=== PATIENT | female | born 1960 | race Caucasian/White ===

== ENCOUNTER → 2017-01-01 | Outpatient (REF) | payer MEDICARE, MEDICAID ==
[~2017-01-01] MED LIST: *PREMTA PO; /BACL20TA PO; /DULO30CA PO; /ESOM40CA PO; /ZOLP6ER PO; 3 DA0.1C TOP; ACET65TA OR; ALLE180T33 PO; AMBI12.52 PO; AMBIEN PO; AMIT25TA PO; AMOX250C3 PO; ASPI1TAB PO; ATOR1TAB21 PO; BUSP15TA PO; BUSP30TA PO; BUSPAR PO; CALCIUM/VIT D PO; CALCTAB68 PO; CETI10TA PO; COLA100C PO; COLA100C2 OR; CYCL10TA PO; DICL13PA TD; DULO1CAP3 PO; FLAG500T OR; GABA800T PO; KEFL250C OR; KEFL500C7 PO; LIDO5DIS TOP; METF1000 PO; METH-107 PO; MIRA3350 PO; MIRALEX OR; MIRALEX PO; MULTTAB17 PO; NEUR300C PO; NEUR600T PO; NORC5TAB PO; OMEP20TA7 PO; OXYB5TA PO; OXYC-517 PO; OXYC5CAP4 OR; PERC5TAB8 PO; REST0.05 OU; RIZA10TA2 PO; VICTOZA SC; VITA-113 PO; VITMTA PO; ZONI25CA2 PO; [UNRECOGNIZED DRUG - OTHER]
== END ==
LOC: M SFHCPLAZ 10:02
PROVIDERS: ATTEND Family Medicine
DX: Z53.8 Procedure and treatment not carried out for other reasons (principal); E11.3299 Type 2 diabetes mellitus wit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, unspecified eye; E55.9 Vitamin D deficiency, unspecified

== ENCOUNTER → 2017-01-21 | Outpatient (REF) | payer MEDICARE, MEDICAID ==
[2017-01-21 18:35] LABS: BASO % 0.4 % (0.0-1.0); EOS # 0.4 K/mm3 (0.0-0.50); EOS % 6.8 % (0.0-3.0); LARGE UNSTAINED CELL # 0.1 K/mm3 (0.0-0.4); LARGE UNSTAINED CELL % 2.3 % (0.0-4.0); LYMPH # 1.8 K/mm3 (1.5-4.5); MEAN CORPUSCULAR HEMOGLOBIN 35.8 pg (27.0-33.0); MEAN CORPUSCULAR VOLUME 105.4 fl (80.0-96.0); MONO # 0.4 K/mm3 (0.0-0.8); MONO % 7.2 % (0.0-5.0); NEUTROPHILS # 2.9 K/mm3 (1.8-7.7); NEUTROPHILS % 51.1 % (36.0-66.0); PLATELET COUNT, AUTOMATED 224 k/mm3 (150-450); RED CELL DISTRIBUTION WIDTH 12.4 % (11.5-14.5); WHITE BLOOD COUNT 5.7 K/mm3 (4.0-10.0)
[2017-01-21 18:58] LABS: ALBUMIN 3.2 GM/DL (3.2-5.2); ALBUMIN/GLOBULIN RATIO 1.03 (1.00-1.93); ALKALINE PHOSPHATASE 128 U/L (45-117); ALT/SGPT 25 U/L (12-78); ANION GAP 10 MEQ/L (8-16); AST/SGOT 35 U/L (15-37); BILIRUBIN,TOTAL 0.3 MG/DL (0.2-1.0); BLOOD UREA NITROGEN 11 MG/DL (7-18); CALCIUM LEVEL 8.3 MG/DL (8.5-10.1); CARBON DIOXIDE LEVEL 24 MEQ/L (21-32); CHLORIDE LEVEL 108 MEQ/L (98-107); CREATININE FOR GFR 0.68 MG/DL (0.55-1.02); GLOMERULAR FILTRATION RATE > 60.0 (>51); GLUCOSE, FASTING 158 MG/DL (70-105); POTASSIUM SERUM 4.3 MEQ/L (3.5-5.1); SODIUM LEVEL 142 MEQ/L (136-145); TOTAL PROTEIN 6.3 GM/DL (6.4-8.2)
[2017-01-21 19:21] LABS: FOLATE > 24.0 NG/ML; VITAMIN B12 LEVEL 1135 PG/ML
[2017-01-26 08:06] LABS: VITAMIN E LEVEL 9.2 mg/L (5.3-16.8)
== END ==
LOC: M LABNEURO 14:32
PROVIDERS: ATTEND Psychiatry & Neurology Neurology
DX: M21.379 Foot drop, unspecified foot (principal); S72.009S Fracture of unspecified part of neck of unspecified femur, sequela; Z98.1 Arthrodesis status; X58.XXXS Exposure to other specified factors, sequela; Y93.9 Activity, unspecified; Y92.9 Unspecified place or not applicable; Y99.8 Other external cause status

== ENCOUNTER → 2017-02-12 | Outpatient (REF) | payer MEDICARE, MEDICAID ==
[2017-02-12 14:10] LABS: ALBUMIN 3.2 GM/DL (3.2-5.2); ALKALINE PHOSPHATASE 125 U/L (45-117); ALT/SGPT 21 U/L (12-78); ANION GAP 6 MEQ/L (8-16); AST/SGOT 29 U/L (15-37); BILIRUBIN,TOTAL 0.4 MG/DL (0.2-1.0); BLOOD UREA NITROGEN 12 MG/DL (7-18); CALCIUM LEVEL 8.9 MG/DL (8.5-10.1); CARBON DIOXIDE LEVEL 28 MEQ/L (21-32); CHLORIDE LEVEL 108 MEQ/L (98-107); CHOLESTEROL LEVEL 87 MG/DL (<200); CREATININE FOR GFR 0.75 MG/DL (0.55-1.02); GLOMERULAR FILTRATION RATE > 60.0 (>51); GLUCOSE, FASTING 166 MG/DL (70-105); POTASSIUM SERUM 4.1 MEQ/L (3.5-5.1); SODIUM LEVEL 142 MEQ/L (136-145); TOTAL PROTEIN 6.4 GM/DL (6.4-8.2); TRIGLYCERIDES LEVEL 73 MG/DL (<150)
== END ==
LOC: M SFHCPLAZ 10:59
PROVIDERS: ATTEND Family Medicine
DX: E11.9 Type 2 diabetes mellitus without complications (principal); E55.9 Vitamin D deficiency, unspecified

== ENCOUNTER → 2017-04-01 | Outpatient (REF) | payer MEDICARE, MEDICAID ==
[~2017-04-01] MED LIST changes: -COLA100C PO; +COLA100C3 PO; +NORC1TAB4 PO; -NORC5TAB PO
[2017-04-01 13:00] LABS: ANION GAP 7 MEQ/L (8-16); BLOOD UREA NITROGEN 16 MG/DL (7-18); CALCIUM LEVEL 8.6 MG/DL (8.5-10.1); CARBON DIOXIDE LEVEL 31 MEQ/L (21-32); CHLORIDE LEVEL 103 MEQ/L (98-107); CREATININE FOR GFR 0.86 MG/DL (0.55-1.02); GLOMERULAR FILTRATION RATE > 60.0 (>51); GLUCOSE, FASTING 162 MG/DL (70-105); POTASSIUM SERUM 3.8 MEQ/L (3.5-5.1); SODIUM LEVEL 141 MEQ/L (136-145)
== END ==
LOC: M SFHCPLAZ 11:04
PROVIDERS: ATTEND Family Medicine
DX: E53.8 Deficiency of other specified B group vitamins (principal); E11.3299 Type 2 diabetes mellitus wit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, unspecified eye

== ENCOUNTER → 2017-04-15 | Outpatient (REF) | payer MEDICARE, MEDICAID ==
[2017-04-15 14:24] LABS: ANION GAP 10 MEQ/L (8-16); BLOOD UREA NITROGEN 13 MG/DL (7-18); CALCIUM LEVEL 8.4 MG/DL (8.5-10.1); CARBON DIOXIDE LEVEL 29 MEQ/L (21-32); CHLORIDE LEVEL 100 MEQ/L (98-107); CREATININE FOR GFR 0.78 MG/DL (0.55-1.02); GLOMERULAR FILTRATION RATE > 60.0 (>51); GLUCOSE, FASTING 121 MG/DL (70-105); POTASSIUM SERUM 4.2 MEQ/L (3.5-5.1); SODIUM LEVEL 139 MEQ/L (136-145)
== END ==
LOC: M SFHCPLAZ 12:13
PROVIDERS: ATTEND Physician Assistant Medical
DX: N18.3 Chronic kidney disease, stage 3 (moderate) (principal)
CPT/HCPCS: 36415; 80048; 86803; G0463

== ENCOUNTER → 2017-05-16 | Outpatient (REF) | payer MEDICARE, MEDICAID ==
[~2017-05-16] MED LIST changes: +ASPI81TAEC PO; +BACT400T PO; -COLA100C3 PO; +COLA100C5 PO; +DICL13PA TOP; +DULO1CAP2 PO; +FISH1000 PO; +HYDR-3716 PO; +HYDR1CAP25 PO; +KEFL500C17 PO; -KEFL500C7 PO; -METF1000 PO; +METF10004 PO; -METH-107 PO; +METH1TAB40 PO; +NAPR500T6 PO; +OMEP40CA2 PO; -OXYB5TA PO; +OXYB5TAB10 PO; +PEG1POW PO; +PERCOCET PO; +VICT18IN SC; +VIST25CA PO; +VITA200016 PO; +VITA500T3 PO; +ZOLP5TAB PO; +ZONI100C2 PO
== END ==
LOC: M SFHCPLAZ 15:01
PROVIDERS: ATTEND Family Medicine
DX: N39.0 Urinary tract infection, site not specified (principal)
CPT/HCPCS: 81001; 87088; 87186; G0463

== ENCOUNTER 2017-08-08 12:45 | Emergency (ER) | payer MEDICARE, MEDICAID ==
[~2017-08-08] VITALS: Ht 152.4 cm; Wt 91.0 kg
[~2017-08-08 12:45] MED LIST changes: -ASPI81TAEC PO; -BACT400T PO; -DICL13PA TOP; -DULO1CAP2 PO; -FISH1000 PO; -HYDR-3716 PO; -HYDR1CAP25 PO; -NAPR500T6 PO; -OMEP40CA2 PO; -PEG1POW PO; -PERCOCET PO; -VICT18IN SC; -VIST25CA PO; -VITA200016 PO; -VITA500T3 PO; -ZOLP5TAB PO; -ZONI100C2 PO
[2017-08-08] MEDS ORDERED: POLYSPORIN TOPICAL OINTMENT 15GM As Ordered ONE (13:23)
[2017-08-08] MEDS ORDERED: ADACEL/BOOSTRIX VACCINE (DIPHTH/PERTUSS/ACELL/TETANUS)0.5ML SYR (90715) IM ONE (13:30)
[2017-08-08] MEDS ORDERED: MORPHINE 10 MG/ML 1ML VIAL IM ONE (13:30)
[2017-08-08] MEDS ORDERED: BACITRACIN OINT 30GM TOP ONE (13:30)
--- NOTE | 2017-08-08 14:44 | REP ---
LEFT HIP, AP PELVIS THREE VIEWS: HISTORY: Fall. COMPARISON: 08/16/2016 The patient is status post ORIF of a left intertrochanteric fracture. An intramedullary vinnie and two screws are present. There is no acute fracture or dislocation. There is an old healed fracture of the left inferior pubic ramus. IMPRESSION: There is no acute fracture or dislocation. Signed by Hong Fields MD 08/08/2017 03:01 P
[2017-08-08] MEDS ORDERED: KETOROLAC 30 MG/ML VIAL (J1885) IV ONE (16:00)
[2017-08-08] MEDS ORDERED: KETOROLAC 60 MG/2 ML VIAL (J1885) IM ONE (16:15)
[2017-08-08] MEDS ORDERED: NAPR500T6 PO (16:32)
[2017-08-08 16:59] VITALS: BP 129/64
== END 2017-08-08 17:00 | disposition home or self-care (01) ==
LOC: M ED 12:45
DX: S50.312A Abrasion of left elbow, initial encounter (principal); S80.212A Abrasion, left knee, initial encounter; S70.02XA Contusion of left hip, initial encounter; W01.0XXA Fall on same level from slipping, tripping and stumbling without subsequent striking against object, initial encounter; Y92.410 Unspecified street and highway as the place of occurrence of the external cause; Y93.89 Activity, other specified; Y99.8 Other external cause status; E11.9 Type 2 diabetes mellitus without complications; G89.29 Other chronic pain; M54.9 Dorsalgia, unspecified; G43.909 Migraine, unspecified, not intractable, without status migrainosus; Z79.4 Long term (current) use of insulin; Z88.1 Allergy status to other antibiotic agents; Z88.8 Allergy status to other drugs, medicaments and biological substances; Z91.013 Allergy to seafood; Z91.040 Latex allergy status; Z87.891 Personal history of nicotine dependence
CPT/HCPCS: 73502; 90715; 96372; 96374; 99283; J1885

== ENCOUNTER 2017-08-15 11:43 | Inpatient (IN) | payer MEDICARE, MEDICAID ==
[~2017-08-15] VITALS: Ht 160 cm; Wt 99.3 kg
[~2017-08-15 11:43] MED LIST changes: +NAPR500T6 PO
[2017-08-15] MEDS ORDERED: MORPHINE 4 MG/ML 1ML SYRINGE IV ONE ×3 (13:00→20:00)
[2017-08-15] MEDS ORDERED: NS 1,000 ML IV ONE (13:00)
[2017-08-15 13:46] LABS: BASO % 0.5 % (0.0-1.0); EOS # 0.7 10^3/uL (0.0-0.50); EOS % 8.2 % (0.0-3.0); IMMATURE GRANULOCYTE % 1.1 % (0-0); LYMPH % 24.8 % (24.0-44.0); MEAN CORPUSCULAR HEMOGLOBIN 36.1 pg (27.0-33.0); MEAN CORPUSCULAR HGB CONC 34.5 g/dl (32.0-36.5); MEAN CORPUSCULAR VOLUME 104.7 fl (80.0-96.0); MONO # 0.7 10^3/uL (0.0-0.8); MONO % 9.1 % (0.0-5.0); NEUTROPHILS # 4.5 10^3/uL (1.8-7.7); NEUTROPHILS % 56.3 % (36.0-66.0); PLATELET COUNT, AUTOMATED 234 10^3/uL (150-450); RED CELL DISTRIBUTION WIDTH 12.3 % (11.5-14.5)
[2017-08-15 14:17] LABS: ALBUMIN 2.6 GM/DL (3.2-5.2); ALBUMIN/GLOBULIN RATIO 0.74 (1.00-1.93); ALKALINE PHOSPHATASE 156 U/L (45-117); ALT/SGPT 26 U/L (12-78); ANION GAP 7 MEQ/L (8-16); AST/SGOT 30 U/L (15-37); BILIRUBIN,DIRECT 0.2 MG/DL (0.0-0.2); BILIRUBIN,TOTAL 0.5 MG/DL (0.2-1.0); BLOOD UREA NITROGEN 18 MG/DL (7-18); CALCIUM LEVEL 8.4 MG/DL (8.5-10.1); CARBON DIOXIDE LEVEL 25 MEQ/L (21-32); CHLORIDE LEVEL 110 MEQ/L (98-107); CREATININE FOR GFR 0.66 MG/DL (0.55-1.02); GLOMERULAR FILTRATION RATE > 60.0 (>51); GLUCOSE, FASTING 153 MG/DL (70-105); POTASSIUM SERUM 4.2 MEQ/L (3.5-5.1); SODIUM LEVEL 142 MEQ/L (136-145); TOTAL PROTEIN 6.1 GM/DL (6.4-8.2)
[2017-08-15] MEDS ORDERED: PROHANCE 279.3MG/ML 5ML VIAL (A9576) As Ordered ONE (18:56)
[2017-08-15] MEDS ORDERED: PROHANCE 279.3MG/ML 15ML VIAL (A9576) As Ordered ONE (18:56)
[2017-08-15] MEDS ORDERED: ONDANSETRON 4MG/2ML VIAL (J2405) IV ONE (20:00)
--- NOTE | 2017-08-15 20:30 | REPUSA ---
MRI of the lumbar spine with and without contrast Clinical statement: fall, incontinence. Technique: Multiecho multiplanar MRI images of the lumbar spine were obtained before and after minist ration of intravenous gadolinium contrast. Comparison: 07/19/2009. Findings: The lumbar vertebral bodies are in satisfactory position and alignment. Surgical fusion shi nges with interpedicular screws are seen at L4/L5. Susceptibility artifact limits evaluation in this region. No fractures or dislocations are demonstrated. Normal heterogeneous bone marrow signal is not ed. No osseous tumors are seen. The intervertebral disc heights are well maintained and demonstrate n ormal signal. The filum terminale and conus medullaris appear unremarkable. The spinal cord demonstra flavia normal signal and contour. The surrounding soft tissues are within normal limits. At L2/L3, there is a minimal disc bulge noted. There is no evidence of disc herniation or central can al stenosis. At the other lumbar vertebral levels, there is no evidence of disc herniation or protrus ion. There is no central canal stenosis. The neural foramina are patent bilaterally. Impression: 1. No evidence of central canal narrowing or neural foraminal stenosis. 2. Minimal disc bulging at L2/L3. 3. Surgical fusion changes at L4/L5 are grossly intact.
[2017-08-15] MEDS ORDERED: DEXTROSE 50% 50 ML SYRINGE IV PRN (23:00)
[2017-08-15] MEDS ORDERED: GLUCOSE 4 GM CHEW TABLET PO PRN (23:00)
[2017-08-15] MEDS ORDERED: GLUCAGON FOR INJ 1 MG VIAL (J1610) SC PRN (23:00)
--- NOTE | 2017-08-15 23:00 | HPEPDOC ---
General Date of Admission Aug 15, 2017 at 20:55 Primary Care Physician: Andrew Beck M.D. Chief Complaint The patient is a 57-year-old female admitted with a reason for visit of Intractable Back Pain. Source: Patient Exam Limitations: No limitations Timing/Duration: Week(s) (1) Associated Symptoms: Fever, Weakness, Dizziness, Mechanical fall History of Present Illness 57 y/o f w/ past med hx. dm2, peripheral neuropathy of b/l LE, anxiety, depression, chronic low back pain, neurogenic bladder and insomnia presents to ED with complaint of low back pain with radiation down the back of both legs. The pt states she fell one week ago on her back side and came to ED, imaging was done that ruled out fracture or dislocation, she was given pain meds and pt eval. and went home. States over past week pain in low back is so bad she cannot take care of herself now, she states it is in middle of low back, achy and burning with radiation down both legs with associated numbness and tingling and b/l leg weakness, has not fallen again since one week ago, denies any other trauma. States felt hot at home but never took her temp, a bit nauseas for past few days, no vomiting, loose stool x2 one day ago, no blood or mucus. Admits to headache in ED frontal and over left eye, no change in vision. No incontinence urine or bowel , no numbness in groin. No other muscle aches or chills, no night sweats, no sick contact nor travel. States pain in low back is 10+. Denies blood in urine or stool, nor pain with urination or defecation. Home Medications Scheduled (Restasis) 0.05 % Emu, 1 DROP OU BID, (Reported) Amitriptyline HCl (Amitriptyline HCl) 25 Mg Tab, 25 MG PO QHS, (Reported) Aspirin (Aspirin 81) 81 Mg Tab, 81 MG PO DAILY, (Reported) Atorvastatin Calcium (Atorvastatin Calcium) 20 Mg Tab, 20 MG PO DAILY, (Reported ) Buspirone HCl (Buspirone HCl) 30 Mg Tab, 30 MG PO BID, (Reported) Calcium/Vitamin D (Calcium 600 + D 600-400 mg-Unit) 1 Tab Tab, 1 TAB PO DAILY, ( Reported) Cephalexin Monohydrate (Keflex) 500 Mg Cap, 500 MG PO QHS, (Reported) Cyclobenzaprine HCl (Cyclobenzaprine HCl) 10 Mg Tab, 10 MG PO TID, (Reported) Diclofenac Epolamine (Flector) 1 Patch Tdsy, 1 PATCH TD Q12H, (Reported) apply left greater trochanter Docusate Sodium (Colace) 100 Mg Cap, 100 MG PO BID, (Reported) Duloxetine Hcl (Duloxetine HCl) 60 Mg Cap, 60 MG PO DAILY, (Reported) Fexofenadine Hydrochloride (Kim Allergy) 180 Mg Tab, 180 MG PO DAILY, ( Reported) Gabapentin (Gabapentin) 800 Mg Tab, 800 MG PO TID, (Reported) Metformin Hydrochloride (Metformin HCl) 1,000 Mg Tab, 1,000 MG PO BID, (Reported ) Multivitamins *[facility] STOCKED* (Thera M Plus *[facility] STOCKED*) 1 Tab Tab, 1 TAB PO DAILY, (Reported) Oxybutynin Chloride (Oxybutynin Chloride) 5 Mg Tab, 5 MG PO BID, (Reported) Polyethylene Glycol (Miralax) 1 Pow Pow, 1 PKT PO DAILY, (Reported) Zolpidem Tartrate (Ambien Cr) 12.5 Mg Tab, 12.5 MG PO QHS, (Reported) Zonisamide (Zonisamide) 25 Mg Cap, 50 MG PO BID, (Reported) Scheduled PRN (Clotrimazole) 2 % Cre, 1 DOSE TOP PRN PRN for ULCERS, (Reported) APPLY TO CHEEKS AND BUTTOCKS Acetaminophen/Hydrocodone (Sherrill 5-325 mg) 1 Tab Tab, 1 TAB PO Q4HP PRN for MILD /MODERATE PAIN (PS 1-7), (Reported) Naproxen (Naproxen Dr) 500 Mg Tab, 500 MG PO BIDP PRN for PAIN Rizatriptan Benzoate (Rizatriptan Benzoate) 10 Mg Tab, 10 MG PO PRN PRN for MIGRAINE, (Reported) Allergies Coded Allergies: Latex (Unverified Allergy, Intermediate, 02/10/13) Fluconazole (Unverified Allergy, Unknown, HIVES, 08/16/16) Quinolones (Verified Allergy, Unknown, CIPRO, 02/10/13) [place] (Verified Allergy, Unknown, 02/10/13) Past Medical History Medical History dm2 chronic low back pain anxiety insomnia depression neurogenic bladder Surgical History Lumbar fusion, left hip open reduction internal fixation Family History Significant Family History: No pertinent family hx Social History * Smoker: Denies Alcohol: Denies Drugs: denies Psychosocial History: Anxiety, Depression Review of Symptoms Constitutional: Reports: Chills, Fever, Malaise, Weakness, Fatigue, Denies: Night Sweats, Weight Loss Eyes: Denies: Pain, Vision change, Conjunctivae inflammation ENT: Reports: Head Aches, Denies: Ear Pain Skin: Denies: Rash, Lesions Pulmonary: Denies: Dyspnea, Cough Cardiovascular: Reports: Lt Headedness, Denies: Chest Pain, Palpitations, Orthopnea, Paroxysmal Noc. Dyspnea, Edema Gastrointestinal: Reports: Nausea, Diarrhea, Denies: Vomiting, Abdominal Pain, Constipation, Melena, Hematochezia Genitourinary: Denies: Dysuria, Frequency Neurological: Reports: Weakness, Numbness, Incoordination, Denies: Change in speech, Confusion Psych: Reports: Anxiety, Denies: Mood Normal, Depression Physical Examination General Exam: Positive: Alert, Cooperative, Mild Distress Eye Exam: Positive: Conjunctiva & lids normal, EOMI, Negative: Sclera icteric, Ptosis ENT Exam: Positive: Atraumatic, Mucous membr. moist/pink, Pharynx Normal, Tongue Midline Chest Exam: Positive: Clear to auscultation, Normal air movement, Diminished, Negative: Rales, Rhonchi, Wheezing Heart Exam: Positive: Rate Normal, Normal S1, Normal S2, Negative: Tachycardic, Bradycardic Telemetry: Positive: No significant arrhythmia Abdomen Exam: Positive: Normal bowel sounds, Soft, Negative: Tenderness, Hepatospenomegaly Extremity Exam: Positive: Other (pain in center back low), Negative: Clubbing, Cyanosis, Edema Psych Exam: Positive: Mental status NL Vital Signs Vital Signs Date Time Temp Pulse Resp B/P (MAP) Pulse Ox O2 Delivery O2 Flow Rate FiO2 08/15/17 20:34 18 08/15/17 20:30 73 122/57 (78) 95 Room Air 08/15/17 14:12 98.0 Laboratory Data Labs 24H Laboratory Tests 2 08/15/17 13:23: Immature Granulocyte % (Auto) 1.1H, White Blood Count 8.0, Red Blood Count 3.38L , Hemoglobin 12.2, Hematocrit 35.4L, Mean Corpuscular Volume 104.7H, Mean Corpuscular Hemoglobin 36.1H, Mean Corpuscular Hemoglobin Concent 34.5, Red Cell Distribution Width 12.3, Platelet Count 234, Neutrophils (%) (Auto) 56.3, Lymphocytes (%) (Auto) 24.8, Monocytes (%) (Auto) 9.1H, Eosinophils (%) (Auto) 8.2H, Basophils (%) (Auto) 0.5, Neutrophils # (Auto) 4.5, Lymphocytes # (Auto) 2.0, Monocytes # (Auto) 0.7, Eosinophils # (Auto) 0.7H, Basophils # (Auto) 0.0, Immature Granulocyte # (Auto) 0.1H, Nucleated Red Blood Cells % (auto) 0.0, Anion Gap 7L, Glomerular Filtration Rate > 60.0, Calcium Level 8.4L, Aspartate Amino Transf (AST/SGOT) 30, Alanine Aminotransferase (ALT/SGPT) 26, Alkaline Phosphatase 156H, Total Bilirubin 0.5, Direct Bilirubin 0.2, Total Protein 6.1L , Albumin 2.6L, Albumin/Globulin Ratio 0.74L 08/15/17 13:55: Urine Appearance CLEAR, Urine Color YELLOW, Urine pH 6.0, Urine Specific [place] 1.015, Urine Protein NEGATIVE, Urine Glucose (UA) NEGATIVE, Urine Ketones NEGATIVE, Urine Urobilinogen 4.0H, Urine Bilirubin NEGATIVE, Urine Leukocyte Esterase NEGATIVE, Urine Blood NEGATIVE, Urine Nitrite NEGATIVE, Urine WBC (Auto) 1, Urine RBC (Auto) 0, Urine Hyaline Casts (Auto) 0, Urine Bacteria (Auto) NEGATIVE, Urine Squamous Epithelial Cells 0, Urine Mucus (Auto) SMALL, Urine Sperm (Auto) CBC/BMP Laboratory Tests 08/15/17 13:23 Red Blood Count 3.38 L, Mean Corpuscular Volume 104.7 H, Mean Corpuscular Hemoglobin 36.1 H, Mean Corpuscular Hemoglobin Concent 34.5, Red Cell Distribution Width 12.3, Neutrophils (%) (Auto) 56.3, Lymphocytes (%) (Auto) 24.8, Monocytes (%) (Auto) 9.1 H, Eosinophils (%) (Auto) 8.2 H, Basophils (%) ( Auto) 0.5, Neutrophils # (Auto) 4.5, Lymphocytes # (Auto) 2.0, Monocytes # (Auto ) 0.7, Eosinophils # (Auto) 0.7 H, Basophils # (Auto) 0.0 Problems (1) Intractable back pain Status: Acute Response to Treatment: Stable Problem Text: pt admitted due to inability to care for herself ordered PT/OT consider placement pain control w morphine MRI L spine: Impression: 1. No evidence of central canal narrowing or neural foraminal stenosis. 2. Minimal disc bulging at L2/L3. 3. Surgical fusion changes at L4/L5 are grossly intact. (2) Diabetes mellitus Status: Chronic Response to Treatment: Stable Problem Text: d/c metformin sliding scale in house (3) Anxiety Status: Chronic Response to Treatment: Stable Problem Text: c/w home meds (4) Neuropathy Status: Chronic Response to Treatment: Stable Problem Text: c/w home meds (5) Neurogenic bladder Status: Chronic Response to Treatment: Stable Problem Text: c/w home meds (6) DVT prophylaxis Status: Acute Response to Treatment: Stable Problem Text: scd teds Plan / VTE VTE Prophylaxis Ordered?: Yes Plan / Urinary Catheter Reason for insertion/continuin: Acute obstruct/retention GME ATTESTATION GME ATTESTATION My preceptor for this patient encounter was physically present in the building during the encounter and was fully available. As needed, all aspects of the patient interview, examination, medical decision making process, and medical care plan development were reviewed and approved by the preceptor. Preceptor is aware and concurs with the plan as stated in the body of this note and will attest to such by his/her cosignature. MONIKA TROTTER DO Aug 15, 2017 23:00
[2017-08-15 23:10] VITALS: BP 105/57
[2017-08-15] MEDS: MORPHINE 2 MG/ML 1ML SYRINGE IV PRN (23:25)
[2017-08-15] MEDS ORDERED: ASPI81TAEC PO (23:28)
[2017-08-15] MEDS ORDERED: NAPR500T6 PO (23:28)
[2017-08-15] MEDS ORDERED: PEG1POW PO (23:28)
[2017-08-15] MEDS ORDERED: ZOLP5TAB PO (23:28)
[2017-08-15] MEDS ORDERED: HYDR-3716 PO (23:28)
[2017-08-15] MEDS ORDERED: ZONI100C2 PO (23:28)
[2017-08-15] MEDS ORDERED: DULO1CAP2 PO (23:28)
[2017-08-15] MEDS ORDERED: RIZATRIPTAN BENZOATE 10 MG TAB PO PRN (23:45)
[2017-08-15] MEDS ORDERED: POLYVINYL ALCOHOL OPHTH SOLN 15 ML(LIQUITEARS) OU PRN (23:45)
[2017-08-15] MEDS ORDERED: NAPROXEN 250 MG TAB PO PRN (23:45)
[2017-08-16] VITALS: BP 105/57
[2017-08-16] MEDS ORDERED: HYDR1CAP25 PO (00:42)
[2017-08-16] MEDS ORDERED: VIST25CA PO (00:42)
[2017-08-16] MEDS ORDERED: FISH1000 PO (00:42)
[2017-08-16] MEDS ORDERED: OMEP40CA2 PO (00:42)
[2017-08-16] MEDS ORDERED: VITA200016 PO (00:42)
[2017-08-16] MEDS ORDERED: BACT400T PO (00:42)
[2017-08-16] MEDS: zolPIDEM TARTRATE 5 MG TAB PO PRN ×2 (00:43→20:01)
[2017-08-16] MEDS: DULoxetine 30 MG CAP (CYMBALTA) PO SCH ×2 (00:44→20:01)
[2017-08-16] MEDS: busPIRone 10 MG TAB PO SCH ×3 (00:44→20:01)
[2017-08-16] MEDS: GABAPENTIN 400 MG CAP PO SCH ×5 (00:45→20:00)
[2017-08-16] MEDS: AMITRIPTYLINE 25 MG TAB PO SCH ×2 (00:45→20:01)
[2017-08-16] MEDS: ASPIRIN 81 MG ENTERIC TAB PO SCH ×2 (00:45→20:01)
[2017-08-16] MEDS ORDERED: VICT18IN SC (00:46)
[2017-08-16] MEDS: oxyBUTYnin 5 MG TAB PO SCH ×3 (00:46→20:01)
[2017-08-16] MEDS ORDERED: VITA500T3 PO (00:46)
[2017-08-16] MEDS: ZONISAMIDE 100 MG CAP (ZONEGRAN) PO SCH ×3 (00:46→20:01)
[2017-08-16] MEDS: CLOTRIMAZOLE 1% TOPICAL CREAM 30GM TOP SCH ×3 (00:46→20:02)
[2017-08-16] MEDS ORDERED: METH1TAB40 PO (00:46)
[2017-08-16] MEDS: MORPHINE 2 MG/ML 1ML SYRINGE IV PRN ×6 (03:51→22:19)
[2017-08-16 06:00] VITALS: BP 107/65
[2017-08-16 06:58] LABS: BASO # 0.1 10^3/uL (0.0-0.2); BASO % 0.6 % (0.0-1.0); EOS # 0.7 10^3/uL (0.0-0.50); EOS % 9.1 % (0.0-3.0); LYMPH # 2.2 10^3/uL (1.5-4.5); LYMPH % 28.3 % (24.0-44.0); MEAN CORPUSCULAR HEMOGLOBIN 35.6 pg (27.0-33.0); MEAN CORPUSCULAR HGB CONC 33.8 g/dl (32.0-36.5); MONO # 0.9 10^3/uL (0.0-0.8); MONO % 11.6 % (0.0-5.0); NEUTROPHILS # 3.8 10^3/uL (1.8-7.7); NEUTROPHILS % 49.4 % (36.0-66.0); PLATELET COUNT, AUTOMATED 229 10^3/uL (150-450); RED CELL DISTRIBUTION WIDTH 12.2 % (11.5-14.5); WHITE BLOOD COUNT 7.8 10^3/uL (4.0-10.0)
[2017-08-16 07:01] LABS: ADD MORPHOLOGY? YES; MEAN CORPUSCULAR VOLUME 105.3 fl (80.0-96.0)
[2017-08-16 07:29] LABS: ANION GAP 6 MEQ/L (8-16); BLOOD UREA NITROGEN 14 MG/DL (7-18); CALCIUM LEVEL 8.1 MG/DL (8.5-10.1); CARBON DIOXIDE LEVEL 27 MEQ/L (21-32); CHLORIDE LEVEL 110 MEQ/L (98-107); CREATININE FOR GFR 0.65 MG/DL (0.55-1.02); GLOMERULAR FILTRATION RATE > 60.0 (>51); GLUCOSE, FASTING 124 MG/DL (70-105); POTASSIUM SERUM 4.6 MEQ/L (3.5-5.1); SODIUM LEVEL 143 MEQ/L (136-145)
[2017-08-16 08:05] LABS: POLYCHROMASIA 1+
[2017-08-16] MEDS: HumaLOG INSULIN (NovoLOG) PER UNIT SC SCH ×4 (08:05→21:00)
[2017-08-16] MEDS: FEXOFENADINE 60 MG TAB PO SCH (08:09)
[2017-08-16] MEDS: ATORVASTATIN 20 MG TAB PO SCH (08:09)
[2017-08-16] MEDS: MULTIVITAMINS/MINERALS THERAP 1 TAB PO SCH (08:09)
--- NOTE | 2017-08-16 08:30 | IPNPDOC ---
Subjective Date Seen The patient was seen on 08/16/17. Subjective Chief Complaint/HPI The patient is a 57-year-old female admitted with a reason for visit of Intractable Back Pain. Events since last encounter Still with significant back pain unable to participated much with PT. Constitutional: Denies: Chills, Fever Pulmonary: Denies: Dyspnea, Cough Cardiovascular: Denies: Chest Pain, Palpitations, Orthopnea Gastrointestinal: Denies: Nausea, Vomiting, Abdominal Pain, Diarrhea, Constipation Musculoskeletal: Reports: Back Pain Objective Physical Examination General Exam: Positive: Alert, Mild Distress (pain with trying t) ENT Exam: Positive: Atraumatic Chest Exam: Positive: Clear to auscultation, Normal air movement, Diminished, Negative: Rales, Rhonchi, Wheezing Heart Exam: Positive: Rate Normal, Normal S1, Normal S2, Negative: Tachycardic, Bradycardic Abdomen Exam: Positive: Normal bowel sounds, Soft, Negative: Tenderness Extremity Exam: Positive: Other (pain in center back low), Negative: Edema Neuro Exam: Positive: Strength at 5/5 X4 ext (LE movement limited by back pain) Psych Exam: Positive: Mental status NL Assessment /Plan Problems (1) Intractable back pain Status: Acute Response to Treatment: Stable Problem Text: pt admitted due to inability to care for herself ordered PT/OT consider placement pain control w morphine Normally on [place] 7.5 at homea along with Gabapentin 1200 mg TID, Cymbalta, and Methocarbamol (Methocarbamol on hold here - may want to restart this) Voltaren gel not covered at home, but I will order topical NSAID while she is here Unable to take oral NSAIDs due to Gastric Bypass she declines pain management referral - states she will never get another injection due to a poor reaction to one in the past MRI L spine: Impression: 1. No evidence of central canal narrowing or neural foraminal stenosis. 2. Minimal disc bulging at L2/L3. 3. Surgical fusion changes at L4/L5 are grossly intact. (2) Diabetes mellitus Status: Chronic Response to Treatment: Stable Problem Text: d/c metformin sliding scale in house (3) Anxiety Status: Chronic Response to Treatment: Stable Problem Text: c/w home meds (4) Neuropathy Status: Chronic Response to Treatment: Stable Problem Text: c/w home meds (5) Neurogenic bladder Status: Chronic Response to Treatment: Stable Problem Text: c/w home meds (6) DVT prophylaxis Status: Acute Response to Treatment: Stable Problem Text: scd teds Plan/VTE VTE Prophylaxis Ordered?: Yes Plan/Urinary Catheter Reason for insertion/continuin: Acute obstruct/retention VS, I&O, 24H, Fishbone Vital Signs/I&O Vital Signs Date Time Temp Pulse Resp B/P (MAP) Pulse Ox O2 Delivery O2 Flow Rate FiO2 08/16/17 08:08 16 Room Air 08/16/17 06:00 97.5 81 107/65 (79) 95 I&O- Last 24 Hours up to 6 AM 08/17/17 06:00 Output Total 325 ml Balance -325 ml Laboratory Data 24H LABS Laboratory Tests 2 08/15/17 13:23: Immature Granulocyte % (Auto) 1.1H, White Blood Count 8.0, Red Blood Count 3.38L , Hemoglobin 12.2, Hematocrit 35.4L, Mean Corpuscular Volume 104.7H, Mean Corpuscular Hemoglobin 36.1H, Mean Corpuscular Hemoglobin Concent 34.5, Red Cell Distribution Width 12.3, Platelet Count 234, Neutrophils (%) (Auto) 56.3, Lymphocytes (%) (Auto) 24.8, Monocytes (%) (Auto) 9.1H, Eosinophils (%) (Auto) 8.2H, Basophils (%) (Auto) 0.5, Neutrophils # (Auto) 4.5, Lymphocytes # (Auto) 2.0, Monocytes # (Auto) 0.7, Eosinophils # (Auto) 0.7H, Basophils # (Auto) 0.0, Immature Granulocyte # (Auto) 0.1H, Nucleated Red Blood Cells % (auto) 0.0, Anion Gap 7L, Glomerular Filtration Rate > 60.0, Calcium Level 8.4L, Aspartate Amino Transf (AST/SGOT) 30, Alanine Aminotransferase (ALT/SGPT) 26, Alkaline Phosphatase 156H, Total Bilirubin 0.5, Direct Bilirubin 0.2, Total Protein 6.1L , Albumin 2.6L, Albumin/Globulin Ratio 0.74L 08/15/17 13:55: Urine Appearance CLEAR, Urine Color YELLOW, Urine pH 6.0, Urine Specific [place] 1.015, Urine Protein NEGATIVE, Urine Glucose (UA) NEGATIVE, Urine Ketones NEGATIVE, Urine Urobilinogen 4.0H, Urine Bilirubin NEGATIVE, Urine Leukocyte Esterase NEGATIVE, Urine Blood NEGATIVE, Urine Nitrite NEGATIVE, Urine WBC (Auto) 1, Urine RBC (Auto) 0, Urine Hyaline Casts (Auto) 0, Urine Bacteria (Auto) NEGATIVE, Urine Squamous Epithelial Cells 0, Urine Mucus (Auto) SMALL, Urine Sperm (Auto) 08/16/17 06:34: Immature Granulocyte % (Auto) 1.0H, White Blood Count 7.8, Red Blood Count 3.23L , Hemoglobin 11.5L, Hematocrit 34.0L, Mean Corpuscular Volume 105.3H, Mean Corpuscular Hemoglobin 35.6H, Mean Corpuscular Hemoglobin Concent 33.8, Red Cell Distribution Width 12.2, Platelet Count 229, Neutrophils (%) (Auto) 49.4, Lymphocytes (%) (Auto) 28.3, Monocytes (%) (Auto) 11.6H, Eosinophils (%) (Auto) 9.1H, Basophils (%) (Auto) 0.6, Neutrophils # (Auto) 3.8, Lymphocytes # (Auto) 2.2, Monocytes # (Auto) 0.9H, Eosinophils # (Auto) 0.7H, Basophils # (Auto) 0.1 , Immature Granulocyte # (Auto) 0.1H, Nucleated Red Blood Cells % (auto) 0.0, Anion Gap 6L, Glomerular Filtration Rate > 60.0, Calcium Level 8.1L, Platelet Estimate NORMAL, Polychromasia 1+, Macrocytosis 1+, Blood Urea Nitrogen 14, Creatinine 0.65, Sodium Level 143, Potassium Level 4.6, Chloride Level 110H, Carbon Dioxide Level 27 CBC/BMP Laboratory Tests 08/15/17 13:23 Red Blood Count 3.38 L, Mean Corpuscular Volume 104.7 H, Mean Corpuscular Hemoglobin 36.1 H, Mean Corpuscular Hemoglobin Concent 34.5, Red Cell Distribution Width 12.3, Neutrophils (%) (Auto) 56.3, Lymphocytes (%) (Auto) 24.8, Monocytes (%) (Auto) 9.1 H, Eosinophils (%) (Auto) 8.2 H, Basophils (%) ( Auto) 0.5, Neutrophils # (Auto) 4.5, Lymphocytes # (Auto) 2.0, Monocytes # (Auto ) 0.7, Eosinophils # (Auto) 0.7 H, Basophils # (Auto) 0.0 08/16/17 06:34 Red Blood Count 3.23 L, Mean Corpuscular Volume 105.3 H, Mean Corpuscular Hemoglobin 35.6 H, Mean Corpuscular Hemoglobin Concent 33.8, Red Cell Distribution Width 12.2, Neutrophils (%) (Auto) 49.4, Lymphocytes (%) (Auto) 28.3, Monocytes (%) (Auto) 11.6 H, Eosinophils (%) (Auto) 9.1 H, Basophils (%) ( Auto) 0.6, Neutrophils # (Auto) 3.8, Lymphocytes # (Auto) 2.2, Monocytes # (Auto ) 0.9 H, Eosinophils # (Auto) 0.7 H, Basophils # (Auto) 0.1, Calcium Level 8.1 L BRAYDEN COLÓN PA-C Aug 16, 2017 08:30
[2017-08-16] MEDS: ENOXAPARIN 40 MG/0.4 ML SYRINGE (J1650) SC SCH (10:26)
[2017-08-16] MEDS: DICLOFENAC EPOLAMINE 1.3 % PATCH TOP SCH ×2 (10:27→20:00)
[2017-08-16 14:00] VITALS: BP 136/64
[2017-08-16] MEDS ORDERED: DULoxetine 30 MG CAP (CYMBALTA) PO SCH (21:00)
[2017-08-16 22:00] VITALS: BP 140/80
[2017-08-16] MEDS: MIRALAX *UNIT DOSE* 17GM PACKET PO PRN (23:35)
[2017-08-16] MEDS: DOCUSATE SODIUM 100 MG CAP PO PRN (23:35)
[2017-08-17] MEDS: MORPHINE 2 MG/ML 1ML SYRINGE IV PRN ×5 (01:47→21:50)
[2017-08-17 06:00] VITALS: BP 104/60
[2017-08-17 06:24] LABS: BASO # 0.1 10^3/uL (0.0-0.2); BASO % 0.8 % (0.0-1.0); EOS # 0.6 10^3/uL (0.0-0.50); EOS % 6.4 % (0.0-3.0); IMMATURE GRANULOCYTE % 1.5 % (0-0); LYMPH # 3.3 10^3/uL (1.5-4.5); LYMPH % 35.7 % (24.0-44.0); MEAN CORPUSCULAR HEMOGLOBIN 35.6 pg (27.0-33.0); MEAN CORPUSCULAR HGB CONC 34.5 g/dl (32.0-36.5); MEAN CORPUSCULAR VOLUME 103.2 fl (80.0-96.0); MONO % 11.2 % (0.0-5.0); NEUTROPHILS # 4.1 10^3/uL (1.8-7.7); NEUTROPHILS % 44.4 % (36.0-66.0); PLATELET COUNT, AUTOMATED 273 10^3/uL (150-450); RED CELL DISTRIBUTION WIDTH 11.9 % (11.5-14.5); WHITE BLOOD COUNT 9.1 10^3/uL (4.0-10.0)
[2017-08-17 06:48] LABS: ANION GAP 8 MEQ/L (8-16); BLOOD UREA NITROGEN 15 MG/DL (7-18); CARBON DIOXIDE LEVEL 24 MEQ/L (21-32); CHLORIDE LEVEL 109 MEQ/L (98-107); CREATININE FOR GFR 0.69 MG/DL (0.55-1.02); GLOMERULAR FILTRATION RATE > 60.0 (>51); GLUCOSE, FASTING 138 MG/DL (70-105); POTASSIUM SERUM 4.2 MEQ/L (3.5-5.1); SODIUM LEVEL 141 MEQ/L (136-145)
[2017-08-17] MEDS: HumaLOG INSULIN (NovoLOG) PER UNIT SC SCH ×4 (07:30→21:00)
[2017-08-17] MEDS ORDERED: INFLUENZA QUADRIVALENT PF VACCINE 0.5ML SYRINGE (90686) IM ONE (09:00)
[2017-08-17] MEDS: CLOTRIMAZOLE 1% TOPICAL CREAM 30GM TOP SCH ×2 (09:00→21:52)
[2017-08-17] MEDS: DICLOFENAC EPOLAMINE 1.3 % PATCH TOP SCH ×2 (09:00→21:51)
[2017-08-17] MEDS: busPIRone 10 MG TAB PO SCH ×2 (10:48→21:52)
[2017-08-17] MEDS: GABAPENTIN 400 MG CAP PO SCH ×4 (10:49→21:52)
[2017-08-17] MEDS: FEXOFENADINE 60 MG TAB PO SCH (10:50)
[2017-08-17] MEDS: MULTIVITAMINS/MINERALS THERAP 1 TAB PO SCH (10:51)
[2017-08-17] MEDS: ZONISAMIDE 100 MG CAP (ZONEGRAN) PO SCH ×2 (10:51→21:52)
[2017-08-17] MEDS: oxyBUTYnin 5 MG TAB PO SCH ×2 (10:52→21:52)
[2017-08-17] MEDS: ATORVASTATIN 20 MG TAB PO SCH (10:52)
[2017-08-17] MEDS: ENOXAPARIN 40 MG/0.4 ML SYRINGE (J1650) SC SCH (10:53)
[2017-08-17 14:00] VITALS: BP 133/79
[2017-08-17] MEDS: DULoxetine 30 MG CAP (CYMBALTA) PO SCH (21:51)
[2017-08-17] MEDS: ASPIRIN 81 MG ENTERIC TAB PO SCH (21:52)
[2017-08-17] MEDS: AMITRIPTYLINE 25 MG TAB PO SCH (21:52)
[2017-08-17] MEDS: zolPIDEM TARTRATE 5 MG TAB PO PRN (21:52)
[2017-08-17 22:00] VITALS: BP 108/69
--- NOTE | 2017-08-17 22:05 | IPNPDOC ---
Subjective Date Seen The patient was seen on 08/17/17. Subjective Chief Complaint/HPI The patient is a 57-year-old female admitted with a reason for visit of Intractable Back Pain. Events since last encounter The patient reports she was able to get up with physical therapy and move from her bed to chair only. This is about 3 feet. Nursing reports that she is doing a little better today than she was. The patient requests whether it's possible to modify her pain management regimen or out a muscle relaxer. She is reporting muscle spasms on a regular basis. General: Reports: Normal Appetite Constitutional: Denies: Fever Pulmonary: Denies: Cough Cardiovascular: Denies: Chest Pain Musculoskeletal: Reports: Back Pain Neurological: Reports: Weakness Objective Physical Examination General Exam: Positive: Alert, Mild Distress (related to her back pain or thinking about her back pain while lying still in bed) Eye Exam: Positive: Conjunctiva & lids normal, Negative: Sclera icteric ENT Exam: Positive: Atraumatic Neck Exam: Negative: Lymphadenopathy Chest Exam: Positive: Clear to auscultation, Normal air movement, Diminished ( possibly related to obesity-hypoventilation syndrome), Negative: Rales, Rhonchi, Wheezing Heart Exam: Positive: Rate Normal, Normal S1, Normal S2 Abdomen Exam: Positive: Normal bowel sounds, Soft, Negative: Tenderness Extremity Exam: Negative: Edema Psych Exam: Positive: Anxiety Assessment /Plan Problems (1) Intractable back pain Status: Acute Response to Treatment: Stable Problem Text: Pt admitted due to intractable back pain causing an inability to care for herself. Pain control w morphine; I added cyclobenzaprine today to see if an antispasmodic will make a difference. We have ordered PT/OT, but she has just started working with them. I had a angel discussion with her about the types of rehabilitation available and what she will likely need when her pain is reasonably controlled. She states she thinks it is unlikely she will be able to work 3 hours a day doing rehabilitation. She declines pain management referral - states she will never get another injection due to a poor reaction to one in the past. MRI L spine: Impression: 1. No evidence of central canal narrowing or neural foraminal stenosis. 2. Minimal disc bulging at L2/L3. 3. Surgical fusion changes at L4/L5 are grossly intact. (2) Diabetes mellitus Status: Chronic Response to Treatment: Stable Problem Text: d/c metformin in case a dye study is needed, ISS while in house. (3) Anxiety Status: Chronic Response to Treatment: Stable Problem Text: c/w home meds (4) Neuropathy Status: Chronic Response to Treatment: Stable Problem Text: c/w home meds (5) Neurogenic bladder Status: Chronic Response to Treatment: Stable Problem Text: c/w home meds (6) DVT prophylaxis Status: Acute Response to Treatment: Stable Problem Text: scd teds Plan/VTE VTE Prophylaxis Ordered?: Yes Plan/Urinary Catheter Reason for insertion/continuin: Acute obstruct/retention VS, I&O, 24H, Fishbone Vital Signs/I&O Vital Signs Date Time Temp Pulse Resp B/P (MAP) Pulse Ox O2 Delivery O2 Flow Rate FiO2 08/17/17 18:12 18 Room Air 08/17/17 14:00 97.1 81 133/79 (97) 93 I&O- Last 24 Hours up to 6 AM 08/18/17 06:00 Intake Total 1200 ml Output Total 1000 ml Balance 200 ml Laboratory Data 24H LABS Laboratory Tests 2 08/17/17 06:09: Immature Granulocyte % (Auto) 1.5H, White Blood Count 9.1, Red Blood Count 3.40L , Hemoglobin 12.1, Hematocrit 35.1L, Mean Corpuscular Volume 103.2H, Mean Corpuscular Hemoglobin 35.6H, Mean Corpuscular Hemoglobin Concent 34.5, Red Cell Distribution Width 11.9, Platelet Count 273, Neutrophils (%) (Auto) 44.4, Lymphocytes (%) (Auto) 35.7, Monocytes (%) (Auto) 11.2H, Eosinophils (%) (Auto) 6.4H, Basophils (%) (Auto) 0.8, Neutrophils # (Auto) 4.1, Lymphocytes # (Auto) 3.3, Monocytes # (Auto) 1.0H, Eosinophils # (Auto) 0.6H, Basophils # (Auto) 0.1 , Immature Granulocyte # (Auto) 0.1H, Nucleated Red Blood Cells % (auto) 0.0, Anion Gap 8, Glomerular Filtration Rate > 60.0, Blood Urea Nitrogen 15, Creatinine 0.69, Sodium Level 141, Potassium Level 4.2, Chloride Level 109H, Carbon Dioxide Level 24, Calcium Level 8.0L 08/17/17 12:03: Bedside Glucose (Misc Panel) 176H 08/17/17 17:20: Bedside Glucose (Misc Panel) 163H CBC/BMP Laboratory Tests 08/17/17 06:09 Red Blood Count 3.40 L, Mean Corpuscular Volume 103.2 H, Mean Corpuscular Hemoglobin 35.6 H, Mean Corpuscular Hemoglobin Concent 34.5, Red Cell Distribution Width 11.9, Neutrophils (%) (Auto) 44.4, Lymphocytes (%) (Auto) 35.7, Monocytes (%) (Auto) 11.2 H, Eosinophils (%) (Auto) 6.4 H, Basophils (%) ( Auto) 0.8, Neutrophils # (Auto) 4.1, Lymphocytes # (Auto) 3.3, Monocytes # (Auto ) 1.0 H, Eosinophils # (Auto) 0.6 H, Basophils # (Auto) 0.1, Calcium Level 8.0 L Ambrose Elias MD Aug 17, 2017 22:05
[2017-08-17] MEDS: CYCLOBENZAPRINE 10 MG TAB PO PRN (23:25)
[2017-08-18] MEDS: MORPHINE 2 MG/ML 1ML SYRINGE IV PRN ×7 (00:09→22:05)
[2017-08-18 06:00] VITALS: BP 115/67
[2017-08-18 06:29] LABS: BASO # 0.1 10^3/uL (0.0-0.2); BASO % 0.7 % (0.0-1.0); EOS # 0.7 10^3/uL (0.0-0.50); EOS % 7.6 % (0.0-3.0); IMMATURE GRANULOCYTE % 1.6 % (0-0); LYMPH # 3.2 10^3/uL (1.5-4.5); LYMPH % 36.4 % (24.0-44.0); MEAN CORPUSCULAR HEMOGLOBIN 35.6 pg (27.0-33.0); MEAN CORPUSCULAR HGB CONC 34.3 g/dl (32.0-36.5); MEAN CORPUSCULAR VOLUME 103.8 fl (80.0-96.0); MONO % 10.9 % (0.0-5.0); NEUTROPHILS # 3.7 10^3/uL (1.8-7.7); NEUTROPHILS % 42.8 % (36.0-66.0); PLATELET COUNT, AUTOMATED 283 10^3/uL (150-450); RED CELL DISTRIBUTION WIDTH 11.9 % (11.5-14.5); WHITE BLOOD COUNT 8.7 10^3/uL (4.0-10.0)
[2017-08-18 06:33] LABS: ADD MANUAL DIFFER NO; DIFF SLIDE NUMBER 36
[2017-08-18 06:50] LABS: ANION GAP 8 MEQ/L (8-16); BLOOD UREA NITROGEN 15 MG/DL (7-18); CALCIUM LEVEL 8.7 MG/DL (8.5-10.1); CARBON DIOXIDE LEVEL 26 MEQ/L (21-32); CHLORIDE LEVEL 108 MEQ/L (98-107); GLOMERULAR FILTRATION RATE > 60.0 (>51); GLUCOSE, FASTING 170 MG/DL (70-105); POTASSIUM SERUM 3.9 MEQ/L (3.5-5.1); SODIUM LEVEL 142 MEQ/L (136-145)
[2017-08-18] MEDS: HumaLOG INSULIN (NovoLOG) PER UNIT SC SCH ×4 (07:30→21:00)
[2017-08-18] MEDS: GABAPENTIN 400 MG CAP PO SCH ×4 (08:58→22:08)
[2017-08-18] MEDS: oxyBUTYnin 5 MG TAB PO SCH ×2 (08:58→22:07)
[2017-08-18] MEDS: MULTIVITAMINS/MINERALS THERAP 1 TAB PO SCH (08:58)
[2017-08-18] MEDS: busPIRone 10 MG TAB PO SCH ×2 (08:58→22:06)
[2017-08-18] MEDS: FEXOFENADINE 60 MG TAB PO SCH (08:59)
[2017-08-18] MEDS: CYCLOBENZAPRINE 10 MG TAB PO PRN ×2 (08:59→18:19)
[2017-08-18] MEDS: ATORVASTATIN 20 MG TAB PO SCH (08:59)
[2017-08-18] MEDS: ZONISAMIDE 100 MG CAP (ZONEGRAN) PO SCH ×2 (09:00→22:09)
[2017-08-18] MEDS: DICLOFENAC EPOLAMINE 1.3 % PATCH TOP SCH ×2 (09:00→22:11)
[2017-08-18] MEDS: ENOXAPARIN 40 MG/0.4 ML SYRINGE (J1650) SC SCH (09:00)
[2017-08-18] MEDS: CLOTRIMAZOLE 1% TOPICAL CREAM 30GM TOP SCH ×2 (09:01→22:12)
[2017-08-18 14:00] VITALS: BP 131/76
--- NOTE | 2017-08-18 16:55 | IPNPDOC ---
Subjective Date Seen The patient was seen on 08/18/17. Subjective Chief Complaint/HPI The patient is a 57-year-old female admitted with a reason for visit of Intractable Back Pain. Events since last encounter She reports that the muscle relaxer was helpful for her over the last day. She has been up and out of bed more spending a total of 2 hours out of bed thus far today. Nursing continues to use expressed some frustration with her perceived lack of willingness to participate in self-care. General: Reports: Normal Appetite Pulmonary: Denies: Cough Cardiovascular: Denies: Chest Pain, Palpitations Genitourinary: Denies: Dysuria Psych: Reports: Mood Normal Objective Physical Examination General Exam: Positive: Alert, No Acute Distress, Other (she is moving more comfortably around the bed today) Eye Exam: Positive: Conjunctiva & lids normal, Negative: Sclera icteric ENT Exam: Positive: Atraumatic Neck Exam: Negative: Lymphadenopathy Chest Exam: Positive: Clear to auscultation, Normal air movement, Negative: Rales, Rhonchi, Wheezing Heart Exam: Positive: Rate Normal, Normal S1, Normal S2 Abdomen Exam: Positive: Normal bowel sounds, Soft, Negative: Tenderness Extremity Exam: Negative: Edema Psych Exam: Positive: Anxiety Assessment /Plan Problems (1) Intractable back pain Status: Acute Response to Treatment: Stable Problem Text: Pt admitted due to intractable back pain causing an inability to care for herself. Pain control w morphine. The cyclobenzaprine seems to be helping a bit today, we'll continue this. We have ordered PT/OT, but she is making very slow progress thus far. We will continue the current regimen for now. MRI L spine: Impression: 1. No evidence of central canal narrowing or neural foraminal stenosis. 2. Minimal disc bulging at L2/L3. 3. Surgical fusion changes at L4/L5 are grossly intact. (2) Diabetes mellitus Status: Chronic Response to Treatment: Stable Problem Text: d/c metformin in case a dye study is needed, ISS while in house. (3) Neurogenic bladder Status: Chronic Response to Treatment: Stable Problem Text: She currently has a Arguello catheter in place. She self caths at home. I would like to set a goal of discontinuing the catheter tomorrow and going back to her regular regimen of intermittent self catheterization (4) Anxiety Status: Chronic Response to Treatment: Stable Problem Text: c/w home meds (5) Neuropathy Status: Chronic Response to Treatment: Stable Problem Text: c/w home meds Plan/VTE VTE Prophylaxis Ordered?: Yes Plan/Urinary Catheter Reason for insertion/continuin: Acute obstruct/retention VS, I&O, 24H, Fishbone Vital Signs/I&O Vital Signs Date Time Temp Pulse Resp B/P (MAP) Pulse Ox O2 Delivery O2 Flow Rate FiO2 08/18/17 15:53 18 96 08/18/17 14:00 98.0 82 131/76 (94) Room Air Laboratory Data 24H LABS Laboratory Tests 2 08/17/17 17:20: Bedside Glucose (Misc Panel) 163H 08/17/17 22:09: Bedside Glucose (Misc Panel) 204H 08/18/17 06:08: Immature Granulocyte % (Auto) 1.6H, White Blood Count 8.7, Red Blood Count 3.40L , Hemoglobin 12.1, Hematocrit 35.3L, Mean Corpuscular Volume 103.8H, Mean Corpuscular Hemoglobin 35.6H, Mean Corpuscular Hemoglobin Concent 34.3, Red Cell Distribution Width 11.9, Platelet Count 283, Neutrophils (%) (Auto) 42.8, Lymphocytes (%) (Auto) 36.4, Monocytes (%) (Auto) 10.9H, Eosinophils (%) (Auto) 7.6H, Basophils (%) (Auto) 0.7, Neutrophils # (Auto) 3.7, Lymphocytes # (Auto) 3.2, Monocytes # (Auto) 1.0H, Eosinophils # (Auto) 0.7H, Basophils # (Auto) 0.1 , Immature Granulocyte # (Auto) 0.1H, Nucleated Red Blood Cells % (auto) 0.0, Anion Gap 8, Glomerular Filtration Rate > 60.0, Blood Urea Nitrogen 15, Creatinine 0.70, Sodium Level 142, Potassium Level 3.9, Chloride Level 108H, Carbon Dioxide Level 26, Calcium Level 8.7 CBC/BMP Laboratory Tests 08/18/17 06:08 Red Blood Count 3.40 L, Mean Corpuscular Volume 103.8 H, Mean Corpuscular Hemoglobin 35.6 H, Mean Corpuscular Hemoglobin Concent 34.3, Red Cell Distribution Width 11.9, Neutrophils (%) (Auto) 42.8, Lymphocytes (%) (Auto) 36.4, Monocytes (%) (Auto) 10.9 H, Eosinophils (%) (Auto) 7.6 H, Basophils (%) ( Auto) 0.7, Neutrophils # (Auto) 3.7, Lymphocytes # (Auto) 3.2, Monocytes # (Auto ) 1.0 H, Eosinophils # (Auto) 0.7 H, Basophils # (Auto) 0.1, Calcium Level 8.7 Ambrose Elias MD Aug 18, 2017 16:55
[2017-08-18 22:00] VITALS: BP 118/66
[2017-08-18] MEDS: DULoxetine 30 MG CAP (CYMBALTA) PO SCH (22:06)
[2017-08-18] MEDS: NABUMETONE 500 MG TAB PO SCH (22:08)
[2017-08-18] MEDS: ASPIRIN 81 MG ENTERIC TAB PO SCH (22:09)
[2017-08-18] MEDS: AMITRIPTYLINE 25 MG TAB PO SCH (22:11)
[2017-08-18] MEDS: zolPIDEM TARTRATE 5 MG TAB PO PRN (22:42)
[2017-08-19] MEDS: MORPHINE 2 MG/ML 1ML SYRINGE IV PRN ×6 (02:23→19:27)
[2017-08-19 06:00] VITALS: BP 110/64
[2017-08-19 06:04] LABS: MEAN CORPUSCULAR HEMOGLOBIN 35.8 pg (27.0-33.0); MEAN CORPUSCULAR HGB CONC 34.3 g/dl (32.0-36.5); MEAN CORPUSCULAR VOLUME 104.5 fl (80.0-96.0); WHITE BLOOD COUNT 9.2 10^3/uL (4.0-10.0)
[2017-08-19 06:27] LABS: ANION GAP 8 MEQ/L (8-16); BLOOD UREA NITROGEN 16 MG/DL (7-18); CALCIUM LEVEL 8.2 MG/DL (8.5-10.1); CARBON DIOXIDE LEVEL 24 MEQ/L (21-32); CHLORIDE LEVEL 110 MEQ/L (98-107); CREATININE FOR GFR 0.77 MG/DL (0.55-1.02); GLOMERULAR FILTRATION RATE > 60.0 (>51); GLUCOSE, FASTING 170 MG/DL (70-105); POTASSIUM SERUM 4.1 MEQ/L (3.5-5.1); SODIUM LEVEL 142 MEQ/L (136-145)
[2017-08-19 07:20] VITALS: BP 159/78
[2017-08-19 07:30] VITALS: BP 159/78
[2017-08-19] MEDS: HumaLOG INSULIN (NovoLOG) PER UNIT SC SCH ×4 (07:39→21:23)
[2017-08-19 08:15] VITALS: BP 159/78
[2017-08-19] MEDS: ATORVASTATIN 20 MG TAB PO SCH (08:42)
[2017-08-19] MEDS: busPIRone 10 MG TAB PO SCH ×2 (08:42→21:20)
[2017-08-19] MEDS: MULTIVITAMINS/MINERALS THERAP 1 TAB PO SCH (08:42)
[2017-08-19] MEDS: oxyBUTYnin 5 MG TAB PO SCH ×2 (08:42→21:20)
[2017-08-19] MEDS: ZONISAMIDE 100 MG CAP (ZONEGRAN) PO SCH ×2 (08:42→21:20)
[2017-08-19] MEDS: GABAPENTIN 400 MG CAP PO SCH ×4 (08:43→21:20)
[2017-08-19] MEDS: FEXOFENADINE 60 MG TAB PO SCH (08:43)
[2017-08-19] MEDS: ENOXAPARIN 40 MG/0.4 ML SYRINGE (J1650) SC SCH (08:44)
[2017-08-19] MEDS: DICLOFENAC EPOLAMINE 1.3 % PATCH TOP SCH ×2 (08:46→21:22)
[2017-08-19] MEDS: CLOTRIMAZOLE 1% TOPICAL CREAM 30GM TOP SCH ×2 (08:46→21:22)
[2017-08-19 14:20] VITALS: BP 140/67
[2017-08-19] MEDS: CYCLOBENZAPRINE 10 MG TAB PO PRN (17:00)
[2017-08-19] MEDS: ANEXSIA, NORCO 7.5MG/325MG TABLET(HYDROCODONE/APAP) PO PRN ×2 (17:01→23:10)
--- NOTE | 2017-08-19 18:49 | CR ---
DATE OF CONSULTATION: 08/19/2017 CHIEF COMPLAINT: Low back pain. HISTORY OF PRESENT ILLNESS: Anastasia is a 57-year-old female with a long history of chronic low back pain. Surgical history of three lumbar surgeries, one in 1995, 1996, and 2015. Has been following with primary care over the years and has been using four to five hydrocodone 5-25 per day for chronic pain. She reports a fall about 1 week ago and landed on her back. Over the past week the pain was so bad that she cannot take care of herself Reports that pain radiates into both legs with associated numbness and tingling. No recent fever or illness. Denies new onset of urinary incontinence or bowel incontinence. Rating pain level as a 5/10. The patient had hydrocodone 5-325, one tablet approximately 1/2 hour prior to my visit today. She has had interventional injections for pain control in her back on several occasions . Last injection being done approximately 2015. Reports only minimal improvement in pain for a short period of time. PAST MEDICAL HISTORY: Diabetes mellitus type 2. Chronic low back pain Anxiety. Insomnia. Depression. Neurogenic bladder. PAST SURGICAL HISTORY: Lumbar fusion. Left hip open reduction and internal fixation. FAMILY HISTORY: No significant family history. SOCIAL HISTORY: Patient is not a current smoker. She does not drink alcohol. She denies illicit drug use. The patient lives alone. Has a disabled fiancee. REVIEW OF SYSTEMS: 11-point review of systems is positive only for acute on chronic low back pain as described in the HPI. PHYSICAL EXAMINATION: Awake, alert, pleasant. Good eye contact. Vital signs: 98.2, 103, 16, BP 140/67, O2 sats 94% on room air. Cardiac: S1, S2 normal rate and rhythm. Neuromuscular: Muscle strength over the lower extremities is 2+/4. Reporting normal sensation to light touch lower extremities. No redness or swelling noted. Inspection of spine: Marked pain with palpation over sacroiliac joint bilaterally, right greater than left. She has a dressing covering a buttocks decubitus. DIAGNOSTIC DATA: MRI of the lumbar spine 08/15/2017- reviewed. ASSESSMENT: 1. Acute exacerbation of chronic low back pain. 2. Bilateral sacroiliac joint pain, right greater than left. PLAN: Will schedule tomorrow for sacroiliac joint steroid injection versus trigger point injection. Spoke with Dr. Guzman regarding her situation. Orders for holding Lovenox after midnight tonight were ordered. Nothing by mouth (npo) after breakfast on 08/20. At the pain clinic by 1400 on 08/20. Thank you for allowing us to participate in the care of your patient. Should you have any questions or concerns please do not hesitate to contact us. HORACE
[2017-08-19] MEDS: ASPIRIN 81 MG ENTERIC TAB PO SCH (21:20)
[2017-08-19] MEDS: DULoxetine 30 MG CAP (CYMBALTA) PO SCH (21:20)
[2017-08-19] MEDS: AMITRIPTYLINE 25 MG TAB PO SCH (21:20)
[2017-08-19] MEDS: zolPIDEM TARTRATE 5 MG TAB PO PRN (21:33)
[2017-08-19] MEDS: NABUMETONE 500 MG TAB PO SCH (21:34)
[2017-08-19 22:00] VITALS: BP 132/69
[2017-08-20] MEDS: MORPHINE 2 MG/ML 1ML SYRINGE IV PRN ×4 (00:26→20:18)
--- NOTE | 2017-08-20 03:04 | IPNPDOC ---
Subjective Date Seen The patient was seen on 08/19/17. Subjective Chief Complaint/HPI The patient is a 57-year-old female admitted with a reason for visit of Intractable Back Pain. Events since last encounter Patient continues to complain of debilitating back pain. States current morphine is insufficient, as it wears off too quickly. She has barely been out of bed to chair today. Constitutional: Reports: Malaise, Denies: Chills, Fever Pulmonary: Denies: Dyspnea, Cough Cardiovascular: Denies: Chest Pain, Palpitations Gastrointestinal: Denies: Nausea, Vomiting, Abdominal Pain, Diarrhea, Constipation Genitourinary: Denies: Incontinence Musculoskeletal: Reports: Back Pain, Leg Pain Objective Physical Examination General Exam: Positive: Alert, Mild Distress (related to her back pain or thinking about her back pain while lying still in bed) Eye Exam: Positive: Conjunctiva & lids normal, Negative: Sclera icteric ENT Exam: Positive: Atraumatic Neck Exam: Negative: Lymphadenopathy Chest Exam: Positive: Clear to auscultation, Normal air movement, Diminished ( possibly related to obesity-hypoventilation syndrome), Negative: Rales, Rhonchi, Wheezing Heart Exam: Positive: Rate Normal, Normal S1, Normal S2 Abdomen Exam: Positive: Normal bowel sounds, Soft, Negative: Tenderness Extremity Exam: Negative: Edema Psych Exam: Positive: Anxiety Assessment /Plan Problems (1) Intractable back pain Status: Acute Response to Treatment: Stable Problem Text: 08/19 -- I spaced out her morphine to Q 4 hours, and restarted her home narcotic at her home dosing. I ordered a lidoderm patch. Discussed with patient that I thought a pain management referral might be valuable. She voiced concern about injections. I asked her to hear them out and consider if they might have anything to offer, including medication recommendations. Our current plan is not managing her pain. Pt admitted due to intractable back pain causing an inability to care for herself. Pain control w morphine; I added cyclobenzaprine today to see if an antispasmodic will make a difference. We have ordered PT/OT, but she has just started working with them. I had a angel discussion with her about the types of rehabilitation available and what she will likely need when her pain is reasonably controlled. She states she thinks it is unlikely she will be able to work 3 hours a day doing rehabilitation. She declines pain management referral - states she will never get another injection due to a poor reaction to one in the past. MRI L spine: Impression: 1. No evidence of central canal narrowing or neural foraminal stenosis. 2. Minimal disc bulging at L2/L3. 3. Surgical fusion changes at L4/L5 are grossly intact. (2) Diabetes mellitus Status: Chronic Response to Treatment: Stable Problem Text: d/c metformin in case a dye study is needed, ISS while in house. (3) Anxiety Status: Chronic Response to Treatment: Stable Problem Text: c/w home meds (4) Neuropathy Status: Chronic Response to Treatment: Stable Problem Text: c/w home meds (5) Neurogenic bladder Status: Chronic Response to Treatment: Stable Problem Text: c/w home meds (6) DVT prophylaxis Status: Acute Response to Treatment: Stable Problem Text: scd teds Plan/VTE VTE Prophylaxis Ordered?: Yes Plan/Urinary Catheter Reason for insertion/continuin: Acute obstruct/retention VS, I&O, 24H, Fishbone Vital Signs/I&O Vital Signs Date Time Temp Pulse Resp B/P (MAP) Pulse Ox O2 Delivery O2 Flow Rate FiO2 08/20/17 00:36 18 Room Air 08/19/17 22:00 97.4 83 132/69 (90) 95 Laboratory Data 24H LABS Laboratory Tests 2 08/19/17 05:53: Anion Gap 8, Glomerular Filtration Rate > 60.0, Blood Urea Nitrogen 16, Creatinine 0.77, Sodium Level 142, Potassium Level 4.1, Chloride Level 110H, Carbon Dioxide Level 24, Calcium Level 8.2L 08/19/17 07:22: Bedside Glucose (Misc Panel) 255H 08/19/17 11:35: Bedside Glucose (Misc Panel) 142H 08/19/17 16:36: Bedside Glucose (Misc Panel) 174H 08/19/17 19:40: Bedside Glucose (Misc Panel) 295H CBC/BMP Laboratory Tests 08/19/17 05:53 Red Blood Count 3.32 L, Mean Corpuscular Volume 104.5 H, Mean Corpuscular Hemoglobin 35.8 H, Mean Corpuscular Hemoglobin Concent 34.3, Red Cell Distribution Width 12.0, Calcium Level 8.2 L GABI BISHOP DO Aug 20, 2017 03:04
[2017-08-20] MEDS: ANEXSIA, NORCO 7.5MG/325MG TABLET(HYDROCODONE/APAP) PO PRN ×2 (05:35→23:33)
[2017-08-20 06:00] VITALS: BP 128/76
[2017-08-20] MEDS: ZONISAMIDE 100 MG CAP (ZONEGRAN) PO SCH ×2 (08:26→20:15)
[2017-08-20] MEDS: FEXOFENADINE 60 MG TAB PO SCH (08:26)
[2017-08-20] MEDS: GABAPENTIN 400 MG CAP PO SCH ×4 (08:26→20:15)
[2017-08-20] MEDS: busPIRone 10 MG TAB PO SCH ×2 (08:26→20:15)
[2017-08-20] MEDS: MULTIVITAMINS/MINERALS THERAP 1 TAB PO SCH (08:26)
[2017-08-20] MEDS: CYCLOBENZAPRINE 10 MG TAB PO PRN (08:27)
[2017-08-20] MEDS: CLOTRIMAZOLE 1% TOPICAL CREAM 30GM TOP SCH ×2 (08:27→20:17)
[2017-08-20] MEDS: oxyBUTYnin 5 MG TAB PO SCH ×2 (08:27→20:15)
[2017-08-20] MEDS: ATORVASTATIN 20 MG TAB PO SCH (08:27)
[2017-08-20] MEDS: **NOTE PATIENT COMMENT** MISC XX SCH (08:27)
[2017-08-20] MEDS: DICLOFENAC EPOLAMINE 1.3 % PATCH TOP SCH ×2 (08:27→20:18)
[2017-08-20 08:31] LABS: ANION GAP 7 MEQ/L (8-16); BLOOD UREA NITROGEN 17 MG/DL (7-18); CARBON DIOXIDE LEVEL 28 MEQ/L (21-32); CHLORIDE LEVEL 106 MEQ/L (98-107); CREATININE FOR GFR 0.82 MG/DL (0.55-1.02); GLOMERULAR FILTRATION RATE > 60.0 (>51); GLUCOSE, FASTING 145 MG/DL (70-105); POTASSIUM SERUM 4.3 MEQ/L (3.5-5.1); SODIUM LEVEL 141 MEQ/L (136-145)
[2017-08-20] MEDS: HumaLOG INSULIN (NovoLOG) PER UNIT SC SCH ×4 (08:33→20:22)
[2017-08-20] MEDS ORDERED: diazePAM 5 MG TAB As Ordered ONE (15:08)
[2017-08-20] MEDS ORDERED: oxyCODONE 5MG TAB As Ordered ONE (15:08)
[2017-08-20] MEDS ORDERED: TRIAMCINOLONE ACETONIDE SUSP 40 MG/ML VIAL (J3301) As Ordered ONE (16:02)
[2017-08-20] MEDS ORDERED: ISOVUE-M 300 61% 15ML VIAL (Q9967) As Ordered ONE (16:03)
[2017-08-20] MEDS ORDERED: LIDOCAINE 1% SDV INJ 30 ML VIAL As Ordered ONE (16:03)
[2017-08-20] MEDS ORDERED: BUPIVACAINE HCL 0.25% 30 ML VIAL As Ordered ONE (16:03)
[2017-08-20 18:00] VITALS: BP 129/73
[2017-08-20] MEDS: AMITRIPTYLINE 25 MG TAB PO SCH (20:14)
[2017-08-20] MEDS: ASPIRIN 81 MG ENTERIC TAB PO SCH (20:15)
[2017-08-20] MEDS: DULoxetine 30 MG CAP (CYMBALTA) PO SCH (20:15)
[2017-08-20] MEDS: zolPIDEM TARTRATE 5 MG TAB PO PRN (20:15)
[2017-08-20] MEDS: LIDOCAINE 5% (LIDODERM) PATCH TD SCH (20:27)
[2017-08-20] MEDS: NABUMETONE 500 MG TAB PO SCH (20:27)
[2017-08-20 22:00] VITALS: BP 124/68
--- NOTE | 2017-08-21 00:41 | IPNPDOC ---
Subjective Date Seen The patient was seen on 08/20/17. Subjective Chief Complaint/HPI The patient is a 57-year-old female admitted with a reason for visit of Intractable Back Pain. Events since last encounter Patient seen after SI joint injection this afternoon. She reports that her pain , 02/18, is the best it has been while she has been admitted. Nursing still reports very limited mobility. Constitutional: Denies: Chills, Fever, Malaise Cardiovascular: Denies: Chest Pain, Palpitations Gastrointestinal: Denies: Nausea, Vomiting, Diarrhea, Constipation Genitourinary: Reports: Other Symptoms (neurogenic bladder, chronic) Objective Physical Examination General Exam: Positive: Alert Eye Exam: Positive: Conjunctiva & lids normal, Negative: Sclera icteric ENT Exam: Positive: Atraumatic Neck Exam: Negative: Lymphadenopathy Chest Exam: Positive: Clear to auscultation, Normal air movement, Diminished ( possibly related to obesity-hypoventilation syndrome), Negative: Rales, Rhonchi, Wheezing Heart Exam: Positive: Rate Normal, Normal S1, Normal S2 Abdomen Exam: Positive: Normal bowel sounds, Soft, Negative: Tenderness Extremity Exam: Negative: Edema Psych Exam: Positive: Anxiety Assessment /Plan Problems (1) Intractable back pain Status: Acute Response to Treatment: Stable Problem Text: 08/20 -- Patient reports relief from pain with SI joint injection. I anticipate that this should allow her to work more with PT tomorrow, and decrease her IV narcotic. 08/19 -- I spaced out her morphine to Q 4 hours, and restarted her home narcotic at her home dosing. I ordered a lidoderm patch. Discussed with patient that I thought a pain management referral might be valuable. She voiced concern about injections. I asked her to hear them out and consider if they might have anything to offer, including medication recommendations. Our current plan is not managing her pain. Pt admitted due to intractable back pain causing an inability to care for herself. Pain control w morphine; I added cyclobenzaprine today to see if an antispasmodic will make a difference. We have ordered PT/OT, but she has just started working with them. I had a angel discussion with her about the types of rehabilitation available and what she will likely need when her pain is reasonably controlled. She states she thinks it is unlikely she will be able to work 3 hours a day doing rehabilitation. She declines pain management referral - states she will never get another injection due to a poor reaction to one in the past. MRI L spine: Impression: 1. No evidence of central canal narrowing or neural foraminal stenosis. 2. Minimal disc bulging at L2/L3. 3. Surgical fusion changes at L4/L5 are grossly intact. (2) Diabetes mellitus Status: Chronic Response to Treatment: Stable Problem Text: d/c metformin in case a dye study is needed, ISS while in house. (3) Anxiety Status: Chronic Response to Treatment: Stable Problem Text: c/w home meds (4) Neuropathy Status: Chronic Response to Treatment: Stable Problem Text: c/w home meds (5) Neurogenic bladder Status: Chronic Response to Treatment: Stable Problem Text: c/w home meds (6) DVT prophylaxis Status: Acute Response to Treatment: Stable Problem Text: scd teds Plan/VTE VTE Prophylaxis Ordered?: Yes Plan/Urinary Catheter Reason for insertion/continuin: Acute obstruct/retention VS, I&O, 24H, [facility] Vital Signs/I&O Vital Signs Date Time Temp Pulse Resp B/P (MAP) Pulse Ox O2 Delivery O2 Flow Rate FiO2 08/21/17 00:03 18 Room Air 08/20/17 18:00 97.3 82 129/73 (91) 93 Laboratory Data 24H LABS Laboratory Tests 2 08/20/17 07:47: Anion Gap 7L, Glomerular Filtration Rate > 60.0, Blood Urea Nitrogen 17, Creatinine 0.82, Sodium Level 141, Potassium Level 4.3, Chloride Level 106, Carbon Dioxide Level 28, Calcium Level 9.0 08/20/17 11:28: Bedside Glucose (Misc Panel) 195H 08/20/17 15:44: Bedside Glucose (Misc Panel) 139H CBC/BMP Laboratory Tests 08/20/17 07:47 Calcium Level 9.0 GABI BISHOP DO Aug 21, 2017 00:41
[2017-08-21] MEDS: MORPHINE 2 MG/ML 1ML SYRINGE IV PRN ×2 (03:08→08:32)
[2017-08-21 06:00] VITALS: BP 112/60
[2017-08-21] MEDS: ANEXSIA, NORCO 7.5MG/325MG TABLET(HYDROCODONE/APAP) PO PRN (06:29)
[2017-08-21 08:04] LABS: ANION GAP 8 MEQ/L (8-16); BLOOD UREA NITROGEN 17 MG/DL (7-18); CALCIUM LEVEL 8.6 MG/DL (8.5-10.1); CARBON DIOXIDE LEVEL 24 MEQ/L (21-32); CHLORIDE LEVEL 108 MEQ/L (98-107); CREATININE FOR GFR 0.85 MG/DL (0.55-1.02); GLOMERULAR FILTRATION RATE > 60.0 (>51); GLUCOSE, FASTING 288 MG/DL (70-105); POTASSIUM SERUM 3.9 MEQ/L (3.5-5.1); SODIUM LEVEL 140 MEQ/L (136-145)
[2017-08-21] MEDS: HumaLOG INSULIN (NovoLOG) PER UNIT SC SCH ×4 (08:33→21:45)
[2017-08-21] MEDS: ENOXAPARIN 40 MG/0.4 ML SYRINGE (J1650) SC SCH (08:33)
[2017-08-21] MEDS: MULTIVITAMINS/MINERALS THERAP 1 TAB PO SCH (08:34)
[2017-08-21] MEDS: oxyBUTYnin 5 MG TAB PO SCH ×2 (08:34→21:48)
[2017-08-21] MEDS: busPIRone 10 MG TAB PO SCH ×2 (08:34→21:47)
[2017-08-21] MEDS: ZONISAMIDE 100 MG CAP (ZONEGRAN) PO SCH ×2 (08:34→21:47)
[2017-08-21] MEDS: GABAPENTIN 400 MG CAP PO SCH ×4 (08:34→21:47)
[2017-08-21] MEDS: FEXOFENADINE 60 MG TAB PO SCH (08:34)
[2017-08-21] MEDS: ATORVASTATIN 20 MG TAB PO SCH (08:34)
[2017-08-21] MEDS: CLOTRIMAZOLE 1% TOPICAL CREAM 30GM TOP SCH (08:35)
[2017-08-21] MEDS: **NOTE PATIENT COMMENT** MISC XX SCH (08:35)
--- NOTE | 2017-08-21 09:42 | REP ---
SI joint series: Six views. History: Bilateral injection for pain. 30 seconds of fluoroscopy time is reported. Findings: A sequence of six last image hold fluoroscopic spot radiographs of the SI joints document needle position and contrast injection associated with SI joint injection procedure. Signed by Aristides Clarke MD 08/21/2017 02:10 P
[2017-08-21] MEDS: CYCLOBENZAPRINE 10 MG TAB PO PRN ×2 (11:00→21:46)
[2017-08-21] MEDS: DICLOFENAC EPOLAMINE 1.3 % PATCH TOP SCH ×2 (12:43→21:48)
[2017-08-21] MEDS: NORCO, ANEXSIA 5/325MG TABLET (HYDROcodone/ACETAMINOPHEN) PO PRN ×2 (12:44→18:57)
[2017-08-21 14:00] VITALS: BP 151/67
[2017-08-21] MEDS: DULoxetine 30 MG CAP (CYMBALTA) PO SCH (21:46)
[2017-08-21] MEDS: NYSTATIN 100,000 UNITS/GM TOPICAL PWD 15 GM TOP SCH (21:46)
[2017-08-21] MEDS: NABUMETONE 500 MG TAB PO SCH (21:47)
[2017-08-21] MEDS: ASPIRIN 81 MG ENTERIC TAB PO SCH (21:47)
[2017-08-21] MEDS: AMITRIPTYLINE 25 MG TAB PO SCH (21:48)
[2017-08-21] MEDS: LIDOCAINE 5% (LIDODERM) PATCH TD SCH (21:48)
[2017-08-21] MEDS: MIRALAX *UNIT DOSE* 17GM PACKET PO PRN (23:27)
[2017-08-21] MEDS: DOCUSATE SODIUM 100 MG CAP PO PRN (23:27)
--- NOTE | 2017-08-22 02:48 | IPNPDOC ---
Subjective Date Seen The patient was seen on 08/22/17. Subjective Chief Complaint/HPI The patient is a 57-year-old female admitted with a reason for visit of Intractable Back Pain. Events since last encounter She feels that her pain is not as well controlled as it was immediately post- procedure yesterday. She has been out of bed for brief periods today. She states that she feels discouraged. Patient lost her IV, but we had been planning to DC IV morphine today, anyway. Constitutional: Denies: Chills, Fever Skin: Denies: Rash Pulmonary: Denies: Dyspnea, Cough Cardiovascular: Denies: Chest Pain Gastrointestinal: Denies: Nausea, Vomiting, Diarrhea, Constipation Genitourinary: Denies: Dysuria Musculoskeletal: Reports: Back Pain, Leg Pain Objective Physical Examination General Exam: Positive: Alert, No Acute Distress Eye Exam: Positive: Conjunctiva & lids normal, Negative: Sclera icteric ENT Exam: Positive: Atraumatic Neck Exam: Negative: Lymphadenopathy Chest Exam: Positive: Clear to auscultation, Normal air movement, Diminished ( possibly related to obesity-hypoventilation syndrome), Negative: Rales, Rhonchi, Wheezing Heart Exam: Positive: Rate Normal, Normal S1, Normal S2 Abdomen Exam: Positive: Normal bowel sounds, Soft, Negative: Tenderness Extremity Exam: Negative: Edema Assessment /Plan Problems (1) Intractable back pain Status: Acute Response to Treatment: Stable Problem Text: 08/21 -- DCed morphine and increased dose of home hydrocodone- acetaminophen. Encouraged her to continue working with PT. 08/20 -- Patient reports relief from pain with SI joint injection. I anticipate that this should allow her to work more with PT tomorrow, and decrease her IV narcotic. 08/19 -- I spaced out her morphine to Q 4 hours, and restarted her home narcotic at her home dosing. I ordered a lidoderm patch. Discussed with patient that I thought a pain management referral might be valuable. She voiced concern about injections. I asked her to hear them out and consider if they might have anything to offer, including medication recommendations. Our current plan is not managing her pain. Pt admitted due to intractable back pain causing an inability to care for herself. Pain control w morphine; I added cyclobenzaprine today to see if an antispasmodic will make a difference. We have ordered PT/OT, but she has just started working with them. I had a angel discussion with her about the types of rehabilitation available and what she will likely need when her pain is reasonably controlled. She states she thinks it is unlikely she will be able to work 3 hours a day doing rehabilitation. She declines pain management referral - states she will never get another injection due to a poor reaction to one in the past. MRI L spine: Impression: 1. No evidence of central canal narrowing or neural foraminal stenosis. 2. Minimal disc bulging at L2/L3. 3. Surgical fusion changes at L4/L5 are grossly intact. (2) Diabetes mellitus Status: Chronic Response to Treatment: Stable Problem Text: 08/21 -- Poorly controlled. I would like to restart Victoza, but it is not available in house. Will start long-acting insulin while in hospital only. d/c metformin in case a dye study is needed, ISS while in house. (3) Anxiety Status: Chronic Response to Treatment: Stable Problem Text: c/w home meds (4) Neuropathy Status: Chronic Response to Treatment: Stable Problem Text: c/w home meds (5) Neurogenic bladder Status: Chronic Response to Treatment: Stable Problem Text: c/w home meds (6) DVT prophylaxis Status: Acute Response to Treatment: Stable Problem Text: scd teds Plan/VTE VTE Prophylaxis Ordered?: Yes Plan/Urinary Catheter Reason for insertion/continuin: Acute obstruct/retention VS, I&O, 24H, Fishbone Vital Signs/I&O Vital Signs Date Time Temp Pulse Resp B/P (MAP) Pulse Ox O2 Delivery O2 Flow Rate FiO2 08/21/17 19:27 20 08/21/17 14:00 97.1 90 151/67 (95) 95 Room Air Laboratory Data 24H LABS Laboratory Tests 2 08/21/17 07:01: Anion Gap 8, Glomerular Filtration Rate > 60.0, Blood Urea Nitrogen 17, Creatinine 0.85, Sodium Level 140, Potassium Level 3.9, Chloride Level 108H, Carbon Dioxide Level 24, Calcium Level 8.6 08/21/17 12:29: Bedside Glucose (Misc Panel) 212H 08/21/17 17:21: Bedside Glucose (Misc Panel) 245H 08/21/17 20:48: Bedside Glucose (Misc Panel) 332H CBC/BMP Laboratory Tests 08/21/17 07:01 Calcium Level 8.6 GABI BISHOP DO Aug 22, 2017 02:48
[2017-08-22] MEDS: NORCO, ANEXSIA 5/325MG TABLET (HYDROcodone/ACETAMINOPHEN) PO PRN ×2 (05:33→11:34)
[2017-08-22 06:00] VITALS: BP 118/60
[2017-08-22 07:01] LABS: MEAN CORPUSCULAR HEMOGLOBIN 35.5 pg (27.0-33.0); MEAN CORPUSCULAR HGB CONC 34.3 g/dl (32.0-36.5); MEAN CORPUSCULAR VOLUME 103.4 fl (80.0-96.0); RED CELL DISTRIBUTION WIDTH 12.1 % (11.5-14.5); WHITE BLOOD COUNT 9.6 10^3/uL (4.0-10.0)
[2017-08-22 07:23] LABS: ANION GAP 6 MEQ/L (8-16); BLOOD UREA NITROGEN 18 MG/DL (7-18); CALCIUM LEVEL 8.1 MG/DL (8.5-10.1); CARBON DIOXIDE LEVEL 25 MEQ/L (21-32); CHLORIDE LEVEL 112 MEQ/L (98-107); CREATININE FOR GFR 0.82 MG/DL (0.55-1.02); GLOMERULAR FILTRATION RATE > 60.0 (>51); GLUCOSE, FASTING 198 MG/DL (70-105); POTASSIUM SERUM 4.1 MEQ/L (3.5-5.1); SODIUM LEVEL 143 MEQ/L (136-145)
[2017-08-22] MEDS: ENOXAPARIN 40 MG/0.4 ML SYRINGE (J1650) SC SCH (08:37)
[2017-08-22] MEDS: NYSTATIN 100,000 UNITS/GM TOPICAL PWD 15 GM TOP SCH ×2 (08:37→21:37)
[2017-08-22] MEDS: GABAPENTIN 400 MG CAP PO SCH ×4 (08:38→21:35)
[2017-08-22] MEDS: oxyBUTYnin 5 MG TAB PO SCH ×2 (08:38→21:35)
[2017-08-22] MEDS: MULTIVITAMINS/MINERALS THERAP 1 TAB PO SCH (08:38)
[2017-08-22] MEDS: ATORVASTATIN 20 MG TAB PO SCH (08:38)
[2017-08-22] MEDS: FEXOFENADINE 60 MG TAB PO SCH (08:38)
[2017-08-22] MEDS: busPIRone 10 MG TAB PO SCH ×2 (08:38→21:34)
[2017-08-22] MEDS: ZONISAMIDE 100 MG CAP (ZONEGRAN) PO SCH ×2 (08:38→21:35)
[2017-08-22] MEDS: CYCLOBENZAPRINE 10 MG TAB PO PRN ×2 (08:38→18:07)
[2017-08-22] MEDS: HumaLOG INSULIN (NovoLOG) PER UNIT SC SCH ×4 (08:39→21:36)
[2017-08-22] MEDS: DICLOFENAC EPOLAMINE 1.3 % PATCH TOP SCH ×2 (08:39→21:37)
[2017-08-22] MEDS: **NOTE PATIENT COMMENT** MISC XX SCH (08:40)
[2017-08-22] MEDS ORDERED: LEVEMIR (INSULIN DETEMIR) 1 UNITS/0.01ML SC SCH (09:00)
[2017-08-22 14:00] VITALS: BP 117/65
[2017-08-22] MEDS ORDERED: PERCOCET 5MG/325MG TAB PO PRN (15:00)
[2017-08-22] MEDS: PERCOCET 5MG/325MG TAB PO PRN ×2 (16:24→21:09)
[2017-08-22] MEDS: ANALGESIC BALM CRM 120 GM TOP SCH ×2 (16:24→21:00)
[2017-08-22] MEDS: ASPIRIN 81 MG ENTERIC TAB PO SCH (21:34)
[2017-08-22] MEDS: AMITRIPTYLINE 25 MG TAB PO SCH (21:34)
[2017-08-22] MEDS: DULoxetine 30 MG CAP (CYMBALTA) PO SCH (21:35)
[2017-08-22] MEDS: NABUMETONE 500 MG TAB PO SCH (21:35)
[2017-08-22] MEDS: LIDOCAINE 5% (LIDODERM) PATCH TD SCH (21:37)
[2017-08-22 22:00] VITALS: BP 118/60
--- NOTE | 2017-08-23 01:13 | IPNPDOC ---
Subjective Date Seen The patient was seen on 08/22/17. Subjective Chief Complaint/HPI The patient is a 57-year-old female admitted with a reason for visit of Intractable Back Pain. Events since last encounter Patient complains of persistent back pain. States she has been somewhat more active today, and has been working with PT. She states that she wants to go home, but understands that she might need to go to rehab. Constitutional: Denies: Chills, Fever Pulmonary: Denies: Dyspnea, Cough Cardiovascular: Denies: Chest Pain Gastrointestinal: Denies: Nausea, Vomiting, Diarrhea, Constipation Musculoskeletal: Reports: Back Pain Objective Physical Examination General Exam: Positive: Alert, No Acute Distress Eye Exam: Positive: Conjunctiva & lids normal, Negative: Sclera icteric ENT Exam: Positive: Atraumatic Neck Exam: Negative: Lymphadenopathy Chest Exam: Positive: Clear to auscultation, Normal air movement, Diminished ( possibly related to obesity-hypoventilation syndrome), Negative: Rales, Rhonchi, Wheezing Heart Exam: Positive: Rate Normal, Normal S1, Normal S2 Abdomen Exam: Positive: Normal bowel sounds, Soft, Negative: Tenderness Extremity Exam: Negative: Edema Assessment /Plan Problems (1) Intractable back pain Status: Acute Response to Treatment: Stable Problem Text: 08/22 -- Changed from hydrocodone-acetaminophen to oxycodone- acetaminophen. Added Bengay. 08/21 -- DCed morphine and increased dose of home hydrocodone-acetaminophen. Encouraged her to continue working with PT. 08/20 -- Patient reports relief from pain with SI joint injection. I anticipate that this should allow her to work more with PT tomorrow, and decrease her IV narcotic. 08/19 -- I spaced out her morphine to Q 4 hours, and restarted her home narcotic at her home dosing. I ordered a Lidoderm patch. Discussed with patient that I thought a pain management referral might be valuable. She voiced concern about injections. I asked her to hear them out and consider if they might have anything to offer, including medication recommendations. Our current plan is not managing her pain. Pt admitted due to intractable back pain causing an inability to care for herself. Pain control w morphine; I added cyclobenzaprine today to see if an antispasmodic will make a difference. We have ordered PT/OT, but she has just started working with them. I had a angel discussion with her about the types of rehabilitation available and what she will likely need when her pain is reasonably controlled. She states she thinks it is unlikely she will be able to work 3 hours a day doing rehabilitation. She declines pain management referral - states she will never get another injection due to a poor reaction to one in the past. MRI L spine: Impression: 1. No evidence of central canal narrowing or neural foraminal stenosis. 2. Minimal disc bulging at L2/L3. 3. Surgical fusion changes at L4/L5 are grossly intact. (2) Diabetes mellitus Status: Chronic Response to Treatment: Stable Problem Text: 08/22 -- Increased Levemir. 08/21 -- Poorly controlled. I would like to restart Victoza, but it is not available in house. Will start long-acting insulin while in hospital only. d/c metformin in case a dye study is needed, ISS while in house. (3) Anxiety Status: Chronic Response to Treatment: Stable Problem Text: c/w home meds (4) Neuropathy Status: Chronic Response to Treatment: Stable Problem Text: c/w home meds (5) Neurogenic bladder Status: Chronic Response to Treatment: Stable Problem Text: 08/22 -- Discussed yesterday removing Arguello, and she declined. Today I ordered it removed, for fear that she might develop a UTI. At baseline , she self-caths. c/w home meds (6) DVT prophylaxis Status: Acute Response to Treatment: Stable Problem Text: scd teds Plan/VTE VTE Prophylaxis Ordered?: Yes Plan/Urinary Catheter Reason for insertion/continuin: Acute obstruct/retention VS, I&O, [facility] Vital Signs/I&O Vital Signs Date Time Temp Pulse Resp B/P (MAP) Pulse Ox O2 Delivery O2 Flow Rate FiO2 08/22/17 22:00 98.2 76 18 118/60 (79) 96 Room Air Laboratory Data 24H LABS Laboratory Tests 2 08/22/17 06:50: Nucleated Red Blood Cells % (auto) 0.0, Anion Gap 6L, Glomerular Filtration Rate > 60.0, Blood Urea Nitrogen 18, Creatinine 0.82, Sodium Level 143, Potassium Level 4.1, Chloride Level 112H, Carbon Dioxide Level 25, Calcium Level 8.1L 08/22/17 12:07: Bedside Glucose (Misc Panel) 175H 08/22/17 17:00: Bedside Glucose (Misc Panel) 291H 08/22/17 20:24: Bedside Glucose (Misc Panel) 395H CBC/BMP Laboratory Tests 08/22/17 06:50 Red Blood Count 3.21 L, Mean Corpuscular Volume 103.4 H, Mean Corpuscular Hemoglobin 35.5 H, Mean Corpuscular Hemoglobin Concent 34.3, Red Cell Distribution Width 12.1, Calcium Level 8.1 L GABI BISHOP DO Aug 23, 2017 01:13
[2017-08-23] MEDS: PERCOCET 5MG/325MG TAB PO PRN ×5 (01:59→21:49)
[2017-08-23 06:00] VITALS: BP 102/60
[2017-08-23] MEDS: ENOXAPARIN 40 MG/0.4 ML SYRINGE (J1650) SC SCH (08:13)
[2017-08-23] MEDS: ZONISAMIDE 100 MG CAP (ZONEGRAN) PO SCH ×2 (08:14→20:20)
[2017-08-23] MEDS: CYCLOBENZAPRINE 10 MG TAB PO PRN ×2 (08:14→21:46)
[2017-08-23] MEDS: HumaLOG INSULIN (NovoLOG) PER UNIT SC SCH ×4 (08:14→20:21)
[2017-08-23] MEDS: busPIRone 10 MG TAB PO SCH ×2 (08:15→20:20)
[2017-08-23] MEDS: FEXOFENADINE 60 MG TAB PO SCH (08:15)
[2017-08-23] MEDS: oxyBUTYnin 5 MG TAB PO SCH ×2 (08:15→20:22)
[2017-08-23] MEDS: MULTIVITAMINS/MINERALS THERAP 1 TAB PO SCH (08:15)
[2017-08-23] MEDS: NYSTATIN 100,000 UNITS/GM TOPICAL PWD 15 GM TOP SCH ×2 (08:15→20:21)
[2017-08-23] MEDS: ANALGESIC BALM CRM 120 GM TOP SCH ×4 (08:15→20:21)
[2017-08-23] MEDS: ATORVASTATIN 20 MG TAB PO SCH (08:15)
[2017-08-23] MEDS: **NOTE PATIENT COMMENT** MISC XX SCH (08:15)
[2017-08-23] MEDS: GABAPENTIN 400 MG CAP PO SCH ×4 (08:15→20:20)
[2017-08-23] MEDS: DICLOFENAC EPOLAMINE 1.3 % PATCH TOP SCH ×2 (08:16→20:19)
[2017-08-23] MEDS ORDERED: LEVEMIR (INSULIN DETEMIR) 1 UNITS/0.01ML SC SCH (09:00)
[2017-08-23 14:00] VITALS: BP 115/68
[2017-08-23] MEDS: LIDOCAINE 5% (LIDODERM) PATCH TD SCH (20:18)
[2017-08-23] MEDS: DULoxetine 30 MG CAP (CYMBALTA) PO SCH (20:19)
[2017-08-23] MEDS: ASPIRIN 81 MG ENTERIC TAB PO SCH (20:20)
[2017-08-23] MEDS: AMITRIPTYLINE 25 MG TAB PO SCH (20:20)
[2017-08-23] MEDS: NABUMETONE 500 MG TAB PO SCH (21:45)
[2017-08-23] MEDS: zolPIDEM TARTRATE 5 MG TAB PO PRN (21:46)
[2017-08-23 22:00] VITALS: BP 136/68
--- NOTE | 2017-08-24 01:45 | IPNPDOC ---
Subjective Date Seen The patient was seen on 08/23/17. Subjective Chief Complaint/HPI The patient is a 57-year-old female admitted with a reason for visit of Intractable Back Pain. Events since last encounter Patient reports pain better controlled on oxycodone-acetaminophen; she is, as she has been every day this week, resting quietly in bed when I enter the room. Patient reports greater ability to walk around the room and participate in PT. PT note suggests patient was overly sedated this a.m. Arguello removed yesterday. Patient admits to a sense of frequency, but also admits that at baseline she sometimes has frequent urges to void, even when bladder is not full. Constitutional: Denies: Chills, Fever Pulmonary: Denies: Dyspnea, Cough Cardiovascular: Denies: Chest Pain Gastrointestinal: Denies: Nausea, Vomiting, Diarrhea, Constipation Genitourinary: Reports: Frequency Objective Physical Examination General Exam: Positive: Alert, No Acute Distress Eye Exam: Positive: Conjunctiva & lids normal, Negative: Sclera icteric ENT Exam: Positive: Atraumatic Neck Exam: Negative: Lymphadenopathy Chest Exam: Positive: Clear to auscultation, Normal air movement, Diminished ( possibly related to obesity-hypoventilation syndrome), Negative: Rales, Rhonchi, Wheezing Heart Exam: Positive: Rate Normal, Normal S1, Normal S2 Abdomen Exam: Positive: Normal bowel sounds, Soft, Negative: Tenderness Extremity Exam: Negative: Edema Assessment /Plan Problems (1) Intractable back pain Status: Acute Response to Treatment: Stable Problem Text: 08/23 -- pain better controlled, no change to regimen today. 08/22 -- Changed from hydrocodone-acetaminophen to oxycodone-acetaminophen. Added Bengay. 08/21 -- DCed morphine and increased dose of home hydrocodone-acetaminophen. Encouraged her to continue working with PT. 08/20 -- Patient reports relief from pain with SI joint injection. I anticipate that this should allow her to work more with PT tomorrow, and decrease her IV narcotic. 08/19 -- I spaced out her morphine to Q 4 hours, and restarted her home narcotic at her home dosing. I ordered a Lidoderm patch. Discussed with patient that I thought a pain management referral might be valuable. She voiced concern about injections. I asked her to hear them out and consider if they might have anything to offer, including medication recommendations. Our current plan is not managing her pain. Pt admitted due to intractable back pain causing an inability to care for herself. Pain control w morphine; I added cyclobenzaprine today to see if an antispasmodic will make a difference. We have ordered PT/OT, but she has just started working with them. I had a angel discussion with her about the types of rehabilitation available and what she will likely need when her pain is reasonably controlled. She states she thinks it is unlikely she will be able to work 3 hours a day doing rehabilitation. She declines pain management referral - states she will never get another injection due to a poor reaction to one in the past. MRI L spine: Impression: 1. No evidence of central canal narrowing or neural foraminal stenosis. 2. Minimal disc bulging at L2/L3. 3. Surgical fusion changes at L4/L5 are grossly intact. (2) Diabetes mellitus Status: Chronic Response to Treatment: Stable Problem Text: 08/23 -- increased Levemir again. 08/22 -- Increased Levemir. 08/21 -- Poorly controlled. I would like to restart Victoza, but it is not available in house. Will start long-acting insulin while in hospital only. d/c metformin in case a dye study is needed, ISS while in house. (3) Anxiety Status: Chronic Response to Treatment: Stable Problem Text: c/w home meds (4) Neuropathy Status: Chronic Response to Treatment: Stable Problem Text: c/w home meds (5) Neurogenic bladder Status: Chronic Response to Treatment: Stable Problem Text: 08/22 -- Discussed yesterday removing Arguello, and she declined. Today I ordered it removed, for fear that she might develop a UTI. At baseline , she self-caths. c/w home meds (6) DVT prophylaxis Status: Acute Response to Treatment: Stable Problem Text: scd teds Plan/VTE VTE Prophylaxis Ordered?: Yes Plan/Urinary Catheter Reason for insertion/continuin: Acute obstruct/retention VS, I&O, 24H, [facility] Vital Signs/I&O Vital Signs Date Time Temp Pulse Resp B/P (MAP) Pulse Ox O2 Delivery O2 Flow Rate FiO2 08/23/17 22:20 18 08/23/17 22:00 97.6 84 136/68 (90) 96 Room Air Laboratory Data 24H LABS Laboratory Tests 2 08/23/17 08:00: Bedside Glucose (Misc Panel) 175H 08/23/17 11:39: Bedside Glucose (Misc Panel) 258H 08/23/17 17:11: Bedside Glucose (Misc Panel) 215H 08/23/17 20:01: Bedside Glucose (Misc Panel) 346H GABI BISHOP DO Aug 24, 2017 01:45
[2017-08-24] MEDS: PERCOCET 5MG/325MG TAB PO PRN ×5 (02:47→21:02)
[2017-08-24 06:00] VITALS: BP 131/72
[2017-08-24] MEDS: HumaLOG INSULIN (NovoLOG) PER UNIT SC SCH ×4 (07:58→21:19)
[2017-08-24] MEDS: LEVEMIR (INSULIN DETEMIR) 1 UNITS/0.01ML SC SCH (07:59)
[2017-08-24] MEDS: DICLOFENAC EPOLAMINE 1.3 % PATCH TOP SCH ×2 (08:00→21:03)
[2017-08-24] MEDS: ENOXAPARIN 40 MG/0.4 ML SYRINGE (J1650) SC SCH (08:00)
[2017-08-24] MEDS: ANALGESIC BALM CRM 120 GM TOP SCH ×4 (08:00→21:00)
[2017-08-24] MEDS: **NOTE PATIENT COMMENT** MISC XX SCH (08:01)
[2017-08-24] MEDS: busPIRone 10 MG TAB PO SCH ×2 (08:01→21:00)
[2017-08-24] MEDS: NYSTATIN 100,000 UNITS/GM TOPICAL PWD 15 GM TOP SCH ×2 (08:01→21:03)
[2017-08-24] MEDS: GABAPENTIN 400 MG CAP PO SCH ×4 (08:02→21:01)
[2017-08-24] MEDS: oxyBUTYnin 5 MG TAB PO SCH ×2 (08:02→21:01)
[2017-08-24] MEDS: MULTIVITAMINS/MINERALS THERAP 1 TAB PO SCH (08:02)
[2017-08-24] MEDS: ATORVASTATIN 20 MG TAB PO SCH (08:02)
[2017-08-24] MEDS: ZONISAMIDE 100 MG CAP (ZONEGRAN) PO SCH ×2 (08:02→21:01)
[2017-08-24] MEDS: FEXOFENADINE 60 MG TAB PO SCH (08:02)
[2017-08-24] MEDS: CYCLOBENZAPRINE 10 MG TAB PO PRN (08:07)
[2017-08-24 14:00] VITALS: BP 128/65
--- NOTE | 2017-08-24 15:16 | IPNPDOC ---
Subjective Date Seen The patient was seen on 08/24/17. Subjective Chief Complaint/HPI The patient is a 57-year-old female admitted with a reason for visit of Intractable Back Pain. States her pain is better controlled today. States she has neurogenic bladder and self-catheterizes at home. She is displeased that Taylor was removed 2 days ago after being in for 7 days, and feels uncomfortable with bladder scan and straight-catheterizations. Discussed with pt the infectious risk of prolonged Taylor. General: Reports: Normal Appetite Constitutional: Denies: Chills, Fever Eyes: Denies: Vision change ENT: Denies: Dysphagia Pulmonary: Denies: Dyspnea, Cough Cardiovascular: Denies: Chest Pain, Palpitations, Edema, Lt Headedness Gastrointestinal: Denies: Nausea, Vomiting Genitourinary: Reports: Frequency, Retention (neurogenic bladder requiring frequent catherterizations), Other Symptoms (urgency), Denies: Dysuria, Hematuria Musculoskeletal: Reports: Back Pain (improving with medicine ) Neurological: Denies: Weakness, Numbness, Incoordination Objective Physical Examination General Exam: Positive: Alert, No Acute Distress Eye Exam: Positive: Conjunctiva & lids normal, EOMI, Negative: Sclera icteric ENT Exam: Positive: Atraumatic Chest Exam: Positive: Clear to auscultation, Normal air movement, Diminished ( possibly related to obesity-hypoventilation syndrome), Negative: Rales, Rhonchi, Wheezing Heart Exam: Positive: Rate Normal, Normal S1, Normal S2 Abdomen Exam: Positive: Normal bowel sounds, Soft, Negative: Tenderness Extremity Exam: Positive: Normal pulses, Negative: Edema Neuro Exam: Positive: Normal Speech Psych Exam: Positive: Oriented x 3 Assessment /Plan Problems (1) Intractable back pain Status: Acute Response to Treatment: Stable Problem Text: 08/24--pain controlled today. Continue current medications and monitor. 08/23 -- pain better controlled, no change to regimen today. 08/22 -- Changed from hydrocodone-acetaminophen to oxycodone-acetaminophen. Added Bengay. 08/21 -- DCed morphine and increased dose of home hydrocodone-acetaminophen. Encouraged her to continue working with PT. 08/20 -- Patient reports relief from pain with SI joint injection. I anticipate that this should allow her to work more with PT tomorrow, and decrease her IV narcotic. 08/19 -- I spaced out her morphine to Q 4 hours, and restarted her home narcotic at her home dosing. I ordered a Lidoderm patch. Discussed with patient that I thought a pain management referral might be valuable. She voiced concern about injections. I asked her to hear them out and consider if they might have anything to offer, including medication recommendations. Our current plan is not managing her pain. Pt admitted due to intractable back pain causing an inability to care for herself. Pain control w morphine; I added cyclobenzaprine today to see if an antispasmodic will make a difference. We have ordered PT/OT, but she has just started working with them. I had a angel discussion with her about the types of rehabilitation available and what she will likely need when her pain is reasonably controlled. She states she thinks it is unlikely she will be able to work 3 hours a day doing rehabilitation. She declines pain management referral - states she will never get another injection due to a poor reaction to one in the past. MRI L spine: Impression: 1. No evidence of central canal narrowing or neural foraminal stenosis. 2. Minimal disc bulging at L2/L3. 3. Surgical fusion changes at L4/L5 are grossly intact. (2) Diabetes mellitus Status: Chronic Response to Treatment: Stable Problem Text: 08/24 -- continue current ISS. No changes made, as sugar is in mid 100s this am. 08/23 -- increased Levemir again. 08/22 -- Increased Levemir. 08/21 -- Poorly controlled. I would like to restart Victoza, but it is not available in house. Will start long-acting insulin while in hospital only. d/c metformin in case a dye study is needed, ISS while in house. (3) Anxiety Status: Chronic Response to Treatment: Stable Problem Text: c/w home meds (4) Neuropathy Status: Chronic Response to Treatment: Stable Problem Text: c/w home meds (5) Neurogenic bladder Status: Chronic Response to Treatment: Stable Problem Text: 08/24 -- pt requesting to have Taylor catheter restarted. Discussed with pt risks of infection. Will continue with bladder scans and straight caths. 08/22 -- Discussed yesterday removing Taylor, and she declined. Today I ordered it removed, for fear that she might develop a UTI. At baseline, she self-caths. c/w home meds (6) DVT prophylaxis Status: Acute Response to Treatment: Stable Problem Text: scd teds Plan/VTE VTE Prophylaxis Ordered?: Yes Plan/Urinary Catheter Urinary Catheter: Place Taylor Reason for insertion/continuin: Other-document below Plan Has neurogenic bladder and unable to do self catheterization at this time due to back pain. With replace taylor for 72 hours VS, I&O, 24H, Fishbone Vital Signs/I&O Vital Signs Date Time Temp Pulse Resp B/P (MAP) Pulse Ox O2 Delivery O2 Flow Rate FiO2 08/24/17 08:32 18 08/24/17 06:00 97.3 71 131/72 (91) 96 Room Air I&O- Last 24 Hours up to 6 AM 08/25/17 05:59 Intake Total 0 ml Output Total 675 ml Balance -675 ml Laboratory Data 24H LABS Laboratory Tests 2 08/23/17 11:39: Bedside Glucose (Misc Panel) 258H 08/23/17 17:11: Bedside Glucose (Misc Panel) 215H 08/23/17 20:01: Bedside Glucose (Misc Panel) 346H 08/24/17 06:04: Bedside Glucose (Misc Panel) 164H GME ATTESTATION GME ATTESTATION My preceptor for this patient encounter was physically present in the building during the encounter and was fully available. As needed, all aspects of the patient interview, examination, medical decision making process, and medical care plan development were reviewed and approved by the preceptor. Preceptor is aware and concurs with the plan as stated in the body of this note and will attest to such by his/her cosignature. ATTENDING NOTE The patient was seen and examined by the attending physician. The case was reviewed with the PGY-1. HEATH ALEXANDRE DO Aug 24, 2017 11:20 Enrique Thomas M.D. Aug 24, 2017 17:44
[2017-08-24] MEDS: NABUMETONE 500 MG TAB PO SCH (21:00)
[2017-08-24] MEDS: DULoxetine 30 MG CAP (CYMBALTA) PO SCH (21:00)
[2017-08-24] MEDS: ASPIRIN 81 MG ENTERIC TAB PO SCH (21:01)
[2017-08-24] MEDS: zolPIDEM TARTRATE 5 MG TAB PO PRN (21:01)
[2017-08-24] MEDS: AMITRIPTYLINE 25 MG TAB PO SCH (21:01)
[2017-08-24] MEDS: LIDOCAINE 5% (LIDODERM) PATCH TD SCH (21:03)
[2017-08-24 22:00] VITALS: BP 133/80
[2017-08-25] MEDS: PERCOCET 5MG/325MG TAB PO PRN ×5 (01:35→20:50)
[2017-08-25 06:00] VITALS: BP 140/90
[2017-08-25 07:23] LABS: MEAN CORPUSCULAR HEMOGLOBIN 36.3 pg (27.0-33.0); MEAN CORPUSCULAR HGB CONC 33.9 g/dl (32.0-36.5); RED CELL DISTRIBUTION WIDTH 12.8 % (11.5-14.5); WHITE BLOOD COUNT 10.8 10^3/uL (4.0-10.0)
[2017-08-25 07:26] LABS: MEAN CORPUSCULAR VOLUME 107.2 fl (80.0-96.0)
[2017-08-25] MEDS: ENOXAPARIN 40 MG/0.4 ML SYRINGE (J1650) SC SCH (08:56)
[2017-08-25] MEDS: busPIRone 10 MG TAB PO SCH ×2 (08:57→20:48)
[2017-08-25] MEDS: MULTIVITAMINS/MINERALS THERAP 1 TAB PO SCH (08:57)
[2017-08-25] MEDS: LEVEMIR (INSULIN DETEMIR) 1 UNITS/0.01ML SC SCH (08:57)
[2017-08-25] MEDS: HumaLOG INSULIN (NovoLOG) PER UNIT SC SCH ×4 (08:57→21:00)
[2017-08-25] MEDS: FEXOFENADINE 60 MG TAB PO SCH (08:58)
[2017-08-25] MEDS: ZONISAMIDE 100 MG CAP (ZONEGRAN) PO SCH ×2 (08:58→20:50)
[2017-08-25] MEDS: oxyBUTYnin 5 MG TAB PO SCH ×2 (08:58→20:50)
[2017-08-25] MEDS: GABAPENTIN 400 MG CAP PO SCH ×4 (08:58→20:48)
[2017-08-25] MEDS: ATORVASTATIN 20 MG TAB PO SCH (08:58)
[2017-08-25] MEDS: DICLOFENAC EPOLAMINE 1.3 % PATCH TOP SCH ×2 (08:59→20:50)
[2017-08-25] MEDS: ANALGESIC BALM CRM 120 GM TOP SCH ×4 (08:59→20:51)
[2017-08-25] MEDS: **NOTE PATIENT COMMENT** MISC XX SCH (08:59)
[2017-08-25] MEDS: NYSTATIN 100,000 UNITS/GM TOPICAL PWD 15 GM TOP SCH ×2 (08:59→20:51)
--- NOTE | 2017-08-25 12:54 | IPNPDOC ---
Subjective Date Seen The patient was seen on 08/25/17. Subjective Chief Complaint/HPI The patient is a 57-year-old female admitted with a reason for visit of Intractable Back Pain. Events since last encounter Patient is lying in bed, mild discomfort. She states pain is more tolerable. Was able to get up today and walk to bathroom to use the commode. Had not been able to do that prior. Still having pain. Rates it 9-10/10 but decreases to 5-6/ 10 with pain medication. Still has urinary catheter. Understands the risk with using a taylor versus straight catheterizing. Feels straight catherization is less humane and wants to continue Taylor for now. Constitutional: Denies: Chills, Fever Eyes: Denies: Pain, Vision change ENT: Denies: Head Aches Pulmonary: Denies: Dyspnea Cardiovascular: Denies: Chest Pain Musculoskeletal: Reports: Back Pain Objective Physical Examination General Exam: Positive: Alert, No Acute Distress, Other (Mild discomfort. ) Eye Exam: Negative: Sclera icteric ENT Exam: Positive: Atraumatic Chest Exam: Positive: Clear to auscultation, Normal air movement, Diminished, Negative: Rales, Rhonchi, Wheezing Heart Exam: Positive: Rate Normal, Normal S1, Normal S2, Negative: Murmurs, Rubs Abdomen Exam: Positive: Normal bowel sounds, Soft, Negative: Tenderness Extremity Exam: Positive: Normal pulses (Radial pulse 2/4 bilaterally. ), Negative: Edema Neuro Exam: Positive: Normal Speech Assessment /Plan Problems (1) Intractable back pain Status: Acute Response to Treatment: Stable Problem Text: Pain is more manageable today. Able to walk to bathroom and use comode. Will continue pain medication at this time. Goal is to have some better pain control prior to discharge. (2) Neurogenic bladder Status: Chronic Response to Treatment: Stable Problem Text: Patient had Taylor catheter restarted. Discussed with pt risks of infection. Patient understood risks. Continue taylor for now. (3) Diabetes mellitus Status: Chronic Response to Treatment: Stable Problem Text: Continue current sliding scale. Monitor glucose. (4) Neuropathy Status: Chronic Response to Treatment: Stable Problem Text: Continue home meds (5) Anxiety Status: Chronic Response to Treatment: Stable Problem Text: continue home meds (6) DVT prophylaxis Status: Acute Response to Treatment: Stable Problem Text: scd teds Plan/VTE VTE Prophylaxis Ordered?: Yes Plan/Urinary Catheter Urinary Catheter: Place Taylor Reason for insertion/continuin: Other-document below VS, I&O, 24H, Fishbone Vital Signs/I&O Vital Signs Date Time Temp Pulse Resp B/P (MAP) Pulse Ox O2 Delivery O2 Flow Rate FiO2 08/25/17 11:25 16 Room Air 08/25/17 06:00 97.5 65 140/90 (107) 95 I&O- Last 24 Hours up to 6 AM 08/26/17 06:00 Intake Total 600 ml Balance 600 ml Laboratory Data 24H LABS Laboratory Tests 2 08/24/17 16:56: Bedside Glucose (Misc Panel) 203H 08/24/17 20:04: Bedside Glucose (Misc Panel) 312H 08/25/17 06:15: Nucleated Red Blood Cells % (auto) 0.0 08/25/17 08:30: Bedside Glucose (Misc Panel) 264H 08/25/17 11:39: Bedside Glucose (Misc Panel) 142H CBC/BMP Laboratory Tests 08/25/17 06:15 Red Blood Count 3.33 L, Mean Corpuscular Volume 107.2 H, Mean Corpuscular Hemoglobin 36.3 H, Mean Corpuscular Hemoglobin Concent 33.9, Red Cell Distribution Width 12.8 GME ATTESTATION GME ATTESTATION My preceptor for this patient encounter was physically present in the building during the encounter and was fully available. As needed, all aspects of the patient interview, examination, medical decision making process, and medical care plan development were reviewed and approved by the preceptor. Preceptor is aware and concurs with the plan as stated in the body of this note and will attest to such by his/her cosignature. ATTENDING NOTE The patient was personally seen by me and the case was reviewed with the PGY-2. JAY MONTEZ DO Aug 25, 2017 12:54 Enrique Thomas M.D. Aug 25, 2017 18:10
[2017-08-25 14:00] VITALS: BP 173/81
[2017-08-25] MEDS: NABUMETONE 500 MG TAB PO SCH (20:48)
[2017-08-25] MEDS: DULoxetine 30 MG CAP (CYMBALTA) PO SCH (20:49)
[2017-08-25] MEDS: zolPIDEM TARTRATE 5 MG TAB PO PRN (20:50)
[2017-08-25] MEDS: AMITRIPTYLINE 25 MG TAB PO SCH (20:50)
[2017-08-25] MEDS: ASPIRIN 81 MG ENTERIC TAB PO SCH (20:50)
[2017-08-25] MEDS: LIDOCAINE 5% (LIDODERM) PATCH TD SCH (20:51)
[2017-08-25 22:00] VITALS: BP 133/63
[2017-08-26] MEDS: PERCOCET 5MG/325MG TAB PO PRN ×5 (01:58→20:34)
[2017-08-26 06:00] VITALS: BP 120/73
[2017-08-26 08:00] VITALS: BP 123/75
[2017-08-26] MEDS: FEXOFENADINE 60 MG TAB PO SCH (08:13)
[2017-08-26] MEDS: MULTIVITAMINS/MINERALS THERAP 1 TAB PO SCH (08:13)
[2017-08-26] MEDS: ATORVASTATIN 20 MG TAB PO SCH (08:14)
[2017-08-26] MEDS: busPIRone 10 MG TAB PO SCH ×2 (08:14→20:33)
[2017-08-26] MEDS: GABAPENTIN 400 MG CAP PO SCH ×4 (08:14→20:32)
[2017-08-26] MEDS: ZONISAMIDE 100 MG CAP (ZONEGRAN) PO SCH ×2 (08:14→20:31)
[2017-08-26] MEDS: oxyBUTYnin 5 MG TAB PO SCH ×2 (08:14→20:34)
[2017-08-26] MEDS: LEVEMIR (INSULIN DETEMIR) 1 UNITS/0.01ML SC SCH (08:15)
[2017-08-26] MEDS: HumaLOG INSULIN (NovoLOG) PER UNIT SC SCH ×4 (08:15→21:00)
[2017-08-26] MEDS: **NOTE PATIENT COMMENT** MISC XX SCH (08:16)
[2017-08-26] MEDS: DICLOFENAC EPOLAMINE 1.3 % PATCH TOP SCH ×2 (08:16→20:36)
[2017-08-26] MEDS: NYSTATIN 100,000 UNITS/GM TOPICAL PWD 15 GM TOP SCH ×2 (08:16→20:36)
[2017-08-26] MEDS: ENOXAPARIN 40 MG/0.4 ML SYRINGE (J1650) SC SCH (08:16)
[2017-08-26] MEDS: ANALGESIC BALM CRM 120 GM TOP SCH ×4 (08:17→20:35)
--- NOTE | 2017-08-26 09:38 | IPNPDOC ---
Subjective Date Seen The patient was seen on 08/26/17. Subjective Chief Complaint/HPI The patient is a 57-year-old female admitted with a reason for visit of Intractable Back Pain. Events since last encounter Pt was OOB to the chair for a short time yesterday, she is not ambulating much. She tells me that her pain is however pain controlled with her current regimen. General: Reports: Fatigue Constitutional: Denies: Chills, Fever ENT: Denies: Head Aches Pulmonary: Denies: Dyspnea, Cough Cardiovascular: Denies: Chest Pain, Palpitations Gastrointestinal: Denies: Nausea, Vomiting, Diarrhea Neurological: Reports: Weakness Psych: Denies: Mood Normal Objective Physical Examination General Exam: Positive: Alert, No Acute Distress, Other (Mild discomfort. ) Eye Exam: Negative: Sclera icteric ENT Exam: Positive: Atraumatic Chest Exam: Positive: Clear to auscultation, Normal air movement, Diminished, Negative: Rales, Rhonchi, Wheezing Heart Exam: Positive: Rate Normal, Normal S1, Normal S2, Negative: Murmurs, Rubs Abdomen Exam: Positive: Normal bowel sounds, Soft, Negative: Tenderness Extremity Exam: Positive: Normal pulses (Radial pulse 2/4 bilaterally. ), Negative: Edema Neuro Exam: Positive: Normal Speech Assessment /Plan Problems (1) Intractable back pain Status: Acute Response to Treatment: Stable Problem Text: Pain controlled on current regimen. She needs to be more involved with PT and OOB more often, we talked about this today. (2) Neurogenic bladder Status: Chronic Response to Treatment: Stable Problem Text: 08/27 - Taylor was replaced last week, as pt felt she cldn't get up often enough to urinate. We spoke about this today, enc pt out of bed for meals, ambulate 3 times daily, she really would be a good STR candidate. I spoke with PCC, Milena who will work on this with PFS today. 08/26 Patient had Taylor catheter restarted. Discussed with pt risks of infection. Patient understood risks. Continue taylor for now. (3) Diabetes mellitus Status: Chronic Response to Treatment: Stable Problem Text: Continue current sliding scale. Monitor glucose. (4) Neuropathy Status: Chronic Response to Treatment: Stable Problem Text: Continue home meds (5) Anxiety Status: Chronic Response to Treatment: Stable Problem Text: continue home meds (6) DVT prophylaxis Status: Acute Response to Treatment: Stable Problem Text: scd teds Plan/VTE VTE Prophylaxis Ordered?: Yes Plan/Urinary Catheter Urinary Catheter: Place Taylor Reason for insertion/continuin: Other-document below Plan Family Medicine Attending Note: I saw and examined Ms. Evans, discussed with BRAULIO Romero. Agree with their note as documented. I believe Ms. Evans will be best served in a short-term rehabilitation facility. I would like to work hard to get her toward this goal within the next few days. Toward that end , I encouraged her to focus on being up and out of bed for at least 2 hours today. Additionally my plan is to remove her Taylor catheter tomorrow. (coiler) VS, I&O, 24H, Fishbone Vital Signs/I&O Vital Signs Date Time Temp Pulse Resp B/P (MAP) Pulse Ox O2 Delivery O2 Flow Rate FiO2 08/26/17 08:15 18 08/26/17 08:00 97.2 70 123/75 (91) 96 Room Air Laboratory Data 24H LABS Laboratory Tests 2 08/25/17 11:39: Bedside Glucose (Misc Panel) 142H 08/25/17 16:53: Bedside Glucose (Misc Panel) 221H 08/25/17 19:53: Bedside Glucose (Misc Panel) 243H LION CARTY PA-C Aug 26, 2017 9:38 am Ambrose Elias MD Aug 26, 2017 10:26 pm
[2017-08-26] MEDS: CYCLOBENZAPRINE 10 MG TAB PO PRN (10:51)
[2017-08-26] MEDS: DOCUSATE SODIUM 100 MG CAP PO PRN (10:51)
[2017-08-26] MEDS: RESTASIS EYE DROPS (PATIENT'S OWN MED) OU SCH ×2 (10:51→20:35)
[2017-08-26 14:00] VITALS: BP 146/74
[2017-08-26] MEDS: ASPIRIN 81 MG ENTERIC TAB PO SCH (20:31)
[2017-08-26] MEDS: NABUMETONE 500 MG TAB PO SCH (20:32)
[2017-08-26] MEDS: DULoxetine 30 MG CAP (CYMBALTA) PO SCH (20:32)
[2017-08-26] MEDS: zolPIDEM TARTRATE 5 MG TAB PO PRN (20:33)
[2017-08-26] MEDS: AMITRIPTYLINE 25 MG TAB PO SCH (20:34)
[2017-08-26] MEDS: LIDOCAINE 5% (LIDODERM) PATCH TD SCH (20:35)
[2017-08-26 22:00] VITALS: BP 120/73
[2017-08-27] MEDS: PERCOCET 5MG/325MG TAB PO PRN ×5 (00:31→21:52)
[2017-08-27 06:00] VITALS: BP 122/70
--- NOTE | 2017-08-27 08:44 | IPNPDOC ---
Subjective Date Seen The patient was seen on 08/27/17. Subjective Chief Complaint/HPI The patient is a 57-year-old female admitted with a reason for visit of Intractable Back Pain. Events since last encounter Pt reports that she doesn't want to go home without help, she thinks that she will be unable to care for herself without a great deal of help at home. She would just rather go into rehab. Nursing reports that she was up and moving around both ambulating and wheeling herself in a W/C much more freely yest. General: Reports: Fatigue Constitutional: Denies: Chills, Fever ENT: Denies: Head Aches Pulmonary: Denies: Dyspnea, Cough Cardiovascular: Denies: Chest Pain, Palpitations Gastrointestinal: Denies: Nausea, Vomiting Neurological: Reports: Weakness Psych: Reports: Mood Normal Objective Physical Examination General Exam: Positive: Alert, No Acute Distress, Other (Mild discomfort. ) Eye Exam: Negative: Sclera icteric ENT Exam: Positive: Atraumatic Chest Exam: Positive: Clear to auscultation, Normal air movement, Diminished, Negative: Rales, Rhonchi, Wheezing Heart Exam: Positive: Rate Normal, Normal S1, Normal S2, Negative: Murmurs, Rubs Abdomen Exam: Positive: Normal bowel sounds, Soft, Negative: Tenderness Extremity Exam: Positive: Normal pulses (Radial pulse 2/4 bilaterally. ), Negative: Edema Neuro Exam: Positive: Normal Speech Assessment /Plan Problems (1) Intractable back pain Status: Acute Response to Treatment: Stable Problem Text: 08/27/17 - Pt will not qualify for STR at this time, she is functionally doing well with PT, will need to continue PT at this time. 08/26/17 Pain controlled on current regimen. She needs to be more involved with PT and OOB more often, we talked about this today. (2) Neurogenic bladder Status: Chronic Response to Treatment: Stable Problem Text: 08/27 - D/c taylor today. 08/26 - Taylor was replaced last week, as pt felt she cldn't get up often enough to urinate. We spoke about this today, enc pt out of bed for meals, ambulate 3 times daily, she really would be a good STR candidate. I spoke with PCC, Milena who will work on this with PFS today. 08/25 Patient had Taylor catheter restarted. Discussed with pt risks of infection. Patient understood risks. Continue taylor for now. (3) Diabetes mellitus Status: Chronic Response to Treatment: Stable Problem Text: Continue current sliding scale. Monitor glucose. (4) Neuropathy Status: Chronic Response to Treatment: Stable Problem Text: Continue home meds (5) Anxiety Status: Chronic Response to Treatment: Stable Problem Text: continue home meds (6) DVT prophylaxis Status: Acute Response to Treatment: Stable Problem Text: scd teds Plan/VTE VTE Prophylaxis Ordered?: Yes Plan/Urinary Catheter Urinary Catheter: Place Taylor Reason for insertion/continuin: Other-document below Plan Family Medicine Attending Note: I saw and examined Ms. Evans, discussed with BRAULIO Romero. Agree with their note as documented. We have a bit of a problem regarding discharge planning for this patient. Until very recently it's been clear that she was headed for subacute rehabilitation because of her severe exercise intolerance. However, after she applied herself yesterday, she seems to be doing too well for subacute rehabilitation. [facility]&R has already turned her down for acute rehabilitation. It seems that her remaining choices may be assisted living or home with services. I think she is hesitant about going home with services. I'm not sure whether she truly qualifies for assisted living. I encouraged her to work as aggressively as she could today to improve her functional status and we'll see where she is by tomorrow. Maybe it will be more clear in the near future where she should be discharged to. (art model) VS, I&O, 24H, Fishbone Vital Signs/I&O Vital Signs Date Time Temp Pulse Resp B/P (MAP) Pulse Ox O2 Delivery O2 Flow Rate FiO2 08/27/17 06:00 97.0 70 16 122/70 (87) 100 Room Air Laboratory Data 24H LABS Laboratory Tests 2 08/26/17 11:44: Bedside Glucose (Misc Panel) 174H 08/26/17 16:53: Bedside Glucose (Misc Panel) 192H 08/26/17 20:36: Bedside Glucose (Misc Panel) 196H LION CARTY PA-C Aug 27, 2017 08:44 Ambrose Elias MD Aug 27, 2017 21:20
[2017-08-27] MEDS: ANALGESIC BALM CRM 120 GM TOP SCH ×4 (09:00→21:00)
[2017-08-27] MEDS: ENOXAPARIN 40 MG/0.4 ML SYRINGE (J1650) SC SCH (09:45)
[2017-08-27] MEDS: DICLOFENAC EPOLAMINE 1.3 % PATCH TOP SCH ×2 (09:45→21:00)
[2017-08-27] MEDS: HumaLOG INSULIN (NovoLOG) PER UNIT SC SCH ×4 (09:46→21:00)
[2017-08-27] MEDS: GABAPENTIN 400 MG CAP PO SCH ×4 (09:46→21:51)
[2017-08-27] MEDS: MULTIVITAMINS/MINERALS THERAP 1 TAB PO SCH (09:47)
[2017-08-27] MEDS: ZONISAMIDE 100 MG CAP (ZONEGRAN) PO SCH ×2 (09:47→21:51)
[2017-08-27] MEDS: ATORVASTATIN 20 MG TAB PO SCH (09:47)
[2017-08-27] MEDS: FEXOFENADINE 60 MG TAB PO SCH (09:47)
[2017-08-27] MEDS: oxyBUTYnin 5 MG TAB PO SCH ×2 (09:48→21:50)
[2017-08-27] MEDS: busPIRone 10 MG TAB PO SCH ×2 (09:48→21:50)
[2017-08-27] MEDS: LEVEMIR (INSULIN DETEMIR) 1 UNITS/0.01ML SC SCH (09:48)
[2017-08-27] MEDS: NYSTATIN 100,000 UNITS/GM TOPICAL PWD 15 GM TOP SCH ×2 (09:49→21:53)
[2017-08-27] MEDS: RESTASIS EYE DROPS (PATIENT'S OWN MED) OU SCH ×2 (09:49→21:50)
[2017-08-27] MEDS: CYCLOBENZAPRINE 10 MG TAB PO PRN ×2 (09:52→18:12)
[2017-08-27] MEDS: **NOTE PATIENT COMMENT** MISC XX SCH (10:28)
[2017-08-27 14:00] VITALS: BP 164/87
[2017-08-27] MEDS: LIDOCAINE 5% (LIDODERM) PATCH TD SCH ×2 (21:00→21:53)
[2017-08-27] MEDS: DULoxetine 30 MG CAP (CYMBALTA) PO SCH (21:50)
[2017-08-27] MEDS: zolPIDEM TARTRATE 5 MG TAB PO PRN (21:50)
[2017-08-27] MEDS: AMITRIPTYLINE 25 MG TAB PO SCH (21:51)
[2017-08-27] MEDS: NABUMETONE 500 MG TAB PO SCH (21:51)
[2017-08-27] MEDS: ASPIRIN 81 MG ENTERIC TAB PO SCH (21:52)
[2017-08-27 22:00] VITALS: BP 125/69
[2017-08-28] MEDS: PERCOCET 5MG/325MG TAB PO PRN ×5 (04:17→22:48)
[2017-08-28 06:00] VITALS: BP 120/73
[2017-08-28 07:02] LABS: MEAN CORPUSCULAR HEMOGLOBIN 35.8 pg (27.0-33.0); MEAN CORPUSCULAR HGB CONC 33.7 g/dl (32.0-36.5); RED CELL DISTRIBUTION WIDTH 12.8 % (11.5-14.5); WHITE BLOOD COUNT 9.9 10^3/uL (4.0-10.0)
[2017-08-28 07:04] LABS: MEAN CORPUSCULAR VOLUME 106.3 fl (80.0-96.0)
[2017-08-28] MEDS: HumaLOG INSULIN (NovoLOG) PER UNIT SC SCH ×4 (07:30→21:00)
[2017-08-28] MEDS: ANALGESIC BALM CRM 120 GM TOP SCH ×4 (09:00→22:40)
[2017-08-28] MEDS: ATORVASTATIN 20 MG TAB PO SCH (10:12)
[2017-08-28] MEDS: ZONISAMIDE 100 MG CAP (ZONEGRAN) PO SCH ×2 (10:12→22:38)
[2017-08-28] MEDS: oxyBUTYnin 5 MG TAB PO SCH ×2 (10:12→22:38)
[2017-08-28] MEDS: GABAPENTIN 400 MG CAP PO SCH ×4 (10:12→22:38)
[2017-08-28] MEDS: CYCLOBENZAPRINE 10 MG TAB PO PRN ×2 (10:12→22:38)
[2017-08-28] MEDS: busPIRone 10 MG TAB PO SCH ×2 (10:12→22:38)
[2017-08-28] MEDS: RESTASIS EYE DROPS (PATIENT'S OWN MED) OU SCH ×2 (10:13→22:40)
[2017-08-28] MEDS: FEXOFENADINE 60 MG TAB PO SCH (10:13)
[2017-08-28] MEDS: ENOXAPARIN 40 MG/0.4 ML SYRINGE (J1650) SC SCH (10:13)
[2017-08-28] MEDS: MULTIVITAMINS/MINERALS THERAP 1 TAB PO SCH (10:13)
[2017-08-28] MEDS: **NOTE PATIENT COMMENT** MISC XX SCH (10:14)
[2017-08-28] MEDS: LEVEMIR (INSULIN DETEMIR) 1 UNITS/0.01ML SC SCH (10:14)
[2017-08-28] MEDS: DICLOFENAC EPOLAMINE 1.3 % PATCH TOP SCH ×2 (10:14→22:40)
[2017-08-28] MEDS: NYSTATIN 100,000 UNITS/GM TOPICAL PWD 15 GM TOP SCH ×2 (10:14→22:42)
[2017-08-28 14:00] VITALS: BP 130/62
--- NOTE | 2017-08-28 14:46 | IPNPDOC ---
Subjective Date Seen The patient was seen on 08/28/17. Subjective Chief Complaint/HPI The patient is a 57-year-old female admitted with a reason for visit of Intractable Back Pain. Events since last encounter She has been up out of her chair for several hours today. She is walking well with physical therapy in the [facility]. [facility] is working on a discharge plan for her and it seems that right now home with services is the best option. General: Reports: Normal Appetite Constitutional: Reports: Weakness (improving with therapy) Pulmonary: Denies: Cough Cardiovascular: Denies: Chest Pain, Palpitations Genitourinary: Reports: Dysuria (related to abrasions from self catheterizing.) Psych: Reports: Mood Normal, Depression Objective Physical Examination General Exam: Positive: Alert, No Acute Distress, Other (was able to walk from the bathroom to her bed safely) Eye Exam: Positive: EOMI, Negative: Sclera icteric ENT Exam: Positive: Atraumatic Chest Exam: Positive: Clear to auscultation, Normal air movement, Negative: Rales, Rhonchi, Wheezing Heart Exam: Positive: Rate Normal, Normal S1, Normal S2 Abdomen Exam: Positive: Normal bowel sounds, Soft, Negative: Tenderness Extremity Exam: Negative: Edema Neuro Exam: Positive: Normal Speech Assessment /Plan Problems (1) Intractable back pain Status: Acute Response to Treatment: Stable Problem Text: Pt will not qualify for STR at this time, she is functionally doing well with PT, will need to continue PT at this time. She is also not eligible for ARU. Pain controlled on current regimen. Likely discharge plan is home with services and PFS is working on that currently. (2) Neurogenic bladder Status: Chronic Response to Treatment: Stable Problem Text: She is doing ok with straight cathing again, although she feels that our catheters are too stiff and are "scratching" her when she caths. She may bring hers in from home if she prefers them. (3) Diabetes mellitus Status: Chronic Response to Treatment: Stable Problem Text: Continue current sliding scale. Monitor glucose. (4) Neuropathy Status: Chronic Response to Treatment: Stable Problem Text: Continue home meds (5) Anxiety Status: Chronic Response to Treatment: Stable Problem Text: continue home meds (6) DVT prophylaxis Status: Acute Response to Treatment: Stable Problem Text: scd teds Plan/VTE VTE Prophylaxis Ordered?: Yes Plan/Urinary Catheter Urinary Catheter: Place Arguello Reason for insertion/continuin: Other-document below VS, I&O, 24H, Fishbone Vital Signs/I&O Vital Signs Date Time Temp Pulse Resp B/P (MAP) Pulse Ox O2 Delivery O2 Flow Rate FiO2 08/28/17 14:34 18 08/28/17 12:16 Room Air 08/28/17 06:00 97.1 71 120/73 (89) 97 I&O- Last 24 Hours up to 6 AM 08/29/17 05:59 Intake Total 260 ml Balance 260 ml Laboratory Data 24H LABS Laboratory Tests 2 08/27/17 16:23: Bedside Glucose (Misc Panel) 246H 08/27/17 21:06: Bedside Glucose (Misc Panel) 149H 08/28/17 06:51: Nucleated Red Blood Cells % (auto) 0.0 08/28/17 12:09: Bedside Glucose (Misc Panel) 250H CBC/BMP Laboratory Tests 08/28/17 06:51 Red Blood Count 3.32 L, Mean Corpuscular Volume 106.3 H, Mean Corpuscular Hemoglobin 35.8 H, Mean Corpuscular Hemoglobin Concent 33.7, Red Cell Distribution Width 12.8 Ambrose Elias MD Aug 28, 2017 14:46
[2017-08-28 22:00] VITALS: BP 128/66
[2017-08-28] MEDS: ASPIRIN 81 MG ENTERIC TAB PO SCH (22:37)
[2017-08-28] MEDS: DULoxetine 30 MG CAP (CYMBALTA) PO SCH (22:37)
[2017-08-28] MEDS: AMITRIPTYLINE 25 MG TAB PO SCH (22:38)
[2017-08-28] MEDS: LIDOCAINE 5% (LIDODERM) PATCH TD SCH (22:40)
[2017-08-28] MEDS: zolPIDEM TARTRATE 5 MG TAB PO PRN (22:46)
[2017-08-28] MEDS: NABUMETONE 500 MG TAB PO SCH (22:46)
[2017-08-29] MEDS: DICLOFENAC EPOLAMINE 1.3 % PATCH TOP SCH ×2 (08:26→22:13)
[2017-08-29] MEDS: ENOXAPARIN 40 MG/0.4 ML SYRINGE (J1650) SC SCH (08:27)
[2017-08-29] MEDS: HumaLOG INSULIN (NovoLOG) PER UNIT SC SCH ×4 (08:27→21:00)
[2017-08-29] MEDS: LEVEMIR (INSULIN DETEMIR) 1 UNITS/0.01ML SC SCH (08:27)
[2017-08-29] MEDS: MULTIVITAMINS/MINERALS THERAP 1 TAB PO SCH (08:28)
[2017-08-29] MEDS: ATORVASTATIN 20 MG TAB PO SCH (08:28)
[2017-08-29] MEDS: FEXOFENADINE 60 MG TAB PO SCH (08:28)
[2017-08-29] MEDS: busPIRone 10 MG TAB PO SCH ×2 (08:29→22:12)
[2017-08-29] MEDS: GABAPENTIN 400 MG CAP PO SCH ×4 (08:29→22:13)
[2017-08-29] MEDS: PERCOCET 5MG/325MG TAB PO PRN ×3 (08:29→22:11)
[2017-08-29] MEDS: ZONISAMIDE 100 MG CAP (ZONEGRAN) PO SCH ×2 (08:29→22:12)
[2017-08-29] MEDS: oxyBUTYnin 5 MG TAB PO SCH ×2 (08:29→22:10)
[2017-08-29] MEDS: RESTASIS EYE DROPS (PATIENT'S OWN MED) OU SCH ×2 (08:30→22:16)
[2017-08-29] MEDS: ANALGESIC BALM CRM 120 GM TOP SCH ×4 (08:30→21:00)
[2017-08-29] MEDS: NYSTATIN 100,000 UNITS/GM TOPICAL PWD 15 GM TOP SCH ×2 (08:31→21:00)
[2017-08-29] MEDS: **NOTE PATIENT COMMENT** MISC XX SCH (08:32)
[2017-08-29] MEDS: CYCLOBENZAPRINE 10 MG TAB PO PRN ×2 (11:43→22:13)
[2017-08-29 14:00] VITALS: BP 109/59
--- NOTE | 2017-08-29 14:52 | IPNPDOC ---
Subjective Date Seen The patient was seen on 08/29/17. Subjective Chief Complaint/HPI The patient is a 57-year-old female admitted with a reason for visit of Intractable Back Pain. Events since last encounter Patient is doing well today. She reports that she is comfortable. She continues to be seen by PT in the hospital. PFS continues to plan her discharge. Her pain is well controlled today. She continues to maintain a normal diet. She does report loose stools but denies diarrhea. General: Reports: Normal Appetite, Denies: Chills, Night Sweats, Fatigue, Malaise Pulmonary: Denies: Dyspnea, Cough Cardiovascular: Denies: Chest Pain, Palpitations, Orthopnea, Paroxysmal Noc. Dyspnea, Lt Headedness Gastrointestinal: Denies: Nausea, Vomiting, Abdominal Pain, Diarrhea, Constipation Genitourinary: Reports: Other Symptoms (neurogenic bladder, patient self cath) Musculoskeletal: Reports: Other Symptoms Neurological: Reports: Weakness Psych: Reports: Mood Normal, Denies: Depression, Memory Issues Objective Physical Examination General Exam: Positive: Alert, No Acute Distress, Other (was able to walk from the bathroom to her bed safely) Eye Exam: Positive: EOMI, Negative: Sclera icteric ENT Exam: Positive: Atraumatic Chest Exam: Positive: Clear to auscultation, Normal air movement, Negative: Rales, Rhonchi, Wheezing Heart Exam: Positive: Rate Normal, Normal S1, Normal S2 Abdomen Exam: Positive: Normal bowel sounds, Soft, Negative: Tenderness Extremity Exam: Negative: Edema Neuro Exam: Positive: Normal Speech Psych Exam: Positive: Mental status NL, Mood NL Assessment /Plan Problems (1) Intractable back pain Status: Acute Response to Treatment: Stable Problem Text: 08/29/2017- patient's pain is controlled today on current pain regimen. Patient continues to have PT. Reviewed notes from PT today, they recommended discharge to home with PT. As noted yesterday, patient does not qualify for STR. We're awaiting clearance for her to go home with services. 08/29/2017- Pt will not qualify for STR at this time, she is functionally doing well with PT, will need to continue PT at this time. She is also not eligible for ARU. Pain controlled on current regimen. Likely discharge plan is home with services and PFS is working on that currently. (2) Neurogenic bladder Status: Chronic Response to Treatment: Stable Problem Text: 08/29/2017- patient continues to self cath without difficulties. 08/28/2017-She is doing ok with straight cathing again, although she feels that our catheters are too stiff and are "scratching" her when she caths. She may bring hers in from home if she prefers them. (3) Diabetes mellitus Status: Chronic Response to Treatment: Stable Problem Text: 08/29/2017- increased Levemir to 22 units every morning. Continue current sliding scale. Monitor glucose. (4) Neuropathy Status: Chronic Response to Treatment: Stable Problem Text: Continue home meds (5) Anxiety Status: Chronic Response to Treatment: Stable Problem Text: continue home meds (6) DVT prophylaxis Status: Acute Response to Treatment: Stable Problem Text: scd teds Plan/VTE VTE Prophylaxis Ordered?: Yes Plan/Urinary Catheter Urinary Catheter: Place Arguello Reason for insertion/continuin: Other-document below Plan Family Medicine Attending Note: I was present on site to supervise Raj Zarate DO (PGY-2). We discussed the history and exam. I confirmed the brenner elements during my [id number] encounter with the patient. We conferred on the assessment and plan; I agree with the note as documented. (clinical nursing instructor) Disposition At this time, we're awaiting PFS obtain services for patient to return home with services. Patient will continue to have physical therapy on the unit. VS, I&O, 24H, Fishbone Vital Signs/I&O Vital Signs Date Time Temp Pulse Resp B/P (MAP) Pulse Ox O2 Delivery O2 Flow Rate FiO2 08/29/17 13:32 18 08/29/17 08:38 Room Air 08/28/17 22:00 96.7 79 128/66 (86) 95 Laboratory Data 24H LABS Laboratory Tests 2 08/28/17 16:57: Bedside Glucose (Misc Panel) 166H 08/28/17 19:56: Bedside Glucose (Misc Panel) 253H 08/29/17 11:59: RAJ ZARATE DO Aug 29, 2017 14:52 Ambrose Elias MD Sep 10, 2017 21:02
[2017-08-29 22:00] VITALS: BP 122/76
[2017-08-29] MEDS: NABUMETONE 500 MG TAB PO SCH (22:10)
[2017-08-29] MEDS: DULoxetine 30 MG CAP (CYMBALTA) PO SCH (22:10)
[2017-08-29] MEDS: AMITRIPTYLINE 25 MG TAB PO SCH (22:11)
[2017-08-29] MEDS: ASPIRIN 81 MG ENTERIC TAB PO SCH (22:12)
[2017-08-29] MEDS: LIDOCAINE 5% (LIDODERM) PATCH TD SCH (22:14)
[2017-08-29] MEDS: zolPIDEM TARTRATE 5 MG TAB PO PRN (22:21)
[2017-08-30] MEDS: PERCOCET 5MG/325MG TAB PO PRN ×3 (04:56→12:51)
[2017-08-30 06:00] VITALS: BP 118/72
[2017-08-30] MEDS: ENOXAPARIN 40 MG/0.4 ML SYRINGE (J1650) SC SCH (08:26)
[2017-08-30] MEDS: HumaLOG INSULIN (NovoLOG) PER UNIT SC SCH ×2 (08:26→12:52)
[2017-08-30] MEDS: **NOTE PATIENT COMMENT** MISC XX SCH (08:27)
[2017-08-30] MEDS: DICLOFENAC EPOLAMINE 1.3 % PATCH TOP SCH (08:27)
[2017-08-30] MEDS: NYSTATIN 100,000 UNITS/GM TOPICAL PWD 15 GM TOP SCH (08:27)
[2017-08-30] MEDS: ZONISAMIDE 100 MG CAP (ZONEGRAN) PO SCH (08:27)
[2017-08-30] MEDS: ATORVASTATIN 20 MG TAB PO SCH (08:27)
[2017-08-30] MEDS: FEXOFENADINE 60 MG TAB PO SCH (08:28)
[2017-08-30] MEDS: CYCLOBENZAPRINE 10 MG TAB PO PRN (08:28)
[2017-08-30] MEDS: MULTIVITAMINS/MINERALS THERAP 1 TAB PO SCH (08:28)
[2017-08-30] MEDS: busPIRone 10 MG TAB PO SCH (08:28)
[2017-08-30] MEDS: oxyBUTYnin 5 MG TAB PO SCH (08:28)
[2017-08-30] MEDS: GABAPENTIN 400 MG CAP PO SCH ×2 (08:28→12:50)
[2017-08-30] MEDS: ANALGESIC BALM CRM 120 GM TOP SCH ×2 (08:30→12:52)
[2017-08-30] MEDS: RESTASIS EYE DROPS (PATIENT'S OWN MED) OU SCH (08:31)
[2017-08-30] MEDS ORDERED: LEVEMIR (INSULIN DETEMIR) 1 UNITS/0.01ML SC SCH (09:00)
[2017-08-30 14:00] VITALS: BP 115/60
[2017-08-30] MEDS ORDERED: DICL13PA TOP (14:37)
[2017-08-30] MEDS ORDERED: PERCOCET PO (14:37)
--- NOTE | 2017-08-30 20:36 | IPNPDOC ---
Subjective Date Seen The patient was seen on 08/30/17. Subjective Chief Complaint/HPI The patient is a 57-year-old female admitted with a reason for visit of Intractable Back Pain. Events since last encounter Patient was seen at bedside today. She reports some increased leg pain and lower back pain last night which woke her up. She was given pain medications and she fell back asleep. States that her lower back and leg pain had normalized today. She tells me that the episode last night was not out of the ordinary. Today, patient is anxiously awaiting to be discharged home. She said that she has a long hallway at home that she is able to mobilize back-and- forth. She is also anxious to see her dog. Constitutional: Denies: Chills, Fever, Night Sweats Pulmonary: Denies: Dyspnea, Cough Cardiovascular: Denies: Chest Pain, Palpitations, Orthopnea, Paroxysmal Noc. Dyspnea, Lt Headedness Gastrointestinal: Denies: Nausea, Vomiting, Abdominal Pain, Diarrhea, Constipation Genitourinary: Reports: Other Symptoms (patient self catheterizes) Musculoskeletal: Reports: Back Pain, Leg Pain Neurological: Reports: Weakness (lower extremities) Objective Physical Examination General Exam: Positive: Alert, No Acute Distress, Other (was able to walk from the bathroom to her bed safely) Eye Exam: Positive: EOMI, Negative: Sclera icteric ENT Exam: Positive: Atraumatic Chest Exam: Positive: Clear to auscultation, Normal air movement, Negative: Rales, Rhonchi, Wheezing Heart Exam: Positive: Rate Normal, Normal S1, Normal S2 Abdomen Exam: Positive: Normal bowel sounds, Soft, Negative: Tenderness Extremity Exam: Negative: Edema Neuro Exam: Positive: Normal Speech Psych Exam: Positive: Mental status NL, Mood NL Assessment /Plan Problems (1) Intractable back pain Status: Acute Response to Treatment: Stable Problem Text: 08/30/2017- patient's pain is well tolerated today. She states that the increase in pain meds benefitting her. She does not think the lidocaine patches helps her symptoms. 08/29/2017- patient's pain is controlled today on current pain regimen. Patient continues to have PT. Reviewed notes from PT today, they recommended discharge to home with PT. As noted yesterday, patient does not qualify for STR. We're awaiting clearance for her to go home with services. 08/28/2017- Pt will not qualify for STR at this time, she is functionally doing well with PT, will need to continue PT at this time. She is also not eligible for ARU. Pain controlled on current regimen. Likely discharge plan is home with services and PFS is working on that currently. (2) Neurogenic bladder Status: Chronic Response to Treatment: Stable Problem Text: 08/29/2017- patient continues to self cath without difficulties. 08/28/2017-She is doing ok with straight cathing again, although she feels that our catheters are too stiff and are "scratching" her when she caths. She may bring hers in from home if she prefers them. (3) Diabetes mellitus Status: Chronic Response to Treatment: Stable Problem Text: 08/29/2017- increased Levemir to 22 units every morning. Continue current sliding scale. Monitor glucose. (4) Neuropathy Status: Chronic Response to Treatment: Stable Problem Text: Continue home meds (5) Anxiety Status: Chronic Response to Treatment: Stable Problem Text: continue home meds (6) DVT prophylaxis Status: Acute Response to Treatment: Stable Problem Text: scd teds Plan/VTE VTE Prophylaxis Ordered?: Yes Plan/Urinary Catheter Urinary Catheter: Place Arguello Reason for insertion/continuin: Other-document below Plan Discharge with services today. VS, I&O, 24H, Fishbone Vital Signs/I&O Vital Signs Date Time Temp Pulse Resp B/P (MAP) Pulse Ox O2 Delivery O2 Flow Rate FiO2 08/30/17 14:00 97.4 82 16 115/60 (78) 93 08/30/17 06:00 Room Air Laboratory Data 24H LABS Laboratory Tests 2 08/29/17 21:06: Bedside Glucose (Misc Panel) 167H GME ATTESTATION GME ATTESTATION My preceptor for this patient encounter was physically present in the building during the encounter and was fully available. As needed, all aspects of the patient interview, examination, medical decision making process, and medical care plan development were reviewed and approved by the preceptor. Preceptor is aware and concurs with the plan as stated in the body of this note and will attest to such by his/her cosignature. ATTENDING NOTE Family Medicine Attending Note: I was present on site to supervise Raj Zarate DO (PGY-2). We discussed the history and exam. I confirmed the brenner elements during my [id number] encounter with the patient. We conferred on the assessment and plan; I agree with the note as documented. (administrative tech) RAJ ZARATE DO Aug 30, 2017 19:58 Ambrose Elias MD Sep 10, 2017 21:21
--- NOTE | 2017-08-31 15:11 | ECWPNPC ---
PATIENT NAME: SANIYA HOWELL : 1960 GENDER: FEMALE VISIT DATE: 08/20/2017 DISCHARGE DATE: 08/20/17 0000 VISIT LOCKED DATE TIME: PHYSICIAN: CLAUDIA ALLISON PHYSICIAN PAGER NO: [phone] RESOURCE: CLAUDIA ALLISON REASON FOR APPOINTMENT 1. INPATIENT, SI 5 [place] HISTORY OF PRESENT ILLNESS HISTORY OF PRESENT ILLNESS: PAIN THE PATIENT DESCRIBES THE PAIN... FALL RISK SCREENING: SCREENING :NO FALLS IN THE PAST YEAR CURRENT MEDICATIONS TAKING ASTEPRO 0.15 2 SPRAYS SPRAY DIRECTED NASALLY TWICE A DAY, NOTES: NOT INPATIENT TAKING EMELYN ALLERGY 180 MG TABLET 1 TABLET ORALLY ONCE A DAY, NOTES: 08/20/17825 TAKING LIPITOR 20 MG TABLET 1 TABLET ORALLY ONCE A DAY, NOTES: 08/20/17826 TAKING VITAMIN B-12 500 MCG TABLET 1 TABLET ORALLY ONCE A DAY, NOTES: NOT INPATIENT TAKING CYMBALTA 60 MG CAPSULE DELAYED RELEASE PARTICLES 2 CAPSULES ORALLY ONCE A DAY DR CARRERO, NOTES: 08/20/172119 TAKING RIZATRIPTAN BENZOATE 10 MG TABLET 1 TABLET NEEDED ONE TIME ORALLY ONCE A DAY NEEDED, NOTES: 08/20/17 TAKING AMITRIPTYLINE HCL 25 MG TABLET 1 TABLET ORALLY ONCE A DAY, NOTES: 08/20/172119 TAKING ZONISAMIDE 50 MG CAPSULE 1 CAPSULE ORALLY TWICE A DAY, NOTES: 08/20/17825 TAKING VICTOZA INSULIN INJECTION 1.2 MG SUBCUTANEOUSLY ONCE A DAY, NOTES: 08/19/17 TAKING ONE TOUCH ULTRA 2 LANCET - LANCET 1 SUBCUTANEOUSLY TWICE A DAY DX 250.01 TAKING ONE TOUCH ULTRA TEST STRIPS - STRIPS 1 SUBCUTANEOUSLY TWICE A DAY 250.01 TAKING CALCIUM 600+D 600-400 MG-UNIT TABLET 1 TAB(S) ORALLY TWICE DAILY, NOTES: NOT INPATIENT TAKING TRIAMCINOLONE ACETONIDE 0.1 % OINTMENT 1 APPLICATION TO AFFECTED AREA EXTERNALLY TWICE A DAY, NOTES: NOT INPATIENT TAKING NYSTATIN POWDER 939352 UNIT POWDER APPLY SPARINGLY TOPICALLY GROIN, ABD, BREASTS TWICE A DAY PRN PRURITIS, REDNESS, RASH, IRRITATION, NOTES: NOT INPATIENT TAKING IMODIUM A-D 2 MG TABLET 1 TABLET ORALLY 8 TIME(S) A DAY, NOTES: NOT INPATIENT TAKING NEEDLE (DISP) 1 EACH 250.01 TYPE 2 DIABETES SUBCUTANEOUSLY TWICE A DAY TAKING Q-PAP 325 MG TABLET 1 TABLET NEEDED ORALLY EVERY 6 HRS, NOTES: NOT INPATIENT TAKING MIRALAX 17 GM POWDER 17 GRAMS BY MOUTH MIX WITH LIQUID ONCE A DAY NEEDED, NOTES: NOT INPATIENT TAKING LACTULOSE 10 GM/15ML SOLUTION 15 ML NEEDED ORALLY BID, NOTES: NOT INPATIENT TAKING MAY HAVE ___ _ BED SIDE RAIL _ ONCE DAILY TAKING DEPEND UNDERWEAR LARGE DX: 596.54 MISCELLANEOUS DIRECTED _N31.9 FOUR TIMES A DAY TAKING VENTOLIN HFA 108 (90 BASE) MCG/ACT AEROSOL SOLUTION 2 PUFFS NEEDED INHALATION EVERY 6 HRS TAKING RESTASIS 0.05 % EMULSION 1 NULL INTO AFFECTED EYE OPHTHALMIC TWICE A DAY TAKING CITRACAL SLOW RELEASE 600-40-500 MG-MG-UNIT TABLET EXTENDED RELEASE 24 HOUR 1 TAB ORALLY ONCE DAILY, NOTES: NOT INPATIENT TAKING PEN NEEDLES 5/16" 31G X 8 MM MISCELLANEOUS 1 SUBCUTANEOUS DAILY W/VICTOZA PEN ICD E11.9 TAKING MAY HAVE - - REPLACEMENT POWER CORD FOR ELECTRIC SCOOTER (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) _ _DX: M47.816, NOTES: ANGIE @ [phone] TAKING FEXOFENADINE HCL 180 MG TABLET TAKE ONE TABLET BY MOUTH EVERY DAY ORAL DAILY, NOTES: 08/19/172119 TAKING BUSPAR 30MG TABLET 1 TABLET ORALLY TWICE A DAY, NOTES: 08/20/17825 TAKING OXYBUTYNIN CHLORIDE 5 MG TABLET 1 TABLET ORALLY TWICE A DAY TAKING ZOLPIDEM TARTRATE 5 MG TABLET 1 TABLET AT BEDTIME ORALLY AT BEDTIME PRN INSOMNIA, NOTES: 08/19/172129 TAKING MICONAZOLE 3 200 MG SUPPOSITORY 1 SUPPOSITORY AT BEDTIME VAGINAL ONCE A DAY X 3 DAYS C FLARES, NOTES: NOT INPATIENT TAKING OMEPRAZOLE 40MG 40 MG TABLET 1 TABLET BY MOUTH AC BID TAKING ASA 81 MG TABLET 1 TAB ORAL DAILY, NOTES: 08/19/172119 TAKING LASIX 20 MG TABLET 1 TABLET MWF ORALLY ONCE A DAY TAKING VOLTAREN 1 % GEL 4 GMS TO CERVICAL/LUMBAR SPINE TRANSDERMAL FOUR TIMES A DAY ` TAKING GABAPENTIN 600 MG TABLET 2 TABLET ORALLY THREE TIMES A DAY, NOTES: 08/20/17825 TAKING CLOTRIMAZOLE 3 2 % CREAM 1 APPLICATION AT BEDTIME VAGINAL ONCE A DAY TAKING LATEX FREE GLOVES _ _ DIRECTED N31.9 NEEDED TAKING METFORMIN HCL 1000 MG TABLET 1 TAB(S) ORALLY TWICE A DAY TAKING METHOCARBAMOL 500 MG TABLET 1 TABLETS ORALLY THREE TIMES DAILY TAKING CATHETER STRAIGHT CATHETER DISPOSABLE STRAIGHT # 14 FR CATHETER 7 PER DAY TAKING HYDROCODONE-ACETAMINOPHEN 7.5-325 MG TABLET 1 TABLET NEEDED ORALLY EVERY 6 HRS, NOTES: 08/20/17 0535 TAKING LOVENOX 40 MG/0.4ML SOLUTION 0.4 ML SUBCUTANEOUS ONCE A DAY, NOTES: 08/19/17 0900 NOT-TAKING BACTRIM 400-80 MG TABLET 1 TAB ORALLY AT BEDTIME MEDICATION LIST REVIEWED AND RECONCILED WITH THE PATIENT PAST MEDICAL HISTORY ANEMIA SECONDARY TO B12 DEFICIENCY AND CHRONIC KIDNEY DISEASE//CHRONIC MACROCYTOSIS S ANEMIA- 03/1999 MCV 106 T2DM INSULIN REQUIRING-01/2016 SPECT-LOW RISK-JACKY NEUROGENIC BLADDER STATUS POST LAMINECTOMY -PATIENT PERFORMS CLEAN INTERMITTENT SELF CATHETERIZATION/RECURRENT UTI DJD LUMBOSACRAL SPINE WITH SECONDARY BILATERAL LOWER EXTREMITY RADICULOPATHY-NOVEMBER 2011 [facility]-MODERATE CHRONIC LEFT L5/S1 RADICULOPATHY, MILD CHRONIC RIGHT L5/S1 RADICULOPATHY-[facility] NAFLD IBS, MIXED TYPE GERD VASOMOTOR SYMPTOMS OBESITY, MORBID STATUS POST GASTRIC BYPASS 2004 AT [facility], DR. DC DYSPEPSIA/GERD VITAMIN D DEFICIENCY CHRONIC INTERTRIGINOUS CANDIDIASIS CHRONIC KIDNEY DISEASE STAGE III GJ ANASTAMOSIS AND JEJUNAL LIMB ULCER, INTACT GASTRIC POUCH, NORMAL ESOPHAGUS, INADEQUATE COLONIC PREP BY EGD/COLON-DR. VIVAR ENEDOSCOPY ASS. 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 ELKHALLY ALLERGIES CIPRO: ANAPHYLAXIS: ALLERGY LATEX (FOR ALLERGY USE ONLY): RASH: ALLERGY DIFLUCAN: HIVES: ALLERGY REVIEW OF SYSTEMS REVIEWED BY: PROVIDER: . CONSTITUTIONAL: ANY CHANGE IN YOUR MEDICAL CONDITION? YES PT CURRENTLY BEING TREATED INPATIENT FOR BACK PAIN . CHILLS NO . FEVER NO . INFECTION: DO YOU HAVE NEW INFECTIONS? NO . DO YOU HAVE HISTORY OF MRSA? NO . MUSCULOSKELETAL: ANY NEW PATTERNS OF PAIN OR NUMBNESS? YES PT REPORTS A SUDDEN INCREASE IN BACK PAIN, FELL SATURDAY, WENT TO ED, HAD XRAYS AND WAS DISCHARGED. SATURDAY PAIN INCREASED, AND CAME BACK TO ED AND WAS ADMITTED. . GASTROENTEROLOGY: ANY NEW CHANGE IN BOWEL CONTROL? NO . GENITOURINARY: ANY NEW CHANGE IN BLADDER CONTROL? YES PT HAS INDWELLING URINARY CATHETER. . IS THERE A CHANCE YOU COULD BE ? NO . HEMATOLOGY/LYMPH: DO YOU TAKE ANY BLOOD THINNERS? (FOR EXAMPLE- COUMADIN, PLAVIX, AGGRENOX, PLATEL, PRADAXA, OR XARELTO) YES . WHEN WAS YOUR LAST DOSE? DATE: TIME: LOVENOX 08/19/[address] ALLISON NOTIFIED . NEUROLOGY: HAVE YOU FALLEN IN THE PAST 6 MONTHS? YES PT REPORTS HER LEG GAVE OUT, SHE FELL DOWN ONTO LEFT SIDE. . ANY NEW EXTREMITY NUMBNESS OR WEAKNESS? NO . CARDIOLOGY: DO YOU HAVE A PACEMAKER OR DEFIBRILLATOR? NO . RESPIRATORY: HAVE YOU BEEN SICK IN THE PAST WEEK? NO . FEVER NO . FLU LIKE SYMPTOMS? NO . COUGH NO . INTEGUMENTARY: DO YOU HAVE ANY RASHES OR OPEN SORES? YES PT HAS OPEN ULCER ON BUTTOCKS, DR. ALLISON NOTIFIED AND IN TO SEE AREA. . ALLERGIC/IMMUNO: ARE YOU ALLERGIC TO SHELLFISH OR IV DYE? NO . ANY NEW ALLERGIES? NO . PSYCHIATRIC: DO YOU HAVE THOUGHTS OF HURTING YOURSELF OR SOMEONE ELSE? NO . ARE YOU ABUSED, NEGLECTED, OR IN AN UNSAFE ENVIRONMENT? NO . ENDOCRINOLOGY: ARE YOU DIABETIC? NO . OTHER: DO YOU NEED ANY PRESCRIPTIONS? NO . IF YES, PLEASE LIST: ____ . ANY NEW PROBLEMS WITH YOUR MEDICATIONS? NO . WHEN DID YOU LAST EAT? ____08/19/17 . WHEN DID YOU LAST DRINK? ____08/19/17 . WHAT DID YOU LAST DRINK? ____WATER . NAME OF PERSON DRIVING YOU HOME? ____INPATIENT . DO YOU HAVE ANY OTHER QUESTIONS OR CONCERNS NO . VITAL SIGNS WT 210 LBS, HT 63.5 IN, BMI 36.61 INDEX, BP 105/53 MM HG, HR 82 /MIN, RR 18 /MIN, TEMP 97.3 F, OXYGEN SAT % 95%, NA INITIALS SC 14:30, REVIEWED BY: JOSSELYN. ASSESSMENTS SACROILIITIS, NOT ELSEWHERE CLASSIFIED - M46.1 (PRIMARY) PROCEDURES PN SI PRE PROCEDURE DIAGNOSIS SACROILIITIS, SACROILIAC JOINT DYSFUNCTION POST PROCEDURE DIAGNOSIS SACROILIITIS, SACROILIAC JOINT DYSFUNCTION PROCEDURE BILATERAL SACROILIAC JOINT BLOCK SURGEON DR. CLAUDIA ALLISON DEVOPS ENGINEER NONE ANESTHESIA LOCAL PRE PROCEDURE NOTE PATIENT WITH HISTORY OF CHRONIC LOW BACK PAIN. I EVALUATED THE PATIENT AND REVIEWED THE CHART. I WENT OVER THE RISKS, ALTERNATIVES, AND BENEFITS ASSOCIATED WITH THIS PROCEDURE. THE PATIENT WOULD LIKE TO PROCEED AND GAVE CONSENT TO PERFORM THE PROCEDURE. THE PATIENT DENIES UNEXPLAINABLE WEIGHT LOSS, FEVER, CHILLS, OR NEW CHANGES IN URINARY OR BOWEL CONTROL DESCRIPTION OF PROCEDURE THE PATIENT WAS BROUGHT TO THE PROCEDURE ROOM AND PLACED IN THE PRONE POSITION. THE LUMBOSACRAL AREA WAS CLEANED WITH CHLORAPREP SOLUTION AND DRAPED ASEPTICALLY. THE PROCEDURE WAS DONE UNDER STERILE CONDITIONS. I CHECKED LATERALITY AND THE LEVEL WHERE THE PROCEDURE WAS GOING TO BE PERFORMED WITH THE PATIENT AND THE SUPPORTING STAFF AT THE MOMENT OF THE TIME OUT IN THE PROCEDURE ROOM. UNDER FLUOROSCOPIC GUIDANCE, TARGET POINT WAS SELECTED AT THE LOWER BORDER OF THE RIGHT AND LEFT SACROILIAC JOINT. TARGET POINT WAS SELECTED AFTER MEDIAL ROTATION AND TILT OF THE MAGNIFIER OF THE C-ARM. LIDOCAINE WAS USED TO NUMB THE SKIN AND SUBCUTANEOUS TISSUE BELOW IT. A SPINAL NEEDLE, 22-GAUGE, WAS ADVANCED UNDER FLUOROSCOPIC GUIDANCE AND FOLLOWING PATIENT FEEDBACK UNTIL THE TARGET AREA WAS TOUCHED. THE POSITION OF THE NEEDLE WAS VERIFIED WITH AP AND LATERAL VIEWS. AFTER PROPER POSITION OF THE NEEDLE WAS ACHIEVED, ISOVUE M DYE 30%, 0.25 ML, WAS INJECTED SHOWING SPREAD OF THE DYE. THEN, A SOLUTION OF 20 MG OF KENALOG WAS INJECTED IN RIGHT JOINT WITH 3 ML OF BUPIVACAINE 0.125%. THERE WAS NO EVIDENCE OF BLOOD, PARESTHESIA OR CEREBROSPINAL FLUID DURING THE PROCEDURE. THE PATIENT WAS SENT TO THE RECOVERY ROOM. THE PATIENT WAS MOVING THE EXTREMITIES AND DOING WELL. THERE WAS NO COMPLICATION DURING THE PROCEDURE. FLUOROSCOPY TIME WAS 30 SECONDS POST PROCEDURE NOTE THE PATIENT WILL BE SEEN IN A FOLLOW UP IN THE NEXT FEW WEEKS. INSTRUCTIONS WERE GIVEN, QUESTIONS WERE ANSWERED, AND THE PATIENT EXPRESSED UNDERSTANDING AND AGREED WITH THE PLAN. I, MARIA L ASHER, DOCUMENTED THE ABOVE INFORMATION ACTING A SCRIBE FOR DR. ALLISON. I HAVE REVIEWED THE ABOVE DOCUMENT, WRITTEN BY MARIA L SMALL AND I VERIFY THAT IT IS ACCURATE DIAGNOST[facility] FLUORO GUIDANCE (PAIN)[id number] PROCEDURE CODES 29235 INJECT SACROILIAC JOINT, MODIFIERS: 50 [id number] RADXPS IN END [id number] PXD DISPOSITION & COMMUNICATION FOLLOW UP 3 WEEKS ELECTRONICALLY SIGNED BY CLAUDIA ALLISON MD ON 08/21/2017 AT 12:54 PM EDT DISCLAIMER : THIS IS A VISIT SUMMARY EXTRACTED FROM THE [employer] CHART. IT IS NOT A COPY OF THE [employer] PROGRESS NOTE. MTDD
--- NOTE | 2017-10-08 14:57 | DS.PDOC ---
Discharge Summary General Date of Admission Aug 15, 2017 at 20:55 Date of Discharge 08/30/2017 Primary Care Physician: Andrew Beck M.D. Attending Physician: Ambrose Elias MD Specialist/Consultants [facility] Discharge Summary PROCEDURES PERFORMED DURING STAY:None ADMITTING DIAGNOSES: Intractable back pain DISCHARGE DIAGNOSES: Back pain, neurogenic bladder, diabetes mellitus, anxiety COMPLICATIONS/CHIEF COMPLAINT: Intractable Back Pain. BRIEF HISTORY/ HOSPITAL COURSE: This is a 57-year-old female who presented to the emergency department at the time of admission with complaints of low back pain radiating down the back of both legs. Patient fell 1 week prior to admission, and was evaluated in the emergency department. She had been unable to take care of herself after the fall. Patient has history of neurogenic bladder, which she was having difficulties with self catheterization because of her back pain. Patient was seen and evaluated by physical therapy during the course of admission. Her pain medications were also adjusted for her comfort. Patient was able to self cath without difficulties on day of discharge. She was also able to maintain acceptable level of pain with the adjustment of her pain medications. She also was set up with the proper services for her to continue physical therapy and also home services when she was discharged. DISCHARGE MEDICATIONS: Please see below. ALLERGIES: Please see below. PHYSICAL EXAMINATION ON DISCHARGE: Please see progress note on day of discharge. LABORATORY DATA: Please see below. IMAGING: Lumbar MRI 08/15/17: No evidence of central canal narrowing or neural foraminal stenosis. Minimal disc bulging at L2/L3. Surgical fusion changes at L4 /L5 are grossly intact. PROGNOSIS: Fair ACTIVITY: As tolerated DIET: Consistent Carb. DISCHARGE PLAN: Discharge home with home services DISPOSITION: 01 Home, Self-Care. DISCHARGE INSTRUCTIONS: F/u with PCP as scheduled. ITEMS TO FOLLOWUP ON ON OUTPATIENT: Home services are pending. DISCHARGE CONDITION: Stable. TIME SPENT ON DISCHARGE: Greater than 30 minutes. Discharge Medications Scheduled (Restasis) 0.05 % Emu, 1 DROP OU BID, (Reported) Amitriptyline HCl (Amitriptyline HCl) 25 Mg Tab, 25 MG PO QHS, (Reported) Aspirin (Aspirin EC) 81 Mg Tabec, 81 MG PO QHS, (Reported) Atorvastatin Calcium (Atorvastatin Calcium) 20 Mg Tab, 20 MG PO DAILY, (Reported ) Buspirone HCl (Buspirone HCl) 30 Mg Tab, 30 MG PO BID, (Reported) Calcium/Vitamin D (Calcium 600 + D 600-400 mg-Unit) 1 Tab Tab, 1 TAB PO DAILY, ( Reported) Cyanocobalamin (Vitamin B-12) 500 Mcg Tab, 500 MCG PO DAILY, (Reported) Duloxetine Hcl (Duloxetine HCl) 60 Mg Cap, 60 MG PO QHS, (Reported) TAKES WITH 30MG FOR 90MG TOTAL Duloxetine Hcl (Duloxetine HCl) 30 Mg Cap, 30 MG PO QHS, (Reported) TAKES WITH 60MG FOR 90MG TOTAL Fexofenadine Hydrochloride (Kim Allergy) 180 Mg Tab, 180 MG PO DAILY, ( Reported) Fish Oil (Fish Oil) 1,000 Mg Cap, 1,000 MG PO BID, (Reported) Gabapentin (Gabapentin) 800 Mg Tab, 800 MG PO QID, (Reported) Hydroxyzine Pamoate (Hydroxyzine Pamoate) 25 Mg Cap, 25 MG PO BID, (Reported) Liraglutide (Victoza) 18 Mg/3 Ml Inj, 1.2 MG SC QPM, (Reported) Metformin Hydrochloride (Metformin HCl) 1,000 Mg Tab, 1,000 MG PO BID, (Reported ) Multivitamins *[facility] STOCKED* (Thera M Plus *[facility] STOCKED*) 1 Tab Tab, 1 TAB PO DAILY, (Reported) Omeprazole (Omeprazole) 40 Mg Cap, 40 MG PO BID, (Reported) Oxybutynin Chloride (Oxybutynin Chloride) 5 Mg Tab, 5 MG PO BID, (Reported) Trimethoprim/Sulfamethoxazole (Bactrim 400-80 mg) 1 Tab Tab, 1 TAB PO QHS, ( Reported) Vitamin D (Vitamin D) 2,000 Unit Cap, 2,000 UNIT PO DAILY, (Reported) Zonisamide (Zonisamide) 100 Mg Cap, 100 MG PO BID, (Reported) Scheduled PRN (Clotrimazole) 2 % Cre, 1 DOSE TOP BID PRN for ULCERS, (Reported) APPLY TO CHEEKS AND BUTTOCKS Diclofenac Epolamine (Flector) 1 Patch Tdsy, 1 PATCH TOP Q12H PRN for PAIN Docusate Sodium (Colace) 100 Mg Cap, 100 MG PO BID PRN for CONSTIPATION, ( Reported) Methocarbamol (Methocarbamol) 500 Mg Tab, 500 MG PO TID PRN for MUSCLE SPASMS, ( Reported) Naproxen (Naproxen Dr) 500 Mg Tab, 500 MG PO BID PRN for PAIN, (Reported) Oxycodone/Acetaminophen (Percocet 5MG/325MG Tablet) 1 Tab Tab, 2 TAB PO Q4HP PRN for SEVERE PAIN (PS 8-10) Polyethylene Glycol (Peg 3350) 1 Pkt Pow, 1 PKT PO DAILY PRN for CONSTIPATION, ( Reported) Rizatriptan Benzoate (Rizatriptan Benzoate) 10 Mg Tab, 10 MG PO ASDIRECTED PRN for MIGRAINE, (Reported) Zolpidem Tartrate (Zolpidem Tartrate) 5 Mg Tab, 5 MG PO QHS PRN for SLEEP, ( Reported) Allergies Coded Allergies: Latex (Unverified Allergy, Intermediate, 02/10/13) Fluconazole (Unverified Allergy, Unknown, HIVES, 08/16/16) Quinolones (Verified Allergy, Unknown, CIPRO, 02/10/13) [place] (Verified Allergy, Unknown, 02/10/13) GME ATTESTATION GME ATTESTATION My preceptor for this patient encounter was physically present in the building during the encounter and was fully available. As needed, all aspects of the patient interview, examination, medical decision making process, and medical care plan development were reviewed and approved by the preceptor. Preceptor is aware and concurs with the plan as stated in the body of this note and will attest to such by his/her cosignature. MIKE BEDOLLA DO Sep 10, 2017 10:06
== END 2017-08-30 16:50 | disposition home health service (06) | DRG 552 ==
LOC: M ED 11:43 → M ED INP 20:55 → M MS4PR 23:16 → M MS5PR 08-16 13:20
PROVIDERS: ADMIT Internal Medicine; ATTEND Family Medicine
DX: M54.5 Low back pain (principal); E11.9 Type 2 diabetes mellitus without complications; F41.9 Anxiety disorder, unspecified; N31.9 Neuromuscular dysfunction of bladder, unspecified; Z79.899 Other long term (current) drug therapy; Z79.82 Long term (current) use of aspirin; Z88.8 Allergy status to other drugs, medicaments and biological substances; Z91.040 Latex allergy status; Z91.018 Allergy to other foods; F32.9 Major depressive disorder, single episode, unspecified; G47.00 Insomnia, unspecified

== ENCOUNTER → 2017-09-05 | Outpatient (REF) | payer MEDICARE, MEDICAID ==
[~2017-09-05] MED LIST changes: +ASPI81TAEC PO; +BACT400T PO; +DICL13PA TOP; +DULO1CAP2 PO; +FISH1000 PO; +HYDR-3716 PO; +HYDR1CAP25 PO; +OMEP40CA2 PO; +PEG1POW PO; +PERCOCET PO; +VICT18IN SC; +VIST25CA PO; +VITA200016 PO; +VITA500T3 PO; +ZOLP5TAB PO; +ZONI100C2 PO
[2017-09-05 15:49] LABS: BASO % 0.3 % (0.0-1.0); EOS # 0.3 10^3/uL (0.0-0.50); IMMATURE GRANULOCYTE % 0.5 % (0-0); LYMPH # 2.7 10^3/uL (1.5-4.5); LYMPH % 26.8 % (24.0-44.0); MEAN CORPUSCULAR HEMOGLOBIN 36.2 pg (27.0-33.0); MEAN CORPUSCULAR HGB CONC 33.7 g/dl (32.0-36.5); MEAN CORPUSCULAR VOLUME 107.5 fl (80.0-96.0); MONO # 0.9 10^3/uL (0.0-0.8); MONO % 9.2 % (0.0-5.0); NEUTROPHILS % 60.2 % (36.0-66.0); PLATELET COUNT, AUTOMATED 301 10^3/uL (150-450); RED CELL DISTRIBUTION WIDTH 13.5 % (11.5-14.5)
[2017-09-05 18:15] LABS: VITAMIN B12 LEVEL 431 PG/ML (247-911)
[2017-09-05 18:41] LABS: FERRITIN 62 NG/ML (8-252); PERCENT SATURATION 43.9 % (13.2-45.0); TOTAL IRON BINDING CAPACITY 392 UG/DL (250-450)
[2017-09-06 11:03] LABS: PRETREATED FOLATE FOR RBCFOL 14.5 NG/ML
[2017-09-18 08:06] LABS: BENZODIAZEPINES, URINE SCREEN Negative ng/mL (Cutoff=200); METHADONE, URINE SCREEN Negative ng/mL (Cutoff=300); OPIATES, URINE Positive ng/mL (Cutoff=300); OXYCODONE URINE Positive (.); pH, URINE 5.6 (4.5-8.9)
== END ==
LOC: M SFHCPLAZ 14:07
PROVIDERS: ATTEND Family Medicine
DX: E11.3299 Type 2 diabetes mellitus wit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, unspecified eye (principal); E53.8 Deficiency of other specified B group vitamins; Z79.899 Other long term (current) drug therapy
CPT/HCPCS: 36415; 80307; 81001; 82043; 82607; 82728; 82747; 83036; 83550; 85025; 86334; 87086; G0463

== ENCOUNTER → 2017-09-19 | Outpatient (REF) | payer MEDICARE, MEDICAID | LOC: M SFHCPLAZ 13:08 | PROVIDERS: ATTEND Family Medicine | DX: E11.3299 Type 2 diabetes mellitus wit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, unspecified eye (principal) ==

== ENCOUNTER → 2018-01-28 | Outpatient (REF) | payer MEDICARE, MEDICAID ==
[2018-01-28 12:34] LABS: BASO % 0.6 % (0.0-1.0); EOS # 0.5 10^3/uL (0.0-0.50); EOS % 6.5 % (0.0-3.0); HEMATOCRIT 38.4 % (36.0-47.0); HEMOGLOBIN 13.2 g/dl (12.0-16.0); IMMATURE GRANULOCYTE % 0.7 % (0-3.0); LYMPH # 2.1 10^3/uL (1.5-4.5); LYMPH % 28.5 % (24.0-44.0); MEAN CORPUSCULAR HEMOGLOBIN 36.5 pg (27.0-33.0); MEAN CORPUSCULAR HGB CONC 34.4 g/dl (32.0-36.5); MEAN CORPUSCULAR VOLUME 106.1 fl (80.0-96.0); MONO # 0.6 10^3/uL (0.0-0.8); MONO % 7.9 % (0.0-5.0); NEUTROPHILS # 4.1 10^3/uL (1.8-7.7); NEUTROPHILS % 55.8 % (36.0-66.0); PLATELET COUNT, AUTOMATED 259 10^3/uL (150-450); RED BLOOD COUNT 3.62 10^6/uL (4.00-5.40); RED CELL DISTRIBUTION WIDTH 12.4 % (11.5-14.5); WHITE BLOOD COUNT 7.3 10^3/uL (4.0-10.0)
[2018-01-28 13:08] LABS: ALBUMIN 3.2 GM/DL (3.2-5.2); ALBUMIN/GLOBULIN RATIO 0.86 (1.00-1.93); ALKALINE PHOSPHATASE 152 U/L (45-117); ALT/SGPT 26 U/L (12-78); ANION GAP 10 MEQ/L (8-16); AST/SGOT 38 U/L (7-37); BILIRUBIN,TOTAL 0.9 MG/DL (0.2-1.0); BLOOD UREA NITROGEN 12 MG/DL (7-18); C REACTIVE PROTEIN QUANTITATIV 0.54 MG/DL (0.00-0.30); CALCIUM LEVEL 8.4 MG/DL (8.5-10.1); CARBON DIOXIDE LEVEL 25 MEQ/L (21-32); CHLORIDE LEVEL 108 MEQ/L (98-107); CHOLESTEROL LEVEL 114 MG/DL (<200); CHOLESTEROL RISK RATIO 2.923 (<5); CPK CREATINE PHOSPHOKINASE 53 U/L (26-192); CREATININE FOR GFR 0.89 MG/DL (0.55-1.30); FREE T4 0.85 NG/DL (0.76-1.46); GLOMERULAR FILTRATION RATE > 60.0 (>51); GLUCOSE, FASTING 243 MG/DL (70-100); HDL CHOLESTEROL 39 MG/DL (>40); NON-HDL-C 75 MG/DL; POTASSIUM SERUM 4.3 MEQ/L (3.5-5.1); SODIUM LEVEL 143 MEQ/L (136-145); THYROID STIMULATING HORMONE 0.852 uIU/ML (0.358-3.740); TOTAL PROTEIN 6.9 GM/DL (6.4-8.2); TRIGLYCERIDES LEVEL 110 MG/DL (<150)
[2018-01-28 13:12] LABS: ESTIMATED AVERAGE GLUCOSE 180 MG/DL (60-110); HEMOGLOBIN A1c 7.9 %
[2018-01-28 13:27] LABS: PTH INTACT 46.9 PG/ML (18.5-88.0); VITAMIN B12 LEVEL 859 PG/ML (247-911)
[2018-01-28 13:33] LABS: TOTAL 25(OH) VITAMIN D 57.8 NG/ML (30.0-100.0)
== END ==
LOC: M SFHCPLAZ 10:45
DX: E53.8 Deficiency of other specified B group vitamins (principal); E11.9 Type 2 diabetes mellitus without complications; E55.9 Vitamin D deficiency, unspecified; E78.2 Mixed hyperlipidemia
CPT/HCPCS: 82550

== ENCOUNTER 2018-03-18 19:10 | Inpatient (IN) | payer MEDICARE, MEDICAID ==
[2018-03-18] MEDS ORDERED: HYDROmorphone HCL 1 MG/ML SYRINGE (J1170) As Ordered (19:23)
[2018-03-18] MEDS: HYDROmorphone HCL 1 MG/ML SYRINGE (J1170) IV (19:34)
[2018-03-18 19:52] LABS: HEMATOCRIT 35.7 % (36.0-47.0); HEMOGLOBIN 12.5 g/dl (12.0-15.5); MEAN CORPUSCULAR HEMOGLOBIN 35.9 pg (27.0-33.0); MEAN CORPUSCULAR VOLUME 102.6 fl (80.0-96.0); PLATELET COUNT, AUTOMATED 198 10^3/uL (150-450); RED BLOOD COUNT 3.48 10^6/uL (4.00-5.40); RED CELL DISTRIBUTION WIDTH 12.4 % (11.5-14.5); WHITE BLOOD COUNT 8.8 10^3/uL (4.0-10.0)
[2018-03-18 20:13] LABS: ANION GAP 6 MEQ/L (8-16); BLOOD UREA NITROGEN 14 MG/DL (7-18); CALCIUM LEVEL 8.4 MG/DL (8.5-10.1); CARBON DIOXIDE LEVEL 28 MEQ/L (21-32); CHLORIDE LEVEL 107 MEQ/L (98-107); CREATININE FOR GFR 0.85 MG/DL (0.55-1.30); GLOMERULAR FILTRATION RATE > 60.0 (>51); GLUCOSE, FASTING 203 MG/DL (70-100); SODIUM LEVEL 141 MEQ/L (136-145)
[2018-03-18] MEDS: fentaNYL 100 MCG/2 ML INJECTION (J3010) IV ×2 (20:16→22:10)
[2018-03-18 21:18] LABS: KETONE, URINE AUTO RFX NEGATIVE (NEGATIVE); LEUKOCYTE ESTERASE UR AUTO RFX NEGATIVE (NEGATIVE); MUCUS, URINE RFX SMALL (NEGATIVE); NITRITE, URINE AUTO RFX NEGATIVE (NEGATIVE); RBC, URINE AUTO RFX 1 /HPF (0-3); SPECIFIC GRAVITY UR AUTO RFX 1.017 (1.002-1.035); SQUAM EPITHELIAL CELL UR AURFX 0 /HPF (0-6); WBC, URINE AUTO RFX 6 /HPF (0-3)
[2018-03-18] MEDS: NS 1,000 ML IV (23:38)
[2018-03-18] MEDS ORDERED: ONDANSETRON 4 MG TAB (S0181) PO (23:45)
[2018-03-19] MEDS ORDERED: NAPROXEN 250 MG TAB PO
[2018-03-19] MEDS ORDERED: GLUCOSE 4 GM CHEW TABLET PO
[2018-03-19] MEDS ORDERED: DEXTROSE 50% 50 ML SYRINGE IV
[2018-03-19] MEDS ORDERED: GLUCAGON FOR INJ 1 MG VIAL (J1610) SC
[2018-03-19 00:57] LABS: BEDSIDE GLUCOSE 153 MG/DL (70-105)
[2018-03-19] MEDS: MORPHINE 4 MG/ML 1ML VIAL/SYRINGE (J2270) IV ×4 (01:15→17:36)
[2018-03-19] MEDS: AMITRIPTYLINE 25 MG TAB PO ×2 (01:24→20:50)
[2018-03-19] MEDS: DOCUSATE SODIUM 100 MG CAP PO (01:24)
[2018-03-19] MEDS: OMEPRAZOLE 20 MG CAP PO ×3 (01:25→20:55)
[2018-03-19] MEDS: busPIRone 10 MG TAB PO ×3 (01:25→20:51)
[2018-03-19] MEDS: GABAPENTIN 400 MG CAP PO ×5 (01:25→20:50)
[2018-03-19] MEDS: hydrOXYzine 25 MG TAB PO ×3 (01:25→20:52)
[2018-03-19] MEDS: DULoxetine 30 MG CAP (CYMBALTA) PO ×3 (01:26→20:51)
[2018-03-19] MEDS: ASPIRIN 81 MG ENTERIC TAB PO ×2 (01:26→20:50)
[2018-03-19] MEDS: AZELASTINE 137MCG NASAL SPY 30 ML (ASTELIN) ×3 (02:56→20:52)
[2018-03-19] MEDS: METHOCARBAMOL 500 MG TAB PO ×2 (02:56→14:09)
[2018-03-19] MEDS: ZONISAMIDE 100 MG CAP (ZONEGRAN) PO ×3 (02:56→20:52)
[2018-03-19] MEDS: oxyBUTYnin 5 MG TAB PO ×3 (02:56→20:50)
[2018-03-19] MEDS: PERCOCET 5MG/325MG TAB PO (03:34)
[2018-03-19] MEDS: HumaLOG INSULIN (NovoLOG) PER UNIT SC ×5 (05:40→21:00)
[2018-03-19] MEDS: D5W/0.45% SODIUM CHLORIDE 1,000 ML IV (05:40)
[2018-03-19 06:21] LABS: HEMATOCRIT 34.6 % (36.0-47.0); HEMOGLOBIN 11.8 g/dl (12.0-15.5); MEAN CORPUSCULAR HEMOGLOBIN 35.9 pg (27.0-33.0); MEAN CORPUSCULAR HGB CONC 34.1 g/dl (32.0-36.5); MEAN CORPUSCULAR VOLUME 105.2 fl (80.0-96.0); PLATELET COUNT, AUTOMATED 205 10^3/uL (150-450); RED BLOOD COUNT 3.29 10^6/uL (4.00-5.40); RED CELL DISTRIBUTION WIDTH 12.8 % (11.5-14.5); WHITE BLOOD COUNT 9.9 10^3/uL (4.0-10.0)
[2018-03-19 06:42] LABS: ANION GAP 8 MEQ/L (8-16); BLOOD UREA NITROGEN 14 MG/DL (7-18); CALCIUM LEVEL 8.4 MG/DL (8.5-10.1); CARBON DIOXIDE LEVEL 27 MEQ/L (21-32); CHLORIDE LEVEL 108 MEQ/L (98-107); CREATININE FOR GFR 0.77 MG/DL (0.55-1.30); GLOMERULAR FILTRATION RATE > 60.0 (>51); GLUCOSE, FASTING 179 MG/DL (70-100); POTASSIUM SERUM 4.1 MEQ/L (3.5-5.1); SODIUM LEVEL 143 MEQ/L (136-145)
[2018-03-19] MEDS: MULTIVITAMINS/MINERALS THERAP 1 TAB PO (08:54)
[2018-03-19] MEDS: FEXOFENADINE 60 MG TAB PO (08:54)
[2018-03-19] MEDS: FUROSEMIDE 20 MG TAB PO (08:54)
[2018-03-19] MEDS: CALCIUM/VITAMIN D 500 MG TAB PO (08:54)
[2018-03-19] MEDS: CelecoXIB (CeleBREX) 100 MG CAP PO (08:54)
[2018-03-19] MEDS: CYANOCOBALAMIN 500 MCG TAB PO (08:55)
[2018-03-19] MEDS: VITAMIN D 1,000 INTERNATIONAL UNITS TABLET PO (08:55)
[2018-03-19] MEDS: NYSTATIN 100,000 UNITS/GM TOPICAL PWD 15 GM TOP ×2 (08:56→20:53)
[2018-03-19] MEDS: ENOXAPARIN 40 MG/0.4 ML SYRINGE (J1650) SC (08:56)
[2018-03-19 13:08] LABS: BEDSIDE GLUCOSE 162 MG/DL (70-105)
[2018-03-19] MEDS: traMADol 50 MG TAB PO ×2 (16:22→20:49)
[2018-03-19] MEDS: ACETAMINOPHEN 500 MG TAB PO ×2 (16:22→20:52)
[2018-03-19 17:38] LABS: BEDSIDE GLUCOSE 295 MG/DL (70-105)
[2018-03-19 20:35] LABS: BEDSIDE GLUCOSE 162 MG/DL (70-105)
[2018-03-19] MEDS: POLYVINYL ALCOHOL OPHTH SOLN 15 ML(LIQUITEARS) OU (20:48)
[2018-03-19] MEDS: zolPIDEM TARTRATE 5 MG TAB PO (20:50)
[2018-03-20 07:05] LABS: HEMATOCRIT 32.5 % (36.0-47.0); HEMOGLOBIN 11.1 g/dl (12.0-15.5); MEAN CORPUSCULAR HEMOGLOBIN 35.8 pg (27.0-33.0); MEAN CORPUSCULAR HGB CONC 34.2 g/dl (32.0-36.5); MEAN CORPUSCULAR VOLUME 104.8 fl (80.0-96.0); PLATELET COUNT, AUTOMATED 159 10^3/uL (150-450); RED CELL DISTRIBUTION WIDTH 12.6 % (11.5-14.5); WHITE BLOOD COUNT 7.1 10^3/uL (4.0-10.0)
[2018-03-20 07:19] LABS: ANION GAP 7 MEQ/L (8-16); BLOOD UREA NITROGEN 14 MG/DL (7-18); CALCIUM LEVEL 8.4 MG/DL (8.5-10.1); CARBON DIOXIDE LEVEL 26 MEQ/L (21-32); CHLORIDE LEVEL 108 MEQ/L (98-107); GLOMERULAR FILTRATION RATE > 60.0 (>51); GLUCOSE, FASTING 185 MG/DL (70-100); POTASSIUM SERUM 3.8 MEQ/L (3.5-5.1); SODIUM LEVEL 141 MEQ/L (136-145)
[2018-03-20] MEDS: HumaLOG INSULIN (NovoLOG) PER UNIT SC ×4 (08:21→22:30)
[2018-03-20] MEDS: CALCIUM/VITAMIN D 500 MG TAB PO (08:22)
[2018-03-20] MEDS: MULTIVITAMINS/MINERALS THERAP 1 TAB PO (08:22)
[2018-03-20] MEDS: POLYVINYL ALCOHOL OPHTH SOLN 15 ML(LIQUITEARS) OU ×2 (08:22→21:48)
[2018-03-20] MEDS: AZELASTINE 137MCG NASAL SPY 30 ML (ASTELIN) ×2 (08:22→21:47)
[2018-03-20] MEDS: NYSTATIN 100,000 UNITS/GM TOPICAL PWD 15 GM TOP ×2 (08:22→21:47)
[2018-03-20] MEDS: ENOXAPARIN 40 MG/0.4 ML SYRINGE (J1650) SC (08:22)
[2018-03-20] MEDS: FEXOFENADINE 60 MG TAB PO (08:23)
[2018-03-20] MEDS: ACETAMINOPHEN 500 MG TAB PO ×3 (08:23→21:45)
[2018-03-20] MEDS: ZONISAMIDE 100 MG CAP (ZONEGRAN) PO ×2 (08:23→21:46)
[2018-03-20] MEDS: CYANOCOBALAMIN 500 MCG TAB PO (08:23)
[2018-03-20] MEDS: DULoxetine 30 MG CAP (CYMBALTA) PO ×2 (08:23→21:44)
[2018-03-20] MEDS: oxyBUTYnin 5 MG TAB PO ×2 (08:23→21:46)
[2018-03-20] MEDS: OMEPRAZOLE 20 MG CAP PO ×2 (08:24→21:45)
[2018-03-20] MEDS: GABAPENTIN 400 MG CAP PO (08:24)
[2018-03-20] MEDS: CelecoXIB (CeleBREX) 100 MG CAP PO (08:24)
[2018-03-20] MEDS: VITAMIN D 1,000 INTERNATIONAL UNITS TABLET PO (08:24)
[2018-03-20] MEDS: hydrOXYzine 25 MG TAB PO (08:24)
[2018-03-20] MEDS: busPIRone 10 MG TAB PO ×2 (08:24→21:46)
[2018-03-20] MEDS: metFORMIN (GLUCOPHAGE) 1000 MG TABLET PO ×2 (10:41→17:25)
[2018-03-20] MEDS: traMADol 50 MG TAB PO ×2 (15:08→21:45)
[2018-03-20] MEDS: GABAPENTIN 300 MG CAP PO ×2 (16:41→21:46)
[2018-03-20] MEDS ORDERED: METHOCARBAMOL 500 MG TAB PO (19:56)
[2018-03-20] MEDS: ASPIRIN 81 MG ENTERIC TAB PO (21:44)
[2018-03-20] MEDS: zolPIDEM TARTRATE 5 MG TAB PO (21:46)
[2018-03-20] MEDS: AMITRIPTYLINE 25 MG TAB PO (21:46)
[2018-03-20 22:17] LABS: BEDSIDE GLUCOSE 201 MG/DL (70-105)
[2018-03-20 22:17] LABS: BEDSIDE GLUCOSE 255 MG/DL (70-105)
[2018-03-20 22:17] LABS: BEDSIDE GLUCOSE 201 MG/DL (70-105)
[2018-03-21] MEDS: METHOCARBAMOL 500 MG TAB PO (03:07)
[2018-03-21 06:14] LABS: HEMATOCRIT 32.1 % (36.0-47.0); MEAN CORPUSCULAR HEMOGLOBIN 35.9 pg (27.0-33.0); MEAN CORPUSCULAR HGB CONC 34.3 g/dl (32.0-36.5); MEAN CORPUSCULAR VOLUME 104.9 fl (80.0-96.0); PLATELET COUNT, AUTOMATED 180 10^3/uL (150-450); RED BLOOD COUNT 3.06 10^6/uL (4.00-5.40); RED CELL DISTRIBUTION WIDTH 12.7 % (11.5-14.5)
[2018-03-21 06:34] LABS: ANION GAP 7 MEQ/L (8-16); BLOOD UREA NITROGEN 13 MG/DL (7-18); CALCIUM LEVEL 8.4 MG/DL (8.5-10.1); CARBON DIOXIDE LEVEL 27 MEQ/L (21-32); CHLORIDE LEVEL 109 MEQ/L (98-107); CREATININE FOR GFR 0.86 MG/DL (0.55-1.30); GLOMERULAR FILTRATION RATE > 60.0 (>51); GLUCOSE, FASTING 142 MG/DL (70-100); POTASSIUM SERUM 3.8 MEQ/L (3.5-5.1); SODIUM LEVEL 143 MEQ/L (136-145)
[2018-03-21] MEDS: HumaLOG INSULIN (NovoLOG) PER UNIT SC ×4 (07:30→21:00)
[2018-03-21] MEDS: oxyBUTYnin 5 MG TAB PO ×2 (09:23→21:37)
[2018-03-21] MEDS: GABAPENTIN 300 MG CAP PO ×3 (09:23→21:35)
[2018-03-21] MEDS: ENOXAPARIN 40 MG/0.4 ML SYRINGE (J1650) SC (09:23)
[2018-03-21] MEDS: ACETAMINOPHEN 500 MG TAB PO ×3 (09:24→21:37)
[2018-03-21] MEDS: OMEPRAZOLE 20 MG CAP PO ×2 (09:24→21:36)
[2018-03-21] MEDS: DULoxetine 30 MG CAP (CYMBALTA) PO ×2 (09:24→21:36)
[2018-03-21] MEDS: busPIRone 10 MG TAB PO ×2 (09:24→21:37)
[2018-03-21] MEDS: ZONISAMIDE 100 MG CAP (ZONEGRAN) PO ×2 (09:24→21:36)
[2018-03-21] MEDS: MULTIVITAMINS/MINERALS THERAP 1 TAB PO (09:25)
[2018-03-21] MEDS: VITAMIN D 1,000 INTERNATIONAL UNITS TABLET PO (09:25)
[2018-03-21] MEDS: traMADol 50 MG TAB PO ×3 (09:25→21:36)
[2018-03-21] MEDS: FUROSEMIDE 20 MG TAB PO (09:25)
[2018-03-21] MEDS: metFORMIN (GLUCOPHAGE) 1000 MG TABLET PO ×2 (09:25→17:37)
[2018-03-21] MEDS: CelecoXIB (CeleBREX) 100 MG CAP PO (09:26)
[2018-03-21] MEDS: NYSTATIN 100,000 UNITS/GM TOPICAL PWD 15 GM TOP ×2 (09:26→21:38)
[2018-03-21] MEDS: AZELASTINE 137MCG NASAL SPY 30 ML (ASTELIN) ×2 (09:26→21:38)
[2018-03-21] MEDS: CYANOCOBALAMIN 500 MCG TAB PO (09:26)
[2018-03-21] MEDS: FEXOFENADINE 60 MG TAB PO (09:26)
[2018-03-21] MEDS: CALCIUM/VITAMIN D 500 MG TAB PO (09:27)
[2018-03-21 18:50] LABS: BEDSIDE GLUCOSE 134 MG/DL (70-105)
[2018-03-21 18:50] LABS: BEDSIDE GLUCOSE 169 MG/DL (70-105)
[2018-03-21 18:50] LABS: BEDSIDE GLUCOSE 266 MG/DL (70-105)
[2018-03-21 21:04] LABS: BEDSIDE GLUCOSE 154 MG/DL (70-105)
[2018-03-21] MEDS: AMITRIPTYLINE 25 MG TAB PO (21:37)
[2018-03-21] MEDS: ASPIRIN 81 MG ENTERIC TAB PO (21:37)
[2018-03-21] MEDS: POLYVINYL ALCOHOL OPHTH SOLN 15 ML(LIQUITEARS) OU (21:38)
[2018-03-22] MEDS: METHOCARBAMOL 500 MG TAB PO (00:20)
[2018-03-22] MEDS: traMADol 50 MG TAB PO ×2 (06:01→12:45)
[2018-03-22 06:24] LABS: ANION GAP 7 MEQ/L (8-16); BLOOD UREA NITROGEN 16 MG/DL (7-18); CALCIUM LEVEL 8.2 MG/DL (8.5-10.1); CARBON DIOXIDE LEVEL 21 MEQ/L (21-32); CHLORIDE LEVEL 112 MEQ/L (98-107); CREATININE FOR GFR 0.87 MG/DL (0.55-1.30); GLOMERULAR FILTRATION RATE > 60.0 (>51); GLUCOSE, FASTING 123 MG/DL (70-100); POTASSIUM SERUM 4.7 MEQ/L (3.5-5.1); SODIUM LEVEL 140 MEQ/L (136-145)
[2018-03-22] MEDS: MIRALAX *UNIT DOSE* 17GM PACKET PO (06:38)
[2018-03-22 06:39] LABS: HEMATOCRIT 33.1 % (36.0-47.0); HEMOGLOBIN 11.3 g/dl (12.0-15.5); MEAN CORPUSCULAR HEMOGLOBIN 35.5 pg (27.0-33.0); MEAN CORPUSCULAR HGB CONC 34.1 g/dl (32.0-36.5); MEAN CORPUSCULAR VOLUME 104.1 fl (80.0-96.0); PLATELET COUNT, AUTOMATED 211 10^3/uL (150-450); RED BLOOD COUNT 3.18 10^6/uL (4.00-5.40); RED CELL DISTRIBUTION WIDTH 12.5 % (11.5-14.5)
[2018-03-22] MEDS: AZELASTINE 137MCG NASAL SPY 30 ML (ASTELIN) ×2 (09:36→20:57)
[2018-03-22] MEDS: HumaLOG INSULIN (NovoLOG) PER UNIT SC ×4 (09:37→20:56)
[2018-03-22] MEDS: NYSTATIN 100,000 UNITS/GM TOPICAL PWD 15 GM TOP ×2 (09:37→20:57)
[2018-03-22] MEDS: oxyBUTYnin 5 MG TAB PO ×2 (09:37→20:55)
[2018-03-22] MEDS: busPIRone 10 MG TAB PO ×2 (09:38→20:56)
[2018-03-22] MEDS: FEXOFENADINE 60 MG TAB PO (09:38)
[2018-03-22] MEDS: metFORMIN (GLUCOPHAGE) 1000 MG TABLET PO ×2 (09:38→17:27)
[2018-03-22] MEDS: ACETAMINOPHEN 500 MG TAB PO ×3 (09:38→20:55)
[2018-03-22] MEDS: CelecoXIB (CeleBREX) 100 MG CAP PO (09:38)
[2018-03-22] MEDS: CALCIUM/VITAMIN D 500 MG TAB PO (09:39)
[2018-03-22] MEDS: MULTIVITAMINS/MINERALS THERAP 1 TAB PO (09:39)
[2018-03-22] MEDS: GABAPENTIN 300 MG CAP PO ×3 (09:39→20:54)
[2018-03-22] MEDS: ZONISAMIDE 100 MG CAP (ZONEGRAN) PO ×2 (09:39→20:55)
[2018-03-22] MEDS: DULoxetine 30 MG CAP (CYMBALTA) PO ×2 (09:39→20:55)
[2018-03-22] MEDS: OMEPRAZOLE 20 MG CAP PO ×2 (09:39→20:54)
[2018-03-22] MEDS: VITAMIN D 1,000 INTERNATIONAL UNITS TABLET PO (09:39)
[2018-03-22] MEDS: CYANOCOBALAMIN 500 MCG TAB PO (09:39)
[2018-03-22 12:12] LABS: BEDSIDE GLUCOSE 141 MG/DL (70-105)
[2018-03-22] MEDS: DOCUSATE SODIUM 100 MG CAP PO (16:42)
[2018-03-22] MEDS: ENOXAPARIN 40 MG/0.4 ML SYRINGE (J1650) SC (16:42)
[2018-03-22] MEDS: PERCOCET 5MG/325MG TAB PO ×2 (16:43→22:58)
[2018-03-22] MEDS: FLEET ENEMA PR (17:00)
[2018-03-22 17:11] LABS: BEDSIDE GLUCOSE 219 MG/DL (70-105)
[2018-03-22 20:39] LABS: BEDSIDE GLUCOSE 223 MG/DL (70-105)
[2018-03-22] MEDS: AMITRIPTYLINE 25 MG TAB PO (20:55)
[2018-03-22] MEDS: SENOKOT S TAB PO (20:56)
[2018-03-22] MEDS: ASPIRIN 81 MG ENTERIC TAB PO (20:56)
[2018-03-22] MEDS: MINERAL OIL 473 ML BTL PO (21:00)
[2018-03-22] MEDS: zolPIDEM TARTRATE 5 MG TAB PO (22:57)
[2018-03-23] MEDS: HumaLOG INSULIN (NovoLOG) PER UNIT SC ×4 (07:30→21:00)
[2018-03-23 08:02] LABS: BEDSIDE GLUCOSE 141 MG/DL (70-105)
[2018-03-23] MEDS: NYSTATIN 100,000 UNITS/GM TOPICAL PWD 15 GM TOP ×2 (08:50→21:05)
[2018-03-23] MEDS: DULoxetine 30 MG CAP (CYMBALTA) PO ×2 (08:50→21:04)
[2018-03-23] MEDS: ACETAMINOPHEN 500 MG TAB PO ×3 (08:51→21:03)
[2018-03-23] MEDS: ENOXAPARIN 40 MG/0.4 ML SYRINGE (J1650) SC (08:51)
[2018-03-23] MEDS: OMEPRAZOLE 20 MG CAP PO ×2 (08:51→21:03)
[2018-03-23] MEDS: VITAMIN D 1,000 INTERNATIONAL UNITS TABLET PO (08:51)
[2018-03-23] MEDS: busPIRone 10 MG TAB PO ×2 (08:52→21:04)
[2018-03-23] MEDS: GABAPENTIN 300 MG CAP PO ×3 (08:52→21:04)
[2018-03-23] MEDS: CYANOCOBALAMIN 500 MCG TAB PO (08:52)
[2018-03-23] MEDS: metFORMIN (GLUCOPHAGE) 1000 MG TABLET PO ×2 (08:52→17:17)
[2018-03-23] MEDS: MULTIVITAMINS/MINERALS THERAP 1 TAB PO (08:52)
[2018-03-23] MEDS: FEXOFENADINE 60 MG TAB PO (08:52)
[2018-03-23] MEDS: CelecoXIB (CeleBREX) 100 MG CAP PO (08:52)
[2018-03-23] MEDS: ZONISAMIDE 100 MG CAP (ZONEGRAN) PO ×2 (08:52→21:04)
[2018-03-23] MEDS: oxyBUTYnin 5 MG TAB PO ×2 (08:52→21:04)
[2018-03-23] MEDS: SENOKOT S TAB PO ×2 (08:52→21:04)
[2018-03-23] MEDS: AZELASTINE 137MCG NASAL SPY 30 ML (ASTELIN) ×2 (08:53→21:05)
[2018-03-23] MEDS: POLYVINYL ALCOHOL OPHTH SOLN 15 ML(LIQUITEARS) OU (08:53)
[2018-03-23] MEDS: CALCIUM/VITAMIN D 500 MG TAB PO (08:53)
[2018-03-23 12:07] LABS: BEDSIDE GLUCOSE 144 MG/DL (70-105)
[2018-03-23] MEDS: PERCOCET 5MG/325MG TAB PO ×2 (13:20→23:27)
[2018-03-23 17:13] LABS: BEDSIDE GLUCOSE 256 MG/DL (70-105)
[2018-03-23 20:41] LABS: BEDSIDE GLUCOSE 181 MG/DL (70-105)
[2018-03-23] MEDS: AMITRIPTYLINE 25 MG TAB PO (21:04)
[2018-03-23] MEDS: ASPIRIN 81 MG ENTERIC TAB PO (21:04)
[2018-03-23] MEDS: zolPIDEM TARTRATE 5 MG TAB PO (23:27)
[2018-03-24 07:05] LABS: BEDSIDE GLUCOSE 144 MG/DL (70-105)
[2018-03-24] MEDS: HumaLOG INSULIN (NovoLOG) PER UNIT SC ×4 (07:30→20:46)
[2018-03-24] MEDS: NYSTATIN 100,000 UNITS/GM TOPICAL PWD 15 GM TOP ×2 (09:00→20:50)
[2018-03-24] MEDS: ACETAMINOPHEN 500 MG TAB PO ×3 (09:00→20:46)
[2018-03-24] MEDS: AZELASTINE 137MCG NASAL SPY 30 ML (ASTELIN) ×2 (09:00→20:47)
[2018-03-24] MEDS: GABAPENTIN 300 MG CAP PO ×3 (09:00→20:45)
[2018-03-24] MEDS: ENOXAPARIN 40 MG/0.4 ML SYRINGE (J1650) SC (09:00)
[2018-03-24] MEDS: FUROSEMIDE 20 MG TAB PO (09:01)
[2018-03-24] MEDS: MULTIVITAMINS/MINERALS THERAP 1 TAB PO (09:01)
[2018-03-24] MEDS: FEXOFENADINE 60 MG TAB PO (09:01)
[2018-03-24] MEDS: CYANOCOBALAMIN 500 MCG TAB PO (09:01)
[2018-03-24] MEDS: busPIRone 10 MG TAB PO ×2 (09:01→20:46)
[2018-03-24] MEDS: ZONISAMIDE 100 MG CAP (ZONEGRAN) PO ×2 (09:01→20:46)
[2018-03-24] MEDS: PERCOCET 5MG/325MG TAB PO ×2 (09:01→20:45)
[2018-03-24] MEDS: CelecoXIB (CeleBREX) 100 MG CAP PO (09:01)
[2018-03-24] MEDS: VITAMIN D 1,000 INTERNATIONAL UNITS TABLET PO (09:01)
[2018-03-24] MEDS: OMEPRAZOLE 20 MG CAP PO ×2 (09:01→20:45)
[2018-03-24] MEDS: DULoxetine 30 MG CAP (CYMBALTA) PO ×2 (09:01→20:46)
[2018-03-24] MEDS: metFORMIN (GLUCOPHAGE) 1000 MG TABLET PO ×2 (09:01→17:09)
[2018-03-24] MEDS: CALCIUM/VITAMIN D 500 MG TAB PO (09:01)
[2018-03-24] MEDS: oxyBUTYnin 5 MG TAB PO ×2 (09:01→20:45)
[2018-03-24] MEDS: SENOKOT S TAB PO ×2 (09:01→20:46)
[2018-03-24 11:35] LABS: BEDSIDE GLUCOSE 168 MG/DL (70-105)
[2018-03-24 16:38] LABS: BEDSIDE GLUCOSE 205 MG/DL (70-105)
[2018-03-24 20:14] LABS: BEDSIDE GLUCOSE 195 MG/DL (70-105)
[2018-03-24] MEDS: zolPIDEM TARTRATE 5 MG TAB PO (20:45)
[2018-03-24] MEDS: AMITRIPTYLINE 25 MG TAB PO (20:45)
[2018-03-24] MEDS: ASPIRIN 81 MG ENTERIC TAB PO (20:46)
[2018-03-25 05:49] LABS: BEDSIDE GLUCOSE 118 MG/DL (70-105)
[2018-03-25 06:38] LABS: HEMATOCRIT 32.2 % (36.0-47.0); MEAN CORPUSCULAR HEMOGLOBIN 36.1 pg (27.0-33.0); MEAN CORPUSCULAR HGB CONC 34.2 g/dl (32.0-36.5); MEAN CORPUSCULAR VOLUME 105.6 fl (80.0-96.0); PLATELET COUNT, AUTOMATED 204 10^3/uL (150-450); RED BLOOD COUNT 3.05 10^6/uL (4.00-5.40); RED CELL DISTRIBUTION WIDTH 13.2 % (11.5-14.5); WHITE BLOOD COUNT 7.6 10^3/uL (4.0-10.0)
[2018-03-25] MEDS: DULoxetine 30 MG CAP (CYMBALTA) PO (09:36)
[2018-03-25] MEDS: CALCIUM/VITAMIN D 500 MG TAB PO (09:36)
[2018-03-25] MEDS: SENOKOT S TAB PO (09:36)
[2018-03-25] MEDS: busPIRone 10 MG TAB PO (09:36)
[2018-03-25] MEDS: ZONISAMIDE 100 MG CAP (ZONEGRAN) PO (09:36)
[2018-03-25] MEDS: CYANOCOBALAMIN 500 MCG TAB PO (09:36)
[2018-03-25] MEDS: FEXOFENADINE 60 MG TAB PO (09:36)
[2018-03-25] MEDS: metFORMIN (GLUCOPHAGE) 1000 MG TABLET PO (09:36)
[2018-03-25] MEDS: VITAMIN D 1,000 INTERNATIONAL UNITS TABLET PO (09:36)
[2018-03-25] MEDS: CelecoXIB (CeleBREX) 100 MG CAP PO (09:37)
[2018-03-25] MEDS: MULTIVITAMINS/MINERALS THERAP 1 TAB PO (09:37)
[2018-03-25] MEDS: oxyBUTYnin 5 MG TAB PO (09:37)
[2018-03-25] MEDS: GABAPENTIN 300 MG CAP PO (09:37)
[2018-03-25] MEDS: OMEPRAZOLE 20 MG CAP PO (09:37)
[2018-03-25] MEDS: ACETAMINOPHEN 500 MG TAB PO (09:37)
[2018-03-25 09:38] LABS: BEDSIDE GLUCOSE 142 MG/DL (70-105)
[2018-03-25] MEDS: ENOXAPARIN 40 MG/0.4 ML SYRINGE (J1650) SC (09:38)
[2018-03-25] MEDS: NYSTATIN 100,000 UNITS/GM TOPICAL PWD 15 GM TOP (09:38)
[2018-03-25] MEDS: HumaLOG INSULIN (NovoLOG) PER UNIT SC (09:38)
[2018-03-25] MEDS: AZELASTINE 137MCG NASAL SPY 30 ML (ASTELIN) (09:39)
== END 2018-03-25 11:35 | DRG 563 ==
LOC: M MS5PR 03-19 00:29 → M ED 19:10 → M ED INP 23:41
DX: S42.351A Displaced comminuted fracture of shaft of humerus, right arm, initial encounter for closed fracture (principal); E11.9 Type 2 diabetes mellitus without complications; M54.5 Low back pain; G47.00 Insomnia, unspecified; F41.9 Anxiety disorder, unspecified; F32.9 Major depressive disorder, single episode, unspecified; F17.290 Nicotine dependence, other tobacco product, uncomplicated; K58.1 Irritable bowel syndrome with constipation; M51.86 Other intervertebral disc disorders, lumbar region; R29.6 Repeated falls; N31.9 Neuromuscular dysfunction of bladder, unspecified; W01.198A Fall on same level from slipping, tripping and stumbling with subsequent striking against other object, initial encounter; Y92.019 Unspecified place in single-family (private) house as the place of occurrence of the external cause; Y93.01 Activity, walking, marching and hiking; Z79.82 Long term (current) use of aspirin; Z79.4 Long term (current) use of insulin; Z91.040 Latex allergy status; Z91.018 Allergy to other foods; Z88.1 Allergy status to other antibiotic agents; Z98.84 Bariatric surgery status

== ENCOUNTER → 2018-04-01 | Outpatient (REF) ==
[2018-04-01 11:56] LABS: HEMATOCRIT 38.6 % (36.0-47.0); HEMOGLOBIN 12.8 g/dl (12.0-15.5); MEAN CORPUSCULAR HEMOGLOBIN 35.9 pg (27.0-33.0); MEAN CORPUSCULAR HGB CONC 33.2 g/dl (32.0-36.5); MEAN CORPUSCULAR VOLUME 108.1 fl (80.0-96.0); PLATELET COUNT, AUTOMATED 330 10^3/uL (150-450); RED BLOOD COUNT 3.57 10^6/uL (4.00-5.40); WHITE BLOOD COUNT 8.3 10^3/uL (4.0-10.0)
[2018-04-01 12:27] LABS: ANION GAP 7 MEQ/L (8-16); BLOOD UREA NITROGEN 12 MG/DL (7-18); CALCIUM LEVEL 9.2 MG/DL (8.5-10.1); CARBON DIOXIDE LEVEL 28 MEQ/L (21-32); CHLORIDE LEVEL 107 MEQ/L (98-107); CREATININE FOR GFR 0.81 MG/DL (0.55-1.30); GLOMERULAR FILTRATION RATE > 60.0 (>51); GLUCOSE, FASTING 130 MG/DL (70-100); POTASSIUM SERUM 4.1 MEQ/L (3.5-5.1); SODIUM LEVEL 142 MEQ/L (136-145)
== END ==
DX: I10 Essential (primary) hypertension (principal)

== ENCOUNTER → 2018-04-22 | Outpatient (REF) ==
[2018-04-22 09:41] LABS: HEMATOCRIT 38.7 % (36.0-47.0); MEAN CORPUSCULAR HEMOGLOBIN 36.5 pg (27.0-33.0); MEAN CORPUSCULAR HGB CONC 33.6 g/dl (32.0-36.5); MEAN CORPUSCULAR VOLUME 108.7 fl (80.0-96.0); PLATELET COUNT, AUTOMATED 240 10^3/uL (150-450); RED BLOOD COUNT 3.56 10^6/uL (4.00-5.40); RED CELL DISTRIBUTION WIDTH 13.9 % (11.5-14.5); WHITE BLOOD COUNT 5.5 10^3/uL (4.0-10.0)
[2018-04-22 10:16] LABS: ANION GAP 10 MEQ/L (8-16); BLOOD UREA NITROGEN 14 MG/DL (7-18); CALCIUM LEVEL 8.9 MG/DL (8.5-10.1); CARBON DIOXIDE LEVEL 27 MEQ/L (21-32); CHLORIDE LEVEL 105 MEQ/L (98-107); CREATININE FOR GFR 0.73 MG/DL (0.55-1.30); GLOMERULAR FILTRATION RATE > 60.0 (>51); GLUCOSE, FASTING 114 MG/DL (70-100); POTASSIUM SERUM 4.2 MEQ/L (3.5-5.1); SODIUM LEVEL 142 MEQ/L (136-145)
== END ==
DX: I10 Essential (primary) hypertension (principal)

== ENCOUNTER → 2018-04-29 | Outpatient (REF) ==
[2018-04-29 11:57] LABS: FOLATE 10.7 NG/ML (>5.4)
[2018-04-29 11:57] LABS: VITAMIN B12 LEVEL 1159 PG/ML (247-911)
== END ==
DX: D75.89 Other specified diseases of blood and blood-forming organs (principal)

== ENCOUNTER → 2018-05-20 | Outpatient (REF) ==
[2018-05-20 10:08] LABS: HEMATOCRIT 36.6 % (36.0-47.0); HEMOGLOBIN 12.4 g/dl (12.0-15.5); MEAN CORPUSCULAR HEMOGLOBIN 36.4 pg (27.0-33.0); MEAN CORPUSCULAR HGB CONC 33.9 g/dl (32.0-36.5); MEAN CORPUSCULAR VOLUME 107.3 fl (80.0-96.0); PLATELET COUNT, AUTOMATED 194 10^3/uL (150-450); RED BLOOD COUNT 3.41 10^6/uL (4.00-5.40); RED CELL DISTRIBUTION WIDTH 13.4 % (11.5-14.5); WHITE BLOOD COUNT 6.3 10^3/uL (4.0-10.0)
[2018-05-20 10:36] LABS: ANION GAP 10 MEQ/L (8-16); BLOOD UREA NITROGEN 14 MG/DL (7-18); CALCIUM LEVEL 8.9 MG/DL (8.5-10.1); CARBON DIOXIDE LEVEL 29 MEQ/L (21-32); CHLORIDE LEVEL 104 MEQ/L (98-107); CREATININE FOR GFR 0.88 MG/DL (0.55-1.30); GLOMERULAR FILTRATION RATE > 60.0 (>51); GLUCOSE, FASTING 155 MG/DL (70-100); POTASSIUM SERUM 3.8 MEQ/L (3.5-5.1); SODIUM LEVEL 143 MEQ/L (136-145)
== END ==
DX: I10 Essential (primary) hypertension (principal)

== ENCOUNTER → 2018-06-09 | Outpatient (REF) | payer MEDICARE, MEDICAID ==
[2018-06-09 14:11] LABS: BASO % 0.4 % (0.0-1.0); EOS # 0.4 10^3/uL (0.0-0.50); EOS % 5.2 % (0.0-3.0); HEMATOCRIT 36.2 % (36.0-47.0); HEMOGLOBIN 12.4 g/dl (12.0-15.5); IMMATURE GRANULOCYTE % 0.4 % (0-3.0); LYMPH % 30.3 % (24.0-44.0); MEAN CORPUSCULAR HGB CONC 34.3 g/dl (32.0-36.5); MEAN CORPUSCULAR VOLUME 108.1 fl (80.0-96.0); MONO # 0.6 10^3/uL (0.0-0.8); MONO % 9.4 % (0.0-5.0); NEUTROPHILS # 3.6 10^3/uL (1.8-7.7); NEUTROPHILS % 54.3 % (36.0-66.0); PLATELET COUNT, AUTOMATED 190 10^3/uL (150-450); RED BLOOD COUNT 3.35 10^6/uL (4.00-5.40); RED CELL DISTRIBUTION WIDTH 13.8 % (11.5-14.5); RETIC HEMOGLOBIN EQUIVALENT 39.6 pg (24-36); RETICULOCYTE # 104.2 10^9/L (17-77); RETICULOCYTE % 3.1 % (0.5-1.5); WHITE BLOOD COUNT 6.7 10^3/uL (4.0-10.0)
[2018-06-09 14:31] LABS: ALBUMIN 2.8 GM/DL (3.2-5.2); ALBUMIN/GLOBULIN RATIO 0.72 (1.00-1.93); ALKALINE PHOSPHATASE 174 U/L (45-117); ALT/SGPT 32 U/L (12-78); ANION GAP 10 MEQ/L (8-16); AST/SGOT 37 U/L (7-37); BILIRUBIN,TOTAL 0.5 MG/DL (0.2-1.0); BLOOD UREA NITROGEN 14 MG/DL (7-18); CALCIUM LEVEL 8.4 MG/DL (8.5-10.1); CARBON DIOXIDE LEVEL 25 MEQ/L (21-32); CHLORIDE LEVEL 109 MEQ/L (98-107); CREATININE FOR GFR 0.79 MG/DL (0.55-1.30); GLOMERULAR FILTRATION RATE > 60.0 (>51); GLUCOSE, FASTING 131 MG/DL (70-100); MAGNESIUM LEVEL 1.8 MG/DL (1.8-2.4); NT-PRO BNP 74 PG/ML (<125); POTASSIUM SERUM 4.1 MEQ/L (3.5-5.1); SODIUM LEVEL 144 MEQ/L (136-145); TOTAL PROTEIN 6.7 GM/DL (6.4-8.2)
[2018-06-09 14:36] LABS: ESTIMATED AVERAGE GLUCOSE 126 MG/DL (60-110)
[2018-06-12 12:41] LABS: ALBUMIN % 49.2 % (55.8-66.1); ALPHA-1-GLOBULIN % 5.8 % (2.9-4.9); ALPHA-1-GLOBULINS 0.39 GM/DL (0.17-0.41); ALPHA-2-GLOBULINS 0.79 GM/DL (0.42-0.99); ALPHA-2-GLOBULINS % 11.8 % (7.1-11.8); BETA-1-GLOBULINS 0.44 GM/DL (0.28-0.60); BETA-1-GLOBULINS % 6.6 % (4.7-7.2); BETA-2-GLOBULINS 0.39 GM/DL (0.19-0.55); BETA-2-GLOBULINS % 5.8 % (3.2-6.5); GAMMA GLOBULIN % 20.8 % (11.1-18.8); GAMMA GLOBULINS 1.39 GM/DL (0.65-1.58)
== END ==
LOC: M SFHCPLAZ 13:03
DX: I87.2 Venous insufficiency (chronic) (peripheral) (principal); E11.3299 Type 2 diabetes mellitus wit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, unspecified eye; Z79.899 Other long term (current) drug therapy
CPT/HCPCS: 83735

== ENCOUNTER → 2018-09-05 | Outpatient (CLI) | payer MEDICARE, MEDICAID ==
[~2018-09-05] MED LIST changes: -*PREMTA PO; -/BACL20TA PO; -/DULO30CA PO; -/ESOM40CA PO; -/ZOLP6ER PO; -3 DA0.1C TOP; -ACET65TA OR; -ALLE180T33 PO; -AMBI12.52 PO; -AMBIEN PO; -AMIT25TA PO; -AMOX250C3 PO; -ASPI1TAB PO; -ASPI81TAEC PO; -ATOR1TAB21 PO; -BACT400T PO; -BUSP15TA PO; -BUSP30TA PO; -BUSPAR PO; -CALCIUM/VIT D PO; -CALCTAB68 PO; -CETI10TA PO; -COLA100C2 OR; -COLA100C5 PO; -CYCL10TA PO; -DICL13PA TD; -DICL13PA TOP; -DULO1CAP2 PO; -DULO1CAP3 PO; +E-Z-GAS II EFFERVESCENT PACKET (SODIUM BICARB./CITRIC ACID/SIMETHICONE) As Ordered; +E-Z-HD 98% w/w 340GM SUSP BTL As Ordered; +E-Z-PAQUE 96% w/w SUSP 176GM BTL As Ordered; -FISH1000 PO; -FLAG500T OR; -GABA800T PO; -HYDR-3716 PO; -HYDR1CAP25 PO; -KEFL250C OR; -KEFL500C17 PO; -LIDO5DIS TOP; -METF10004 PO; -METH1TAB40 PO; -MIRA3350 PO; -MIRALEX OR; -MIRALEX PO; -MULTTAB17 PO; -NAPR500T6 PO; -NEUR300C PO; -NEUR600T PO; -NORC1TAB4 PO; -OMEP20TA7 PO; -OMEP40CA2 PO; -OXYB5TAB10 PO; -OXYC-517 PO; -OXYC5CAP4 OR; -PEG1POW PO; -PERC5TAB8 PO; -PERCOCET PO; -REST0.05 OU; -RIZA10TA2 PO; -VICT18IN SC; -VICTOZA SC; -VIST25CA PO; -VITA-113 PO; -VITA200016 PO; -VITA500T3 PO; -VITMTA PO; -ZOLP5TAB PO; -ZONI100C2 PO; -ZONI25CA2 PO; -[UNRECOGNIZED DRUG - OTHER]
[2018-09-05 10:15] LABS: BEDSIDE GLUCOSE 249 MG/DL (70-105)
== END ==
LOC: M RAD 09:32
DX: Z98.84 Bariatric surgery status (principal)

== ENCOUNTER 2018-09-07 13:42 | Inpatient (IN) | payer MEDICARE, MEDICAID ==
[2018-09-07 14:40] LABS: BASO % 0.4 % (0.0-1.0); EOS # 0.3 10^3/uL (0.0-0.50); EOS % 4.4 % (0.0-3.0); HEMATOCRIT 37.8 % (36.0-47.0); HEMOGLOBIN 12.9 g/dl (12.0-15.5); IMMATURE GRANULOCYTE % 0.4 % (0-3.0); LYMPH # 2.1 10^3/uL (1.5-4.5); MEAN CORPUSCULAR HEMOGLOBIN 37.3 pg (27.0-33.0); MEAN CORPUSCULAR HGB CONC 34.1 g/dl (32.0-36.5); MEAN CORPUSCULAR VOLUME 109.2 fl (80.0-96.0); MONO # 0.6 10^3/uL (0.0-0.8); NEUTROPHILS # 4.4 10^3/uL (1.8-7.7); NEUTROPHILS % 58.8 % (36.0-66.0); PLATELET COUNT, AUTOMATED 204 10^3/uL (150-450); RED BLOOD COUNT 3.46 10^6/uL (4.00-5.40); RED CELL DISTRIBUTION WIDTH 12.3 % (11.5-14.5); WHITE BLOOD COUNT 7.5 10^3/uL (4.0-10.0)
[2018-09-07 14:41] LABS: VENOUS BASE EXCESS -0.5 (-2.0-2.0); VENOUS HCO3 24.6 MEQ/L (23.0-27.0); VENOUS O2 SATURATION 51.4 % (60.0-80.0); VENOUS PARTIAL PRESSURE CO2 42.3 mmHg (38.0-50.0); VENOUS PARTIAL PRESSURE O2 30.3 mmHg (30.0-50.0); VENOUS PH 7.383 UNITS (7.330-7.430); VENOUS STANDARD HCO3 23.1 MEQ/L; VENOUS TOTAL CO2 25.9 MEQ/L (24.0-28.0)
[2018-09-07] MEDS: NS 1,000 ML IV (14:52)
[2018-09-07 15:03] LABS: AMMONIA 83 uMOL/L (<32)
[2018-09-07 15:07] LABS: LACTIC ACID SEPSIS PROTOCOL 1.9 MMOL/L (0.4-2.0)
[2018-09-07 15:14] LABS: ACETAMINOPHEN LEVEL < 2.0 UG/ML (10.0-30.0); ALBUMIN 3.2 GM/DL (3.2-5.2); ALBUMIN/GLOBULIN RATIO 0.86 (1.00-1.93); ALKALINE PHOSPHATASE 128 U/L (45-117); ALT/SGPT 31 U/L (12-78); ANION GAP 9 MEQ/L (8-16); AST/SGOT 44 U/L (7-37); BILIRUBIN,DIRECT 0.5 MG/DL (0.0-0.2); BILIRUBIN,TOTAL 1.1 MG/DL (0.2-1.0); BLOOD UREA NITROGEN 13 MG/DL (7-18); CALCIUM LEVEL 8.6 MG/DL (8.5-10.1); CARBON DIOXIDE LEVEL 25 MEQ/L (21-32); CHLORIDE LEVEL 109 MEQ/L (98-107); CPK CREATINE PHOSPHOKINASE 130 U/L (26-192); CREATININE FOR GFR 0.81 MG/DL (0.55-1.30); ETHYL ALCOHOL (ETHANOL) < 0.003 % (0.000-0.010); GLOMERULAR FILTRATION RATE > 60.0 (>51); GLUCOSE, FASTING 134 MG/DL (70-100); MB/CK RELATIVE INDEX 2.38 (< OR =4); SALICYLATE LEVEL < 1.7 MG/DL (5.0-30.0); SODIUM LEVEL 143 MEQ/L (136-145); TOTAL PROTEIN 6.9 GM/DL (6.4-8.2); TROPONIN I < 0.02 NG/ML (< 0.10)
[2018-09-07] MEDS ORDERED: ACETAMINOPHEN TAB 650MG DOSE (2X325MG) PO (19:15)
[2018-09-07] MEDS ORDERED: ACETAMINOPHEN 325 MG TAB PO (19:15)
[2018-09-07] MEDS ORDERED: MIRALAX *UNIT DOSE* 17GM PACKET PO (19:15)
[2018-09-07] MEDS ORDERED: METHOCARBAMOL 500 MG TAB PO (19:15)
[2018-09-07] MEDS ORDERED: RIZATRIPTAN BENZOATE 10 MG TAB PO (19:15)
[2018-09-07] MEDS ORDERED: GLUCAGON FOR INJ 1 MG VIAL (J1610) SC (19:15)
[2018-09-07] MEDS ORDERED: GLUCOSE 4 GM CHEW TABLET PO (19:15)
[2018-09-07] MEDS ORDERED: DEXTROSE 50% 50 ML SYRINGE IV (19:15)
[2018-09-07] MEDS ORDERED: NAPROXEN 250 MG TAB PO (19:15)
[2018-09-07] MEDS ORDERED: AMITRIPTYLINE 25 MG TAB PO (19:29)
[2018-09-07] MEDS ORDERED: ZONISAMIDE 100 MG CAP (ZONEGRAN) PO (21:00)
[2018-09-07 21:55] LABS: BEDSIDE GLUCOSE 232 MG/DL (70-105)
[2018-09-07] MEDS: HumaLOG INSULIN (NovoLOG) PER UNIT SC (22:04)
[2018-09-07] MEDS: LACTULOSE 20 GM/30 ML SYRUP UD PO (22:47)
[2018-09-07] MEDS: busPIRone 10 MG TAB PO (22:48)
[2018-09-07] MEDS: DULoxetine 30 MG CAP (CYMBALTA) PO (22:49)
[2018-09-07] MEDS: PERCOCET 5MG/325MG TAB PO (22:49)
[2018-09-07] MEDS: GABAPENTIN 300 MG CAP PO (22:50)
[2018-09-07] MEDS: oxyBUTYnin 5 MG TAB PO (23:50)
[2018-09-07] MEDS: AMITRIPTYLINE 25 MG TAB PO (23:50)
[2018-09-07] MEDS: NORTRIPTYLINE 10 MG CAP PO (23:51)
[2018-09-07] MEDS: BACTRIM 80MG/400MG TAB PO (23:51)
[2018-09-07] MEDS: NYSTATIN 100,000 UNITS/GM TOPICAL PWD 15 GM TOP (23:52)
[2018-09-08 00:13] LABS: KETONE, URINE AUTO RFX NEGATIVE (NEGATIVE); MUCUS, URINE RFX SMALL (NEGATIVE); RBC, URINE AUTO RFX 2 /HPF (0-3); SPECIFIC GRAVITY UR AUTO RFX 1.013 (1.002-1.035); SQUAM EPITHELIAL CELL UR AURFX 0 /HPF (0-6); TRANSITIONAL EPITHELIAL AU RFX <1 /HPF; WBC, URINE AUTO RFX 7 /HPF (0-3)
[2018-09-08 00:15] LABS: LEUKOCYTE ESTERASE UR AUTO RFX TRACE (NEGATIVE); NITRITE, URINE AUTO RFX POSITIVE (NEGATIVE)
[2018-09-08] MEDS: ZONISAMIDE 50 MG CAP (ZONEGRAN) PO ×2 (00:22→20:14)
[2018-09-08] MEDS: ENOXAPARIN 40 MG/0.4 ML SYRINGE (J1650) SC ×2 (00:22→20:14)
[2018-09-08 07:02] LABS: BASO % 0.5 % (0.0-1.0); EOS # 0.3 10^3/uL (0.0-0.50); EOS % 5.7 % (0.0-3.0); HEMATOCRIT 33.6 % (36.0-47.0); HEMOGLOBIN 11.4 g/dl (12.0-15.5); IMMATURE GRANULOCYTE % 0.3 % (0-3.0); LYMPH # 2.7 10^3/uL (1.5-4.5); LYMPH % 44.9 % (24.0-44.0); MEAN CORPUSCULAR HEMOGLOBIN 36.8 pg (27.0-33.0); MEAN CORPUSCULAR HGB CONC 33.9 g/dl (32.0-36.5); MEAN CORPUSCULAR VOLUME 108.4 fl (80.0-96.0); MONO # 0.5 10^3/uL (0.0-0.8); MONO % 8.5 % (0.0-5.0); NEUTROPHILS # 2.4 10^3/uL (1.8-7.7); NEUTROPHILS % 40.1 % (36.0-66.0); PLATELET COUNT, AUTOMATED 164 10^3/uL (150-450); RED CELL DISTRIBUTION WIDTH 12.2 % (11.5-14.5)
[2018-09-08 07:37] LABS: ALBUMIN 2.5 GM/DL (3.2-5.2); ALBUMIN/GLOBULIN RATIO 0.76 (1.00-1.93); ALKALINE PHOSPHATASE 106 U/L (45-117); ALT/SGPT 24 U/L (12-78); ANION GAP 11 MEQ/L (8-16); AST/SGOT 32 U/L (7-37); BILIRUBIN,TOTAL 0.7 MG/DL (0.2-1.0); BLOOD UREA NITROGEN 11 MG/DL (7-18); CALCIUM LEVEL 7.9 MG/DL (8.5-10.1); CARBON DIOXIDE LEVEL 22 MEQ/L (21-32); CHLORIDE LEVEL 113 MEQ/L (98-107); CREATININE FOR GFR 0.73 MG/DL (0.55-1.30); GLOMERULAR FILTRATION RATE > 60.0 (>51); GLUCOSE, FASTING 94 MG/DL (70-100); POTASSIUM SERUM 3.4 MEQ/L (3.5-5.1); SODIUM LEVEL 146 MEQ/L (136-145); TOTAL PROTEIN 5.8 GM/DL (6.4-8.2)
[2018-09-08] MEDS: HumaLOG INSULIN (NovoLOG) PER UNIT SC ×4 (07:58→20:15)
[2018-09-08] MEDS: ATORVASTATIN 20 MG TAB PO (09:25)
[2018-09-08] MEDS: metFORMIN (GLUCOPHAGE) 1000 MG TABLET PO ×2 (09:26→18:25)
[2018-09-08] MEDS: LACTULOSE 20 GM/30 ML SYRUP UD PO ×2 (09:26→20:15)
[2018-09-08] MEDS: DULoxetine 30 MG CAP (CYMBALTA) PO ×2 (09:26→20:15)
[2018-09-08] MEDS: busPIRone 10 MG TAB PO ×2 (09:26→20:14)
[2018-09-08] MEDS: ASPIRIN 81 MG ENTERIC TAB PO (09:26)
[2018-09-08] MEDS: FUROSEMIDE 20 MG TAB PO (09:26)
[2018-09-08] MEDS: GABAPENTIN 300 MG CAP PO ×3 (09:29→20:15)
[2018-09-08] MEDS: PANTOPRAZOLE 40MG TAB (PROTONIX) PO (09:29)
[2018-09-08] MEDS: FLUBLOK(EGG FREE)(QUAD)INFLUENZA VACC 0.5ML SYRINGE (90682)18YRS&OLDER IM (09:30)
[2018-09-08] MEDS: CelecoXIB (CeleBREX) 100 MG CAP PO (10:46)
[2018-09-08] MEDS: oxyBUTYnin 5 MG TAB PO (10:46)
[2018-09-08] MEDS: AMITRIPTYLINE 25 MG TAB PO ×2 (10:46→20:14)
[2018-09-08 12:00] LABS: BEDSIDE GLUCOSE 156 MG/DL (70-105)
[2018-09-08] MEDS: POTASSIUM CHLORIDE 10 MEQ SR TABLET PO (13:29)
[2018-09-08] MEDS: PERCOCET 5MG/325MG TAB PO ×2 (14:26→20:24)
[2018-09-08 17:42] LABS: BEDSIDE GLUCOSE 135 MG/DL (70-105)
[2018-09-08 20:03] LABS: BEDSIDE GLUCOSE 192 MG/DL (70-105)
[2018-09-08] MEDS: BACTRIM 80MG/400MG TAB PO (20:14)
[2018-09-09 06:37] LABS: HEMATOCRIT 34.8 % (36.0-47.0); HEMOGLOBIN 11.7 g/dl (12.0-15.5); MEAN CORPUSCULAR HEMOGLOBIN 36.4 pg (27.0-33.0); MEAN CORPUSCULAR HGB CONC 33.6 g/dl (32.0-36.5); MEAN CORPUSCULAR VOLUME 108.4 fl (80.0-96.0); PLATELET COUNT, AUTOMATED 173 10^3/uL (150-450); RED BLOOD COUNT 3.21 10^6/uL (4.00-5.40); WHITE BLOOD COUNT 6.4 10^3/uL (4.0-10.0)
[2018-09-09 06:57] LABS: AMMONIA 205 uMOL/L (<32)
[2018-09-09 07:07] LABS: ALBUMIN 2.6 GM/DL (3.2-5.2); ALBUMIN/GLOBULIN RATIO 0.84 (1.00-1.93); ALKALINE PHOSPHATASE 107 U/L (45-117); ALT/SGPT 24 U/L (12-78); ANION GAP 8 MEQ/L (8-16); AST/SGOT 33 U/L (7-37); BILIRUBIN,TOTAL 0.5 MG/DL (0.2-1.0); BLOOD UREA NITROGEN 15 MG/DL (7-18); CALCIUM LEVEL 8.2 MG/DL (8.5-10.1); CARBON DIOXIDE LEVEL 24 MEQ/L (21-32); CHLORIDE LEVEL 110 MEQ/L (98-107); CREATININE FOR GFR 0.82 MG/DL (0.55-1.30); GLOMERULAR FILTRATION RATE > 60.0 (>51); GLUCOSE, FASTING 111 MG/DL (70-100); POTASSIUM SERUM 3.9 MEQ/L (3.5-5.1); SODIUM LEVEL 142 MEQ/L (136-145); TOTAL PROTEIN 5.7 GM/DL (6.4-8.2)
[2018-09-09] MEDS: LACTULOSE 20 GM/30 ML SYRUP UD PO ×3 (08:07→20:54)
[2018-09-09] MEDS: HumaLOG INSULIN (NovoLOG) PER UNIT SC ×4 (08:08→20:54)
[2018-09-09] MEDS: metFORMIN (GLUCOPHAGE) 1000 MG TABLET PO ×2 (08:08→17:27)
[2018-09-09] MEDS: PANTOPRAZOLE 40MG TAB (PROTONIX) PO (08:08)
[2018-09-09] MEDS: DULoxetine 30 MG CAP (CYMBALTA) PO ×2 (08:09→20:53)
[2018-09-09] MEDS: CelecoXIB (CeleBREX) 100 MG CAP PO (08:09)
[2018-09-09] MEDS: ATORVASTATIN 20 MG TAB PO (08:10)
[2018-09-09] MEDS: busPIRone 10 MG TAB PO ×2 (08:10→20:54)
[2018-09-09] MEDS: ASPIRIN 81 MG ENTERIC TAB PO (08:10)
[2018-09-09] MEDS: AMITRIPTYLINE 25 MG TAB PO ×2 (08:11→20:54)
[2018-09-09] MEDS: GABAPENTIN 300 MG CAP PO ×3 (08:11→20:53)
[2018-09-09] MEDS: FUROSEMIDE 20 MG TAB PO (08:12)
[2018-09-09] MEDS: PERCOCET 5MG/325MG TAB PO ×3 (08:55→20:55)
[2018-09-09 09:46] LABS: PROTHROMBIN TIME 13.3 SECONDS (12.1-14.4)
[2018-09-09 09:47] LABS: PARTIAL THROMBOPLASTIN TIME 31.7 SECONDS (25.4-37.6)
[2018-09-09 11:47] LABS: BEDSIDE GLUCOSE 97 MG/DL (70-105)
[2018-09-09] MEDS: ZONISAMIDE 50 MG CAP (ZONEGRAN) PO (20:53)
[2018-09-09] MEDS: BACTRIM 80MG/400MG TAB PO (20:53)
[2018-09-09] MEDS: ENOXAPARIN 40 MG/0.4 ML SYRINGE (J1650) SC (20:54)
[2018-09-10 02:49] LABS: BEDSIDE GLUCOSE 125 MG/DL (70-105)
[2018-09-10 02:49] LABS: BEDSIDE GLUCOSE 116 MG/DL (70-105)
[2018-09-10 02:49] LABS: BEDSIDE GLUCOSE 156 MG/DL (70-105)
[2018-09-10] MEDS: HumaLOG INSULIN (NovoLOG) PER UNIT SC ×4 (07:30→21:00)
[2018-09-10 07:57] LABS: AMMONIA 153 uMOL/L (<32)
[2018-09-10 08:02] LABS: ALBUMIN 2.7 GM/DL (3.2-5.2); ALBUMIN/GLOBULIN RATIO 0.79 (1.00-1.93); ALKALINE PHOSPHATASE 103 U/L (45-117); ALT/SGPT 23 U/L (12-78); ANION GAP 8 MEQ/L (8-16); AST/SGOT 31 U/L (7-37); BILIRUBIN,TOTAL 0.5 MG/DL (0.2-1.0); BLOOD UREA NITROGEN 14 MG/DL (7-18); CALCIUM LEVEL 8.6 MG/DL (8.5-10.1); CARBON DIOXIDE LEVEL 24 MEQ/L (21-32); CHLORIDE LEVEL 110 MEQ/L (98-107); CREATININE FOR GFR 0.84 MG/DL (0.55-1.30); GLOMERULAR FILTRATION RATE > 60.0 (>51); GLUCOSE, FASTING 103 MG/DL (70-100); POTASSIUM SERUM 3.9 MEQ/L (3.5-5.1); SODIUM LEVEL 142 MEQ/L (136-145); TOTAL PROTEIN 6.1 GM/DL (6.4-8.2)
[2018-09-10] MEDS: busPIRone 10 MG TAB PO ×2 (08:33→20:08)
[2018-09-10] MEDS: LACTULOSE 20 GM/30 ML SYRUP UD PO ×2 (08:33→20:08)
[2018-09-10] MEDS: DULoxetine 30 MG CAP (CYMBALTA) PO ×2 (08:33→20:08)
[2018-09-10] MEDS: CelecoXIB (CeleBREX) 100 MG CAP PO (08:33)
[2018-09-10] MEDS: PANTOPRAZOLE 40MG TAB (PROTONIX) PO (08:33)
[2018-09-10] MEDS: GABAPENTIN 300 MG CAP PO ×3 (08:33→20:08)
[2018-09-10] MEDS: AMITRIPTYLINE 25 MG TAB PO ×2 (08:34→20:08)
[2018-09-10] MEDS: ASPIRIN 81 MG ENTERIC TAB PO (08:34)
[2018-09-10] MEDS: metFORMIN (GLUCOPHAGE) 1000 MG TABLET PO ×2 (08:34→17:21)
[2018-09-10] MEDS: FUROSEMIDE 20 MG TAB PO (08:34)
[2018-09-10] MEDS: PERCOCET 5MG/325MG TAB PO ×2 (08:44→17:21)
[2018-09-10 12:19] LABS: BEDSIDE GLUCOSE 138 MG/DL (70-105)
[2018-09-10] MEDS: TUBERCULIN PPD 5 UNITS/0.1 ML ID (15:45)
[2018-09-10 17:31] LABS: BEDSIDE GLUCOSE 139 MG/DL (70-105)
[2018-09-10] MEDS: ENOXAPARIN 40 MG/0.4 ML SYRINGE (J1650) SC (20:07)
[2018-09-10] MEDS: ZONISAMIDE 50 MG CAP (ZONEGRAN) PO (20:07)
[2018-09-10] MEDS: BACTRIM 80MG/400MG TAB PO (20:08)
[2018-09-10 21:12] LABS: BEDSIDE GLUCOSE 136 MG/DL (70-105)
[2018-09-11] MEDS: PERCOCET 5MG/325MG TAB PO ×3 (00:58→22:14)
[2018-09-11 05:19] LABS: BEDSIDE GLUCOSE 149 MG/DL (70-105)
[2018-09-11] MEDS: ASPIRIN 81 MG ENTERIC TAB PO (08:23)
[2018-09-11] MEDS: PANTOPRAZOLE 40MG TAB (PROTONIX) PO (08:23)
[2018-09-11] MEDS: HumaLOG INSULIN (NovoLOG) PER UNIT SC ×5 (08:23→22:06)
[2018-09-11] MEDS: metFORMIN (GLUCOPHAGE) 1000 MG TABLET PO ×2 (08:24→17:23)
[2018-09-11] MEDS: DULoxetine 30 MG CAP (CYMBALTA) PO ×2 (08:24→22:05)
[2018-09-11] MEDS: AMITRIPTYLINE 25 MG TAB PO ×2 (08:24→22:05)
[2018-09-11] MEDS: GABAPENTIN 300 MG CAP PO ×3 (08:24→22:05)
[2018-09-11] MEDS: busPIRone 10 MG TAB PO ×2 (08:24→22:05)
[2018-09-11] MEDS: LACTULOSE 20 GM/30 ML SYRUP UD PO ×2 (08:24→22:05)
[2018-09-11] MEDS: CelecoXIB (CeleBREX) 100 MG CAP PO (08:25)
[2018-09-11] MEDS: FUROSEMIDE 20 MG TAB PO (08:25)
[2018-09-11 11:57] LABS: BEDSIDE GLUCOSE 140 MG/DL (70-105)
[2018-09-11 14:58] LABS: AMMONIA 165 uMOL/L (<32)
[2018-09-11 17:00] LABS: BEDSIDE GLUCOSE 131 MG/DL (70-105)
[2018-09-11 21:23] LABS: BEDSIDE GLUCOSE 196 MG/DL (70-105)
[2018-09-11] MEDS: ZONISAMIDE 50 MG CAP (ZONEGRAN) PO (22:04)
[2018-09-11] MEDS: BACTRIM 80MG/400MG TAB PO (22:05)
[2018-09-11] MEDS: ENOXAPARIN 40 MG/0.4 ML SYRINGE (J1650) SC (22:06)
[2018-09-12 07:44] LABS: AMMONIA 235 uMOL/L (<32)
[2018-09-12 09:30] LABS: BEDSIDE GLUCOSE 139 MG/DL (70-105)
[2018-09-12] MEDS: LACTULOSE 20 GM/30 ML SYRUP UD PO ×2 (09:46→20:32)
[2018-09-12] MEDS: FUROSEMIDE 20 MG TAB PO (09:47)
[2018-09-12] MEDS: busPIRone 10 MG TAB PO ×2 (09:47→20:35)
[2018-09-12] MEDS: PANTOPRAZOLE 40MG TAB (PROTONIX) PO (09:47)
[2018-09-12] MEDS: GABAPENTIN 300 MG CAP PO ×3 (09:47→20:34)
[2018-09-12] MEDS: AMITRIPTYLINE 25 MG TAB PO ×2 (09:47→20:35)
[2018-09-12] MEDS: CelecoXIB (CeleBREX) 100 MG CAP PO (09:47)
[2018-09-12] MEDS: DULoxetine 30 MG CAP (CYMBALTA) PO ×2 (09:48→20:35)
[2018-09-12] MEDS: metFORMIN (GLUCOPHAGE) 1000 MG TABLET PO ×2 (09:48→16:53)
[2018-09-12] MEDS: ASPIRIN 81 MG ENTERIC TAB PO (09:48)
[2018-09-12] MEDS: HumaLOG INSULIN (NovoLOG) PER UNIT SC ×3 (09:48→20:58)
[2018-09-12] MEDS: PERCOCET 5MG/325MG TAB PO ×2 (09:50→20:34)
[2018-09-12 11:26] LABS: BEDSIDE GLUCOSE 158 MG/DL (70-105)
[2018-09-12] MEDS: PPD DOCUMENTATION ENTRY MISC XX (14:00)
[2018-09-12] MEDS ORDERED: **NOTE PATIENT COMMENT** MISC XX (14:45)
[2018-09-12 16:37] LABS: BEDSIDE GLUCOSE 114 MG/DL (70-105)
[2018-09-12] MEDS: ENOXAPARIN 40 MG/0.4 ML SYRINGE (J1650) SC (20:33)
[2018-09-12] MEDS: BACTRIM 80MG/400MG TAB PO (20:34)
[2018-09-12] MEDS: ZONISAMIDE 50 MG CAP (ZONEGRAN) PO (21:00)
[2018-09-13 05:49] LABS: HEMATOCRIT 33.9 % (36.0-47.0); HEMOGLOBIN 11.8 g/dl (12.0-15.5); MEAN CORPUSCULAR HEMOGLOBIN 36.9 pg (27.0-33.0); MEAN CORPUSCULAR HGB CONC 34.8 g/dl (32.0-36.5); MEAN CORPUSCULAR VOLUME 105.9 fl (80.0-96.0); PLATELET COUNT, AUTOMATED 163 10^3/uL (150-450); RED CELL DISTRIBUTION WIDTH 12.5 % (11.5-14.5); WHITE BLOOD COUNT 7.1 10^3/uL (4.0-10.0)
[2018-09-13 06:10] LABS: AMMONIA 113 uMOL/L (<32)
[2018-09-13 06:35] LABS: ALBUMIN 2.8 GM/DL (3.2-5.2); ALKALINE PHOSPHATASE 115 U/L (45-117); ALT/SGPT 27 U/L (12-78); ANION GAP 9 MEQ/L (8-16); AST/SGOT 29 U/L (7-37); BILIRUBIN,TOTAL 0.8 MG/DL (0.2-1.0); BLOOD UREA NITROGEN 17 MG/DL (7-18); CALCIUM LEVEL 8.5 MG/DL (8.5-10.1); CARBON DIOXIDE LEVEL 24 MEQ/L (21-32); CHLORIDE LEVEL 108 MEQ/L (98-107); CREATININE FOR GFR 0.87 MG/DL (0.55-1.30); GLOMERULAR FILTRATION RATE > 60.0 (>51); GLUCOSE, FASTING 107 MG/DL (70-100); MAGNESIUM LEVEL 1.6 MG/DL (1.8-2.4); POTASSIUM SERUM 3.8 MEQ/L (3.5-5.1); SODIUM LEVEL 141 MEQ/L (136-145); TOTAL PROTEIN 6.3 GM/DL (6.4-8.2)
[2018-09-13] MEDS: HumaLOG INSULIN (NovoLOG) PER UNIT SC ×4 (08:32→21:00)
[2018-09-13] MEDS: metFORMIN (GLUCOPHAGE) 1000 MG TABLET PO ×2 (08:34→18:20)
[2018-09-13] MEDS: busPIRone 10 MG TAB PO ×2 (08:34→22:02)
[2018-09-13] MEDS: FUROSEMIDE 20 MG TAB PO (08:34)
[2018-09-13] MEDS: LACTULOSE 20 GM/30 ML SYRUP UD PO ×2 (08:34→22:01)
[2018-09-13] MEDS: PANTOPRAZOLE 40MG TAB (PROTONIX) PO (08:34)
[2018-09-13] MEDS: ASPIRIN 81 MG ENTERIC TAB PO (08:35)
[2018-09-13] MEDS: DULoxetine 30 MG CAP (CYMBALTA) PO ×2 (08:35→22:01)
[2018-09-13] MEDS: AMITRIPTYLINE 25 MG TAB PO ×2 (08:35→22:02)
[2018-09-13] MEDS: CelecoXIB (CeleBREX) 100 MG CAP PO (08:35)
[2018-09-13] MEDS: GABAPENTIN 300 MG CAP PO ×3 (08:35→22:02)
[2018-09-13] MEDS: PERCOCET 5MG/325MG TAB PO ×3 (08:48→23:29)
[2018-09-13] MEDS: BACTRIM 80MG/400MG TAB PO (22:01)
[2018-09-13] MEDS: ENOXAPARIN 40 MG/0.4 ML SYRINGE (J1650) SC (22:03)
[2018-09-14 02:43] LABS: BEDSIDE GLUCOSE 115 MG/DL (70-105)
[2018-09-14 02:43] LABS: BEDSIDE GLUCOSE 190 MG/DL (70-105)
[2018-09-14 02:43] LABS: BEDSIDE GLUCOSE 196 MG/DL (70-105)
[2018-09-14 02:43] LABS: BEDSIDE GLUCOSE 178 MG/DL (70-105)
[2018-09-14 02:43] LABS: BEDSIDE GLUCOSE 132 MG/DL (70-105)
[2018-09-14 05:33] LABS: HEMOGLOBIN 11.4 g/dl (12.0-15.5); MEAN CORPUSCULAR HEMOGLOBIN 36.5 pg (27.0-33.0); MEAN CORPUSCULAR HGB CONC 34.5 g/dl (32.0-36.5); MEAN CORPUSCULAR VOLUME 105.8 fl (80.0-96.0); PLATELET COUNT, AUTOMATED 158 10^3/uL (150-450); RED BLOOD COUNT 3.12 10^6/uL (4.00-5.40); RED CELL DISTRIBUTION WIDTH 12.2 % (11.5-14.5); WHITE BLOOD COUNT 5.9 10^3/uL (4.0-10.0)
[2018-09-14 05:53] LABS: AMMONIA 174 uMOL/L (<32)
[2018-09-14 06:09] LABS: ALBUMIN 2.8 GM/DL (3.2-5.2); ALBUMIN/GLOBULIN RATIO 0.78 (1.00-1.93); ALKALINE PHOSPHATASE 108 U/L (45-117); ALT/SGPT 26 U/L (12-78); ANION GAP 8 MEQ/L (8-16); AST/SGOT 29 U/L (7-37); BILIRUBIN,TOTAL 0.7 MG/DL (0.2-1.0); BLOOD UREA NITROGEN 15 MG/DL (7-18); CALCIUM LEVEL 8.4 MG/DL (8.5-10.1); CARBON DIOXIDE LEVEL 27 MEQ/L (21-32); CHLORIDE LEVEL 107 MEQ/L (98-107); CREATININE FOR GFR 0.77 MG/DL (0.55-1.30); GLOMERULAR FILTRATION RATE > 60.0 (>51); GLUCOSE, FASTING 134 MG/DL (70-100); MAGNESIUM LEVEL 1.7 MG/DL (1.8-2.4); POTASSIUM SERUM 3.4 MEQ/L (3.5-5.1); SODIUM LEVEL 142 MEQ/L (136-145); TOTAL PROTEIN 6.4 GM/DL (6.4-8.2)
[2018-09-14] MEDS: HumaLOG INSULIN (NovoLOG) PER UNIT SC (08:01)
[2018-09-14] MEDS: metFORMIN (GLUCOPHAGE) 1000 MG TABLET PO ×2 (08:02→17:15)
[2018-09-14] MEDS: GABAPENTIN 300 MG CAP PO ×3 (08:02→21:09)
[2018-09-14] MEDS: CelecoXIB (CeleBREX) 100 MG CAP PO (08:02)
[2018-09-14] MEDS: AMITRIPTYLINE 25 MG TAB PO ×2 (08:02→21:09)
[2018-09-14] MEDS: FUROSEMIDE 20 MG TAB PO (08:02)
[2018-09-14] MEDS: ASPIRIN 81 MG ENTERIC TAB PO (08:02)
[2018-09-14] MEDS: DULoxetine 30 MG CAP (CYMBALTA) PO ×2 (08:03→21:09)
[2018-09-14] MEDS: busPIRone 10 MG TAB PO ×2 (08:03→21:09)
[2018-09-14] MEDS: LACTULOSE 20 GM/30 ML SYRUP UD PO ×2 (08:03→21:09)
[2018-09-14] MEDS: PANTOPRAZOLE 40MG TAB (PROTONIX) PO (08:03)
[2018-09-14] MEDS: PERCOCET 5MG/325MG TAB PO ×2 (09:32→17:19)
[2018-09-14 11:54] LABS: BEDSIDE GLUCOSE 120 MG/DL (70-105)
[2018-09-14 17:08] LABS: BEDSIDE GLUCOSE 155 MG/DL (70-105)
[2018-09-14 21:02] LABS: BEDSIDE GLUCOSE 113 MG/DL (70-105)
[2018-09-14] MEDS: BACTRIM 80MG/400MG TAB PO (21:09)
[2018-09-14] MEDS: ENOXAPARIN 40 MG/0.4 ML SYRINGE (J1650) SC (21:09)
[2018-09-15] MEDS: PERCOCET 5MG/325MG TAB PO (02:49)
[2018-09-15 06:14] LABS: HEMATOCRIT 33.9 % (36.0-47.0); HEMOGLOBIN 11.7 g/dl (12.0-15.5); MEAN CORPUSCULAR HEMOGLOBIN 36.6 pg (27.0-33.0); MEAN CORPUSCULAR HGB CONC 34.5 g/dl (32.0-36.5); MEAN CORPUSCULAR VOLUME 105.9 fl (80.0-96.0); PLATELET COUNT, AUTOMATED 170 10^3/uL (150-450); WHITE BLOOD COUNT 6.8 10^3/uL (4.0-10.0)
[2018-09-15 06:30] LABS: AMMONIA 157 uMOL/L (<32)
[2018-09-15 06:34] LABS: ALBUMIN 2.8 GM/DL (3.2-5.2); ALBUMIN/GLOBULIN RATIO 0.76 (1.00-1.93); ALKALINE PHOSPHATASE 113 U/L (45-117); ALT/SGPT 27 U/L (12-78); ANION GAP 8 MEQ/L (8-16); AST/SGOT 37 U/L (7-37); BILIRUBIN,TOTAL 0.6 MG/DL (0.2-1.0); BLOOD UREA NITROGEN 16 MG/DL (7-18); CALCIUM LEVEL 8.7 MG/DL (8.5-10.1); CARBON DIOXIDE LEVEL 24 MEQ/L (21-32); CHLORIDE LEVEL 109 MEQ/L (98-107); CREATININE FOR GFR 0.78 MG/DL (0.55-1.30); GLOMERULAR FILTRATION RATE > 60.0 (>51); GLUCOSE, FASTING 129 MG/DL (70-100); MAGNESIUM LEVEL 1.8 MG/DL (1.8-2.4); POTASSIUM SERUM 3.9 MEQ/L (3.5-5.1); SODIUM LEVEL 141 MEQ/L (136-145); TOTAL PROTEIN 6.5 GM/DL (6.4-8.2)
[2018-09-15] MEDS: PANTOPRAZOLE 40MG TAB (PROTONIX) PO (08:41)
[2018-09-15] MEDS: metFORMIN (GLUCOPHAGE) 1000 MG TABLET PO ×2 (08:41→17:52)
[2018-09-15] MEDS: CelecoXIB (CeleBREX) 100 MG CAP PO (08:41)
[2018-09-15] MEDS: busPIRone 10 MG TAB PO ×2 (08:41→21:16)
[2018-09-15] MEDS: LACTULOSE 20 GM/30 ML SYRUP UD PO ×2 (08:41→21:16)
[2018-09-15] MEDS: FUROSEMIDE 20 MG TAB PO (08:41)
[2018-09-15] MEDS: ASPIRIN 81 MG ENTERIC TAB PO (08:41)
[2018-09-15] MEDS: DULoxetine 30 MG CAP (CYMBALTA) PO ×2 (08:41→21:16)
[2018-09-15] MEDS: GABAPENTIN 300 MG CAP PO ×3 (08:41→21:17)
[2018-09-15] MEDS: AMITRIPTYLINE 25 MG TAB PO ×2 (08:41→21:17)
[2018-09-15] MEDS: oxyCODONE 5MG TAB PO ×2 (10:39→18:46)
[2018-09-15] MEDS: BACTRIM 80MG/400MG TAB PO (21:16)
[2018-09-15] MEDS: ENOXAPARIN 40 MG/0.4 ML SYRINGE (J1650) SC (21:17)
[2018-09-16 03:46] LABS: BEDSIDE GLUCOSE 121 MG/DL (70-105)
[2018-09-16 03:46] LABS: BEDSIDE GLUCOSE 278 MG/DL (70-105)
[2018-09-16 03:46] LABS: BEDSIDE GLUCOSE 216 MG/DL (70-105)
[2018-09-16 06:42] LABS: HEMATOCRIT 31.8 % (36.0-47.0); HEMOGLOBIN 10.9 g/dl (12.0-15.5); MEAN CORPUSCULAR HEMOGLOBIN 37.2 pg (27.0-33.0); MEAN CORPUSCULAR HGB CONC 34.3 g/dl (32.0-36.5); MEAN CORPUSCULAR VOLUME 108.5 fl (80.0-96.0); PLATELET COUNT, AUTOMATED 163 10^3/uL (150-450); RED BLOOD COUNT 2.93 10^6/uL (4.00-5.40); RED CELL DISTRIBUTION WIDTH 12.5 % (11.5-14.5); WHITE BLOOD COUNT 6.5 10^3/uL (4.0-10.0)
[2018-09-16 07:02] LABS: AMMONIA 109 uMOL/L (<32)
[2018-09-16 07:08] LABS: ALBUMIN 2.6 GM/DL (3.2-5.2); ALBUMIN/GLOBULIN RATIO 0.76 (1.00-1.93); ALKALINE PHOSPHATASE 107 U/L (45-117); ALT/SGPT 28 U/L (12-78); ANION GAP 8 MEQ/L (8-16); AST/SGOT 30 U/L (7-37); BILIRUBIN,TOTAL 0.7 MG/DL (0.2-1.0); BLOOD UREA NITROGEN 13 MG/DL (7-18); CALCIUM LEVEL 8.3 MG/DL (8.5-10.1); CARBON DIOXIDE LEVEL 26 MEQ/L (21-32); CHLORIDE LEVEL 108 MEQ/L (98-107); CREATININE FOR GFR 0.85 MG/DL (0.55-1.30); GLOMERULAR FILTRATION RATE > 60.0 (>51); GLUCOSE, FASTING 128 MG/DL (70-100); MAGNESIUM LEVEL 1.7 MG/DL (1.8-2.4); POTASSIUM SERUM 3.4 MEQ/L (3.5-5.1); SODIUM LEVEL 142 MEQ/L (136-145)
[2018-09-16] MEDS: CelecoXIB (CeleBREX) 100 MG CAP PO (08:19)
[2018-09-16] MEDS: LACTULOSE 20 GM/30 ML SYRUP UD PO ×2 (08:19→21:39)
[2018-09-16] MEDS: PANTOPRAZOLE 40MG TAB (PROTONIX) PO (08:19)
[2018-09-16] MEDS: AMITRIPTYLINE 25 MG TAB PO (08:20)
[2018-09-16] MEDS: ASPIRIN 81 MG ENTERIC TAB PO (08:20)
[2018-09-16] MEDS: FUROSEMIDE 20 MG TAB PO (08:20)
[2018-09-16] MEDS: busPIRone 10 MG TAB PO ×2 (08:20→21:38)
[2018-09-16] MEDS: GABAPENTIN 300 MG CAP PO ×3 (08:21→21:38)
[2018-09-16] MEDS: DULoxetine 30 MG CAP (CYMBALTA) PO ×2 (08:21→21:38)
[2018-09-16] MEDS: oxyCODONE 5MG TAB PO ×3 (08:23→22:37)
[2018-09-16] MEDS: metFORMIN (GLUCOPHAGE) 1000 MG TABLET PO ×2 (08:23→18:00)
[2018-09-16] MEDS: POTASSIUM CHLORIDE 10 MEQ SR TABLET PO ×2 (11:04→21:38)
[2018-09-16 11:37] LABS: BEDSIDE GLUCOSE 184 MG/DL (70-105)
[2018-09-16 17:10] LABS: BEDSIDE GLUCOSE 165 MG/DL (70-105)
[2018-09-16 19:17] LABS: KETONE, URINE AUTO RFX TRACE mg/dL (NEGATIVE); LEUKOCYTE ESTERASE UR AUTO RFX NEGATIVE (NEGATIVE); MUCUS, URINE RFX SMALL (NEGATIVE); RBC, URINE AUTO RFX 0 /HPF (0-3); SPECIFIC GRAVITY UR AUTO RFX 1.016 (1.002-1.035); SQUAM EPITHELIAL CELL UR AURFX 1 /HPF (0-6); WBC, URINE AUTO RFX 1 /HPF (0-3)
[2018-09-16 19:57] LABS: NITRITE, URINE AUTO RFX POSITIVE (NEGATIVE)
[2018-09-16 21:11] LABS: BEDSIDE GLUCOSE 123 MG/DL (70-105)
[2018-09-16] MEDS: BACTRIM 80MG/400MG TAB PO (21:38)
[2018-09-16] MEDS: ENOXAPARIN 40 MG/0.4 ML SYRINGE (J1650) SC (21:39)
[2018-09-16] MEDS: DEXTRAN/HYPROMELLOSE OPHTH SOLN 15 ML(GENTEAL TEARS) OU (21:39)
[2018-09-17] MEDS: oxyCODONE 5MG TAB PO ×2 (04:43→12:06)
[2018-09-17 06:31] LABS: HEMATOCRIT 31.9 % (36.0-47.0); HEMOGLOBIN 10.9 g/dl (12.0-15.5); MEAN CORPUSCULAR HEMOGLOBIN 37.2 pg (27.0-33.0); MEAN CORPUSCULAR HGB CONC 34.2 g/dl (32.0-36.5); MEAN CORPUSCULAR VOLUME 108.9 fl (80.0-96.0); PLATELET COUNT, AUTOMATED 160 10^3/uL (150-450); RED BLOOD COUNT 2.93 10^6/uL (4.00-5.40); RED CELL DISTRIBUTION WIDTH 12.5 % (11.5-14.5); WHITE BLOOD COUNT 7.1 10^3/uL (4.0-10.0)
[2018-09-17 06:56] LABS: AMMONIA 94 uMOL/L (<32)
[2018-09-17 07:00] LABS: ALBUMIN 2.6 GM/DL (3.2-5.2); ALBUMIN/GLOBULIN RATIO 0.72 (1.00-1.93); ALKALINE PHOSPHATASE 110 U/L (45-117); ALT/SGPT 29 U/L (12-78); ANION GAP 9 MEQ/L (8-16); AST/SGOT 42 U/L (7-37); BILIRUBIN,TOTAL 0.7 MG/DL (0.2-1.0); BLOOD UREA NITROGEN 9 MG/DL (7-18); CALCIUM LEVEL 8.7 MG/DL (8.5-10.1); CARBON DIOXIDE LEVEL 25 MEQ/L (21-32); CHLORIDE LEVEL 107 MEQ/L (98-107); GLOMERULAR FILTRATION RATE > 60.0 (>51); GLUCOSE, FASTING 121 MG/DL (70-100); MAGNESIUM LEVEL 1.6 MG/DL (1.8-2.4); POTASSIUM SERUM 3.9 MEQ/L (3.5-5.1); SODIUM LEVEL 141 MEQ/L (136-145); TOTAL PROTEIN 6.2 GM/DL (6.4-8.2)
[2018-09-17] MEDS: busPIRone 10 MG TAB PO (10:28)
[2018-09-17] MEDS: CelecoXIB (CeleBREX) 100 MG CAP PO (10:29)
[2018-09-17] MEDS: ASPIRIN 81 MG ENTERIC TAB PO (10:29)
[2018-09-17] MEDS: FUROSEMIDE 20 MG TAB PO (10:29)
[2018-09-17] MEDS: metFORMIN (GLUCOPHAGE) 1000 MG TABLET PO (10:29)
[2018-09-17] MEDS: PANTOPRAZOLE 40MG TAB (PROTONIX) PO (10:29)
[2018-09-17] MEDS: DULoxetine 30 MG CAP (CYMBALTA) PO (10:30)
[2018-09-17] MEDS: POTASSIUM CHLORIDE 10 MEQ SR TABLET PO (10:30)
[2018-09-17] MEDS: GABAPENTIN 300 MG CAP PO (10:31)
[2018-09-17] MEDS: LACTULOSE 20 GM/30 ML SYRUP UD PO (10:31)
[2018-09-17 11:28] LABS: BEDSIDE GLUCOSE 192 MG/DL (70-105)
== END 2018-09-17 13:00 | DRG 91 ==
LOC: M MS5PR 09-08 17:10 → M ED 13:42 → M ED INP 19:01 → M MS4PR 21:37
DX: R29.6 Repeated falls (principal); K72.00 Acute and subacute hepatic failure without coma; N39.0 Urinary tract infection, site not specified; E72.20 Disorder of urea cycle metabolism, unspecified; N31.9 Neuromuscular dysfunction of bladder, unspecified; M51.16 Intervertebral disc disorders with radiculopathy, lumbar region; M51.17 Intervertebral disc disorders with radiculopathy, lumbosacral region; B96.20 Unspecified Escherichia coli [E. coli] as the cause of diseases classified elsewhere; T46.6X5A Adverse effect of antihyperlipidemic and antiarteriosclerotic drugs, initial encounter; T43.8X5A Adverse effect of other psychotropic drugs, initial encounter; T37.0X5A Adverse effect of sulfonamides, initial encounter; G47.33 Obstructive sleep apnea (adult) (pediatric); E11.40 Type 2 diabetes mellitus with diabetic neuropathy, unspecified; E53.8 Deficiency of other specified B group vitamins; M21.371 Foot drop, right foot; M21.372 Foot drop, left foot; Z98.1 Arthrodesis status; Z79.82 Long term (current) use of aspirin; Z79.84 Long term (current) use of oral hypoglycemic drugs; Z79.899 Other long term (current) drug therapy; Z79.51 Long term (current) use of inhaled steroids; Z98.84 Bariatric surgery status; Z91.040 Latex allergy status; Z88.1 Allergy status to other antibiotic agents; Z88.8 Allergy status to other drugs, medicaments and biological substances; Z87.440 Personal history of urinary (tract) infections

== ENCOUNTER 2018-09-18 14:36 | Outpatient (REF) ==
[2018-09-22 07:41] LABS: HEMATOCRIT 35.1 % (36.0-47.0); HEMOGLOBIN 11.7 g/dl (12.0-15.5); MEAN CORPUSCULAR HEMOGLOBIN 37.4 pg (27.0-33.0); MEAN CORPUSCULAR HGB CONC 33.3 g/dl (32.0-36.5); MEAN CORPUSCULAR VOLUME 112.1 fl (80.0-96.0); PLATELET COUNT, AUTOMATED 198 10^3/uL (150-450); RED BLOOD COUNT 3.13 10^6/uL (4.00-5.40); WHITE BLOOD COUNT 6.5 10^3/uL (4.0-10.0)
[2018-09-22 08:07] LABS: AMMONIA 49 uMOL/L (<32)
[2018-09-22 08:09] LABS: ANION GAP 7 MEQ/L (8-16); BLOOD UREA NITROGEN 10 MG/DL (7-18); CALCIUM LEVEL 8.5 MG/DL (8.5-10.1); CARBON DIOXIDE LEVEL 28 MEQ/L (21-32); CHLORIDE LEVEL 109 MEQ/L (98-107); CREATININE FOR GFR 0.77 MG/DL (0.55-1.30); GLOMERULAR FILTRATION RATE > 60.0 (>51); GLUCOSE, FASTING 103 MG/DL (70-100); POTASSIUM SERUM 4.7 MEQ/L (3.5-5.1); SODIUM LEVEL 144 MEQ/L (136-145)
== END 2018-09-22 ==
DX: G93.40 Encephalopathy, unspecified (principal)

== ENCOUNTER → 2018-09-18 | Outpatient (REF) ==
[2018-09-18 11:06] LABS: AMMONIA 107 uMOL/L (<32)
[2018-09-18 11:32] LABS: HEMATOCRIT 32.4 % (36.0-47.0); HEMOGLOBIN 10.8 g/dl (12.0-15.5); MEAN CORPUSCULAR HEMOGLOBIN 36.1 pg (27.0-33.0); MEAN CORPUSCULAR HGB CONC 33.3 g/dl (32.0-36.5); MEAN CORPUSCULAR VOLUME 108.4 fl (80.0-96.0); PLATELET COUNT, AUTOMATED 175 10^3/uL (150-450); RED BLOOD COUNT 2.99 10^6/uL (4.00-5.40); RED CELL DISTRIBUTION WIDTH 12.6 % (11.5-14.5)
[2018-09-18 12:13] LABS: ANION GAP 9 MEQ/L (8-16); BLOOD UREA NITROGEN 10 MG/DL (7-18); CALCIUM LEVEL 8.6 MG/DL (8.5-10.1); CARBON DIOXIDE LEVEL 27 MEQ/L (21-32); CHLORIDE LEVEL 106 MEQ/L (98-107); CREATININE FOR GFR 0.65 MG/DL (0.55-1.30); GLOMERULAR FILTRATION RATE > 60.0 (>51); GLUCOSE, FASTING 101 MG/DL (70-100); POTASSIUM SERUM 4.1 MEQ/L (3.5-5.1); SODIUM LEVEL 142 MEQ/L (136-145)
== END ==
DX: G93.40 Encephalopathy, unspecified (principal)

== ENCOUNTER → 2018-09-25 | Outpatient (REF) ==
[2018-09-25 14:17] LABS: AMMONIA 69 uMOL/L (<32)
[2018-09-25 14:17] LABS: ANION GAP 11 MEQ/L (8-16); BLOOD UREA NITROGEN 7 MG/DL (7-18); CALCIUM LEVEL 8.7 MG/DL (8.5-10.1); CARBON DIOXIDE LEVEL 25 MEQ/L (21-32); CHLORIDE LEVEL 107 MEQ/L (98-107); CREATININE FOR GFR 0.86 MG/DL (0.55-1.30); GLOMERULAR FILTRATION RATE > 60.0 (>51); GLUCOSE, FASTING 201 MG/DL (70-100); POTASSIUM SERUM 4.5 MEQ/L (3.5-5.1); SODIUM LEVEL 143 MEQ/L (136-145)
[2018-09-25 14:25] LABS: HEMOGLOBIN 13.4 g/dl (12.0-15.5); MEAN CORPUSCULAR HEMOGLOBIN 36.8 pg (27.0-33.0); MEAN CORPUSCULAR HGB CONC 33.5 g/dl (32.0-36.5); MEAN CORPUSCULAR VOLUME 109.9 fl (80.0-96.0); PLATELET COUNT, AUTOMATED 185 10^3/uL (150-450); RED BLOOD COUNT 3.64 10^6/uL (4.00-5.40); RED CELL DISTRIBUTION WIDTH 12.7 % (11.5-14.5); WHITE BLOOD COUNT 5.7 10^3/uL (4.0-10.0)
== END ==
DX: G93.41 Metabolic encephalopathy (principal)

== ENCOUNTER → 2018-09-29 | Outpatient (REF) ==
[2018-09-29 11:26] LABS: HEMATOCRIT 34.9 % (36.0-47.0); HEMOGLOBIN 11.6 g/dl (12.0-15.5); MEAN CORPUSCULAR HEMOGLOBIN 37.4 pg (27.0-33.0); MEAN CORPUSCULAR HGB CONC 33.2 g/dl (32.0-36.5); MEAN CORPUSCULAR VOLUME 112.6 fl (80.0-96.0); PLATELET COUNT, AUTOMATED 198 10^3/uL (150-450); RED CELL DISTRIBUTION WIDTH 12.9 % (11.5-14.5); WHITE BLOOD COUNT 5.5 10^3/uL (4.0-10.0)
[2018-09-29 11:59] LABS: AMMONIA 47 uMOL/L (<32)
[2018-09-29 12:12] LABS: ANION GAP 7 MEQ/L (8-16); BLOOD UREA NITROGEN 8 MG/DL (7-18); CALCIUM LEVEL 9.2 MG/DL (8.5-10.1); CARBON DIOXIDE LEVEL 28 MEQ/L (21-32); CHLORIDE LEVEL 107 MEQ/L (98-107); CREATININE FOR GFR 0.85 MG/DL (0.55-1.30); GLOMERULAR FILTRATION RATE > 60.0 (>51); GLUCOSE, FASTING 130 MG/DL (70-100); POTASSIUM SERUM 4.8 MEQ/L (3.5-5.1); SODIUM LEVEL 142 MEQ/L (136-145)
== END ==
DX: G93.40 Encephalopathy, unspecified (principal)

== ENCOUNTER → 2018-10-07 | Outpatient (REF) ==
[2018-10-07 10:32] LABS: HEMATOCRIT 33.3 % (36.0-47.0); HEMOGLOBIN 11.1 g/dl (12.0-15.5); MEAN CORPUSCULAR HEMOGLOBIN 36.3 pg (27.0-33.0); MEAN CORPUSCULAR HGB CONC 33.3 g/dl (32.0-36.5); MEAN CORPUSCULAR VOLUME 108.8 fl (80.0-96.0); PLATELET COUNT, AUTOMATED 200 10^3/uL (150-450); RED BLOOD COUNT 3.06 10^6/uL (4.00-5.40); RED CELL DISTRIBUTION WIDTH 12.7 % (11.5-14.5); WHITE BLOOD COUNT 5.4 10^3/uL (4.0-10.0)
[2018-10-07 10:57] LABS: AMMONIA 84 uMOL/L (<32)
[2018-10-07 10:57] LABS: ANION GAP 10 MEQ/L (8-16); BLOOD UREA NITROGEN 9 MG/DL (7-18); CALCIUM LEVEL 8.7 MG/DL (8.5-10.1); CARBON DIOXIDE LEVEL 24 MEQ/L (21-32); CHLORIDE LEVEL 107 MEQ/L (98-107); GLOMERULAR FILTRATION RATE > 60.0 (>51); GLUCOSE, FASTING 139 MG/DL (70-100); POTASSIUM SERUM 3.8 MEQ/L (3.5-5.1); SODIUM LEVEL 141 MEQ/L (136-145)
== END ==
DX: G93.41 Metabolic encephalopathy (principal)

== ENCOUNTER → 2018-10-22 | Outpatient (REF) | payer MEDICARE, MEDICAID, OTHER ==
[~2018-10-22] MED LIST changes: +*PREMTA PO; +/BACL20TA PO; +/DULO30CA PO; +/ESOM40CA PO; +/ZOLP6ER PO; +3 DA0.1C TOP; +ACET65TA OR; +ALLE180T33 PO; +AMBI12.52 PO; +AMBIEN PO; +AMIT25TA PO; +AMOX250C3 PO; +ASPE4PAD2 EXT; +ASPI1TAB PO; +ASPI81TAEC PO; +ASTE0.15; +ATOR1TAB21 PO; +BACT400T PO; +BUSP10TA PO; +BUSP15TA PO; +BUSP30TA PO; +BUSPAR PO; +CALCIUM/VIT D PO; +CALCTAB68 PO; +CELE100C PO; +CELE1CAP4 PO; +CETI10TA PO; +COLA100C2 OR; +COLA100C5 PO; +CYCL10TA PO; +DICL13PA TD; +DICL13PA TOP; +DULO1CAP2 PO; +DULO1CAP3 PO; -E-Z-GAS II EFFERVESCENT PACKET (SODIUM BICARB./CITRIC ACID/SIMETHICONE) As Ordered; -E-Z-HD 98% w/w 340GM SUSP BTL As Ordered; -E-Z-PAQUE 96% w/w SUSP 176GM BTL As Ordered; +FISH1000 PO; +FISH500C PO; +FLAG500T OR; +FURO20TA2 PO; +GABA-843 PO; +GABA800T PO; +HYDR-3716 PO; +HYDR1CAP25 PO; +KEFL250C OR; +KEFL500C17 PO; +KLOR10TA76 PO; +LACT10SO3 PO; +LIDO5DIS TOP; +MELA10CA PO; +METF10004 PO; +METH1TAB40 PO; +MINEOIL60 PO; +MIRA3350 PO; +MIRA33504 PO; +MIRALEX OR; +MIRALEX PO; +MULTTAB17 PO; +NAPR500T6 PO; +NEUR300C PO; +NEUR600T PO; +NORC1TAB4 PO; +NORT10CA2 PO; +NYST1POW9 TOP; +OMEP20TA7 PO; +OMEP40CA2 PO; +OXYB5TAB10 PO; +OXYC-517 PO; +OXYC5CAP4 OR; +OXYCO5TA PO; +PEG1POW PO; +PERC5TAB8 PO; +PERC7.5T11 PO; +PERCOCET PO; +REST0.05 OU; +RIZA10TA2 PO; +SULF1TAB72 PO; +TRUL0.5I SC; +TYLE325T5 PO; +VICT18IN SC; +VICTOZA SC; +VIST25CA PO; +VITA-113 PO; +VITA200016 PO; +VITA500T3 PO; +VITMTA PO; +XIFA200T2 PO; +ZOLP5TAB PO; +ZONI100C2 PO; +ZONI25CA2 PO; +[UNRECOGNIZED DRUG - OTHER]
[2018-10-22 09:38] LABS: BASO % 0.4 % (0.0-1.0); EOS # 0.5 10^3/uL (0.0-0.50); EOS % 8.6 % (0.0-3.0); HEMOGLOBIN 12.1 g/dl (12.0-15.5); LYMPH # 1.8 10^3/uL (1.5-4.5); LYMPH % 32.8 % (24.0-44.0); MEAN CORPUSCULAR HEMOGLOBIN 36.6 pg (27.0-33.0); MEAN CORPUSCULAR HGB CONC 33.6 g/dl (32.0-36.5); MEAN CORPUSCULAR VOLUME 108.8 fl (80.0-96.0); MONO # 0.6 10^3/uL (0.0-0.8); MONO % 10.4 % (0.0-5.0); NEUTROPHILS # 2.5 10^3/uL (1.8-7.7); NEUTROPHILS % 47.4 % (36.0-66.0); PLATELET COUNT, AUTOMATED 180 10^3/uL (150-450); RED BLOOD COUNT 3.31 10^6/uL (4.00-5.40); WHITE BLOOD COUNT 5.4 10^3/uL (4.0-10.0)
[2018-10-22 09:58] LABS: ALBUMIN 3.2 GM/DL (3.2-5.2); ALT/SGPT 29 U/L (12-78); BILIRUBIN,TOTAL 0.6 MG/DL (0.2-1.0); BLOOD UREA NITROGEN 8 MG/DL (7-18); CALCIUM LEVEL 8.9 MG/DL (8.5-10.1); CARBON DIOXIDE LEVEL 28 MEQ/L (21-32); CHLORIDE LEVEL 104 MEQ/L (98-107); GLOMERULAR FILTRATION RATE > 60.0 (>51); GLUCOSE, FASTING 214 MG/DL (70-100); POTASSIUM SERUM 4.4 MEQ/L (3.5-5.1); SODIUM LEVEL 140 MEQ/L (136-145); TOTAL PROTEIN 6.4 GM/DL (6.4-8.2)
[2018-10-22 10:06] LABS: TOTAL 25(OH) VITAMIN D 51.5 NG/ML (30.0-100.0)
[2018-10-22 10:07] LABS: VITAMIN B12 LEVEL 409 PG/ML (247-911)
[2018-10-22 15:53] LABS: HEMOGLOBIN A1c 6.4 %
== END ==
PROVIDERS: ATTEND Physician Assistant Medical
DX: K75.81 Nonalcoholic steatohepatitis (NASH) (principal); Z98.84 Bariatric surgery status; E11.9 Type 2 diabetes mellitus without complications; E55.9 Vitamin D deficiency, unspecified; E53.8 Deficiency of other specified B group vitamins; Z79.899 Other long term (current) drug therapy

== ENCOUNTER → 2018-11-14 | Outpatient (REF) | payer MEDICARE, MEDICAID, OTHER ==
[2018-11-14 18:55] LABS: APPEARANCE, URINE CLEAR (CLEAR); BACTERIA, URINE AUTO 1+ (NEGATIVE); BILIRUBIN, URINE AUTO NEGATIVE (NEGATIVE); BLOOD, URINE BLOOD NEGATIVE (NEGATIVE); COLOR, URINE YELLOW (YELLOW); GLUCOSE, URINE (UA) AUTO 3+ mg/dL (NEGATIVE); KETONE, URINE AUTO TRACE mg/dL (NEGATIVE); LEUKOCYTE ESTERASE, URINE AUTO NEGATIVE (NEGATIVE); MUCUS, URINE SMALL (NEGATIVE); NITRITE, URINE AUTO NEGATIVE (NEGATIVE); PROTEIN, URINE AUTO NEGATIVE (NEGATIVE); RBC, URINE AUTO 0 /HPF (0-3); SPECIFIC GRAVITY URINE AUTO 1.015 (1.002-1.035); SQUAMOUS EPITHELIAL CELL UR AU 0 /HPF (0-6); WBC, URINE AUTO 0 /HPF (0-3)
== END ==
PROVIDERS: ATTEND Family Medicine
DX: R35.0 Frequency of micturition (principal)

== ENCOUNTER → 2018-12-15 | Outpatient (REF) | payer MEDICARE, MEDICAID ==
[~2018-12-15] MED LIST changes: -GABA800T PO; +GABA800T4 PO
[2018-12-15 19:01] LABS: INR 0.97
[2018-12-15 19:02] LABS: PARTIAL THROMBOPLASTIN TIME 28.8 SECONDS (25.4-37.6)
[2018-12-15 19:05] LABS: ALBUMIN 3.6 GM/DL (3.2-5.2); ALT/SGPT 27 U/L (12-78); BILIRUBIN,TOTAL 0.6 MG/DL (0.2-1.0); BLOOD UREA NITROGEN 9 MG/DL (7-18); CALCIUM LEVEL 9.1 MG/DL (8.5-10.1); CARBON DIOXIDE LEVEL 27 MEQ/L (21-32); CHLORIDE LEVEL 102 MEQ/L (98-107); CHOLESTEROL LEVEL 150 MG/DL (<200); CPK CREATINE PHOSPHOKINASE 68 U/L (26-192); CREATININE FOR GFR 0.91 MG/DL (0.55-1.30); GLOMERULAR FILTRATION RATE > 60.0 (>51); GLUCOSE, FASTING 120 MG/DL (70-100); HDL CHOLESTEROL 40 MG/DL (>40); LDL CHOLESTEROL 70 MG/DL (<100); MAGNESIUM LEVEL 1.8 MG/DL (1.8-2.4); NON-HDL-C 110 MG/DL; SODIUM LEVEL 139 MEQ/L (136-145); TRIGLYCERIDES LEVEL 198 MG/DL (<150)
[2018-12-15 19:33] LABS: HEMOGLOBIN A1c 7.5 %
== END ==
LOC: M SFHCPLAZ 16:11
PROVIDERS: ATTEND Family Medicine
DX: K72.90 Hepatic failure, unspecified without coma (principal); E11.3299 Type 2 diabetes mellitus wit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, unspecified eye; I87.2 Venous insufficiency (chronic) (peripheral)
CPT/HCPCS: 36415; 80053; 80061; 82140; 82550; 83036; 83735; 85046; 85610; 85730; G0463

== ENCOUNTER → 2019-01-01 | Outpatient (CLI) | payer MEDICARE, MEDICAID ==
--- NOTE | 2019-01-02 08:44 | REP ---
Clinical: Incisional hernia. Abdominal pain. Technique: Axial noncontrast images from the lung bases to the pubic symphysis with coronal and sagittal re-formations. Comparison: 09/09/2007. Findings: Lung thorne are clear. Liver, spleen, pancreas, bilateral adrenal glands and kidneys are essentially normal for noncontrast evaluation. Evidence for prior gastric bypass surgery and cholecystectomy noted within the upper abdomen. The enteric system is without obstruction or acute inflammatory process. Scattered colonic diverticula noted without acute diverticulitis. Evidence for prior appendectomy in the right lower quadrant. A very small fat containing supraumbilical ventral hernia and periumbilical hernia are identified (images [id number]). Pelvis demonstrates normal bladder and age-appropriate uterus/adnexa. Scattered sigmoid diverticula noted. No pelvic fluid or ascites. No free air. No adenopathy. Abdominal aorta without aneurysm. Surrounding musculoskeletal structures demonstrate age-related degenerative changes and evidence for prior lumbar laminectomy and posterior fusion. Impression: 1. A very small fat containing supraumbilical and periumbilical hernias measuring less than 1 cm maximal depth. 2. Few scattered sigmoid diverticula without acute diverticulitis. 3. Evidence for prior gastric bypass surgery, cholecystectomy and appendectomy. 4. No acute abdominopelvic pathology appreciated. Specifically, no ascites, focal inflammatory stranding, or adenopathy. Electronically Signed by Jaycob Reed MD 01/02/2019 08:35 A
== END ==
LOC: M RAD 16:29
PROVIDERS: ATTEND Surgery
DX: K43.2 Incisional hernia without obstruction or gangrene (principal)

== ENCOUNTER → 2019-02-05 | Outpatient (REF) | payer MEDICARE, MEDICAID ==
[~2019-02-05] MED LIST changes: -/BACL20TA PO; -/DULO30CA PO; -/ESOM40CA PO; -ASPI1TAB PO; +ASPI81TA26 PO; +BACL1TAB9 PO; +CYMB1CAP5 PO; +NEXI1CAP3 PO; -NORC1TAB4 PO; +NORC1TAB7 PO
[2019-02-05 15:18] LABS: HEMOGLOBIN A1c 7.2 %
[2019-02-05 15:20] LABS: BLOOD UREA NITROGEN 11 MG/DL (7-18); CARBON DIOXIDE LEVEL 27 MEQ/L (21-32); CHLORIDE LEVEL 107 MEQ/L (98-107); CREATININE FOR GFR 0.85 MG/DL (0.55-1.30); GLOMERULAR FILTRATION RATE > 60.0 (>51); GLUCOSE, FASTING 144 MG/DL (70-100); POTASSIUM SERUM 4.3 MEQ/L (3.5-5.1); SODIUM LEVEL 141 MEQ/L (136-145)
[2019-02-05 15:21] LABS: ALBUMIN 3.3 GM/DL (3.2-5.2); ALT/SGPT 24 U/L (12-78); BILIRUBIN,TOTAL 0.6 MG/DL (0.2-1.0); CALCIUM LEVEL 8.9 MG/DL (8.5-10.1); TOTAL PROTEIN 6.6 GM/DL (6.4-8.2)
[2019-02-08 00:08] LABS: ANA (HEP2) Negative (.); ANTI-MITOCHONDRIAL ANTIBODY <20.0 Units (0.0-20.0)
== END ==
LOC: M SFHCPLAZ 13:23
PROVIDERS: ATTEND Family Medicine
DX: K72.90 Hepatic failure, unspecified without coma (principal); Z79.899 Other long term (current) drug therapy; N39.0 Urinary tract infection, site not specified; I87.2 Venous insufficiency (chronic) (peripheral); K58.9 Irritable bowel syndrome, unspecified; R27.0 Ataxia, unspecified; N32.81 Overactive bladder; Z86.010 Personal history of colon polyps; M47.816 Spondylosis without myelopathy or radiculopathy, lumbar region
CPT/HCPCS: 36415; 80053; 82105; 82140; 82172; 83010; 83036; 83883; 86038; 86255; 87340; G0463

== ENCOUNTER → 2019-03-06 | Outpatient (REF) | payer MEDICARE, MEDICAID ==
[2019-03-06 14:28] LABS: BASO % 0.7 % (0.0-1.0); EOS # 0.5 10^3/uL (0.0-0.50); EOS % 8.6 % (0.0-3.0); HEMATOCRIT 36.1 % (36.0-47.0); HEMOGLOBIN 12.4 g/dl (12.0-15.5); LYMPH % 33.1 % (24.0-44.0); MEAN CORPUSCULAR HEMOGLOBIN 36.3 pg (27.0-33.0); MEAN CORPUSCULAR HGB CONC 34.3 g/dl (32.0-36.5); MEAN CORPUSCULAR VOLUME 105.6 fl (80.0-96.0); MONO # 0.6 10^3/uL (0.0-0.8); MONO % 10.4 % (0.0-5.0); NEUTROPHILS # 2.9 10^3/uL (1.8-7.7); NEUTROPHILS % 46.9 % (36.0-66.0); PLATELET COUNT, AUTOMATED 171 10^3/uL (150-450); RED BLOOD COUNT 3.42 10^6/uL (4.00-5.40); WHITE BLOOD COUNT 6.1 10^3/uL (4.0-10.0)
[2019-03-06 14:54] LABS: ALBUMIN 3.5 GM/DL (3.2-5.2); ALT/SGPT 25 U/L (12-78); BILIRUBIN,TOTAL 0.9 MG/DL (0.2-1.0); BLOOD UREA NITROGEN 12 MG/DL (7-18); CALCIUM LEVEL 9.1 MG/DL (8.5-10.1); CARBON DIOXIDE LEVEL 28 MEQ/L (21-32); CHLORIDE LEVEL 104 MEQ/L (98-107); CREATININE FOR GFR 0.95 MG/DL (0.55-1.30); GLOMERULAR FILTRATION RATE > 60.0 (>51); GLUCOSE, FASTING 123 MG/DL (70-100); POTASSIUM SERUM 3.9 MEQ/L (3.5-5.1); SODIUM LEVEL 142 MEQ/L (136-145); TOTAL PROTEIN 6.8 GM/DL (6.4-8.2)
== END ==
LOC: M SFHCPLAZ 12:48
PROVIDERS: ATTEND Family Medicine
DX: K72.90 Hepatic failure, unspecified without coma (principal); M47.816 Spondylosis without myelopathy or radiculopathy, lumbar region

== ENCOUNTER → 2019-04-22 | Outpatient (CLI) | payer MEDICARE, MEDICAID ==
--- NOTE | 2019-04-22 17:02 | REPMRS ---
Patient History The patient states she had a clinical breast exam in 04/2019. Patient is postmenopausal and is nulliparous. No known family history of cancer. No Hormone Replacement Therapy Digital Woman Screen Mammo: April 22, 2019 - Exam #: [id number] Bilateral CC and MLO view(s) were taken. Technologist: Tere Marquez, Technologist Prior study comparison: April 12, 2016, digital woman screen mammo performed at [facility]. January 11, 2015, digital woman screen mammo performed at [facility]. October 19, 2013, digital woman screen mammo performed at [facility]. FINDINGS: There are scattered fibroglandular densities. There has been no change in the appearance of the mammogram from the prior studies. There is a mild amount of scattered fibroglandular density which is fairly symmetric. There is no interval development of dominant mass, architectural distortion, or clustered microcalcification suggestive of malignancy. 3-D tomosynthesis shows no additional findings. Assessment: BI-RADS/ACR category 1 mammogram. Negative Mammogram. Recommendation Routine screening mammogram of both breasts in 1 year (for women over age 40). This patient's Lifetime Breast Cancer RIsk is estimated at 10.0 %. This mammogram was interpreted with the aid of an FDA-approved computer-aided dectection system. Electronically Signed By: Mehran Clarke MD 04/22/19 [id number]
== END ==
LOC: M WHC 13:13
PROVIDERS: ATTEND Family Medicine
DX: Z01.419 Encounter for gynecological examination (general) (routine) without abnormal findings (principal); Z12.31 Encounter for screening mammogram for malignant neoplasm of breast; Z78.0 Asymptomatic menopausal state
CPT/HCPCS: 77063; 77067; G0101; G0123

== ENCOUNTER → 2019-05-20 | Outpatient (REF) | payer MEDICARE, MEDICAID ==
[~2019-05-20] MED LIST changes: +CYAN500T8 PO; -DULO1CAP2 PO; -DULO1CAP3 PO; +DULO1CAP5 PO; +DULO1CAP6 PO; -VITA500T3 PO
[2019-05-20 09:26] LABS: BLOOD UREA NITROGEN 12 MG/DL (7-18); CREATININE FOR GFR 0.88 MG/DL (0.55-1.30); GLOMERULAR FILTRATION RATE > 60.0 (>51)
== END ==
PROVIDERS: ATTEND Psychiatry & Neurology Neurology
DX: I10 Essential (primary) hypertension (principal); E11.9 Type 2 diabetes mellitus without complications

== ENCOUNTER → 2019-06-04 | Outpatient (REF) | payer MEDICARE, MEDICAID ==
[~2019-06-04] MED LIST changes: +CEPH500C PO; +D3400CAP PO; +LACT10SO29 PO; +METH750T2 PO; -OMEP40CA2 PO; +OMEP40CA97 PO; -SULF1TAB72 PO; +SULF400T14 PO; +TRUL0.5I SQ; +VITA100066 PO; +VITA500T40 PO; +ZONI100C17 PO; -ZONI100C2 PO; +ZONI25CA13 PO; -ZONI25CA2 PO
[2019-06-04 14:58] LABS: BASO % 0.5 % (0.0-1.0); EOS # 0.6 10^3/uL (0.0-0.50); EOS % 9.6 % (0.0-3.0); HEMATOCRIT 33.5 % (36.0-47.0); HEMOGLOBIN 11.4 g/dl (12.0-15.5); LYMPH # 2.1 10^3/uL (1.5-4.5); MEAN CORPUSCULAR HEMOGLOBIN 37.4 pg (27.0-33.0); MEAN CORPUSCULAR VOLUME 109.8 fl (80.0-96.0); MONO # 0.7 10^3/uL (0.0-0.8); MONO % 10.6 % (0.0-5.0); NEUTROPHILS # 2.9 10^3/uL (1.8-7.7); PLATELET COUNT, AUTOMATED 162 10^3/uL (150-450); RED BLOOD COUNT 3.05 10^6/uL (4.00-5.40); WHITE BLOOD COUNT 6.3 10^3/uL (4.0-10.0)
[2019-06-04 15:07] LABS: APPEARANCE, URINE CLEAR (CLEAR); BACTERIA, URINE AUTO 2+ (NEGATIVE); BILIRUBIN, URINE AUTO NEGATIVE (NEGATIVE); BLOOD, URINE BLOOD NEGATIVE (NEGATIVE); COLOR, URINE YELLOW (YELLOW); GLUCOSE, URINE (UA) AUTO NEGATIVE (NEGATIVE); KETONE, URINE AUTO NEGATIVE (NEGATIVE); LEUKOCYTE ESTERASE, URINE AUTO NEGATIVE (NEGATIVE); NITRITE, URINE AUTO NEGATIVE (NEGATIVE); PROTEIN, URINE AUTO NEGATIVE (NEGATIVE); RBC, URINE AUTO 0 /HPF (0-3); SPECIFIC GRAVITY URINE AUTO 1.012 (1.002-1.035); SQUAMOUS EPITHELIAL CELL UR AU 2 /HPF (0-6); UROBILINOGEN, URINE AUTO 0.2 mg/dL (0.0-2.0); WBC, URINE AUTO 1 /HPF (0-3)
[2019-06-04 15:18] LABS: ALBUMIN 3.5 GM/DL (3.2-5.2); ALT/SGPT 27 U/L (12-78); BILIRUBIN,TOTAL 0.5 MG/DL (0.2-1.0); BLOOD UREA NITROGEN 13 MG/DL (7-18); CALCIUM LEVEL 8.8 MG/DL (8.5-10.1); CARBON DIOXIDE LEVEL 25 MEQ/L (21-32); CHLORIDE LEVEL 107 MEQ/L (98-107); CREATININE FOR GFR 1.09 MG/DL (0.55-1.30); GLOMERULAR FILTRATION RATE 55.1 (>51); GLUCOSE, FASTING 102 MG/DL (70-100); POTASSIUM SERUM 4.2 MEQ/L (3.5-5.1); SODIUM LEVEL 142 MEQ/L (136-145)
[2019-06-04 15:28] LABS: VITAMIN B12 LEVEL > 2000 PG/ML (247-911)
[2019-06-04 15:36] LABS: HEMOGLOBIN A1c 6.9 %
[2019-06-12 09:06] LABS: CANNABINOID, URINE Positive (Cutoff=20); CARBOXY THC (GC/MS) 18 ng/mL (Cutoff=10); CREATININE, URINE 65.1 mg/dL (20.0-300.0); OXYCODONE URINE Positive (.); OXYCODONE, URINE CONFIRM 644 ng/mL (Cutoff=100); OXYCODONE/OXYMORPH, URINE Positive (Cutoff=100); OXYMORPHONE, URINE Negative (Cutoff=100)
== END ==
LOC: M SFHCPLAZ 12:32
PROVIDERS: ATTEND Family Medicine
DX: K72.90 Hepatic failure, unspecified without coma (principal); E11.3299 Type 2 diabetes mellitus wit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, unspecified eye; I25.10 Atherosclerotic heart disease of native coronary artery without angina pectoris; N39.0 Urinary tract infection, site not specified
CPT/HCPCS: 36415; 80053; 80307; 81001; 82140; 82607; 83036; 85025; 85046; 87088; 87186; G0463

== ENCOUNTER → 2019-06-29 | Outpatient (REF) | payer MEDICARE, MEDICAID ==
[~2019-06-29] MED LIST changes: -CEPH500C PO; -D3400CAP PO; -LACT10SO29 PO; -METH750T2 PO; +OMEP40CA2 PO; -OMEP40CA97 PO; +SULF1TAB72 PO; -SULF400T14 PO; -TRUL0.5I SQ; -VITA100066 PO; -VITA500T40 PO; -ZONI100C17 PO; +ZONI100C2 PO; -ZONI25CA13 PO; +ZONI25CA2 PO
[2019-06-29 16:42] LABS: APPEARANCE, URINE CLEAR (CLEAR); BACTERIA, URINE AUTO 1+ (NEGATIVE); BILIRUBIN, URINE AUTO NEGATIVE (NEGATIVE); BLOOD, URINE BLOOD NEGATIVE (NEGATIVE); COLOR, URINE STRAW (YELLOW); GLUCOSE, URINE (UA) AUTO NEGATIVE (NEGATIVE); KETONE, URINE AUTO NEGATIVE (NEGATIVE); LEUKOCYTE ESTERASE, URINE AUTO NEGATIVE (NEGATIVE); NITRITE, URINE AUTO NEGATIVE (NEGATIVE); PROTEIN, URINE AUTO NEGATIVE (NEGATIVE); RBC, URINE AUTO 3 /HPF (0-3); SPECIFIC GRAVITY URINE AUTO 1.008 (1.002-1.035); SQUAMOUS EPITHELIAL CELL UR AU 0 /HPF (0-6); UROBILINOGEN, URINE AUTO 0.2 mg/dL (0.0-2.0); WBC, URINE AUTO 0 /HPF (0-3)
== END ==
LOC: M SFHCPLAZ 15:46
PROVIDERS: ATTEND Family Medicine
DX: N39.0 Urinary tract infection, site not specified (principal)

== ENCOUNTER → 2019-06-30 | Outpatient (REF) | payer MEDICARE, MEDICAID ==
[2019-06-30 19:07] LABS: APPEARANCE, URINE CLEAR (CLEAR); BACTERIA, URINE AUTO NEGATIVE (NEGATIVE); BILIRUBIN, URINE AUTO NEGATIVE (NEGATIVE); BLOOD, URINE BLOOD NEGATIVE (NEGATIVE); COLOR, URINE YELLOW (YELLOW); GLUCOSE, URINE (UA) AUTO NEGATIVE (NEGATIVE); KETONE, URINE AUTO NEGATIVE (NEGATIVE); LEUKOCYTE ESTERASE, URINE AUTO NEGATIVE (NEGATIVE); MUCUS, URINE SMALL (NEGATIVE); NITRITE, URINE AUTO NEGATIVE (NEGATIVE); PROTEIN, URINE AUTO NEGATIVE (NEGATIVE); RBC, URINE AUTO 0 /HPF (0-3); SPECIFIC GRAVITY URINE AUTO 1.009 (1.002-1.035); SQUAMOUS EPITHELIAL CELL UR AU 0 /HPF (0-6); UROBILINOGEN, URINE AUTO 0.2 mg/dL (0.0-2.0); WBC, URINE AUTO 0 /HPF (0-3)
== END ==
LOC: M SFHCPLAZ 17:48
PROVIDERS: ATTEND Family Medicine
DX: N39.0 Urinary tract infection, site not specified (principal)

== ENCOUNTER → 2019-07-09 | Outpatient (REF) | payer MEDICARE, MEDICAID ==
[2019-07-09 17:33] LABS: BASO # 0.1 10^3/uL (0.0-0.2); BASO % 0.8 % (0.0-1.0); EOS # 0.6 10^3/uL (0.0-0.50); HEMATOCRIT 33.3 % (36.0-47.0); LYMPH # 2.4 10^3/uL (1.5-4.5); LYMPH % 37.8 % (24.0-44.0); MEAN CORPUSCULAR HEMOGLOBIN 35.9 pg (27.0-33.0); MEAN CORPUSCULAR VOLUME 108.8 fl (80.0-96.0); MONO # 0.7 10^3/uL (0.0-0.8); MONO % 10.6 % (0.0-5.0); NEUTROPHILS # 2.6 10^3/uL (1.8-7.7); NEUTROPHILS % 41.6 % (36.0-66.0); PLATELET COUNT, AUTOMATED 186 10^3/uL (150-450); RED BLOOD COUNT 3.06 10^6/uL (4.00-5.40); WHITE BLOOD COUNT 6.2 10^3/uL (4.0-10.0)
[2019-07-09 18:06] LABS: ALBUMIN 3.3 GM/DL (3.2-5.2); BILIRUBIN,TOTAL 0.4 MG/DL (0.2-1.0); CALCIUM LEVEL 8.7 MG/DL (8.5-10.1); CREATININE FOR GFR 1.18 MG/DL (0.55-1.30); GLOMERULAR FILTRATION RATE 50.3 (>51); TOTAL PROTEIN 6.7 GM/DL (6.4-8.2)
== END ==
LOC: M SFHCPLAZ 15:27
PROVIDERS: ATTEND Family Medicine
DX: R45.1 Restlessness and agitation (principal)

== ENCOUNTER → 2019-08-25 | Outpatient (REF) | payer MEDICARE, MEDICAID ==
[~2019-08-25] MED LIST changes: -OMEP40CA2 PO; +OMEP40CA97 PO
[2019-08-25 14:57] LABS: BASO % 0.5 % (0.0-1.0); EOS # 0.5 10^3/uL (0.0-0.5); EOS % 8.2 % (0.0-3.0); HEMATOCRIT 30.9 % (36.0-47.0); HEMOGLOBIN 10.2 g/dl (12.0-15.5); LYMPH # 1.8 10^3/uL (1.5-5.0); LYMPH % 31.2 % (24.0-44.0); MEAN CORPUSCULAR HEMOGLOBIN 35.3 pg (27.0-33.0); MEAN CORPUSCULAR VOLUME 106.9 fl (80.0-96.0); MONO # 0.5 10^3/uL (0.0-0.8); MONO % 8.2 % (0.0-5.0); NEUTROPHILS % 51.7 % (36.0-66.0); PLATELET COUNT, AUTOMATED 155 10^3/uL (150-450); RED BLOOD COUNT 2.89 10^6/uL (4.00-5.40); WHITE BLOOD COUNT 5.7 10^3/uL (4.0-10.0)
[2019-08-25 15:08] LABS: INR 1.07; PROTHROMBIN TIME 13.6 SECONDS (11.8-14.0)
[2019-08-25 15:09] LABS: PARTIAL THROMBOPLASTIN TIME 27.9 SECONDS (25.0-38.4)
[2019-08-25 15:21] LABS: ALBUMIN 3.2 GM/DL (3.2-5.2); ALT/SGPT 23 U/L (12-78); BILIRUBIN,TOTAL 0.6 MG/DL (0.2-1.0); BLOOD UREA NITROGEN 14 MG/DL (7-18); CALCIUM LEVEL 8.8 MG/DL (8.5-10.1); CARBON DIOXIDE LEVEL 27 MEQ/L (21-32); CHLORIDE LEVEL 108 MEQ/L (98-107); CREATININE FOR GFR 1.04 MG/DL (0.55-1.30); GLOMERULAR FILTRATION RATE 57.9 (>51); GLUCOSE, FASTING 112 MG/DL (70-100); SODIUM LEVEL 143 MEQ/L (136-145); TOTAL PROTEIN 6.7 GM/DL (6.4-8.2)
[2019-08-25 15:29] LABS: PTH INTACT 58.6 PG/ML (18.5-88.0)
[2019-08-25 15:47] LABS: VITAMIN B12 LEVEL 1712 PG/ML (247-911)
[2019-08-25 16:16] LABS: TOTAL 25(OH) VITAMIN D 44.7 NG/ML (30.0-100.0)
[2019-08-25 19:27] LABS: HEMATOCRIT 30.9 % (36.0-47.0)
[2019-08-27 12:29] LABS: ALBUMIN 3.57 GM/DL (3.29-5.55); ALBUMIN % 53.3 % (55.8-66.1); ALPHA-1-GLOBULIN % 4.8 % (2.9-4.9); ALPHA-1-GLOBULINS 0.32 GM/DL (0.17-0.41); ALPHA-2-GLOBULINS 0.79 GM/DL (0.42-0.99); ALPHA-2-GLOBULINS % 11.8 % (7.1-11.8); BETA-1-GLOBULINS 0.54 GM/DL (0.28-0.60); BETA-1-GLOBULINS % 8.1 % (4.7-7.2); BETA-2-GLOBULINS 0.39 GM/DL (0.19-0.55); BETA-2-GLOBULINS % 5.8 % (3.2-6.5); GAMMA GLOBULIN % 16.2 % (11.1-18.8); GAMMA GLOBULINS 1.09 GM/DL (0.65-1.58)
== END ==
LOC: M SFHCPLAZ 13:48
PROVIDERS: ATTEND Family Medicine
DX: E53.8 Deficiency of other specified B group vitamins (principal); K72.90 Hepatic failure, unspecified without coma; E55.9 Vitamin D deficiency, unspecified
CPT/HCPCS: 36415; 80053; 82140; 82306; 82607; 82747; 83970; 84165; 85025; 85046; 85610; 85730; 86335; G0463

== ENCOUNTER → 2019-09-30 | Outpatient (REF) | payer MEDICARE, MEDICAID ==
[~2019-09-30] MED LIST changes: -SULF1TAB72 PO; +SULF400T14 PO
[2019-09-30 09:00] LABS: BASO # 0.1 10^3/uL (0.0-0.2); BASO % 0.8 % (0.0-1.0); EOS # 0.5 10^3/uL (0.0-0.5); EOS % 8.9 % (0.0-3.0); HEMATOCRIT 32.4 % (36.0-47.0); HEMOGLOBIN 10.6 g/dl (12.0-15.5); LYMPH # 2.5 10^3/uL (1.5-5.0); LYMPH % 42.6 % (24.0-44.0); MEAN CORPUSCULAR HEMOGLOBIN 34.8 pg (27.0-33.0); MEAN CORPUSCULAR HGB CONC 32.7 g/dl (32.0-36.5); MEAN CORPUSCULAR VOLUME 106.2 fl (80.0-96.0); MONO # 0.6 10^3/uL (0.0-0.8); MONO % 9.9 % (0.0-5.0); NEUTROPHILS # 2.2 10^3/uL (1.5-8.5); NEUTROPHILS % 37.5 % (36.0-66.0); PLATELET COUNT, AUTOMATED 180 10^3/uL (150-450); RED BLOOD COUNT 3.05 10^6/uL (4.00-5.40); WHITE BLOOD COUNT 5.9 10^3/uL (4.0-10.0)
[2019-09-30 09:18] LABS: ALBUMIN 3.2 GM/DL (3.2-5.2); ALT/SGPT 32 U/L (12-78); BILIRUBIN,TOTAL 0.8 MG/DL (0.2-1.0); BLOOD UREA NITROGEN 12 MG/DL (7-18); CALCIUM LEVEL 9.2 MG/DL (8.5-10.1); CARBON DIOXIDE LEVEL 30 MEQ/L (21-32); CHLORIDE LEVEL 108 MEQ/L (98-107); CREATININE FOR GFR 0.88 MG/DL (0.55-1.30); GLOMERULAR FILTRATION RATE > 60.0 (>51); GLUCOSE, FASTING 119 MG/DL (70-100); POTASSIUM SERUM 4.1 MEQ/L (3.5-5.1); SODIUM LEVEL 145 MEQ/L (136-145)
== END ==
PROVIDERS: ATTEND Family Medicine
DX: M35.01 Sjogren syndrome with keratoconjunctivitis (principal); E78.2 Mixed hyperlipidemia
CPT/HCPCS: 36415; 80053; 82105; 82140; 85025; 85046; G0463

== ENCOUNTER 2019-10-30 09:34 | Day surgery (SDC) | payer MEDICARE, MEDICAID ==
[~2019-10-30] VITALS: Ht 160 cm; Wt 95.3 kg
[~2019-10-30 09:34] MED LIST changes: +CEPH500C PO; +D3400CAP PO; +LACT10SO29 PO; +LIDOCAINE 2% INJ 100 MG/5 ML SDV (FOR ANES.) As Ordered ONE; +METH750T2 PO; +NS 1,000 ML IV ONE; +PROPOFOL 200 MG/20 ML VIAL As Ordered ONE; +TRUL0.5I SQ; +VITA100066 PO; +VITA500T40 PO
--- NOTE | 2019-10-30 12:46 | ROOR ---
Patient Name: Anastasia Evans Procedure Date: 10/30/2019 12:12 PM Date of : 1960 Age: 59 Room: [facility] Gender: Female Note Status: Finalized Procedure: Colonoscopy Indications: Change in bowel habits, Constipation Providers: Kian FLOWER MD Referring MD: Andrew Beck MD Requesting Provider: Medicines: Propofol per Anesthesia Complications: No immediate complications. Procedure: Pre-Anesthesia Assessment: - The heart rate, respiratory rate, oxygen saturations, blood pressure, adequacy of pulmonary ventilation, and response to care were monitored throughout the procedure. The Colonoscope was introduced through the anus and advanced to the terminal ileum, with identification of the appendiceal orifice and IC valve. The colonoscopy was performed without difficulty. The patient tolerated the procedure well. The quality of the bowel preparation was good. Findings: The perianal and digital rectal examinations were normal. A diminutive polyp was found in the splenic flexure. The polyp was sessile. The polyp was removed with a jumbo cold forceps. Resection and retrieval were complete. Internal hemorrhoids were found during retroflexion. The hemorrhoids were moderate. Retroflexion in the right colon was performed. The exam was otherwise normal throughout the examined colon. The terminal ileum appeared normal. Impression: - One diminutive polyp at the splenic flexure, removed with a jumbo cold forceps. Resected and retrieved. - Internal hemorrhoids. - The examined portion of the ileum was normal. Recommendation: - Use fiber, for example Citrucel, Fibercon, Konsyl or Metamucil. - Repeat colonoscopy in 3 - 5 years for surveillance. - Await pathology results. Kian Flower MD Kian FLOWER MD 10/30/2019 12:45:51 PM Electronically signed by Kian FLOWER MD Number of Addenda: 0 Note Initiated On: 10/30/2019 12:12 PM Estimated Blood Loss: Estimated blood loss: none.
--- NOTE | 2019-10-30 12:53 | ROOR ---
Patient Name: Anastasia Evans Procedure Date: 10/30/2019 12:12 PM Date of : 1960 Age: 59 Room: [facility] Gender: Female Note Status: Finalized Procedure: Upper GI endoscopy Indications: Abdominal pain Providers: Kian FLOWER MD Referring MD: Andrew Beck MD Requesting Provider: Medicines: Monitored Anesthesia Care Complications: No immediate complications. Procedure: Pre-Anesthesia Assessment: - The heart rate, respiratory rate, oxygen saturations, blood pressure, adequacy of pulmonary ventilation, and response to care were monitored throughout the procedure. The Endoscope was introduced through the mouth, and advanced to the jejunum. The upper GI endoscopy was accomplished without difficulty. The patient tolerated the procedure well. Findings: Evidence of a Neftali-en-Y gastrojejunostomy was found. The entire examined stomach was otherwise normal. The examined esophagus was normal. The examined jejunum was normal. Impression: - Neftali-en-Y gastrojejunostomy. - Otherwise normal stomach. - Normal esophagus. - Normal examined jejunum. - No specimens collected. Recommendation: - Observe patient's clinical course. - Continue present medications. Kian Flower MD Kian FLOWER MD 10/30/2019 12:53:04 PM Electronically signed by Kian FLOWER MD Number of Addenda: 0 Note Initiated On: 10/30/2019 12:12 PM Estimated Blood Loss: Estimated blood loss: none.
[2019-10-30 13:25] VITALS: BP 141/69
== END 2019-10-30 13:24 | disposition home or self-care (01) ==
LOC: M OPP 09:34
PROVIDERS: ATTEND Internal Medicine Gastroenterology
DX: R10.9 Unspecified abdominal pain (principal); D12.3 Benign neoplasm of transverse colon; K64.8 Other hemorrhoids; R19.4 Change in bowel habit; Z98.0 Intestinal bypass and anastomosis status; K21.9 Gastro-esophageal reflux disease without esophagitis; Z79.82 Long term (current) use of aspirin; Z79.84 Long term (current) use of oral hypoglycemic drugs; Z79.899 Other long term (current) drug therapy; Z88.1 Allergy status to other antibiotic agents; Z88.8 Allergy status to other drugs, medicaments and biological substances; Z91.018 Allergy to other foods; Z91.040 Latex allergy status

== ENCOUNTER 2019-12-03 08:24 | Inpatient (IN) | payer MEDICARE, MEDICAID ==
[~2019-12-03] VITALS: Ht 162.6 cm; Wt 94.5 kg
[~2019-12-03 08:24] MED LIST changes: -LIDOCAINE 2% INJ 100 MG/5 ML SDV (FOR ANES.) As Ordered ONE; -NS 1,000 ML IV ONE; -PROPOFOL 200 MG/20 ML VIAL As Ordered ONE; +ZONI100C17 PO; -ZONI100C2 PO; +ZONI25CA13 PO; -ZONI25CA2 PO
[2019-12-03] MEDS ORDERED: ASPI81CH33 PO (09:11)
[2019-12-03] MEDS ORDERED: CALC500C27 PO (09:11)
[2019-12-03] MEDS ORDERED: DULO1CAP6 PO (09:11)
[2019-12-03] MEDS ORDERED: METF-791 PO (09:11)
[2019-12-03] MEDS ORDERED: CELE1CAP4 PO (09:11)
[2019-12-03] MEDS ORDERED: GABA-843 PO (09:11)
[2019-12-03] MEDS ORDERED: FLON1SPR NARES (09:11)
[2019-12-03] MEDS ORDERED: BUTR10DI TOP (09:11)
[2019-12-03] MEDS ORDERED: XIFA200T2 PO (09:11)
[2019-12-03] MEDS ORDERED: POTA1TAB14 PO (09:11)
[2019-12-03 09:34] LABS: BASO % 0.6 % (0.0-1.0); EOS # 0.6 10^3/uL (0.0-0.5); EOS % 12.8 % (0.0-3.0); HEMATOCRIT 30.8 % (36.0-47.0); HEMOGLOBIN 9.3 g/dl (12.0-15.5); LYMPH # 1.8 10^3/uL (1.5-5.0); LYMPH % 35.5 % (24.0-44.0); MEAN CORPUSCULAR HEMOGLOBIN 32.5 pg (27.0-33.0); MEAN CORPUSCULAR HGB CONC 30.2 g/dl (32.0-36.5); MEAN CORPUSCULAR VOLUME 107.7 fl (80.0-96.0); MONO # 0.6 10^3/uL (0.0-0.8); MONO % 11.8 % (0.0-5.0); NEUTROPHILS % 39.1 % (36.0-66.0); PLATELET COUNT, AUTOMATED 139 10^3/uL (150-450); RED BLOOD COUNT 2.86 10^6/uL (4.00-5.40)
[2019-12-03 09:42] LABS: INR 1.07; PROTHROMBIN TIME 13.6 SECONDS (11.8-14.0)
[2019-12-03 10:27] LABS: ALBUMIN 2.9 GM/DL (3.2-5.2); ALT/SGPT 21 U/L (12-78); BILIRUBIN,DIRECT 0.2 MG/DL (0.0-0.2); BILIRUBIN,TOTAL 0.6 MG/DL (0.2-1.0); BLOOD UREA NITROGEN 11 MG/DL (7-18); CALCIUM LEVEL 8.2 MG/DL (8.5-10.1); CARBON DIOXIDE LEVEL 27 MEQ/L (21-32); CHLORIDE LEVEL 108 MEQ/L (98-107); CK-MB VALUE MASS 2.1 NG/ML (<3.6); CPK CREATINE PHOSPHOKINASE 67 U/L (26-192); CREATININE FOR GFR 0.73 MG/DL (0.55-1.30); GLOMERULAR FILTRATION RATE > 60.0 (>51); GLUCOSE, FASTING 101 MG/DL (70-100); MB/CK RELATIVE INDEX 3.13 (< OR =4); POTASSIUM SERUM 4.8 MEQ/L (3.5-5.1); SODIUM LEVEL 144 MEQ/L (136-145); TOTAL PROTEIN 6.1 GM/DL (6.4-8.2); TROPONIN I < 0.02 NG/ML (< 0.10)
[2019-12-03] MEDS ORDERED: LACTULOSE 20 GM/30 ML SYRUP UD PO ONE (10:45)
[2019-12-03] MEDS ORDERED: MIRALAX *UNIT DOSE* 17GM PACKET PO PRN (12:15)
--- NOTE | 2019-12-03 13:22 | HPEPDOC ---
[facility] Medical History & Physical Date of Admission Dec 03, 2019 Date of Service: Dec 03, 2019 Primary Care Physician: Andrew Beck M.D. Attending Physician: JAY CARDOZO MD History and Physical CHIEF COMPLAINT: Confusion HISTORY OF PRESENT ILLNESS: History limited due to patient confusion. Anastasia Evans is a 51-year-old female who presented to the [facility] emergency department from [facility] where she was observed to be confused. Per emergency department staff, the assisted living facility staff witnessed her attempting to take the elevator to go get breakfast, but the elevator did not lead to the breakfast room. The staff had further conversation with her which led them to believe she had an altered level of consciousness. She has a history of episodes of hepatic encephalopathy and cirrhosis. She has a standing prescription for lactulose 3 times a day, for which there have been repeated compliance issues. Pt is unable to describe the events of this morning other than that she was confused and was brought to the emergency department. She states that she has not taken her lactulose in 2 days. She states that she was planning to go to [place] today and therefore intentionally skipped her lactulose doses to avoid the associated gas and bowel dysfunction. She states that she also skips some doses due to not liking the taste. PAST MEDICAL HISTORY (from patient and medical record): 1. Previous episodes of hepatic encephalopathy. 2. 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 Fall history 4. Diabetes mellitus type 2 non-insulin 5. Diabetic neuropathy 6. Migraine headaches 7. Neurogenic bladder 8. Chronic urinary tract infections 9. Anxiety/depression 10. Gastroesophageal reflux disease PAST SURGICAL HISTORY (from medical record): 1. Appendectomy 2. All abscess 3. Stroke bypass 4. Cholecystectomy 5. Left hip repair 6. Lumbar fusion, cervical fusion 7. D&C 8. I&D left leg abscess, 2000 SOCIAL HISTORY: Marital status: Single Resides in: [place] Children: Denies Employment: Disabled Tobacco use: [id number] history, quit in 1992 ETOH: Denies Illicit drug use: Denies Tattoos done unprofessionally: Denies. IV drug use: Denies. Other relevant social factors: N/A FAMILY HISTORY: Father: Alive, 82, Parkinson disease Mother: Alive, 77, kidney problem. unspecified Siblings: 4 brothers, one with multiple sclerosis Children: Denies Hereditary Diseases: Cancer, multiple types Unexpected deaths due to medical reasons: Denies ALLERGIES: Please see below. REVIEW OF SYSTEMS: CONSTITUTIONAL: Endorses chills, night sweats, fatigue, unexpected weight loss of 8lbs in the past month per PCP visit weight vs. weight on this admission. Denies fevers and unexpected weight gain. HEENT: Denies change in vision and hearing. CARDIOVASCULAR: Endorses lightheadedness and intermittent palpitations, exertional dyspnea, and claudication. Denies chest pain and syncope. RESPIRATORY: Denies dyspnea, cough, and wheezing. GASTROINTESTINAL: Endorses diarrhea related to lactulose. Denies nausea, vomiting, abdominal pain, constipation, and hematochezia. GENITOURINARY: Endorses dysuria, incontinence, urgency, and incomplete emptying. Denies hematuria. SKIN: Denies rash, lesions, and pruritus. MUSCULOSKELETAL: Endorses arthralgias. Denies myalgias. NEUROLOGICAL: Endorses migraine headaches and weakness. Denies dizziness. ENDOCRINE: Endorses excessive thirst, polyuria, and heat intolerance. Denies cold intolerance. PSYCHIATRIC: Denies change in mood, suicidality, and homicidality. HOME MEDICATIONS: Please see below. PHYSICAL EXAMINATION: VITAL SIGNS: Temperature 97.8, pulse 84, respiratory rate 20, blood pressure 110 /55, pulse oximetry 96% on room air. GENERAL: Pt appears stated age and is propped up in bed in no acute distress. HEENT: Normocephalic, atraumatic. CARDIOVASCULAR: Regular rate and rhythm. No murmurs, rubs, or gallops. PULMONARY: Clear to auscultation b/l. No wheezes, rales, or rhonchi. ABDOMEN: Exam completed in the presence of nurse salesperson yard goods. Abdomen soft with no organomegaly. No focal tenderness. Small 3 mm pressure sore present at superior gluteal cleft with no bleeding or exudate. EXTREMITIES: No peripheral edema. Pulses 2+ b/l in upper and lower extremities. NEUROLOGICAL: CNII-XII intact. Asterixis present. PSYCHIATRIC: Pt is calm and cooperative. She is confused. Her responses are l ogical, but thoughts are slowed. LABORATORY DATA: See below. IMAGING: Portable chest x-ray report pending. MICROBIOLOGY: Please see below. ASSESSMENT: Anastasia Evans is a 59-year-old female with significant past medical history of hepatic encephalopathy, fall history, diabetes mellitus type 2, and chronic urinary tract infection who presented to the [facility] emergency department from [facility] complaining of confusion and has been admitted for evaluation and treatment of hepatic encephalopathy. PLAN: 1. Acute hepatic encephalopathy secondary to medication noncompliance - Pt has not had scheduled 3 times a day lactulose in the past 2 days. She has a documented history of hepatic encephalopathy secondary to medication noncompliance. - No head trauma was reported - Ammonia elevated at 75. Albumin low at 2.9. AST, ALT, PT, and INR are all within normal limits. - Restart home lactulose and monitor encephalopathy. - Posey fall and seizure precautions. - Resume home lactulose 1. Lactic acidosis secondary metabolic encephalopathy, -No signs of infection -No sign of dehydration -No cough, no abdominal pain, no chest pain, -Repeat in the a.m. 2. Chronic urinary tract infection - Per patient report of symptoms, urinalysis was ordered. UA was negative for nitrites and bacteria, but positive for trace leukocyte esterase. This indicates no acute infection. - Hold home prophylactic dose of cefepime. - Patient intermittently self cath due to urinary incontinence - Order placed. The cath patient 3 times a day 3. Sacral pressure ulcer - Wound care per nursing. 4. Normochromic macrocytic anemia, likely secondary to hemodilution and B12 deficiency secondary to gastric bypass procedure - Patient's red blood cell count was 2.6 with hemoglobin of 9.3, hematocrit of 30.8%, and MCV of 107.7. - Continue to monitor for symptoms. Defer ongoing management to outpatient follow-up. 5. Diabetes mellitus type 2, non-insulin - Hold home metformin and Trulicity. - Begin consistent carbohydrate diet. - With sliding scale converage 6. Gastroesophageal reflux disease - Continue home omeprazole. 7. DVT prophylaxis: Subcutaneous heparin DISPOSITION: Discharge pending clinical improvement of hepatic encephalopathy per her lactulose dosing. Vital Signs Vital Signs Date Time Temp Pulse Resp B/P (MAP) Pulse Ox O2 Delivery O2 Flow Rate FiO2 12/03/19 11:00 20 110/55 (73) 12/03/19 10:54 84 96 12/03/19 08:30 97.8 Room Air Laboratory Data Labs 24H Laboratory Tests 2 12/03/19 09:08: Bedside Glucose (Misc Panel) 106H 12/03/19 09:09: Immature Granulocyte % (Auto) 0.2, Neutrophils (%) (Auto) 39.1, Lymphocytes (%) (Auto) 35.5, Monocytes (%) (Auto) 11.8H, Eosinophils (%) (Auto) 12.8H, Basophils (%) (Auto) 0.6, Neutrophils # (Auto) 2.0, Lymphocytes # (Auto) 1.8, Monocytes # (Auto) 0.6, Eosinophils # (Auto) 0.6H, Basophils # (Auto) 0.0, Nucleated Red Blood Cells % (auto) 0.0, Prothrombin Time 13.6, Prothromb Time International Ratio 1.07, Anion Gap 9, Glomerular Filtration Rate > 60.0, Lactic Acid Level 4 .7*H, Calcium Level 8.2L, Total Bilirubin 0.6, Direct Bilirubin 0.2, Aspartate Amino Transf (AST/SGOT) 36, Alanine Aminotransferase (ALT/SGPT) 21, Alkaline Phosphatase 81, Ammonia 75H, Total Creatine Kinase 67, Creatine Kinase MB 2.1, Creatine Kinase MB Relative Index 3.13, Troponin I < 0.02, Total Protein 6.1L, Albumin 2.9L, Albumin/Globulin Ratio 0.91L 12/03/19 09:21: Urine Color YELLOW, Urine Appearance CLEAR, Urine pH 6.0, Urine Specific [place] 1.009, Urine Protein NEGATIVE, Urine Glucose (UA) NEGATIVE, Urine Ketones NEGATIVE, Urine Blood NEGATIVE, Urine Nitrite NEGATIVE, Urine Bilirubin NEGATIVE, Urine Urobilinogen 4.0H, Urine Leukocyte Esterase TRACEH, Urine WBC ( Auto) 10H, Urine RBC (Auto) 1, Urine Hyaline Casts (Auto) 0, Urine Bacteria (Auto) NEGATIVE, Urine Squamous Epithelial Cells 0, Urine Sperm (Auto) CBC/BMP Laboratory Tests 12/03/19 09:09 Microbiology Microbiology 12/03/19 Urine Culture, Received Pending 12/03/19 Blood Culture, Received Pending 12/03/19 Blood Culture, Received Pending Home Medications Scheduled Aspirin (Aspirin) 81 Mg Tab.chew, 81 MG PO QAM Atorvastatin Calcium (Atorvastatin Calcium) 20 Mg Tablet, 20 MG PO QHS Buprenorphine (Butrans) 10 Mcg/Hr Patch.tdwk, 1 PATCH TOP QWEEK APPLIES PATCH EVERY SATURDAY AT 2100, CURENTLY APPLIED TO RIGHT SHOULDER Buspirone HCl (Buspirone HCl) 30 Mg Tablet, 30 MG PO BID Calcium Carbonate (Antacid) 200 Mg Tab.chew, 500 MG PO BID Celecoxib (Celebrex) 200 Mg Capsule, 200 MG PO QAM Cephalexin (Cephalexin) 500 Mg Capsule, 500 MG PO QHS Cholecalciferol (Vitamin D3) (Vitamin D3) 400 Unit Capsule, 400 UNIT PO BID Cyanocobalamin (Vitamin B-12) (Vitamin B-12) 500 Mcg Tablet, 500 MCG PO QAM Cyclosporine (Restasis) 0.05 % Emu, 1 DROP OU BID Dulaglutide (Trulicity) 1.5 Mg/0.5 Ml Pen.injctr, 1.5 MG SQ QWEEK SUNDAYS AT 1800 Duloxetine Hcl (Duloxetine HCl) 60 Mg Capsule.dr, 60 MG PO BID Fluticasone Propionate (Flonase Allergy Relief) 9.9 Ml [place].susp, 2 SPRAY NARES DAILY Furosemide (Furosemide) 20 Mg Tab, 20 MG PO DAILY Gabapentin (Gabapentin) 300 Mg Capsule, 900 MG PO TID Lactulose (Lactulose) 10 Gm/15 Ml Solution, 30 ML PO TID Metformin HCl (Metformin HCl ER) 500 Mg Tab.er.24h, 1,000 MG PO BID Methocarbamol (Methocarbamol) 750 Mg Tablet, 750 MG PO TID Omeprazole (Omeprazole) 40 Mg Cap, 40 MG PO BID Potassium Chloride (Potassium Chloride) 20 Meq Tablet.er, 20 MEQ PO BID Rifaximin (Xifaxan) 200 Mg Tablet, 400 MG PO BID Scheduled PRN Polyethylene Glycol 3350 (Miralax) 119 Gm Powder, 17 GM PO DAILY PRN for CONSTIPATION dilute in 8 ounces of water or juice Rizatriptan Benzoate (Rizatriptan) 10 Mg Tab, 10 MG PO DAILY PRN for MIGRAINE Allergies Coded Allergies: ciprofloxacin (Verified Allergy, Intermediate, HIVES, CHILLS, AND FELT LIGHT HEADED, 10/28/19) fluconazole (Verified Allergy, Intermediate, HIVES, 10/28/19) latex (Verified Allergy, Intermediate, HIVES AND RASH ON HANDS, 10/28/19) strawberry (Verified Allergy, Unknown, 10/28/19) A-FIB/CHADSVASC A-FIB History Current/History of A-Fib/PAF?: No GME ATTESTATION GME ATTESTATION My faculty preceptor for this patient encounter was physically present during the encounter and was fully available. All aspects of the patient interview, examination, medical decision making process, and medical care plan development were reviewed and approved by the faculty preceptor. The faculty preceptor is aware and concurs with the plan as stated in the body of this note and will attest to such by his/her cosignature. JOELLEN MORALES S-III Dec 03, 2019 13:22 NILO LE DO Dec 03, 2019 16:31
[2019-12-03 13:45] VITALS: BP 132/66
[2019-12-03] MEDS: LACTULOSE 20 GM/30 ML SYRUP UD PO SCH ×2 (15:15→22:31)
[2019-12-03] MEDS: HEPARIN SOD (PORCINE) 5000 UNITS/ML VIAL (J1644 PER 1000UNITS) SC SCH (15:16)
--- NOTE | 2019-12-03 15:29 | REP ---
Portable chest, 04:00 a.m., single AP view with the patient semi upright: Comparison is 09/07/2018. The lung thorne are clear. The cardiac size is normal. The ammy, mediastinum, and skeletal structures are unremarkable. Impression: Negative portable chest. There is no interval change. Electronically Signed by Jose Enrique Elmore MD 12/03/2019 09:21 A
[2019-12-03] MEDS ORDERED: GLUCOSE 4 GM CHEW TABLET PO PRN (16:30)
[2019-12-03] MEDS ORDERED: GLUCAGON FOR INJ 1 MG VIAL (J1610) SC PRN (16:30)
[2019-12-03] MEDS ORDERED: DEXTROSE 50% 50 ML SYRINGE IV PRN (16:30)
[2019-12-03] MEDS: HumaLOG INSULIN (NovoLOG) PER UNIT SC SCH ×2 (17:50→21:00)
[2019-12-03 18:00] VITALS: BP 134/73
[2019-12-03] MEDS: DOCUSATE SODIUM 100 MG CAP PO SCH (21:00)
[2019-12-03 22:00] VITALS: BP 135/73
[2019-12-03] MEDS: POTASSIUM CHLORIDE 10 MEQ SR TABLET PO SCH (22:30)
[2019-12-03] MEDS: busPIRone 10 MG TAB PO SCH (22:31)
[2019-12-03] MEDS: OMEPRAZOLE 20 MG CAP PO SCH (22:31)
[2019-12-04] MEDS: VITAMIN D (CHOLECALCIFEROL) 400 INTERNATIONAL UNITS TAB PO SCH ×3 (00:18→21:41)
[2019-12-04] MEDS: HEPARIN SOD (PORCINE) 5000 UNITS/ML VIAL (J1644 PER 1000UNITS) SC SCH ×2 (00:18→13:27)
[2019-12-04 06:00] VITALS: BP 132/74
[2019-12-04 06:38] LABS: HEMATOCRIT 27.6 % (36.0-47.0); HEMOGLOBIN 8.8 g/dl (12.0-15.5); MEAN CORPUSCULAR HEMOGLOBIN 33.5 pg (27.0-33.0); MEAN CORPUSCULAR HGB CONC 31.9 g/dl (32.0-36.5); MEAN CORPUSCULAR VOLUME 104.9 fl (80.0-96.0); PLATELET COUNT, AUTOMATED 129 10^3/uL (150-450); RED BLOOD COUNT 2.63 10^6/uL (4.00-5.40); WHITE BLOOD COUNT 4.5 10^3/uL (4.0-10.0)
[2019-12-04 07:02] LABS: ALBUMIN 2.8 GM/DL (3.2-5.2); ALT/SGPT 22 U/L (12-78); BILIRUBIN,TOTAL 0.7 MG/DL (0.2-1.0); BLOOD UREA NITROGEN 11 MG/DL (7-18); CALCIUM LEVEL 8.1 MG/DL (8.5-10.1); CARBON DIOXIDE LEVEL 29 MEQ/L (21-32); CHLORIDE LEVEL 107 MEQ/L (98-107); CREATININE FOR GFR 0.63 MG/DL (0.55-1.30); GLOMERULAR FILTRATION RATE > 60.0 (>51); GLUCOSE, FASTING 87 MG/DL (70-100); SODIUM LEVEL 142 MEQ/L (136-145); TOTAL PROTEIN 5.6 GM/DL (6.4-8.2)
[2019-12-04] MEDS: HumaLOG INSULIN (NovoLOG) PER UNIT SC SCH ×4 (07:30→21:00)
[2019-12-04] MEDS: DOCUSATE SODIUM 100 MG CAP PO SCH ×2 (09:00→21:41)
[2019-12-04] MEDS: POTASSIUM CHLORIDE 10 MEQ SR TABLET PO SCH ×2 (09:19→21:41)
[2019-12-04] MEDS: LACTULOSE 20 GM/30 ML SYRUP UD PO SCH ×3 (09:19→21:41)
[2019-12-04] MEDS: OMEPRAZOLE 20 MG CAP PO SCH ×2 (09:20→21:42)
[2019-12-04] MEDS: busPIRone 10 MG TAB PO SCH ×2 (09:20→21:42)
[2019-12-04] MEDS: CYANOCOBALAMIN 500 MCG TAB PO SCH (09:20)
[2019-12-04] MEDS: CelecoXIB (CeleBREX) 100 MG CAP PO SCH (09:20)
[2019-12-04] MEDS: FUROSEMIDE 20 MG TAB PO SCH (09:21)
[2019-12-04 10:00] VITALS: BP 134/71
--- NOTE | 2019-12-04 10:04 | IPNPDOC ---
Subjective Date Seen The patient was seen on 12/04/19. Subjective Chief Complaint/HPI Feels better today - mentally feels more clear No other complaints Constitutional: Denies: Chills, Fever Pulmonary: Denies: Dyspnea, Cough Cardiovascular: Denies: Chest Pain, Palpitations, Orthopnea Gastrointestinal: Denies: Nausea, Vomiting, Abdominal Pain, Diarrhea, Constipation Objective Physical Examination General Exam: Positive: Alert, No Acute Distress Chest Exam: Positive: Clear to auscultation; Negative: Rales, Rhonchi, Wheezing Heart Exam: Positive: Rate Normal, Regular Rhythm Abdomen Exam: Positive: Normal bowel sounds, Soft, Tenderness (mild generalized withotu guard or rebound) Extremity Exam: Negative: Edema Psych Exam: Positive: Mental status NL Assessment /Plan Problems (1) Acute hepatic encephalopathy Status: Acute Problem Text: Mental status has improved but ammonia level has gone up fropm 75 to 101 today Lactulose restarted yesterday - 30 ml TID (Had not taken it for 2 days) For some reason Xifaxamin not restarted - I will order this Monitor trend (2) Anemia Status: Acute Problem Text: Chronic anemia - hgb down slighlty - monitor trend No signs of active bleeding On ASA and Celebrex and SQ heparin - hold if anemia worsens (3) DJD (degenerative joint disease), lumbar Status: Chronic Problem Text: Normally on Butrans and Gabapentin - both on hold currently due to mental status change - restart if remains stable (4) NAFLD (nonalcoholic fatty liver disease) Status: Acute (5) Morbid obesity Status: Chronic (6) Diabetes mellitus Status: Chronic Response to Treatment: Stable Problem Text: Normally on Trulicity 1.5 Q week and Metformin Cont SSI for now Blood sugars only 100 - 140 (7) Neurogenic bladder Status: Chronic Problem Text: Straight caths at baseline U/C negative B/C negative (8) H/O recurrent urinary tract infection Status: Chronic Problem Text: Normally on prophylactic Cephalexin 500 QD - restart this No sign of acute infection U/C and B/C negative Lactic acid level was elevated on admission but normal today Plan/VTE VTE Prophylaxis Ordered?: Yes (SQ heparin) Plan Therapy: PT [facility] - Currently observation status - Convert to inpatient if acute issues develop requiring IV management VS, I&O, 24H, Fishbone Vital Signs/I&O Vital Signs Date Time Temp Pulse Resp B/P (MAP) Pulse Ox O2 Delivery O2 Flow Rate FiO2 12/04/19 06:00 98.6 75 20 132/74 (93) 97 Room Air I&O- Last 24 Hours up to 6 AM 12/04/19 05:59 Intake Total 740 ml Output Total 3300 ml Balance -2560 ml Laboratory Data 24H LABS Laboratory Tests 2 12/03/19 17:13: Bedside Glucose (Misc Panel) 121H 12/03/19 19:57: Bedside Glucose (Misc Panel) 149H 12/04/19 05:56: Nucleated Red Blood Cells % (auto) 0.0, Anion Gap 6L, Glomerular Filtration Rate > 60.0, Lactic Acid Level 1.4, Calcium Level 8.1L, Total Bilirubin 0.7, Aspartate Amino Transf (AST/SGOT) 32, Alanine Aminotransferase (ALT/SGPT) 22, Alkaline Phosphatase 81, Ammonia 101H, Total Protein 5.6L, Albumin 2.8L, Albumin/Globulin Ratio 1.00 CBC/BMP Laboratory Tests 12/04/19 05:56 Microbiology Microbiology 12/03/19 Urine Culture - Final, Complete 12/03/19 Blood Culture - Preliminary, Resulted No growth after 24 hours . All specim... 12/03/19 Blood Culture - Preliminary, Resulted No growth after 24 hours . All specim... BRAYDEN COLÓN PA-C Dec 04, 2019 10:04
[2019-12-04] MEDS: FLUTICASONE PROP 0.05% NASAL SPRAY 16 GM (FLONASE) NARES SCH (12:23)
[2019-12-04] MEDS: DULoxetine 30 MG CAP (CYMBALTA) PO SCH ×2 (12:24→21:41)
[2019-12-04] MEDS: ASPIRIN 81 MG ENTERIC TAB PO SCH (12:24)
[2019-12-04 14:00] VITALS: BP 160/79
--- NOTE | 2019-12-04 20:14 | ECGEPIP ---
[facility] - ED Test Date: 2019-12-03 Pat Name: SANIYA HOWELL Department: Room: - Gender: Female Manager Hospice: maria t : 1960 Requested By: Joey Traore Order Number: [id number] Reading MD: Araceli Mccurdy Measurements Intervals [place] Rate: 78 P: 42 ID: 130 QRS: 22 QRSD: 93 T: 52 QT: 396 QTc: 453 Interpretive Statements SINUS RHYTHM NONSPECIFIC T-WAVE ABNORMALITY PRWP SIMILAR 09/07/18 Electronically Signed on 12-04-2019 20:14:32 EST by Araceli Mccurdy
[2019-12-04] MEDS: CEPHALEXIN 500 MG CAP PO SCH (21:41)
[2019-12-04] MEDS: ATORVASTATIN 20 MG TAB PO SCH (21:41)
[2019-12-04 22:00] VITALS: BP 133/62
[2019-12-05] MEDS: HEPARIN SOD (PORCINE) 5000 UNITS/ML VIAL (J1644 PER 1000UNITS) SC SCH ×3 (00:44→21:43)
[2019-12-05 06:00] VITALS: BP 155/84
[2019-12-05 06:49] LABS: HEMATOCRIT 28.4 % (36.0-47.0); HEMOGLOBIN 9.2 g/dl (12.0-15.5); MEAN CORPUSCULAR HEMOGLOBIN 33.3 pg (27.0-33.0); MEAN CORPUSCULAR HGB CONC 32.4 g/dl (32.0-36.5); MEAN CORPUSCULAR VOLUME 102.9 fl (80.0-96.0); PLATELET COUNT, AUTOMATED 134 10^3/uL (150-450); RED BLOOD COUNT 2.76 10^6/uL (4.00-5.40); WHITE BLOOD COUNT 4.3 10^3/uL (4.0-10.0)
[2019-12-05 07:14] LABS: ALT/SGPT 23 U/L (12-78); BILIRUBIN,TOTAL 0.7 MG/DL (0.2-1.0); BLOOD UREA NITROGEN 8 MG/DL (7-18); CALCIUM LEVEL 8.5 MG/DL (8.5-10.1); CARBON DIOXIDE LEVEL 29 MEQ/L (21-32); CHLORIDE LEVEL 110 MEQ/L (98-107); CREATININE FOR GFR 0.67 MG/DL (0.55-1.30); GLOMERULAR FILTRATION RATE > 60.0 (>51); GLUCOSE, FASTING 115 MG/DL (70-100); POTASSIUM SERUM 3.8 MEQ/L (3.5-5.1); SODIUM LEVEL 144 MEQ/L (136-145); TOTAL PROTEIN 6.3 GM/DL (6.4-8.2)
[2019-12-05] MEDS: HumaLOG INSULIN (NovoLOG) PER UNIT SC SCH ×4 (10:30→21:00)
[2019-12-05] MEDS: CYANOCOBALAMIN 500 MCG TAB PO SCH (10:31)
[2019-12-05] MEDS: OMEPRAZOLE 20 MG CAP PO SCH ×2 (10:31→21:41)
[2019-12-05] MEDS: LACTULOSE 20 GM/30 ML SYRUP UD PO SCH ×3 (10:31→21:40)
[2019-12-05] MEDS: FUROSEMIDE 20 MG TAB PO SCH (10:31)
[2019-12-05] MEDS: ASPIRIN 81 MG ENTERIC TAB PO SCH (10:31)
[2019-12-05] MEDS: DOCUSATE SODIUM 100 MG CAP PO SCH ×3 (10:31→21:41)
[2019-12-05] MEDS: VITAMIN D (CHOLECALCIFEROL) 400 INTERNATIONAL UNITS TAB PO SCH ×2 (10:31→21:40)
[2019-12-05] MEDS: POTASSIUM CHLORIDE 10 MEQ SR TABLET PO SCH ×2 (10:32→21:41)
[2019-12-05] MEDS: CelecoXIB (CeleBREX) 100 MG CAP PO SCH (10:32)
[2019-12-05] MEDS: busPIRone 10 MG TAB PO SCH ×2 (10:32→21:41)
[2019-12-05] MEDS: DULoxetine 30 MG CAP (CYMBALTA) PO SCH ×2 (10:32→21:40)
[2019-12-05] MEDS: FLUTICASONE PROP 0.05% NASAL SPRAY 16 GM (FLONASE) NARES SCH (10:36)
--- NOTE | 2019-12-05 10:44 | IPNPDOC ---
Subjective Date Seen The patient was seen on 12/05/19. Subjective Chief Complaint/HPI says she feels a little nauseated today Constitutional: Denies: Chills ENT: Denies: Head Aches Pulmonary: Denies: Dyspnea, Cough Cardiovascular: Denies: Chest Pain, Palpitations, Orthopnea Gastrointestinal: Reports: Nausea (mild, no emesis); Denies: Vomiting, Abdominal Pain, Diarrhea Hematologic: Denies: Bruising Endocrine: Denies: Polydipsia, Polyuria Neurological: Denies: Weakness, Numbness Psych: Reports: Mood Normal Objective Physical Examination General Exam: Positive: Alert, No Acute Distress Chest Exam: Positive: Clear to auscultation; Negative: Rales, Rhonchi, Wheezing Heart Exam: Positive: Rate Normal, Regular Rhythm Abdomen Exam: Positive: Normal bowel sounds, Soft; Negative: Tenderness Extremity Exam: Negative: Edema Skin Exam: Positive: Nl turgor and temperature Psych Exam: Positive: Mental status NL (alert, oriented to name, place, year a nd president) Assessment /Plan Problems (1) Acute hepatic encephalopathy Status: Acute Response to Treatment: Improving Problem Text: 12/06: MS improved, oriented. NH3 better but still above admission level. Mental status has improved but ammonia level has gone up fropm 75 to 101 today Lactulose restarted yesterday - 30 ml TID (Had not taken it for 2 days) For some reason Xifaxamin not restarted - I will order this Monitor trend (2) Anemia Status: Acute Problem Text: 12/06 up a little today. no evidence of active bleeding. Chronic anemia - hgb down slighlty - monitor trend No signs of active bleeding On ASA and Celebrex and SQ heparin - hold if anemia worsens (3) DJD (degenerative joint disease), lumbar Status: Chronic Problem Text: Normally on Butrans and Gabapentin - both on hold currently due to mental status change - restart if remains stable (4) NAFLD (nonalcoholic fatty liver disease) Status: Acute Response to Treatment: Stable (5) Morbid obesity Status: Chronic Response to Treatment: Stable (6) Diabetes mellitus Status: Chronic Response to Treatment: Stable Problem Text: Normally on Trulicity 1.5 Q week and Metformin Cont SSI for now Blood sugars only 100 - 140 (7) Neurogenic bladder Status: Chronic Problem Text: Straight caths at baseline U/C negative B/C negative (8) H/O recurrent urinary tract infection Status: Chronic Problem Text: Normally on prophylactic Cephalexin 500 QD - restart this No sign of acute infection U/C and B/C negative Lactic acid level was elevated on admission but normal today Plan/VTE VTE Prophylaxis Ordered?: Yes (SQ heparin) Plan Therapy: PT Anticipated Discharge: Assisted Living VS, I&O, 24H, Fishbone Vital Signs/I&O Vital Signs Date Time Temp Pulse Resp B/P (MAP) Pulse Ox O2 Delivery O2 Flow Rate FiO2 12/05/19 06:00 97.9 75 20 155/84 (107) 98 Room Air I&O- Last 24 Hours up to 6 AM 12/05/19 06:00 Intake Total 540 ml Output Total 0 ml Balance 540 ml Laboratory Data 24H LABS Laboratory Tests 2 12/04/19 17:00: Bedside Glucose (Misc Panel) 132H 12/04/19 21:01: Bedside Glucose (Misc Panel) 156H 12/05/19 06:34: Nucleated Red Blood Cells % (auto) 0.0, Anion Gap 5L, Glomerular Filtration Rate > 60.0, Calcium Level 8.5, Total Bilirubin 0.7, Aspartate Amino Transf (AST/SGOT) 34, Alanine Aminotransferase (ALT/SGPT) 23, Alkaline Phosphatase 80, Ammonia 93H, Total Protein 6.3L, Albumin 3.0L, Albumin/Globulin Ratio 0.91L CBC/BMP Laboratory Tests 12/05/19 06:34 Microbiology Microbiology 12/03/19 Urine Culture - Final, Complete 12/03/19 Blood Culture - Preliminary, Resulted No Growth after 48 hours. All Specime... 12/03/19 Blood Culture - Preliminary, Resulted No Growth after 48 hours. All Specime... David Torres MD Dec 05, 2019 10:44
[2019-12-05 14:00] VITALS: BP 136/75
[2019-12-05] MEDS: ATORVASTATIN 20 MG TAB PO SCH (21:40)
[2019-12-05] MEDS: CEPHALEXIN 500 MG CAP PO SCH (21:41)
[2019-12-05 22:00] VITALS: BP 135/66
[2019-12-06] MEDS: ACETAMINOPHEN TAB 650MG DOSE (2X325MG) PO PRN (02:51)
[2019-12-06 06:00] VITALS: BP 140/71
[2019-12-06 06:26] LABS: HEMATOCRIT 31.2 % (36.0-47.0); HEMOGLOBIN 9.9 g/dl (12.0-15.5); MEAN CORPUSCULAR HEMOGLOBIN 32.9 pg (27.0-33.0); MEAN CORPUSCULAR HGB CONC 31.7 g/dl (32.0-36.5); MEAN CORPUSCULAR VOLUME 103.7 fl (80.0-96.0); PLATELET COUNT, AUTOMATED 146 10^3/uL (150-450); RED BLOOD COUNT 3.01 10^6/uL (4.00-5.40); WHITE BLOOD COUNT 5.1 10^3/uL (4.0-10.0)
[2019-12-06] MEDS: HumaLOG INSULIN (NovoLOG) PER UNIT SC SCH ×4 (07:30→21:00)
[2019-12-06] MEDS: CYANOCOBALAMIN 500 MCG TAB PO SCH (08:06)
[2019-12-06] MEDS: FUROSEMIDE 20 MG TAB PO SCH (08:06)
[2019-12-06] MEDS: HEPARIN SOD (PORCINE) 5000 UNITS/ML VIAL (J1644 PER 1000UNITS) SC SCH ×2 (08:06→21:48)
[2019-12-06] MEDS: DOCUSATE SODIUM 100 MG CAP PO SCH ×2 (08:06→21:00)
[2019-12-06] MEDS: VITAMIN D (CHOLECALCIFEROL) 400 INTERNATIONAL UNITS TAB PO SCH ×2 (08:06→21:48)
[2019-12-06] MEDS: LACTULOSE 20 GM/30 ML SYRUP UD PO SCH ×3 (08:06→21:48)
[2019-12-06] MEDS: ASPIRIN 81 MG ENTERIC TAB PO SCH (08:06)
[2019-12-06] MEDS: DULoxetine 30 MG CAP (CYMBALTA) PO SCH ×2 (08:07→21:49)
[2019-12-06] MEDS: busPIRone 10 MG TAB PO SCH ×2 (08:07→21:48)
[2019-12-06] MEDS: OMEPRAZOLE 20 MG CAP PO SCH ×2 (08:07→21:49)
[2019-12-06] MEDS: CelecoXIB (CeleBREX) 100 MG CAP PO SCH (08:07)
[2019-12-06] MEDS: POTASSIUM CHLORIDE 10 MEQ SR TABLET PO SCH ×2 (08:07→21:49)
[2019-12-06] MEDS: FLUTICASONE PROP 0.05% NASAL SPRAY 16 GM (FLONASE) NARES SCH (08:08)
--- NOTE | 2019-12-06 11:05 | IPNPDOC ---
Subjective Date Seen The patient was seen on 12/06/19. Subjective Chief Complaint/HPI reports some abdominal discomfort today. Constitutional: Denies: Chills ENT: Denies: Head Aches Skin: Denies: Rash Pulmonary: Denies: Dyspnea Cardiovascular: Denies: Palpitations, Orthopnea Gastrointestinal: Reports: Abdominal Pain (mild diffuse); Denies: Nausea Hematologic: Denies: Bruising Endocrine: Denies: Polydipsia Neurological: Denies: Weakness Psych: Reports: Mood Normal Objective Physical Examination General Exam: Positive: Alert (alert but confused), No Acute Distress Chest Exam: Positive: Clear to auscultation; Negative: Rales, Rhonchi, Wheezing Heart Exam: Positive: Rate Normal, Regular Rhythm Abdomen Exam: Positive: Normal bowel sounds, Soft; Negative: Tenderness Extremity Exam: Negative: Edema Skin Exam: Positive: Nl turgor and temperature Psych Exam: Negative: Mental status NL (today she is alert,oriented to place, but not to day of the week. when asked who her Doctor is, she repeated the erroneous day of the week.) Assessment /Plan Problems (1) Acute hepatic encephalopathy Status: Acute Response to Treatment: Improving Problem Text: 12/06: not as good as yesterday, even though her ammonia level has improved some. Maybe she needs a dose increase for the lactulose. She has mild diffuse abdominal discomfort today but no guarding or rebound and active bowel sounds. No fever and no leukocytosis. Not ready for discharge today due to worsening of mental status compared to yesterday. 12/05: MS improved, oriented. NH3 better but still above admission level. Mental status has improved but ammonia level has gone up fropm 75 to 101 today Lactulose restarted yesterday - 30 ml TID (Had not taken it for 2 days) For some reason Xifaxamin not restarted - I will order this Monitor trend (2) Anemia Status: Acute Problem Text: 12/06: Hgb continues to improve. 12/05:up a little today. no evidence of active bleeding. Chronic anemia - hgb down slighlty - monitor trend No signs of active bleeding On ASA and Celebrex and SQ heparin - hold if anemia worsens (3) DJD (degenerative joint disease), lumbar Status: Chronic Problem Text: Normally on Butrans and Gabapentin - both on hold currently due to mental status change - restart if remains stable (4) NAFLD (nonalcoholic fatty liver disease) Status: Acute Response to Treatment: Stable (5) Morbid obesity Status: Chronic Response to Treatment: Stable (6) Diabetes mellitus Status: Chronic Response to Treatment: Stable Problem Text: Normally on Trulicity 1.5 Q week and Metformin Cont SSI for now Blood sugars only 100 - 140 (7) Neurogenic bladder Status: Chronic Problem Text: Straight caths at baseline U/C negative B/C negative (8) H/O recurrent urinary tract infection Status: Chronic Problem Text: Normally on prophylactic Cephalexin 500 QD - restart this No sign of acute infection U/C and B/C negative Lactic acid level was elevated on admission but normal today (9) Chronic back pain Status: Chronic Response to Treatment: Stable Problem Text: uses Butrans patch but may have trouble leaving the patch in place, due to confusion. Plan/VTE VTE Prophylaxis Ordered?: Yes (SQ heparin) Plan Therapy: PT Anticipated Discharge: Assisted Living VS, I&O, 24H, Fishbone Vital Signs/I&O Vital Signs Date Time Temp Pulse Resp B/P (MAP) Pulse Ox O2 Delivery O2 Flow Rate FiO2 12/06/19 06:00 97.8 83 20 140/71 (94) 99 12/05/19 14:00 Room Air I&O- Last 24 Hours up to 6 AM 12/06/19 06:00 Intake Total 840 ml Output Total 350 ml Balance 490 ml Laboratory Data 24H LABS Laboratory Tests 2 12/05/19 13:52: Bedside Glucose (Misc Panel) 148H 12/05/19 17:13: Bedside Glucose (Misc Panel) 123H 12/05/19 20:59: Bedside Glucose (Misc Panel) 152H 12/06/19 06:04: Nucleated Red Blood Cells % (auto) 0.0, Ammonia 80H 12/06/19 06:25: Bedside Glucose (Misc Panel) 105 CBC/BMP Laboratory Tests 12/06/19 06:04 Microbiology Microbiology 12/03/19 Urine Culture - Final, Complete 12/03/19 Blood Culture - Preliminary, Resulted No Growth after 72 hours. All specime... 12/03/19 Blood Culture - Preliminary, Resulted No Growth after 72 hours. All specime... David Torres MD Dec 06, 2019 11:05
[2019-12-06 14:00] VITALS: BP 142/71
[2019-12-06] MEDS: CEPHALEXIN 500 MG CAP PO SCH (21:49)
[2019-12-06] MEDS: ATORVASTATIN 20 MG TAB PO SCH (21:49)
[2019-12-06 22:00] VITALS: BP 149/72
[2019-12-07 06:00] VITALS: BP 135/65
[2019-12-07 06:11] LABS: HEMATOCRIT 30.7 % (36.0-47.0); HEMOGLOBIN 9.7 g/dl (12.0-15.5); MEAN CORPUSCULAR HEMOGLOBIN 32.8 pg (27.0-33.0); MEAN CORPUSCULAR HGB CONC 31.6 g/dl (32.0-36.5); MEAN CORPUSCULAR VOLUME 103.7 fl (80.0-96.0); PLATELET COUNT, AUTOMATED 149 10^3/uL (150-450); RED BLOOD COUNT 2.96 10^6/uL (4.00-5.40); WHITE BLOOD COUNT 5.5 10^3/uL (4.0-10.0)
[2019-12-07] MEDS: HumaLOG INSULIN (NovoLOG) PER UNIT SC SCH ×4 (08:30→21:00)
--- NOTE | 2019-12-07 09:27 | IPNPDOC ---
Subjective Date Seen The patient was seen on 12/07/19. Subjective Chief Complaint/HPI Pt this morning is confused, ROS is limited as a result. Nursing with new concerns, but notes increased confusion yet as well in comparison with Saturday and Saturday. General: Reports: ROS Unobtainable Objective Physical Examination General Exam: Positive: No Acute Distress; Negative: Alert (confused, slow to respond) ENT Exam: Positive: Mucous membr. moist/pink Chest Exam: Positive: Clear to auscultation; Negative: Rales, Rhonchi, Wheezing Heart Exam: Positive: Rate Normal, Regular Rhythm Abdomen Exam: Positive: Normal bowel sounds, Soft; Negative: Tenderness Extremity Exam: Negative: Edema Skin Exam: Positive: Nl turgor and temperature Psych Exam: Negative: Mental status NL (Savannah doesn't recognize me, she doesn't know where she is or the year, she does tell me her name. ) Assessment /Plan Problems (1) Syncope and collapse Status: Acute Problem Text: favor micturition-induced 12/07/19 1545, returning from [facility] p urination-no precedent sx, LOC, adamant that she did trip, nursing heard px land of floor-POI L lateral hip/knee, cx spine; therefore, STAT L hip, CX spine, head CT, L knee xray (previous L THR, C4-6 AC DF), changed back to OTB c assist ONLY (2) Acute hepatic encephalopathy Status: Acute Response to Treatment: Improving Problem Text: on HD lact 30 QID, rifax 400 BID (CHRONICALLY non-compliant c lact) 12/07 Her Ammonia level cont to trend down it is 64 today, her lactulose is at 30 ml TID, concern for alternative cause of her confusion given improvement in her Ammonia level. BLood and urine cultures done on admission both Neg, she is afebrile, will obtain CT head if she is able to tolerate this. 12/04 101 12/03 BCX2 NG 12/03 UCX NG (3) Anemia Status: Acute Response to Treatment: Stable Problem Text: 12/07 held jose (on asa 81, heparin px) baseline hgb 10s, macrocytic (4) DJD (degenerative joint disease), lumbar Status: Chronic Problem Text: Normally on Butrans and Gabapentin - both on hold currently due to mental status change - restart if remains stable (5) NAFLD (nonalcoholic fatty liver disease) Status: Acute Response to Treatment: Stable (6) Morbid obesity Status: Chronic Response to Treatment: Stable (7) Diabetes mellitus Status: Chronic Response to Treatment: Stable Problem Text: Normally on Trulicity 1.5 Q week and Metformin Cont SSI for now Blood sugars only 100 - 140 (8) Neurogenic bladder Status: Chronic Problem Text: Straight caths at baseline U/C negative B/C negative (9) H/O recurrent urinary tract infection Status: Chronic Problem Text: Normally on prophylactic Cephalexin 500 QD - restart this No sign of acute infection U/C and B/C negative Lactic acid level was elevated on admission but normal today (10) Chronic back pain Status: Chronic Response to Treatment: Stable Problem Text: HD Burtrans 5 held 2 MSC (11) Physical deconditioning Status: Chronic Problem Text: will need to reassess came from [facility] 12/04 cleared by PT Plan/VTE VTE Prophylaxis Ordered?: Yes (SQ heparin) Plan Therapy: PT Anticipated Discharge: Assisted Living VS, I&O, 24H, Fishbone Vital Signs/I&O Vital Signs Date Time Temp Pulse Resp B/P (MAP) Pulse Ox O2 Delivery O2 Flow Rate FiO2 12/07/19 06:00 98.6 83 18 135/65 (88) 96 12/05/19 14:00 Room Air I&O- Last 24 Hours up to 6 AM 12/07/19 06:00 Intake Total 1320 ml Output Total 850 ml Balance 470 ml Laboratory Data 24H LABS Laboratory Tests 2 12/06/19 11:36: Bedside Glucose (Misc Panel) 114H 12/06/19 17:04: Bedside Glucose (Misc Panel) 161H 12/06/19 21:05: Bedside Glucose (Misc Panel) 153H 12/07/19 05:52: Nucleated Red Blood Cells % (auto) 0.0, Ammonia 64H 12/07/19 08:32: Bedside Glucose (Misc Panel) 121H CBC/BMP Laboratory Tests 12/07/19 05:52 Microbiology Microbiology 12/03/19 Urine Culture - Final, Complete 12/03/19 Blood Culture - Preliminary, Resulted No Growth after 72 hours. All specime... 12/03/19 Blood Culture - Preliminary, Resulted No Growth after 72 hours. All specime... LION CARTY PA-C Dec 07, 2019 09:27 Andrew Beck M.D. Dec 07, 2019 16:19
--- NOTE | 2019-12-07 10:39 | REPVR ---
PROCEDURE INFORMATION: Exam: CT Head Without Contrast Exam date and time: 12/07/2019 9:52 AM Age: 59 years old Clinical indication: Altered mental status/memory loss; Additional info: AMS TECHNIQUE: Imaging protocol: Computed tomography of the head without contrast. Radiation optimization: All CT scans at this facility use at least one of these dose optimization techniques: automated exposure control; mA and/or kV adjustment per patient size (includes targeted exams where dose is matched to clinical indication); or iterative reconstruction. COMPARISON: CT Head without contrast 09/07/2018 2:14 PM FINDINGS: Brain: Mild cerebral and cerebellar volume loss, prominent for age. No hemorrhage or edema seen. Ventricles: No ventriculomegaly. Bones/joints: No acute calvarial fracture seen. Sinuses: No air-fluid levels. Focal left ethmoid opacity. Mastoid air cells: Visualized mastoid air cells are well aerated. Soft tissues: Unremarkable. IMPRESSION: No acute intracranial abnormality seen. Electronically signed by: Tere Christian On 12/07/2019 10:39:32 AM
[2019-12-07] MEDS: ASPIRIN 81 MG ENTERIC TAB PO SCH (11:01)
[2019-12-07] MEDS: CelecoXIB (CeleBREX) 100 MG CAP PO SCH (11:01)
[2019-12-07] MEDS: DOCUSATE SODIUM 100 MG CAP PO SCH ×2 (11:01→21:07)
[2019-12-07] MEDS: FLUTICASONE PROP 0.05% NASAL SPRAY 16 GM (FLONASE) NARES SCH (11:01)
[2019-12-07] MEDS: busPIRone 10 MG TAB PO SCH ×2 (11:02→21:06)
[2019-12-07] MEDS: FUROSEMIDE 20 MG TAB PO SCH (11:02)
[2019-12-07] MEDS: DULoxetine 30 MG CAP (CYMBALTA) PO SCH ×2 (11:02→21:07)
[2019-12-07] MEDS: CYANOCOBALAMIN 500 MCG TAB PO SCH (11:02)
[2019-12-07] MEDS: OMEPRAZOLE 20 MG CAP PO SCH ×2 (11:02→21:07)
[2019-12-07] MEDS: POTASSIUM CHLORIDE 10 MEQ SR TABLET PO SCH ×2 (11:02→21:07)
[2019-12-07] MEDS: LACTULOSE 20 GM/30 ML SYRUP UD PO SCH ×4 (11:03→21:06)
[2019-12-07] MEDS: HEPARIN SOD (PORCINE) 5000 UNITS/ML VIAL (J1644 PER 1000UNITS) SC SCH ×2 (11:03→21:08)
[2019-12-07] MEDS: VITAMIN D (CHOLECALCIFEROL) 400 INTERNATIONAL UNITS TAB PO SCH ×2 (12:40→21:07)
[2019-12-07 14:00] VITALS: BP 155/84
[2019-12-07 15:55] VITALS: BP 148/70
[2019-12-07] MEDS: ACETAMINOPHEN TAB 650MG DOSE (2X325MG) PO PRN ×2 (16:30→21:09)
--- NOTE | 2019-12-07 17:18 | REP ---
Left knee five views: The distal tip of an intramedullary vinnie is in the distal femur. There is no fracture or dislocation. There is demineralization. The joint space is unremarkable. There is no effusion. There are no calcifications. Impression: There is no fracture or dislocation. There is no effusion. The tip of an intramedullary vinnie is identified in the distal femur. Electronically Signed by Jose Enrique Elmore MD 12/07/2019 05:10 P
--- NOTE | 2019-12-07 17:46 | REPVR ---
PROCEDURE INFORMATION: Exam: CT Head Without Contrast Exam date and time: 12/07/2019 4:03 PM Age: 59 years old Clinical indication: Injury or trauma; Fall; Initial encounter; Blunt trauma (contusions or hematomas); Additional info: Fall 1545 12/07/19. TECHNIQUE: Imaging protocol: Computed tomography of the head without contrast. Radiation optimization: All CT scans at this facility use at least one of these dose optimization techniques: automated exposure control; mA and/or kV adjustment per patient size (includes targeted exams where dose is matched to clinical indication); or iterative reconstruction. COMPARISON: CT Head without contrast 12/07/2019 9:47 AM FINDINGS: Brain: Cerebral and cerebellar volume loss, as before. No hemorrhage or edema seen. Ventricles: The ventricles are stable in size. No ventriculomegaly. Bones/joints: No acute calvarial fracture seen. Sinuses: Visualized sinuses are unremarkable. No fluid levels. Mastoid air cells: Visualized mastoid air cells are well aerated. Soft tissues: Unremarkable. IMPRESSION: No acute intracranial abnormality seen. No significant interval change. Electronically signed by: Tere Christian On 12/07/2019 17:46:13 PM
--- NOTE | 2019-12-07 17:53 | REPVR ---
PROCEDURE INFORMATION: Exam: CT Cervical Spine Without Contrast Exam date and time: 12/07/2019 4:30 PM Age: 59 years old Clinical indication: Injury or trauma; Fall; Initial encounter; Blunt trauma; Additional info: Sp fall TECHNIQUE: Imaging protocol: Computed tomography images of the cervical spine without contrast. Radiation optimization: All CT scans at this facility use at least one of these dose optimization techniques: automated exposure control; mA and/or kV adjustment per patient size (includes targeted exams where dose is matched to clinical indication); or iterative reconstruction. COMPARISON: CT Spine,cervical w/o contrast 04/02/2016 7:45 AM FINDINGS: Vertebrae: Straightening of the cervical lordosis may be positional or due to muscle spasm. Prior ACDF from C4 through C6. The hardware appears intact and in place. There appears to be solid osseous incorporation across the C5-C6 interbody graft. Fusion is seen between interbody graft and C5 superior endplate, no definite union between the graft and the C4 inferior endplate; the appearance of a nonunion/pseudoarthrosis superiorly. This is unchanged. Discs/Spinal canal/Neural foramina: A small calcified central disc protrusion is again demonstrated at C3-C4. Soft tissues: Unremarkable. Lungs: Lung apices are normal. IMPRESSION: No cervical spine fracture seen. Electronically signed by: Tere Christian On 12/07/2019 17:53:08 PM
--- NOTE | 2019-12-07 18:00 | REPVR ---
PROCEDURE INFORMATION: Exam: CT Left Lower Extremity Without Contrast, Hip Exam date and time: 12/07/2019 4:03 PM Age: 59 years old Clinical indication: Injury or trauma; Fall; Initial encounter; Blunt trauma; Hip; Left; Prior surgery; Additional info: Fall 1545 12/07/19 TECHNIQUE: Imaging protocol: CT of the Left lower extremity without contrast was performed. Exam focused on the hip. Radiation optimization: All CT scans at this facility use at least one of these dose optimization techniques: automated exposure control; mA and/or kV adjustment per patient size (includes targeted exams where dose is matched to clinical indication); or iterative reconstruction. COMPARISON: CR Hip,AP,LAT to include Pelvis 03/18/2018 8:06 PM FINDINGS: Bones/joints: Old left pubic rami fractures. Prior surgical fixation of a left hip fracture by antegrade intramedullary nail and dynamic interlocking screw. The fracture has healed. No new fracture identified. No dislocation. Soft tissues: Unremarkable. Vasculature: Some prominent vessels, presumably veins are noted in the anterior abdominal wall subcutaneous fat. IMPRESSION: No acute fracture seen. Electronically signed by: Tere Christian On 12/07/2019 17:59:57 PM
[2019-12-07 18:53] LABS: ALBUMIN 3.5 GM/DL (3.2-5.2); CALCIUM LEVEL 9.2 MG/DL (8.5-10.1); CREATININE FOR GFR 1.04 MG/DL (0.55-1.30); GLOMERULAR FILTRATION RATE 57.9 (>51); PHOSPHORUS LEVEL 3.6 MG/DL (2.5-4.9); POTASSIUM SERUM 3.8 MEQ/L (3.5-5.1)
[2019-12-07] MEDS: ATORVASTATIN 20 MG TAB PO SCH (21:07)
[2019-12-07] MEDS: CEPHALEXIN 500 MG CAP PO SCH (21:07)
[2019-12-07 22:00] VITALS: BP 146/88
[2019-12-08] MEDS: ACETAMINOPHEN TAB 650MG DOSE (2X325MG) PO PRN (03:43)
[2019-12-08 06:00] VITALS: BP 129/69
[2019-12-08 06:03] LABS: HEMATOCRIT 30.3 % (36.0-47.0); HEMOGLOBIN 9.5 g/dl (12.0-15.5); MEAN CORPUSCULAR HGB CONC 31.4 g/dl (32.0-36.5); MEAN CORPUSCULAR VOLUME 105.2 fl (80.0-96.0); PLATELET COUNT, AUTOMATED 133 10^3/uL (150-450); RED BLOOD COUNT 2.88 10^6/uL (4.00-5.40); WHITE BLOOD COUNT 6.1 10^3/uL (4.0-10.0)
[2019-12-08 06:33] LABS: ALBUMIN 3.1 GM/DL (3.2-5.2); ALT/SGPT 29 U/L (12-78); BILIRUBIN,TOTAL 1.2 MG/DL (0.2-1.0); BLOOD UREA NITROGEN 11 MG/DL (7-18); CALCIUM LEVEL 8.4 MG/DL (8.5-10.1); CARBON DIOXIDE LEVEL 25 MEQ/L (21-32); CHLORIDE LEVEL 111 MEQ/L (98-107); GLOMERULAR FILTRATION RATE > 60.0 (>51); GLUCOSE, FASTING 147 MG/DL (70-100); SODIUM LEVEL 141 MEQ/L (136-145); TOTAL PROTEIN 6.2 GM/DL (6.4-8.2)
[2019-12-08] MEDS: HumaLOG INSULIN (NovoLOG) PER UNIT SC SCH ×4 (08:55→20:53)
[2019-12-08] MEDS: LACTULOSE 20 GM/30 ML SYRUP UD PO SCH ×4 (08:56→20:59)
[2019-12-08] MEDS: POTASSIUM CHLORIDE 10 MEQ SR TABLET PO SCH ×2 (08:56→20:59)
[2019-12-08] MEDS: ASPIRIN 81 MG ENTERIC TAB PO SCH (08:56)
[2019-12-08] MEDS: HEPARIN SOD (PORCINE) 5000 UNITS/ML VIAL (J1644 PER 1000UNITS) SC SCH ×2 (08:56→21:00)
[2019-12-08] MEDS: DULoxetine 30 MG CAP (CYMBALTA) PO SCH ×2 (08:56→21:00)
[2019-12-08] MEDS: busPIRone 10 MG TAB PO SCH ×2 (08:57→20:59)
[2019-12-08] MEDS: VITAMIN D (CHOLECALCIFEROL) 400 INTERNATIONAL UNITS TAB PO SCH ×2 (08:57→20:59)
[2019-12-08] MEDS: CYANOCOBALAMIN 500 MCG TAB PO SCH (08:57)
[2019-12-08] MEDS: FUROSEMIDE 20 MG TAB PO SCH (08:57)
[2019-12-08] MEDS: OMEPRAZOLE 20 MG CAP PO SCH ×2 (08:57→20:59)
[2019-12-08] MEDS: DOCUSATE SODIUM 100 MG CAP PO SCH ×2 (08:57→21:00)
[2019-12-08] MEDS: FLUTICASONE PROP 0.05% NASAL SPRAY 16 GM (FLONASE) NARES SCH (08:57)
[2019-12-08] MEDS ORDERED: LACT10SO29 PO (10:50)
[2019-12-08 14:00] VITALS: BP 130/70
[2019-12-08] MEDS: ATORVASTATIN 20 MG TAB PO SCH (20:59)
[2019-12-08] MEDS: CEPHALEXIN 500 MG CAP PO SCH (21:00)
[2019-12-08 22:00] VITALS: BP 137/72
[2019-12-09 06:00] VITALS: BP 126/64
[2019-12-09] MEDS: LACTULOSE 20 GM/30 ML SYRUP UD PO SCH ×2 (09:10→12:10)
[2019-12-09] MEDS: HEPARIN SOD (PORCINE) 5000 UNITS/ML VIAL (J1644 PER 1000UNITS) SC SCH (09:10)
[2019-12-09] MEDS: DULoxetine 30 MG CAP (CYMBALTA) PO SCH (09:11)
[2019-12-09] MEDS: OMEPRAZOLE 20 MG CAP PO SCH (09:11)
[2019-12-09] MEDS: DOCUSATE SODIUM 100 MG CAP PO SCH (09:11)
[2019-12-09] MEDS: FUROSEMIDE 20 MG TAB PO SCH (09:11)
[2019-12-09] MEDS: ASPIRIN 81 MG ENTERIC TAB PO SCH (09:11)
[2019-12-09] MEDS: busPIRone 10 MG TAB PO SCH (09:11)
[2019-12-09] MEDS: VITAMIN D (CHOLECALCIFEROL) 400 INTERNATIONAL UNITS TAB PO SCH (09:11)
[2019-12-09] MEDS: CYANOCOBALAMIN 500 MCG TAB PO SCH (09:11)
[2019-12-09] MEDS: FLUTICASONE PROP 0.05% NASAL SPRAY 16 GM (FLONASE) NARES SCH (09:12)
[2019-12-09] MEDS: POTASSIUM CHLORIDE 10 MEQ SR TABLET PO SCH (09:12)
[2019-12-09] MEDS: HumaLOG INSULIN (NovoLOG) PER UNIT SC SCH ×2 (09:13→12:11)
[2019-12-09] MEDS ORDERED: LACT10SO29 PO (09:57)
--- NOTE | 2019-12-09 10:49 | DSES ---
DATE OF ADMISSION: 12/07/2019 DATE OF DISCHARGE: 12/08/2019 PRIMARY CARE PHYSICIAN: Dr. Andrew Beck HISTORY: This is a 59-year-old female patient who presented to [facility] Emergency Room with increased patient confusion. She has a history of hepatic encephalopathy secondary to cirrhosis with noncompliance of lactulose. She had not taken her lactulose in several days. She was admitted to the hospital with an elevated ammonia. She has been administered lactulose. She is taking her routine at-home medications with the exception of her pain medications, which have been discontinued, and she is reporting adequate pain control at this time. Patient had blood culture and urine culture on admission, which were both negative. She did suffer a fall yesterday, after having been cleared by physical therapy, and landed on the floor. She had CT scan of the head and extremities without any acute fracture. She denies any recurrent symptoms associated with this. DISCHARGE DIAGNOSES: 1. Hepatic encephalopathy. 2. Syncope. 3. Anemia of chronic disease. 4. Chronic back pain with lumbar degenerative joint disease. 5. Non-alcoholic fatty liver disease. 6. Morbid obesity. 7. Diabetes mellitus. 8. Neurogenic bladder. 9. History of recurrent urinary tract infections (UTIs). DISCHARGE MEDICATIONS: - lactulose 30 mL by mouth four times a day - aspirin 81 mg daily - atorvastatin 20 mg at bedtime - BuSpar 30 mg by mouth twice a day - calcium carbonate antacid 500 mg by mouth twice a day - Celebrex 200 mg by mouth every morning - cephalexin 500 mg by mouth at bedtime - vitamin D3 at 400 units by mouth twice a day - vitamin B12 at 500 mcg by mouth daily - Restasis 0.05 one drop each eye twice daily - Trulicity 1.5 mg subcutaneous weekly - duloxetine 60 mg by mouth twice a day - Flonase two sprays intranasally daily - furosemide 20 mg daily - gabapentin 900 mg by mouth three times a day - metformin 1000 mg twice a day - methocarbamol 750 mg three times a day - MiraLax 17 grams p daily as needed for constipation - potassium chloride 20 mEq by mouth twice a day - Xifaxan 400 mg by mouth twice a day - rizatriptan 10 mg daily as needed for migraine DISCHARGE PLAN: Followup with Dr. Beck in 1 weeks. ACTIVITY: As tolerated. DIET: Consistent-carbohydrate. MTDD
== END 2019-12-09 12:51 | DRG 442 ==
LOC: EDBD 08:24 → M ED 08:24 → M ED INP 08:25 → ENRESERV 12:33 → M MSPAV 13:39 → OBSVTOIN 12-07 09:29
PROVIDERS: ADMIT Internal Medicine; ATTEND Family Medicine
DX: K72.00 Acute and subacute hepatic failure without coma (principal); E87.2 Acidosis; Z91.14 Patient's other noncompliance with medication regimen; Z86.61 Personal history of infections of the central nervous system; K74.60 Unspecified cirrhosis of liver; R29.6 Repeated falls; E11.42 Type 2 diabetes mellitus with diabetic polyneuropathy; G43.909 Migraine, unspecified, not intractable, without status migrainosus; N31.9 Neuromuscular dysfunction of bladder, unspecified; Z87.440 Personal history of urinary (tract) infections; F32.9 Major depressive disorder, single episode, unspecified; F41.9 Anxiety disorder, unspecified; K21.9 Gastro-esophageal reflux disease without esophagitis; Z90.49 Acquired absence of other specified parts of digestive tract; Z98.1 Arthrodesis status; Z96.642 Presence of left artificial hip joint; Z87.891 Personal history of nicotine dependence; L89.159 Pressure ulcer of sacral region, unspecified stage; D64.9 Anemia, unspecified; Z98.84 Bariatric surgery status; E53.8 Deficiency of other specified B group vitamins; Z79.82 Long term (current) use of aspirin; Z79.84 Long term (current) use of oral hypoglycemic drugs; Z79.899 Other long term (current) drug therapy; Z88.1 Allergy status to other antibiotic agents; Z88.8 Allergy status to other drugs, medicaments and biological substances; Z91.040 Latex allergy status; Z91.018 Allergy to other foods; M54.5 Low back pain; K76.0 Fatty (change of) liver, not elsewhere classified; E66.01 Morbid (severe) obesity due to excess calories; Z68.35 Body mass index [BMI] 35.0-35.9, adult; R55 Syncope and collapse; Z72.3 Lack of physical exercise

== ENCOUNTER → 2019-12-17 | Outpatient (REF) | payer MEDICARE, MEDICAID ==
[~2019-12-17] MED LIST changes: +ASPI81CH33 PO; +BUTR10DI TOP; +CALC500C27 PO; +FLON1SPR NARES; +METF-791 PO; +POTA1TAB14 PO
[2019-12-17 17:51] LABS: BASO % 0.5 % (0.0-1.0); EOS # 0.6 10^3/uL (0.0-0.5); EOS % 8.4 % (0.0-3.0); HEMATOCRIT 30.2 % (36.0-47.0); HEMOGLOBIN 9.5 g/dl (12.0-15.5); LYMPH % 30.4 % (24.0-44.0); MEAN CORPUSCULAR HEMOGLOBIN 33.5 pg (27.0-33.0); MEAN CORPUSCULAR HGB CONC 31.5 g/dl (32.0-36.5); MEAN CORPUSCULAR VOLUME 106.3 fl (80.0-96.0); MONO # 0.7 10^3/uL (0.0-0.8); MONO % 10.4 % (0.0-5.0); NEUTROPHILS # 3.3 10^3/uL (1.5-8.5); NEUTROPHILS % 49.8 % (36.0-66.0); PLATELET COUNT, AUTOMATED 167 10^3/uL (150-450); RED BLOOD COUNT 2.84 10^6/uL (4.00-5.40); WHITE BLOOD COUNT 6.5 10^3/uL (4.0-10.0)
[2019-12-17 18:14] LABS: ALBUMIN 2.7 GM/DL (3.2-5.2); ALT/SGPT 30 U/L (12-78); BILIRUBIN,TOTAL 0.5 MG/DL (0.2-1.0); BLOOD UREA NITROGEN 13 MG/DL (7-18); CARBON DIOXIDE LEVEL 27 MEQ/L (21-32); CHLORIDE LEVEL 106 MEQ/L (98-107); CREATININE FOR GFR 0.96 MG/DL (0.55-1.30); GLOMERULAR FILTRATION RATE > 60.0 (>51); GLUCOSE, FASTING 215 MG/DL (70-100); POTASSIUM SERUM 4.1 MEQ/L (3.5-5.1); SODIUM LEVEL 140 MEQ/L (136-145); TOTAL PROTEIN 6.2 GM/DL (6.4-8.2)
== END ==
LOC: M SFHCPLAZ 15:45
PROVIDERS: ATTEND Family Medicine
DX: M47.816 Spondylosis without myelopathy or radiculopathy, lumbar region (principal)

== ENCOUNTER → 2020-01-19 | Outpatient (REF) | payer MEDICARE, MEDICAID ==
[2020-01-19 12:45] LABS: BASO # 0.1 10^3/uL (0.0-0.2); BASO % 0.5 % (0.0-1.0); EOS # 0.6 10^3/uL (0.0-0.5); EOS % 5.3 % (0.0-3.0); HEMATOCRIT 34.4 % (36.0-47.0); HEMOGLOBIN 10.9 g/dl (12.0-15.5); LYMPH # 2.1 10^3/uL (1.5-5.0); LYMPH % 19.5 % (24.0-44.0); MEAN CORPUSCULAR HEMOGLOBIN 33.9 pg (27.0-33.0); MEAN CORPUSCULAR HGB CONC 31.7 g/dl (32.0-36.5); MEAN CORPUSCULAR VOLUME 106.8 fl (80.0-96.0); MONO # 0.8 10^3/uL (0.0-0.8); MONO % 7.2 % (0.0-5.0); NEUTROPHILS # 7.1 10^3/uL (1.5-8.5); NEUTROPHILS % 67.2 % (36.0-66.0); PLATELET COUNT, AUTOMATED 258 10^3/uL (150-450); RED BLOOD COUNT 3.22 10^6/uL (4.00-5.40); WHITE BLOOD COUNT 10.6 10^3/uL (4.0-10.0)
[2020-01-19 13:19] LABS: ALBUMIN 2.8 GM/DL (3.2-5.2); ALT/SGPT 26 U/L (12-78); BILIRUBIN,TOTAL 0.8 MG/DL (0.2-1.0); BLOOD UREA NITROGEN 13 MG/DL (7-18); CALCIUM LEVEL 8.7 MG/DL (8.5-10.1); CARBON DIOXIDE LEVEL 22 MEQ/L (21-32); CHLORIDE LEVEL 106 MEQ/L (98-107); CREATININE FOR GFR 0.88 MG/DL (0.55-1.30); GLOMERULAR FILTRATION RATE > 60.0 (>51); GLUCOSE, FASTING 148 MG/DL (70-100); MAGNESIUM LEVEL 1.6 MG/DL (1.8-2.4); POTASSIUM SERUM 4.2 MEQ/L (3.5-5.1); SODIUM LEVEL 139 MEQ/L (136-145); TOTAL PROTEIN 6.7 GM/DL (6.4-8.2)
[2020-01-19 14:19] LABS: H PYLORI QUALITATIVE IgG NEGATIVE (NEGATIVE)
== END ==
PROVIDERS: ATTEND Family Medicine
DX: I50.32 Chronic diastolic (congestive) heart failure (principal)

== ENCOUNTER 2020-01-23 10:15 | Inpatient (IN) | payer MEDICARE, MEDICAID ==
[~2020-01-23] VITALS: Ht 160 cm; Wt 97.2 kg
[2020-01-23 11:15] LABS: BASO % 0.3 % (0.0-1.0); EOS # 0.5 10^3/uL (0.0-0.5); HEMATOCRIT 29.8 % (36.0-47.0); HEMOGLOBIN 9.6 g/dl (12.0-15.5); LYMPH # 1.8 10^3/uL (1.5-5.0); LYMPH % 31.6 % (24.0-44.0); MEAN CORPUSCULAR HEMOGLOBIN 33.7 pg (27.0-33.0); MEAN CORPUSCULAR HGB CONC 32.2 g/dl (32.0-36.5); MEAN CORPUSCULAR VOLUME 104.6 fl (80.0-96.0); MONO # 0.7 10^3/uL (0.0-0.8); MONO % 11.8 % (0.0-5.0); NEUTROPHILS # 2.8 10^3/uL (1.5-8.5); PLATELET COUNT, AUTOMATED 231 10^3/uL (150-450); RED BLOOD COUNT 2.85 10^6/uL (4.00-5.40); WHITE BLOOD COUNT 5.8 10^3/uL (4.0-10.0)
[2020-01-23 11:30] LABS: INR 1.23; PARTIAL THROMBOPLASTIN TIME 31.2 SECONDS (25.0-38.4); PROTHROMBIN TIME 15.3 SECONDS (11.8-14.0)
[2020-01-23] MEDS ORDERED: MORPHINE 4 MG/ML 1ML VIAL/SYRINGE (J2270) IV ONE (11:30)
[2020-01-23 11:38] LABS: ALBUMIN 2.3 GM/DL (3.2-5.2); ALT/SGPT 23 U/L (12-78); BILIRUBIN,DIRECT 0.3 MG/DL (0.0-0.2); BILIRUBIN,TOTAL 0.7 MG/DL (0.2-1.0); BLOOD UREA NITROGEN 7 MG/DL (7-18); CALCIUM LEVEL 8.3 MG/DL (8.5-10.1); CARBON DIOXIDE LEVEL 27 MEQ/L (21-32); CHLORIDE LEVEL 108 MEQ/L (98-107); CREATININE FOR GFR 0.73 MG/DL (0.55-1.30); GLOMERULAR FILTRATION RATE > 60.0 (>51); GLUCOSE, FASTING 87 MG/DL (70-100); LIPASE 90 U/L (73-393); POTASSIUM SERUM 4.2 MEQ/L (3.5-5.1); SODIUM LEVEL 142 MEQ/L (136-145); TOTAL PROTEIN 5.8 GM/DL (6.4-8.2)
[2020-01-23 11:39] LABS: CPK CREATINE PHOSPHOKINASE 82 U/L (26-192); MB/CK RELATIVE INDEX 2.44 (< OR =4); TROPONIN I < 0.02 NG/ML (< 0.10)
[2020-01-23] MEDS ORDERED: GASTROGRAFIN SOLUTION 30ML (Q9963) As Ordered ONE (11:57)
[2020-01-23] MEDS: GASTROGRAFIN SOLUTION 30ML (Q9963) PO SCH ×4 (12:00→13:30)
[2020-01-23] MEDS ORDERED: ISOVUE-370 76% 100ML VIAL (Q9967) As Ordered ONE (12:25)
[2020-01-23 13:52] LABS: INFLUENZA A AMPLIFICATION NEGATIVE (NEGATIVE); INFLUENZA B AMPLIFICATION NEGATIVE (NEGATIVE)
--- NOTE | 2020-01-23 15:19 | REP ---
REASON: Dyspnea. COMPARISON: Multiple, the latest 12/03/2019, a portable exam. Since the last exam, a few right basilar curvilinear opacities have developed with slight right CP angle blunting. The lung thorne are hypoexpanded compared to the prior exam. There is no change in the osseous structures. The heart is not enlarged. IMPRESSION: Subtle but new right basilar opacities. Unreviewed
[2020-01-23] MEDS ORDERED: cefTRIAXone SOD 1 GM in D5W MINI-BAG PLUS 50 ML IV ONE (15:45)
[2020-01-23] MEDS ORDERED: AZITHROMYCIN INJ 500 MG, VIAL MATE ADAPTER 1 EACH in D5W 250 ML IV ONE (16:00)
[2020-01-23] MEDS ORDERED: GLUCAGON FOR INJ 1 MG VIAL (J1610) SC PRN (16:30)
[2020-01-23] MEDS ORDERED: GLUCOSE 4 GM CHEW TABLET PO PRN (16:30)
[2020-01-23] MEDS ORDERED: DEXTROSE 50% 50 ML SYRINGE IV PRN (16:30)
[2020-01-23] MEDS: PERCOCET 5MG/325MG TAB PO PRN ×2 (16:43→22:49)
[2020-01-23] MEDS ORDERED: LIDOCAINE 5% OINT 30 GM TOP PRN (17:00)
[2020-01-23] MEDS ORDERED: SPIRONOLACTONE 50 MG TAB PO ONE (17:00)
[2020-01-23] MEDS ORDERED: ANEC4CRE3 TOP (17:12)
[2020-01-23] MEDS ORDERED: SPIR-10 PO (17:12)
[2020-01-23] MEDS ORDERED: LORA-622 PO (17:12)
[2020-01-23] MEDS ORDERED: D-40TAB2 PO (17:12)
[2020-01-23] MEDS ORDERED: VOLT1GEL15 TOP (17:12)
[2020-01-23] MEDS ORDERED: LACT10SO3 PO (17:12)
[2020-01-23] MEDS ORDERED: BUTR1DIS TOP (17:12)
[2020-01-23] MEDS ORDERED: POTA10CA32 PO (17:12)
--- NOTE | 2020-01-23 17:19 | HPEPDOC ---
[facility] Medical History & Physical Date of Admission Jan 23, 2020 Date of Service: Jan 23, 2020 Attending Physician: LANA SAENZ MD History and Physical CHIEF COMPLAINT: Abdominal pain and distention HISTORY OF PRESENT ILLNESS: 59-year-old female with past medical history of cirrhosis secondary to CHRISTIANSEN, diabetes mellitus, chronic back and neck pain secondary to injury with multiple surgeries, presents with worsening abdominal distention and pain. Patient has had worsening ascites over the past few weeks to months, has been followed up by her primary care physician and was scheduled for foreign outpatient ultrasound for possible paracentesis next week. Patient could not wait until next week due to worsening abdominal distention and pain and presented to the hospital today. In the ED, CT abdomen and pelvis shows significant ascites and anasarca. She denies any shortness of breath, chest pain, nausea, vomiting or diarrhea. 10 point review of system is negative except for above PAST MEDICAL HISTORY: 1. Nonalcoholic steatohepatitis. 2. Diabetes mellitus. 3. Hyperlipidemia. 4. Chronic back/neck pain PAST SURGICAL HISTORY: 1. Appendectomy. 2. Cholecystectomy. 3. Multiple back surgeries. 4. Hip replacement SOCIAL HISTORY: Previous smoker, smoked 1 pack per day for over 20 years. Previous alcohol use, quit over 20 years ago. Smokes marijuana FAMILY HISTORY: Father had heart disease ALLERGIES: Please see below. HOME MEDICATIONS: Please see below. PHYSICAL EXAMINATION: VITAL SIGNS: Please see below. GENERAL: Morbidly obese HEENT: Normocephalic, atraumatic, moist mucous membranes NECK: Supple CARDIOVASCULAR EXAMINATION: S1, S2, no murmurs RESPIRATORY EXAMINATION: Basilar rhonchi, no wheezing ABDOMINAL EXAMINATION: Soft, mild diffuse tenderness, distended, positive bowel sounds EXTREMITIES: Bilateral lower extremity pitting edema SKIN: No rash NEUROLOGICAL EXAMINATION: Alert and oriented 3, no focal deficits PSYCHIATRIC EXAMINATION: Calm and cooperative LABORATORY DATA: See below. IMAGING: CT abdomen and pelvis showing right lower lobe atelectasis, ascites and anasarca MICROBIOLOGY: Please see below. ASSESSMENT: 59-year-old female with past medical history of nonalcoholic steatohepatitis, cirrhosis and diabetes mellitus presents with worsening abdominal distention secondary to ascites. PLAN: 1. Cirrhosis secondary to nonalcoholic steatohepatitis. Significant ascites with hypoalbuminemia, will require therapeutic and diagnostic paracentesis, interventional radiology will not be available until Saturday, start Lasix 40 mg IV every 6 hours along with albumin 25 g every 6 hours 4 doses, Lasix to be given 20 minutes after albumin doses to augment diuresis as much as possible, start spironolactone 100 mg per day, potassium supplementation as needed, prophylactic ceftriaxone, fluid restricted to 1500 miles per day. Will place Arguello catheter, as patient has a history of neurogenic bladder and requires intermittent catheterization at baseline. Continue home regimen 2. Diabetes mellitus. Sliding scale insulin with meals and at bedtime 3. Chronic neck/back pain. Secondary to trauma, history of multiple surgeries, continue extensive pain regimen, add Percocet as needed for moderate pain. 4. Hyperlipidemia. Continue statin DVT prophylaxis: Heparin subcutaneous GI prophylaxis: Home PPI Vital Signs Vital Signs Date Time Temp Pulse Resp B/P (MAP) Pulse Ox O2 Delivery O2 Flow Rate FiO2 01/23/20 16:43 17 97 Room Air 01/23/20 15:30 92 120/59 (79) 01/23/20 10:16 97.5 Laboratory Data Labs 24H Laboratory Tests 2 01/23/20 11:03: Prothrombin Time 15.3H, Prothromb Time International Ratio 1.23, Activated Partial Thromboplast Time 31.2, Total Creatine Kinase 82, Creatine Kinase MB 2.0, Creatine Kinase MB Relative Index 2.44, Troponin I < 0.02 01/23/20 11:04: Immature Granulocyte % (Auto) 0.3, Neutrophils (%) (Auto) 48.0, Lymphocytes (%) (Auto) 31.6, Monocytes (%) (Auto) 11.8H, Eosinophils (%) (Auto) 8.0H, Basophils (%) (Auto) 0.3, Neutrophils # (Auto) 2.8, Lymphocytes # (Auto) 1.8, Monocytes # (Auto) 0.7, Eosinophils # (Auto) 0.5, Basophils # (Auto) 0.0, Nucleated Red Blood Cells % (auto) 0.0, Anion Gap 7L, Glomerular Filtration Rate > 60.0, Calcium Level 8.3L, Total Bilirubin 0.7, Direct Bilirubin 0.3H, Aspartate Amino Transf (AST/SGOT) 40H, Alanine Aminotransferase (ALT/SGPT) 23, Alkaline Phosphatase 177H, Total Protein 5.8L, Albumin 2.3L, Albumin/Globulin Ratio 0.66L, Lipase 90 01/23/20 13:17: Influenza Type A (RT-PCR) NEGATIVE, Influenza Type B (RT-PCR) NEGATIVE 01/23/20 15:23: Bedside Glucose (Misc Panel) 70 CBC/BMP Laboratory Tests 01/23/20 11:04 Home Medications Scheduled Aspirin (Aspirin) 81 Mg Tab.chew, 81 MG PO QAM Atorvastatin Calcium (Atorvastatin Calcium) 20 Mg Tablet, 20 MG PO QHS Buspirone HCl (Buspirone HCl) 30 Mg Tablet, 30 MG PO BID Calcium Carbonate (Antacid) 200 Mg Tab.chew, 500 MG PO BID Celecoxib (Celebrex) 200 Mg Capsule, 200 MG PO QAM Cephalexin (Cephalexin) 500 Mg Capsule, 500 MG PO QHS Cholecalciferol (Vitamin D3) (Vitamin D3) 400 Unit Capsule, 400 UNIT PO BID Cyanocobalamin (Vitamin B-12) (Vitamin B-12) 500 Mcg Tablet, 500 MCG PO QAM Cyclosporine (Restasis) 0.05 % Emu, 1 DROP OU BID Dulaglutide (Trulicity) 1.5 Mg/0.5 Ml Pen.injctr, 1.5 MG SQ QWEEK SUNDAYS AT 1800 Duloxetine Hcl (Duloxetine HCl) 60 Mg Capsule.dr, 60 MG PO BID Fluticasone Propionate (Flonase Allergy Relief) 9.9 Ml [place].susp, 2 SPRAY NARES DAILY Furosemide (Furosemide) 20 Mg Tab, 20 MG PO DAILY Gabapentin (Gabapentin) 300 Mg Capsule, 900 MG PO TID Lactulose (Lactulose) 10 Gm/15 Ml Solution, 30 ML PO QID for cirrhosis Lactulose (Lactulose) 10 Gm/15 Ml Solution, 30 ML PO QID for constipation Metformin HCl (Metformin HCl ER) 500 Mg Tab.er.24h, 1,000 MG PO BID Methocarbamol (Methocarbamol) 750 Mg Tablet, 750 MG PO TID Omeprazole (Omeprazole) 40 Mg Cap, 40 MG PO BID Potassium Chloride (Potassium Chloride) 20 Meq Tablet.er, 20 MEQ PO BID Rifaximin (Xifaxan) 200 Mg Tablet, 400 MG PO BID Scheduled PRN Polyethylene Glycol 3350 (Miralax) 119 Gm Powder, 17 GM PO DAILY PRN for CONSTIPATION dilute in 8 ounces of water or juice Rizatriptan Benzoate (Rizatriptan) 10 Mg Tab, 10 MG PO DAILY PRN for MIGRAINE Allergies Coded Allergies: ciprofloxacin (Verified Allergy, Intermediate, HIVES, CHILLS, AND FELT LIGHT HEADED, 10/28/19) fluconazole (Verified Allergy, Intermediate, HIVES, 10/28/19) latex (Verified Allergy, Intermediate, HIVES AND RASH ON HANDS, 10/28/19) strawberry (Verified Allergy, Unknown, 10/28/19) A-FIB/CHADSVASC A-FIB History Current/History of A-Fib/PAF?: No LANA SAENZ MD Jan 23, 2020 17:19
--- NOTE | 2020-01-23 17:29 | ECGEPIP ---
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
[2020-01-23 18:00] VITALS: BP 139/67
[2020-01-23 18:40] VITALS: BP 107/62
[2020-01-23] MEDS: HumaLOG INSULIN (NovoLOG) PER UNIT SC SCH ×2 (18:46→21:00)
[2020-01-23 20:57] VITALS: BP 134/67
[2020-01-23] MEDS: DICLOFENAC EPOLAMINE 1.3 % PATCH TOP SCH (21:00)
[2020-01-23] MEDS: LACTULOSE 20 GM/30 ML SYRUP UD PO SCH (21:59)
[2020-01-23 22:00] VITALS: BP 138/66
[2020-01-23] MEDS: VITAMIN D (CHOLECALCIFEROL) 400 INTERNATIONAL UNITS TAB PO SCH (22:01)
[2020-01-23] MEDS: ATORVASTATIN 20 MG TAB PO SCH (22:01)
[2020-01-23] MEDS: DULoxetine 30 MG CAP (CYMBALTA) PO SCH (22:01)
[2020-01-23] MEDS: GABAPENTIN 300 MG CAP PO SCH (22:01)
[2020-01-23] MEDS: methocarbamoL 750 MG TAB PO SCH (22:01)
[2020-01-23] MEDS: OMEPRAZOLE 20 MG CAP PO SCH (22:01)
[2020-01-23] MEDS: CALCIUM CARBONATE 500 MG CHEW U/D PO SCH (22:02)
[2020-01-23] MEDS: POTASSIUM CHLORIDE 10 MEQ SR TABLET PO SCH (22:02)
[2020-01-23] MEDS: busPIRone 10 MG TAB PO SCH (22:02)
[2020-01-23] MEDS: HEPARIN SOD (PORCINE) 5000 UNITS/ML VIAL (J1644 PER 1000UNITS) SC SCH (22:03)
[2020-01-23 22:43] VITALS: BP 134/68
[2020-01-23] MEDS: FUROSEMIDE 40 MG/4 ML VIAL (J1940) IV SCH (23:18)
[2020-01-24] VITALS (14 sets, daily range): BP systolic 111–141; BP diastolic 53–85
[2020-01-24] MEDS: cefTRIAXone SOD 2 GM in D5W MINI-BAG PLUS 50 ML IV SCH ×2 (00:11→23:26)
[2020-01-24] MEDS: LACTULOSE 20 GM/30 ML SYRUP UD PO SCH ×3 (05:39→21:06)
[2020-01-24] MEDS: HEPARIN SOD (PORCINE) 5000 UNITS/ML VIAL (J1644 PER 1000UNITS) SC SCH ×3 (05:39→21:06)
[2020-01-24] MEDS: PERCOCET 5MG/325MG TAB PO PRN ×3 (05:40→20:26)
[2020-01-24] MEDS: FUROSEMIDE 40 MG/4 ML VIAL (J1940) IV SCH ×4 (06:14→23:26)
[2020-01-24 06:38] LABS: HEMATOCRIT 27.2 % (36.0-47.0); HEMOGLOBIN 8.9 g/dl (12.0-15.5); MEAN CORPUSCULAR HGB CONC 32.7 g/dl (32.0-36.5); MEAN CORPUSCULAR VOLUME 103.8 fl (80.0-96.0); PLATELET COUNT, AUTOMATED 203 10^3/uL (150-450); RED BLOOD COUNT 2.62 10^6/uL (4.00-5.40); WHITE BLOOD COUNT 5.1 10^3/uL (4.0-10.0)
[2020-01-24 07:17] LABS: ALT/SGPT 20 U/L (12-78); BILIRUBIN,TOTAL 0.7 MG/DL (0.2-1.0); BLOOD UREA NITROGEN 6 MG/DL (7-18); CALCIUM LEVEL 8.4 MG/DL (8.5-10.1); CARBON DIOXIDE LEVEL 32 MEQ/L (21-32); CHLORIDE LEVEL 105 MEQ/L (98-107); CREATININE FOR GFR 0.69 MG/DL (0.55-1.30); GLOMERULAR FILTRATION RATE > 60.0 (>51); GLUCOSE, FASTING 92 MG/DL (70-100); MAGNESIUM LEVEL 1.5 MG/DL (1.8-2.4); POTASSIUM SERUM 3.5 MEQ/L (3.5-5.1); SODIUM LEVEL 141 MEQ/L (136-145); TOTAL PROTEIN 6.4 GM/DL (6.4-8.2)
[2020-01-24] MEDS: HumaLOG INSULIN (NovoLOG) PER UNIT SC SCH ×4 (07:30→20:42)
[2020-01-24] MEDS: GABAPENTIN 300 MG CAP PO SCH ×3 (08:46→20:28)
[2020-01-24] MEDS: LORATADINE 10 MG TAB PO SCH (08:46)
[2020-01-24] MEDS: CALCIUM CARBONATE 500 MG CHEW U/D PO SCH ×2 (08:46→20:27)
[2020-01-24] MEDS: CYANOCOBALAMIN 500 MCG TAB PO SCH (08:46)
[2020-01-24] MEDS: busPIRone 10 MG TAB PO SCH ×2 (08:46→20:27)
[2020-01-24] MEDS: ASPIRIN 81 MG CHEW TABLET PO SCH (08:47)
[2020-01-24] MEDS: SPIRONOLACTONE 50 MG TAB PO SCH (08:47)
[2020-01-24] MEDS: methocarbamoL 750 MG TAB PO SCH ×3 (08:47→20:26)
[2020-01-24] MEDS: DULoxetine 30 MG CAP (CYMBALTA) PO SCH ×2 (08:47→20:26)
[2020-01-24] MEDS: POTASSIUM CHLORIDE 10 MEQ SR TABLET PO SCH ×2 (08:48→20:26)
[2020-01-24] MEDS: OMEPRAZOLE 20 MG CAP PO SCH ×2 (08:48→20:27)
[2020-01-24] MEDS: DICLOFENAC EPOLAMINE 1.3 % PATCH TOP SCH ×2 (08:49→20:28)
[2020-01-24] MEDS: FLUTICASONE PROP 0.05% NASAL SPRAY 16 GM (FLONASE) NARES SCH (08:50)
[2020-01-24] MEDS: VITAMIN D (CHOLECALCIFEROL) 400 INTERNATIONAL UNITS TAB PO SCH ×2 (09:02→20:27)
--- NOTE | 2020-01-24 09:24 | REP ---
REASON: Generalized abdominal pain. Latest prior for comparison is 01/01/2019, a noncontrast-enhanced examination. CONTRAST TODAY: 100 mL Isovue-370. There is a micronodular surface to the liver with an abnormal caudate to left lobe of the liver ratio. There is moderate ascites. The spleen is within normal limits. The pancreas is atrophic. There is bilateral renal cortical thinning. The adrenal glands are unremarkable. The abdominal aorta and para-aortic regions are within normal limits. Small para-aortic lymph nodes are present. The bowel loops are within normal limits. Shotty lymph nodes are seen scattered throughout the small bowel mesentery. CT pelvis: There is free fluid in the pelvis. The pelvic bowel loops are unremarkable. There is no evidence of a pelvic mass or adenopathy. Bone window technique throughout the examination shows chronic spinal degenerative changes and previous spinal surgery. This is unchanged. There is a left hip internal fixation pin, status quo. There is diffuse increased density throughout the abdominal subcutanea. IMPRESSION: 1. Evidence of cirrhosis of the liver. 2. Ascites. 3. Chronic pancreatic and renal changes, as described above. 4. Evidence of anasarca. Correlate clinically. 5. Other findings, as described above. Unreviewed
--- NOTE | 2020-01-24 09:46 | REP ---
REASON: Dyspnea. COMPARISON: 12/06/2015 CONTRAST: 100 mL Isovue-370. There is a borderline right paratracheal lymph node, status quo. There is no mediastinal or hilar adenopathy. There are no pleural or pericardial effusions. The imaged osseous structures are within normal limits. There are multiple right-sided old rib fractures; however, they have developed since the last exam. Evaluation of the lung thorne shows patchy bibasilar opacities, right greater than left, representing a change from the prior exam. No abnormal patchy ground glass opacities are present. No new nodule has developed. IMPRESSION: Likely subsegmental atelectatic changes in the lung bases, right greater than left. Early basilar pneumonia cannot be ruled out. Unreviewed
--- NOTE | 2020-01-24 11:18 | IPNPDOC ---
Subjective Date Seen The patient was seen on 01/24/20. Subjective Chief Complaint/HPI Nursing reported that Ms. Evans wasn't responding well in the morning. At that time I requested an ammonia be checked. When I came to the floor they reported that she was normal again. The patient didn't have insight into the episode other than she was feeling more tired in the morning. She reports that her abdomen is more distended than usual and she was having more discomfort with breathing; this is why she came into the ER. Her breathing is a little improved, but her abdomen is still pretty distended. Constitutional: Denies: Chills, Fever Pulmonary: Reports: Other Symptoms (sense of difficulty taking a deep breath); Denies: Cough Cardiovascular: Denies: Chest Pain, Palpitations Genitourinary: Denies: Dysuria Psych: Reports: Mood Normal Objective Physical Examination General Exam: Positive: Alert, Cooperative, No Acute Distress (resting in bed watching TV when I entered the room) Eye Exam: Positive: Conjunctiva & lids normal; Negative: Sclera icteric ENT Exam: Positive: Mucous membr. moist/pink Neck Exam: Negative: Lymphadenopathy Chest Exam: Positive: Clear to auscultation, Diminished (secon ) Heart Exam: Positive: Rate Normal, Normal S1, Normal S2; Negative: Murmurs Abdomen Exam: Positive: Normal bowel sounds, Soft, Other (distended with a positive fluid shift); Negative: Tenderness Extremity Exam: Positive: Edema (there is 1+ pitting periperal edema) Neuro Exam: Positive: Normal Speech Psych Exam: Positive: Mood NL, Oriented x 3 Assessment /Plan Problems (1) Ascites of liver Status: Acute Problem Text: I suspect that she'll need a paracentesis tomorrow. Her albumin is actually improving today. She is on ceftriaxone for prophylaxis of spontaneous bacterial peritonitis. (2) NAFLD (nonalcoholic fatty liver disease) Status: Chronic Response to Treatment: Stable Problem Text: This is likely the source of her ascites. She is on Xifaxan to help control development of hepatic encephalopathy. (3) JETHRO (obstructive sleep apnea) Status: Chronic Problem Text: Nursing reports she was hard to wake this morning. They were concerned she was becoming encephalopathic. An ammonia level was normal. I suspect this episode had to do with uncontrolled sleep apnea. (4) Hypomagnesemia Status: Acute Problem Specific Plan: Repeat Labs Problem Text: Her magnesium was low today. Supplemented her with 2 g of IV magnesium and will recheck later today. I suspect that this electrolyte abnormality relates to fluid shifts related to the ascites. (5) Diabetes mellitus Status: Chronic Response to Treatment: Stable Problem Text: Continue current regimen including insulin sliding scale. (6) Morbid obesity Status: Chronic Problem Text: She has multiple medical comorbidities associated with this. This will complicate much of the rest of her medical care. (7) Chronic diastolic (congestive) heart failure Status: Chronic Response to Treatment: Controlled Discussed With: Patient Problem Specific Plan: Monitor Clinically Problem Text: Her heart failure seems reasonably compensated today. The problem seems to be primarily with ascitic fluid collecting in her abdomen. (8) Chronic back pain Status: Chronic Problem Text: Continue her home regimen. (9) Hyperlipidemia Status: Chronic Problem Text: Continue her home regimen. Plan/VTE VTE Prophylaxis Ordered?: Yes (subcutaneous heparin) VS, I&O, 24H, Fishbone Vital Signs/I&O Vital Signs Date Time Temp Pulse Resp B/P (MAP) Pulse Ox O2 Delivery O2 Flow Rate FiO2 01/24/20 10:07 96.5 81 16 125/85 95 Room Air I&O- Last 24 Hours up to 6 AM 01/24/20 06:00 Intake Total 1140.0 ml Output Total 2700 ml Balance -1560.0 ml Laboratory Data 24H LABS Laboratory Tests 2 01/23/20 13:17: Influenza Type A (RT-PCR) NEGATIVE, Influenza Type B (RT-PCR) NEGATIVE 01/23/20 15:23: Bedside Glucose (Misc Panel) 70 01/23/20 18:30: Bedside Glucose (Misc Panel) 106H 01/23/20 20:33: Bedside Glucose (Misc Panel) 172H 01/24/20 06:26: Nucleated Red Blood Cells % (auto) 0.0, Anion Gap 4L, Glomerular Filtration Rate > 60.0, Calcium Level 8.4L, Magnesium Level 1.5L, Total Bilirubin 0.7, Aspartate Amino Transf (AST/SGOT) 34, Alanine Aminotransferase (ALT/SGPT) 20, Alkaline Phosphatase 154H, Total Protein 6.4, Albumin 3.0#L, Albumin/Globulin Ratio 0.88L 01/24/20 09:35: Ammonia 20 CBC/BMP Laboratory Tests 01/24/20 06:26 Microbiology Microbiology 01/23/20 Blood Culture, Received Pending 01/23/20 Blood Culture, Received Pending Ambrose Elias MD Jan 24, 2020 11:18 am
[2020-01-24] MEDS: MAG SULF 1GM/100ML (MAG RUN) 1 GM in IV 1 EA IV SCH ×2 (12:14→14:36)
[2020-01-24 18:17] LABS: HEMATOCRIT 26.7 % (36.0-47.0); HEMOGLOBIN 8.6 g/dl (12.0-15.5)
[2020-01-24] MEDS: ATORVASTATIN 20 MG TAB PO SCH (20:26)
[2020-01-25] MEDS ORDERED: MAG SULF 1GM/100ML (MAG RUN) 1 GM in IV 1 EA IV ONE ×2 (00:15→12:00)
[2020-01-25] MEDS: LACTULOSE 20 GM/30 ML SYRUP UD PO SCH ×3 (05:00→21:55)
[2020-01-25] MEDS: FUROSEMIDE 40 MG/4 ML VIAL (J1940) IV SCH ×3 (05:00→18:42)
[2020-01-25] MEDS: HEPARIN SOD (PORCINE) 5000 UNITS/ML VIAL (J1644 PER 1000UNITS) SC SCH ×3 (05:00→21:58)
[2020-01-25] MEDS: PERCOCET 5MG/325MG TAB PO PRN (05:01)
[2020-01-25 06:24] VITALS: BP 125/66
[2020-01-25 06:24] LABS: BASO % 0.4 % (0.0-1.0); EOS # 0.4 10^3/uL (0.0-0.5); HEMATOCRIT 29.1 % (36.0-47.0); HEMOGLOBIN 9.4 g/dl (12.0-15.5); LYMPH # 1.7 10^3/uL (1.5-5.0); LYMPH % 37.2 % (24.0-44.0); MEAN CORPUSCULAR HEMOGLOBIN 33.5 pg (27.0-33.0); MEAN CORPUSCULAR HGB CONC 32.3 g/dl (32.0-36.5); MEAN CORPUSCULAR VOLUME 103.6 fl (80.0-96.0); MONO # 0.5 10^3/uL (0.0-0.8); MONO % 10.6 % (0.0-5.0); NEUTROPHILS % 43.4 % (36.0-66.0); PLATELET COUNT, AUTOMATED 217 10^3/uL (150-450); RED BLOOD COUNT 2.81 10^6/uL (4.00-5.40); WHITE BLOOD COUNT 4.6 10^3/uL (4.0-10.0)
[2020-01-25 07:10] LABS: ALBUMIN 3.3 GM/DL (3.2-5.2); ALT/SGPT 23 U/L (12-78); BILIRUBIN,TOTAL 0.5 MG/DL (0.2-1.0); BLOOD UREA NITROGEN 5 MG/DL (7-18); CALCIUM LEVEL 8.7 MG/DL (8.5-10.1); CARBON DIOXIDE LEVEL 37 MEQ/L (21-32); CHLORIDE LEVEL 100 MEQ/L (98-107); CREATININE FOR GFR 0.71 MG/DL (0.55-1.30); GLOMERULAR FILTRATION RATE > 60.0 (>51); GLUCOSE, FASTING 112 MG/DL (70-100); MAGNESIUM LEVEL 1.7 MG/DL (1.8-2.4); POTASSIUM SERUM 3.3 MEQ/L (3.5-5.1); SODIUM LEVEL 141 MEQ/L (136-145); TOTAL PROTEIN 6.8 GM/DL (6.4-8.2)
[2020-01-25] MEDS: DICLOFENAC EPOLAMINE 1.3 % PATCH TOP SCH ×2 (09:03→21:57)
[2020-01-25] MEDS: HumaLOG INSULIN (NovoLOG) PER UNIT SC SCH ×4 (09:03→21:00)
[2020-01-25] MEDS: DULoxetine 30 MG CAP (CYMBALTA) PO SCH ×2 (09:04→21:55)
[2020-01-25] MEDS: CYANOCOBALAMIN 500 MCG TAB PO SCH (09:04)
[2020-01-25] MEDS: LORATADINE 10 MG TAB PO SCH (09:04)
[2020-01-25] MEDS: POTASSIUM CHLORIDE 10 MEQ SR TABLET PO SCH ×2 (09:04→21:56)
[2020-01-25] MEDS: VITAMIN D (CHOLECALCIFEROL) 400 INTERNATIONAL UNITS TAB PO SCH ×2 (09:04→21:56)
[2020-01-25] MEDS: busPIRone 10 MG TAB PO SCH ×2 (09:04→21:56)
[2020-01-25] MEDS: ASPIRIN 81 MG CHEW TABLET PO SCH (09:05)
[2020-01-25] MEDS: FLUTICASONE PROP 0.05% NASAL SPRAY 16 GM (FLONASE) NARES SCH (09:05)
[2020-01-25] MEDS: OMEPRAZOLE 20 MG CAP PO SCH ×2 (09:05→21:56)
[2020-01-25] MEDS: SPIRONOLACTONE 50 MG TAB PO SCH (09:05)
[2020-01-25] MEDS: methocarbamoL 750 MG TAB PO SCH ×3 (09:05→21:56)
[2020-01-25] MEDS: GABAPENTIN 300 MG CAP PO SCH ×3 (09:05→21:57)
[2020-01-25] MEDS: CALCIUM CARBONATE 500 MG CHEW U/D PO SCH ×2 (09:05→21:55)
[2020-01-25] MEDS ORDERED: POTASSIUM CHLORIDE 10 MEQ SR TABLET PO ONE (11:00)
--- NOTE | 2020-01-25 11:24 | IPNPDOC ---
Subjective Date Seen The patient was seen on 01/25/20. Subjective Chief Complaint/HPI Pt this morning without new concerns. She does c/o abd pain, fullness. She is going for paracentesis this morning. General: Denies: Fatigue Constitutional: Denies: Chills, Fever ENT: Denies: Head Aches Pulmonary: Denies: Dyspnea, Cough Cardiovascular: Denies: Chest Pain, Palpitations Gastrointestinal: Denies: Nausea, Vomiting, Diarrhea Neurological: Reports: Weakness Psych: Reports: Mood Normal Objective Physical Examination General Exam: Positive: Alert, No Acute Distress ENT Exam: Positive: Mucous membr. moist/pink Neck Exam: Positive: Supple Chest Exam: Positive: Clear to auscultation, Diminished Heart Exam: Positive: Rate Normal, Normal S1, Normal S2 Abdomen Exam: Positive: Normal bowel sounds, Soft, Tenderness Extremity Exam: Positive: Edema (trace BLE) Neuro Exam: Positive: Normal Speech Psych Exam: Positive: Mood NL Assessment /Plan Problems (1) Opioid use disorder Status: Chronic Problem Text: c chronic multi-site pain 01/24 restarted HD Butrans 15, Flector patch B knees, ketorlac IV prn (restart jose 200 QD at dc) (2) Chronic diastolic (congestive) heart failure Status: Chronic Response to Treatment: Controlled Discussed With: Patient Problem Specific Plan: Consult Specialist, Monitor Clinically Problem Text: Euvolemic at this point (3) Physical deconditioning Status: Chronic Problem Text: 01/23 NS to dc back to [facility] (4) Ascites of liver Status: Acute Problem Text: since 01/23 admit NN 8L 01/23 sp diagnostic/therapeutic para 01/22 CT CAP: There is a micronodular surface to the liver with an abnormal caudate to left lobe of the liver ratio. There is moderate ascites. The spleen is within normal limits. The pancreas is atrophic. There is bilateral renal cortical thinning. The adrenal glands are unremarkable. The abdominal aorta and para-aortic regions are within normal limits. Small para-aortic lymph nodes are present. The bowel loops are within normal limits. Shotty lymph nodes are seen scattered throughout the small bowel mesentery. CT pelvis: There is free fluid in the pelvis. The pelvic bowel loops are unremarkable. There is no evidence of a pelvic mass or adenopathy. Bone window technique throughout the examination shows chronic spinal degenerative changes and previous spinal surgery. This is unchanged. There is a left hip internal fixation pin, status quo. There is diffuse increased density throughout the abdominal subcutanea. IMPRESSION: 1. Evidence of cirrhosis of the liver. 2. Ascites. 3. Chronic pancreatic and renal changes, as described above. 4. Evidence of anasarca. Correlate clinically. (5) NAFLD (nonalcoholic fatty liver disease) Status: Chronic Response to Treatment: Stable Problem Text: This is likely the source of her ascites. She is on Xifaxan to help control development of hepatic encephalopathy. (6) JETHRO (obstructive sleep apnea) Status: Chronic Problem Text: Nursing reports she was hard to wake this morning. They were concerned she was becoming encephalopathic. An ammonia level was normal. I suspe ct this episode had to do with uncontrolled sleep apnea. (7) Hypomagnesemia Status: Acute Problem Specific Plan: Repeat Labs Problem Text: 01/24 Mag 1.7, will give addl mag run today. 01/23 Her magnesium was low today. Supplemented her with 2 g of IV magnesium and will recheck later today. I suspect that this electrolyte abnormality relates to fluid shifts related to the ascites. (8) Diabetes mellitus Status: Chronic Response to Treatment: Stable Problem Text: Continue current regimen including insulin sliding scale. (9) Morbid obesity Status: Chronic Problem Text: She has multiple medical comorbidities associated with this. This will complicate much of the rest of her medical care. Plan/VTE VTE Prophylaxis Ordered?: Yes (subcutaneous heparin) VS, I&O, 24H, Fishbone Vital Signs/I&O Vital Signs Date Time Temp Pulse Resp B/P (MAP) Pulse Ox O2 Delivery O2 Flow Rate FiO2 01/25/20 06:24 97.4 74 18 125/66 (85) 97 Room Air I&O- Last 24 Hours up to 6 AM 01/25/20 06:00 Intake Total 1444.0 ml Output Total 3800 ml Balance -2356.0 ml Laboratory Data 24H LABS Laboratory Tests 2 01/24/20 11:56: Bedside Glucose (Misc Panel) 128H 01/24/20 16:56: Bedside Glucose (Misc Panel) 124H 01/24/20 18:00: Magnesium Level 1.7L 01/24/20 20:31: Bedside Glucose (Misc Panel) 190H 01/25/20 06:03: Immature Granulocyte % (Auto) 0.4, Neutrophils (%) (Auto) 43.4, Lymphocytes (%) (Auto) 37.2, Monocytes (%) (Auto) 10.6H, Eosinophils (%) (Auto) 8.0H, Basophils (%) (Auto) 0.4, Neutrophils # (Auto) 2.0, Lymphocytes # (Auto) 1.7, Monocytes # (Auto) 0.5, Eosinophils # (Auto) 0.4, Basophils # (Auto) 0.0, Nucleated Red Blood Cells % (auto) 0.0, Anion Gap 4L, Glomerular Filtration Rate > 60.0, Calcium Level 8.7, Magnesium Level 1.7L, Total Bilirubin 0.5, Aspartate Amino Transf (AST/SGOT) 44H, Alanine Aminotransferase (ALT/SGPT) 23, Alkaline Phosphatase 144H, Total Protein 6.8, Albumin 3.3, Albumin/Globulin Ratio 0.94L CBC/BMP Laboratory Tests 01/24/20 18:00 01/25/20 06:03 Microbiology Microbiology 01/23/20 Blood Culture - Preliminary, Resulted No growth after 24 hours . All specim... 01/23/20 Blood Culture - Preliminary, Resulted No growth after 24 hours . All specim... LION CARTY PA-C Jan 25, 2020 11:24 Andrew Beck M.D. Jan 25, 2020 17:26
[2020-01-25 14:00] VITALS: BP 126/69
[2020-01-25] MEDS ORDERED: KETOROLAC 30 MG/ML VIAL (J1885) IV ONE (16:00)
--- NOTE | 2020-01-25 18:14 | REP ---
Ultrasound-guided paracentesis The procedure was performed under the direct supervision of Dr. Finch. The risks and benefits of the procedure were explained to the patient and informed consent was obtained. The largest pocket of fluid was localized in the right flank using ultrasound guidance. The skin was prepped and draped in a sterile fashion. 1% lidocaine was used as a local anesthetic. An 8-Syriac multi side-hole catheter was inserted using trocar technique. 25 ml of yellow fluid was withdrawn and sent to the lab for analysis. The patient tolerated the procedure well and there were no immediate complications. After the appropriate amount of monitored convalescence the patient was discharged from the department. Electronically Signed by JANESSA Pierre 01/25/2020 05:39 P Electronically Signed by Jose Enrique Finch MD 01/25/2020 06:05 P
[2020-01-25] MEDS: ATORVASTATIN 20 MG TAB PO SCH (21:55)
[2020-01-25 22:00] VITALS: BP 122/67
[2020-01-26] MEDS: FUROSEMIDE 40 MG/4 ML VIAL (J1940) IV SCH ×4 (00:54→17:50)
[2020-01-26] MEDS: LACTULOSE 20 GM/30 ML SYRUP UD PO SCH ×4 (05:01→21:07)
[2020-01-26] MEDS: HEPARIN SOD (PORCINE) 5000 UNITS/ML VIAL (J1644 PER 1000UNITS) SC SCH ×3 (05:01→21:09)
[2020-01-26] MEDS: PERCOCET 5MG/325MG TAB PO PRN (05:04)
[2020-01-26 06:00] VITALS: BP 121/68
[2020-01-26 06:09] LABS: BASO % 0.4 % (0.0-1.0); EOS # 0.4 10^3/uL (0.0-0.5); EOS % 6.7 % (0.0-3.0); HEMATOCRIT 27.9 % (36.0-47.0); HEMOGLOBIN 9.1 g/dl (12.0-15.5); LYMPH # 2.1 10^3/uL (1.5-5.0); LYMPH % 37.9 % (24.0-44.0); MEAN CORPUSCULAR HEMOGLOBIN 33.8 pg (27.0-33.0); MEAN CORPUSCULAR HGB CONC 32.6 g/dl (32.0-36.5); MEAN CORPUSCULAR VOLUME 103.7 fl (80.0-96.0); MONO # 0.6 10^3/uL (0.0-0.8); MONO % 11.6 % (0.0-5.0); NEUTROPHILS # 2.4 10^3/uL (1.5-8.5); PLATELET COUNT, AUTOMATED 196 10^3/uL (150-450); RED BLOOD COUNT 2.69 10^6/uL (4.00-5.40); WHITE BLOOD COUNT 5.5 10^3/uL (4.0-10.0)
[2020-01-26 06:28] LABS: ALT/SGPT 23 U/L (12-78); BILIRUBIN,TOTAL 0.5 MG/DL (0.2-1.0); BLOOD UREA NITROGEN 6 MG/DL (7-18); CALCIUM LEVEL 8.3 MG/DL (8.5-10.1); CARBON DIOXIDE LEVEL 36 MEQ/L (21-32); CHLORIDE LEVEL 98 MEQ/L (98-107); CREATININE FOR GFR 0.81 MG/DL (0.55-1.30); GLOMERULAR FILTRATION RATE > 60.0 (>51); GLUCOSE, FASTING 130 MG/DL (70-100); MAGNESIUM LEVEL 1.7 MG/DL (1.8-2.4); POTASSIUM SERUM 3.4 MEQ/L (3.5-5.1); SODIUM LEVEL 138 MEQ/L (136-145); TOTAL PROTEIN 6.1 GM/DL (6.4-8.2)
[2020-01-26] MEDS: HumaLOG INSULIN (NovoLOG) PER UNIT SC SCH ×4 (08:45→21:00)
[2020-01-26] MEDS: busPIRone 10 MG TAB PO SCH ×2 (08:46→21:09)
[2020-01-26] MEDS: VITAMIN D (CHOLECALCIFEROL) 400 INTERNATIONAL UNITS TAB PO SCH ×2 (08:46→21:09)
[2020-01-26] MEDS: CALCIUM CARBONATE 500 MG CHEW U/D PO SCH ×2 (08:46→21:07)
[2020-01-26] MEDS: POTASSIUM CHLORIDE 10 MEQ SR TABLET PO SCH ×2 (08:46→21:07)
[2020-01-26] MEDS: DULoxetine 30 MG CAP (CYMBALTA) PO SCH ×2 (08:47→21:09)
[2020-01-26] MEDS: LORATADINE 10 MG TAB PO SCH (08:47)
[2020-01-26] MEDS: GABAPENTIN 300 MG CAP PO SCH ×3 (08:47→21:08)
[2020-01-26] MEDS: OMEPRAZOLE 20 MG CAP PO SCH ×2 (08:48→21:07)
[2020-01-26] MEDS: DICLOFENAC EPOLAMINE 1.3 % PATCH TOP SCH ×2 (08:48→21:10)
[2020-01-26] MEDS: CYANOCOBALAMIN 500 MCG TAB PO SCH (08:48)
[2020-01-26] MEDS: methocarbamoL 750 MG TAB PO SCH ×3 (08:48→21:09)
[2020-01-26] MEDS: SPIRONOLACTONE 50 MG TAB PO SCH ×2 (08:48→21:08)
[2020-01-26] MEDS: ASPIRIN 81 MG CHEW TABLET PO SCH (08:48)
[2020-01-26] MEDS: FLUTICASONE PROP 0.05% NASAL SPRAY 16 GM (FLONASE) NARES SCH (08:50)
[2020-01-26] MEDS ORDERED: ENTER DRUG NAME HERE (PATIENT'S OWN MED) OU SCH (09:00)
--- NOTE | 2020-01-26 12:33 | IPNPDOC ---
Subjective Date Seen The patient was seen on 01/26/20. Subjective Chief Complaint/HPI chronic paralumbar pain, baseline MS Constitutional: Denies: Chills ENT: Denies: Head Aches Pulmonary: Denies: Dyspnea, Cough Cardiovascular: Denies: Chest Pain, Palpitations Gastrointestinal: Denies: Nausea, Vomiting Objective Physical Examination General Exam: Positive: Alert, No Acute Distress Eye Exam: Positive: Conjunctiva & lids normal; Negative: Sclera icteric ENT Exam: Positive: Mucous membr. moist/pink Neck Exam: Positive: Supple Chest Exam: Positive: Clear to auscultation, Diminished Heart Exam: Positive: Rate Normal, Normal S1, Normal S2 Abdomen Exam: Positive: Normal bowel sounds, Soft, Tenderness Extremity Exam: Positive: Edema (trace BLE) Neuro Exam: Positive: Normal Speech Psych Exam: Positive: Mood NL Assessment /Plan Problems (1) Opioid use disorder Status: Chronic Problem Text: c chronic multi-site pain contingency: change to [place] 75 BID, Butrans to 20 MDD plan dc back to [facility] in AM 01/25 restarted HD Butrans 15, metho 750 TID, claus 900 TIID, dulox 60 BID, Flec tor patch B knees, ketorolac IV prn (restart jose 200 QD at dc) (2) Chronic diastolic (congestive) heart failure Status: Chronic Response to Treatment: Controlled Discussed With: Patient Problem Specific Plan: Consult Specialist, Monitor Clinically Problem Text: Euvolemic at this point (3) Physical deconditioning Status: Chronic Problem Text: 01/24 safe to dc back to [facility] (4) Ascites of liver Status: Acute Problem Text: since 01/23 admit net negative 8L not TIPS candidate given recurrent HE 01/25 continue fur 40 IV q4H, increased tera 100 QD to BID 01/23 sp diagnostic/therapeutic paracentesis-only 25 cc obtainable 01/22 CT CAP: There is a micronodular surface to the liver with an abnormal caudate to left lobe of the liver ratio. There is moderate ascites. The spleen is within normal limits. The pancreas is atrophic. There is bilateral renal cortical thinning. The adrenal glands are unremarkable. The abdominal aorta and para-aortic regions are within normal limits. Small para-aortic lymph nodes are present. The bowel loops are within normal limits. Shotty lymph nodes are seen scattered through out the small bowel mesentery. CT pelvis: There is free fluid in the pelvis. The pelvic bowel loops are unremarkable. There is no evidence of a pelvic mass or adenopathy. Bone window technique throughout the examination shows chronic spinal degenerative changes and previous spinal surgery. This is unchanged. There is a left hip internal fixation pin, status quo. There is diffuse increased density throughout the abdominal subcutanea. IMPRESSION: 1. Evidence of cirrhosis of the liver. 2. Ascites. 3. Chronic pancreatic and renal changes, as described above. 4. Evidence of anasarca. Correlate clinically. (5) NAFLD (nonalcoholic fatty liver disease) Status: Chronic Response to Treatment: Stable Problem Text: This is likely the source of her ascites. She is on Xifaxan to help control development of hepatic encephalopathy. (6) JETHRO (obstructive sleep apnea) Status: Chronic Problem Text: Nursing reports she was hard to wake this morning. They were concerned she was becoming encephalopathic. An ammonia level was normal. I suspect this episode had to do with uncontrolled sleep apnea. (7) Hypomagnesemia Status: Acute Problem Specific Plan: Repeat Labs Problem Text: 2 diuresis 01/25 1.7 + MgCl BID-will need chronically (8) Diabetes mellitus Status: Chronic Response to Treatment: Stable Problem Text: Continue current regimen including insulin sliding scale. (9) Hepatic encephalopathy Status: Acute Problem Text: continue HD rifax 400 BID, lact 45 q6H Plan/VTE VTE Prophylaxis Ordered?: Yes (subcutaneous heparin) VS, I&O, 24H[facility] Vital Signs/I&O Vital Signs Date Time Temp Pulse Resp B/P (MAP) Pulse Ox O2 Delivery O2 Flow Rate FiO2 01/26/20 06:00 99.1 80 20 121/68 (85) 95 Room Air I&O- Last 24 Hours up to 6 AM 01/26/20 06:00 Intake Total 2300 ml Output Total 4475 ml Balance -2175 ml Laboratory Data 24H LABS Laboratory Tests 2 01/25/20 16:36: Bedside Glucose (Misc Panel) 228H 01/25/20 21:20: Bedside Glucose (Misc Panel) 124H 01/26/20 05:37: Immature Granulocyte % (Auto) 0.4, Neutrophils (%) (Auto) 43.0, Lymphocytes (%) (Auto) 37.9, Monocytes (%) (Auto) 11.6H, Eosinophils (%) (Auto) 6.7H, Basophils (%) (Auto) 0.4, Neutrophils # (Auto) 2.4, Lymphocytes # (Auto) 2.1, Monocytes # (Auto) 0.6, Eosinophils # (Auto) 0.4, Basophils # (Auto) 0.0, Nucleated Red Blood Cells % (auto) 0.0, Anion Gap 4L, Glomerular Filtration Rate > 60.0, Calcium Level 8.3L, Magnesium Level 1.7L, Total Bilirubin 0.5, Aspartate Amino Transf (AST/SGOT) 44H, Alanine Aminotransferase (ALT/SGPT) 23, Alkaline Phosphatase 144H, Total Protein 6.1L, Albumin 3.0L, Albumin/Globulin Ratio 0.97L 01/26/20 11:18: Bedside Glucose (Misc Panel) 140H CBC/BMP Laboratory Tests 01/26/20 05:37 Microbiology Microbiology 01/23/20 Blood Culture - Preliminary, Resulted No Growth after 48 hours. All Specime... 01/23/20 Blood Culture - Preliminary, Resulted No Growth after 48 hours. All Specime... Andrew Beck M.D. Jan 26, 2020 12:33
[2020-01-26] MEDS: MAGNESIUM CHLORIDE 64 MG TABCR (SLO MAG) PO SCH ×2 (13:38→21:09)
[2020-01-26 14:00] VITALS: BP 130/66
[2020-01-26] MEDS: ATORVASTATIN 20 MG TAB PO SCH (21:08)
[2020-01-26 22:00] VITALS: BP 118/55
[2020-01-27] MEDS: FUROSEMIDE 40 MG/4 ML VIAL (J1940) IV SCH ×2 (00:33→05:22)
[2020-01-27] MEDS: HEPARIN SOD (PORCINE) 5000 UNITS/ML VIAL (J1644 PER 1000UNITS) SC SCH (05:22)
[2020-01-27 06:00] VITALS: BP 127/68
[2020-01-27 06:50] LABS: HEMATOCRIT 31.1 % (36.0-47.0); HEMOGLOBIN 9.8 g/dl (12.0-15.5); MEAN CORPUSCULAR HGB CONC 31.5 g/dl (32.0-36.5); MEAN CORPUSCULAR VOLUME 104.7 fl (80.0-96.0); PLATELET COUNT, AUTOMATED 240 10^3/uL (150-450); RED BLOOD COUNT 2.97 10^6/uL (4.00-5.40); WHITE BLOOD COUNT 7.5 10^3/uL (4.0-10.0)
[2020-01-27 07:16] LABS: ATYPICAL LYMPH 2 % (0-5); EOSINOPHILS 5 % (0-3); LYMPHOCYTES 40 % (16-44); MONOCYTES 6 % (0-5); NEUTROPHILS 47 % (28-66)
[2020-01-27 07:17] LABS: ANISOCYTOSIS 1+; OVALOCYTES 2+; PLATELET ESTIMATE NORMAL (NORMAL)
[2020-01-27 07:28] LABS: ALBUMIN 3.5 GM/DL (3.2-5.2); ALT/SGPT 28 U/L (12-78); BILIRUBIN,TOTAL 1.1 MG/DL (0.2-1.0); BLOOD UREA NITROGEN 6 MG/DL (7-18); CALCIUM LEVEL 9.1 MG/DL (8.5-10.1); CARBON DIOXIDE LEVEL 37 MEQ/L (21-32); CHLORIDE LEVEL 95 MEQ/L (98-107); CREATININE FOR GFR 0.87 MG/DL (0.55-1.30); GLOMERULAR FILTRATION RATE > 60.0 (>51); GLUCOSE, FASTING 120 MG/DL (70-100); MAGNESIUM LEVEL 1.6 MG/DL (1.8-2.4); POTASSIUM SERUM 3.5 MEQ/L (3.5-5.1); SODIUM LEVEL 137 MEQ/L (136-145); TOTAL PROTEIN 6.8 GM/DL (6.4-8.2)
[2020-01-27] MEDS: LACTULOSE 20 GM/30 ML SYRUP UD PO SCH (09:44)
[2020-01-27] MEDS: HumaLOG INSULIN (NovoLOG) PER UNIT SC SCH (09:45)
[2020-01-27] MEDS: busPIRone 10 MG TAB PO SCH (09:46)
[2020-01-27] MEDS: DULoxetine 30 MG CAP (CYMBALTA) PO SCH (09:46)
[2020-01-27] MEDS: methocarbamoL 750 MG TAB PO SCH (09:46)
[2020-01-27] MEDS: GABAPENTIN 300 MG CAP PO SCH (09:46)
[2020-01-27] MEDS: ASPIRIN 81 MG CHEW TABLET PO SCH (09:46)
[2020-01-27] MEDS: OMEPRAZOLE 20 MG CAP PO SCH (09:46)
[2020-01-27] MEDS: POTASSIUM CHLORIDE 10 MEQ SR TABLET PO SCH (09:46)
[2020-01-27] MEDS: MAGNESIUM CHLORIDE 64 MG TABCR (SLO MAG) PO SCH (09:47)
[2020-01-27] MEDS: VITAMIN D (CHOLECALCIFEROL) 400 INTERNATIONAL UNITS TAB PO SCH (09:47)
[2020-01-27] MEDS: CALCIUM CARBONATE 500 MG CHEW U/D PO SCH (09:47)
[2020-01-27] MEDS: SPIRONOLACTONE 50 MG TAB PO SCH (09:47)
[2020-01-27] MEDS: FLUTICASONE PROP 0.05% NASAL SPRAY 16 GM (FLONASE) NARES SCH (09:47)
[2020-01-27] MEDS: LORATADINE 10 MG TAB PO SCH (09:47)
[2020-01-27] MEDS: CYANOCOBALAMIN 500 MCG TAB PO SCH (09:47)
[2020-01-27] MEDS ORDERED: ALDA50TA2 PO (11:21)
[2020-01-27] MEDS: DICLOFENAC EPOLAMINE 1.3 % PATCH TOP SCH (11:21)
--- NOTE | 2020-01-27 14:40 | DSES ---
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 SECONDARY DIAGNOSES: 1. Chronic diastolic congestive heart failure with preserved ejection fraction. 2. Chronic opiate use disorder. 3. Physical deconditioning. 4. Obstructive sleep apnea (JETHRO). 5. Type 2 diabetes. 6. History of hepatic encephalopathy. 7. Hypomagnesemia. HISTORY: The patient was admitted with increasing ascites. Details in history and physical from admission. HOSPITAL COURSE: Admitted to a medical bed. Underwent paracentesis on 01/25/2020. Only 25 mL of fluid was obtained. I do not see where it was tested nor cultured. She was diuresed. Her ascites improved. She was planned for discharge today. On examination, she looks comfortable. Blood pressure (BP) is 127/68, pulse of 84, respiratory rate 18. I have not examined her during this admission. She tells me her ascites level is good. Lungs are clear. Heart: Regular rate and rhythm. Abdomen: Soft. There is some palpable ascites. There is trace peripheral edema. LABORATORIES: Sodium 137, potassium 3.5, BUN 6, creatinine 0.8, glucose 120, bilirubin 1.1, magnesium 1.6. White count 7.5, hemoglobin 9.8, platelets 240. Blood sugars are below 200. Influenza A and B negative. Blood cultures negative. DISPOSITION: She is discharged to [facility]. Following with Dr. Beck in a week. Activity as tolerated. [id number] diet. 1500 mL per day fluid restriction. Her medications are unchanged from admission. Her medicines are aspirin 81 mg daily, atorvastatin 20 mg daily, Butrans patch 15 mcg/h weekly, BuSpar 30 mg twice a day, calcium carbonate 500 mg twice a day, Celebrex 200 mg daily, Keflex 500 mg nightly, vitamin D 400 units twice a day, B12 500 mcg daily, Voltaren Gel 4 grams four times a day to legs and spine, Trulicity 1.5 mg weekly, duloxetine 60 mg twice a day, Flonase two sprays daily, furosemide 20 mg daily, gabapentin 900 mg three times a day, lactulose 45 mL four times a day, lidocaine cream every 4 hours as needed to neck, back, and legs, loratadine 10 mg daily, metformin 1000 mg twice a day, methocarbamol 750 mg three times a day, omeprazole 40 mg twice a day, MiraLAX 17 grams daily as needed for constipation, potassium chloride 10 mEq twice a day, rifaximin 400 mg twice a day, rizatriptan 10 mg daily as needed for migraine. Furosemide dose was increased to 100 mg twice a day. At the time of this dictation, no pending laboratories.
== END 2020-01-27 12:50 | disposition home or self-care (01) | DRG 433 ==
LOC: M ED 10:15 → M ED INP 16:22 → M MSPAV 17:34
PROVIDERS: ADMIT Internal Medicine; ATTEND Family Medicine
DX: K74.60 Unspecified cirrhosis of liver (principal); R18.8 Other ascites; I50.32 Chronic diastolic (congestive) heart failure; K75.81 Nonalcoholic steatohepatitis (NASH); E11.9 Type 2 diabetes mellitus without complications; K72.90 Hepatic failure, unspecified without coma; E83.42 Hypomagnesemia; F11.90 Opioid use, unspecified, uncomplicated; G47.33 Obstructive sleep apnea (adult) (pediatric); Z79.82 Long term (current) use of aspirin; Z79.899 Other long term (current) drug therapy; E78.5 Hyperlipidemia, unspecified; Z87.891 Personal history of nicotine dependence; F12.90 Cannabis use, unspecified, uncomplicated; M54.2 Cervicalgia; M54.5 Low back pain; N31.9 Neuromuscular dysfunction of bladder, unspecified; Z91.040 Latex allergy status; Z88.8 Allergy status to other drugs, medicaments and biological substances; Z91.018 Allergy to other foods; E66.01 Morbid (severe) obesity due to excess calories

== ENCOUNTER → 2020-02-08 | Outpatient (REF) | payer MEDICARE, MEDICAID ==
[~2020-02-08] MED LIST changes: +ALDA50TA2 PO; +ANEC4CRE3 TOP; +BUTR1DIS TOP; +CYCL-707 PO; -CYCL10TA PO; +D-40TAB2 PO; +LORA-622 PO; +POTA10CA32 PO; +SPIR-10 PO; +VOLT1GEL15 TOP
[2020-02-08 14:23] LABS: BASO # 0.1 10^3/uL (0.0-0.2); BASO % 0.8 % (0.0-1.0); EOS # 0.5 10^3/uL (0.0-0.5); EOS % 7.4 % (0.0-3.0); HEMATOCRIT 34.8 % (36.0-47.0); HEMOGLOBIN 11.1 g/dl (12.0-15.5); LYMPH # 1.7 10^3/uL (1.5-5.0); LYMPH % 27.5 % (24.0-44.0); MEAN CORPUSCULAR HEMOGLOBIN 33.7 pg (27.0-33.0); MEAN CORPUSCULAR HGB CONC 31.9 g/dl (32.0-36.5); MEAN CORPUSCULAR VOLUME 105.8 fl (80.0-96.0); MONO # 0.7 10^3/uL (0.0-0.8); MONO % 10.3 % (0.0-5.0); NEUTROPHILS # 3.4 10^3/uL (1.5-8.5); NEUTROPHILS % 53.5 % (36.0-66.0); PLATELET COUNT, AUTOMATED 258 10^3/uL (150-450); RED BLOOD COUNT 3.29 10^6/uL (4.00-5.40); WHITE BLOOD COUNT 6.3 10^3/uL (4.0-10.0)
[2020-02-08 14:24] LABS: APPEARANCE, URINE HAZY (CLEAR); BACTERIA, URINE AUTO 2+ (NEGATIVE); BILIRUBIN, URINE AUTO NEGATIVE (NEGATIVE); BLOOD, URINE BLOOD NEGATIVE (NEGATIVE); COLOR, URINE YELLOW (YELLOW); GLUCOSE, URINE (UA) AUTO NEGATIVE (NEGATIVE); KETONE, URINE AUTO NEGATIVE (NEGATIVE); LEUKOCYTE ESTERASE, URINE AUTO NEGATIVE (NEGATIVE); MUCUS, URINE SMALL (NEGATIVE); NITRITE, URINE AUTO NEGATIVE (NEGATIVE); PROTEIN, URINE AUTO NEGATIVE (NEGATIVE); RBC, URINE AUTO 1 /HPF (0-3); SPECIFIC GRAVITY URINE AUTO 1.015 (1.002-1.035); SQUAMOUS EPITHELIAL CELL UR AU 6 /HPF (0-6); UROBILINOGEN, URINE AUTO 0.2 mg/dL (0.0-2.0); WBC, URINE AUTO 1 /HPF (0-3)
[2020-02-08 14:34] LABS: ALBUMIN 3.5 GM/DL (3.2-5.2); BILIRUBIN,TOTAL 0.9 MG/DL (0.2-1.0); CALCIUM LEVEL 9.4 MG/DL (8.5-10.1); CREATININE FOR GFR 1.04 MG/DL (0.55-1.30); GLOMERULAR FILTRATION RATE 57.9 (>51); MAGNESIUM LEVEL 1.7 MG/DL (1.8-2.4); POTASSIUM SERUM 4.6 MEQ/L (3.5-5.1); TOTAL PROTEIN 7.7 GM/DL (6.4-8.2)
== END ==
LOC: M SFHCPLAZ 12:40
PROVIDERS: ATTEND Family Medicine
DX: I50.32 Chronic diastolic (congestive) heart failure (principal); N39.0 Urinary tract infection, site not specified

== ENCOUNTER → 2020-03-01 | Outpatient (REF) | payer MEDICARE, MEDICAID ==
[2020-03-01 15:37] LABS: BASO # 0.1 10^3/uL (0.0-0.2); BASO % 0.6 % (0.0-1.0); EOS # 0.7 10^3/uL (0.0-0.5); EOS % 8.1 % (0.0-3.0); HEMATOCRIT 36.3 % (36.0-47.0); HEMOGLOBIN 11.9 g/dl (12.0-15.5); LYMPH # 2.5 10^3/uL (1.5-5.0); LYMPH % 31.5 % (24.0-44.0); MEAN CORPUSCULAR HEMOGLOBIN 34.3 pg (27.0-33.0); MEAN CORPUSCULAR HGB CONC 32.8 g/dl (32.0-36.5); MEAN CORPUSCULAR VOLUME 104.6 fl (80.0-96.0); MONO # 0.8 10^3/uL (0.0-0.8); MONO % 9.3 % (0.0-5.0); NEUTROPHILS # 4.1 10^3/uL (1.5-8.5); NEUTROPHILS % 50.3 % (36.0-66.0); PLATELET COUNT, AUTOMATED 217 10^3/uL (150-450); RED BLOOD COUNT 3.47 10^6/uL (4.00-5.40); WHITE BLOOD COUNT 8.1 10^3/uL (4.0-10.0)
[2020-03-01 16:03] LABS: ALBUMIN 3.5 GM/DL (3.2-5.2); CREATININE FOR GFR 1.13 MG/DL (0.55-1.30); GLOMERULAR FILTRATION RATE 52.6 (>51); MAGNESIUM LEVEL 1.9 MG/DL (1.8-2.4); PERCENT SATURATION 13.1 % (13.2-45.0); POTASSIUM SERUM 5.5 MEQ/L (3.5-5.1); TOTAL PROTEIN 7.8 GM/DL (6.4-8.2)
[2020-03-01 16:14] LABS: HEMOGLOBIN A1c 5.7 %
== END ==
LOC: M SFHCPLAZ 13:58
PROVIDERS: ATTEND Family Medicine
DX: E53.8 Deficiency of other specified B group vitamins (principal); K72.90 Hepatic failure, unspecified without coma; E11.3299 Type 2 diabetes mellitus wit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, unspecified eye; I50.32 Chronic diastolic (congestive) heart failure; Z79.899 Other long term (current) drug therapy

== ENCOUNTER 2020-03-09 07:36 | Observation (INO) | payer MEDICARE, MEDICAID ==
[2020-03-09 08:09] LABS: BASO % 0.6 % (0.0-1.0); EOS # 0.5 10^3/uL (0.0-0.5); EOS % 8.5 % (0.0-3.0); HEMATOCRIT 32.6 % (36.0-47.0); HEMOGLOBIN 10.8 g/dl (12.0-15.5); LYMPH # 1.9 10^3/uL (1.5-5.0); LYMPH % 29.5 % (24.0-44.0); MEAN CORPUSCULAR HGB CONC 33.1 g/dl (32.0-36.5); MEAN CORPUSCULAR VOLUME 102.5 fl (80.0-96.0); MONO # 0.7 10^3/uL (0.0-0.8); MONO % 11.5 % (0.0-5.0); NEUTROPHILS # 3.2 10^3/uL (1.5-8.5); NEUTROPHILS % 49.7 % (36.0-66.0); PLATELET COUNT, AUTOMATED 181 10^3/uL (150-450); RED BLOOD COUNT 3.18 10^6/uL (4.00-5.40); WHITE BLOOD COUNT 6.3 10^3/uL (4.0-10.0)
[2020-03-09] MEDS ORDERED: METF10004 PO (08:12)
[2020-03-09] MEDS ORDERED: METH1TAB40 PO (08:12)
[2020-03-09] MEDS ORDERED: SPIR100T3 PO (08:12)
[2020-03-09] MEDS ORDERED: DULO1CAP5 PO (08:12)
[2020-03-09 08:24] LABS: OSMOLALITY SERUM 286 MOSM/KG (275-295)
[2020-03-09 08:37] LABS: ALBUMIN 3.1 GM/DL (3.2-5.2); ALT/SGPT 38 U/L (12-78); BILIRUBIN,DIRECT 0.5 MG/DL (0.0-0.2); BILIRUBIN,TOTAL 0.9 MG/DL (0.2-1.0); BLOOD UREA NITROGEN 15 MG/DL (7-18); CALCIUM LEVEL 8.7 MG/DL (8.5-10.1); CARBON DIOXIDE LEVEL 26 MEQ/L (21-32); CHLORIDE LEVEL 102 MEQ/L (98-107); CK-MB VALUE MASS 4.1 NG/ML (<3.6); CPK CREATINE PHOSPHOKINASE 130 U/L (26-192); CREATININE FOR GFR 0.94 MG/DL (0.55-1.30); GLOMERULAR FILTRATION RATE > 60.0 (>51); GLUCOSE, FASTING 126 MG/DL (70-100); MB/CK RELATIVE INDEX 3.15 (< OR =4); POTASSIUM SERUM 4.3 MEQ/L (3.5-5.1); SODIUM LEVEL 136 MEQ/L (136-145); TOTAL PROTEIN 7.4 GM/DL (6.4-8.2); TROPONIN I < 0.02 NG/ML (< 0.10)
--- NOTE | 2020-03-09 08:50 | REP ---
REASON FOR EXAM: Altered mental status. COMPARISON: 12/07/2019 TECHNIQUE: 4.5 mm contiguous transaxial sections were obtained from the skull base to the cerebral convexities with thin cuts through the posterior fossa without the administration of intravenous contrast. FINDINGS: The ventricles and sulci are consistent with the patient's age. There are no extra-axial fluid collections. There is no mass effect. The deep cerebral white matter is consistent with the patient's age. The orbital and petrous structures, cerebellopontine angles, and posterior fossa are unremarkable. The sella turcica, cavernous, and paracavernous structures are essentially unremarkable. The visualized portions of the paranasal sinuses and mastoid air cells are clear. Images of the skull base show no gross abnormality. IMPRESSION: Essentially unremarkable CT examination of the brain. There has been no change from the prior exam. Electronically Signed by Joaquin Cespedes DO 03/09/2020 09:01 A
--- NOTE | 2020-03-09 08:55 | REP ---
REASON FOR EXAM: Altered mental status. COMPARISON: 01/23/2020 The technique utilized in obtaining the radiograph has magnified the cardiac silhouette and accentuated the interstitial markings. The subtle right basilar opacities seen on the prior exam have not changed significantly when the technical differences between the examinations are taken into consideration. There is minimal right CP angle blunting. The heart is not enlarged and the lung thorne are otherwise clear. The osseous structures are stable and intact. IMPRESSION: Very subtle but persistent right basilar opacities. Electronically Signed by Joaquin Cespedes DO 03/09/2020 09:01 A
[2020-03-09] MEDS ORDERED: NS 1,000 ML IV ONE ×2 (09:45→12:00)
[2020-03-09] MEDS ORDERED: oxyCODONE 5MG TAB PO ONE (13:00)
[2020-03-09] MEDS ORDERED: MIRALAX *UNIT DOSE* 17GM PACKET PO PRN (14:15)
[2020-03-09] MEDS ORDERED: DEXTROSE 50% 50 ML SYRINGE IV PRN (14:15)
[2020-03-09] MEDS ORDERED: GLUCOSE 4GM CHEW TABLET PO PRN (14:15)
[2020-03-09] MEDS ORDERED: RIZATRIPTAN BENZOATE 10 MG TAB PO PRN (14:15)
[2020-03-09] MEDS ORDERED: GLUCAGON INJ 1MG VIAL SC PRN (14:15)
[2020-03-09] MEDS ORDERED: DIAPER RELIEF PASTE (DESITIN) 60GM TOP PRN (14:30)
--- NOTE | 2020-03-09 15:10 | HPEPDOC ---
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 Patient lives at the [facility] and reports that she takes her lactulose and last BM was a small BM this morning and her no knowledge that she is on rifaximin. She otherwise denies any abdominal pain, nausea, emesis, fever, chills, bleeding or worsening abdominal distention. In the ED, work up was notable for lactate of 4.6, ammonia of 65, UA with 1+ bacteria, WBC 6.3, Hgb 10.8, platelets 181, na 136, K 4.3, Cr 0.92 and appeared dry on examination. She was given oxycodone 5mg. 2L NS and had a taylor catheter placed. She is now being admitted to medicine for hepatic encephalopathy. 10 point review of system is negative except for above PAST MEDICAL HISTORY: 1. 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 Diabetes mellitus 3. Hyperlipidemia. 4. Chronic back/neck pain 5. Morbid obesity 6. Remote history of alcohol use disorder and opioid dependence PAST SURGICAL HISTORY: 1. Appendectomy. 2. Cholecystectomy. 3. Multiple back surgeries. 4. Hip replacement 5. Neftali-en-Y gastrojejunostomy SOCIAL HISTORY: Previous smoker, smoked 1 pack per day for over 20 years. Previous alcohol use disorder, quit in 1997 FAMILY HISTORY: Father had heart disease ALLERGIES: Please see below. HOME MEDICATIONS: Please see below. PHYSICAL EXAMINATION: VITAL SIGNS: Please see below. GENERAL: Morbidly obese, NAD, conversant HEENT: Normocephalic, atraumatic, moist mucous membranes, PERRLA, EOMI, anicteric NECK: Supple CARDIOVASCULAR EXAMINATION: S1, S2, no murmurs RESPIRATORY EXAMINATION: CTAB, diminished bases posteriorly, no wheezing, crackles or rhonchi ABDOMINAL EXAMINATION: Normoactive bowel sounds, soft, obese, NTND EXTREMITIES: No LE edema, WWP, L 5th digit with mild erythema with absent nail that she reports to be from recent trauma, no drainage, no streaking erythema SKIN: No rashes, L digit with absent nail that she reports to be from recent trauma, no drainage, no streaking erythema NEUROLOGICAL EXAMINATION: Alert and oriented 3, no focal deficits noted PSYCHIATRIC EXAMINATION: Calm and cooperative, AOx3 though she does intermittently acknowledge word finding difficult LABORATORY DATA: See below. IMAGING: CT A/P pending MICROBIOLOGY: Please see below. ASSESSMENT: 59-year-old W with CHRISTIANSEN cirrhosis previously decompensated by ascites and hepatic encephalopathy, diabetes mellitus and chronic pain on psychoactive pain medications who presents with progressive confusion c/f hepatic encephalopathy with clinical evidence of dehydration without other focal complaints. PLAN: 1. Hepatic encephalopathy 2/2 CHRISTIANSEN cirrhosis: Most likely 2/2 dehydration vs. other psychoactive pain meds while dehydrated vs. unlikely infection vs. even more unlikely thrombosis. -ammonia is 65 -hold gabapentin -hold robaxin -restart home lactulose QID and BID rifamixin -Goal at least 4 BMs Q 24H -pending CT A/P to r/o thombi and to assess degree of ascites -s/p 2L NS, let her drink to thirst at this time and monitor 2. CHRISTIANSEN cirrhosis: -Also with a hsitory of remote severe alcohol use disorder -continue home lasix 20mg /spironolactone 100 mg per day -Last EGD/colo was in late 2018, no history of GIB and no evidence of varices per 10/[address] Judge -follow up CT A?P 3. Neurogenic bladder: -Taylor catheter, as patient has a history of neurogenic bladder and requires intermittent catheterization at baseline. Continue home regimen 4. Diabetes mellitus. Sliding scale insulin with meals and at bedtime -hold home trulicity 5. Chronic neck/back pain. Secondary to trauma, history of multiple surgeries, continue home celecoxib/buprenorphine and hold claus 900 TID and robaxin in the setting of AMS -will add PRN Percocet Q6H PRN for moderate to severe pain -continue home cymbalta 6. Hyperlipidemia Continue home statin 7. Lactic acidosis: Likely 2/2 dehydration, will recheck after fluid resuscitation -recheck -No leukocytosis, pending CT A/P, pending BCx and UCx -Hold on antibiotics at this time outside of her suppressive keflex 8. Skin issues: -Desitin for buttocks -Nystatin cream BID for abdominal folds with intertrigo 9. GERD: -continue home PPI 10. Depression -continue home cymbalta and buspirone DVT prophylaxis: Heparin subcutaneous GI prophylaxis: Home PPI Vital Signs Vital Signs Date Time Temp Pulse Resp B/P (MAP) Pulse Ox O2 Delivery O2 Flow Rate FiO2 03/09/20 13:24 19 03/09/20 12:53 86 100 03/09/20 12:45 116/58 (77) 03/09/20 07:46 97.9 Laboratory Data Labs 24H Laboratory Tests 2 03/09/20 07:53: Lactic Acid Level 4.6*H 03/09/20 07:54: Immature Granulocyte % (Auto) 0.2, Neutrophils (%) (Auto) 49.7, Lymphocytes (%) (Auto) 29.5, Monocytes (%) (Auto) 11.5H, Eosinophils (%) (Auto) 8.5H, Basophils (%) (Auto) 0.6, Neutrophils # (Auto) 3.2, Lymphocytes # (Auto) 1.9, Monocytes # (Auto) 0.7, Eosinophils # (Auto) 0.5, Basophils # (Auto) 0.0, Nucleated Red Blood Cells % (auto) 0.0, Anion Gap 8, Glomerular Filtration Rate > 60.0, Osmolality 286, Calcium Level 8.7, Total Bilirubin 0.9, Direct Bilirubin 0.5H, Aspartate Amino Transf (AST/SGOT) 52H, Alanine Aminotransferase (ALT/SGPT) 38, Alkaline Phosphatase 125H, Ammonia 65H, Total Creatine Kinase 130, Creatine Kinase MB 4.1H, Creatine Kinase MB Relative Index 3.15, Troponin I < 0.02, Total Protein 7.4, Albumin 3.1L, Albumin/Globulin Ratio 0.72L, Thyroid Stimulating Hormone (TSH) 3.160 03/09/20 10:06: Urine Color STRAW, Urine Appearance CLEAR, Urine pH 5.0, Urine Specific [place] 1.005, Urine Protein NEGATIVE, Urine Glucose (UA) NEGATIVE, Urine Ketones NEGATIVE, Urine Blood NEGATIVE, Urine Nitrite NEGATIVE, Urine Bilirubin NEGATIVE, Urine Urobilinogen 0.2, Urine Leukocyte Esterase NEGATIVE, Urine WBC (Auto) 1, Urine RBC (Auto) 0, Urine Hyaline Casts (Auto) 5, Urine Bacteria (Auto) 1+H, Urine Squamous Epithelial Cells 0, Urine Sperm (Auto) 03/09/20 12:35: Lactic Acid Followup at 4 Hours 4.9*H CBC/BMP Laboratory Tests 03/09/20 07:54 Microbiology Microbiology 03/09/20 Blood Culture, Received Pending 03/09/20 Blood Culture, Received Pending Home Medications Scheduled Aspirin (Aspirin) 81 Mg Tab.chew, 81 MG PO QAM Atorvastatin Calcium (Atorvastatin Calcium) 20 Mg Tablet, 20 MG PO QHS Buprenorphine (Butrans) 15 Mcg/Hr Patch.tdwk, 15 MCG TOP QWEEK APPLY WEDNESDAYS 1400, ALTERNATES SHOULDERS Buspirone HCl (Buspirone HCl) 30 Mg Tablet, 30 MG PO BID Calcium Carbonate (Antacid) 200 Mg Tab.chew, 500 MG PO BID Celecoxib (Celebrex) 200 Mg Capsule, 200 MG PO QAM Cephalexin (Cephalexin) 500 Mg Capsule, 500 MG PO QHS Cholecalciferol (Vitamin D3) (Vitamin D-400) 10 Mcg Tablet, 400 UNIT PO BID Cyanocobalamin (Vitamin B-12) (Vitamin B-12) 500 Mcg Tablet, 500 MCG PO QAM Dulaglutide (Trulicity) 1.5 Mg/0.5 Ml Pen.injctr, 1.5 MG SQ QWEEK SUNDAYS AT 1800 Duloxetine Hcl (Duloxetine HCl) 60 Mg Capsule.dr, 60 MG PO DAILY Duloxetine Hcl (Duloxetine HCl) 30 Mg Capsule.dr, 30 MG PO QHS Fluticasone Propionate (Flonase Allergy Relief) 9.9 Ml [place].susp, 2 SPRAY NARES QHS Furosemide (Furosemide) 20 Mg Tab, 20 MG PO DAILY Gabapentin (Gabapentin) 300 Mg Capsule, 900 MG PO TID Lactulose (Lactulose) 10 Gm/15 Ml Solution, 30 ML PO QID Loratadine (Loratadine) 10 Mg Tablet, 10 MG PO DAILY Metformin HCl (Metformin HCl) 1,000 Mg Tablet, 1,000 MG PO BID Methocarbamol (Methocarbamol) 500 Mg Tablet, 500 MG PO TID Omeprazole (Omeprazole) 40 Mg Cap, 40 MG PO BID Rifaximin (Xifaxan) 200 Mg Tablet, 400 MG PO BID Spironolactone (Spironolactone) 100 Mg Tablet, 100 MG PO BID Scheduled PRN Lidocaine (Anecream) 4% Cream..g., 1 APLCT TOP Q4H PRN for PAIN APPLY TO BACK, NECK AND LEGS Polyethylene Glycol 3350 (Miralax) 119 Gm Powder, 17 GM PO DAILY PRN for CONSTIPATION dilute in 8 ounces of water or juice Rizatriptan Benzoate (Rizatriptan) 10 Mg Tab, 10 MG PO DAILY PRN for MIGRAINE Allergies Coded Allergies: ciprofloxacin (Verified Allergy, Intermediate, HIVES, CHILLS, AND FELT LIGHT HEADED, 10/28/19) fluconazole (Verified Allergy, Intermediate, HIVES, 10/28/19) latex (Verified Allergy, Intermediate, HIVES AND RASH ON HANDS, 10/28/19) strawberry (Verified Allergy, Unknown, 10/28/19) A-FIB/CHADSVASC A-FIB History Current/History of A-Fib/PAF?: No Current PO Anticoag Therapy: No Age/Risk Factor Scoring CHADSVASC: CHADSVASC Response (Comments) Value Age Risk Factor Age < 65 years old 0 Gender Risk Factor Female 1 Hx of CHF No 0 Hx of HTN Yes 1 Hx of Stroke/TIA/or VTE No 0 Hx of Diabetes Yes 1 Hx of Vascular Disease No 0 Total 3 Treatment Treatment ordered: NONE Reason Anticoagulant not given: Not indicated/[id number] FLORENTINO TAMEZ MD Mar 09, 2020 15:10
[2020-03-09] MEDS: LACTULOSE 20 GM/30 ML SYRUP UD PO SCH ×2 (15:16→21:12)
[2020-03-09 15:30] VITALS: BP 111/63
--- NOTE | 2020-03-09 15:30 | REP ---
CT ABDOMEN PELVIS WITHOUT IV OR ORAL CONTRAST: HISTORY: Altered mental status. Cirrhosis. Comparison CT study January 23, 2020. 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 There are surgical clips in the right mid abdomen. There is an intramedullary vinnie in the left femur and the patient is status post lumbosacral spine fusion hardware placement. Axial CT images demonstrate that the lung bases are essentially clear. Liver parenchyma is somewhat coarse with mild fatty infiltration pattern. The liver is not felt to be enlarged. Its margins are slightly irregular as before. There is no evidence of ascites today. The spleen is borderline in size without focal splenic lesion. The patient is status post gastric bypass. No adrenal lesion is seen. No focal liver mass lesion is observed. The gallbladder is surgically absent. No pancreatic mass or cyst is seen. Kidneys appear morphologically intact. No hydronephrosis noted. There are clips in the right mid abdomen post appendectomy. Small and large bowel loops are unremarkable. Postoperative change is seen in the anterior abdominal wall. A Arguello catheter is noted in the urinary bladder. No uterine or ovarian abnormality. IMPRESSION: Postoperative changes. Evidence of fatty infiltration of the liver and cirrhosis. No ascites seen. The gallbladder and appendix are surgically absent. Lumbosacral spine fusion hardware is noted. The patient is status post gastric bypass. Electronically Signed by Aristides Clarke MD 03/09/2020 03:43 P
--- NOTE | 2020-03-09 16:42 | ECGEPIP ---
[facility] - ED Test Date: 2020-03-09 Pat Name: SANIYA HOWELL Department: Room: - Gender: Female Portfolio Assistant: [facility] : 1960 Requested By: JEFFRY Marie Order Number: [id number] Reading MD: Araceli Mccurdy Measurements Intervals [place] Rate: 84 P: 34 [place]: 151 QRS: 17 QRSD: 93 T: 32 QT: 372 QTc: 442 Interpretive Statements SINUS RHYTHM NONSPECIFIC T-WAVE ABNORMALITY SIMILAR 01/23/20 Electronically Signed on 03-09-2020 16:42:20 EDT by Araceli Mccurdy
[2020-03-09] MEDS: HumaLOG INSULIN (NovoLOG) PER UNIT SC SCH (16:53)
[2020-03-09] MEDS ORDERED: LACTULOSE 20 GM/30 ML SYRUP UD PO SCH (17:00)
[2020-03-09] MEDS ORDERED: ENTER DRUG NAME HERE (PATIENT'S OWN MED) TD SCH (19:30)
[2020-03-09] MEDS: PERCOCET 5MG/325MG TAB PO PRN (19:48)
[2020-03-09] MEDS ORDERED: HumaLOG INSULIN (NovoLOG) PER UNIT SC SCH (21:00)
[2020-03-09] MEDS ORDERED: ATORVASTATIN 20 MG TAB PO SCH (21:00)
[2020-03-09] MEDS ORDERED: FLUTICASONE PROP 0.05% NASAL SPRAY 16 GM (FLONASE) NARES SCH (21:00)
[2020-03-09] MEDS ORDERED: CEPHALEXIN 500 MG CAP PO SCH (21:00)
[2020-03-09] MEDS ORDERED: DULoxetine 30 MG CAP (CYMBALTA) PO SCH (21:00)
[2020-03-09] MEDS: HEPARIN SOD (PORCINE) 5000UNITS/ML VIAL (J1644 PER 1000UNITS) SC SCH (21:10)
[2020-03-09] MEDS: SPIRONOLACTONE 50 MG TAB PO SCH (21:11)
[2020-03-09] MEDS: NYSTATIN CREAM 15 GM TOP SCH (21:11)
[2020-03-09] MEDS: VITAMIN D (CHOLECALCIFEROL) 400 INTERNATIONAL UNITS TAB PO SCH (21:11)
[2020-03-09] MEDS: CALCIUM CARBONATE 500 MG CHEW U/D PO SCH (21:12)
[2020-03-09] MEDS: busPIRone 10 MG TAB PO SCH (21:12)
[2020-03-09] MEDS: OMEPRAZOLE 20 MG CAP PO SCH (21:12)
[2020-03-09 22:00] VITALS: BP 116/62
[2020-03-10] MEDS: HEPARIN SOD (PORCINE) 5000UNITS/ML VIAL (J1644 PER 1000UNITS) SC SCH (05:00)
[2020-03-10] MEDS: PERCOCET 5MG/325MG TAB PO PRN ×2 (05:06→11:17)
[2020-03-10 06:00] VITALS: BP 107/56
[2020-03-10 06:09] LABS: HEMATOCRIT 29.3 % (36.0-47.0); HEMOGLOBIN 9.7 g/dl (12.0-15.5); MEAN CORPUSCULAR HEMOGLOBIN 33.9 pg (27.0-33.0); MEAN CORPUSCULAR HGB CONC 33.1 g/dl (32.0-36.5); MEAN CORPUSCULAR VOLUME 102.4 fl (80.0-96.0); PLATELET COUNT, AUTOMATED 146 10^3/uL (150-450); RED BLOOD COUNT 2.86 10^6/uL (4.00-5.40); WHITE BLOOD COUNT 4.2 10^3/uL (4.0-10.0)
[2020-03-10 06:46] LABS: ALBUMIN 2.4 GM/DL (3.2-5.2); ALT/SGPT 31 U/L (12-78); BILIRUBIN,TOTAL 0.7 MG/DL (0.2-1.0); BLOOD UREA NITROGEN 11 MG/DL (7-18); CALCIUM LEVEL 8.1 MG/DL (8.5-10.1); CARBON DIOXIDE LEVEL 26 MEQ/L (21-32); CHLORIDE LEVEL 108 MEQ/L (98-107); CREATININE FOR GFR 0.76 MG/DL (0.55-1.30); GLOMERULAR FILTRATION RATE > 60.0 (>51); GLUCOSE, FASTING 87 MG/DL (70-100); MAGNESIUM LEVEL 1.4 MG/DL (1.8-2.4); POTASSIUM SERUM 4.2 MEQ/L (3.5-5.1); SODIUM LEVEL 141 MEQ/L (136-145); TOTAL PROTEIN 5.9 GM/DL (6.4-8.2)
[2020-03-10] MEDS: HumaLOG INSULIN (NovoLOG) PER UNIT SC SCH (07:27)
[2020-03-10] MEDS: LACTULOSE 20 GM/30 ML SYRUP UD PO SCH (08:13)
[2020-03-10] MEDS: busPIRone 10 MG TAB PO SCH (08:14)
[2020-03-10] MEDS: CALCIUM CARBONATE 500 MG CHEW U/D PO SCH (08:14)
[2020-03-10] MEDS: VITAMIN D (CHOLECALCIFEROL) 400 INTERNATIONAL UNITS TAB PO SCH (08:14)
[2020-03-10] MEDS: OMEPRAZOLE 20 MG CAP PO SCH (08:14)
[2020-03-10] MEDS: SPIRONOLACTONE 50 MG TAB PO SCH (08:14)
[2020-03-10] MEDS: NYSTATIN CREAM 15 GM TOP SCH (08:15)
[2020-03-10] MEDS ORDERED: FUROSEMIDE 20 MG TAB PO SCH (09:00)
[2020-03-10] MEDS ORDERED: CelecoXIB (CeleBREX) 100 MG CAP PO SCH (09:00)
[2020-03-10] MEDS ORDERED: ASPIRIN 81 MG CHEW TABLET PO SCH (09:00)
[2020-03-10] MEDS ORDERED: LORATADINE 10 MG TAB PO SCH (09:00)
[2020-03-10] MEDS ORDERED: DULoxetine 30 MG CAP (CYMBALTA) PO SCH (09:00)
[2020-03-10] MEDS ORDERED: CYANOCOBALAMIN 500 MCG TAB PO SCH (09:00)
--- NOTE | 2020-03-10 18:22 | DS.PDOC ---
Discharge Summary General Date of Admission Mar 09, 2020 at 07:37 Date of Discharge 03/10/2020 Attending Physician: FLORENTINO TAMEZ MD Discharge Summary PROCEDURES PERFORMED DURING STAY: None ADMITTING DIAGNOSES: 1. Acute hepatic encephalopathy DISCHARGE DIAGNOSES: 1. Acute hepatic encephalopathy 2. Liver cirrhosis 2/2 Nonalcoholic steatohepatitis d/b hepatic encephalopathy 3. Diabetes mellitus 4. Hyperlipidemia. 5. Chronic back/neck pain 6. Morbid obesity COMPLICATIONS/CHIEF COMPLAINT: Acute Hepatic Encephalopathy. 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 Patient lives at the [facility] and reports that her last BM small on the morning of presentation and she had no knowledge that she is on rifaximin. She otherwise denied any abdominal pain, nausea, emesis, fever, chills, bleeding or worsening abdominal distention. HOSPITAL COURSE: In the ED, work up was notable for lactate of 4.6, ammonia of 65, UA with 1+ bacteria, WBC 6.3, Hgb 10.8, platelets 181, na 136, K 4.3, Cr 0.92 and appeared dry on examination. She was given oxycodone 5mg. 2L NS and had a taylor catheter placed and admitted to medicine for hepatic encephalopathy. I restarted her lactulose and rifaximin with good effect and by morning she was AOx3 and performing at her baseline. She worked with PT and was able to demonstrate performance at her baseline and is now being discharged back to [facility]. DISCHARGE MEDICATIONS: Please see below. ALLERGIES: Please see below. PHYSICAL EXAMINATION ON DISCHARGE: VITAL SIGNS: Please see below. GENERAL: Morbidly obese, NAD, conversant HEENT: Normocephalic, atraumatic, moist mucous membranes, PERRLA, EOMI, anicteric NECK: Supple CARDIOVASCULAR EXAMINATION: S1, S2, no murmurs RESPIRATORY EXAMINATION: CTAB, diminished bases posteriorly, no wheezing, crackles or rhonchi ABDOMINAL EXAMINATION: Normoactive bowel sounds, soft, obese, NTND EXTREMITIES: No LE edema, WWP, L 5th digit with mild erythema with absent nail that she reports to be from recent trauma, no drainage, no streaking erythema SKIN: No rashes, L digit with absent nail stable without erythema or drainage NEUROLOGICAL EXAMINATION: Alert and oriented 3, no focal deficits noted PSYCHIATRIC EXAMINATION: Calm and cooperative, AOx3 LABORATORY DATA: Please see below. IMAGING: head CT: no acute intracranial abnormalities CXR: Very subtle but persistent right basilar opacities. CT A/P: Evidence of fatty infiltration of the liver and cirrhosis. No ascites seen. The gallbladder and appendix are surgically absent. Lumbosacral spine fusion hardware is noted. The patient is status post gastric bypass. PROGNOSIS: Good ACTIVITY: As tolerated DIET: Consistent carb DISCHARGE PLAN: back to [facility] DISPOSITION: [facility]. DISCHARGE INSTRUCTIONS: 1. Please take your lactulose and rifaximin as prescribed ITEMS TO FOLLOWUP ON ON OUTPATIENT: 1. Cirrhosis DISCHARGE CONDITION: Stable TIME SPENT ON DISCHARGE: 34 minutes. Vital Signs/I&Os Vital Signs Date Time Temp Pulse Resp B/P (MAP) Pulse Ox O2 Delivery O2 Flow Rate FiO2 03/10/20 11:47 18 03/10/20 06:00 97.7 86 107/56 (73) 98 Room Air I&O- Last 24 Hours up to 6 AM 03/10/20 06:00 Intake Total 2540 ml Output Total 1350 ml Balance 1190 ml Laboratory Data Labs 24H Laboratory Tests 2 03/09/20 19:49: Bedside Glucose (Misc Panel) 158H 03/10/20 05:49: Nucleated Red Blood Cells % (auto) 0.0, Anion Gap 7L, Glomerular Filtration Rate > 60.0, Lactic Acid Level 1.7, Calcium Level 8.1L, Magnesium Level 1.4L, Total Bilirubin 0.7, Aspartate Amino Transf (AST/SGOT) 49H, Alanine Aminotransferase (ALT/SGPT) 31, Alkaline Phosphatase 94, Total Protein 5.9#L, Albumin 2.4#L, Albumin/Globulin Ratio 0.69L 03/10/20 10:06: Ammonia 75H 03/10/20 11:48: Bedside Glucose (Misc Panel) 136H CBC/BMP Laboratory Tests 03/10/20 05:49 FSBS Laboratory Tests Test 03/09/20 19:49 03/10/20 11:48 Range/Units Bedside Glucose (Misc Panel) 158 136 70-105 MG/DL Microbiology Microbiology 03/09/20 Blood Culture - Preliminary, Resulted No growth after 24 hours . All specim... 03/09/20 Blood Culture - Preliminary, Resulted No growth after 24 hours . All specim... Discharge Medications Scheduled Aspirin (Aspirin) 81 Mg Tab.chew, 81 MG PO QAM, (Reported) Atorvastatin Calcium (Atorvastatin Calcium) 20 Mg Tablet, 20 MG PO QHS, (Reported) Buprenorphine (Butrans) 15 Mcg/Hr Patch.tdwk, 15 MCG TOP QWEEK, (Reported) APPLY WEDNESDAYS 1400, ALTERNATES SHOULDERS Buspirone HCl (Buspirone HCl) 30 Mg Tablet, 30 MG PO BID, (Reported) Calcium Carbonate (Antacid) 200 Mg Tab.chew, 500 MG PO BID, (Reported) Celecoxib (Celebrex) 200 Mg Capsule, 200 MG PO QAM, (Reported) Cephalexin (Cephalexin) 500 Mg Capsule, 500 MG PO QHS, (Reported) Cholecalciferol (Vitamin D3) (Vitamin D-400) 10 Mcg Tablet, 400 UNIT PO BID, (Reported) Cyanocobalamin (Vitamin B-12) (Vitamin B-12) 500 Mcg Tablet, 500 MCG PO QAM, (Reported) Dulaglutide (Trulicity) 1.5 Mg/0.5 Ml Pen.injctr, 1.5 MG SQ QWEEK, (Reported) SUNDAYS AT 1800 Duloxetine Hcl (Duloxetine HCl) 60 Mg Capsule.dr, 60 MG PO DAILY, (Reported) Duloxetine Hcl (Duloxetine HCl) 30 Mg Capsule.dr, 30 MG PO QHS, (Reported) Fluticasone Propionate (Flonase Allergy Relief) 9.9 Ml [place].susp, 2 SPRAY NARES QHS, (Reported) Furosemide (Furosemide) 20 Mg Tab, 20 MG PO DAILY, (Reported) Gabapentin (Gabapentin) 300 Mg Capsule, 900 MG PO TID, (Reported) Lactulose (Lactulose) 10 Gm/15 Ml Solution, 30 ML PO QID, (Reported) Loratadine (Loratadine) 10 Mg Tablet, 10 MG PO DAILY, (Reported) Metformin HCl (Metformin HCl) 1,000 Mg Tablet, 1,000 MG PO BID, (Reported) Methocarbamol (Methocarbamol) 500 Mg Tablet, 500 MG PO TID, (Reported) Omeprazole (Omeprazole) 40 Mg Cap, 40 MG PO BID, (Reported) Rifaximin (Xifaxan) 200 Mg Tablet, 400 MG PO BID, (Reported) Spironolactone (Spironolactone) 100 Mg Tablet, 100 MG PO BID, (Reported) Scheduled PRN Lidocaine (Anecream) 4% Cream..g., 1 APLCT TOP Q4H PRN for PAIN, (Reported) APPLY TO BACK, NECK AND LEGS Polyethylene Glycol 3350 (Miralax) 119 Gm Powder, 17 GM PO DAILY PRN for CONSTIPATION, (Reported) dilute in 8 ounces of water or juice Rizatriptan Benzoate (Rizatriptan) 10 Mg Tab, 10 MG PO DAILY PRN for MIGRAINE, (Reported) Allergies Coded Allergies: ciprofloxacin (Verified Allergy, Intermediate, HIVES, CHILLS, AND FELT LIGHT HEADED, 10/28/19) fluconazole (Verified Allergy, Intermediate, HIVES, 10/28/19) latex (Verified Allergy, Intermediate, HIVES AND RASH ON HANDS, 10/28/19) strawberry (Verified Allergy, Unknown, 10/28/19) FLORENTINO TAMEZ MD Mar 10, 2020 18:22
== END 2020-03-10 12:50 ==
LOC: M ED 07:36 → M ED INP 07:37 → ENRESERV 14:32 → M MS5PR 15:25
PROVIDERS: ADMIT Internal Medicine; ATTEND Internal Medicine
DX: K72.00 Acute and subacute hepatic failure without coma (principal); K75.81 Nonalcoholic steatohepatitis (NASH); K74.60 Unspecified cirrhosis of liver; E11.9 Type 2 diabetes mellitus without complications; E78.5 Hyperlipidemia, unspecified; M54.9 Dorsalgia, unspecified; E66.01 Morbid (severe) obesity due to excess calories; N31.9 Neuromuscular dysfunction of bladder, unspecified; E87.2 Acidosis; L30.4 Erythema intertrigo; K21.9 Gastro-esophageal reflux disease without esophagitis; F32.9 Major depressive disorder, single episode, unspecified; G47.30 Sleep apnea, unspecified; I50.9 Heart failure, unspecified; F10.11 Alcohol abuse, in remission; F11.21 Opioid dependence, in remission; Z87.440 Personal history of urinary (tract) infections; Z98.84 Bariatric surgery status; Z98.1 Arthrodesis status; Z88.1 Allergy status to other antibiotic agents; Z91.040 Latex allergy status; Z91.018 Allergy to other foods; Z79.899 Other long term (current) drug therapy; Z79.82 Long term (current) use of aspirin; Z79.2 Long term (current) use of antibiotics; Z79.84 Long term (current) use of oral hypoglycemic drugs
CPT/HCPCS: 36415; 51702; 70450; 71045; 74176; 80048; 80053; 80076; 81001; 82140; 82550; 82553; 83605; 83735; 83930; 84443; 84484; 85025; 85027; 87040; 93005; 93041; 94760; 96360; 96361; 96372; 97116; 97161; 99285; G0378; J1644

== ENCOUNTER → 2020-03-15 | Outpatient (REF) | payer MEDICARE, MEDICAID ==
[~2020-03-15] MED LIST changes: +SPIR100T3 PO
[2020-03-15 14:21] LABS: BASO % 0.7 % (0.0-1.0); EOS # 0.6 10^3/uL (0.0-0.5); EOS % 9.3 % (0.0-3.0); HEMATOCRIT 31.9 % (36.0-47.0); HEMOGLOBIN 10.5 g/dl (12.0-15.5); LYMPH # 1.7 10^3/uL (1.5-5.0); LYMPH % 28.7 % (24.0-44.0); MEAN CORPUSCULAR HEMOGLOBIN 34.1 pg (27.0-33.0); MEAN CORPUSCULAR HGB CONC 32.9 g/dl (32.0-36.5); MEAN CORPUSCULAR VOLUME 103.6 fl (80.0-96.0); MONO # 0.7 10^3/uL (0.0-0.8); MONO % 11.3 % (0.0-5.0); NEUTROPHILS % 49.8 % (36.0-66.0); PLATELET COUNT, AUTOMATED 184 10^3/uL (150-450); RED BLOOD COUNT 3.08 10^6/uL (4.00-5.40); WHITE BLOOD COUNT 5.9 10^3/uL (4.0-10.0)
[2020-03-15 14:51] LABS: ALBUMIN 3.1 GM/DL (3.2-5.2); CALCIUM LEVEL 9.6 MG/DL (8.5-10.1); CREATININE FOR GFR 1.04 MG/DL (0.55-1.30); GLOMERULAR FILTRATION RATE 57.9 (>51); POTASSIUM SERUM 4.8 MEQ/L (3.5-5.1); TOTAL PROTEIN 7.1 GM/DL (6.4-8.2)
== END ==
LOC: M SFHCPLAZ 12:56
PROVIDERS: ATTEND Family Medicine
DX: K72.90 Hepatic failure, unspecified without coma (principal)

== ENCOUNTER 2020-03-16 08:17 | Emergency (ER) | payer MEDICARE, MEDICAID ==
[~2020-03-16] VITALS: Ht 160 cm; Wt 85.0 kg
[~2020-03-16 08:17] MED LIST changes: -METF-791 PO; +METF-838 PO
[2020-03-16 09:39] LABS: BASO % 0.3 % (0.0-1.0); EOS # 0.5 10^3/uL (0.0-0.5); EOS % 8.2 % (0.0-3.0); HEMATOCRIT 29.1 % (36.0-47.0); HEMOGLOBIN 9.6 g/dl (12.0-15.5); LYMPH # 1.7 10^3/uL (1.5-5.0); LYMPH % 29.3 % (24.0-44.0); MEAN CORPUSCULAR VOLUME 103.2 fl (80.0-96.0); MONO # 0.8 10^3/uL (0.0-0.8); MONO % 13.3 % (0.0-5.0); NEUTROPHILS # 2.8 10^3/uL (1.5-8.5); NEUTROPHILS % 48.6 % (36.0-66.0); PLATELET COUNT, AUTOMATED 151 10^3/uL (150-450); RED BLOOD COUNT 2.82 10^6/uL (4.00-5.40); WHITE BLOOD COUNT 5.7 10^3/uL (4.0-10.0)
[2020-03-16 09:49] LABS: INR 1.18; PROTHROMBIN TIME 14.7 SECONDS (11.8-14.0)
--- NOTE | 2020-03-16 09:49 | REP ---
CT BRAIN WITHOUT CONTRAST: CT brain performed without IV contrast and compared to a prior study of 03/09/2020. Coronal reconstruction images are performed. Ventricles are normal in size and position. There is no midline shift or mass effect. Finch/white differentiation is well maintained. There is no acute hemorrhage or extra-axial fluid collection. No skull fracture is seen. The visualized paranasal sinuses and mastoid air cells are clear with no air fluid levels. IMPRESSION: Negative noncontrast CT brain. Electronically Signed by Jose Enrique Finch MD 03/16/2020 10:53 A
[2020-03-16 09:50] LABS: PARTIAL THROMBOPLASTIN TIME 31.3 SECONDS (25.0-38.4)
[2020-03-16 09:54] LABS: ALT/SGPT 37 U/L (12-78); BLOOD UREA NITROGEN 18 MG/DL (7-18); CARBON DIOXIDE LEVEL 27 MEQ/L (21-32); CHLORIDE LEVEL 100 MEQ/L (98-107); CREATININE FOR GFR 1.15 MG/DL (0.55-1.30); GLOMERULAR FILTRATION RATE 51.6 (>51); GLUCOSE, FASTING 85 MG/DL (70-100); POTASSIUM SERUM 4.3 MEQ/L (3.5-5.1); SODIUM LEVEL 137 MEQ/L (136-145)
[2020-03-16 09:55] LABS: ALBUMIN 2.8 GM/DL (3.2-5.2); BILIRUBIN,DIRECT 0.4 MG/DL (0.0-0.2); BILIRUBIN,TOTAL 0.8 MG/DL (0.2-1.0); CK-MB VALUE MASS 4.2 NG/ML (<3.6); CPK CREATINE PHOSPHOKINASE 175 U/L (26-192); FREE T4 1.07 NG/DL (0.76-1.46); TOTAL PROTEIN 6.4 GM/DL (6.4-8.2); TROPONIN I < 0.02 NG/ML (< 0.10)
--- NOTE | 2020-03-16 10:25 | REP ---
CT CERVICAL SPINE: CT cervical spine performed in the axial plane. Sagittal and coronal reconstruction images are performed. There is no evidence of acute fracture or dislocation. There is evidence of prior anterior cervical discectomy and fusion at C4 through C6. There is posterior disc bulging which is partially calcified at the C3-4 level causing canal stenosis at that level. There is posterior osteophytic ridging at C5-6, more so on the right, causing canal stenosis. IMPRESSION: Prior surgical fusion and anterior cervical discectomy C4 through C6. No acute fracture or dislocation. Electronically Signed by Jose Enrique Finch MD 03/16/2020 10:54 A
[2020-03-16 10:27] VITALS: BP 115/68
--- NOTE | 2020-03-16 20:25 | ECGEPIP ---
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
== END 2020-03-16 11:04 | disposition home or self-care (01) ==
LOC: EDBD 08:17 → M ED 08:17
DX: E87.2 Acidosis (principal); E72.20 Disorder of urea cycle metabolism, unspecified; R29.6 Repeated falls; Y92.128 Other place in nursing home as the place of occurrence of the external cause; E11.9 Type 2 diabetes mellitus without complications; E78.5 Hyperlipidemia, unspecified; K75.81 Nonalcoholic steatohepatitis (NASH); K74.60 Unspecified cirrhosis of liver; N31.9 Neuromuscular dysfunction of bladder, unspecified; Z91.040 Latex allergy status; Z88.1 Allergy status to other antibiotic agents; Z91.018 Allergy to other foods; Z79.899 Other long term (current) drug therapy; Z79.82 Long term (current) use of aspirin; Z79.84 Long term (current) use of oral hypoglycemic drugs; Z79.2 Long term (current) use of antibiotics

== ENCOUNTER → 2020-03-17 | Outpatient (CLI) | payer MEDICARE, MEDICAID ==
--- NOTE | 2020-03-17 20:44 | ECHO ---
DATE OF PROCEDURE: 03/17/2020 Date of : 1960 Age: 59 Gender: Female Height: 63 inches Weight: 180 pounds Body surface area: 1.85 meters squared Outpatient. REFERRING PHYSICIAN: Dr. Andrew Beck INDICATION: Heart failure (diastolic) - chronic. MEASUREMENTS: 2D Measurements: RV: 3.1 cm LV: 3.8 cm Septum: 1.0 cm Posterior wall: 1.0 cm Aortic root: 2.9 cm LA: 3.3 cm LVEF: 75% Doppler Measurements: AV: 1.55 meters per second LVOT: 1.24 meters per second LVOT diameter: 1.9 cm MV-E: 74, A: 98, EA ratio: 0.8 Early mitral deceleration time: 201 milliseconds E prime (medial): 5.6, A (medial): 9.5, E prime (lateral): 7.7. Average E/E prime ratio: 11/pulmonary capillary wedge pressure: 15.7. PV: 1.0 meters per second Pulmonary artery acceleration time: 137 milliseconds PASP: 24 mmHg IVC: 1.4 cm COMMENTS: Normal sinus rhythm without intraventricular conduction disturbance. M-mode and two-dimensional echocardiography was performed with pulsed, continuous wave, color flow and tissue Doppler studies. Normal left ventricular size, wall thickness and wall motion. Normal left atrial size with grade 1 left ventricular (LV) diastolic dysfunction but current estimated mean left atrial pressure upper limits of normal to slightly increased. Normal right heart chamber sizes and motion and estimated pulmonary arterial pressure. Normal inferior vena cava (IVC) size and collapse against an elevated central venous pressure. Normal aortic dimensions. Normal appearing and functioning aortic valve. Normal appearing mitral valvular apparatus and leaflet excursion with no posterior systolic buckling and only trace insufficiency. Normal appearing tricuspid valve with only trace insufficiency. No apparent intracardiac mass or pericardial effusion.
== END ==
LOC: M CARPUL 09:01
PROVIDERS: ATTEND Family Medicine
DX: I50.32 Chronic diastolic (congestive) heart failure (principal)

== ENCOUNTER → 2020-03-18 | Outpatient (REF) | payer MEDICARE, MEDICAID ==
[2020-03-18 13:40] LABS: BASO % 0.5 % (0.0-1.0); EOS # 0.5 10^3/uL (0.0-0.5); EOS % 7.2 % (0.0-3.0); HEMATOCRIT 30.7 % (36.0-47.0); HEMOGLOBIN 10.1 g/dl (12.0-15.5); LYMPH % 30.3 % (24.0-44.0); MEAN CORPUSCULAR HEMOGLOBIN 34.1 pg (27.0-33.0); MEAN CORPUSCULAR HGB CONC 32.9 g/dl (32.0-36.5); MEAN CORPUSCULAR VOLUME 103.7 fl (80.0-96.0); MONO # 0.8 10^3/uL (0.0-0.8); MONO % 11.7 % (0.0-5.0); NEUTROPHILS # 3.3 10^3/uL (1.5-8.5); NEUTROPHILS % 50.1 % (36.0-66.0); PLATELET COUNT, AUTOMATED 171 10^3/uL (150-450); RED BLOOD COUNT 2.96 10^6/uL (4.00-5.40); WHITE BLOOD COUNT 6.6 10^3/uL (4.0-10.0)
[2020-03-18 14:35] LABS: BILIRUBIN,TOTAL 0.8 MG/DL (0.2-1.0); CALCIUM LEVEL 8.9 MG/DL (8.5-10.1); CREATININE FOR GFR 1.15 MG/DL (0.55-1.30); GLOMERULAR FILTRATION RATE 51.6 (>51); POTASSIUM SERUM 3.9 MEQ/L (3.5-5.1); TOTAL PROTEIN 6.6 GM/DL (6.4-8.2)
== END ==
PROVIDERS: ATTEND Family Medicine
DX: K75.81 Nonalcoholic steatohepatitis (NASH) (principal)

== ENCOUNTER → 2020-03-25 | Outpatient (REF) | payer MEDICARE, MEDICAID ==
[2020-03-25 10:49] LABS: BASO % 0.5 % (0.0-1.0); EOS # 0.4 10^3/uL (0.0-0.5); EOS % 10.7 % (0.0-3.0); HEMATOCRIT 28.5 % (36.0-47.0); HEMOGLOBIN 9.3 g/dl (12.0-15.5); LYMPH # 1.5 10^3/uL (1.5-5.0); LYMPH % 36.3 % (24.0-44.0); MEAN CORPUSCULAR HEMOGLOBIN 34.3 pg (27.0-33.0); MEAN CORPUSCULAR HGB CONC 32.6 g/dl (32.0-36.5); MEAN CORPUSCULAR VOLUME 105.2 fl (80.0-96.0); MONO # 0.4 10^3/uL (0.0-0.8); MONO % 10.4 % (0.0-5.0); NEUTROPHILS # 1.7 10^3/uL (1.5-8.5); NEUTROPHILS % 41.9 % (36.0-66.0); PLATELET COUNT, AUTOMATED 164 10^3/uL (150-450); RED BLOOD COUNT 2.71 10^6/uL (4.00-5.40)
[2020-03-25 11:11] LABS: ALBUMIN 2.5 GM/DL (3.2-5.2); BILIRUBIN,TOTAL 0.7 MG/DL (0.2-1.0); CALCIUM LEVEL 7.8 MG/DL (8.5-10.1); CREATININE FOR GFR 1.03 MG/DL (0.55-1.30); GLOMERULAR FILTRATION RATE 58.6 (>51)
== END ==
PROVIDERS: ATTEND Family Medicine
DX: K72.90 Hepatic failure, unspecified without coma (principal)

== ENCOUNTER → 2020-04-12 | Outpatient (REF) | payer MEDICARE, MEDICAID ==
[2020-04-12 09:55] LABS: BASO % 0.9 % (0.0-1.0); EOS # 0.4 10^3/uL (0.0-0.5); EOS % 8.7 % (0.0-3.0); HEMATOCRIT 27.6 % (36.0-47.0); LYMPH # 1.9 10^3/uL (1.5-5.0); LYMPH % 41.6 % (24.0-44.0); MEAN CORPUSCULAR HEMOGLOBIN 34.1 pg (27.0-33.0); MEAN CORPUSCULAR HGB CONC 32.6 g/dl (32.0-36.5); MEAN CORPUSCULAR VOLUME 104.5 fl (80.0-96.0); MONO # 0.5 10^3/uL (0.0-0.8); MONO % 11.3 % (0.0-5.0); NEUTROPHILS # 1.7 10^3/uL (1.5-8.5); NEUTROPHILS % 37.3 % (36.0-66.0); PLATELET COUNT, AUTOMATED 142 10^3/uL (150-450); RED BLOOD COUNT 2.64 10^6/uL (4.00-5.40); WHITE BLOOD COUNT 4.6 10^3/uL (4.0-10.0)
[2020-04-12 10:20] LABS: MAGNESIUM LEVEL 1.8 MG/DL (1.8-2.4); PERCENT SATURATION 12.5 % (13.2-45.0)
[2020-04-12 10:31] LABS: INR 1.17; PROTHROMBIN TIME 14.6 SECONDS (11.8-14.0)
[2020-04-12 10:32] LABS: PARTIAL THROMBOPLASTIN TIME 28.1 SECONDS (25.0-38.4)
[2020-04-12 21:06] LABS: HEMOGLOBIN A1c 6.1 %
== END ==
PROVIDERS: ATTEND Family Medicine
DX: E53.8 Deficiency of other specified B group vitamins (principal); E11.3299 Type 2 diabetes mellitus wit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, unspecified eye; Z79.899 Other long term (current) drug therapy; Z79.01 Long term (current) use of anticoagulants

== ENCOUNTER → 2020-04-18 | Outpatient (REF) | payer MEDICARE, MEDICAID ==
[~2020-04-18] MED LIST changes: -LACT10SO29 PO; +LACT20EL PO
[2020-04-18 18:45] LABS: APPEARANCE, URINE CLEAR (CLEAR); BACTERIA, URINE AUTO 2+ (NEGATIVE); BILIRUBIN, URINE AUTO NEGATIVE (NEGATIVE); BLOOD, URINE BLOOD NEGATIVE (NEGATIVE); COLOR, URINE YELLOW (YELLOW); GLUCOSE, URINE (UA) AUTO 2+ mg/dL (NEGATIVE); KETONE, URINE AUTO NEGATIVE (NEGATIVE); LEUKOCYTE ESTERASE, URINE AUTO TRACE (NEGATIVE); MUCUS, URINE SMALL (NEGATIVE); NITRITE, URINE AUTO NEGATIVE (NEGATIVE); PROTEIN, URINE AUTO NEGATIVE (NEGATIVE); RBC, URINE AUTO 0 /HPF (0-3); SQUAMOUS EPITHELIAL CELL UR AU 1 /HPF (0-6); UROBILINOGEN, URINE AUTO 0.2 mg/dL (0.0-2.0); WBC, URINE AUTO 1 /HPF (0-3)
== END ==
PROVIDERS: ATTEND Family Medicine
DX: N39.0 Urinary tract infection, site not specified (principal)

== ENCOUNTER → 2020-04-25 | Outpatient (CLI) | payer MEDICARE ==
--- NOTE | 2020-04-25 14:50 | REPMRS ---
Patient History The patient states she had a clinical breast exam in April 2020. No known family history of cancer. No Hormone Replacement Therapy Digital Woman Screen Mammo: April 25, 2020 - Exam #: [id number] Bilateral CC and MLO view(s) were taken. Technologist: Talia Valencia, Technologist Prior study comparison: April 22, 2019, bilateral digital woman screen mammo performed at [facility]. April 12, 2016, digital woman screen mammo performed at [facility]. January 11, 2015, digital woman screen mammo performed at [facility]. FINDINGS: There are scattered fibroglandular densities. The Volpara volumetric breast density category is:B. There has been no change in the appearance of the mammogram from the prior studies. There is a mild amount of scattered fibroglandular density which is fairly symmetric. There is no interval development of dominant mass, architectural distortion, or grouped microcalcification suggestive of malignancy. 3-D tomosynthesis shows no additional findings. Assessment: BI-RADS/ACR category 1 mammogram. Negative Mammogram. Recommendation Routine screening mammogram of both breasts in 1 year (for women over age 40). This patient's Lifetime Breast Cancer RIsk is estimated at 9.8 %. This mammogram was interpreted with the aid of an FDA-approved computer-aided dectection system. Electronically Signed By: Mehran Clarke MD 04/25/20 [id number]
== END ==
LOC: M WHC 12:22
PROVIDERS: ATTEND Nurse Practitioner Family
DX: Z12.31 Encounter for screening mammogram for malignant neoplasm of breast (principal)
CPT/HCPCS: 77063; 77067; G0463

== ENCOUNTER → 2020-04-26 | Outpatient (REF) | payer MEDICARE, MEDICAID ==
[2020-04-26 09:50] LABS: HEMATOCRIT 28.4 % (36.0-47.0); HEMOGLOBIN 8.9 g/dl (12.0-15.5); MEAN CORPUSCULAR HEMOGLOBIN 33.3 pg (27.0-33.0); MEAN CORPUSCULAR HGB CONC 31.3 g/dl (32.0-36.5); MEAN CORPUSCULAR VOLUME 106.4 fl (80.0-96.0); PLATELET COUNT, AUTOMATED 140 10^3/uL (150-450); RED BLOOD COUNT 2.67 10^6/uL (4.00-5.40); WHITE BLOOD COUNT 3.8 10^3/uL (4.0-10.0)
[2020-04-26 10:12] LABS: BASOPHILS 1 % (0-1); EOSINOPHILS 7 % (0-3); LYMPHOCYTES 52 % (16-44); MONOCYTES 2 % (0-5); NEUTROPHILS 38 % (28-66)
[2020-04-26 10:13] LABS: PLATELET ESTIMATE DECREASED (NORMAL)
== END ==
PROVIDERS: ATTEND Family Medicine
DX: D50.9 Iron deficiency anemia, unspecified (principal)

== ENCOUNTER 2020-04-29 12:20 | Outpatient (CLI) | payer MEDICARE, MEDICAID ==
[~2020-04-29] VITALS: Ht 160 cm; Wt 86.8 kg
[2020-04-29 12:50] VITALS: BP 106/52
[2020-04-29] MEDS ORDERED: EPINEPHrine INJ 1 MG/ML 1ML AMP IM PRN (13:00)
[2020-04-29] MEDS ORDERED: FERRIC CARBOXYMALTOSE INJ 750 MG in NS 250 ML IV ONE (13:00)
[2020-04-29] MEDS ORDERED: NS 1,000 ML IV SCH (13:00)
[2020-04-29] MEDS ORDERED: methylPREDNISolone INJ 125 MG/2 ML VIAL (J2930) IV PRN (13:00)
[2020-04-29] MEDS ORDERED: ALBUTEROL SULFATE 2.5 MG/0.5 ML INH NEB SOLN INH PRN (13:00)
[2020-04-29] MEDS ORDERED: diphenhydrAMINE 50MG/ML VIAL (J1200) IV PRN (13:00)
[2020-04-29 13:45] VITALS: BP 110/53
== END 2020-04-29 14:45 | disposition home or self-care (01) ==
LOC: M INFU 12:20
PROVIDERS: ATTEND Family Medicine
DX: D50.9 Iron deficiency anemia, unspecified (principal); Z88.1 Allergy status to other antibiotic agents; Z88.8 Allergy status to other drugs, medicaments and biological substances; Z91.040 Latex allergy status
CPT/HCPCS: 96365; J1439

== ENCOUNTER → 2020-05-05 | Outpatient (REF) | payer MEDICARE ==
[~2020-05-05] MED LIST changes: -AMIT25TA PO; +AMIT25TA17 PO; +CYAN500T14 PO; -CYAN500T8 PO; +GABA-282 PO; -GABA-843 PO; +METH-1164 PO; +METH-1165 PO; -METH1TAB40 PO; -METH750T2 PO
[2020-05-05 12:09] LABS: HEMATOCRIT 26.5 % (36.0-47.0); HEMOGLOBIN 8.4 g/dl (12.0-15.5); MEAN CORPUSCULAR HEMOGLOBIN 33.7 pg (27.0-33.0); MEAN CORPUSCULAR HGB CONC 31.7 g/dl (32.0-36.5); MEAN CORPUSCULAR VOLUME 106.4 fl (80.0-96.0); PLATELET COUNT, AUTOMATED 113 10^3/uL (150-450); RED BLOOD COUNT 2.49 10^6/uL (4.00-5.40); WHITE BLOOD COUNT 5.3 10^3/uL (4.0-10.0)
[2020-05-05 12:21] LABS: BASOPHILS 1 % (0-1); EOSINOPHILS 5 % (0-3); LYMPHOCYTES 33 % (16-44); MONOCYTES 8 % (0-5); NEUTROPHILS 52 % (28-66)
[2020-05-05 12:22] LABS: ANISOCYTOSIS 2+; POIKILOCYTOSIS 1+; POLYCHROMASIA 2+
[2020-05-05 12:25] LABS: OVALOCYTES 1+; PLATELET ESTIMATE DECREASED (NORMAL)
[2020-05-05 12:40] LABS: ALBUMIN 2.9 GM/DL (3.2-5.2); ALT/SGPT 30 U/L (12-78); BILIRUBIN,TOTAL 0.4 MG/DL (0.2-1.0); BLOOD UREA NITROGEN 15 MG/DL (7-18); CALCIUM LEVEL 8.8 MG/DL (8.5-10.1); CARBON DIOXIDE LEVEL 30 MEQ/L (21-32); CHLORIDE LEVEL 108 MEQ/L (98-107); CREATININE FOR GFR 0.97 MG/DL (0.55-1.30); FERRITIN 401 NG/ML (8-252); GLOMERULAR FILTRATION RATE > 60.0 (>51); GLUCOSE, FASTING 132 MG/DL (70-100); POTASSIUM SERUM 3.9 MEQ/L (3.5-5.1); SODIUM LEVEL 142 MEQ/L (136-145); TOTAL PROTEIN 6.3 GM/DL (6.4-8.2)
[2020-05-05 12:41] LABS: VITAMIN B12 LEVEL > 2000 PG/ML (247-911)
== END ==
LOC: M SFHCPLAZ 10:20
PROVIDERS: ATTEND Family Medicine
DX: D50.9 Iron deficiency anemia, unspecified (principal); E53.8 Deficiency of other specified B group vitamins; N39.0 Urinary tract infection, site not specified

== ENCOUNTER → 2020-05-27 | Outpatient (REF) | payer MEDICARE, MEDICAID ==
[~2020-05-27] MED LIST changes: +AMIT25TA PO; -AMIT25TA17 PO; -CYAN500T14 PO; +CYAN500T8 PO; -GABA-282 PO; +GABA-843 PO; -METH-1164 PO; -METH-1165 PO; +METH1TAB40 PO; +METH750T2 PO
[2020-05-27 09:36] LABS: BASO % 0.5 % (0.0-1.0); EOS # 0.5 10^3/uL (0.0-0.5); EOS % 8.8 % (0.0-3.0); HEMATOCRIT 36.8 % (36.0-47.0); LYMPH # 2.4 10^3/uL (1.5-5.0); LYMPH % 41.9 % (24.0-44.0); MEAN CORPUSCULAR HEMOGLOBIN 36.3 pg (27.0-33.0); MEAN CORPUSCULAR HGB CONC 32.6 g/dl (32.0-36.5); MEAN CORPUSCULAR VOLUME 111.2 fl (80.0-96.0); MONO # 0.6 10^3/uL (0.0-0.8); NEUTROPHILS # 2.2 10^3/uL (1.5-8.5); NEUTROPHILS % 38.6 % (36.0-66.0); PLATELET COUNT, AUTOMATED 151 10^3/uL (150-450); RED BLOOD COUNT 3.31 10^6/uL (4.00-5.40); WHITE BLOOD COUNT 5.8 10^3/uL (4.0-10.0)
[2020-05-27 09:56] LABS: ALBUMIN 3.2 GM/DL (3.2-5.2); BLOOD UREA NITROGEN 17 MG/DL (7-18); CALCIUM LEVEL 9.1 MG/DL (8.5-10.1); CARBON DIOXIDE LEVEL 30 MEQ/L (21-32); CHLORIDE LEVEL 107 MEQ/L (98-107); CREATININE FOR GFR 0.92 MG/DL (0.55-1.30); GLOMERULAR FILTRATION RATE > 60.0 (>51); GLUCOSE, FASTING 113 MG/DL (70-100); PHOSPHORUS LEVEL 4.4 MG/DL (2.5-4.9); POTASSIUM SERUM 4.6 MEQ/L (3.5-5.1); SODIUM LEVEL 144 MEQ/L (136-145)
== END ==
PROVIDERS: ATTEND Family Medicine
DX: D50.9 Iron deficiency anemia, unspecified (principal)

== ENCOUNTER 2020-06-17 08:10 | Inpatient (IN) | payer MEDICARE, MEDICAID ==
[2020-06-17] MEDS ORDERED: FUROSEMIDE 20 MG TAB ONE (15:50)
[2020-06-17] MEDS ORDERED: LACTULOSE 20 GM/30 ML SYRUP UD ONE ×2 (15:50→20:25)
[2020-06-17] MEDS ORDERED: ACETAMINOPHEN 325 MG TAB ONE (15:50)
[2020-06-17] MEDS ORDERED: CelecoXIB (CeleBREX) 100 MG CAP ONE (15:50)
[2020-06-17] MEDS ORDERED: HEPARIN SOD (PORCINE) 5000UNITS/ML 1ML VIAL/SYRINGE As Ordered ONE (15:50)
[2020-06-17] MEDS ORDERED: ASPIRIN 81 MG ENTERIC TAB ONE (15:50)
[2020-06-17] MEDS ORDERED: LACTULOSE 20 GM/30 ML SYRUP UD As Ordered ONE ×2 (15:50→20:25)
[2020-06-17] MEDS ORDERED: HEPARIN SOD (PORCINE) 5000UNITS/ML 1ML VIAL/SYRINGE ONE (15:50)
[2020-06-17] MEDS ORDERED: CelecoXIB (CeleBREX) 100 MG CAP As Ordered ONE (15:51)
[2020-06-17] MEDS ORDERED: FUROSEMIDE 20 MG TAB As Ordered ONE (15:51)
[2020-06-17] MEDS ORDERED: ASPIRIN 81 MG ENTERIC TAB As Ordered ONE (15:51)
[2020-06-17] MEDS ORDERED: ACETAMINOPHEN 325 MG TAB As Ordered ONE (16:01)
[2020-06-17] MEDS ORDERED: ISOVUE-370 76% 100ML VIAL As Ordered ONE (16:39)
[2020-06-17] MEDS ORDERED: ATORVASTATIN 20 MG TAB As Ordered ONE (20:25)
[2020-06-17] MEDS ORDERED: POTASSIUM CHLORIDE 10 MEQ SR TABLET As Ordered ONE (20:25)
[2020-06-17] MEDS ORDERED: POTASSIUM CHLORIDE 10 MEQ SR TABLET ONE (20:25)
[2020-06-17] MEDS ORDERED: ATORVASTATIN 20 MG TAB ONE (20:25)
[2020-06-18] MEDS ORDERED: ACETAMINOPHEN TAB 650MG DOSE (2X325MG) ONE ×2 (03:19→09:00)
[2020-06-18] MEDS ORDERED: ACETAMINOPHEN TAB 650MG DOSE (2X325MG) As Ordered ONE ×2 (03:19→09:00)
[2020-06-18] MEDS ORDERED: CelecoXIB (CeleBREX) 100 MG CAP ONE (09:00)
[2020-06-18] MEDS ORDERED: POTASSIUM CHLORIDE 10 MEQ SR TABLET As Ordered ONE ×2 (09:00→20:23)
[2020-06-18] MEDS ORDERED: FUROSEMIDE 20 MG TAB ONE (09:00)
[2020-06-18] MEDS ORDERED: POTASSIUM CHLORIDE 10 MEQ SR TABLET ONE ×2 (09:00→20:23)
[2020-06-18] MEDS ORDERED: HEPARIN SOD (PORCINE) 5000UNITS/ML 1ML VIAL/SYRINGE As Ordered ONE (09:00)
[2020-06-18] MEDS ORDERED: HEPARIN SOD (PORCINE) 5000UNITS/ML 1ML VIAL/SYRINGE ONE (09:00)
[2020-06-18] MEDS ORDERED: ASPIRIN 81 MG ENTERIC TAB ONE (09:00)
[2020-06-18] MEDS ORDERED: FUROSEMIDE 20 MG TAB As Ordered ONE (09:01)
[2020-06-18] MEDS ORDERED: CelecoXIB (CeleBREX) 100 MG CAP As Ordered ONE ×2 (09:01→09:48)
[2020-06-18] MEDS ORDERED: ASPIRIN 81 MG ENTERIC TAB As Ordered ONE (09:01)
[2020-06-18] MEDS ORDERED: ATORVASTATIN 20 MG TAB As Ordered ONE (20:23)
[2020-06-18] MEDS ORDERED: ATORVASTATIN 20 MG TAB ONE (20:23)
[2020-06-19] MEDS ORDERED: LACTULOSE 20 GM/30 ML SYRUP UD ONE ×4 (08:54→20:40)
[2020-06-19] MEDS ORDERED: CelecoXIB (CeleBREX) 100 MG CAP ONE (08:54)
[2020-06-19] MEDS ORDERED: HEPARIN SOD (PORCINE) 5000UNITS/ML 1ML VIAL/SYRINGE As Ordered ONE (08:54)
[2020-06-19] MEDS ORDERED: FUROSEMIDE 20 MG TAB ONE (08:54)
[2020-06-19] MEDS ORDERED: HEPARIN SOD (PORCINE) 5000UNITS/ML 1ML VIAL/SYRINGE ONE (08:54)
[2020-06-19] MEDS ORDERED: POTASSIUM CHLORIDE 10 MEQ SR TABLET ONE ×2 (08:54→20:40)
[2020-06-19] MEDS ORDERED: ASPIRIN 81 MG ENTERIC TAB ONE (08:54)
[2020-06-19] MEDS ORDERED: DULoxetine 30 MG CAP (CYMBALTA) ONE (08:54)
[2020-06-19] MEDS ORDERED: DULoxetine 30 MG CAP (CYMBALTA) As Ordered ONE (08:55)
[2020-06-19] MEDS ORDERED: POTASSIUM CHLORIDE 10 MEQ SR TABLET As Ordered ONE ×2 (08:55→20:40)
[2020-06-19] MEDS ORDERED: ASPIRIN 81 MG ENTERIC TAB As Ordered ONE (08:58)
[2020-06-19] MEDS ORDERED: CelecoXIB (CeleBREX) 100 MG CAP As Ordered ONE (08:59)
[2020-06-19] MEDS ORDERED: FUROSEMIDE 20 MG TAB As Ordered ONE (08:59)
[2020-06-19] MEDS ORDERED: LACTULOSE 20 GM/30 ML SYRUP UD As Ordered ONE ×4 (09:04→20:40)
[2020-06-19] MEDS ORDERED: ATORVASTATIN 20 MG TAB As Ordered ONE (20:40)
[2020-06-19] MEDS ORDERED: ATORVASTATIN 20 MG TAB ONE (20:40)
[2020-06-20] MEDS ORDERED: POTASSIUM CHLORIDE 10 MEQ SR TABLET ONE ×2 (08:49→20:00)
[2020-06-20] MEDS ORDERED: DULoxetine 30 MG CAP (CYMBALTA) As Ordered ONE (08:49)
[2020-06-20] MEDS ORDERED: ASPIRIN 81 MG ENTERIC TAB As Ordered ONE (08:49)
[2020-06-20] MEDS ORDERED: DULoxetine 30 MG CAP (CYMBALTA) ONE (08:49)
[2020-06-20] MEDS ORDERED: HEPARIN SOD (PORCINE) 5000UNITS/ML 1ML VIAL/SYRINGE As Ordered ONE (08:49)
[2020-06-20] MEDS ORDERED: ASPIRIN 81 MG ENTERIC TAB ONE (08:49)
[2020-06-20] MEDS ORDERED: LACTULOSE 20 GM/30 ML SYRUP UD As Ordered ONE ×4 (08:49→20:01)
[2020-06-20] MEDS ORDERED: FUROSEMIDE 20 MG TAB ONE (08:49)
[2020-06-20] MEDS ORDERED: LACTULOSE 20 GM/30 ML SYRUP UD ONE ×4 (08:49→20:00)
[2020-06-20] MEDS ORDERED: POTASSIUM CHLORIDE 10 MEQ SR TABLET As Ordered ONE ×2 (08:49→20:01)
[2020-06-20] MEDS ORDERED: HEPARIN SOD (PORCINE) 5000UNITS/ML 1ML VIAL/SYRINGE ONE (08:49)
[2020-06-20] MEDS ORDERED: CelecoXIB (CeleBREX) 100 MG CAP ONE (08:49)
[2020-06-20] MEDS ORDERED: CelecoXIB (CeleBREX) 100 MG CAP As Ordered ONE (08:49)
[2020-06-20] MEDS ORDERED: FUROSEMIDE 20 MG TAB As Ordered ONE (08:50)
[2020-06-20] MEDS ORDERED: ACETAMINOPHEN TAB 650MG DOSE (2X325MG) ONE (08:51)
[2020-06-20] MEDS ORDERED: ATORVASTATIN 20 MG TAB As Ordered ONE (20:00)
[2020-06-20] MEDS ORDERED: ATORVASTATIN 20 MG TAB ONE (20:00)
[2020-06-21] MEDS ORDERED: HEPARIN SOD (PORCINE) 5000UNITS/ML 1ML VIAL/SYRINGE As Ordered ONE (08:59)
[2020-06-21] MEDS ORDERED: POTASSIUM CHLORIDE 10 MEQ SR TABLET ONE ×2 (09:00→21:16)
[2020-06-21] MEDS ORDERED: FUROSEMIDE 20 MG TAB ONE (09:00)
[2020-06-21] MEDS ORDERED: CelecoXIB (CeleBREX) 100 MG CAP ONE (09:00)
[2020-06-21] MEDS ORDERED: ACETAMINOPHEN TAB 650MG DOSE (2X325MG) As Ordered ONE (09:00)
[2020-06-21] MEDS ORDERED: POTASSIUM CHLORIDE 10 MEQ SR TABLET As Ordered ONE ×2 (09:00→21:17)
[2020-06-21] MEDS ORDERED: LACTULOSE 20 GM/30 ML SYRUP UD ONE ×4 (09:00→21:16)
[2020-06-21] MEDS ORDERED: HEPARIN SOD (PORCINE) 5000UNITS/ML 1ML VIAL/SYRINGE ONE (09:00)
[2020-06-21] MEDS ORDERED: ASPIRIN 81 MG ENTERIC TAB ONE (09:00)
[2020-06-21] MEDS ORDERED: ACETAMINOPHEN TAB 650MG DOSE (2X325MG) ONE (09:00)
[2020-06-21] MEDS ORDERED: ASPIRIN 81 MG CHEW TABLET As Ordered ONE (09:00)
[2020-06-21] MEDS ORDERED: DULoxetine 30 MG CAP (CYMBALTA) ONE (09:00)
[2020-06-21] MEDS ORDERED: DULoxetine 30 MG CAP (CYMBALTA) As Ordered ONE (09:01)
[2020-06-21] MEDS ORDERED: FUROSEMIDE 20 MG TAB As Ordered ONE (09:01)
[2020-06-21] MEDS ORDERED: LACTULOSE 20 GM/30 ML SYRUP UD As Ordered ONE ×4 (09:01→21:21)
[2020-06-21] MEDS ORDERED: CelecoXIB (CeleBREX) 100 MG CAP As Ordered ONE (09:01)
[2020-06-21] MEDS ORDERED: ATORVASTATIN 20 MG TAB ONE (21:16)
[2020-06-21] MEDS ORDERED: ATORVASTATIN 20 MG TAB As Ordered ONE (21:16)
[2020-06-22] MEDS ORDERED: HEPARIN SOD (PORCINE) 5000UNITS/ML 1ML VIAL/SYRINGE ONE (09:40)
[2020-06-22] MEDS ORDERED: CelecoXIB (CeleBREX) 100 MG CAP ONE (09:40)
[2020-06-22] MEDS ORDERED: HEPARIN SOD (PORCINE) 5000UNITS/ML 1ML VIAL/SYRINGE As Ordered ONE (09:40)
[2020-06-22] MEDS ORDERED: FUROSEMIDE 20 MG TAB ONE (09:40)
[2020-06-22] MEDS ORDERED: DULoxetine 30 MG CAP (CYMBALTA) ONE (09:40)
[2020-06-22] MEDS ORDERED: LACTULOSE 20 GM/30 ML SYRUP UD ONE (09:40)
[2020-06-22] MEDS ORDERED: ACETAMINOPHEN TAB 650MG DOSE (2X325MG) ONE (09:40)
[2020-06-22] MEDS ORDERED: POTASSIUM CHLORIDE 10 MEQ SR TABLET ONE (09:40)
[2020-06-22] MEDS ORDERED: ATORVASTATIN 20 MG TAB As Ordered ONE (09:40)
[2020-06-22] MEDS ORDERED: ASPIRIN 81 MG ENTERIC TAB ONE (09:40)
[2020-06-22] MEDS ORDERED: ASPIRIN 81 MG ENTERIC TAB As Ordered ONE (09:41)
[2020-06-22] MEDS ORDERED: POTASSIUM CHLORIDE 10 MEQ SR TABLET As Ordered ONE (09:41)
[2020-06-22] MEDS ORDERED: FUROSEMIDE 20 MG TAB As Ordered ONE (09:41)
[2020-06-22] MEDS ORDERED: CelecoXIB (CeleBREX) 100 MG CAP As Ordered ONE (09:41)
[2020-06-22] MEDS ORDERED: DULoxetine 30 MG CAP (CYMBALTA) As Ordered ONE (09:41)
[2020-06-22] MEDS ORDERED: LACTULOSE 20 GM/30 ML SYRUP UD As Ordered ONE (09:41)
[2020-06-22] MEDS ORDERED: ACETAMINOPHEN TAB 650MG DOSE (2X325MG) As Ordered ONE (09:48)
[2020-07-31 16:15] LABS: BASO # 0.1 10^3/uL (0.0-0.2); BASO % 0.7 % (0.0-1.0); EOS # 0.5 10^3/uL (0.0-0.5); EOS % 6.8 % (0.0-3.0); HEMATOCRIT 41.4 % (36.0-47.0); HEMOGLOBIN 13.9 g/dl (12.0-15.5); LYMPH # 1.9 10^3/uL (1.5-5.0); LYMPH % 27.6 % (24.0-44.0); MEAN CORPUSCULAR HEMOGLOBIN 36.7 pg (27.0-33.0); MEAN CORPUSCULAR HGB CONC 33.6 g/dl (32.0-36.5); MEAN CORPUSCULAR VOLUME 109.2 fl (80.0-96.0); MONO # 0.7 10^3/uL (0.0-0.8); MONO % 9.4 % (0.0-5.0); NEUTROPHILS # 3.8 10^3/uL (1.5-8.5); NEUTROPHILS % 54.9 % (36.0-66.0); PLATELET COUNT, AUTOMATED 176 10^3/uL (150-450); RED BLOOD COUNT 3.79 10^6/uL (4.00-5.40); WHITE BLOOD COUNT 6.9 10^3/uL (4.0-10.0)
[2020-07-31 20:48] LABS: APPEARANCE, URINE HAZY (CLEAR); BACTERIA, URINE AUTO 1+ (NEGATIVE); BILIRUBIN, URINE AUTO NEGATIVE (NEGATIVE); BLOOD, URINE BLOOD NEGATIVE (NEGATIVE); COLOR, URINE YELLOW (YELLOW); GLUCOSE, URINE (UA) AUTO NEGATIVE (NEGATIVE); KETONE, URINE AUTO NEGATIVE (NEGATIVE); LEUKOCYTE ESTERASE, URINE AUTO NEGATIVE (NEGATIVE); MUCUS, URINE SMALL (NEGATIVE); NITRITE, URINE AUTO NEGATIVE (NEGATIVE); PROTEIN, URINE AUTO NEGATIVE (NEGATIVE); RBC, URINE AUTO 2 /HPF (0-3); SQUAMOUS EPITHELIAL CELL UR AU 0 /HPF (0-6); UROBILINOGEN, URINE AUTO 0.2 mg/dL (0.0-2.0); WBC, URINE AUTO 0 /HPF (0-3)
[2020-08-05 11:38] LABS: INR 1.05; PROTHROMBIN TIME 13.9 SECONDS (12.5-14.3)
[2020-08-05 14:47] LABS: BASO % 0.7 % (0.0-1.0); EOS # 0.5 10^3/uL (0.0-0.5); EOS % 7.7 % (0.0-3.0); HEMATOCRIT 37.1 % (36.0-47.0); HEMOGLOBIN 12.3 g/dl (12.0-15.5); LYMPH # 2.1 10^3/uL (1.5-5.0); LYMPH % 36.5 % (24.0-44.0); MEAN CORPUSCULAR HEMOGLOBIN 36.2 pg (27.0-33.0); MEAN CORPUSCULAR HGB CONC 33.2 g/dl (32.0-36.5); MEAN CORPUSCULAR VOLUME 109.1 fl (80.0-96.0); MONO # 0.6 10^3/uL (0.0-0.8); MONO % 10.6 % (0.0-5.0); NEUTROPHILS # 2.6 10^3/uL (1.5-8.5); NEUTROPHILS % 44.3 % (36.0-66.0); PLATELET COUNT, AUTOMATED 142 10^3/uL (150-450); WHITE BLOOD COUNT 5.8 10^3/uL (4.0-10.0)
[2020-08-10 11:05] LABS: HEMATOCRIT 36.1 % (36.0-47.0); HEMOGLOBIN 12.1 g/dl (12.0-15.5); MEAN CORPUSCULAR HEMOGLOBIN 36.8 pg (27.0-33.0); MEAN CORPUSCULAR HGB CONC 33.5 g/dl (32.0-36.5); MEAN CORPUSCULAR VOLUME 109.7 fl (80.0-96.0); PLATELET COUNT, AUTOMATED 143 10^3/uL (150-450); RED BLOOD COUNT 3.29 10^6/uL (4.00-5.40); WHITE BLOOD COUNT 6.3 10^3/uL (4.0-10.0)
[2020-08-11 09:15] LABS: HEMATOCRIT 34.2 % (36.0-47.0); HEMOGLOBIN 11.6 g/dl (12.0-15.5); MEAN CORPUSCULAR HEMOGLOBIN 36.7 pg (27.0-33.0); MEAN CORPUSCULAR HGB CONC 33.9 g/dl (32.0-36.5); MEAN CORPUSCULAR VOLUME 108.2 fl (80.0-96.0); PLATELET COUNT, AUTOMATED 140 10^3/uL (150-450); RED BLOOD COUNT 3.16 10^6/uL (4.00-5.40)
[2020-08-14 01:01] LABS: MEAN CORPUSCULAR HEMOGLOBIN 36.9 pg (27.0-33.0); MEAN CORPUSCULAR HGB CONC 33.3 g/dl (32.0-36.5); MEAN CORPUSCULAR VOLUME 110.8 fl (80.0-96.0); PLATELET COUNT, AUTOMATED 145 10^3/uL (150-450); RED BLOOD COUNT 3.25 10^6/uL (4.00-5.40); WHITE BLOOD COUNT 5.8 10^3/uL (4.0-10.0)
[2020-09-05 12:38] LABS: ALBUMIN 3.3 GM/DL (3.2-5.2); BILIRUBIN,TOTAL 0.8 MG/DL (0.2-1.0); CALCIUM LEVEL 9.2 MG/DL (8.5-10.1); CK-MB VALUE MASS 3.1 NG/ML (<3.6); CREATININE FOR GFR 1.1 MG/DL (0.55-1.30); GLOMERULAR FILTRATION RATE 54.1 (>51); MB/CK RELATIVE INDEX 2.9 (< OR =4); POTASSIUM SERUM 4.3 MEQ/L (3.5-5.1); TOTAL PROTEIN 7.2 GM/DL (6.4-8.2)
[2020-09-05 12:45] LABS: VENOUS BASE EXCESS -0.8 (-2.0-2.0); VENOUS HCO3 25.2 MEQ/L (23.0-27.0); VENOUS O2 SATURATION 78.3 % (60.0-80.0); VENOUS PARTIAL PRESSURE CO2 46.4 mmHg (38.0-50.0); VENOUS PH 7.352 UNITS (7.330-7.430); VENOUS STANDARD HCO3 23.4 MEQ/L; VENOUS TOTAL CO2 26.6 MEQ/L (24.0-28.0)
[2020-09-06 18:58] LABS: ALBUMIN 3.2 GM/DL (3.2-5.2); BILIRUBIN,TOTAL 0.9 MG/DL (0.2-1.0); CALCIUM LEVEL 8.6 MG/DL (8.5-10.1); CREATININE FOR GFR 1.04 MG/DL (0.55-1.30); GLOMERULAR FILTRATION RATE 57.7 (>51); POTASSIUM SERUM 4.2 MEQ/L (3.5-5.1); THYROID STIMULATING HORMONE 2.59 uIU/ML (0.358-3.740); TOTAL PROTEIN 6.6 GM/DL (6.4-8.2)
[2020-09-13 04:12] LABS: ALBUMIN 3.1 GM/DL (3.2-5.2); BILIRUBIN,TOTAL 0.8 MG/DL (0.2-1.0); CALCIUM LEVEL 8.1 MG/DL (8.5-10.1); CREATININE FOR GFR 1.06 MG/DL (0.55-1.30); GLOMERULAR FILTRATION RATE 56.5 (>51); POTASSIUM SERUM 4.2 MEQ/L (3.5-5.1); TOTAL PROTEIN 6.5 GM/DL (6.4-8.2)
[2020-09-14 03:39] LABS: BLOOD UREA NITROGEN 13 MG/DL (7-18); CALCIUM LEVEL 8.2 MG/DL (8.5-10.1); CARBON DIOXIDE LEVEL 27 MEQ/L (21-32); CHLORIDE LEVEL 108 MEQ/L (98-107); GLOMERULAR FILTRATION RATE > 60.0 (>51); GLUCOSE, FASTING 113 MG/DL (70-100); POTASSIUM SERUM 4.3 MEQ/L (3.5-5.1); SODIUM LEVEL 142 MEQ/L (136-145)
[2020-09-14 11:26] LABS: ALT/SGPT 50 U/L (12-78); BILIRUBIN,TOTAL 0.7 MG/DL (0.2-1.0); BLOOD UREA NITROGEN 13 MG/DL (7-18); CALCIUM LEVEL 8.4 MG/DL (8.5-10.1); CARBON DIOXIDE LEVEL 29 MEQ/L (21-32); CHLORIDE LEVEL 109 MEQ/L (98-107); CREATININE FOR GFR 0.92 MG/DL (0.55-1.30); GLOMERULAR FILTRATION RATE > 60.0 (>51); GLUCOSE, FASTING 128 MG/DL (70-100); POTASSIUM SERUM 4.3 MEQ/L (3.5-5.1); SODIUM LEVEL 143 MEQ/L (136-145); TOTAL PROTEIN 6.5 GM/DL (6.4-8.2)
== END 2020-06-22 09:10 | disposition home or self-care (01) | DRG 443 ==
LOC: M ED 08:10 → M MS5PR 13:00
PROVIDERS: ADMIT Internal Medicine; ATTEND Internal Medicine
DX: K72.00 Acute and subacute hepatic failure without coma (principal); E78.5 Hyperlipidemia, unspecified; F32.9 Major depressive disorder, single episode, unspecified; F41.9 Anxiety disorder, unspecified; G47.00 Insomnia, unspecified; G43.909 Migraine, unspecified, not intractable, without status migrainosus; E66.9 Obesity, unspecified; E53.8 Deficiency of other specified B group vitamins; E55.9 Vitamin D deficiency, unspecified; I73.9 Peripheral vascular disease, unspecified; K74.60 Unspecified cirrhosis of liver; N32.81 Overactive bladder; Z79.82 Long term (current) use of aspirin; Z79.899 Other long term (current) drug therapy; K21.9 Gastro-esophageal reflux disease without esophagitis

== ENCOUNTER → 2020-08-03 | Outpatient (REF) | payer MEDICARE, MEDICAID ==
[~2020-08-03] MED LIST changes: +CYAN500T14 PO; -CYAN500T8 PO
[2020-08-03 18:44] LABS: APPEARANCE, URINE HAZY (CLEAR); BACTERIA, URINE AUTO 1+ (NEGATIVE); BILIRUBIN, URINE AUTO NEGATIVE (NEGATIVE); BLOOD, URINE BLOOD NEGATIVE (NEGATIVE); COLOR, URINE YELLOW (YELLOW); GLUCOSE, URINE (UA) AUTO NEGATIVE (NEGATIVE); KETONE, URINE AUTO NEGATIVE (NEGATIVE); LEUKOCYTE ESTERASE, URINE AUTO TRACE (NEGATIVE); NITRITE, URINE AUTO NEGATIVE (NEGATIVE); PROTEIN, URINE AUTO NEGATIVE (NEGATIVE); RBC, URINE AUTO 1 /HPF (0-3); SPECIFIC GRAVITY URINE AUTO 1.012 (1.002-1.035); SQUAMOUS EPITHELIAL CELL UR AU 0 /HPF (0-6); UROBILINOGEN, URINE AUTO 0.2 mg/dL (0.0-2.0); WBC, URINE AUTO 5 /HPF (0-3)
== END ==
LOC: M SFHCPLAZ 17:18
PROVIDERS: ATTEND Nurse Practitioner Family
DX: N39.0 Urinary tract infection, site not specified (principal)

== ENCOUNTER → 2020-10-11 | Outpatient (REF) | payer MEDICARE | LOC: EDSTATUS 13:46 | PROVIDERS: ATTEND Family Medicine | DX: Z20.828 Contact with and (suspected) exposure to other viral communicable diseases (principal) ==

== ENCOUNTER → 2020-10-20 | Outpatient (REF) | payer MEDICARE ==
[2020-10-20 17:16] LABS: BASO % 0.5 % (0.0-1.0); EOS # 0.4 10^3/uL (0.0-0.5); EOS % 6.4 % (0.0-3.0); HEMOGLOBIN 14.3 g/dl (12.0-15.5); LYMPH % 30.7 % (24.0-44.0); MEAN CORPUSCULAR HEMOGLOBIN 37.4 pg (27.0-33.0); MEAN CORPUSCULAR HGB CONC 34.9 g/dl (32.0-36.5); MEAN CORPUSCULAR VOLUME 107.3 fl (80.0-96.0); MONO # 0.7 10^3/uL (0.0-0.8); MONO % 10.6 % (0.0-5.0); NEUTROPHILS # 3.4 10^3/uL (1.5-8.5); NEUTROPHILS % 51.5 % (36.0-66.0); PLATELET COUNT, AUTOMATED 153 10^3/uL (150-450); RED BLOOD COUNT 3.82 10^6/uL (4.00-5.40); WHITE BLOOD COUNT 6.5 10^3/uL (4.0-10.0)
[2020-10-20 17:29] LABS: INR 1.08; PROTHROMBIN TIME 14.2 SECONDS (12.5-14.3)
[2020-10-20 17:30] LABS: PARTIAL THROMBOPLASTIN TIME 29.4 SECONDS (24.2-38.5)
[2020-10-20 17:34] LABS: HEMOGLOBIN A1c 6.3 %
[2020-10-20 17:55] LABS: ALBUMIN 3.1 GM/DL (3.2-5.2); ALT/SGPT 36 U/L (12-78); BLOOD UREA NITROGEN 13 MG/DL (7-18); CALCIUM LEVEL 8.7 MG/DL (8.5-10.1); CARBON DIOXIDE LEVEL 28 MEQ/L (21-32); CHLORIDE LEVEL 105 MEQ/L (98-107); CHOLESTEROL LEVEL 126 MG/DL (<200); CREATININE FOR GFR 0.95 MG/DL (0.55-1.30); FREE T4 0.93 NG/DL (0.76-1.46); GLOMERULAR FILTRATION RATE > 60.0 (>51); GLUCOSE, FASTING 120 MG/DL (70-100); HDL CHOLESTEROL 51 MG/DL (>40); IRON (FE) 193 UG/DL (50-170); LDL CHOLESTEROL 61 MG/DL (<100); NON-HDL-C 75 MG/DL; PERCENT SATURATION 48.3 % (13.2-45.0); POTASSIUM SERUM 3.9 MEQ/L (3.5-5.1); SODIUM LEVEL 141 MEQ/L (136-145); TOTAL IRON BINDING CAPACITY 400 UG/DL (250-450); TOTAL PROTEIN 6.5 GM/DL (6.4-8.2); TRIGLYCERIDES LEVEL 70 MG/DL (<150)
[2020-10-20 17:56] LABS: VITAMIN B12 LEVEL > 2000 PG/ML (247-911)
== END ==
LOC: M SFHCPLAZ 15:33
PROVIDERS: ATTEND Family Medicine
DX: E11.3299 Type 2 diabetes mellitus wit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, unspecified eye (principal); D50.9 Iron deficiency anemia, unspecified; E53.8 Deficiency of other specified B group vitamins; K72.90 Hepatic failure, unspecified without coma; Z79.899 Other long term (current) drug therapy; Z23 Encounter for immunization
CPT/HCPCS: 36415; 80053; 80061; 82105; 82140; 82172; 82607; 83010; 83036; 83550; 83883; 84439; 84443; 85025; 85046; 85610; 85730; 90682; G0008

== ENCOUNTER → 2020-10-21 | Outpatient (REF) | payer MEDICARE | PROVIDERS: ATTEND Internal Medicine | DX: Z20.828 Contact with and (suspected) exposure to other viral communicable diseases (principal) ==

== ENCOUNTER → 2020-10-26 | Outpatient (REF) | payer MEDICARE ==
[2020-10-27 09:18] LABS: INFLUENZA A AMPLIFICATION NEGATIVE (NEGATIVE); INFLUENZA B AMPLIFICATION NEGATIVE (NEGATIVE)
== END ==
PROVIDERS: ATTEND Internal Medicine
DX: K72.90 Hepatic failure, unspecified without coma (principal); Z20.828 Contact with and (suspected) exposure to other viral communicable diseases
CPT/HCPCS: 36415; 80076; 82140; 87502; U0003

== ENCOUNTER → 2020-10-26 | Outpatient (REF) | payer MEDICARE ==
[2020-10-26 10:47] LABS: ALBUMIN 2.9 GM/DL (3.2-5.2); BILIRUBIN,DIRECT 0.3 MG/DL (0.0-0.2); BILIRUBIN,TOTAL 0.9 MG/DL (0.2-1.0); TOTAL PROTEIN 6.2 GM/DL (6.4-8.2)
== END ==
PROVIDERS: ATTEND Family Medicine
DX: K72.90 Hepatic failure, unspecified without coma (principal)

== ENCOUNTER → 2020-10-31 | Outpatient (REF) | payer MEDICARE | PROVIDERS: ATTEND Internal Medicine | DX: Z20.828 Contact with and (suspected) exposure to other viral communicable diseases (principal) ==

== ENCOUNTER → 2020-11-02 | Outpatient (REF) | payer MEDICARE ==
[2020-11-02 11:35] LABS: ALBUMIN 3.2 GM/DL (3.2-5.2); BILIRUBIN,DIRECT 0.4 MG/DL (0.0-0.2); BILIRUBIN,TOTAL 1.1 MG/DL (0.2-1.0)
== END ==
PROVIDERS: ATTEND Family Medicine
DX: K72.90 Hepatic failure, unspecified without coma (principal)

== ENCOUNTER → 2020-11-07 | Outpatient (REF) | payer MEDICARE | PROVIDERS: ATTEND Internal Medicine | DX: Z20.828 Contact with and (suspected) exposure to other viral communicable diseases (principal) ==

== ENCOUNTER → 2020-11-14 | Outpatient (REF) | payer MEDICARE ==
[~2020-11-14] MED LIST changes: -AMIT25TA PO; +AMIT25TA17 PO; +GABA-282 PO; -GABA-843 PO; +METH-1164 PO; +METH-1165 PO; -METH1TAB40 PO; -METH750T2 PO
== END ==
PROVIDERS: ATTEND Internal Medicine
DX: Z11.52 Encounter for screening for COVID-19 (principal)

== ENCOUNTER → 2020-11-15 | Outpatient (CLI) | payer MEDICARE, MEDICAID ==
[~2020-11-15] MED LIST changes: +AMIT25TA PO; -AMIT25TA17 PO; -GABA-282 PO; +GABA-843 PO; -METH-1164 PO; -METH-1165 PO; +METH1TAB40 PO; +METH750T2 PO
--- NOTE | 2020-11-15 08:30 | REP ---
INDICATION: HEP ENCEPHALOPATHY COMPARISON: None. TECHNIQUE: Real time turner scale ultrasound examination using curved array transducer. FINDINGS: Liver demonstrates coarsened echotexture with poor through transmission suggesting hepatocellular disease. No focal hepatic lesion identified. The pancreas is normal in appearance by ultrasound evaluation. Patient is noted to be status post cholecystectomy with compensatory biliary ductal dilatation to the common bile duct at 8.6 mm. Right kidney is normal in reniform shape with increased central sinus fat and cortical thinning suggesting chronic medical renal disease. No hydronephrosis. Kidney measures 10.2 x 4.5 x 5.0 cm. No ascites in the visualized right upper quadrant. Visualized portions of the abdominal aorta are normal. IMPRESSION: 1. Coarsened hepatic echotexture suggesting hepatocellular disease without focal hepatic lesion identified. 2. Evidence for chronic medical renal disease. <Electronically signed by Jaycob Reed > 11/15/20 [id number]
== END ==
LOC: M RAD 07:53
PROVIDERS: ATTEND Family Medicine
DX: K72.90 Hepatic failure, unspecified without coma (principal); Z90.49 Acquired absence of other specified parts of digestive tract

== ENCOUNTER → 2020-11-17 | Outpatient (REF) | payer MEDICARE ==
[~2020-11-17] MED LIST changes: -AMIT25TA PO; +AMIT25TA17 PO; +GABA-282 PO; -GABA-843 PO
[2020-11-17 09:45] LABS: ALBUMIN 3.2 GM/DL (3.2-5.2); BILIRUBIN,TOTAL 0.9 MG/DL (0.2-1.0); CALCIUM LEVEL 8.8 MG/DL (8.5-10.1); CREATININE FOR GFR 1.08 MG/DL (0.55-1.30); GLOMERULAR FILTRATION RATE 55.3 (>51); TOTAL PROTEIN 6.3 GM/DL (6.4-8.2)
== END ==
PROVIDERS: ATTEND Family Medicine
DX: K72.90 Hepatic failure, unspecified without coma (principal)

== ENCOUNTER → 2020-11-21 | Outpatient (REF) | payer MEDICARE | PROVIDERS: ATTEND Internal Medicine | DX: Z20.822 Contact with and (suspected) exposure to COVID-19 (principal) ==

== ENCOUNTER → 2020-11-28 | Outpatient (REF) | payer MEDICARE | PROVIDERS: ATTEND Internal Medicine | DX: Z20.822 Contact with and (suspected) exposure to COVID-19 (principal) ==

== ENCOUNTER → 2020-12-05 | Outpatient (REF) | payer MEDICARE | PROVIDERS: ATTEND Internal Medicine | DX: Z20.822 Contact with and (suspected) exposure to COVID-19 (principal) ==

== ENCOUNTER → 2020-12-12 | Outpatient (REF) | payer MEDICARE | PROVIDERS: ATTEND Internal Medicine | DX: Z20.822 Contact with and (suspected) exposure to COVID-19 (principal) ==

== ENCOUNTER → 2020-12-19 | Outpatient (REF) | payer MEDICARE, MEDICAID ==
[~2020-12-19] MED LIST changes: +METH-1164 PO; +METH-1165 PO; -METH1TAB40 PO; -METH750T2 PO
== END ==
PROVIDERS: ATTEND Internal Medicine
DX: Z20.822 Contact with and (suspected) exposure to COVID-19 (principal)

== ENCOUNTER → 2020-12-26 | Outpatient (REF) | payer MEDICARE ==
[~2020-12-26] MED LIST changes: +ASPI-569 PO; -ASPI81TAEC PO; +BISA10EN PR; +CALC500T61 PO; +CLOP75TA2 PO; +DOCU100C17 PO; +DOK1CAP7 PO; +FLON1SPR; -FLON1SPR NARES; +GABA-1171 PO; +MELA1TAB3 PO; +MELA1TAB31 PO; -PEG1POW PO; +POLY17PO18 PO; +SENN18TA PO; +SENN8.6T28 PO; +SPIR50TA4 PO; -TRUL0.5I SQ; +VITA1TAB26 PO
[2020-12-26 15:55] LABS: BASO % 0.6 % (0.0-1.0); EOS # 0.4 10^3/uL (0.0-0.5); EOS % 4.8 % (0.0-3.0); HEMATOCRIT 43.6 % (36.0-47.0); HEMOGLOBIN 15.4 g/dl (12.0-15.5); LYMPH # 2.2 10^3/uL (1.5-5.0); LYMPH % 30.5 % (24.0-44.0); MEAN CORPUSCULAR HEMOGLOBIN 37.7 pg (27.0-33.0); MEAN CORPUSCULAR HGB CONC 35.3 g/dl (32.0-36.5); MEAN CORPUSCULAR VOLUME 106.9 fl (80.0-96.0); MONO # 0.8 10^3/uL (0.0-0.8); NEUTROPHILS # 3.8 10^3/uL (1.5-8.5); NEUTROPHILS % 52.7 % (36.0-66.0); PLATELET COUNT, AUTOMATED 167 10^3/uL (150-450); RED BLOOD COUNT 4.08 10^6/uL (4.00-5.40); WHITE BLOOD COUNT 7.2 10^3/uL (4.0-10.0)
[2020-12-26 16:17] LABS: HEMOGLOBIN A1c 7.4 %
[2020-12-26 16:21] LABS: ALBUMIN 3.6 GM/DL (3.2-5.2); ALT/SGPT 35 U/L (12-78); BLOOD UREA NITROGEN 14 MG/DL (7-18); CALCIUM LEVEL 9.4 MG/DL (8.5-10.1); CARBON DIOXIDE LEVEL 27 MEQ/L (21-32); CHLORIDE LEVEL 103 MEQ/L (98-107); CHOLESTEROL LEVEL 156 MG/DL (<200); CHOLESTEROL RISK RATIO 2.943 (<5); CREATININE FOR GFR 1.29 MG/DL (0.55-1.30); FERRITIN 38 NG/ML (8-252); GLUCOSE, FASTING 200 MG/DL (70-100); HDL CHOLESTEROL 53 MG/DL (>40); LDL CHOLESTEROL 87 MG/DL (<100); NON-HDL-C 103 MG/DL; POTASSIUM SERUM 4.3 MEQ/L (3.5-5.1); SODIUM LEVEL 140 MEQ/L (136-145); TOTAL PROTEIN 7.3 GM/DL (6.4-8.2); TRIGLYCERIDES LEVEL 78 MG/DL (<150)
[2020-12-26 16:29] LABS: VITAMIN B12 LEVEL > 2000 PG/ML (247-911)
== END ==
LOC: M SFHCPLAZ 13:35
PROVIDERS: ATTEND Family Medicine
DX: E78.2 Mixed hyperlipidemia (principal); K72.90 Hepatic failure, unspecified without coma; D50.9 Iron deficiency anemia, unspecified; E53.8 Deficiency of other specified B group vitamins; Z79.899 Other long term (current) drug therapy
CPT/HCPCS: 36415; 80053; 80061; 82140; 82607; 82728; 83036; 85025; G0463

== ENCOUNTER → 2020-12-26 | Outpatient (REF) | payer MEDICARE, MEDICAID ==
[~2020-12-26] MED LIST changes: -ASPI-569 PO; +ASPI81TAEC PO; -BISA10EN PR; -CALC500T61 PO; -CLOP75TA2 PO; -DOCU100C17 PO; -DOK1CAP7 PO; -FLON1SPR; +FLON1SPR NARES; +PEG1POW PO; -POLY17PO18 PO; -SENN18TA PO; -SENN8.6T28 PO; +TRUL0.5I SQ; -VITA1TAB26 PO
== END ==
PROVIDERS: ATTEND Internal Medicine
DX: Z20.822 Contact with and (suspected) exposure to COVID-19 (principal)

== ENCOUNTER → 2021-01-02 | Outpatient (REF) | payer MEDICARE | PROVIDERS: ATTEND Internal Medicine | DX: Z20.822 Contact with and (suspected) exposure to COVID-19 (principal) ==

== ENCOUNTER 2021-01-03 15:38 | Inpatient (IN) | payer MEDICARE ==
[~2021-01-03] VITALS: Ht 157.5 cm; Wt 90.4 kg
[~2021-01-03 15:38] MED LIST changes: +ASPI-569 PO; -ASPI81TAEC PO; -GABA-1171 PO; -MELA1TAB3 PO; -MELA1TAB31 PO; -PEG1POW PO; +POLY17PO18 PO; -SPIR50TA4 PO
[2021-01-03] MEDS ORDERED: NYST1POW9 TOP (16:18)
[2021-01-03] MEDS ORDERED: GABA-1171 PO (16:18)
[2021-01-03] MEDS ORDERED: MELA1TAB3 PO (16:18)
[2021-01-03] MEDS ORDERED: SPIR50TA4 PO (16:18)
[2021-01-03] MEDS ORDERED: OXYB5TAB10 PO (16:18)
[2021-01-03] MEDS ORDERED: MELA1TAB31 PO (16:19)
--- NOTE | 2021-01-03 16:25 | REP ---
INDICATION: AMS. COMPARISON: Comparison head CT studies are from June 17, 2020 and March 16, 2020.. TECHNIQUE: Helical scanning is acquired. 5 mm axial images were reformatted. Coronal MPR images were generated. FINDINGS: Bone window settings demonstrate an intact bony calvarium. There is no evidence of skull fracture or incidental bony calvarial lesion. The visualized paranasal sinuses appear clear. No intraorbital abnormality is seen. On soft tissue window setting images; the lateral, third, and fourth ventricles are normal in size and position. Finch-white differentiation pattern is normal above and below the tentorium. There are is no evidence of intracranial hemorrhage. No mass, edema, infarction, or midline shift is seen. No extra-axial fluid collection is appreciated. There are mild small vessel atherosclerotic changes unchanged from comparison studies. IMPRESSION: Mild small vessel changes. Findings unchanged. No acute intracranial abnormality.. <Electronically signed by Mehran Clarke > 01/03/21 [id number]
--- NOTE | 2021-01-03 16:27 | REP ---
INDICATION: Altered Mental Status. COMPARISON: March 09, 2020. TECHNIQUE: Portable upright AP chest radiograph. FINDINGS: The patient is rotated somewhat to the right. The lungs are symmetrically aerated and appear clear. Monitoring electrodes are seen. The heart is mildly prominent unchanged. Pulmonary vasculature is not increased. The pleural angles are sharp. No acute bony abnormality is seen.. IMPRESSION: No active disease. <Electronically signed by Mehran Clarke > 01/03/21 [id number]
[2021-01-03 16:35] LABS: BASO # 0.1 10^3/uL (0.0-0.2); BASO % 0.7 % (0.0-1.0); EOS # 0.4 10^3/uL (0.0-0.5); EOS % 4.9 % (0.0-3.0); HEMATOCRIT 43.1 % (36.0-47.0); HEMOGLOBIN 15.1 g/dl (12.0-15.5); LYMPH # 2.3 10^3/uL (1.5-5.0); LYMPH % 30.7 % (24.0-44.0); MEAN CORPUSCULAR HEMOGLOBIN 37.5 pg (27.0-33.0); MEAN CORPUSCULAR VOLUME 106.9 fl (80.0-96.0); MONO # 0.8 10^3/uL (0.0-0.8); MONO % 10.6 % (2.0-8.0); NEUTROPHILS % 52.6 % (36.0-66.0); PLATELET COUNT, AUTOMATED 184 10^3/uL (150-450); RED BLOOD COUNT 4.03 10^6/uL (4.00-5.40); WHITE BLOOD COUNT 7.6 10^3/uL (4.0-10.0)
--- OUTSIDE RECORDS SUMMARY | 2021-01-03 16:55 | CCD ---
Author Author [facility] Organization [facility] Address Unknown Phone Unavailable Care Team Providers Care Formwork Carpenter Name Role Phone Andrew Beck Unavailable PROBLEMS Type Condition ICD9-CM Code TRI59-NU Code Onset Dates Condition S tatus W/U Status Risk SNOMED Code Notes Problem Breast cancer screening Z12.39 Active confirmed 761252604 Problem IBS (irritable bowel syndrome) K58.9 Active confir med 00802179 Problem Recurrent UTI N39.0 Active confirmed 265748 001 Problem Coronary artery disease invo lving [place] coronary artery of [place] heart without angina pectoris I25.10 Active confirmed 460406 8385741 Problem Obesity E66.9 Active confirmed 667509136 Problem Gastroesophageal reflux disease with esophagitis K 21.0 Active confirmed 573858002 Problem Osteoarthritis of spine with radiculopathy, cervical regio n M47.22 Active confirmed 390677613 Problem Keratoconjunctivitis sicca M35.01 Active confirmed 661250633 Problem Allergic rhinitis, unspecified J30.9 Active confir med 60561693 Problem Hepatic encephalopathy K72.90 Active confirmed 48325320 Problem 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 E11.329 Active confirmed 36218974 2 Problem Neurogenic bladder N31.9 Active confirmed 3 75556596 Problem Recurrent candidiasis of vagina B37.3 Active confi rmed 617136908 Problem Chronic depression F32.9 Active confirmed 1 22746493 Problem Migraine without aura and without status migrain osus, not intractable G43.009 Active confirmed 206966283 Problem JETHRO (obstructive sleep apnea) G47.33 Active confirm ed 11888136 Problem Hx of colonic polyp Z86.010 Active confirmed 221180676 Problem Ataxia R27.0 Active confirmed 69457209 Problem DJD (degenerative joint disease), lumbar M47.816 Active confirmed 366009537 Problem Overactive bladder N32.81 Active confirmed 2 58101585 Problem Vitamin B12 deficiency E53.8 Active confirmed 385240232 Problem CHRISTIANSEN (nonalcoholic steatohepatitis) K75.81 Acti ve confirmed 543972825 Problem Vitamin D deficiency, unspecified E55.9 Active con firmed 65255377 Problem Osteoarthritis of spine with radiculopathy, lumbar region M47.26 Active confirmed 622755409 Problem Mixed hyperlipidemia E78.2 Active confirmed 764931829 Problem Intertriginous candidiasis B37.2 Active confirmed 406891989 Problem Cervical cancer screening Z12.4 Active confirmed 312550798 Problem Opioid use disorder F11.99 Active confirmed 8232975 Problem End stage liver disease K72.90 Active confirmed 637712663 Problem Venous insufficiency I87.2 Active confirmed 81247890 Problem Insomnia disorder with non-sleep disorder mental comorbidi ty G47.00 Active confirmed 56201600 Problem S/P gastric bypass Z98.84 Active confirmed 6 57975780 Problem Primary insomnia F51.01 Active confirmed 397 2004 Problem Agitation R45.1 Active confirmed 674356085 Problem Chronic diastolic congestive heart failure I50.32 Active confirmed 363963042 Problem Other ascites R18.8 Active confirmed 875052 000 Problem Iron deficiency anemia, unspecified iron deficiency an emia type D50.9 Active confirmed 47169278 ALLERGIES Allergen (clinical drug ingredient) Drug/Non Drug Allergy do cumented on EMR Reaction Allergy Type Onset Date Status Latex (for allergy use only) Rash Drug Allergy Active ciprofloxacin Cipro(NDC Code:[address]-99) Anaphylaxis Drug Allergy Active metformin lactic acidosis Non Drug Allergy Act judith fluconazole Diflucan(NDC Code:[address]-98) hives Drug Allergy Active ENCOUNTERS from 1961 to 2020-12-30 Encounter Location Date Provider Diagnosis [facility] [place] [address] [place] [address] Dec, 021 Andrew Beck IMMUNIZATIONS Vaccine Route Administration Date Status Influenza 18 yrs & older Flublok IM Intramuscular Oct 20, 2020 Administered Influenza 18 yrs & older Flublok IM Intramuscular Sep 04, 2019 Administered Influenza 18 yrs & older Flublok IM Intramuscular Nov 20, 2018 Administered Influenza 6mo & up Fluzone IM Intramuscular Aug 01, 2015 Admi nistered Influenza 6mo & up Fluzone IM Intramuscular Aug 02, 2014 Admi nistered Influenza 6mo & up Fluzone IM Intramuscular Sep 17, 2013 Admi nistered COVID-19 dose #1 given elsewhere Unspecified IM Intramuscular Ja 2020 Administered Influenza 6mo & up Fluzone IM Intramuscular Aug 29, 2012 Admi nistered COVID-19 dose #2 given elsewhere Unspecified IM Intramuscular Fe b 2020 Administered Influenza 6mo & up Fluzone IM Intramuscular Oct 29, 2011 Admi nistered Influenza 6mo & up Fluzone IM Intramuscular Sep 04, 2010 Admi nistered SOCIAL HISTORY Tobacco Use: Social History Observation Description Date Details (start date - stop date) Former Smoker Sex Assigned At : Social History Observation Description Sex Assigned At Unknown Education: Question Answer Notes Level of Education: High School Audit Question Answer Notes Total Score: 0 Interpretation: Alcohol Education Language: Question Answer Notes Languages spoken: Turkish Taoist: Question Answer Notes [employer] Sexual Hx: Question Answer Notes Had sex in the last 12 months (vaginal, oral, or anal)? No Have you ever had an STD? No Drug and Alcohol Question Answer Notes Total Score: 0 Interpretation: No problems reported Alcohol Screening: Question Answer Notes Did you have a drink containing alcohol in the past year? No Points 0 Interpretation Negative BMI Care Goal Follow-Up Question Answer Notes Above Normal BMI Follow-Up Giving encouragement to exercise Tobacco Use: Question Answer Notes Are you a: former smoker former smoker, smoke d for 20 years 1PPD REASON FOR REFERRAL No Information VITAL SIGNS No information MEDICATIONS Medication SIG (Take, Route, Frequency, Duration) Notes Start Da te End Date Status Miconazole 3 200 MG 1 suppository at bedtime Vag inal QDx 3 days with yeast infection symptoms for 3 day(s) Dec, Active Rifaximin 200 MG 2 tablet Orally bid for 90 day(s) Active Spironolactone 50 MG 1 tablet Orally bid for 90 day(s) Jan, Active Tums 500 MG 1 tablet Orally bid Acti ve Humidifier - as directed DX: J30.9 Daily for 99 months Jan, Active Lactulose 10 GM/15ML 30 ml Orally qid for 90 day(s) Active Depend Underwear Large Dx: 596.54 as directed _N31.9 F our times a day for 30 days Active Nystatin 144156 UNIT/GM 1 application to affected ar ea Externally Twice a day x 5 days to umbilidcus rash flare for 30 day(s) Active Omeprazole 40mg 40 mg 1 tablet by mouth AC bid for 30 day(s) Active Vitamin B-12 500 MCG 1 tablet Orally Once a day for 30 day(s) Active Oxybutynin Chloride 5 MG 1/2 tablet Orally Twice a day for 90 da y(s) Dec, Active May have ___ bed side rail _ once daily for 99 months 26 J , 2015 Active Fluticasone Propionate 50 MCG/ACT 2 sprays in each nos tril Nasally every morning for 90 day(s) Active Catheter straight disposable straight # 14 Fr catheter 10 per day for 30 day(s) Active Trulicity 1.5 MG/0.5ML as directed Subcutaneous every 7 days for 30 day(s) Active Gabapentin 100 MG 1 capsule Orally three times daily for pain Nov, Active Restasis 0.05 % 1 gtt OU Ophthalmic Twice a day Active One Touch Ultra Test Strips - 1 subcutaneously Twice a day 2 50.01 for 30 day(s) Active One Touch Ultra 2 Lancet - 1 subcutaneously Twice a day DX 2 50.01 for 30 day(s) Active Duloxetine HCl 60 MG 1 capsule Orally Twice a day for 90 day(s) Active Rizatriptan Benzoate 10 mg 1 tablet as needed one time Orally Once a day as needed Active Rolling Walker 1 with 4 wheels and a seat DX: M47.22/ M47.816 Daily for 99 months Nov, Active Furosemide 20 MG 1 tablet Orally every morning for 90 day(s) Active EQL Miconazole 3 200 & 2 MG (9GM) as directed Vaginal Daily for 3 days May, Active Voltaren 1 % 4 gms to cervical/lumbar spi ne Transdermal Four times a day ` for 30 day(s) Active Vitamin D3 400 UNIT 1 capsules Orally bid for 90 day(s) Active Pen [place] 03/26" 31G X 8 MM 1 needle subcutaneous Wee get c pen ICD E11.9 for 90 day(s) Apr, Active BusPIRone HCl 30 MG 1 tablet Orally Twice a day for 90 day(s) Active PROCEDURES No Information RESULTS No Results REASON FOR VISIT omeprazole order/stop Vit B12 MEDICAL (GENERAL) HISTORY Type Description Date Medical History anemia secondary to B12 defi ciency and chronic kidney disease//chronic macrocytosis s anemia- 03/1999 MCV 106 Medical History T2DM insulin requiring-01/2016 SPECT-low risk-Semajmay Medical History neurogenic bladder status po st laminectomy -patient performs clean intermittent self catheterization/recurrent UTI Medical History DJD lumbosacral spine with s econdary bilateral lower extremity radiculopathy-November 2011 NCS-moderate chronic left L5/S1 radiculopathy, mild chronic right L5/S1 radiculopathy-[facility] intact L4/5 fusion s CCS nor NFS Medical History NAFLD Medical History IBS, mixed type Medical History obesity, morbid status post gastric bypass 2004 at [facility], Dr. Case Medical History dyspepsia/GERD/ho jejunal ul cer-WNL REYGJ anatomy,esophagus, jejunum-10/30/19 EGD-R Medical History vitamin D deficiency Medical History chronic intertriginous candidiasis Medical History CKD stage III Medical History mild left carpal tunnel synd alvarez and left ulnar neuropathy at elbow by November 2011 NCS-[facility] Medical History allergic rhinitis/sinusitis, chronic-06/12 013 - zone 1 panel Medical History vitamin D deficiency Medical History tubular adenoma by colonosco py 02/2015-Berg10/30/19-dim tubular a-R Medical History cervical DJD s/p C4-6 ACDF 08/10/15-[place] Medical History minimal CAD-20% RCA stenosis , LVEF 60% by 02/02/16 [id number] [place] Medical History Tyrer Cuzick score 8.83 % Surgical History cholecystectomy Surgical History back surgery Surgical History gastric bypass 2003 Surgical History colonoscopy/EGD 2014 Surgical History appendectomy Surgical History C4-6 [id number]-[id number] 08/10/15 Surgical History L3-S1 PDF, L4/5 [facility]body cage-[facility] 07/24/16 Surgical History L femoral neck fracture s/p fall s/p IM nail placement-Dr. Sun-Upsate 07/26/16 Hospitalization History spine 08/17/17-08/30/17 Hospitalization History R humeral mid shaft communit ed fracture sp mechanical fall [facility]OS[facility]-[place] started by Dr. Phillips 03/20/18-03/25/18 Hospitalization History [facility] for re[facility] 03/25-05/28 Hospitalization History acute HE c 2 ataxia/falls-+l actulose, rifax; ami, metho, zonis were held and claus decreased 09/07-09/17/18 Hospitalization History [facility] 2 HE 2 non-compliance c lactulose/polypharmacy-12/03 UCX NG, BCX2 NG, NH4 101 on admission (84 at [place]), fall during hosp 2 [place]-CT head/CX sp/LLE s fx 12/03- Hospitalization History hepatic decompensation-diure sed 10L, initial CT AP c ascites, but nothing to drain 2D later by para, BCX2 NG, + tera 100 BID 01/22- Hospitalization History [facility] 2 acute hepatic encephal opathy-NH4 on DOA 65, DOD 75!, CT AP/head, CXR NAD, BCX2 NG, -UA, no med changes made [place] 03/09- Goals Section No Information Health Concerns No Information MEDICAL EQUIPMENT No Information MENTAL STATUS No Information FUNCTIONAL STATUS No Information ASSESSMENTS No Information PLAN OF TREATMENT Medication Medication Name Sig Start Date Stop Date Voltaren 1 % 4 gms to cervical/lumbar spi ne Transdermal Four times a day ` for 30 day(s) BusPIRone HCl 30 MG 1 tablet Orally Twice a day for 90 day(s) Catheter straight disposable straight # 14 Fr catheter 10 per day for 30 day(s) Vitamin D3 400 UNIT 1 capsules Orally bid for 90 day(s) Trulicity 1.5 MG/0.5ML as directed Subcutaneous every 7 days for 30 day(s) Rifaximin 200 MG 2 tablet Orally bid for 90 day(s) One Touch Ultra Test Strips - 1 subcutaneously Twice a day 2 50.01 for 30 day(s) Tums 500 MG 1 tablet Orally bid Lactulose 10 GM/15ML 30 ml Orally qid for 90 day(s) Nystatin 292979 UNIT/GM 1 application to affected ar ea Externally Twice a day x 5 days to umbilidcus rash flare for 30 day(s) Restasis 0.05 % 1 gtt OU Ophthalmic Twice a day Rizatriptan Benzoate 10 mg 1 tablet as needed one time Orally Once a day as needed Oxybutynin Chloride 5 MG 1/2 tablet Orally Twice a day for 9 0 day(s) Dec, Fluticasone Propionate 50 MCG/ACT 2 sprays in each nos tril Nasally every morning for 90 day(s) Furosemide 20 MG 1 tablet Orally every morning for 90 day(s) Spironolactone 50 MG 1 tablet Orally bid for 90 day(s) 30 Jan, 020 Omeprazole 40mg 40 mg 1 tablet by mouth AC bid for 30 day(s) One Touch Ultra 2 Lancet - 1 subcutaneously Twice a day DX 2 50.01 for 30 day(s) Miconazole 3 200 MG 1 suppository at bedtime Vag inal QDx 3 days with yeast infection symptoms for 3 day(s) Dec, Duloxetine HCl 60 MG 1 capsule Orally Twice a day for 90 day(s) Gabapentin 100 MG 1 capsule Orally three times daily for pain Nov, Next Appt Details Provider Name:Andrew Beck, 2021-02-16 1 1:00:00 AM, [address] [place], [address], Insurance Providers Payer Name Payer Address Payer Phone Insured Name Patient Relati onship to Insured Coverage Start Date Coverage End Date MEDICARE Part A and B [address] [facility] [phone] SANIYA EVANS [facility] [address] [facility] [phone] SANIYA EVANS
--- OUTSIDE RECORDS SUMMARY | 2021-01-03 16:55 | CCD ---
Author Author [facility] Organization [facility] Address Unknown Phone Unavailable Care Team Providers Care Medical Office Worker Name Role Phone Andrew Beck Unavailable PROBLEMS Type Condition ICD9-CM Code IBS99-XI Code Onset Dates Condition S tatus W/U Status Risk SNOMED Code Notes Problem Breast cancer screening Z12.39 Active confirmed 291380543 Problem IBS (irritable bowel syndrome) K58.9 Active confir med 83919109 Problem Recurrent UTI N39.0 Active confirmed 892436 001 Problem Coronary artery disease invo lving [place] coronary artery of [place] heart without angina pectoris I25.10 Active confirmed 310814 8868513 Problem Obesity E66.9 Active confirmed 262055220 Problem Gastroesophageal reflux disease with esophagitis K 21.0 Active confirmed 370507791 Problem Osteoarthritis of spine with radiculopathy, cervical regio n M47.22 Active confirmed 188396708 Problem Keratoconjunctivitis sicca M35.01 Active confirmed 229624871 Problem Allergic rhinitis, unspecified J30.9 Active confir med 47484326 Problem Hepatic encephalopathy K72.90 Active confirmed 21165234 Problem 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 E11.329 Active confirmed 06593344 2 Problem Neurogenic bladder N31.9 Active confirmed 3 90734172 Problem Recurrent candidiasis of vagina B37.3 Active confi rmed 833666292 Problem Chronic depression F32.9 Active confirmed 1 69038755 Problem Migraine without aura and without status migrain osus, not intractable G43.009 Active confirmed 732673632 Problem JETHRO (obstructive sleep apnea) G47.33 Active confirm ed 33980236 Problem Hx of colonic polyp Z86.010 Active confirmed 082275657 Problem Ataxia R27.0 Active confirmed 28142146 Problem DJD (degenerative joint disease), lumbar M47.816 Active confirmed 263391585 Problem Overactive bladder N32.81 Active confirmed 2 89039534 Problem Vitamin B12 deficiency E53.8 Active confirmed 399877315 Problem CHRISTIANSEN (nonalcoholic steatohepatitis) K75.81 Acti ve confirmed 728986971 Problem Vitamin D deficiency, unspecified E55.9 Active con firmed 61564854 Problem Osteoarthritis of spine with radiculopathy, lumbar region M47.26 Active confirmed 918100027 Problem Mixed hyperlipidemia E78.2 Active confirmed 641434859 Problem Intertriginous candidiasis B37.2 Active confirmed 855856416 Problem Cervical cancer screening Z12.4 Active confirmed 596759056 Problem Opioid use disorder F11.99 Active confirmed 1809706 Problem End stage liver disease K72.90 Active confirmed 236447323 Problem Venous insufficiency I87.2 Active confirmed 21363067 Problem Insomnia disorder with non-sleep disorder mental comorbidi ty G47.00 Active confirmed 07130554 Problem S/P gastric bypass Z98.84 Active confirmed 6 41998339 Problem Primary insomnia F51.01 Active confirmed 397 2004 Problem Agitation R45.1 Active confirmed 927187475 Problem Chronic diastolic congestive heart failure I50.32 Active confirmed 871500359 Problem Other ascites R18.8 Active confirmed 520320 000 Problem Iron deficiency anemia, unspecified iron deficiency an emia type D50.9 Active confirmed 02653435 ALLERGIES Allergen (clinical drug ingredient) Drug/Non Drug Allergy do cumented on EMR Reaction Allergy Type Onset Date Status Latex (for allergy use only) Rash Drug Allergy Active ciprofloxacin Cipro(NDC Code:[address]-07) Anaphylaxis Drug Allergy Active metformin lactic acidosis Non Drug Allergy Act judith fluconazole Diflucan(NDC Code:[address]-26) hives Drug Allergy Active ENCOUNTERS from 1961 to 2020-12-30 Encounter Location Date Provider Diagnosis [facility] [place] [address] [place] [address] Dec, 021 Andrew Beck IMMUNIZATIONS Vaccine Route [...] Education Language: Question Answer Notes Languages spoken: Chinese Religious: Question Answer Notes Religious 08 Confucianist Sexual Hx: Question Answer Notes Had sex [...] a day for 30 days Active Nystatin 232147 UNIT/GM 1 application to affected ar ea [...] Orally bid for 90 day(s) Active Pen Pyrites 03/26" 31G X 8 MM 1 needle subcutaneous Wee get c pen ICD E11.9 for 90 day(s) Apr, Active BusPIRone HCl 30 MG 1 tablet Orally Twice a day for 90 day(s) Active PROCEDURES No Information RESULTS No Results REASON FOR VISIT PA Rifaximin (Xifaxan) 200mg tablets, #360/90 MEDICAL (GENERAL) HISTORY Type Description Date Medical History anemia secondary to B12 defi ciency and chronic kidney disease//chronic macrocytosis s anemia- 03/1999 MCV 106 Medical History T2DM insulin requiring-01/2016 SPECT-low risk-Semaj Medical History neurogenic bladder status po st laminectomy -patient performs clean intermittent self catheterization/recurrent UTI Medical History DJD lumbosacral spine with s econdary bilateral lower extremity radiculopathy-November 2011 NCS-moderate chronic left L5/S1 radiculopathy, mild chronic right L5/S1 radiculopathy-[facility] MRI intact L4/5 fusion s CCS nor NFS Medical History NAFLD Medical History IBS, mixed type Medical History obesity, morbid status post gastric bypass 2004 at [facility], Dr. Case Medical History dyspepsia/GERD/ho jejunal ul cer-WNL REYGJ anatomy,esophagus, jejunum-10/30/19 EGD-R Medical History vitamin D deficiency Medical History chronic intertriginous candidiasis Medical History CKD stage III Medical History mild left carpal tunnel synd alvarez and left ulnar neuropathy at elbow by November 2011 NCS-[facility] Medical History allergic rhinitis/sinusitis, chronic-06/12 013 - zone 1 panel Medical History vitamin D deficiency Medical History tubular adenoma by colonosco py 02/2015-Berg10/30/19-dim tubular a-R Medical History cervical DJD s/p C4-6 ACDF 08/10/15-[place] Medical History minimal CAD-20% RCA stenosis , LVEF 60% by 02/02/16 [email or web address] [place] Medical History Tyrer Cuzick score 8.83 % Surgical History cholecystectomy Surgical History back surgery Surgical History gastric bypass 2003 Surgical History colonoscopy/EGD 2014 Surgical History appendectomy Surgical History C4-6 [id number]-Xhazufgdrv 08/10/15 Surgical History L3-S1 PDF, L4/5 [facility]body cage-[facility] 07/[facility]/16 Surgical History L femoral neck fracture s/p fall s/p IM nail placement-Dr. Sun-Upsate 07/26/16 Hospitalization History spine 08/17/17-08/30/17 Hospitalization History R humeral mid shaft communit ed fracture sp mechanical fall FOANGELA-[place] started by Dr. Phillips 03/20/18-03/25/18 Hospitalization History [facility] for re[facility] 03/25-05/28 Hospitalization History acute HE c 2 ataxia/falls-+l actulose, rifax; ami, metho, zonis were held and claus decreased 09/07-09/17/18 Hospitalization History [facility] 2 HE 2 non-compliance c lactulose/polypharmacy-12/03 UCX NG, BCX2 NG, NH4 101 [place] (84 [place]), fall during hosp 2 [place] head/CX sp/LLE s fx 12/03- Hospitalization History hepatic decompensation-diure sed 10L, initial CT AP c ascites, but nothing to drain 2D later by para, BCX2 NG, + tera 100 BID 01/22- Hospitalization History [facility] 2 acute hepatic encephal opathy-NH4 on DOA 65, DOD 75!, CT AP/head, CXR NAD, BCX2 NG, -UA, [place] med changes made [place] 03/09- Goals Section No Information Health Concerns [...] ml Orally qid for 90 day(s) Nystatin 115705 UNIT/GM 1 application to affected ar ea [...] Orally bid for 90 day(s) 30 Jan, Omeprazole 40mg 40 mg 1 tablet by [...] Name:Andrew Beck, 2021-02-16 1 1:00:00 AM, [address] [place], [address], Insurance Providers Payer Name Payer Address Payer Phone Insured Name Patient Relati onship to Insured Coverage Start Date Coverage End Date [facility] [address] [facility] [phone] SANIYA EVANS MEDICARE Part A and B [address] [facility] [id number] SANIYA EVANS
--- OUTSIDE RECORDS SUMMARY | 2021-01-03 16:55 | CCD | Summary of Care ---
Author Author [facility] Organization [facility] Address Unknown Phone Unavailable Care Team Providers Care Bisque Brusher Name Role Phone Andrew Beck MD PCP Reason for Referral * Diagnostic Radiology (Routine) Referred By Contact Referred To Contact Status Reason Specialty Diagnoses / Procedures Caesar Vale MD [address] [place] [address] Email: [email or web address] Open Radiology Diagnoses S/P lumbar fusion P rocedures MR Lumbar Spine without Contrast * Used Durable Medical Equipment (Routine) Referred By Contact Referred To Contact Status Reason Specialty Diagnoses / Procedures Caesar Vale MD [address] [place] [id number] Email: [email or web address] Authorized Diagnoses Closed fracture of twelfth thoracic vertebra, unspecified fracture morphology, initial encounter Scheduling Instructions [id number] TLSO - OTS Reason for Visit * Reason Comments Follow-up c spine pain Encounter Details Care Team Description Date Type Department Caesar Vale MD [address] [place] [address] [phone] S/P lumbar fusion (Primary Dx); Closed fracture of twelfth thoracic vertebra, unspecified fracture morphology, initial encounter 12/23/2020 Office Visit [facility] , [facility] [address] [phone] Allergies Comments Active Allergy Reactions Severity Noted Date blisters Ciprofloxacin Hives, Other 01/14/2015 (See Comments) 08/14/15 Pt tolerates miconazole supp ljk Fluconazole Hives 06/21/2015 Latex Hives 01/14/2015 unknown reaction, reported by nurse Quinolones Other (See 09/16/2019 Comments) [place] Extract Hives 08/01/2016 documented as of this encounter (statuses as of 01/02/2021) Medications End Date Status Medication Sig Dispensed Refills Start Date Active calcium-vitamin D Take 1 tablet 0 (OSCAL-500) 500-400 by mouth. MG-UNIT per tablet Active ASPIRIN LOW DOSE 81 MG EC TAKE ONE 0 08/12 tablet TABLET BY 6 MOUTH EVERY DAY Active Azelastine HCl (ASTEPRO) by Nasal 0 0.15 % SOLN route Active rizatriptan (MAXALT-GRINDER DRESSER) DISSOLVE 1 5 03/04 10 MG disintegrating TABLET BY 7 tablet MOUTH AT ONSET OF HEADACHE Active DULoxetine (CYMBALTA) 60 0 MG capsule 7 Active metformin (GLUCOPHAGE) 0 1000 MG tablet 7 Active busPIRone (BUSPAR) 30 MG 0 tablet 8 Active furosemide (LASIX) 20 MG 0 tablet 8 Active gabapentin (NEURONTIN) 0 800 MG tablet 8 Active omeprazole (PRILOSEC) 40 0 MG capsule 8 Active TRULICITY 1.5 MG/0.5ML 0 injection pen 1.5 mg/0.5 8 mL Active albuterol (PROVENTIL) 0 (2.5 MG/3ML) 0.083% 8 nebulizer solution Active XIFAXAN 200 MG tablet 0 9 Active potassium chloride 0 (K-DUR,KLOR-CON) 20 MEQ 9 dissolvable tablet Active oxyCODONE (ROXICODONE) 5 0 MG immediate release 9 tablet Active nitrofurantoin 0 (MACRODANTIN) 50 MG 9 capsule Active AMITIZA 24 MCG capsule 0 8 Active lactulose (CHRONULAC) 10 0 GM/15ML solution 9 Active RESTASIS 0.05 % 0 ophthalmic emulsion 9 Active Cholecalciferol (VITAMIN Take by mouth 3 06/26 D) 2000 units tablet daily 8 Active celecoxib (CELEBREX) 200 0 MG capsule 9 Active atorvastatin (LIPITOR) 20 0 MG tablet 9 Active baclofen (LIORESAL) 10 MG 0 tablet 9 Active ONETOUCH VERIO test strip TEST TWO 3 06/12 TIMES A DAY 8 Active ONETOUCH DELICA LANCETS USE TWO TIMES 3 33G MISC A DAY 8 Active LORazepam (ATIVAN) 1 MG 0 tablet 9 Active methocarbamol (ROBAXIN) 0 750 MG tablet 9 Active Calcium Carbonate Antacid Chew 1 tablet 0 500 MG Oral Tablet by Mouth Chewable (TUMS) daily Active Fluticasone Propionate 50 2 sprays by 0 MCG/ACT Nasal Suspension Nasal route (FLONASE) daily Active Vitamin B-12 100 MCG Oral Take 50 mcg 0 Tablet (CYANOCOBALAMIN) by mouth daily Active Cephalexin 250 MG Oral Take 250 mg 0 Capsule (KEFLEX) by mouth Four times daily Active Buprenorphine 5 MCG/HR 0 Transdermal Patch Weekly 9 (BUTRANS) Active Gabapentin 100 MG Oral 0 Capsule (NEURONTIN) 1 Active levoFLOXacin 500 MG Oral 0 Tablet (LEVAQUIN) 0 Active Potassium Chloride ER 10 0 MEQ Oral Tablet Extended 0 Release Active Spironolactone 100 MG 0 Oral Tablet (ALDACTONE) 1 documented as of this encounter (statuses as of 01/02/2021) Active Problems Problem Noted Date S/P lumbar fusion 08/02/2016 Closed intertrochanteric fracture of left femur 07/13 Decubitus ulcer of ankle, stage 2 08/02/2016 Obesity (BMI 30-39.9) 08/02/2016 Fall at home 08/01/2016 Decreased rectal sphincter tone 07/21/2016 UTI (urinary tract infection) 07/21/2016 Stenosis, spinal, lumbar 07/21/2016 Stenosis of cervical spine with myelopathy 6 Obesity, morbid, BMI 40.0-49.9 08/12/2015 S/P cervical spinal fusion 08/12/2015 Cervical stenosis of spinal canal 06/24/2015 Myelopathy of cervical spinal cord with cervical radi culopathy 06/24/2015 Anxiety Low back pain Depression Type 2 diabetes mellitus GERD (gastroesophageal reflux disease) Headache Hyperlipidemia Psychiatric diagnosis Neurogenic bladder Overview: self caths Type 2 diabetes mellitus without compli cation Low back pain with sciatica Acute cystitis without hematuria Unable to ambulate Gastroesophageal reflux disease without esophagitis documented as of this encounter (statuses as of 01/02/2021) Resolved Problems Problem Noted Date Resolved Date Inability to walk 07/21/2016 07/21/2016 Neck pain 06/21/2015 07/21/2016 Arthritis 07/21/2016 Chronic kidney disease 07/21/2016 documented as of this encounter (statuses as of 01/02/2021) Social History Date Tobacco Use Types Packs/Day Years Used Quit: 07/29/1995 Former Smoker Smokeless Tobacco: Never Used Drinks/Week oz/Week Comments Alcohol Use sober for 22 years No Sex Assigned at Date Recorded Not on file Date Recorded COVID-19 Exposure Response 12/23/2020 10:56 AM EST In the last month, have you been in contact with No / Unsure someone who was confirmed or suspected to have Coronavirus / COVID-19? documented as of this encounter Last Filed Vital Signs Not on filedocumented in this encounter Progress Notes * Caesar Vale MD - 12/23/2020 11:15 AM EST Please CC a copy of todays note to Patient Care Team: Andrew Beck MD as PCP - General (Family Medicine) Gissel Fabian MD (Neurology) Lopez Phillips MD (Orthopedic Surgery) Caden Malin (Psychiatry) Kayla Portillo LCSW (Cosmetics Machine Operator) Caesar Vale MD as Referring Physician (Orthopedic Surgery) Amalia Tolbert NP as Nurse Practitioner (Orthopedic Surgery) CHIEF COMPLAINT/ HISTORY of PRESENT ILLNESS: We are seeing Anastasia Evans in t he office today for follow-up evaluation. Patient was last seen back in 2019. Since her last visit, patient has been having increasing mid and low ba ck pain. Patient states that her pain levels currently 7-8 out of 10, sharp and worse with prolonged activities. MEDICATIONS: Current Outpatient Medications: albuterol (PROVENTIL) (2.5 MG/3ML) 0.083% nebulizer solution, , Disp: , Rfl: AMITIZA 24 MCG capsule, , Disp: , Rfl: ASPIRIN LOW DOSE 81 MG EC tablet, TAKE ONE TABLET BY MOUTH EVERY DAY, Di sp: , Rfl: 0 atorvastatin (LIPITOR) 20 MG tablet, , Disp: , Rfl: Azelastine HCl (ASTEPRO) 0.15 % SOLN, by Nasal route, Disp: , Rfl: baclofen (LIORESAL) 10 MG tablet, , Disp: , Rfl: Buprenorphine 5 MCG/HR Transdermal Patch Weekly (BUTRANS), , Disp: , Rfl : busPIRone (BUSPAR) 30 MG tablet, , Disp: , Rfl: Calcium Carbonate Antacid 500 MG Oral Tablet Chewable (TUMS), Chew 1 tab let by Mouth daily, Disp: , Rfl: calcium-vitamin D (OSCAL-500) 500-400 MG-UNIT per tablet, Take 1 tablet by mouth., Disp: , Rfl: celecoxib (CELEBREX) 200 MG capsule, , Disp: , Rfl: Cephalexin 250 MG Oral Capsule (KEFLEX), Take 250 mg by mouth Four times daily, Disp: , Rfl: Cholecalciferol (VITAMIN D) 2000 units tablet, Take by mouth daily, Disp : , Rfl: 3 DULoxetine (CYMBALTA) 60 MG capsule, , Disp: , Rfl: Fluticasone Propionate 50 MCG/ACT Nasal Suspension (FLONASE), 2 sprays b y Nasal route daily, Disp: , Rfl: furosemide (LASIX) 20 MG tablet, , Disp: , Rfl: gabapentin (NEURONTIN) 800 MG tablet, , Disp: , Rfl: Gabapentin 100 MG Oral Capsule (NEURONTIN), , Disp: , Rfl: lactulose (CHRONULAC) 10 GM/15ML solution, , Disp: , Rfl: LORazepam (ATIVAN) 1 MG tablet, , Disp: , Rfl: metformin (GLUCOPHAGE) 1000 MG tablet, , Disp: , Rfl: methocarbamol (ROBAXIN) 750 MG tablet, , Disp: , Rfl: nitrofurantoin (MACRODANTIN) 50 MG capsule, , Disp: , Rfl: omeprazole (PRILOSEC) 40 MG capsule, , Disp: , Rfl: ONETOUCH DELICA LANCETS 33G MISC, USE TWO TIMES A DAY, Disp: , Rfl: 3 ONETOUCH VERIO test strip, TEST TWO TIMES A DAY, Disp: , Rfl: 3 oxyCODONE (ROXICODONE) 5 MG immediate release tablet, , Disp: , Rfl: potassium chloride (K-DUR,KLOR-CON) 20 MEQ dissolvable tablet, , Disp: , Rfl: Potassium Chloride ER 10 MEQ Oral Tablet Extended Release, , Disp: , Rfl : RESTASIS 0.05 % ophthalmic emulsion, , Disp: , Rfl: rizatriptan (MAXALT-GRINDER DRESSER) 10 MG disintegrating tablet, DISSOLVE 1 TABLET BY MOUTH AT ONSET OF HEADACHE, Disp: , Rfl: 5 Spironolactone 100 MG Oral Tablet (ALDACTONE), , Disp: , Rfl: TRULICITY 1.5 MG/0.5ML injection pen 1.5 mg/0.5 mL, , Disp: , Rfl: Vitamin B-12 100 MCG Oral Tablet (CYANOCOBALAMIN), Take 50 mcg by mouth daily, Disp: , Rfl: XIFAXAN 200 MG tablet, , Disp: , Rfl: levoFLOXacin 500 MG Oral Tablet (LEVAQUIN), , Disp: , Rfl: ALLERGIES: Allergies Allergen Reactions Ciprofloxacin Hives and Other (See Comments) blisters Diflucan [Fluconazole] Hives 08/14/15 Pt tolerates miconazole supp ljk Latex Hives Quinolones Other (See Comments) unknown reaction, reported by nurse [place] Extract Hives Patient denies any constitutional symptoms or problems with overflow incontinenc e of bladder. PHYSICAL EXAMINATION: Vital Signs: There were no vitals taken for this visit. , There is no height or weight on file to calculate BMI., Respiartory rate/effort:18/normal General : She is well groomed Mood/Affect/Hearing: Normal/Normal/Normal Memory/Judgement/Insight: Normal/Normal/Normal Orientation: alert and oriented x 3 Skin/Incision/wound: unremarkable Gait : Patient ambulates with a walker. Spine and Extremity (Palpation/Strength/Motion/Stabilty): No evidence of gross s nathalie instability noted on exam. Paraspinal muscle strength is within normal li mits. Discomfort noted with thoracolumbar range of motion and paraspinal muscle palpation. DIAGNOSTIC IMAGING/STUDIES: X-ray of the lumbar spine today demonstrates prior s urgery at L3-4 with intact alignment. New T12 fracture is noted that was not pr esent on CT scan or x-ray in 2019. All images are visualized and reviewed with patient in the office today. ASSESSMENT/PLAN: 60-year-old female with history of worsening low back pain. Sh gennaro has had history of previous L3-4 surgery. T12 compression fracture is noted o n today's x-ray. I would like to proceed with updated MRI of the lumbar spine t o further assess the soft tissue and neural elements. We have given her a TLSO brace to wear when she is out of bed. I personally supervised the application/f itting of the brace for the treatment of the above mentioned spinal fracture. We will see her back after the MRI is complete to go over the results with her. We also will obtain x-rays of the lumbar spine 2 views on her follow-up paul holcomb. Patient states that she has been having urinary incontinence for last severa l months requiring multiple daily straight caths. She is is unclear of the etio logy. She plans to request for referral to urogynecology or her primary care pr ovider. Please note total time spent on the date of patient's encounter was 40 minutes. This includes lfyw-gj-ciba and lxa-uhuz-fu-face time including but not limited to 1.) obtaining and reviewing medical records /tests, 2.) charting and ordering medication/tests, and 3.) coordination of care. Caesar Vale MD [facility] Department of Orthopedic Surgery documented in this encounter Plan of Treatment Care Team Description Date Type Specialty Caesar Vale MD [address] [place] [address] [phone] 01/05/2021 Appointment Radiology Caesar Vale MD [address] [place] [address] [phone] 01/20/2021 Office Visit Orthopedic Surgery Caesar Vale MD [address] [place] [address] [phone] 09/29/2021 Office Visit Orthopedic Surgery Order Schedule Name Type Priority Associated Diag noses Expected: 12/23/2020, Expires: 2 MR Lumbar Spine without Imaging Routine S/P joseph mbar fusion Contrast Order Schedule Name Type Priority Associated Diag noses Ordered: 12/23/2020 TLSO - OTS Outpatient Routine Closed fracture of Referral twelfth thoracic vertebra, unspecified fracture morphology, initial encounter Health Maintenance Due Date Last Done Comments Lipid Disorder Screening 1961 MMR Vaccines (1 of 1 - 1962 Standard series) Varicella Vaccines (1 of 1962 2 - 2-dose childhood series) Pneumococcal Vaccine: 1967 Pediatrics (0 to 5 Years) and At-Risk Patients (6 to 64 Years) (1 of 1 - PPSV23) Diabetic Foot Exam 1979 Dilated Retinal Exam 1979 Urine Microalbumin 1979 Hepatitis B Vaccines (1 1980 of 3 - Risk 3-dose series) Cervical Cancer Screening 1982 5 years Breast Cancer Screening 2 2011 years Colon Cancer Screening 10 2011 yrs Hemoglobin A1c 01/18/2017 07/21/2016 DTaP,Tdap,and Td Vaccines 09/05/2017 08/08/2017 (2 - Td) Pneumococcal Vaccine: 65+ 2026 Years (1 of 1 - PPSV23) HIV Screening Completed 08/10/2015 Hepatitis C Screening (B. Completed 08/10/2015 [id number]) Influenza Vaccine Completed 10/20/2020, 09/04/2019, 11/20/2018, Additional history exists HIB Vaccines Aged Out No longer eligible based on patient's age to complete this topic Hepatitis A Vaccines Aged Out No longer eligibl e based on patient's age to complete this topic IPV Vaccines Aged Out No longer eligible based on patient's age to complete this topic documented as of this encounter Implants Device Identifier Shelf Expiration Date Model / Serial / L ot Implanted Type Area Manufactur er 03/14/2017 [id number] / [id number] / Putty Progenix 1cc - N/A: Spine MEDTRONIC [id number] Cervical INC Implanted: Qty: 1 on 08/10/2015 by Caesar Vale MD at [facility] 12/27/2018 VG2C T57 / [id number] / Bone Cervical 7.22mm 5.75mm. - N/A: Spine LIFENE T [id number] Cervical TISSUE Implanted: Qty: 1 on 08/10/2015 by Caesar Lisa MD at OR [facility] 01/23/2020 VG2C T68 / [id number] / Bone Cervical [id number]. - N/A: Spine LIFENET [id number] Cervical TISSUE Implanted: Qty: 1 on 08/10/2015 by Caesar Lisa MD at OR [facility] 03/14/2017 [id number] / [id number] / Putty Progenix 1cc - N/A: Spine MEDTRONIC [id number] Cervical INC Implanted: Qty: 1 on 08/10/2015 by Caesar Vale MD at OR [facility] [id number] / / Plate Vision Elite 42mmatlantis - N/A: Spine MED TRONIC [id number] Cervical INC Implanted: Qty: 1 on 08/10/2015 by Caesar Vale MD at OR [facility] [id number] / / Screw Variable [id number] - [id number] N/A: Spine ME DTRONIC Implanted: Qty: 6 on 08/10/2015 by Cervical IN C Caesar Vale MD at OR [facility] [id number] / / Set Screw Alphatec - [id number] N/A: Back ALPHAT EC Implanted: Qty: 4 on 07/24/2016 by Caesar Vale MD at OR [facility] [id number] / / Phil Pre Cont 5.5 X 35mm - [id number] N/A: Back A LPHATEC Implanted: Qty: 2 on 07/24/2016 by Caesar Vale MD at OR [facility] [id number] / / Spacer Nvl Tl S Tpr 12mm - N/A: Back ALPHATEC [id number] Implanted: Qty: 1 on 07/24/2016 by Caesar Vale MD at OR [facility] 01/22/2019 [id number] / / [id number] Graft Nexoss 12cc. - [id number] N/A: Back ALPHAT EC Implanted: Qty: 1 on 07/24/2016 by Caesar Vale MD at OR [facility] 03/22/2019 [id number] / / [id number] Putty Bone 10cc Novabone - N/A: Back NOVABONE [id number] [id number] Implanted: Qty: 1 on 07/24/2016 by Caesar Vale MD at OR [facility] [id number] / / Screw Poly 8.5x45mm - [id number] N/A: Back ALPHA SURENDRA Implanted: Qty: 4 on 07/24/2016 by Caesar Vale MD at OR [facility] 03/24/2026 [id number] / / [id number] Intertan 10s 125d 10x38 Ltnail - Left: Femur JEET H + [id number] NEPHEW Implanted: Qty: 1 on 07/26/2016 by Joey Sun MD at OR [facility] 02/01/2026 [id number] / / [id number] Screw Kit Lag/Comp 75/70intertan - Left: Femur SM ITH + [id number] NEPHEW Implanted: Qty: 1 on 07/26/2016 by Joey Sun MD at OR [facility] 10/28/2025 [id number] / / [id number] Screw Trigen Lw Pro 5x40mm - Left: Femur ANDRADE + [id number] NEPHEW Implanted: Qty: 1 on 07/26/2016 by Joey Sun MD at OR [facility] documented as of this encounter Results * XRAY Lumbar Spine AP, Lateral, Flex & Extension (12/23/2020 11:11 AM EST) Specimen Impressions Performed At IMPRESSION: Since 04/20/2019, [facility] No significant interval change. Status post lumbar fusion at L4-L5, wit h stable postoperative changes. Narrative Performed At LUMBAR SPINE [facility] CLINICAL STATEMENT: Status post lumbar fusion. Low back pain. TECHNIQUE: AP, flexion-extension, and n eutral lateral views of the lumbar spine. COMPARISON: 04/20/2019. FINDINGS: Since the prior study, there has been n o significant interval change. The patient is again noted to be status post lumbar fusion at L4-L5. Bilateral pedicle screws with interconnecting phil s appear intact and well aligned. There is persistent grade 1 anterolisth esis at L4-L5, stable on flexion extension views. Otherwise, normal vert ebral body heights are preserved. Moderate degenerative disc space narrow ing is noted at L5-S1. The remaining intervertebral disc spaces appear unrem arkable. Procedure Note Interface, Received Via [employer] System - 12/28/2020 8:14 AM EST LUMBAR SPINE CLINICAL STATEMENT: Status post lumbar fusion. Low back pain. TECHNIQUE: AP, flexion-extension, and neutral lateral views of the lumbar spine. COMPARISON: 04/20/2019. FINDINGS: Since the prior study, there has been no significant interval change. The patient is again noted to be status post lumbar fusion at L4-L5. Bilateral pedicle screws with interconnecting rods appear intact and well aligned. There is persistent grade 1 anterolisthesis at L4-L5, stable on flexion extension views. Otherwise, normal vertebral body heights are preserved. Moderate degenerative disc space narrowing is noted at L5-S1. The remaining intervertebral disc spaces appear unremarkable. IMPRESSION: Since 04/20/2019, No significant interval change. Status post lumbar fusion at L4-L5, with stable postoperative changes. Performing Organization Address City/State/Zipcode Ph one Number [facility] [address] [place] [address] documented in this encounter Visit Diagnoses Diagnosis S/P lumbar fusion - Primary Arthrodesis status Closed fracture of twelfth thoracic yusuf tebra, unspecified fracture morphology, initial encounter documented in this encounter
--- OUTSIDE RECORDS SUMMARY | 2021-01-03 16:55 | CCD ---
Author Author [facility] Organization [facility] Address Unknown Phone Unavailable Care Team Providers Care Sawmilling Operator Name Role Phone Andrew Beck Unavailable PROBLEMS Type Condition ICD9-CM Code UAJ04-ED Code Onset Dates Condition S tatus W/U Status Risk SNOMED Code Notes Problem Breast cancer screening Z12.39 Active confirmed 508097326 Problem IBS (irritable bowel syndrome) K58.9 Active confir med 33260229 Problem Recurrent UTI N39.0 Active confirmed 393891 001 Problem Coronary artery disease invo lving [place] coronary artery of [place] heart without angina pectoris I25.10 Active confirmed 010429 8732197 Problem Obesity E66.9 Active confirmed 946123698 Problem Gastroesophageal reflux disease with esophagitis K 21.0 Active confirmed 684481110 Problem Osteoarthritis of spine with radiculopathy, cervical regio n M47.22 Active confirmed 480306362 Problem Keratoconjunctivitis sicca M35.01 Active confirmed 300507303 Problem Allergic rhinitis, unspecified J30.9 Active confir med 24286996 Problem Hepatic encephalopathy K72.90 Active confirmed 76471627 Problem 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 E11.329 Active confirmed 43509040 2 Problem Neurogenic bladder N31.9 Active confirmed 3 06471567 Problem Recurrent candidiasis of vagina B37.3 Active confi rmed 275409254 Problem Chronic depression F32.9 Active confirmed 1 86670733 Problem Migraine without aura and without status migrain osus, not intractable G43.009 Active confirmed 658619805 Problem JETHRO (obstructive sleep apnea) G47.33 Active confirm ed 43196149 Problem Hx of colonic polyp Z86.010 Active confirmed 035880262 Problem Ataxia R27.0 Active confirmed 11302190 Problem DJD (degenerative joint disease), lumbar M47.816 Active confirmed 504838461 Problem Overactive bladder N32.81 Active confirmed 2 00520635 Problem Vitamin B12 deficiency E53.8 Active confirmed 086073832 Problem CHRISTIANSEN (nonalcoholic steatohepatitis) K75.81 Acti ve confirmed 143474978 Problem Vitamin D deficiency, unspecified E55.9 Active con firmed 02684987 Problem Osteoarthritis of spine with radiculopathy, lumbar region M47.26 Active confirmed 669868413 Problem Mixed hyperlipidemia E78.2 Active confirmed 232989355 Problem Intertriginous candidiasis B37.2 Active confirmed 487264067 Problem Cervical cancer screening Z12.4 Active confirmed 432360315 Problem Opioid use disorder F11.99 Active confirmed 0966958 Problem End stage liver disease K72.90 Active confirmed 278958692 Problem Venous insufficiency I87.2 Active confirmed 64846068 Problem Insomnia disorder with non-sleep disorder mental comorbidi ty G47.00 Active confirmed 39787322 Problem S/P gastric bypass Z98.84 Active confirmed 6 52778074 Problem Primary insomnia F51.01 Active confirmed 397 2004 Problem Agitation R45.1 Active confirmed 016087448 Problem Chronic diastolic congestive heart failure I50.32 Active confirmed 155823473 Problem Other ascites R18.8 Active confirmed 976170 000 Problem Iron deficiency anemia, unspecified iron deficiency an emia type D50.9 Active confirmed 13446619 ALLERGIES Allergen (clinical drug ingredient) Drug/Non Drug Allergy do cumented on EMR Reaction Allergy Type Onset Date Status Latex (for allergy use only) Rash Drug Allergy Active ciprofloxacin Cipro(NDC Code:[address]-29) Anaphylaxis Drug Allergy Active metformin lactic acidosis Non Drug Allergy Act judith fluconazole Diflucan(NDC Code:[address]-91) hives Drug Allergy Active ENCOUNTERS from 1960 to 2020-12-29 Encounter Location Date Provider Diagnosis [facility] [address] [address] Dec, Andrew Beck IMMUNIZATIONS Vaccine Route Administration Date Status Imm: Influenza 18 yrs & older Flublok IM Intramuscular Oct 20 Administered Imm: Influenza 18 yrs & older Flublok IM Intramuscular Oct 25, 2 019 Administered Imm: Influenza 18 yrs & older Flublok IM Intramuscular Nov 20 019 Administered Imm: Influenza 6mo & up Fluzone IM Intramuscular Aug 01, 2015 Administered Imm: Influenza 6mo & up Fluzone IM Intramuscular Aug 02, 2014 Administered Imm: Influenza 6mo & up Fluzone IM Intramuscular Sep 17, 2013 Administered Imm: COVID-19 dose #1 given elsewhere Unspecified IM Intramuscul ar Dec 05, 2020 Administered Imm: Influenza 6mo & up Fluzone IM Intramuscular Aug 29, 2012 Administered Imm: Influenza 6mo & up Fluzone IM Intramuscular Oct 29, 2011 Administered Imm: Influenza 6mo & up Fluzone IM Intramuscular Sep 04, 2010 Administered SOCIAL HISTORY Tobacco Use: Social History Observation Description Date Details (start date - stop date) Former Smoker Sex Assigned At : Social History Observation Description Sex Assigned At Unknown Education: Question Answer Notes Level of Education: High School Audit Question Answer Notes Total Score: 0 Interpretation: Alcohol Education Language: Question Answer Notes Languages spoken: Moroccan Mandaen: Question Answer Notes Mandaen 08 Sabianist Sexual Hx: Question Answer Notes Had sex [...] a day for 30 days Active Nystatin 436880 UNIT/GM 1 application to affected ar ea [...] rail _ once daily for 99 months 2015 Active Fluticasone Propionate 50 MCG/ACT 2 [...] Orally bid for 90 day(s) Active Pen [place] 5/16" 31G X 8 MM 1 needle subcutaneous Harshae get c pen ICD E11.9 for 90 day(s) Apr, Active BusPIRone HCl 30 MG 1 tablet Orally Twice a day for 90 day(s) Active PROCEDURES No Information RESULTS No Results REASON FOR VISIT No Information MEDICAL (GENERAL) HISTORY Type Description Date Medical History anemia secondary to B12 defi ciency and chronic kidney disease//chronic macrocytosis s anemia- 03/1999 MCV 106 Medical History T2DM insulin requiring-01/2016 SPECT-low risk-Shameka Medical History neurogenic bladder status po st [...] morbid status post gastric bypass [address] [facility], Dr. Case Medical History dyspepsia/GERD/ho jejunal ul cer-WNL REYGJ anatomy,esophagus, jejunum-10/30/19 EGD-R Medical History vitamin D deficiency Medical History chronic intertriginous candidiasis Medical History CKD stage III Medical History mild left carpal tunnel synd alvarez and left ulnar neuropathy at elbow by November 2011 [facility] Medical History allergic rhinitis/sinusitis, chronic-06/12 013 - zone 1 panel Medical History vitamin D deficiency Medical History tubular adenoma by colonosco py 02/2015-Berg10/30/19-dim tubular a-R Medical History cervical DJD s/p C4-6 ACDF 08/10/15-[place] Medical History minimal CAD-20% RCA stenosis , LVEF 60% by 02/02/16 [id number] Medical History Tyrer Cuzick score 8.83 % Surgical History cholecystectomy Surgical History back surgery Surgical History gastric bypass 2003 Surgical History colonoscopy/EGD 2014 Surgical History appendectomy Surgical History C4-6 VRGL-Fmc-Vepgrgsenn 08/10/15 Surgical History L3-S1 PDF, L4/5 interbody [...] NG, -UA, no med changes made at dc 03/09- Goals Section No Information Health Concerns [...] ml Orally qid for 90 day(s) Nystatin 818812 UNIT/GM 1 application to affected ar ea Externally Twice a day x 5 days to umbilidcus rash flare for 30 day(s) Restasis 0.05 % 1 gtt OU Ophthalmic Twice a day Rizatriptan Benzoate 10 mg 1 tablet as needed one time Orally Once a day as needed Oxybutynin Chloride 5 MG 1/2 tablet Orally Twice a day for 9 0 day(s) 15 Feb, 2021 Fluticasone Propionate 50 MCG/ACT 2 sprays in each nos tril Nasally every morning for 90 day(s) Furosemide 20 MG 1 tablet Orally every morning for 90 day(s) Spironolactone 50 MG 1 tablet Orally bid for 90 day(s) Jan, Omeprazole 40mg 40 mg 1 tablet [...] Provider Name:Andrew Beck, 2021-02-16 1 1:00:00 AM, [address] [place] [address], [phone], Insurance Providers Payer Name Payer Address Payer Phone Insured Name Patient Relati onship to Insured Coverage Start Date Coverage End Date [facility] [address] [facility] [id number] SANIYA EVANS MEDICARE Part A and B [address] [facility] [id number] [phone] SANIYA EVANS
--- OUTSIDE RECORDS SUMMARY | 2021-01-03 16:56 | CCD ---
Author Author [facility] Organization [facility] Address Unknown Phone Unavailable Care Team Providers Care Roller Mill Tender Name Role Phone Andrew Beck Unavailable PROBLEMS Type Condition ICD9-CM Code JAH60-JJ Code Onset Dates Condition S tatus W/U Status Risk SNOMED Code Notes Problem Breast cancer screening Z12.39 Active confirmed 233891133 Problem IBS (irritable bowel syndrome) K58.9 Active confir med 32761681 Problem Recurrent UTI N39.0 Active confirmed 177913 001 Problem Coronary artery disease invo lving [place] coronary artery of [place] heart without angina pectoris I25.10 Active confirmed 154519 9223410 Problem Obesity E66.9 Active confirmed 969160217 Problem Gastroesophageal reflux disease with esophagitis K 21.0 Active confirmed 757686734 Problem Osteoarthritis of spine with radiculopathy, cervical regio n M47.22 Active confirmed 544289066 Problem Keratoconjunctivitis sicca M35.01 Active confirmed 408008454 Problem Allergic rhinitis, unspecified J30.9 Active confir med 02084712 Problem Hepatic encephalopathy K72.90 Active confirmed 17714794 Problem 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 E11.329 Active confirmed 70741331 2 Problem Neurogenic bladder N31.9 Active confirmed 3 89263755 Problem Recurrent candidiasis of vagina B37.3 Active confi rmed 601924721 Problem Chronic depression F32.9 Active confirmed 1 00080523 Problem Migraine without aura and without status migrain osus, not intractable G43.009 Active confirmed 281726995 Problem JETHRO (obstructive sleep apnea) G47.33 Active confirm ed 72134643 Problem Hx of colonic polyp Z86.010 Active confirmed 807892891 Problem Ataxia R27.0 Active confirmed 70322693 Problem DJD (degenerative joint disease), lumbar M47.816 Active confirmed 558523489 Problem Overactive bladder N32.81 Active confirmed 2 76643761 Problem Vitamin B12 deficiency E53.8 Active confirmed 147937877 Problem CHRISTIANSEN (nonalcoholic steatohepatitis) K75.81 Acti ve confirmed 005369764 Problem Vitamin D deficiency, unspecified E55.9 Active con firmed 99545437 Problem Osteoarthritis of spine with radiculopathy, lumbar region M47.26 Active confirmed 099545466 Problem Mixed hyperlipidemia E78.2 Active confirmed 542629550 Problem Intertriginous candidiasis B37.2 Active confirmed 598317116 Problem Cervical cancer screening Z12.4 Active confirmed 904288662 Problem Opioid use disorder F11.99 Active confirmed 9201530 Problem End stage liver disease K72.90 Active confirmed 792491116 Problem Venous insufficiency I87.2 Active confirmed 12870683 Problem Insomnia disorder with non-sleep disorder mental comorbidi ty G47.00 Active confirmed 35452001 Problem S/P gastric bypass Z98.84 Active confirmed 6 07795076 Problem Primary insomnia F51.01 Active confirmed 397 2004 Problem Agitation R45.1 Active confirmed 889903068 Problem Chronic diastolic congestive heart failure I50.32 Active confirmed 579729570 Problem Other ascites R18.8 Active confirmed 420722 000 Problem Iron deficiency anemia, unspecified iron deficiency an emia type D50.9 Active confirmed 59239261 ALLERGIES Allergen (clinical drug ingredient) Drug/Non Drug Allergy do cumented on EMR Reaction Allergy Type Onset Date Status Latex (for allergy use only) Rash Drug Allergy Active ciprofloxacin Cipro(NDC Code:[address]-48) Anaphylaxis Drug Allergy Active metformin lactic acidosis Non Drug Allergy Act judith fluconazole Diflucan(NDC Code:[address]-75) hives Drug Allergy Active ENCOUNTERS from 1961 to 2020-12-14 Encounter Location Date Provider Diagnosis [facility] [place] [address] Dec, 021 Andrew Beck Insomnia disorder with non-sleep disorder mental comorbidity G47.00 IMMUNIZATIONS Vaccine Route Administration Date Status Influenza (18 yrs & older) Flublok IM Intramuscular Oct 20, 2020 Administered Influenza (18 yrs & older) Flublok IM Intramuscular Nov 20, 2018 Administered Influenza (6mo & up) Fluzone IM Intramuscular Aug 01, 2015 Ad ministered Influenza (18 yrs & older) Flublok IM Intramuscular Sep 04, 2019 Administered Influenza (6mo & up) Fluzone IM Intramuscular Aug 02, 2014 Ad ministered Influenza (6mo & up) Fluzone IM Intramuscular Sep 17, 2013 Ad ministered Influenza (6mo & up) Fluzone IM Intramuscular Aug 29, 2012 Ad ministered Influenza (6mo & up) Fluzone IM Intramuscular Oct 29, 2011 Ad ministered Influenza (6mo & up) Fluzone IM Intramuscular Sep 04, 2010 Ad ministered SOCIAL HISTORY Tobacco Use: Social History Observation Description Date Details (start date - stop date) Former Smoker Sex Assigned At : Social History Observation Description Sex Assigned At Unknown Education: Question Answer Notes Level of Education: High School Audit Question Answer Notes Interpretation: Alcohol Education Total Score: 0 Language: Question Answer Notes Languages spoken: Iraqi Shinto: Question Answer Notes Shinto 08 [employer] Sexual Hx: Question Answer Notes Had sex in the last 12 months (vaginal, oral, or anal)? No Have you ever had an STD? No Drug and Alcohol Question Answer Notes Interpretation: No problems reported Total Score: 0 Alcohol Screening: Question Answer Notes Did you [...] Notes Start Da te End Date Status Catheter straight disposable straight # 14 Fr catheter 10 per day for 30 day(s) Active May have ___ bed side rail _ once daily for 99 months 2015 Active Gabapentin 100 MG 1 capsule Orally three times daily for pain fo r 30 day(s) Nov, Active Restasis 0.05 % 1 gtt OU Ophthalmic Twice a day Active Duloxetine HCl 60 MG 1 capsule Orally Twice a day for 30 days Active Polyethylene Glycol - 17 G (one capful) orally daily prn constipation Active Spironolactone 50 MG 1 tablet Orally bid Jan, Active Tums 500 MG 1 tablet Orally bid Acti ve Lidocaine HCl 4 % 1 application, to neck, back or legs prn Externally every 4 hours as needed Jan, Active Humidifier - as directed DX: J30.9 Daily for 99 months Jan, Active Fluticasone Propionate 50 MCG/ACT 2 sprays in each nos tril Nasally every morning for 90 day(s) Active Pen [place] 5/16" 31G X 8 MM 1 needle subcutaneous Sohan melendez pen ICD E11.9 for 90 day(s) Apr, Active Melatonin 1 MG 1 capsule at bedtime as need ed Orally before bedtime for 30 day(s) Dec, Active One Touch Ultra 2 Lancet - 1 subcutaneously Twice a day DX 2 50.01 for 30 day(s) Active One Touch Ultra Test Strips - 1 subcutaneously Twice a day 2 50.01 for 30 day(s) Active Spironolactone 100 MG 1 tablet Orally twice daily Active Lasix 20 MG 1 tablet Orally Once a day for 30 Days Active Nystatin 483694 UNIT/GM 1 application to affected ar ea Externally Twice a day x 5 days to umbilidcus rash flare for 30 day(s) Active BusPIRone HCl 30 MG 1 tablet Orally Twice a day Active Vitamin D3 400 UNIT 1 capsules Orally bid for 30 Days Active Rolling Walker 1 with 4 wheels and a seat DX: M47.22/ M47.816 Daily for 99 months Nov, Active Depend Underwear Large Dx: 596.54 as directed _N31.9 F our times a day for 30 days Active Voltaren 1 % 4 gms to cervical/lumbar spi ne Transdermal Four times a day ` for 30 day(s) Active EQL Miconazole 3 200 & 2 MG (9GM) as directed Vaginal Daily for 3 days May, Active Vitamin B-12 500 MCG 1 tablet Orally Once a day for 30 day(s) Active Lactulose 10 GM/15ML 30 ml Orally qid Active Rizatriptan Benzoate 10 MG 1 tablet as needed one time Orally Once a day as needed for 30 days Active Omeprazole 40mg 40 mg 1 tablet by mouth AC bid for 30 day(s) Active Loratadine 10 MG 1 tablet Orally Once a day for 90 day(s) Active Trulicity 1.5 MG/0.5ML as directed Subcutaneous every 7 days for 30 day(s) Active Rifaximin 200 MG 2 tablet Orally bid Active PROCEDURES No Information RESULTS No Results REASON FOR VISIT Melatonin MEDICAL (GENERAL) HISTORY Type Description Date Medical [...] morbid status post gastric bypass 2004 at [facility], Dr. Case Medical History dyspepsia/GERD/ho jejunal [...] Medical History cervical DJD s/p C4-6 ACDF 08/10/15[place] Medical History minimal CAD-20% RCA stenosis , LVEF 60% by 02/02/16 [id number][place] Medical History Tyrer Cuzick score 8.83 % Surgical History cholecystectomy Surgical History back surgery Surgical History gastric bypass 2003 Surgical History colonoscopy/EGD 2014 Surgical History appendectomy Surgical History C4-6 [id number]-Fwv-Stbzriwcgy 08/10/15 Surgical History L3-S1 PDF, L4/5 interbody [...] No Information FUNCTIONAL STATUS No Information ASSESSMENTS Encounter Date Diagnosis Assessment Notes Treatment Notes Treatm ent Clinical Notes Dec, Insomnia disorder with non-s leep disorder mental comorbidity (ICD- 10 - G47.00) PLAN OF TREATMENT Medication Medication Name Sig Start Date Stop Date Trulicity 1.5 MG/0.5ML as directed Subcutaneous every 7 days for 30 day(s) Rifaximin 200 MG 2 tablet Orally bid Loratadine 10 MG 1 tablet Orally Once a day for 90 day(s) Omeprazole 40mg 40 mg 1 tablet by mouth AC bid for 30 day(s) One Touch Ultra 2 Lancet - 1 subcutaneously Twice a day DX 2 50.01 for 30 day(s) Polyethylene Glycol - 17 G (one capful) orally daily prn constip ation One Touch Ultra Test Strips - 1 subcutaneously Twice a day 2 50.01 for 30 day(s) Tums 500 MG 1 tablet Orally bid Nystatin 909462 UNIT/GM 1 application to affected ar ea Externally Twice a day x 5 days to umbilidcus rash flare for 30 day(s) Fluticasone Propionate 50 MCG/ACT 2 sprays in each nos tril Nasally every morning for 90 day(s) Spironolactone 100 MG 1 tablet Orally twice daily Rafaelzatriptan Benzoate 10 MG 1 tablet as needed one time Orally Once a day as needed for 30 days Restasis 0.05 % 1 gtt OU Ophthalmic Twice a day Lactulose 10 GM/15ML 30 ml Orally qid BusPIRone HCl 30 MG 1 tablet Orally Twice a day Vitamin D3 400 UNIT 1 capsules Orally bid for 30 Days Voltaren 1 % 4 gms to cervical/lumbar spi ne Transdermal Four times a day ` for 30 day(s) Melatonin 1 MG 1 capsule at bedtime as need ed Orally before bedtime for 30 day(s) Dec, Vitamin B-12 500 MCG 1 tablet Orally Once a day for 30 day(s) Lasix 20 MG 1 tablet Orally Once a day for 30 Days Duloxetine HCl 60 MG 1 capsule Orally Twice a day for 30 days Catheter straight disposable straight # 14 Fr catheter 10 per day for 30 day(s) Gabapentin 100 MG 1 capsule Orally three times daily for p ain for 30 day(s) Nov, Next Appt Details Provider Name:Andrew Beck, 2020-12-26 1 1:15:00 AM, [address] [place] [address], [phone], Provider Name:Andrew Beck, 2021-02-03 0 3:15:00 PM, [address] [place] [address], [phone], Insurance Providers Payer Name Payer Address Payer Phone Insured Name Patient Relati onship to Insured Coverage Start Date Coverage End Date [facility] [address] [facility] [id number] SANIYA EVANS MEDICARE Part A and B [address] [facility] [phone] SANIYA EVANS self
--- OUTSIDE RECORDS SUMMARY | 2021-01-03 16:56 | CCD ---
Author Author [facility] Organization [facility] Address Unknown Phone Unavailable Care Team Providers Care Delivery Rn Name Role Phone Andrew Beck Unavailable PROBLEMS Type Condition ICD9-CM Code [id number] Code Onset Dates Condition S tatus SNOMED Code Notes Problem Neurogenic bladder N31.9 Active 253018258 Problem Recurrent UTI N39.0 Active 517432173 Problem Breast cancer screening Z12.39 Active 09809917 6 Problem Obesity E66.9 Active 622203981 Problem IBS (irritable bowel syndrome) K58.9 Active 1 3817182 Problem Osteoarthritis of spine with radiculopathy, cervical regio n M47.22 Active 810853256 Problem Coronary artery disease invo lving [place] coronary artery of [place] heart without angina pectoris I25.10 Active 809023679736 7 Problem Hepatic encephalopathy K72.90 Active 85424822 Problem 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 E11.329 Active 790757967 Problem CHRISTIANSEN (nonalcoholic steatohepatitis) K75.81 Acti ve 383969887 Problem Vitamin D deficiency, unspecified E55.9 Active 29355090 Problem Recurrent candidiasis of vagina B37.3 Active 447458899 Problem Allergic rhinitis, unspecified J30.9 Active 6 1951673 Problem Migraine without aura and without status migrain osus, not intractable G43.009 Active 307597799 Problem Primary insomnia F51.01 Active 6248892 Problem Hx of colonic polyp Z86.010 Active 160736178 Problem Chronic depression F32.9 Active 322473216 Problem Overactive bladder N32.81 Active 238819587 Problem Vitamin B12 deficiency E53.8 Active 314671230 Problem JETHRO (obstructive sleep apnea) G47.33 Active 78 336963 Problem Osteoarthritis of spine with radiculopathy, lumbar region M47.26 Active 728556142 Problem Mixed hyperlipidemia E78.2 Active 025411122 Problem Ataxia R27.0 Active 63273449 Problem DJD (degenerative joint disease), lumbar M47.816 Active 639254960 Problem Keratoconjunctivitis sicca M35.01 Active 13555 0088 Problem Intertriginous candidiasis B37.2 Active 70500 8001 Problem Cervical cancer screening Z12.4 Active 206560 001 Problem Iron deficiency anemia, unspecified iron deficiency an emia type D50.9 Active 55231622 Problem S/P gastric bypass Z98.84 Active 792516561 Problem End stage liver disease K72.90 Active 63939092 4 Problem Gastroesophageal reflux disease with esophagitis K 21.0 Active 604952232 Problem Venous insufficiency I87.2 Active 83260225 Problem Opioid use disorder F11.99 Active 0993652 Problem Agitation R45.1 Active 934835102 Problem Chronic diastolic congestive heart failure I50.32 Active 946849155 Problem Other ascites R18.8 Active 210319256 ALLERGIES Allergen (clinical drug ingredient) Drug/Non Drug Allergy do cumented on EMR Reaction Allergy Type Onset Date Status Latex (for allergy use only) Rash Drug Allergy Active ciprofloxacin Cipro(ND Code:[address]-82) Anaphylaxis Drug Allergy Active metformin lactic acidosis Non Drug Allergy Act judith fluconazole Diflucan(ND Code:[address]-73) hives Drug Allergy Active ENCOUNTERS from 1961 to 2020-12-01 Encounter Location Date Provider Diagnosis [address] [address] Nov, 021 Andrew Beck IMMUNIZATIONS Vaccine Route Administration Date Status Influenza (18 yrs & older) Flublok IM Intramuscular Oct 20, 2020 Administered Influenza (18 yrs & older) Flublok IM Intramuscular Sep 04, 2019 Administered Influenza (18 yrs & older) Flublok IM Intramuscular Nov 20, 2018 Administered Influenza (6mo & up) Fluzone IM Intramuscular Aug 01, 2015 Ad ministered Influenza (6mo & up) Fluzone [...] Education Language: Question Answer Notes Languages spoken: Moldovan Jewish: Question Answer Notes Jewish 08 Advent Sexual Hx: Question Answer Notes Had sex [...] gtt OU Ophthalmic Twice a day Active Polyethylene Glycol - 17 G (one [...] every morning for 90 day(s) Active Pen [place] 5/16" 31G X 8 MM 1 needle subcutaneous Sohan melendez pen ICD E11.9 for 90 day(s) Apr, Active Voltaren 1 % 4 gms to cervical/lumbar spi ne Transdermal Four times a day ` for 30 day(s) Active One Touch Ultra 2 Lancet - 1 subcutaneously Twice a day DX 2 50.01 for 30 day(s) Active One Touch Ultra Test Strips - 1 subcutaneously Twice a day 2 50.01 for 30 day(s) Active Spironolactone 100 MG 1 tablet Orally twice daily Active Lasix 20 MG 1 tablet Orally Once a day for 30 Days Active Nystatin 012998 UNIT/GM 1 application to affected ar ea [...] times a day for 30 days Active Duloxetine HCl 60 MG 1 capsule Orally Twice a day for 30 days Active EQL Miconazole 3 200 & 2 [...] Information RESULTS No Results REASON FOR VISIT pain management MEDICAL (GENERAL) HISTORY Type Description Date Medical History anemia secondary to B12 defi ciency and chronic kidney disease//chronic macrocytosis s anemia- 03/1999 MCV 106 Medical History T2DM insulin requiring-01/2016 SPECT-low risk-[facility] Medical History neurogenic bladder status po st laminectomy -patient performs clean intermittent self catheterization/recurrent UTI Medical History DJD lumbosacral spine with s econdary bilateral lower extremity radiculopathy-November 2011 NCS-moderate chronic left L5/S1 radiculopathy, mild chronic right L5/S1 radiculopathy-[facility] MRI intact L4/5 fusion s CCS nor NFS Medical History NAFLD Medical History IBS, mixed type Medical History obesity, morbid status post gastric bypass 2004 at [facility], Dr. Case Medical History dyspepsia/GERD/ho [...] Medical History cervical DJD s/p C4-6 ACDF 08/10/15-[place] Medical History minimal CAD-20% RCA stenosis , LVEF 60% by 02/02/16 [id number]-ODD-[place] Medical History Tyrer Cuzick score 8.83 % Surgical History cholecystectomy Surgical History back surgery Surgical History gastric bypass 2003 Surgical History colonoscopy/EGD 2014 Surgical History appendectomy Surgical History C4-6 [id number] 08/10/15 Surgical History L3-S1 PDF, L4/5 interbody [...] NG, -UA, no med changes made at [facility] 03/09- [place] Section No Information Health Concerns [...] 500 MG 1 tablet Orally bid Nystatin 861943 UNIT/GM 1 application to affected ar ea Externally Twice a day x 5 days to umbilidcus rash flare for 30 day(s) Fluticasone Propionate 50 MCG/ACT 2 sprays in each nos tril Nasally every morning for 90 day(s) Spironolactone 100 MG 1 tablet Orally twice daily Rizatriptan Benzoate 10 MG 1 tablet as needed one time Orally Once a day as needed for 30 days Restasis 0.05 % 1 gtt OU Ophthalmic Twice a day Lactulose 10 GM/15ML 30 ml Orally qid BusPIRone HCl 30 MG 1 tablet Orally Twice a day Vitamin D3 400 UNIT 1 capsules Orally bid for 30 Days Duloxetine HCl 60 MG 1 capsule Orally Twice a day for 30 days Voltaren 1 % 4 gms to cervical/lumbar spi ne Transdermal Four times a day ` for 30 day(s) Vitamin B-12 500 MCG 1 tablet Orally Once a day for 30 day(s) Lasix 20 MG 1 tablet Orally Once a day for 30 Days Catheter straight disposable straight # 14 Fr catheter 10 per day for 30 day(s) Gabapentin 100 MG 1 capsule Orally three times daily for p ain for 30 day(s) Nov, Next Appt Details Provider Name:Andrew Beck, 2020-12-13 0 4:00:00 PM, [facility] [place], [address], Provider Name:Andrew Beck, 2021-02-03 0 3:15:00 PM, [address] [place], [address], Insurance Providers Payer Name Payer Address Payer Phone Insured Name Patient Relati onship to Insured Coverage Start Date Coverage End Date [facility] [address] [facility] [address] SANIYA EVANS MEDICARE Part A and B [address] [facility] [phone] SANIYA EVANS
--- OUTSIDE RECORDS SUMMARY | 2021-01-03 16:56 | CCD ---
Author Author [facility] Organization [facility] Address Unknown Phone Unavailable Care Team Providers Care Venture Capital Analyst Name Role Phone Andrew Beck Unavailable PROBLEMS Type Condition ICD9-CM Code [id number] Code Onset Dates Condition S tatus SNOMED Code Notes Problem Neurogenic bladder N31.9 Active 670649536 Problem Recurrent UTI N39.0 Active 456382075 Problem Breast cancer screening Z12.39 Active 73710243 6 Problem Obesity E66.9 Active 484923751 Problem IBS (irritable bowel syndrome) K58.9 Active 1 8548017 Problem Osteoarthritis of spine with radiculopathy, cervical regio n M47.22 Active 620748904 Problem Coronary artery disease invo lving [place] coronary artery of [place] heart without angina pectoris I25.10 Active 340525748038 7 Problem Hepatic encephalopathy K72.90 Active 30488592 Problem 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 E11.329 Active 325597675 Problem CHRISTIANSEN (nonalcoholic steatohepatitis) K75.81 Acti ve 280052235 Problem Vitamin D deficiency, unspecified E55.9 Active 57378637 Problem Recurrent candidiasis of vagina B37.3 Active 028979882 Problem Allergic rhinitis, unspecified J30.9 Active 6 2948620 Problem Migraine without aura and without status migrain osus, not intractable G43.009 Active 375918543 Problem Primary insomnia F51.01 Active 0018452 Problem Hx of colonic polyp Z86.010 Active 725943633 Problem Chronic depression F32.9 Active 331086805 Problem Overactive bladder N32.81 Active 317367508 Problem Vitamin B12 deficiency E53.8 Active 916200713 Problem JETHRO (obstructive sleep apnea) G47.33 Active 78 473268 Problem Osteoarthritis of spine with radiculopathy, lumbar region M47.26 Active 744836240 Problem Mixed hyperlipidemia E78.2 Active 388383118 Problem Ataxia R27.0 Active 37714751 Problem DJD (degenerative joint disease), lumbar M47.816 Active 085059126 Problem Keratoconjunctivitis sicca M35.01 Active 98819 3238 Problem Intertriginous candidiasis B37.2 Active 64496 8001 Problem Cervical cancer screening Z12.4 Active 546562 001 Problem Iron deficiency anemia, unspecified iron deficiency an emia type D50.9 Active 99417330 Problem S/P gastric bypass Z98.84 Active 227853856 Problem End stage liver disease K72.90 Active 15616422 4 Problem Gastroesophageal reflux disease with esophagitis K 21.0 Active 073286709 Problem Venous insufficiency I87.2 Active 90877780 Problem Opioid use disorder F11.99 Active 1172907 Problem Agitation R45.1 Active 554370315 Problem Chronic diastolic congestive heart failure I50.32 Active 523125857 Problem Other ascites R18.8 Active 395742614 ALLERGIES Allergen (clinical drug ingredient) Drug/Non Drug Allergy do cumented on EMR Reaction Allergy Type Onset Date Status Latex (for allergy use only) Rash Drug Allergy Active ciprofloxacin Cipro(NDC Code:[address]-11) Anaphylaxis Drug Allergy Active metformin lactic acidosis Non Drug Allergy Act judith fluconazole Diflucan(NDC Code:[address]-58) hives Drug Allergy Active ENCOUNTERS from 1961 to 2020-10-29 Encounter Location Date Provider Diagnosis [address] [address] Oct, 020 Andrew Beck Chronic diastolic congestive heart failure I50.32 and Vitamin B12 deficiency E53.8 IMMUNIZATIONS Vaccine Route Administration Date Status Influenza [...] Education Language: Question Answer Notes Languages spoken: Wallisian Nondenominational: Question Answer Notes Nondenominational 08 Synagogue Sexual Hx: Question Answer Notes Had sex [...] Notes Start Da te End Date Status Rizatriptan Benzoate 10 mg 1 tablet as needed one time Orally Once a day as needed Active Lidocaine HCl 4 % 1 application, to neck, back or legs prn Externally every 4 hours as needed Jan, Active Tums 500 MG 1 tablet Orally bid Acti ve May have ___ bed side rail _ once daily for 99 months 26 J 2015 Active Fluticasone Propionate 50 MCG/ACT 2 sprays in each nos tril Nasally every morning for 90 day(s) Active Pen [place] 5/16" 31G X 8 MM 1 needle subcutaneous Sohan melendez pen ICD E11.9 for 90 day(s) Apr, Active Polyethylene Glycol - 17 G (one capful) orally daily prn constipation Active Spironolactone 50 MG 1 tablet Orally bid Jan, Active Voltaren 1 % 4 gms to cervical/lumbar spi ne Transdermal Four times a day ` for 30 day(s) Active Rolling Walker 1 with 4 wheels and a seat DX: M47.22/ M47.816 Daily for 99 months Nov, Active Humidifier - as directed DX: J30.9 Daily for 99 months Jan, Active Duloxetine HCl 60 MG 1 capsule Orally Twice a day for 30 days Active Vitamin D3 400 UNIT 1 capsules Orally bid for 30 Days Active One Touch Ultra 2 Lancet - 1 subcutaneously Twice a day DX 2 50.01 for 30 day(s) Active BusPIRone HCl 30 MG 1 tablet Orally Twice a day Active Vitamin B-12 500 MCG 1 tablet Orally Once a day for 30 day(s) Active Depend Underwear Large Dx: 596.54 as directed _N31.9 F our times a day for 30 days Active Trulicity 1.5 MG/0.5ML as directed Subcutaneous every 7 days for 30 day(s) Active Lasix 20 MG 1 tablet Orally Once a day for 30 Days Active Nystatin 621683 UNIT/GM 1 application to affected ar ea Externally Twice a day x 5 days to umbilidcus rash flare for 30 day(s) Active Restasis 0.05 % 1 gtt OU Ophthalmic Twice a day Active Lactulose 10 GM/15ML 30 ml Orally qid Active Catheter straight disposable straight # 14 Fr catheter 10 per day for 30 day(s) Active One Touch Ultra Test Strips - 1 subcutaneously Twice a day 2 50.01 for 30 day(s) Active EQL Miconazole 3 200 & 2 MG (9GM) as directed Vaginal Daily for 3 days May, Active Loratadine 10 MG 1 tablet Orally Once a day for 90 day(s) Active Spironolactone 100 MG 1 tablet Orally twice daily Active Omeprazole 40mg 40 mg 1 tablet by mouth AC bid for 30 day(s) Active Rifaximin 200 MG 2 tablet Orally bid Active PROCEDURES No Information RESULTS No Results REASON FOR VISIT No Information MEDICAL (GENERAL) HISTORY Type Description Date Medical History anemia secondary to B12 defi ciency and chronic kidney disease//chronic macrocytosis s anemia- 03/1999 MCV 106 Medical History T2DM insulin requiring-01/2016 SPECT-low risk-[facility] Medical History neurogenic bladder status po [...] morbid status post gastric bypass 2004 at [facility], Dr. Case Medical History dyspepsia/GERD/ho jejunal [...] Medical History cervical DJD s/p C4-6 ACDF 08/10/15-[place] Medical History minimal CAD-20% RCA stenosis , LVEF 60% by 02/02/16 ointbwoojzaxv-FIM-[place] Medical History Tyrer Cuzick score 8.83 % Surgical History cholecystectomy Surgical History back surgery Surgical History gastric bypass 2003 Surgical History colonoscopy/EGD 2014 Surgical History appendectomy Surgical History C4-6 [id number]-Pknavlaxfj 08/10/15 Surgical History L3-S1 PDF, L4/5 interbody cage-Dr. Vale-[facility] 07/24/16 Surgical History L femoral neck fracture s/p fall s/[facility] Hospitalization History spine 08/17/17-08/30/17 Hospitalization History [...] Notes Treatment Notes Treatm ent Clinical Notes Oct, Chronic diastolic congestive heart failure (ICD- 10 - I50.32) Oct, Vitamin B12 deficiency (ICD-10 - E53.8) PLAN OF TREATMENT Medication Medication Name Sig Start Date Stop Date Omeprazole 40mg 40 mg 1 tablet by mouth AC bid for 30 day(s) Rifaximin 200 MG 2 tablet Orally bid Spironolactone 100 MG 1 tablet Orally twice daily Loratadine 10 MG 1 tablet Orally Once a day for 90 day(s) Vitamin D3 400 UNIT 1 capsules Orally bid for 30 Days Fluticasone Propionate 50 MCG/ACT 2 sprays in each nos tril Nasally every morning for 90 day(s) One Touch Ultra 2 Lancet - 1 subcutaneously Twice a day DX 2 50.01 for 30 day(s) Polyethylene Glycol - 17 G (one capful) orally daily prn constip ation Restasis 0.05 % 1 gtt OU Ophthalmic Twice a day Nystatin 844816 UNIT/GM 1 application to affected ar ea Externally Twice a day x 5 days to umbilidcus rash flare for 30 day(s) Lactulose 10 GM/15ML 30 ml Orally qid BusPIRone HCl 30 MG 1 tablet Orally Twice a day Voltaren 1 % 4 gms to cervical/lumbar spi ne Transdermal Four times a day ` for 30 day(s) One Touch Ultra Test Strips - 1 subcutaneously Twice a day 2 50.01 for 30 day(s) Trulicity 1.5 MG/0.5ML as directed Subcutaneous every 7 days for 30 day(s) Lasix 20 MG 1 tablet Orally Once a day for 30 Days Duloxetine HCl 60 MG 1 capsule Orally Twice a day for 30 days Catheter straight disposable straight # 14 Fr catheter 10 per day for 30 day(s) Vitamin B-12 500 MCG 1 tablet Orally Once a day for 30 day(s) Rizatriptan Benzoate 10 mg 1 tablet as needed one time Orally Once a day as needed Tums 500 MG 1 tablet Orally bid Next Appt Details Provider Name:Andrew Britni Kiran, 2020-12-30 0 1:30:00 PM, [address] [place] [address], [address], Provider Name:Andrew Beck, 2021-02-03 0 3:15:00 PM, [address] [place] [address], [address], Insurance Providers Payer Name Payer Address Payer Phone Insured Name Patient Relati onship to Insured Coverage Start Date Coverage End Date [facility] [address] [facility] [address] SANIYA EVANS MEDICARE Part A and B [address] [facility] [address] SANIYA EVANS
--- OUTSIDE RECORDS SUMMARY | 2021-01-03 16:56 | CCD ---
Author Author [facility] Organization [facility] Address Unknown Phone Unavailable Care Team Providers Care Supervisor Grips Name Role Phone Andrew Beck Unavailable PROBLEMS Type Condition ICD9-CM Code [id number] Code Onset Dates Condition S tatus SNOMED Code Notes Problem Neurogenic bladder N31.9 Active 509615262 Problem Recurrent UTI N39.0 Active 852523830 Problem Breast cancer screening Z12.39 Active 13313880 6 Problem Obesity E66.9 Active 546579752 Problem IBS (irritable bowel syndrome) K58.9 Active 1 2436582 Problem Osteoarthritis of spine with radiculopathy, cervical regio n M47.22 Active 682810645 Problem Coronary artery disease invo lving [place] coronary artery of [place] heart without angina pectoris I25.10 Active 520842662700 7 Problem Hepatic encephalopathy K72.90 Active 71090763 Problem 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 E11.329 Active 900900993 Problem CHRISTIANSEN (nonalcoholic steatohepatitis) K75.81 Acti ve 820657859 Problem Vitamin D deficiency, unspecified E55.9 Active 46078584 Problem Recurrent candidiasis of vagina B37.3 Active 919097749 Problem Allergic rhinitis, unspecified J30.9 Active 6 5906921 Problem Migraine without aura and without status migrain osus, not intractable G43.009 Active 279829446 Problem Primary insomnia F51.01 Active 0465834 Problem Hx of colonic polyp Z86.010 Active 089784877 Problem Chronic depression F32.9 Active 151536549 Problem Overactive bladder N32.81 Active 645038985 Problem Vitamin B12 deficiency E53.8 Active 706819482 Problem JETHRO (obstructive sleep apnea) G47.33 Active 78 919412 Problem Osteoarthritis of spine with radiculopathy, lumbar region M47.26 Active 091516584 Problem Mixed hyperlipidemia E78.2 Active 327170457 Problem Ataxia R27.0 Active 74555736 Problem DJD (degenerative joint disease), lumbar M47.816 Active 131655966 Problem Keratoconjunctivitis sicca M35.01 Active 21791 0189 Problem Intertriginous candidiasis B37.2 Active 39886 8001 Problem Cervical cancer screening Z12.4 Active 710644 001 Problem Iron deficiency anemia, unspecified iron deficiency an emia type D50.9 Active 21612607 Problem S/P gastric bypass Z98.84 Active 936779782 Problem End stage liver disease K72.90 Active 37584022 4 Problem Gastroesophageal reflux disease with esophagitis K 21.0 Active 758287427 Problem Venous insufficiency I87.2 Active 92402498 Problem Opioid use disorder F11.99 Active 5900473 Problem Agitation R45.1 Active 100557023 Problem Chronic diastolic congestive heart failure I50.32 Active 206938109 Problem Other ascites R18.8 Active 663663627 ALLERGIES Allergen (clinical drug ingredient) Drug/Non Drug Allergy do cumented on EMR Reaction Allergy Type Onset Date Status Latex (for allergy use only) Rash Drug Allergy Active ciprofloxacin Cipro(NDC Code:[address]-71) Anaphylaxis Drug Allergy Active metformin lactic acidosis Non Drug Allergy Act judith fluconazole Diflucan(NDC Code:[address]-20) hives Drug Allergy Active ENCOUNTERS from 1961 to 2020-11-07 Encounter Location Date Provider Diagnosis [address] [address] Oct, 020 Andrew Beck IMMUNIZATIONS Vaccine Route Administration Date [...] Education Language: Question Answer Notes Languages spoken: Citizen Of [place] Sikh: Question Answer Notes Sikh 08 [employer]ar[employer] Sexual Hx: Question Answer Notes Had sex [...] daily for 99 months 26 J , 2016 Active Fluticasone Propionate 50 MCG/ACT 2 sprays in each nos tril Nasally every morning for 90 day(s) Active Pen [place] 5/16" 31G X 8 MM 1 needle subcutaneous Sohan deutsch c pen ICD E11.9 for 90 day(s) [...] a day for 30 Days Active Nystatin 109517 UNIT/GM 1 application to affected ar ea [...] RESULTS No Results REASON FOR VISIT pain meds MEDICAL (GENERAL) HISTORY Type Description Date Medical History anemia secondary to B12 defi ciency and chronic kidney disease//chronic macrocytosis s anemia- 03/1999 MCV 106 Medical History T2DM insulin requiring-01/2016 S[facility]-low [facility] Medical History neurogenic bladder status po [...] morbid status post gastric bypass 2004 at [facility], Dr. Case Medical History dyspepsia/GERD/ho jejunal ul cer-WNL REYGJ anatomy,esophagus, jejunum-10/30/19 EGD-R Medical History vitamin D deficiency Medical History chronic intertriginous candidiasis Medical History CKD stage III Medical History mild left carpal tunnel synd alvarez and left ulnar neuropathy at elbow by November 2011 NCS-[place] Medical History allergic rhinitis/sinusitis, chronic-06/12 013 - zone 1 panel Medical History vitamin D deficiency Medical History tubular adenoma by colonosco py 02/2015-[place]10/30/19-dim tubular a-R Medical History cervical DJD s/p C4-6 ACDF 08/10/15-[place] Medical History minimal CAD-20% RCA stenosis , LVEF 60% by 02/02/16 gmqjqmxndbags-FRA-[place]. [place] Medical History Tyrer Cuzick score 8.83 % Surgical History cholecystectomy Surgical History back surgery Surgical History gastric bypass 2003 Surgical History colonoscopy/EGD 2014 Surgical History appendectomy Surgical History C4-6 [id number]-Wou-[place] 08/10/15 Surgical History L3-S1 PDF, L4/5 [facility]body [facility] 07/[facility]/16 Surgical History L femoral neck fracture s/p fall s/p IM nail placement-Dr. [facility] 07/26/16 Hospitalization History spine 08/17/17-08/30/17 Hospitalization History [...] gtt OU Ophthalmic Twice a day Nystatin 975729 UNIT/GM 1 application to affected ar ea [...] Orally bid Next Appt Details Provider Name:Andrew Beck, 2020-12-30 0 1:30:00 PM, [address] [place], [address], Provider Name:Andrew Beck, 2021-02-03 0 3:15:00 PM, [address] [place], [address], Insurance Providers Payer Name Payer Address Payer Phone Insured Name Patient Relati onship to Insured Coverage Start Date Coverage End Date MEDICARE Part A and B [address] [facility] [phone] SANIYA EVANS [facility] [address] [facility] [phone] SANIYA EVANS
--- OUTSIDE RECORDS SUMMARY | 2021-01-03 16:56 | CCD ---
Author Author [facility] Organization [facility] Address Unknown Phone Unavailable Care Team Providers Care Hot Car Charger Name Role Phone Andrew Beck Unavailable PROBLEMS Type Condition ICD9-CM Code [id number] Code Onset Dates Condition S tatus SNOMED Code Notes Problem Neurogenic bladder N31.9 Active 753248558 Problem Recurrent UTI N39.0 Active 929718813 Problem Breast cancer screening Z12.39 Active 15256296 6 Problem Obesity E66.9 Active 678662537 Problem IBS (irritable bowel syndrome) K58.9 Active 1 5508161 Problem Osteoarthritis of spine with radiculopathy, cervical regio n M47.22 Active 071941759 Problem Coronary artery disease invo lving kotlik coronary artery of kotlik heart without angina pectoris I25.10 Active 088914133031 7 Problem Hepatic encephalopathy K72.90 Active 02292314 Problem 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 E11.329 Active 097417366 Problem CHRISTIANSEN (nonalcoholic steatohepatitis) K75.81 Acti ve 541481698 Problem Vitamin D deficiency, unspecified E55.9 Active 85442869 Problem Recurrent candidiasis of vagina B37.3 Active 241727439 Problem Allergic rhinitis, unspecified J30.9 Active 6 4425147 Problem Migraine without aura and without status migrain osus, not intractable G43.009 Active 810314569 Problem Primary insomnia F51.01 Active 0330036 Problem Hx of colonic polyp Z86.010 Active 104551334 Problem Chronic depression F32.9 Active 447052213 Problem Overactive bladder N32.81 Active 007904617 Problem Vitamin B12 deficiency E53.8 Active 303892382 Problem JETHRO (obstructive sleep apnea) G47.33 Active 78 300464 Problem Osteoarthritis of spine with radiculopathy, lumbar region M47.26 Active 176414659 Problem Mixed hyperlipidemia E78.2 Active 699896269 Problem Ataxia R27.0 Active 73161954 Problem DJD (degenerative joint disease), lumbar M47.816 Active 689809156 Problem Keratoconjunctivitis sicca M35.01 Active 30651 0188 Problem Intertriginous candidiasis B37.2 Active 75262 8001 Problem Cervical cancer screening Z12.4 Active 011098 001 Problem Iron deficiency anemia, unspecified iron deficiency an emia type D50.9 Active 55110809 Problem S/P gastric bypass Z98.84 Active 977570265 Problem End stage liver disease K72.90 Active 73716761 4 Problem Gastroesophageal reflux disease with esophagitis K 21.0 Active 334909914 Problem Venous insufficiency I87.2 Active 90784239 Problem Opioid use disorder F11.99 Active 3139394 Problem Agitation R45.1 Active 780099977 Problem Chronic diastolic congestive heart failure I50.32 Active 254688247 Problem Other ascites R18.8 Active 661300605 ALLERGIES Allergen (clinical drug ingredient) Drug/Non Drug Allergy do cumented on EMR Reaction Allergy Type Onset Date Status Latex (for allergy use only) Rash Drug Allergy Active ciprofloxacin Cipro(NDC Code:[address]-72) Anaphylaxis Drug Allergy Active metformin lactic acidosis Non Drug Allergy Act judith fluconazole Diflucan(NDC Code:[address]-78) hives Drug Allergy Active ENCOUNTERS from 1961 to 2020-10-28 Encounter Location Date Provider Diagnosis [address] [id number] 10 Oct, 2 020 Andrew Beck Hepatic encephalopathy K72.90 ; Mixed hyperlipidemia E78.2 ; Recurrent UTI N39.0 ; DJD (degenerative joint disease), lumbar M47.816 ; Encounter for immunization Z23 ; Type 2 diabetes mellitus wit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 E11.329 ; Iron deficiency anemia, unspecified iron deficiency anemia type D50.9 ; Chronic diastolic congestive heart failure I50.32 ; Vitamin B12 deficiency E53.8 ; Opioid use disorder F11.99 ; Allergic rhinitis, unspecified J30.9 ; Intertriginous candidiasis B37.2 ; Keratoconjunctivitis sicca M35.01 ; Venous insufficiency I87.2 ; IBS (irritable bowel syndrome) K58.9 ; JETHRO (obstructive sleep apnea) G47.33 ; Cervical cancer screening Z12.4 ; Ataxia R27.0 ; Overactive bladder N32.81 ; Hx of colonic polyp Z86.010 ; Coronary artery disease involving kotlik coronary artery of kotlik heart without angina pectoris I25.10 ; Gastroesophageal reflux disease with esophagitis K21.0 ; Osteoarthritis of spine with radiculopathy, cervical region M47.22 ; S/P gastric bypass Z98.84 ; Migraine without aura and without status migrainosus, not intractable G43.009 ; Chronic depression F32.9 ; Primary insomnia F51.01 ; Neurogenic bladder N31.9 ; Vitamin D deficiency, unspecified E55.9 ; Recurrent candidiasis of vagina B37.3 ; Breast cancer screening Z12.39 ; Obesity E66.9 and End stage liver disease K72.90 IMMUNIZATIONS Vaccine Route Administration Date Status Influenza [...] Education Language: Question Answer Notes Languages spoken: Bulgarian Hinduism: Question Answer Notes Hinduism 08 Mandaeism Sexual Hx: Question Answer Notes Had sex [...] REASON FOR REFERRAL No Information VITAL SIGNS Weight 202.6 lbs Oct, Height 63.5 in Oct, BMI 35.32 kg/m2 Oct, Heart Rate 93 /min Oct, Respiratory Rate 18 /min Oct, Temperature 97.7 degrees Fahrenheit Oct, Oximetry 99% Oct, Blood pressure systolic 118 mm Hg Oct, Blood pressure diastolic 22 mm Hg Oct, MEDICATIONS Medication SIG (Take, Route, Frequency, Duration) [...] every morning for 90 day(s) Active Pen [place] 5/16" 31G X 8 MM 1 needle subcutaneous Sohan deutsch nora pen ICD E11.9 for 90 day(s) Apr, [...] a day for 30 Days Active Nystatin 244950 UNIT/GM 1 application to affected ar ea [...] MG 2 tablet Orally bid Active PROCEDURES from 1961 to 2020-10-28 Procedure Date Ordered Result Body Site Immunization: Flublok Quadrivalent (18 years & older) 0.5mL IM (Influenza) 2020-10-20 N/A RESULTS REASON FOR VISIT follow up MEDICAL (GENERAL) HISTORY Type Description Date Medical History anemia secondary to B12 defi ciency and chronic kidney disease//chronic macrocytosis s anemia- 03/1999 MCV 106 Medical History T2DM insulin requiring-01/2016 SPECT-low risk-[facility] Medical History neurogenic bladder status po st laminectomy -patient performs clean intermittent self catheterization/recurrent UTI Medical History DJD lumbosacral spine with s econdary bilateral lower extremity radiculopathy-November 2011 NCS-moderate chronic left L5/S1 radiculopathy, mild chronic right L5/S1 radiculopathy- MRI intact L4/5 fusion s CCS nor NFS Medical History NAFLD Medical History IBS, mixed type Medical History obesity, morbid status post gastric bypass 2004 at [facility], Dr. Case Medical History dyspepsia/GERD/ho [...] Medical History cervical DJD s/p C4-6 ACDF 08/10/15-[facility] Medical History minimal CAD-20% RCA stenosis , LVEF 60% by 02/02/16 [id number]-Ey. [place] Medical History Tyrer Cuzick score 8.83 % Surgical History cholecystectomy Surgical History back surgery Surgical History gastric bypass 2003 Surgical History colonoscopy/EGD 2014 Surgical History appendectomy Surgical History C4-6 [id number] 08/10/15 Surgical History L3-S1 PDF, L4/5 interbody [...] Treatment Notes Treatm ent Clinical Notes Oct, Hepatic encephalopathy (ICD-10 - K72.90) on rifaximin 400 BID and lactulose 30 ml QID C: 10/20/20 NH3 123; therefore, avoid restarting statin and dc Butrans c repeat NH3 in 7D 06/2020 admission for HE claus 600 TID and metho 500 TID hled 03/15/20 today grade I-II HE; therefore, dc Butrans and decreased claus 900 QID to 600 TID c recheck MS in 3D 02/08/20 76 at dc from [facility] for HE (was 66 on admission 02/07/20)-no infectious source, no medication changes made 08/25/19 62 (before + Butrans) 02/2019 70 c stable MS 01/2019 84; therefore, encouraged compliance c regimen, nanette lactulose 12/2018 84 on rifaximin 400 BID, lactulose 30 TID 10/2018 NH3 57 09/07-09/17/18 acute HE/elevated NH3 to 235 c 2 ataxia/falls-+ lactulose, rifax; ami, metho, zonis were held and claus decreased c resolved sx 01/2019 CHRISTIANSEN FS: F2/S2 08/2019 PT/PTT 01/2019 AFP 2 01/2019 -Andre/AMA 01/2019 -hepBsAg 04/2017 - hep C Oct, Mixed hyperlipidemia (ICD-10 - E78.2) 10/20/20 51/51/70 and NH3 123 s statin; therefore, avoid use 12/2018 70/40/198, 68 01/2018 53/39/110, 53 on atorva 20 11/2015 64/46/145 on atorva 20 07/2014 65/47/164, CPK 52 (prior to statin) but given DM2 started Lipitor 20 01/2018 0.9, 0.9 11/2014 1.1 05/2012 2.1 09/2010 TSH 0.9 Oct, Recurrent UTI (ICD-10 - N39.0) Patient remains asymptomatic off px /////cipro anaphalaxis 05/05/20 asx UCX E coli >100K (given ho MDR E. faecium-plan rx ONLY c sx) 04/20/20 UCX E faceium c dysuria; therefore, linez 600 BID 7D (R to all other po) and held cephalo px 05/2019 UCX E coli res to nitro; changed to cephal 500 QHS 09/16/18 UCX E coli >100K R to Bactrim; therefore, changed to nitro 50 QHS 05/2017 UCX E coli >100K; therefore, changed Bactrim SS Oct, DJD (degenerative joint disease), lumbar (ICD-10 - M47.816) on dulox 60 BID (at MDD 120) (metho, claus, Butrans all held 2 HE) Now favoring surgical consideration offered by Dr. Vale 10/05/19 c fibromylagia, h/o opioid use do 02/2019 - H pylori Ab Contingency: titrate claus/meth, THC (defers 2 OOP cost); avoid acetomin given HE (caution sp gb), C3-7 DF per Akanksha also follows with Dr. Fabian for CX/LS anny-LV 08/04/[address] Vale-LV 10/06/19 10/20/20 NH3 123; therefore, Butrans 5 stopped 06/2020 admission for HE claus 600 TID and metho 500 TID held 05/05/20 restarted Butrans 5 given SEVERE intractable pain to use UNTIL Dr. Vale surgery-preop per patient 05/3112/18/19 given stable MS and baseline NH4 84 and px assurance that she will be compliant c lactulose; increased Butrans 5 to 10, claus 900 TID to 900 QID (MDD) an referred for LS OMT trial 12/11/19 restarted Butrans 5 given severe chronic lumbar pain c reduction of meth 750 TID to 500 BID and understanding that patient is NOT to skip lactulose or we would have to dc Butrans again 11/2019 held Butrans p admission for HE (mainly 2 non-compliance c lactulose) 10/12/19 increased to 10 and dced oxy 2.5 BID 10/05/19 Akanksha offered C3-7 ant vs post DF c cage and graft (being clerared by Daph[facility] first 01/11/20) 08/25/19 + Butrans 5 patch change q7D and dcreased oxy 5 BID to 2.5 BID c improvement of pain 08/06/19 Akanksha cervical MRI c C6-7 large central HNP but large motion artifact, pelvic MRI NAD; therefore, CX/LS myelogram ordered 06/29/19 SS increased oxy 5 BID to 5 TID x 30D given increased pain, metho 500 TID to 750 TID 04/02/19 increased meth 250 BID to 500 TID and dced baclo for chronic paracerv/lumbar spasms 02/05/19 increased lower paralumbar pain p ambulance ride to [place] 02/04/[address] Omar melendez LLE radic pain to thigh s weakness, nor B/B dysfx; keep acute imaging which px refused, + celecox 200 BID x 5D c moderate improvement; therefore, will continue at 200 QD 12/09/18 Dr. Fabian also felt stable , no change of regimen 12/08/18 Dr. Vale felt stable and planned 12M fu apt; retried tizan 4 TID x 10D s benefit per patient; therefore, + LD metho 250 BID (12 500 tab) 11/2018 decreased oxy 5 QID to TID 10/30/17 Dr. 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 (ICD-10 - E11.329) Continue ADA diet/weight loss Would not use SGLT2i given recurrent UTI Contingency: glim, basal insulin (lactic acidosis c metfromin!) 04/12/20 6.2 03/18/20 lactic acid 7.7 s systemic illness; therefore, held met 1000 BID; 03/25/20 edith nto 1.7 03/01/20 5.7 (2 ~intentional 40 lb loss) 01/2019 7.2 10/2018 6.4 05/2018 gave new Flex and advised cb HBGs BID in 7D 01/2018 7.9; therefore, changed Victoza 1.2 QD to dulag 1.5 qW (for efficacy and convenience) 08/2017 6.5 02/2017 6.9 09/2016 decreased Victoza 1.8 to 1.2 QD given ~qW hypos to 60s-today in clinic symptomatic at 65-resolved p glucose tablet and 12 oz OJ 03/2016 7.1 08/2017 8 03/2016 8 11/2014 10 10/2011 ENIO/creatinine of 5 Oct, Iron deficiency anemia, unsp ecified iron deficiency anemia type (ICD-10 - D50.9) Contingency: UGI SBFT (given ho jejunal limb ulcer) 10/30/19 EGD/colon dim adeno p, otherwise WNL-R 05/27/20 12.0, 111, gaudencio 401, r41/2.9 05/05/20 again held asa 81 (defer holding jose given does help c severe chronic pain) and + q21D CBCD/RC/RP 04/26/20 8.9, 106, ferr 13; therefore, held asa/jose 200 QD (but were not held by SSV) and + 04/29 Injectafer 750 x 1 03/15/20 10.5, 104, r36/2.7 s supplement 10/30/19 EGD/colon-R-WNL Oct, Chronic diastolic congestive heart failure (ICD- 10 - I50.32) Euvolemic on fur 20 qAM, tera 100 BID Continue 1500FR, GINNY diet, daily AM dry wts to cb if >310 caution on chronic jose, claus c ESLD ascites (01/2016 LEVF 65% by cath) 03/01/20 17/1.1, 5.5; therefore, dc K 10 BID 02/08/20 11/1.0, 4.6, 1.7, BNP 57 on K 10 BID 01/2020 diruresed 10L during [facility] admission Oct, Vitamin B12 deficiency (ICD-10 - E53.8) c mild pancytopenia-favor 2 ESLD 03/01/20 11.9, 105, r13%, 16 12/17/19 stable at 9.5, 106, 6.5K, 167K 06/2019 11.0, 109, 6.2, 186K 02/2019 12.4, 106 01/2018 13.2, 106 08/2017 14.0, 108 05/05 >2000; therefore, dced 500 08/2019 1712 on 500 10/2018 409 on 500 08/2017 431 01/2017 1135 11/2015 >2000 on 1 mg QD; therefore decreased to 500 07/2014 417 06/2013 276 therefore restarted 1 mg daily 08/2019April 2011 RBC folate 791 s supplement 08/2019 SPEP s Toño dubois, Beronica MCB Oct, Opioid use disorder (ICD-10 - F11.99) as per lumbar DJD Oct, Allergic rhinitis, unspecified (ICD-10 - J30.9) Stable on FP 1 qAM, rowena 10 03/2019 increased to FP 1 to 2 qAM and + rowena 08/2013 apt c Chaparro referred by AM for 03/2013 CT sinuses c minimal L ethmoidal thickening Oct, Intertriginous candidiasis (ICD-10 - B37.2) Stable on nystatin cr BID 5D c flares-under B breast and periumbilical 02/2019 + nystatin cr BID 5D c flares Oct, Keratoconjunctivitis sicca (ICD-10 - M35.01) Stable on Restasis per Dr. Chowdhury (last visit 06/2017) 02/2019 referred back to [place] (for KCS and DM) Oct, Venous insufficiency (ICD-10 - I87.2) Encouraged daily BLE compression rx as per CHF edema 2 , HD claus/jose 12/2018 4.0, 1.8, 0.9 10/2018 4.4, 0.8, BNP 74 on fur 20 qAM, K 20 BID 03/2017 SS added fur 20 QD prn Oct, IBS (irritable bowel syndrome) (ICD-10 - K58.9) Stable on HE regimen and PG 17 QD prn 06/09/18 changed lactulose 15 BID prn, PG 17 QD prn, dul 100 QD, mineral oil QD prn, Imodium 2 TID prn to Amtiza 24 BID and doc 100 QD [id number] constipation 2 DM, narcotic use Oct, JETHRO (obstructive sleep apnea) (ICD-10 - G47.33) Patient refuses monet/rx 12/2018 now remits to [facility]; therefore, ordered, but patient CX 01/2018 check HST given severe DS, frequent nocturnal awakenings; but then refused Oct, Cervical cancer screening (ICD-10 - Z12.4) 04/2019 NILM Oct, Ataxia (ICD-10 - R27.0) Continues to use RW multi-factorial: 2 peripheral neuropathy (DM, diabetic), deconditioning, HE Oct, Overactive bladder (ICD-10 - N32.81) Stable off oxybut 5 BID 2 lumbar DJD/DM Oct, Hx of colonic polyp (ICD-10 - Z86.010) repeat colon 10/2024-R Oct, Coronary artery disease invo lving kotlik coronary artery of kotlik heart without angina pectoris (ICD-10 - I25.10) Patient remains asymptomatic 05/05/20 held asa 81 given severe Fe def anemia 10/30/17 Dr. Myles made fu prn Oct, Gastroesophageal reflux disease with eso phagitis (ICD-10 - K21.0) Stable on omep 40 BID Oct, Osteoarthritis of spine with radiculopathy, cervical region (ICD-10 - M47.22) rx as per lumbar DJD Oct, S/P gastric bypass (ICD-10 - Z98.84) No dumping symptoms B12/folate as per B12 01/2017 B1 184 01/2017 B6 8 (2-33) 01/2017 vitamin E 9 (5-17) Oct, Migraine without aura and wi thout status migrainosus, not intractable (ICD-10 - G43.009) Stable on [place] 10 QD prn follows with Dr. Fabian who fills triptan Oct, Chronic depression (ICD-10 - F32.9) c ANGELO Stable on buspir 30 BID, dulox as per lumbar DJD follows with Dr. Patel Oct, Primary insomnia (ICD-10 - F51.01) Stable on current regimen 05/2018 Amanda changed zol 5 to mo ER [address] Patel Oct, Neurogenic bladder (ICD-10 - N31.9) Continue clean intermittent self-catheterization 10 times a day 08/2015 referred to [facility] for neurogenic bladder for possible bladder synchronization surgery; but patient decided not to go and prefers to continue SISC Oct, Vitamin D deficiency, unspecified (ICD-10 - E55. 9) 08/2019 45, 8.8, 59 01/2018 58, 8.4, 47 02/2017 56, 8.9, 13 on Ca/vit D 600/400 BID Oct, Recurrent candidiasis of vagina (ICD-10 - B37.3) Stable on riya 200 PV x 3D c flares generalized hives c fluconazole Oct, Breast cancer screening (ICD-10 - Z12.39) 04/2020 B C1 mammogram Oct, Obesity (ICD-10 - E66.9) Enocuraged weight loss Oct, End stage liver disease (ICD-10 - K72.90) c secondary recurrent HE/varices 2 to NAFLD patient defers tx consideration (10/20/20 2016 MELD 8) PLAN OF TREATMENT Medication Medication Name Sig [...] gtt OU Ophthalmic Twice a day Nystatin 703300 UNIT/GM 1 application to affected ar ea [...] Tums 500 MG 1 tablet Orally bid Treatment Notes Assessment Notes Clinical Notes IBS (irritable bowel syndrome) Stable on HE regimen and PG 17 QD prn06/09/18 changed lactulose 15 BID prn, PG 17 QD prn, dul 100 QD, mineral oil QD prn, Imodium 2 TID prn to Amtiza 24 BID and doc 100 [id number] constipation 2 DM, narcotic use Venous insufficiency Encouraged daily BL E compressionrx as per CHFedema 2 , HD claus/cele2 4.0, 1.8, 0.912/2017 4.4, 0.8, BNP 74 on fur 20 qAM, K 20 BID03/2017 SS added fur 20 QD prn Cervical cancer screening 04/2019 NILM JETHRO (obstructive sleep apnea) Patient re fuses monet/rx12/2018 now remits to HST; therefore, ordered, but patient check HST given severe DS, frequent nocturnal awakenings; but then refused Overactive bladder Stable off oxybut 5 BID2 lumbar DJD/DM Ataxia Continues to use RWm ulti-factorial: 2 peripheral neuropathy (DM, diabetic), deconditioning, HE Coronary artery disease involving kotlik coronary artery of kotlik heart without angina pectoris Patient remains asymptomatic 05/05/20 held asa 81 given severe Fe def /20/17 Dr. Myles made fu prn Hx of colonic polyp repeat colon 10/2024 -R End stage liver disease c secondary recu rrent HE/varices2 to NAFLDpatient defers tx consideration (10/20/202015 MELD 8) Obesity Enocuraged weight lo ss Keratoconjunctivitis sicca Stable on Res tasis per Dr. Chowdhury (last visit 06/2017)02/2019 referred back to [place] (for KCS and DM) Intertriginous candidiasis Stable on nys tatin cr BID 5D c flares-under B breast and periumbilical02/2019 + nystatin cr BID 5D c flares Chronic depression c GADStable on buspi r 30 BID, dulox as per lumbar DJDfollows with Dr. Patel Hepatic encephalopathy on rifaximin 400 BID and lactulose 30 ml QIDC:10/20/20 NH3 123; therefore, avoid restarting statin and dc Butrans c repeat NH3 in 7D06/2020 admission for HE claus 600 TID and metho 500 TID hled03/15/20 today grade I-II HE; therefore, dc Butrans and decreased claus 900 QID to 600 TID c recheck MS in 3D02/08/20 76 at dc from [facility] for HE (was 66 on admission 02/07/20)-no infectious source, no medication changes made08/25/19 62 (before + Butrans)02/2019 70 c stable MS01/2019 84; therefore, encouraged compliance c regimen, nanette lactulose12/2018 84 on rifaximin 400 BID, lactulose 30 TID112/2017 NH3 5710/28-09/17/18 acute HE/elevated NH3 to 235 c 2 ataxia/falls-+ lactulose, rifax; ami, metho, zonis were held and claus decreased c resolved s CHRISTIANSEN FS: F2/S208/2019 PT/PTT AFP -Andre/AMA3/2018 - hepBsAg04/2017 - hep C Migraine without aura and without status migrainosus, not in tractable Stable on [place] [address] Fabian who fills triptan Mixed hyperlipidemia 10/20/20 51/51/70 a nd NH3 123 s statin; therefore, avoid use12/2018 70/40/198, 53/39/110, 53 on atorva 64/46/145 on atorva 65/47/164, CPK 52 (prior to statin) but given DM2 started Lipitor 0.9, 0. 1. 2.111/2009 TSH 0.9 Neurogenic bladder Continue clean inter mittent self-catheterization 10 times a day08/2015 referred to [facility] for neurogenic bladder for possible bladder synchronization surgery; but patient decided not to go and prefers to continue SISC Recurrent UTI Patient remains asym ptomatic off px /////cipro anaphalaxis05/05/20 asx UCX E coli >100K (given ho MDR E. faecium-plan rx ONLY c sx)04/20/20 UCX E faceium c dysuria; therefore, linez 600 BID 7D (R to all other po) and held cephalo px05/2019 UCX E coli res to nitro; changed to cephal 500 QHS09/16/18 UCX E coli >100K R to Bactrim; therefore, changed to nitro 50 QHS05/2017 UCX E coli >100K; therefore, changed Bactrim SS Primary insomnia Stable on current re gimen05/2018 Amanda changed zol 5 to mo ER [address] Patel DJD (degenerative joint disease), lumbar on dulox 60 BID (at MDD 120) (metho, claus, Butrans all held 2 HE)Now favoring surgical consideration offered by Dr. Vale 10/05/19c fibromylagia, h/o opioid use do02/2019 - H pylori AbContingency: titrate claus/meth, THC (defers 2 OOP cost); avoid acetomin given HE (caution sp gb), C3-7 DF per Negra follows with Dr. Fabian for CX/LS losjean carlos-LV 08/04/[address] Vale-LV 10/06/1912/10/20 NH3 123; therefore, Butrans 5 stopped06/2020 admission for HE claus 600 TID and metho 500 TID held05/05/20 restarted Butrans 5 given SEVERE intractable pain to use UNTIL Dr. Vale surgery-preop per patient 05/3112/18/19 given stable MS and baseline NH4 84 and px assurance that she will be compliant c lactulose; increased Butrans 5 to 10, claus 900 TID to 900 QID (MDD) an referred for LS OMT trial1/31/20 restarted Butrans 5 given severe chronic lumbar pain c reduction of meth 750 TID to 500 BID and understanding that patient is NOT to skip lactulose or we would have to dc Butrans again11/2019 held Butrans p admission for HE (mainly 2 non-compliance c lactulose)10/12/19 increased to 10 and dced oxy 2.5 BID10/05/19 Akanksha offered C3-7 ant vs post DF c cage and graft (being clerared by [facility] first 01/11/20)08/25/19 + Butrans 5 patch change q7D and dcreased oxy 5 BID to 2.5 BID c improvement of pain08/06/19 Akanksha cervical MRI c C6-7 large central HNP but large motion artifact, pelvic MRI NAD; therefore, CX/LS myelogram ordered06/29/19 SS increased oxy 5 BID to 5 TID x 30D given increased pain, metho 500 TID to 750 TID04/02/19 increased meth 250 BID to 500 TID and dced baclo for chronic paracerv/lumbar spasm02/05/19 increased lower paralumbar pain p ambulance ride to [place] 02/04/[address] Nelson c LLE radic pain to thigh s weakness, nor B/B dysfx; keep acute imaging which px refused, + celecox 200 BID x 5D c moderate improvement; therefore, will continue at 200 QD12/09/18 Dr. Fabian also felt stable , no change of regimen12/08/18 Dr. Vale felt stable and planned 12M fu apt; retried tizan 4 TID x 10D s benefit per patient; therefore, + LD metho 250 BID (2 500 tab)11/2018 decreased oxy 5 QID to TID112/31/16 Dr. Vale apt-stable cerv/lum xray-patient deferred any further surgical intervention-planned 1Y fu10/10/17-patient decreased self oxy 10 QID to 7.5 QID1 increased to Percocet 10/325 TID to 10/325 QID, changed naprosyn 500 BID to Celebrex 200 QD given sp gb (high GI bleed risk)08/15- [facility] admission for chronic intractable lumbar pain-08/2017 MRI intact L4/5 fusion s CCS nor NFS, sp SIJI 08/19/17 by Megan jimenez improvement, changed to Percocet 5/325 2 TID c adequate pain control through day, but sever qhs Recurrent candidiasis of vagina Stable o n riya 200 PV x 3D c flaresgeneralized hives c fluconazole Type 2 diabetes mellitus wit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 Continue ADA diet/weight los sWould not use SGLT2i given recurrent UTIContingency: glim, basal insulin (lactic acidosis c metfromin!)04/12/20 6./06/30 lactic acid 7.7 s systemic illness; therefore, held met 1000 BID; 03/25/20 edith nto 1.74 5.7 (2 ~intentional 40 lb loss)01/2019 7. 6. gave new Flex and advised cb HBGs BID in 7D01/2018 7.9; therefore, changed Victoza 1.2 QD to dulag 1.5 qW (for efficacy and convenience)08/2017 6. 6.9111/2015 decreased Victoza 1.8 to 1.2 QD given ~qW hypos to 60s-today in clinic symptomatic at 65-resolved p glucose tablet and 12 oz OJ03/2016 7. 101/2010 ENIO/creatinine of 5 Vitamin D deficiency, unspecified 9 45, 8.8, 593 58, 8.4, 56, 8.9, 13 on Ca/vit D 600/400 BID Iron deficiency anemia, unspecified iron deficiency anemia t ype Contingency: UGI SBFT (given ho jejunal limb ulcer)10/30/19 EGD/colon dim adeno p, otherwise WNL-05/27/20 12.0, 111, gaudencio 401, r41/2. again held asa 81 (defer holding jose given does help c severe chronic pain) and + q21D CBCD/RC/RP04/26/20 8.9, 106, ferr 13; therefore, held asa/jose 200 QD (but were not held by SSV) and + 04/29 Injectafer 750 x 25/03/20 10.5, 104, r36/2.7 s srlskwigtn67/20/19 E GD/colon-R-WNL Chronic diastolic congestive heart failure Euvolemic on fur 20 qAM, tera 100 BIDContinue 1500FR, GINNY diet, daily AM dry wts to cb if >310caution on chronic jose, gabac ESLD ascites (01/2016 LEVF 65% by cath)03/01/20 17/1.1, 5.5; therefor e, dc K 10 BID02/08/20 11/1.0, 4.6, 1.7, BNP 57 on K 10 BID01/2020 diruresed 10L during [facility] admission Breast cancer screening 04/2020 B C1 mamm ogram Gastroesophageal reflux disease with esophagitis Stable on omep 40 BID S/P gastric bypass No dumping symptomsB 12/folate as per B1201/2017 B1 B6 8 (2-33)01/2017 vitamin E 9 (5-17) Osteoarthritis of spine with radiculopathy, cervical region rx as per lumbar DJD Vitamin B12 deficiency c mild pancytopen ia-favor 2 ESLD03/01/20 11.9, 105, r13%, 162/04/30 stable at 9.5, 106, 6.5K, 167K8 11.0, 109, 6.2, 186K4/2018 12.4, 1063/2017 13.2, 72536/2016 14.0, 1086/25 >2000; therefore, dced 1712 on 4994310/2018 409 on 43101/2017 78145/2016 >2000 on 1 mg QD; [place] [address]/2013 276 therefore restarted 1 mg daily08/2019 625June 2010 RBC folate 791 s kahbfviztx28/2019 SPEP s M spike, sIFE MCB Opioid use disorder as per lumbar DJD Allergic rhinitis, unspecified Stable on FP 1 qAM, rowena increased to FP 1 to 2 qAM and + lor08/2013 apt c [facility] referred by AM for 03/2013 CT sinuses c minimal L ethmoidal thickening Treatment Notes Test Name Order Date [facility] LIVER US 2020-10-28 Next Appt Details 30 minutes 3M, BW NOW Reason: Provider Name:Andrew Beck, 2020-12-30 0 1:30:00 PM, [address] [place], [address], Provider Name:Andrew Beck, 2021-02-03 0 3:15:00 PM, [address] [place], [address], Insurance Providers Payer Name Payer Address Payer Phone Insured Name Patient Relati onship to Insured Coverage Start Date Coverage End Date MEDICARE Part A and B [address] [facility] [address] [phone] SANIYA EVANS [facility] [address] [facility] [address] SANIYA EVANS
--- OUTSIDE RECORDS SUMMARY | 2021-01-03 16:56 | CCD ---
Author Author [facility] Organization [facility] Address Unknown Phone Unavailable Care Team Providers Care Jewelry Department Supervisor Name Role Phone Andrew Beck Unavailable PROBLEMS Type Condition ICD9-CM Code [id number] Code Onset Dates Condition S tatus SNOMED Code Notes Problem Neurogenic bladder N31.9 Active 302928535 Problem Recurrent UTI N39.0 Active 497753163 Problem Breast cancer screening Z12.39 Active 72424476 6 Problem Obesity E66.9 Active 997579987 Problem IBS (irritable bowel syndrome) K58.9 Active 1 5255015 Problem Osteoarthritis of spine with radiculopathy, cervical regio n M47.22 Active 957501251 Problem Coronary artery disease invo lving [place] coronary artery of [place] heart without angina pectoris I25.10 Active 903553412495 7 Problem Hepatic encephalopathy K72.90 Active 48588748 Problem 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 E11.329 Active 479202187 Problem CHRISTIANSEN (nonalcoholic steatohepatitis) K75.81 Acti ve 988163456 Problem Vitamin D deficiency, unspecified E55.9 Active 96510818 Problem Recurrent candidiasis of vagina B37.3 Active 666627038 Problem Allergic rhinitis, unspecified J30.9 Active 6 6210002 Problem Migraine without aura and without status migrain osus, not intractable G43.009 Active 736689406 Problem Primary insomnia F51.01 Active 8062372 Problem Hx of colonic polyp Z86.010 Active 661089732 Problem Chronic depression F32.9 Active 231535990 Problem Overactive bladder N32.81 Active 379100298 Problem Vitamin B12 deficiency E53.8 Active 716042376 Problem JETHRO (obstructive sleep apnea) G47.33 Active 78 017320 Problem Osteoarthritis of spine with radiculopathy, lumbar region M47.26 Active 133405078 Problem Mixed hyperlipidemia E78.2 Active 279858652 Problem Ataxia R27.0 Active 17723407 Problem DJD (degenerative joint disease), lumbar M47.816 Active 791372219 Problem Keratoconjunctivitis sicca M35.01 Active 77911 3118 Problem Intertriginous candidiasis B37.2 Active 58449 8001 Problem Cervical cancer screening Z12.4 Active 833729 001 Problem Iron deficiency anemia, unspecified iron deficiency an emia type D50.9 Active 72036676 Problem S/P gastric bypass Z98.84 Active 173473667 Problem End stage liver disease K72.90 Active 98872240 4 Problem Gastroesophageal reflux disease with esophagitis K 21.0 Active 310193355 Problem Venous insufficiency I87.2 Active 55276798 Problem Opioid use disorder F11.99 Active 1989750 Problem Agitation R45.1 Active 555196048 Problem Chronic diastolic congestive heart failure I50.32 Active 164463239 Problem Other ascites R18.8 Active 938986846 ALLERGIES Allergen (clinical drug ingredient) Drug/Non Drug Allergy do cumented on EMR Reaction Allergy Type Onset Date Status Latex (for allergy use only) Rash Drug Allergy Active ciprofloxacin Cipro(NDC Code:[address]-60) Anaphylaxis Drug Allergy Active metformin lactic acidosis Non Drug Allergy Act judith fluconazole Diflucan(NDC Code:[address]-49) hives Drug Allergy Active ENCOUNTERS from 1961 to 2020-11-21 Encounter Location Date Provider Diagnosis [address] [address] Nov, 021 Andrew Kiran Migraine without aura and without status migrainosus, not intractable G43.009 and Type 2 diabetes mellitus wit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 E11.329 IMMUNIZATIONS Vaccine Route Administration Date Status Influenza [...] Education Language: Question Answer Notes Languages spoken: Occitan Catholic: Question Answer Notes Catholic 08 Mormon Sexual Hx: Question Answer Notes Had sex [...] Notes Start Da te End Date Status Tums 500 MG 1 tablet Orally bid Acti ve Lidocaine HCl 4 % 1 application, to neck, back or legs prn Externally every 4 hours as needed Jan, Active Catheter straight disposable straight # 14 Fr catheter 10 per day for 30 day(s) Active May have ___ bed side rail _ once daily for 99 months 26 J 2016 Active Fluticasone Propionate 50 MCG/ACT 2 sprays in each nos tril Nasally every morning for 90 day(s) Active Pen [place] 5/16" 31G X 8 MM 1 needle [...] Twice a day for 30 days Active One Touch Ultra 2 Lancet - 1 subcutaneously Twice a day DX 2 50.01 for 30 day(s) Active One Touch Ultra Test Strips - 1 subcutaneously Twice a day 2 50.01 for 30 day(s) Active Spironolactone 100 MG 1 tablet Orally twice daily Active Lasix 20 MG 1 tablet Orally Once a day for 30 Days Active Depend Underwear Large Dx: 596.54 as directed _N31.9 F our times a day for 30 days Active BusPIRone HCl 30 MG 1 tablet Orally Twice a day Active Vitamin D3 400 UNIT 1 capsules Orally bid for 30 Days Active Nystatin 295669 UNIT/GM 1 application to affected ar ea Externally Twice a day x 5 days to umbilidcus rash flare for 30 day(s) Active Restasis 0.05 % 1 gtt OU Ophthalmic Twice a day Active EQL Miconazole 3 200 & 2 [...] Information RESULTS No Results REASON FOR VISIT rizatriptan MEDICAL (GENERAL) HISTORY Type Description Date Medical History anemia secondary to B12 defi ciency and chronic kidney disease//chronic macrocytosis s anemia- 03/1999 MCV 106 Medical History T2DM insulin requiring-01/2016 SPECT-low risk-[facility] Medical History neurogenic bladder status po st [...] morbid status post gastric bypass 2004 at [facility], Dr. Case Medical History dyspepsia/GERD/ho [...] Medical History cervical DJD s/p C4-6 ACDF 08/10/15-[place] Medical History minimal CAD-20% RCA stenosis , LVEF 60% by 02/02/16 [id number]-Hx. [place] Medical History Tyrer Cuzick score 8.83 % Surgical History cholecystectomy Surgical History back surgery Surgical History gastric bypass 2003 Surgical History colonoscopy/EGD 2014 Surgical History appendectomy Surgical History C4-6 VSFY-Snr-Nidqmzwybo 08/10/15 Surgical History L3-S1 PDF, L4/5 interbody [...] NG, -UA, no med changes made at [place] 03/09- Goals Section No Information Health Concerns No Information MEDICAL EQUIPMENT No Information MENTAL STATUS No Information FUNCTIONAL STATUS No Information ASSESSMENTS Encounter Date Diagnosis Assessment Notes Treatment Notes Treatm ent Clinical Notes Nov, Migraine without aura and wi thout status migrainosus, not intractable (ICD-10 - G43.009) Nov, 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 (ICD-10 - E11.329) PLAN OF TREATMENT Medication Medication Name Sig [...] day DX 2 50.01 for 30 day(s) Fluticasone Propionate 50 MCG/ACT 2 sprays in each nos tril Nasally every morning for 90 day(s) One Touch Ultra Test Strips - 1 subcutaneously Twice a day 2 50.01 for 30 day(s) Polyethylene Glycol - 17 G (one capful) orally daily prn constip ation Restasis 0.05 % 1 gtt OU Ophthalmic Twice a day Nystatin 767142 UNIT/GM 1 application to affected ar ea Externally Twice a day x 5 days to umbilidcus rash flare for 30 day(s) Spironolactone 100 MG 1 tablet Orally twice daily Rizatriptan Benzoate 10 MG 1 tablet as needed one time Orally Once a day as needed for 30 days Voltaren 1 % 4 gms to cervical/lumbar spi ne Transdermal Four times a day ` for 30 day(s) Lactulose 10 GM/15ML 30 ml Orally qid BusPIRone HCl 30 MG 1 tablet Orally Twice a day Vitamin D3 400 UNIT 1 capsules Orally bid for 30 Days Duloxetine HCl 60 MG 1 capsule Orally Twice a day for 30 days Vitamin B-12 500 MCG 1 tablet Orally Once a day for 30 day(s) Lasix 20 MG 1 tablet Orally Once a day for 30 Days Tums 500 MG 1 tablet Orally bid Catheter straight disposable straight # 14 Fr catheter 10 per day for 30 day(s) Next Appt Details Provider Name:Andrew Beck, 2020-12-30 0 1:30:00 PM, [address] [place] [address], [phone], Provider Name:Andrew Beck, 2021-02-03 0 3:15:00 PM, [address] [place] [address], [phone], Insurance Providers Payer Name Payer Address Payer Phone Insured Name Patient Relati onship to Insured Coverage Start Date Coverage End Date [facility] [address] [facility] [phone] SANIYA EVANS self MEDICARE Part A and B [address] [facility] [address] [phone] SANIYA EVANS self
--- OUTSIDE RECORDS SUMMARY | 2021-01-03 16:56 | CCD ---
Author Author [facility] Organization [facility] Address Unknown Phone Unavailable Care Team Providers Care Station Mechanic Apprentice Name Role Phone Andrew Beck Unavailable PROBLEMS Type Condition ICD9-CM Code OWB89-HF Code Onset Dates Condition S tatus SNOMED Code Notes Problem Neurogenic bladder N31.9 Active 884045054 Problem Recurrent UTI N39.0 Active 826702240 Problem Breast cancer screening Z12.39 Active 98799700 6 Problem Obesity E66.9 Active 342770910 Problem IBS (irritable bowel syndrome) K58.9 Active 1 4421592 Problem Osteoarthritis of spine with radiculopathy, cervical regio n M47.22 Active 717617180 Problem Coronary artery disease invo lving [place] coronary artery of [place] heart without angina pectoris I25.10 Active 839673135688 7 Problem Hepatic encephalopathy K72.90 Active 29801191 Problem 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 E11.329 Active 893153655 Problem CHRISTIANSEN (nonalcoholic steatohepatitis) K75.81 Acti ve 610976102 Problem Vitamin D deficiency, unspecified E55.9 Active 72294332 Problem Recurrent candidiasis of vagina B37.3 Active 691747026 Problem Allergic rhinitis, unspecified J30.9 Active 6 7414945 Problem Migraine without aura and without status migrain osus, not intractable G43.009 Active 677573146 Problem Primary insomnia F51.01 Active 3724205 Problem Hx of colonic polyp Z86.010 Active 887545808 Problem Chronic depression F32.9 Active 804945001 Problem Overactive bladder N32.81 Active 241362118 Problem Vitamin B12 deficiency E53.8 Active 362843346 Problem JETHRO (obstructive sleep apnea) G47.33 Active 78 359973 Problem Osteoarthritis of spine with radiculopathy, lumbar region M47.26 Active 749787679 Problem Mixed hyperlipidemia E78.2 Active 625807266 Problem Ataxia R27.0 Active 04849313 Problem DJD (degenerative joint disease), lumbar M47.816 Active 534928015 Problem Keratoconjunctivitis sicca M35.01 Active 52618 5968 Problem Intertriginous candidiasis B37.2 Active 19752 8001 Problem Cervical cancer screening Z12.4 Active 375913 001 Problem Iron deficiency anemia, unspecified iron deficiency an emia type D50.9 Active 33455405 Problem S/P gastric bypass Z98.84 Active 703738158 Problem End stage liver disease K72.90 Active 60509919 4 Problem Gastroesophageal reflux disease with esophagitis K 21.0 Active 678418543 Problem Venous insufficiency I87.2 Active 60985341 Problem Opioid use disorder F11.99 Active 5019854 Problem Agitation R45.1 Active 800303981 Problem Chronic diastolic congestive heart failure I50.32 Active 020857132 Problem Other ascites R18.8 Active 492173315 ALLERGIES Allergen (clinical drug ingredient) Drug/Non Drug Allergy do cumented on EMR Reaction Allergy Type Onset Date Status Latex (for allergy use only) Rash Drug Allergy Active ciprofloxacin Cipro(ND Code:[address]-27) Anaphylaxis Drug Allergy Active metformin lactic acidosis Non Drug Allergy Act judith fluconazole Diflucan(ND Code:[address]-83) hives Drug Allergy Active ENCOUNTERS from 1961 to 2020-11-22 Encounter Location Date Provider Diagnosis [address] [address] Nov, 021 Andrew Beck IMMUNIZATIONS Vaccine Route [...] Education Language: Question Answer Notes Languages spoken: Argentine Buddhism: Question Answer Notes [employer] 08 [employer] Sexual Hx: Question Answer Notes Had sex [...] every morning for 90 day(s) Active Pen [place] 5/16" 31G X 8 MM 1 needle [...] a day for 30 Days Active Nystatin 887260 UNIT/GM 1 application to affected ar ea [...] Information RESULTS No Results REASON FOR VISIT ultrasound results/ A1C/ AND PAIN MEDS? MEDICAL (GENERAL) HISTORY Type Description Date Medical History anemia secondary to B12 defi ciency and chronic kidney disease//chronic macrocytosis s anemia- 03/1999 MCV 106 Medical History T2DM insulin requiring-01/2016 SPECT-low risk-[facility] Medical History neurogenic bladder status po [...] morbid status post gastric bypass 2004 at [facility], Dr. Case Medical History dyspepsia/GERD/ho [...] Medical History cervical DJD s/p C4-6 ACDF 08/10/15-[place] Medical History minimal CAD-20% RCA stenosis , LVEF 60% by 02/02/16 [id number]-WYP-Af. [place] Medical History Tyrer Cuzick score 8.83 % Surgical History cholecystectomy Surgical History back surgery Surgical History gastric bypass 2003 Surgical History colonoscopy/EGD 2014 Surgical History appendectomy Surgical History C4-6 [id number]-Pmt-Ovkdelhhsl 08/10/15 Surgical History L3-S1 PDF, L4/5 interbody [...] NG, -UA, [place] med changes [place] 03/09- Goals Section No Information Health Concerns [...] 500 MG 1 tablet Orally bid Nystatin 968474 UNIT/GM 1 application to affected ar ea [...] day(s) Nov, Next Appt Details Provider Name:Andrew Britni Kiran, 2020-12-30 0 1:30:00 PM, [address] [place] [address], [phone], Provider Name:Andrew Britni Kiran, 2021-02-03 0 3:15:00 PM, [address] [place] [address], [phone], Insurance Providers Payer Name Payer Address Payer Phone Insured Name Patient Relati onship to Insured Coverage Start Date Coverage End Date MEDICARE Part A and B [address] [facility] [id number] SANIYA EVANS [facility] [address] [facility] [phone] SANIYA EVANS
--- OUTSIDE RECORDS SUMMARY | 2021-01-03 16:56 | CCD ---
Author Author [facility] Organization [facility] Address Unknown Phone Unavailable Care Team Providers Care Bottom Liquor Attendant Name Role Phone Andrew Beck Unavailable PROBLEMS Type Condition ICD9-CM Code [id number] Code Onset Dates Condition S tatus W/U Status Risk SNOMED Code Notes Problem Breast cancer screening Z12.39 Active confirmed 002560947 Problem IBS (irritable bowel syndrome) K58.9 Active confir med 86342644 Problem Recurrent UTI N39.0 Active confirmed 708048 001 Problem Coronary artery disease invo lving [place] coronary artery of [place] heart without angina pectoris I25.10 Active confirmed 619120 2457057 Problem Obesity E66.9 Active confirmed 532994912 Problem Gastroesophageal reflux disease with esophagitis K 21.0 Active confirmed 760879410 Problem Osteoarthritis of spine with radiculopathy, cervical regio n M47.22 Active confirmed 434567217 Problem Keratoconjunctivitis sicca M35.01 Active confirmed 424854324 Problem Allergic rhinitis, unspecified J30.9 Active confir med 82403712 Problem Hepatic encephalopathy K72.90 Active confirmed 85058150 Problem 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 E11.329 Active confirmed 33585693 2 Problem Neurogenic bladder N31.9 Active confirmed 3 56815340 Problem Recurrent candidiasis of vagina B37.3 Active confi rmed 182610159 Problem Chronic depression F32.9 Active confirmed 1 97743130 Problem Migraine without aura and without status migrain osus, not intractable G43.009 Active confirmed 941778614 Problem JETHRO (obstructive sleep apnea) G47.33 Active confirm ed 66574219 Problem Hx of colonic polyp Z86.010 Active confirmed 544855804 Problem Ataxia R27.0 Active confirmed 84156593 Problem DJD (degenerative joint disease), lumbar M47.816 Active confirmed 264804038 Problem Overactive bladder N32.81 Active confirmed 2 03007712 Problem Vitamin B12 deficiency E53.8 Active confirmed 369438897 Problem CHRISTIANSEN (nonalcoholic steatohepatitis) K75.81 Acti ve confirmed 311466981 Problem Vitamin D deficiency, unspecified E55.9 Active con firmed 26756532 Problem Osteoarthritis of spine with radiculopathy, lumbar region M47.26 Active confirmed 592772712 Problem Mixed hyperlipidemia E78.2 Active confirmed 027468821 Problem Intertriginous candidiasis B37.2 Active confirmed 849437775 Problem Cervical cancer screening Z12.4 Active confirmed 063582467 Problem Opioid use disorder F11.99 Active confirmed 3770074 Problem End stage liver disease K72.90 Active confirmed 328056992 Problem Venous insufficiency I87.2 Active confirmed 19269877 Problem Insomnia disorder with non-sleep disorder mental comorbidi ty G47.00 Active confirmed 04665119 Problem S/P gastric bypass Z98.84 Active confirmed 6 89052427 Problem Primary insomnia F51.01 Active confirmed 397 2004 Problem Agitation R45.1 Active confirmed 362931299 Problem Chronic diastolic congestive heart failure I50.32 Active confirmed 566295916 Problem Other ascites R18.8 Active confirmed 339842 000 Problem Iron deficiency anemia, unspecified iron deficiency an emia type D50.9 Active confirmed 00596957 ALLERGIES Allergen (clinical drug ingredient) Drug/Non Drug Allergy do cumented on EMR Reaction Allergy Type Onset Date Status Latex (for allergy use only) Rash Drug Allergy Active ciprofloxacin Cipro(NDC Code:[address]-04) Anaphylaxis Drug Allergy Active metformin lactic acidosis Non Drug Allergy Act judith fluconazole Diflucan(NDC Code:[address]-63) hives Drug Allergy Active ENCOUNTERS from 1961 to 2020-12-20 Encounter Location Date Provider Diagnosis [facility] Urology [address] [place] [address] 08 Dec, 2020 Andrew Kiran Hepatic encephalopathy K72.90 ; Gastroesophageal reflux disease with esophagitis K21.0 ; Chronic diastolic congestive heart failure I50.32 and Vitamin D deficiency, unspecified E55.9 IMMUNIZATIONS Vaccine Route Administration Date Status Influenza [...] Education Language: Question Answer Notes Languages spoken: Rwandan Episcopal: Question Answer Notes Episcopal 08 Faith Sexual Hx: Question Answer Notes Had sex [...] Notes Start Da te End Date Status Depend Underwear Large Dx: 596.54 as directed _N31.9 F our times a day for 30 days Active Omeprazole 40mg 40 mg 1 tablet by mouth AC bid for 30 day(s) Active Nystatin 294877 UNIT/GM 1 application to affected ar ea Externally Twice a day x 5 days to umbilidcus rash flare for 30 day(s) Active Tums 500 MG 1 tablet Orally bid for 30 Days Active Lactulose 10 GM/15ML 30 ml Orally qid for 30 Days Active May have ___ bed side rail _ once daily for 99 months J 2015 Active Melatonin 1 MG 1 capsule at bedtime as need ed Orally before bedtime for 30 day(s) Dec, Active Restasis 0.05 % 1 gtt OU Ophthalmic Twice a day Active Spironolactone 100 MG 1 tablet Orally twice daily for 30 Days Active Lasix 20 MG 1 tablet Orally Once a day for 30 Days Active Lidocaine HCl 4 % 1 application, to neck, back or legs prn Externally every 4 hours as needed Jan, Active Gabapentin 100 MG 1 capsule Orally three times daily for pain fo r 30 day(s) Nov, Active Voltaren 1 % 4 gms to cervical/lumbar spi ne Transdermal Four times a day ` for 30 day(s) Active Catheter straight disposable straight # 14 Fr catheter 10 per day for 30 day(s) Active Vitamin B-12 500 MCG 1 tablet Orally Once a day for 30 day(s) Active BusPIRone HCl 30 MG 1 tablet Orally Twice a day Active Fluticasone Propionate 50 MCG/ACT 2 sprays in each nos tril Nasally every morning for 90 day(s) Active Pen [place] 5/16" 31G X 8 MM 1 needle subcutaneous Wee get c pen ICD E11.9 for 90 day(s) Apr, Active One Touch Ultra 2 Lancet - 1 subcutaneously Twice a day DX 2 50.01 for 30 day(s) Active Polyethylene Glycol - 17 G (one capful) orally daily prn constipation Active Spironolactone 50 MG 1 tablet Orally bid Jan, Active Humidifier - as directed DX: J30.9 Daily for 99 months Jan, Active Duloxetine HCl 60 MG 1 capsule Orally Twice a day for 30 days Active One Touch Ultra Test Strips - 1 subcutaneously Twice a day 2 50.01 for 30 day(s) Active Rolling Walker 1 with 4 wheels and a seat DX: M47.22/ M47.816 Daily for 99 months Nov, Active Vitamin D3 400 UNIT 1 capsules Orally bid for 30 Days Active EQL Miconazole 3 200 & 2 MG (9GM) as directed Vaginal Daily for 3 days May, Active Loratadine 10 MG 1 tablet Orally Once a day for 90 day(s) Active Rizatriptan Benzoate 10 MG 1 tablet as needed one time Orally Once a day as needed for 30 days Active Trulicity 1.5 MG/0.5ML as directed Subcutaneous every 7 days for 30 day(s) Active Rifaximin 200 MG 2 tablet Orally bid Active PROCEDURES No Information RESULTS No Results REASON FOR VISIT medication refills MEDICAL (GENERAL) HISTORY Type Description Date Medical [...] morbid status post gastric bypass 2004 at [facility], Dr. Case Medical History dyspepsia/GERD/ho [...] Medical History cervical DJD s/p C4-6 ACDF 08/10/15-[place] Medical History minimal CAD-20% RCA stenosis , LVEF 60% by 02/02/16 [id number] [place] Medical History Tyrer Cuzick score 8.83 % Surgical History cholecystectomy Surgical History back surgery Surgical History gastric bypass 2003 Surgical History colonoscopy/EGD 2014 Surgical History appendectomy Surgical History C4-6 [id number] 08/10/15 Surgical History L3-S1 PDF, L4/5 interbody [...] Treatment Notes Treatm ent Clinical Notes Dec, Hepatic encephalopathy (ICD-10 - K72.90) Dec, Gastroesophageal reflux disease with eso phagitis (ICD-10 - K21.0) Dec, Chronic diastolic congestive heart failure (ICD- 10 - I50.32) Dec, Vitamin D deficiency, unspecified (ICD-10 - E55. 9) PLAN OF TREATMENT Medication Medication Name Sig Start Date Stop Date Trulicity 1.5 MG/0.5ML as directed Subcutaneous every 7 days for 30 day(s) Rifaximin 200 MG 2 tablet Orally bid Rizatriptan Benzoate 10 MG 1 tablet as needed one time Orally Once a day as needed for 30 days Loratadine 10 MG 1 tablet Orally Once a day for 90 day(s) Catheter straight disposable straight # 14 Fr catheter 10 per day for 30 day(s) Spironolactone 100 MG 1 tablet Orally twice daily for 30 Days Vitamin B-12 500 MCG 1 tablet Orally Once a day for 30 day(s) Omeprazole 40mg 40 mg 1 tablet by mouth AC bid for 30 day(s) Gabapentin 100 MG 1 capsule Orally three times daily for p ain for 30 day(s) Nov, Melatonin 1 MG 1 capsule at bedtime as need ed Orally before bedtime for 30 day(s) Dec, One Touch Ultra Test Strips - 1 subcutaneously Twice a day 2 50.01 for 30 day(s) BusPIRone HCl 30 MG 1 tablet Orally Twice a day Lasix 20 MG 1 tablet Orally Once a day for 30 Days Vitamin D3 400 UNIT 1 capsules Orally bid for 30 Days One Touch Ultra 2 Lancet - 1 subcutaneously Twice a day DX 2 50.01 for 30 day(s) Polyethylene Glycol - 17 G (one capful) orally daily prn constip ation Duloxetine HCl 60 MG 1 capsule Orally Twice a day for 30 days Voltaren 1 % 4 gms to cervical/lumbar spi ne Transdermal Four times a day ` for 30 day(s) Nystatin 316027 UNIT/GM 1 application to affected ar ea Externally Twice a day x 5 days to umbilidcus rash flare for 30 day(s) Fluticasone Propionate 50 MCG/ACT 2 sprays in each nos tril Nasally every morning for 90 day(s) Lactulose 10 GM/15ML 30 ml Orally qid for 30 Days Tums 500 MG 1 tablet Orally bid for 30 Days Restasis 0.05 % 1 gtt OU Ophthalmic Twice a day Next Appt Details Provider Name:Andrew Beck, 2020-12-26 1 1:15:00 AM, [facility] [place], [address], Provider Name:Andrew Beck, 2021-02-03 0 3:15:00 PM, [address] [place], [address], Insurance Providers Payer Name Payer Address Payer Phone Insured Name Patient Relati onship to Insured Coverage Start Date Coverage End Date [facility] [address] [facility] [address] SANIYA EVANS MEDICARE Part A and B [address] [facility] [address] [phone] SANIYA EVANS
--- OUTSIDE RECORDS SUMMARY | 2021-01-03 16:56 | CCD ---
Author Author [facility] Organization [facility] Address Unknown Phone Unavailable Care Team Providers Care Machine Tool Operator Name Role Phone Andrew Beck Unavailable PROBLEMS Type Condition ICD9-CM Code [id number] Code Onset Dates Condition S tatus SNOMED Code Notes Problem Neurogenic bladder N31.9 Active 800525414 Problem Recurrent UTI N39.0 Active 282704150 Problem Breast cancer screening Z12.39 Active 99585046 6 Problem Obesity E66.9 Active 941328496 Problem IBS (irritable bowel syndrome) K58.9 Active 1 6822811 Problem Osteoarthritis of spine with radiculopathy, cervical regio n M47.22 Active 155158432 Problem Coronary artery disease invo lving [place] coronary artery of [place] heart without angina pectoris I25.10 Active 644896689923 7 Problem Hepatic encephalopathy K72.90 Active 01669276 Problem 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 E11.329 Active 281774700 Problem CHRISTIANSEN (nonalcoholic steatohepatitis) K75.81 Acti ve 834024776 Problem Vitamin D deficiency, unspecified E55.9 Active 86919792 Problem Recurrent candidiasis of vagina B37.3 Active 431980514 Problem Allergic rhinitis, unspecified J30.9 Active 6 8801200 Problem Migraine without aura and without status migrain osus, not intractable G43.009 Active 699620575 Problem Primary insomnia F51.01 Active 9304996 Problem Hx of colonic polyp Z86.010 Active 139733409 Problem Chronic depression F32.9 Active 249561124 Problem Overactive bladder N32.81 Active 441101772 Problem Vitamin B12 deficiency E53.8 Active 457146476 Problem JETHRO (obstructive sleep apnea) G47.33 Active 78 638466 Problem Osteoarthritis of spine with radiculopathy, lumbar region M47.26 Active 673259771 Problem Mixed hyperlipidemia E78.2 Active 502747846 Problem Ataxia R27.0 Active 72503954 Problem DJD (degenerative joint disease), lumbar M47.816 Active 322557364 Problem Keratoconjunctivitis sicca M35.01 Active 55695 8455 Problem Intertriginous candidiasis B37.2 Active 42994 8001 Problem Cervical cancer screening Z12.4 Active 357596 001 Problem Iron deficiency anemia, unspecified iron deficiency an emia type D50.9 Active 99792238 Problem S/P gastric bypass Z98.84 Active 725679361 Problem End stage liver disease K72.90 Active 79180400 4 Problem Gastroesophageal reflux disease with esophagitis K 21.0 Active 817674695 Problem Venous insufficiency I87.2 Active 52941758 Problem Opioid use disorder F11.99 Active 9011470 Problem Agitation R45.1 Active 603616972 Problem Chronic diastolic congestive heart failure I50.32 Active 576011591 Problem Other ascites R18.8 Active 784356620 ALLERGIES Allergen (clinical drug ingredient) Drug/Non Drug Allergy do cumented on EMR Reaction Allergy Type Onset Date Status Latex (for allergy use only) Rash Drug Allergy Active ciprofloxacin Cipro(ND Code:[address]-05) Anaphylaxis Drug Allergy Active metformin lactic acidosis Non Drug Allergy Act judith fluconazole Diflucan(ND Code:[address]-78) hives Drug Allergy Active ENCOUNTERS from 1961 to 2020-11-14 Encounter Location Date Provider Diagnosis [address] [place] [address] Oct, 020 Andrew Beck Hepatic encephalopathy K72.90 IMMUNIZATIONS Vaccine Route Administration Date Status Influenza (18 yrs & older) Flublok IM Intramuscular Oct 20, 2020 Administered Influenza (18 yrs & older) Flublok IM Intramuscular Nov 20, 2018 Administered Influenza (6mo & up) Fluzone IM Intramuscular Aug 01, 2015 Ad ministered Influenza (6mo & up) Fluzone IM Intramuscular Aug 02, 2014 Ad ministered Influenza (18 yrs & older) [...] Education Language: Question Answer Notes Languages spoken: Croatian Yarsanism: Question Answer Notes Yarsanism 08 Yarsanism Sexual Hx: Question Answer Notes Had sex [...] every morning for 90 day(s) Active Pen [place] 5/16" 31G X 8 MM 1 needle [...] a day for 30 Days Active Nystatin 376113 UNIT/GM 1 application to affected ar ea [...] Information RESULTS No Results REASON FOR VISIT Pain MEDICAL (GENERAL) HISTORY Type Description Date Medical History anemia secondary to B12 defi ciency and chronic kidney disease//chronic macrocytosis s anemia- 03/1999 MCV 106 Medical History T2DM insulin requiring-01/2016 SPECT-low risk-[facility] Medical History neurogenic bladder status po [...] morbid status post gastric bypass 2004 at [facility], Dr. Case Medical History dyspepsia/GERD/ho jejunal [...] RCA stenosis , LVEF 60% by 02/02/16 [id number] Medical History Tyrer Cuzick score 8.83 % Surgical History cholecystectomy Surgical History back surgery Surgical History gastric bypass 2003 Surgical History colonoscopy/EGD 2014 Surgical History appendectomy Surgical History C4-6 [id number] 08/10/15 Surgical History L3-S1 PDF, L4/5 [facility]body cage[facility] 07/[facility]/16 Surgical History L femoral neck fracture s/p fall s/p IM nail placement-Dr. Sun-[facility] 07/26/16 Hospitalization History spine 08/17/17-08/30/17 Hospitalization History [...] Notes Oct, Hepatic encephalopathy (ICD-10 - K72.90) PLAN OF TREATMENT Medication Medication Name Sig [...] gtt OU Ophthalmic Twice a day Nystatin 605462 UNIT/GM 1 application to affected ar ea [...] MG 1 tablet Orally bid Treatment Notes Test Name Order Date Comprehensive Metabolic Profile (CMP) 2020-11-14 AM[facility] 2020-11-14 Next Appt Details Provider Name:Andrew Britni Kiran, 2020-12-30 0 1:30:00 PM, [address] [place] [address], [address], Provider Name:Andrew Britni Kiran, 2021-02-03 0 3:15:00 PM, [address] [place] [address], [address], Insurance Providers Payer Name Payer Address Payer Phone Insured Name Patient Relati onship to Insured Coverage Start Date Coverage End Date [facility] [address] [facility] [address] SANIYA EVANS MEDICARE Part A and B [address] [facility] [address] SANIYA EVANS
--- OUTSIDE RECORDS SUMMARY | 2021-01-03 16:56 | CCD ---
Author Author [facility] Organization [facility] Address Unknown Phone Unavailable Care Team Providers Care Signs And Displays Salesperson Name Role Phone Andrew Beck Unavailable PROBLEMS Type Condition ICD9-CM Code [id number] Code Onset Dates Condition S tatus SNOMED Code Notes Problem Neurogenic bladder N31.9 Active 796128926 Problem Recurrent UTI N39.0 Active 489662812 Problem Breast cancer screening Z12.39 Active 70814709 6 Problem Obesity E66.9 Active 176968844 Problem IBS (irritable bowel syndrome) K58.9 Active 1 6371876 Problem Osteoarthritis of spine with radiculopathy, cervical regio n M47.22 Active 118814545 Problem Coronary artery disease invo lving [place] coronary artery of [place] heart without angina pectoris I25.10 Active 276866064034 7 Problem Hepatic encephalopathy K72.90 Active 45959649 Problem 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 E11.329 Active 524152032 Problem CHRISTIANSEN (nonalcoholic steatohepatitis) K75.81 Acti ve 480619961 Problem Vitamin D deficiency, unspecified E55.9 Active 10225471 Problem Recurrent candidiasis of vagina B37.3 Active 006560781 Problem Allergic rhinitis, unspecified J30.9 Active 6 4452866 Problem Migraine without aura and without status migrain osus, not intractable G43.009 Active 434142952 Problem Primary insomnia F51.01 Active 0361325 Problem Hx of colonic polyp Z86.010 Active 956280372 Problem Chronic depression F32.9 Active 060345462 Problem Overactive bladder N32.81 Active 555346904 Problem Vitamin B12 deficiency E53.8 Active 062084637 Problem JETHRO (obstructive sleep apnea) G47.33 Active 78 316049 Problem Osteoarthritis of spine with radiculopathy, lumbar region M47.26 Active 984285678 Problem Mixed hyperlipidemia E78.2 Active 452421090 Problem Ataxia R27.0 Active 40902857 Problem DJD (degenerative joint disease), lumbar M47.816 Active 410053050 Problem Keratoconjunctivitis sicca M35.01 Active 74895 0305 Problem Intertriginous candidiasis B37.2 Active 56916 8001 Problem Cervical cancer screening Z12.4 Active 445412 001 Problem Iron deficiency anemia, unspecified iron deficiency an emia type D50.9 Active 77157441 Problem S/P gastric bypass Z98.84 Active 377630161 Problem End stage liver disease K72.90 Active 80466555 4 Problem Gastroesophageal reflux disease with esophagitis K 21.0 Active 436656551 Problem Venous insufficiency I87.2 Active 79664343 Problem Opioid use disorder F11.99 Active 9531442 Problem Agitation R45.1 Active 872621487 Problem Chronic diastolic congestive heart failure I50.32 Active 021889314 Problem Other ascites R18.8 Active 582455065 ALLERGIES Allergen (clinical drug ingredient) Drug/Non Drug Allergy do cumented on EMR Reaction Allergy Type Onset Date Status Latex (for allergy use only) Rash Drug Allergy Active ciprofloxacin Cipro(NDC Code:[address]-92) Anaphylaxis Drug Allergy Active metformin lactic acidosis Non Drug Allergy Act judith fluconazole Diflucan(NDC Code:[address]-53) hives Drug Allergy Active ENCOUNTERS from 1961 to 2020-10-25 Encounter Location Date Provider Diagnosis [address] [address] Oct, 020 Andrew Kiran Hepatic encephalopathy K72.90 IMMUNIZATIONS Vaccine Route Administration [...] Education Language: Question Answer Notes Languages spoken: Serbian Lutheran: Question Answer Notes Lutheran 08 Rastafari Sexual Hx: Question Answer Notes Had sex [...] every morning for 90 day(s) Active Pen [place] 5/16" 31G X 8 MM 1 needle [...] day 2 50.01 for 30 day(s) Active Trulicity 1.5 MG/0.5ML as directed Subcutaneous every 7 days for 30 day(s) Active EQL Miconazole 3 200 & 2 MG (9GM) as directed Vaginal Daily for 3 days May, Active Vitamin D3 400 UNIT 1 capsules Orally bid for 30 Days Active Depend Underwear Large Dx: 596.54 as directed _N31.9 F our times a day for 30 days Active Lactulose 10 GM/15ML 30 ml Orally qid Active One Touch Ultra 2 Lancet - 1 subcutaneously Twice a day DX 2 50.01 for 30 day(s) Active Nystatin 200558 UNIT/GM 1 application to affected ar ea Externally Twice a day x 5 days to umbilidcus rash flare for 30 day(s) Active Restasis 0.05 % 1 gtt OU Ophthalmic Twice a day Active BusPIRone HCl 30 MG 1 tablet Orally Twice a day Active Catheter straight disposable straight # 14 Fr catheter 10 per day for 30 day(s) Active Vitamin B-12 500 MCG 1 tablet Orally Once a day for 30 day(s) Active Lasix 20 MG 1 tablet Orally Once a day Active Loratadine 10 MG 1 tablet Orally [...] 106 Medical History T2DM insulin requiring-01/2016 SPECT-low risk-[facility] Medical History neurogenic bladder status po [...] morbid status post gastric bypass 2004 at [facility], Dr. Case Medical History dyspepsia/GERD/ho [...] Medical History cervical DJD s/p C4-6 ACDF 08/10/15-[place] Medical History minimal CAD-20% RCA stenosis , LVEF 60% by 02/02/16 [id number] Medical History Tyrer Cuzick score 8.83 % Surgical History cholecystectomy Surgical History back surgery Surgical History gastric bypass 2003 Surgical History colonoscopy/EGD 2014 Surgical History appendectomy Surgical History C4-6 [id number] 08/10/15 Surgical History L3-S1 PDF, L4/5 [facility]body cage-[facility] 07/24/16 Surgical History L femoral neck fracture s/p fall s/p IM nail placement-[facility]. Sun[facility] 07/26/16 Hospitalization History spine 08/17/17-08/30/17 Hospitalization [...] Orally Once a day for 90 day(s) One Touch Ultra 2 Lancet - 1 subcutaneously Twice a day DX 2 50.01 for 30 day(s) Nystatin 017836 UNIT/GM 1 application to affected ar ea Externally Twice a day x 5 days to umbilidcus rash flare for 30 day(s) One Touch Ultra Test Strips - 1 subcutaneously Twice a day 2 50.01 for 30 day(s) Fluticasone Propionate 50 MCG/ACT 2 sprays in each nos tril Nasally every morning for 90 day(s) Voltaren 1 % 4 gms to cervical/lumbar spi ne Transdermal Four times a day ` for 30 day(s) Restasis 0.05 % 1 gtt OU Ophthalmic Twice a day BusPIRone HCl 30 MG 1 tablet Orally Twice a day Lasix 20 MG 1 tablet Orally Once a day Duloxetine HCl 60 MG 1 capsule Orally Twice a day for 30 days Trulicity 1.5 MG/0.5ML as directed Subcutaneous every 7 days for 30 day(s) Lactulose 10 GM/15ML 30 ml Orally qid Vitamin D3 400 UNIT 1 capsules Orally bid for 30 Days Tums 500 MG 1 tablet Orally bid Catheter straight disposable straight # 14 Fr catheter 10 per day for 30 day(s) Polyethylene Glycol - 17 G (one capful) orally daily prn constip ation Rizatriptan Benzoate 10 mg 1 tablet as needed one time Orally Once a day as needed Treatment Notes Test Name Order Date LIVER PROFILE 2020-10-25 [facility] 2020-10-25 Next Appt Details Provider Name:Andrew Beck, 2021-02-03 0 3:15:00 PM, [address] [place], [address], Insurance Providers Payer Name Payer Address Payer Phone Insured Name Patient Relati onship to Insured Coverage Start Date Coverage End Date MEDICARE Part A and B [address] [facility] [phone] SANIYA EVANS [facility] [address] [facility] [phone] SANIYA EVANS
--- OUTSIDE RECORDS SUMMARY | 2021-01-03 16:56 | CCD ---
Author Author [facility] Organization [facility] Address Unknown Phone Unavailable Care Team Providers Care Sledger Name Role Phone Andrew Beck Unavailable PROBLEMS Type Condition ICD9-CM Code [id number] Code Onset Dates Condition S tatus SNOMED Code Notes Problem Neurogenic bladder N31.9 Active 775642705 Problem Recurrent UTI N39.0 Active 891989065 Problem Breast cancer screening Z12.39 Active 38213620 6 Problem Obesity E66.9 Active 079582284 Problem IBS (irritable bowel syndrome) K58.9 Active 1 8530426 Problem Osteoarthritis of spine with radiculopathy, cervical regio n M47.22 Active 126552356 Problem Coronary artery disease invo [place]ving [place] coronary artery of [place] heart without angina pectoris I25.10 Active 815288787622 7 Problem Hepatic encephalopathy K72.90 Active 07503654 Problem 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 E11.329 Active 415395195 Problem CHRISTIANSEN (nonalcoholic steatohepatitis) K75.81 Acti ve 058710927 Problem Vitamin D deficiency, unspecified E55.9 Active 60456500 Problem Recurrent candidiasis of vagina B37.3 Active 219507475 Problem Allergic rhinitis, unspecified J30.9 Active 6 9893960 Problem Migraine without aura and without status migrain osus, not intractable G43.009 Active 660338562 Problem Primary insomnia F51.01 Active 3131722 Problem Hx of colonic polyp Z86.010 Active 641192483 Problem Chronic depression F32.9 Active 842685042 Problem Overactive bladder N32.81 Active 496977985 Problem Vitamin B12 deficiency E53.8 Active 818592797 Problem JETHRO (obstructive sleep apnea) G47.33 Active 78 168249 Problem Osteoarthritis of spine with radiculopathy, lumbar region M47.26 Active 464384819 Problem Mixed hyperlipidemia E78.2 Active 056784376 Problem Ataxia R27.0 Active 66730290 Problem DJD (degenerative joint disease), lumbar M47.816 Active 173914797 Problem Keratoconjunctivitis sicca M35.01 Active 64869 0658 Problem Intertriginous candidiasis B37.2 Active 39168 8001 Problem Cervical cancer screening Z12.4 Active 832830 001 Problem Iron deficiency anemia, unspecified iron deficiency an emia type D50.9 Active 36709523 Problem S/P gastric bypass Z98.84 Active 119865553 Problem End stage liver disease K72.90 Active 81874014 4 Problem Gastroesophageal reflux disease with esophagitis K 21.0 Active 418869000 Problem Venous insufficiency I87.2 Active 48977264 Problem Opioid use disorder F11.99 Active 9070205 Problem Agitation R45.1 Active 390607599 Problem Chronic diastolic congestive heart failure I50.32 Active 296669755 Problem Other ascites R18.8 Active 662847525 ALLERGIES Allergen (clinical drug ingredient) Drug/Non Drug Allergy do cumented on EMR Reaction Allergy Type Onset Date Status Latex (for allergy use only) Rash Drug Allergy Active ciprofloxacin Cipro(ND Code:[address]-48) Anaphylaxis Drug Allergy Active metformin lactic acidosis Non Drug Allergy Act judith fluconazole Diflucan(ND Code:[address]-45) hives Drug Allergy Active ENCOUNTERS from 1961 to 2020-11-23 Encounter Location Date Provider Diagnosis [address] [address] Nov, 021 Andrew Beck IMMUNIZATIONS Vaccine Route [...] Education Language: Question Answer Notes Languages spoken: Stateless Gnosticism: Question Answer Notes Gnosticism 08 Baptism Sexual Hx: Question Answer Notes Had sex [...] every morning for 90 day(s) Active Pen [place] 5/16" 31G X 8 MM 1 needle [...] a day for 30 Days Active Nystatin 745625 UNIT/GM 1 application to affected ar ea [...] Information RESULTS No Results REASON FOR VISIT Gabapentin/ refused Lactulose MEDICAL (GENERAL) HISTORY Type Description Date Medical History anemia secondary to B12 defi ciency and chronic kidney disease//chronic macrocytosis s anemia- 03/1999 MCV 106 Medical History T2DM insulin requiring-01/2016 S[facility] Medical History neurogenic bladder status po [...] morbid status post gastric bypass 2004 at [facility], Dr. Case Medical History dyspepsia/GERD/ho [...] Medical History cervical DJD s/p C4-6 ACDF 08/10/15-[place] Medical History minimal CAD-20% RCA stenosis , LVEF 60% by 02/02/16 hyjverrdaowom-LDI-[place]. [place] Medical History Tyrer Cuzick score 8.83 % Surgical History cholecystectomy Surgical History back surgery Surgical History gastric bypass 2003 Surgical History colonoscopy/EGD 2014 Surgical History appendectomy Surgical History C4-6 RPLW-Rwa-Sewnzfexye 08/10/15 Surgical History L3-S1 PDF, L4/5 [facility]body cage-[facility] 07/24/16 Surgical History L femoral neck fracture s/p fall s/p IM nail placement-[facility] 07/26/16 Hospitalization History spine 08/17/17-08/30/17 [...] NG, -UA, no med changes made at [facility] 03/09- Goals Section No Information Health Concerns [...] 500 MG 1 tablet Orally bid Nystatin 115458 UNIT/GM 1 application to affected ar ea [...] Appt Details Provider Name:Andrew Beck, 2020-12-13 0 1:30:00 PM, [address] [place] [address], [phone], Provider Name:Andrew Beck, 2021-02-03 0 3:15:00 PM, [address] [place] [address], [phone], Insurance Providers Payer Name Payer Address Payer Phone Insured Name Patient Relati onship to Insured Coverage Start Date Coverage End Date MEDICARE Part A and B [address] [facility] [address] [phone] SANIYA EVANS [facility] [address] [facility] [phone] SANIYA EVANS
--- OUTSIDE RECORDS SUMMARY | 2021-01-03 16:57 | CCD ---
Author Author [facility] Organization [facility] Address Unknown Phone Unavailable Care Team Providers Care Computer Numerical Control Grinder Name Role Phone Andrew Beck Unavailable PROBLEMS Type Condition ICD9-CM Code EEN55-YB Code Onset Dates Condition S tatus SNOMED Code Notes Problem Recurrent candidiasis of vagina B37.3 Active 334134720 Problem Breast cancer screening Z12.39 Active 43965405 6 Problem Neurogenic bladder N31.9 Active 261337328 Problem IBS (irritable bowel syndrome) K58.9 Active 1 9237710 Problem Recurrent UTI N39.0 Active 743736960 Problem Coronary artery disease invo lving [place] coronary artery of [place] heart without angina pectoris I25.10 Active 818641982287 7 Problem Obesity E66.9 Active 436018688 Problem CHRISTIANSEN (nonalcoholic steatohepatitis) K75.81 Acti ve 917532945 Problem Vitamin D deficiency, unspecified E55.9 Active 15415470 Problem Osteoarthritis of spine with radiculopathy, lumbar region M47.26 Active 504784116 Problem Mixed hyperlipidemia E78.2 Active 327566102 Problem Allergic rhinitis, unspecified J30.9 Active 6 6880545 Problem 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 E11.329 Active 949873712 Problem Primary insomnia F51.01 Active 4756516 Problem Venous insufficiency I87.2 Active 52067642 Problem Chronic depression F32.9 Active 429729046 Problem Migraine without aura and without status migrain osus, not intractable G43.009 Active 551572887 Problem JETHRO (obstructive sleep apnea) G47.33 Active 78 727189 Problem Hx of colonic polyp Z86.010 Active 130603322 Problem Ataxia R27.0 Active 94063392 Problem DJD (degenerative joint disease), lumbar M47.816 Active 460181750 Problem Overactive bladder N32.81 Active 705994804 Problem Vitamin B12 deficiency E53.8 Active 244934449 Problem Hepatic encephalopathy K72.90 Active 03581470 Problem Keratoconjunctivitis sicca M35.01 Active 95881 6008 Problem Intertriginous candidiasis B37.2 Active 86659 8001 Problem Other ascites R18.8 Active 599024116 Problem Gastroesophageal reflux disease with esophagitis K 21.0 Active 286360866 Problem Iron deficiency anemia, unspecified iron deficiency an emia type D50.9 Active 71425923 Problem Osteoarthritis of spine with radiculopathy, cervical regio n M47.22 Active 477910437 Problem S/P gastric bypass Z98.84 Active 442657876 Problem Cervical cancer screening Z12.4 Active 920180 001 Problem Opioid use disorder F11.99 Active 2213466 Problem Agitation R45.1 Active 641444356 Problem Chronic diastolic congestive heart failure I50.32 Active 975156156 ALLERGIES Allergen (clinical drug ingredient) Drug/Non Drug Allergy do cumented on EMR Reaction Allergy Type Onset Date Status Latex (for allergy use only) Rash Drug Allergy Active ciprofloxacin Cipro(ND Code:[address]-92) Anaphylaxis Drug Allergy Active metformin lactic acidosis Non Drug Allergy Act judith fluconazole Diflucan([facility] Code:[address]-72) hives Drug Allergy Active ENCOUNTERS from 1961 to 2020-10-17 Encounter Location Date Provider Diagnosis [address] [address] Oct, 020 Andrew Beck DJD (degenerative joint disease), lumbar M47.816 IMMUNIZATIONS Vaccine Route Administration Date Status Influenza [...] Education Language: Question Answer Notes Languages spoken: Kiswahili Mandaeism: Question Answer Notes Mandaeism 08 Anglican Sexual Hx: Question Answer Notes Had sex [...] Notes Start Da te End Date Status BusPIRone HCl 30 MG 1 tablet Orally Twice a day Active Rizatriptan Benzoate 10 mg 1 tablet as needed one time Orally Once a day as needed Active Vitamin B-12 500 MCG 1 tablet Orally Once a day for 30 day(s) Active Lasix 20 MG 1 tablet Orally Once a day Active Lidocaine HCl 4 % 1 application, to neck, back or legs prn Externally every 4 hours as needed Jan, Active Butrans 5 MCG/HR 1 patch to skin Transdermal every 7 days for 30 Days Apr, Active Trulicity 1.5 MG/0.5ML as directed Subcutaneous every 7 days for 30 day(s) Active Lactulose 10 GM/15ML 30 ml Orally qid for 30 Days Active Voltaren 1 % 4 gms to cervical/lumbar spi ne Transdermal Four times a day ` for 30 day(s) Active Rifaximin 200 MG 2 tablet Orally bid Active Polyethylene Glycol - 17 G (one capful) orally daily prn constipation Active Duloxetine HCl 60 MG 1 capsule Orally Twice a day for 30 days Active Humidifier - as directed DX: J30.9 Daily for 99 months Jan, Active Spironolactone 50 MG 1 tablet Orally bid Jan, Active Catheter straight disposable straight # 14 Fr catheter 10 per day for 30 day(s) Active Pen [place] 5/16" 31G X 8 MM 1 needle subcutaneous Sohan melendez pen ICD E11.9 for 90 day(s) Apr, Active Cyanocobalamin 500 MCG 1 tablet Orally Once a day Nov, Active Rolling Walker 1 with 4 wheels and a seat DX: M47.22/ M47.816 Daily for 99 months Nov, Active Fluticasone Propionate 50 MCG/ACT 2 sprays in each nos tril Nasally every morning for 90 day(s) Active Omeprazole 40mg 40 mg 1 tablet by mouth AC bid for 30 day(s) Active Gabapentin 300 MG 2 tablets Orally three times daily for 30 Days Active Restasis 0.05 % 1 gtt OU Ophthalmic Twice a day Active May have ___ bed side rail _ once daily for 99 months 2015 Active Diflucan 100 MG 1 tablet Orally once daily for 3 days 2019 Active Nystatin 382392 UNIT/GM 1 application to affected ar ea Externally Twice a day x 5 days to umbilidcus rash flare for 30 day(s) Active Loratadine 10 MG 1 tablet Orally Once a day for 90 day(s) Active Vitamin D3 400 UNIT 1 capsules Orally bid Active Depend Underwear Large Dx: 596.54 as directed _N31.9 F our times a day for 30 days Active EQL Miconazole 3 200 & 2 MG (9GM) as directed Vaginal Daily for 3 days May, Active Spironolactone 100 MG 1 tablet Orally twice daily Active Tums 500 MG 1 tablet Orally bid for 30 Days Active One Touch Ultra 2 Lancet - 1 subcutaneously Twice a day DX 2 50.01 for 30 day(s) Active One Touch Ultra Test Strips - 1 subcutaneously Twice a day 2 50.01 for 30 day(s) Active Celecoxib 200 MG 1 capsule with food Orally Once a day for 30 day(s) Active Methocarbamol 500 MG 1 tablet Orally three times daily Active Atorvastatin Calcium 20 MG 1 tablet Orally Once a day for 30 day(s) Active PROCEDURES No Information RESULTS No Results REASON FOR VISIT Refill Butngocs patch MEDICAL (GENERAL) HISTORY Type Description Date Medical [...] morbid status post gastric bypass 2004 at [facility], Dr. Case Medical History dyspepsia/GERD/ho jejunal ul cer-WNL REYGJ anatomy,esophagus, jejunum-10/30/19 EGD-R Medical History vitamin D deficiency Medical History chronic intertriginous candidiasis Medical History CKD stage III Medical History mild left carpal tunnel synd alvarez and left ulnar neuropathy at elbow by November 2011 NCS-[facility] Medical History allergic rhinitis/sinusitis, chronic-06/12 013 - zone 1 panel Medical History vitamin D deficiency Medical History tubular adenoma by colonosco py 02/2015-Berg10/30/19-dim tubular a-R Medical History cervical DJD s/p C4-6 ACDF 08/10/15-[place] Medical History minimal CAD-20% RCA stenosis , LVEF 60% by 02/02/16 uaawfkesctlnr-YYF-Ye. [place] Medical History Tyrer Cuzick score 8.83 % Surgical History cholecystectomy Surgical History back surgery Surgical History gastric bypass 2003 Surgical History colonoscopy/EGD 2014 Surgical History appendectomy Surgical History C4-6 KUWG-Ech-Wgnnzewalm 08/10/15 Surgical History L3-S1 PDF, L4/5 interbody [...] Treatment Notes Treatm ent Clinical Notes Oct, DJD (degenerative joint disease), lumbar (ICD-10 - M47.816) PLAN OF TREATMENT Medication Medication Name Sig Start Date Stop Date Butrans 5 MCG/HR 1 patch to skin Transdermal every 7 days for 30 Days Apr, Next Appt Details Provider Name:Andrew Beck, 2020-10-20 0 1:30:00 PM, [address] [place], [address], Insurance Providers Payer Name Payer Address Payer Phone Insured Name Patient Relati onship to Insured Coverage Start Date Coverage End Date [facility] [address] [facility] [phone] SANIYA EVANS MEDICARE Part A and B [address] [facility] [phone] SANIYA EVANS
--- OUTSIDE RECORDS SUMMARY | 2021-01-03 16:57 | CCD | Continuity of Care Document ---
Author Anastasia Roblero M.D. Organization Unknown Address [address] [place] [address] Phone [phone] Care Team Providers Care Floor Tech Name Role Phone Andrew Beck M.D. AUTM [phone] Problems Active Problems Provider Date Daily headache Gissel Fabian M.D. Onset: 06/21/2014 Chronic low back pain Gissel Fabian M.D. Onset: 06/21/2014 Chronic neck pain Gissel Fabian M.D. Onset: 06/21/2014 Myofascial pain Gissel Fabian M.D. Onset: 06/21/2014 Social History Type Date Description Comments Sex Unknown Tobacco Use Start: Unknown End: Unknown Patient is a former smoker Allergies, Adverse Reactions, Alerts Active Allergies Reaction Severity Comments Date Cipro 06/21/2014 Medications Active Medications SIG Qnty Indications Ordering Provide r Date Ativan 1mg Tablets 1 tab by mouth 1 hour and then 10 mins before test if necessary 2tabs Gissel Fabian M.D. 05/19/2019 Pamelor 10mg Capsules 1 by mouth twice a day 60caps Gissel Fabian M.D. 08/19/2018 Tramadol HCL 50mg Tablets 1 by mouth every 8 hours as needed pain 90tabs Gissel Fabian M.D. 015 Neurontin 800mg Tablets 1 by mouth four times a day 120tabs Gissel Fabian M.D. 10/05/2014 Voltaren 1% Gel apply to neck and low back 2 timesa day 40units Gissel Fabian M.D. 09/23/2014 Percocet 7.5-325mg Tablets 1 by mouth twice a day as needed 60tabs Gissel Fabian M.D. 06/04/20 14 Zonisamide 100mg Capsules take one capsule by mouth twice a day 60caps Gissel Fabian M.D. 4 Maxalt-PROFESSOR OF JOURNALISM 10mg Tablets Dispers Dissolve 1 Tablet By Mouth AT Onset Of Headache 12tabs Gissel Fabian M.D. 10/02/2013 Percocet 5-325mg Tablets 1 po tid prn 90tabs Gissel Fabian M.D. 06/03/2013 Immunizations Description No Information Available Vital Signs Date Vital Result Comment 06/21/2014 12:25pm BP Systolic 120 mmHg BP Diastolic 80 mmHg Heart Rate 72 /min Height 64 inches 5'4" Weight 240.00 lb BMI (Body Mass Index) 41.2 kg/m2 [place] Body Weight 120 lb Results Description No Information Available Procedures Description No Information Available Medical Devices Description No Information Available Encounters Description No Information Available Assessments Date Code Description Provider 07/05/2020 M47.892 Other spondylosis, cervical talha on Gissel Fabian M.D. 07/05/2020 R42 Dizziness and giddiness Gissel Hernandez M.D. 07/05/2020 M54.5 Low back pain Mary Jane Pemberton 07/05/2020 M47.896 Other spondylosis, lumbar region Gissel Fabian M.D. 07/05/2020 G43.819 Other migraine, intractable, wit hout status migrainosus Gissel Fabian M.D. 07/05/2020 M54.2 Cervicalgia Mary Jane Pemberton Plan of Treatment No Information Available Functional Status Description No Information Available Mental Status Description No Information Available Referrals Refer to Reason for Referral Status Appt Date Gissel Fabian M.D. Created [facility] [place] [address] [phone]
--- OUTSIDE RECORDS SUMMARY | 2021-01-03 16:57 | CCD | Continuity of Care Document ---
Author Anastasia Roblero M.D. Organization Unknown Address [address] [place] [address] Phone [phone] Care Team Providers Care Bit Shaver Name Role Phone Andrew Beck M.D. AUTM [phone] Problems Active Problems Provider Date Daily headache [...] a day 60caps Gissel Fabian M.D. 4 Maxalt-TITLE CURATOR 10mg Tablets Dispers Dissolve 1 Tablet By [...] lb BMI (Body Mass Index) 41.2 kg/m2 [place] Body Weight 120 lb Results Description No Information Available Procedures Description No Information Available Medical Devices Description No Information Available Encounters Type Date Location Provider Dx Diagnosis Office Visit 10/10/2020 11:00a Main office - [place] Gissel Fabian M.D. M47.892 Other spondylosis, cervical region M54.5 Low back pain M47.896 Other spondylosis, lumbar re gion M54.2 Cervicalgia I73.9 Peripheral vascular disease, unspecified Assessments Date Code Description Provider 10/10/2020 M47.892 Other spondylosis, cervical talha on Gissel CarenHanna ledezmaDSaira 10/10/2020 M54.5 Low back pain Gissel CarenToño.D Saira 10/10/2020 M47.896 Other spondylosis, lumbar region Gissel CarenHanna ledezmaDSaira 10/10/2020 M54.2 Cervicalgia Gissel Caren, M.D Saira 10/10/2020 I73.9 Peripheral vascular disease, uns pecified Gissel Caren, Toño.DSaira 07/05/2020 M47.892 Other spondylosis, cervical talha on Gissel CarenHanna ledezmaDSaira 07/05/2020 R42 Dizziness and giddiness Gissel Hrenandez M.D. 07/05/2020 M54.5 Low back pain Gissel CarenHanna ledezmaD Saira 07/05/2020 M47.896 Other spondylosis, lumbar region Gissel Caren, MSairaDSaira 07/05/2020 G43.819 Other migraine, intractable, wit hout status migrainosus Gissel Fabian M.D. 07/05/2020 M54.2 Cervicalgia Mary Jane Pemberton Plan of Treatment No Information Available Functional Status Description No Information Available Mental Status Description No Information Available Referrals Refer to Dr Reason for Referral Status Appt Date Gissel Fabian M.D. Created [facility] [place] [address] [phone]
--- OUTSIDE RECORDS SUMMARY | 2021-01-03 16:57 | CCD ---
Author Author [facility] Organization [facility] Address Unknown Phone Unavailable Care Team Providers Care Brand Director Name Role Phone Andrew Beck Unavailable PROBLEMS Type Condition ICD9-CM Code GBU09-IR Code Onset Dates Condition S tatus SNOMED Code Notes Problem Recurrent candidiasis of vagina B37.3 Active 581271576 Problem Breast cancer screening Z12.39 Active 79620848 6 Problem Neurogenic bladder N31.9 Active 355537679 Problem IBS (irritable bowel syndrome) K58.9 Active 1 7214748 Problem Recurrent UTI N39.0 Active 327122909 Problem Coronary artery disease invo lving [place] coronary artery of [place] heart without angina pectoris I25.10 Active [id number] 7 Problem Obesity E66.9 Active 861664697 Problem CHRISTIANSEN (nonalcoholic steatohepatitis) K75.81 Acti ve 176136104 Problem Vitamin D deficiency, unspecified E55.9 Active 46224938 Problem Osteoarthritis of spine with radiculopathy, lumbar region M47.26 Active 007993181 Problem Mixed hyperlipidemia E78.2 Active 028417112 Problem Allergic rhinitis, unspecified J30.9 Active 6 5109193 Problem 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 E11.329 Active 122591082 Problem Primary insomnia F51.01 Active 1641435 Problem Venous insufficiency I87.2 Active 62777528 Problem Chronic depression F32.9 Active 815827087 Problem Migraine without aura and without status migrain osus, not intractable G43.009 Active 277372147 Problem JETHRO (obstructive sleep apnea) G47.33 Active 78 038434 Problem Hx of colonic polyp Z86.010 Active 097955329 Problem Ataxia R27.0 Active 48334196 Problem DJD (degenerative joint disease), lumbar M47.816 Active 086999013 Problem Overactive bladder N32.81 Active 068890210 Problem Vitamin B12 deficiency E53.8 Active 364286114 Problem Hepatic encephalopathy K72.90 Active 70596461 Problem Keratoconjunctivitis sicca M35.01 Active 29473 6008 Problem Intertriginous candidiasis B37.2 Active 34425 8001 Problem Other ascites R18.8 Active 429134835 Problem Gastroesophageal reflux disease with esophagitis K 21.0 Active 403834690 Problem Iron deficiency anemia, unspecified iron deficiency an emia type D50.9 Active 80402653 Problem Osteoarthritis of spine with radiculopathy, cervical regio n M47.22 Active 091765245 Problem S/P gastric bypass Z98.84 Active 993470268 Problem Cervical cancer screening Z12.4 Active 596357 001 Problem Opioid use disorder F11.99 Active 7580816 Problem Agitation R45.1 Active 394864110 Problem Chronic diastolic congestive heart failure I50.32 Active 530830315 ALLERGIES Allergen (clinical drug ingredient) Drug/Non Drug Allergy do cumented on EMR Reaction Allergy Type Onset Date Status Latex (for allergy use only) Rash Drug Allergy Active ciprofloxacin Cipro(ND Code:[address]-33) Anaphylaxis Drug Allergy Active metformin lactic acidosis Non Drug Allergy Act judith fluconazole Diflucan([facility] Code:[address]-57) hives Drug Allergy Active ENCOUNTERS from 1961 to 2020-10-24 Encounter Location Date Provider Diagnosis [facility] Resident [address] [place] [address] 14 Oct, 2020 Andrew Beck Vitamin D deficiency, unspec ified E55.9 IMMUNIZATIONS Vaccine Route Administration Date Status [...] Education Language: Question Answer Notes Languages spoken: [place] Shinto: Question Answer Notes Shinto 08 Advent Sexual Hx: Question Answer Notes [...] 10 per day for 30 day(s) Active Depend Underwear Large Dx: 596.54 as directed _N31.9 F our times a day for 30 days Active Vitamin D3 400 UNIT 1 capsules Orally bid for 30 Days Active Nystatin 257744 UNIT/GM 1 application to affected ar ea Externally Twice a day x 5 days to umbilidcus rash flare for 30 day(s) Active Voltaren 1 % 4 gms to cervical/lumbar spi ne Transdermal Four times a day ` for 30 day(s) Active Tums 500 MG 1 tablet Orally bid Acti ve May have ___ bed side rail _ once daily for 99 months J 2015 Active Atorvastatin Calcium 20 MG 1 tablet Orally Once a day for 30 day(s) Active Restasis 0.05 % 1 gtt OU Ophthalmic Twice a day Active Spironolactone 50 MG 1 tablet Orally bid Jan, Active Rizatriptan Benzoate 10 mg 1 tablet as needed one time Orally Once a day as needed Active Lidocaine HCl 4 % 1 application, to neck, back or legs prn Externally every 4 hours as needed Jan, Active Pen [place] 03/26" 31G X 8 MM 1 needle subcutaneous Sohan melendez pen ICD E11.9 for 90 day(s) Apr, Active One Touch Ultra Test Strips - 1 subcutaneously Twice a day 2 50.01 for 30 day(s) Active Trulicity 1.5 MG/0.5ML as directed Subcutaneous every 7 days for 30 day(s) Active EQL Miconazole 3 200 & 2 MG (9GM) as directed Vaginal Daily for 3 days May, Active Butrans 5 MCG/HR 1 patch to skin Transdermal every 7 days for 30 Days Active Fluticasone Propionate 50 MCG/ACT 2 sprays in each nos tril Nasally every morning for 90 day(s) Active Lactulose 10 GM/15ML 30 ml Orally qid Active One Touch Ultra 2 Lancet - 1 subcutaneously Twice a day DX 2 50.01 for 30 day(s) Active Polyethylene Glycol - 17 G (one capful) orally daily prn constipation Active Rolling Walker 1 with 4 wheels and a seat DX: M47.22/ M47.816 Daily for 99 months Nov, Active Humidifier - as directed DX: J30.9 Daily for 99 months Jan, Active BusPIRone HCl 30 MG 1 tablet Orally Twice a day Active Duloxetine HCl 60 MG 1 capsule Orally Twice a day for 30 days Active Vitamin B-12 500 MCG 1 tablet [...] Information RESULTS No Results REASON FOR VISIT rx MEDICAL (GENERAL) HISTORY Type Description Date Medical History anemia secondary to B12 defi ciency and chronic kidney disease//chronic macrocytosis s anemia- 03/1999 MCV 106 Medical History T2DM insulin requiring-01/2016 SPECT-low risk-[facility] Medical History neurogenic bladder status po st laminectomy -patient performs clean intermittent self catheterization/recurrent UTI Medical History DJD lumbosacral spine with s econdary bilateral lower extremity radiculopathy-November 2011 NCS-moderate chronic left L5/S1 radiculopathy, mild chronic right L5/S1 radiculopathy-[facility] MRI intact L4/5 fusion s CCS nor NFS Medical History NAFLD Medical History IBS, mixed type Medical History obesity, morbid status post gastric bypass 2004 at [facility], Dr. Case Medical History dyspepsia/GERD/ho [...] RCA stenosis , LVEF 60% by 02/02/16 [id number]. [place] Medical History Tyrer Cuzick score 8.83 % Surgical History cholecystectomy Surgical History back surgery Surgical History gastric bypass 2003 Surgical History colonoscopy/EGD 2014 Surgical History appendectomy Surgical History C4-6 [id number] 08/10/15 Surgical History L3-S1 PDF, L4/5 interbody [...] NG, -UA, no med changes made at mt 03/09- Goals Section No Information Health Concerns No Information MEDICAL EQUIPMENT No Information MENTAL STATUS No Information FUNCTIONAL STATUS No Information ASSESSMENTS Encounter Date Diagnosis Assessment Notes Treatment Notes Treatm ent Clinical Notes Oct, Vitamin D deficiency, unspecified (ICD-10 - [...] day DX 2 50.01 for 30 day(s) Rizatriptan Benzoate 10 mg 1 tablet as needed one time Orally Once a day as needed One Touch Ultra Test Strips - 1 subcutaneously Twice a day 2 50.01 for 30 day(s) Tums 500 MG 1 tablet Orally bid Fluticasone Propionate 50 MCG/ACT 2 sprays in each nos tril Nasally every morning for 90 day(s) Polyethylene Glycol - 17 G (one capful) orally daily prn constip ation BusPIRone HCl 30 MG 1 tablet Orally Twice a day Lasix 20 MG 1 tablet Orally Once a day Nystatin 501217 UNIT/GM 1 application to affected ar ea Externally Twice a day x 5 days to umbilidcus rash flare for 30 day(s) Trulicity 1.5 MG/0.5ML as directed Subcutaneous every 7 days for 30 day(s) Lactulose 10 GM/15ML 30 ml Orally qid Butrans 5 MCG/HR 1 patch to skin Transdermal every 7 days for 30 Days Voltaren 1 % 4 gms to cervical/lumbar spi ne Transdermal Four times a day ` for 30 day(s) Restasis 0.05 % 1 gtt OU Ophthalmic Twice a day Vitamin D3 400 UNIT 1 capsules Orally bid for 30 Days Duloxetine HCl 60 MG 1 capsule Orally Twice a day for 30 days Atorvastatin Calcium 20 MG 1 tablet Orally Once a day for 30 day (s) Catheter straight disposable straight # 14 Fr catheter 10 per day for 30 day(s) Next Appt Details Provider Name:Andrew Beck, 2021-02-03 0 3:15:00 PM, [facility] [place], [address], Insurance Providers Payer Name Payer Address Payer Phone Insured Name Patient Relati onship to Insured Coverage Start Date Coverage End Date MEDICARE Part A and B [address] [facility] [phone] SANIYA EVANS [facility] [address] [facility] [address] SANIYA EVANS
--- OUTSIDE RECORDS SUMMARY | 2021-01-03 16:58 | CCD ---
Author Author [facility] Organization [facility] Address Unknown Phone Unavailable Care Team Providers Care Biological Science Technician Fish Name Role Phone Melissa Fabian Unavailable Unavailable CarenMelissa ledezma Unavailable Unavailable CarenMelissa ledezma Unavailable Unavailable CarenMelissa ledezma Unavailable Unavailable CarenMelissa ledezma Unavailable Unavailable CarenMelissa ledezma Unavailable Unavailable CarenMelissa ledezma Unavailable Unavailable CarenMelissa ledezma Unavailable Unavailable CarenMelissa Unavailable Unavailable CarenMelissa Unavailable Unavailable CarenMelissa Unavailable Unavailable CarenMelissa Unavailable Unavailable CarenMelissa ledezma Unavailable Unavailable CarenMelissa Unavailable Unavailable CarenMelissa Unavailable Unavailable CarenMelissa Unavailable Unavailable CarenMelissa Unavailable Unavailable CarenMelissa Unavailable Unavailable CarenMelissa Unavailable Unavailable CarenMelissa ledezma Unavailable Unavailable CarenMelissa ledezma Unavailable Unavailable CarenMelissa ledezma Unavailable Unavailable CarenMelissa Unavailable Unavailable CarenMelissa Unavailable Unavailable CarenMelissa Unavailable Unavailable CarenMelissa Unavailable Unavailable Caren, Gissel MD Unavailable Unavailable Caren, Gissel MD Unavailable Unavailable Caren, Gissel MD Unavailable Unavailable Caren, Gissel MD Unavailable Unavailable Caren, Gissel MD Unavailable Unavailable Caren, Gissel MD Unavailable Unavailable Caren, Gissel MD Unavailable Unavailable Caren, Gissel MD Unavailable Unavailable Caren, Gissel MD Unavailable Unavailable Caren, Gissel MD Unavailable Unavailable Caren, Gissel MD Unavailable Unavailable Caren, Gissel MD Unavailable Unavailable Caren, Gissel MD Unavailable Unavailable Caren, Gissel MD Unavailable Unavailable Caren, Gissel MD Unavailable Unavailable Caren, Gissel MD Unavailable Unavailable Caren, Gissel MD Unavailable Unavailable Caren, Gissel MD Unavailable Unavailable Caren, Gissel MD Unavailable Unavailable Caren, Gissel MD Unavailable Unavailable Caren, Gissel MD Unavailable Unavailable Caren, Gissel MD Unavailable Unavailable Caren, Gissel MD Unavailable Unavailable Caren, Gissel MD Unavailable Unavailable Caren, Gissel MD Unavailable Unavailable Caren, Gissel MD Unavailable Unavailable Caren, Gissel MD Unavailable Unavailable Caren, Gissel MD Unavailable Unavailable Caren, Gissel MD Unavailable Unavailable Caren, Gissel MD Unavailable Unavailable Caren, Gissel MD Unavailable Unavailable Caren, Gissel MD Unavailable Unavailable Caren, Gissel MD Unavailable Unavailable Caren, Gissel MD Unavailable Unavailable Caren, Gissel MD Unavailable Unavailable Caren, Gissel MD Unavailable Unavailable Caren, Gissel MD Unavailable Unavailable Jairo Vale MD Unavailable Unavailable Jairo Vale MD Unavailable Unavailable Jairo Vale MD Unavailable Unavailable Jairo Vale MD Unavailable Unavailable Jairo Vale MD Unavailable Unavailable Jairo Vale MD Unavailable Unavailable Jairo Vale MD Unavailable Unavailable Jairo Vale MD Unavailable Unavailable Jairo Vale MD Unavailable Unavailable Jairo Vale MD Unavailable Unavailable Jairo Vale MD Unavailable Unavailable Jairo Vale MD Unavailable Unavailable Jairo Vale MD Unavailable Unavailable Jairo Vale MD Unavailable Unavailable Jairo Vale MD Unavailable Unavailable Jairo Vale MD Unavailable Unavailable Jairo Vale MD Unavailable Unavailable Jairo Vale MD Unavailable Unavailable Jairo Vale MD Unavailable Unavailable Jairo Vale MD Unavailable Unavailable Jairo Vale MD Unavailable Unavailable Jairo Vale MD Unavailable Unavailable Jairo Vale MD Unavailable Unavailable Jairo Vale MD Unavailable Unavailable Jairo Vale MD Unavailable Unavailable Jairo Vale MD Unavailable Unavailable Jairo Vale MD Unavailable Unavailable Jairo Vale MD Unavailable Unavailable Jairo Vale MD Unavailable Unavailable Jairo Vale MD Unavailable Unavailable Jairo Vale MD Unavailable Unavailable Jairo Vale MD Unavailable Unavailable Jairo Vale MD Unavailable Unavailable SunJairo MD Unavailable Unavailable SunJairo MD Unavailable Unavailable SunJairo MD Unavailable Unavailable SunJairo MD Unavailable Unavailable SunJairo MD Unavailable Unavailable SunJairo MD Unavailable Unavailable SunJairo MD Unavailable Unavailable SunJairo MD Unavailable Unavailable SunJairo MD Unavailable Unavailable SunJairo MD Unavailable Unavailable SunJairo MD Unavailable Unavailable SunJairo MD Unavailable Unavailable SunJairo MD Unavailable Unavailable SunJairo MD Unavailable Unavailable SunJairo MD Unavailable Unavailable SunJairo MD Unavailable Unavailable SunJairo MD Unavailable Unavailable SunJairo MD Unavailable Unavailable SunJairo MD Unavailable Unavailable SunJairo MD Unavailable Unavailable SunJairo MD Unavailable Unavailable SunJairo MD Unavailable Unavailable SunJairo MD Unavailable Unavailable SunJairo MD Unavailable Unavailable Jairo Vale MD Unavailable Unavailable Jairo Vale MD Unavailable Unavailable Jairo Vale MD Unavailable Unavailable Jairo Vale MD Unavailable Unavailable Jairo Vale MD Unavailable Unavailable Jairo Vale MD Unavailable Unavailable Jairo Vale MD Unavailable Unavailable Jairo aVle MD Unavailable Unavailable Jairo aVle MD Unavailable Unavailable Jairo Vale MD Unavailable Unavailable SunJairo MD Unavailable Unavailable Jairo Vale MD Unavailable Unavailable Jairo Vale MD Unavailable Unavailable Jairo Vale MD Unavailable Unavailable Caren, Gissel MD Unavailable Unavailable Caren, Gissel MD Unavailable Unavailable Caren, Gissel MD Unavailable Unavailable Caren, Gissel MD Unavailable Unavailable Caren, Gissel MD Unavailable Unavailable Caren, Gissel MD Unavailable Unavailable Caren, Gissel MD Unavailable Unavailable Caren, Gissel MD Unavailable Unavailable Caren, Gissel MD Unavailable Unavailable Caren, Gissel MD Unavailable Unavailable Caren, Gissel MD Unavailable Unavailable Caren, Gissel MD Unavailable Unavailable Caren, Gissel MD Unavailable Unavailable Caren, Gissel MD Unavailable Unavailable Caren, Gissel MD Unavailable Unavailable Caren, Gissel MD Unavailable Unavailable Caren, Gissel MD Unavailable Unavailable Caren, Gissel MD Unavailable Unavailable Caren, Gissel MD Unavailable Unavailable Caren, Gissel MD Unavailable Unavailable Caren, Gissel MD Unavailable Unavailable Caren, Gissel MD Unavailable Unavailable Caren, Gissel MD Unavailable Unavailable Caren, Gissel MD Unavailable Unavailable Caren, Gissel MD Unavailable Unavailable Caren, Gissel MD Unavailable Unavailable Caren, Gissel MD Unavailable Unavailable Caren, Gissel MD Unavailable Unavailable Caren, Gissel MD Unavailable Unavailable Caren, Gissel MD Unavailable Unavailable Caren, Gissel MD Unavailable Unavailable Caren, Gissel MD Unavailable Unavailable Caren, Gissel MD Unavailable Unavailable Caren, Gissel MD Unavailable Unavailable Caren, Gissel MD Unavailable Unavailable Caren, Gissel MD Unavailable Unavailable Caren, Gissel MD Unavailable Unavailable Caren, Gissel MD Unavailable Unavailable Caren, Gissel MD Unavailable Unavailable Caren, Gissel MD Unavailable Unavailable Caren, Gissel MD Unavailable Unavailable Caren, Gissel MD Unavailable Unavailable Caren, Gissel MD Unavailable Unavailable Caren, Gissel MD Unavailable Unavailable Caren, Gissel MD Unavailable Unavailable Caren, Gissel MD Unavailable Unavailable Caren, Gissel MD Unavailable Unavailable Caren, Gissel MD Unavailable Unavailable Caren, Gissel MD Unavailable Unavailable Caren, Gissel MD Unavailable Unavailable Caren, Gissel MD Unavailable Unavailable Caren, Gissel MD Unavailable Unavailable Caren, Gissel MD Unavailable Unavailable Caren, Gissel MD Unavailable Unavailable Caren, Gissel MD Unavailable Unavailable Caren, Gissel MD Unavailable Unavailable Caren, Gissel MD Unavailable Unavailable Caren, Gissel MD Unavailable Unavailable Caren, Gissel MD Unavailable Unavailable Caren, Gissel MD Unavailable Unavailable Caren, Gissel MD Unavailable Unavailable Caren, Gissel MD Unavailable Unavailable Caren, Gissel MD Unavailable Unavailable Brandee CHRISTIANSEN Unavailable Unavailable Britni Beck MD Unavailable Unavailable Britni Beck MD Unavailable Unavailable Britni Beck MD Unavailable Unavailable Britni Beck MD Unavailable Unavailable Britni Beck MD Unavailable Unavailable Britni Beck MD Unavailable Unavailable Britni Beck MD Unavailable Unavailable Britni Beck MD Unavailable Unavailable Britni Beck MD Unavailable Unavailable Britni Beck MD Unavailable Unavailable Britni Beck MD Unavailable Unavailable Britni Beck MD Unavailable Unavailable Britni Beck MD Unavailable Unavailable Britni Beck MD Unavailable Unavailable Britni Beck MD Unavailable Unavailable Britni Beck MD Unavailable Unavailable Kiran, Britni Morales MD Unavailable Unavailable Kiran, Britni Morales MD Unavailable Unavailable Kiran, E Andrew CAMACHO Unavailable Unavailable Kiran, E Andrew CAMACHO Unavailable Unavailable Kiran, E Andrew CAMACHO Unavailable Unavailable Kiran, E Andrew CAMACHO Unavailable Unavailable Kiran, Britni Morales MD Unavailable Unavailable Kiran, Britni Morales MD Unavailable Unavailable Kiran, Britni Morales MD Unavailable Unavailable Kiran, Britni Morales MD Unavailable Unavailable Kiran, E Andrew CAMACHO Unavailable Unavailable Kiran, E Andrew CAMACHO Unavailable Unavailable Kiran, Britni Morales MD Unavailable Unavailable Kiran, E Andrew CAMACHO Unavailable Unavailable Kiran, Britni Morales MD Unavailable Unavailable Kiran, Britni Morales MD Unavailable Unavailable Kiran, Britni Moarles MD Unavailable Unavailable Kiran, Britni Morales MD Unavailable Unavailable Kiran, Britni Morales MD Unavailable Unavailable Kiran, Britni Morales MD Unavailable Unavailable Kiran, Britni Morales MD Unavailable Unavailable Kiran, Britni Morales MD Unavailable Unavailable Kiran, Britni Morales MD Unavailable Unavailable Kiran, Britni Morales MD Unavailable Unavailable Kiran, Britni Morales MD Unavailable Unavailable Kiran, Britni Morales MD Unavailable Unavailable Kiran, Britni Morales MD Unavailable Unavailable Kiran, Britni Morales MD Unavailable Unavailable Kiran, E Andrew CAMACHO Unavailable Unavailable Kiran, Britni Morales MD Unavailable Unavailable Kiran, Britni Morales MD Unavailable Unavailable Kiran, Britni Morales MD Unavailable Unavailable Kiran, Britni Morales MD Unavailable Unavailable Kiran, Britni Morales MD Unavailable Unavailable Kiran, Britni Morales MD Unavailable Unavailable Kiran, Britni Morales MD Unavailable Unavailable Kiran, E Andrew CAMACHO Unavailable Unavailable Kiran, Britni Morales MD Unavailable Unavailable Kiran, Britni Morales MD Unavailable Unavailable Kiran, Britni Morales MD Unavailable Unavailable Kiran, E Andrew CAMACHO Unavailable Unavailable Marzouk, F Jaycob Unavailable Unavailable Marzouk, F Jaycob Unavailable Unavailable Marzouk, F Jaycob Unavailable Unavailable Marzouk, F Jaycob Unavailable Unavailable Marzouk, F Jaycob Unavailable Unavailable Marzouk, F Jaycob Unavailable Unavailable Marzouk, F Jaycob Unavailable Unavailable Marzouk, F Jaycob Unavailable Unavailable Marzouk, F Jaycob Unavailable Unavailable Marzouk, F Jaycob Unavailable Unavailable Marzouk, F Jaycob Unavailable Unavailable Marzouk, F Jaycob Unavailable Unavailable Marzouk, F Jaycob Unavailable Unavailable Marzouk, F Jaycob Unavailable Unavailable Marzouk, F Jaycob Unavailable Unavailable Marzouk, F Jaycob Unavailable Unavailable Marzouk, F Jaycob Unavailable Unavailable Marzouk, F Jaycob Unavailable Unavailable Marzouk, F Jaycob Unavailable Unavailable Marzouk, F Jaycob Unavailable Unavailable Marzouk, F Jaycob Unavailable Unavailable Marzouk, F Jaycob Unavailable Unavailable Marzouk, F Jaycob Unavailable Unavailable Marzouk, F Jaycob Unavailable Unavailable Marzouk, F Jaycob Unavailable Unavailable Marzouk, F Jaycob Unavailable Unavailable Marzouk, F Jaycob Unavailable Unavailable Marzouk, F Jaycob Unavailable Unavailable Marzouk, F Jaycob Unavailable Unavailable Marzouk, F Jaycob Unavailable Unavailable Marzouk, F Jaycob Unavailable Unavailable Marzouk, F Jaycob Unavailable Unavailable Marzouk, F Jaycob Unavailable Unavailable Marzouk, F Jaycob Unavailable Unavailable Marzouk, F Jaycob Unavailable Unavailable Marzouk, F Jaycob Unavailable Unavailable Marzouk, F Jaycob Unavailable Unavailable Marzouk, F Jaycob Unavailable Unavailable Marzouk, F Jaycob Unavailable Unavailable Marzouk, F Jaycob Unavailable Unavailable Marzouk, F Jaycob Unavailable Unavailable Marzouk, F Jaycob Unavailable Unavailable Marzouk, F Jaycob Unavailable Unavailable Marzouk, F Jaycob Unavailable Unavailable Marzouk, F Jaycob Unavailable Unavailable Marzouk, F Jaycob Unavailable Unavailable Marzouk, F Jaycob Unavailable Unavailable Marzouk, F Jaycob Unavailable Unavailable Marzouk, F Jaycob Unavailable Unavailable Marzouk, F Jaycob Unavailable Unavailable Marzouk, F Jaycob Unavailable Unavailable Marzouk, F Jaycob Unavailable Unavailable Marzouk, F Jaycob Unavailable Unavailable Marzouk, F Jaycob Unavailable Unavailable Marzouk, F Jaycob Unavailable Unavailable Marzouk, F Jaycob Unavailable Unavailable Marzouk, F Jaycob Unavailable Unavailable Marzouk, F Jaycob Unavailable Unavailable Marzouk, F Jaycob Unavailable Unavailable Marzouk, F Jaycob Unavailable Unavailable OLEA, R JAMES [employer] MAINFRAME SYSTEMS PROGRAMMER Unavailable Unavailable OLEA, R JAMES [employer] MAINFRAME SYSTEMS PROGRAMMER Unavailable Unavailable OLEA, R JAMES [employer] MAINFRAME SYSTEMS PROGRAMMER Unavailable Unavailable OLEA, R JAMES [employer] MAINFRAME SYSTEMS PROGRAMMER Unavailable Unavailable OLEA, R JAMES [employer] MAINFRAME SYSTEMS PROGRAMMER Unavailable Unavailable OLEA, R JAMES [employer] MAINFRAME SYSTEMS PROGRAMMER Unavailable Unavailable OLEA, R JAMES [employer] MAINFRAME SYSTEMS PROGRAMMER Unavailable Unavailable OLEA, R JAMES [employer] MAINFRAME SYSTEMS PROGRAMMER Unavailable Unavailable OLEA, R JAMES [employer] MAINFRAME SYSTEMS PROGRAMMER Unavailable Unavailable OLEA, R JAMES [employer] MAINFRAME SYSTEMS PROGRAMMER Unavailable Unavailable OLEA, R JAMES [employer] MAINFRAME SYSTEMS PROGRAMMER Unavailable Unavailable OLEA, R JAMES [employer] MAINFRAME SYSTEMS PROGRAMMER Unavailable Unavailable OLEA, R JAMES [employer] MAINFRAME SYSTEMS PROGRAMMER Unavailable Unavailable OLEA, R JAMES [employer] MAINFRAME SYSTEMS PROGRAMMER Unavailable Unavailable OLEA, R JAMES [employer] MAINFRAME SYSTEMS PROGRAMMER Unavailable Unavailable OLEA, R JAMES [employer] MAINFRAME SYSTEMS PROGRAMMER Unavailable Unavailable OLEA, R JAMES [employer] MAINFRAME SYSTEMS PROGRAMMER Unavailable Unavailable OLEA, R JAMES [employer] MAINFRAME SYSTEMS PROGRAMMER Unavailable Unavailable OLEA, R JAMES [employer] MAINFRAME SYSTEMS PROGRAMMER Unavailable Unavailable OLEA, R JAMES [employer] MAINFRAME SYSTEMS PROGRAMMER Unavailable Unavailable OLEA, R JAMES [employer] MAINFRAME SYSTEMS PROGRAMMER Unavailable Unavailable OLEA, R JAMES [employer] MAINFRAME SYSTEMS PROGRAMMER Unavailable Unavailable OLEA, R JAMES [employer] MAINFRAME SYSTEMS PROGRAMMER Unavailable Unavailable OLEA, R JAMES [employer] MAINFRAME SYSTEMS PROGRAMMER Unavailable Unavailable OLEA, R JAMES [employer] MAINFRAME SYSTEMS PROGRAMMER Unavailable Unavailable OLEA, R JAMES [employer] MAINFRAME SYSTEMS PROGRAMMER Unavailable Unavailable OLEA, R JAMES [employer] MAINFRAME SYSTEMS PROGRAMMER Unavailable Unavailable OLEA, R JAMES [employer] MAINFRAME SYSTEMS PROGRAMMER Unavailable Unavailable OLEA, R JAMES [employer] MAINFRAME SYSTEMS PROGRAMMER Unavailable Unavailable OLEA, R JAMES [employer] MAINFRAME SYSTEMS PROGRAMMER Unavailable Unavailable OLEA, R JAMES [employer] MAINFRAME SYSTEMS PROGRAMMER Unavailable Unavailable OLEA, R JAMES [employer] MAINFRAME SYSTEMS PROGRAMMER Unavailable Unavailable OLEA, R JAMES [employer] MAINFRAME SYSTEMS PROGRAMMER Unavailable Unavailable OLEA, R JAMES [employer] MAINFRAME SYSTEMS PROGRAMMER Unavailable Unavailable OLEA, R J[employer] MAINFRAME SYSTEMS PROGRAMMER Unavailable Unavailable OLEA, R J[employer] MAINFRAME SYSTEMS PROGRAMMER Unavailable Unavailable OLEA, R J[employer] MAINFRAME SYSTEMS PROGRAMMER Unavailable Unavailable OLEA, R J[employer] MAINFRAME SYSTEMS PROGRAMMER Unavailable Unavailable OLEA, R [employer] MAINFRAME SYSTEMS PROGRAMMER Unavailable Unavailable OLEA, R [employer] MAINFRAME SYSTEMS PROGRAMMER Unavailable Unavailable OLEA, R [employer] MAINFRAME SYSTEMS PROGRAMMER Unavailable Unavailable JOEY, M LIU DO Unavailable Unavailable JOEY, M LIU DO Unavailable Unavailable JOEY, M LIU DO Unavailable Unavailable JOEY, M LIU DO Unavailable Unavailable JOEY, M LIU DO Unavailable Unavailable JOEY, M LIU DO Unavailable Unavailable JOEY, M LIU DO Unavailable Unavailable JOEY, M LIU DO Unavailable Unavailable JOEY, M LIU DO Unavailable Unavailable JOEY, M LIU DO Unavailable Unavailable JOEY, M LIU DO Unavailable Unavailable JOEY, M LIU DO Unavailable Unavailable JOEY, M LIU DO Unavailable Unavailable JOEY, M LIU DO Unavailable Unavailable JOEY, M LIU DO Unavailable Unavailable JOEY, M LIU DO Unavailable Unavailable JOEY, M LIU DO Unavailable Unavailable JOEY, M LIU DO Unavailable Unavailable JOEY, M LIU DO Unavailable Unavailable JOEY, M LIU DO Unavailable Unavailable JOEY, M LIU DO Unavailable Unavailable JOEY, M LIU DO Unavailable Unavailable JOEY, M LIU DO Unavailable Unavailable JOEY, M LIU DO Unavailable Unavailable JOEY, M LIU DO Unavailable Unavailable JOEY, M LIU DO Unavailable Unavailable JOEY, M LIU DO Unavailable Unavailable JOEY, M LIU DO Unavailable Unavailable JOEY, M LIU DO Unavailable Unavailable JOEY, M LIU DO Unavailable Unavailable JOEY, M LIU DO Unavailable Unavailable JOEY, M LIU DO Unavailable Unavailable JOEY, M LIU DO Unavailable Unavailable JOEY, M LIU DO Unavailable Unavailable JOEY, M LIU DO Unavailable Unavailable JOEY, M LIU DO Unavailable Unavailable JOEY, M LIU DO Unavailable Unavailable JOEY, M LIU DO Unavailable Unavailable JOEY, M LIU DO Unavailable Unavailable JOEY, M LIU DO Unavailable Unavailable JOEY, M LIU DO Unavailable Unavailable JOEY, M LIU DO Unavailable Unavailable JOEY, M LIU DO Unavailable Unavailable JOEY, M LIU DO Unavailable Unavailable JOEY, M LIU DO Unavailable Unavailable JOEY, M LIU DO Unavailable Unavailable JOEY, M LIU DO Unavailable Unavailable JOEY, M LIU DO Unavailable Unavailable JOEY, M LIU DO Unavailable Unavailable JOEY, M LIU DO Unavailable Unavailable JOEY, M LIU DO Unavailable Unavailable JOEY, M LIU DO Unavailable Unavailable JOEY, M LIU DO Unavailable Unavailable JOEY, M LIU DO Unavailable Unavailable JOEY, M LIU DO Unavailable Unavailable JOEY, M LIU DO Unavailable Unavailable JOEY, M LIU DO Unavailable Unavailable JOEY, M LIU DO Unavailable Unavailable JOEY, M LIU DO Unavailable Unavailable JOEY, M LIU DO Unavailable Unavailable JOEY, M LIU DO Unavailable Unavailable JOEY, M LIU DO Unavailable Unavailable JOEY, M LIU DO Unavailable Unavailable JOEY, M LIU DO Unavailable Unavailable JOEY, M LIU DO Unavailable Unavailable JOEY, M LIU DO Unavailable Unavailable JOEY, M LIU DO Unavailable Unavailable JOEY, M LIU DO Unavailable Unavailable Re-disclosure Warning The records that you are about to access may contain information from federally-assisted alcohol or drug abuse programs. If such information is present, then the following federally mandated warning applies: This information has been disclosed to you from records protected by federal confidentiality rules (42 CFR part 2). The federal rules prohibit you from making any further disclosure of this information unless further disclosure is expressly permitted by the written consent of the person to whom it pertains or as otherwise permitted by 42 CFR part 2. A general authorization for the release of medical or other information is NOT sufficient for this purpose. The Federal rules restrict any use of the information to criminally investigate or prosecute any alcohol or drug abuse patient.The records that you are about to access may contain highly sensitive health information, the redisclosure of which is protected by Article 27-F of the [facility] Public Health law. If you continue you may have access to information: Regarding HIV / AIDS; Provided by facilities licensed or operated by the [facility] Office of Mental Health; or Provided by the [facility] Office for People With Developmental Disabilities. If such information is present, then the following [facility] mandated warning applies: This information has been disclosed to you from confidential records which are protected by state law. State law prohibits you from making any further disclosure of this information without the specific written consent of the person to whom it pertains, or as otherwise permitted by law. Any unauthorized further disclosure in violation of state law may result in a fine or correction sentence or both. A general authorization for the release of medical or other information is NOT sufficient authorization for further disc losure. Allergies and Adverse Reactions Type Description Substance Reaction Status Data Source(s ) Drug allergy Diflucan Fluconazole hives Active eCW1 ([facility]) Drug allergy Cipro Ciprofloxacin Anaphylaxis Active eCW1 ([facility]) Family History Family Member Name Family Member Gender Family Member Status Date o f Status Description Data Source(s) Unknown Male Problem MEDENT ([facility]) Encounters Encounter Providers Location Date Indications Data Source(s ) Outpatient Attender: Caesar Vale MD 09/29/2021 12:00:00 AM [facility] Outpatient Attender: Caesar Vale MD 01/20/2021 12:00:00 AM [facility] Outpatient Referrer: Caesar Vale MD 01/05/2021 12:00:00 AM [facility] [place] [address] [facility] [address] 12/28/2020 12:00:00 AM EST [facility]CW1 ([facility]) [place] [address] [facility] [address] 12/27/2020 12:00:00 AM EST eCW1 ([facility]) [place] [address] [facility] [address] 12/27/2020 12:00:00 AM EST eCW1 ([facility]) Outpatient Referrer: Caesar Vale MD 12/23/2020 11:06:52 AM EST Arthrodesis status [facility] Arthrodesis status Outpatient Attender: Caesar Vale MD [id number] 12/23/2020 12:00:00 AM EST Arthrodesis status [facility] Arthrodesis status Outpatient Referrer: Caesar Vale MD 12/23/2020 12:00:00 AM EST Spinal stenosis, cervical region [facility] Spinal stenosis, cervical region [place] [address] [facility] [place] [address] 12/19/2020 12:00:00 AM EST eCW1 ([facility]) [place] [address] [facility] [place] [address] 12/13/2020 12:00:00 AM EST eCW1 ([facility]) [place] [address] [facility] [address] 11/30/2020 12:00:00 AM EST eCW1 ([facility]) [place] [address] [facility] [address] 11/22/2020 12:00:00 AM EST eCW1 ([facility]) [place] [address] [facility] [address] 11/21/2020 12:00:00 AM EST eCW1 ([facility]) [place] [address] [facility] [address] 11/21/2020 12:00:00 AM EST eCW1 ([facility]) [place] [address] [facility] [address] 11/10/2020 12:00:00 AM EST eCW1 ([facility]) [place] [address] [facility] [place] [address] 11/01/2020 12:00:00 AM EST eCW1 ([facility]) [place] [address] [facility] [address] 10/28/2020 12:00:00 AM EST eCW1 ([facility]) Unknown [address] [facility] [place] [address] 10/25/2020 12:00:00 AM EST [facility]) [place] [address] [facility] [address] 10/24/2020 12:00:00 AM EST [facility] Office Visit, Est Pt., Level 4 [address] [place] [address] 10/20/2020 12:00:00 AM EST eCW1 ([facility]) [place] [address] [facility] [address] 10/17/2020 12:00:00 AM EST [facility] [facility]) Outpatient Attender: JAMES OLEA NP 10/13/2020 12:00:0 0 AM [facility] Office Visit Attender: Gissel Fabian MD Main office - [place] 10/10/2020 10:00:00 AM EST MEDENT ([facility], ) Outpatient Attender: LIU COOK DO [facility] Internal Med at [place] 09/21/2020 12:15:00 PM EST [facility] ([facility] Outpatient Attender: Caesar Vale MDReferrer: Caesar Vale MD [id number] 09/16/2020 12:00:00 AM [facility] [place] [address] [facility] [address] 09/12/2020 12:00:00 AM EST eCW1 ([facility]) Unknown [address] [facility] [address] 09/06/2020 12:00:00 AM EDT [facility] [place] [address] [facility] [address] 09/01/2020 12:00:00 AM EDT [facility] Outpatient Referrer: Caesar Vale MD 08/30/2020 12:00:00 AM EDT Spinal stenosis, cervical region [facility] Spinal stenosis, cervical region Outpatient Attender: JAMES OLEA NPReferrer: Caesar Arana [id number] 08/26/2020 12:00:00 AM EDT Anesthesia of skin [facility] Anesthesia of skin Unknown [address] [facility] [address] 08/18/2020 12:00:00 AM EDT eCW1 ([facility]) Outpatient Attender: Caesar Vale MD 08/15/2020 12:00:00 AM ED [facility] Unknown [address] [facility] [address] 08/12/2020 12:00:00 AM EDT eCW1 ([facility]) Unknown [address] [facility] [address] 08/12/2020 12:00:00 AM EDT eCW1 ([facility]) Outpatient Attender: JAMES LENNONeferrer: Caesar Arana 08/09/2020 12:00:00 AM [facility] Outpatient Attender: Caesar Vale MD [id number] 08/01/2020 12:00:00 AM E [facility] Outpatient Referrer: Caesar Vale MD 08/01/2020 12:00:00 AM EDT Spinal stenosis, cervical region [facility] Spinal stenosis, cervical region [facility] [address] [facility] [address] 07/29/2020 12:00:00 AM EDT eCW1 ([facility]) Outpatient Attender: Caesar Vale MD 07/11/2020 12:00:00 AM [facility] Outpatient Attender: Caesar Vale MD 07/01/2020 12:00:00 AM ED [facility] Outpatient Attender: EL CHRISTIANSENReferrer: Caesar Vale MD [id number] 06/07/2020 12:00:00 AM EDT Other spondylosis with myelopathy, cervical region [facility] Other spondylosis with myelopathy, cervi santi region [place] [address] [facility] [address] 05/30/2020 12:00:00 AM EDT eCW1 ([facility]) Outpatient Attender: LIU COOK DO [facility] Internal Med at [place] 05/25/2020 01:00:00 PM EDT [facility] ([facility] Unknown [address] [facility] [address] 05/25/2020 12:00:00 AM EDT eCW1 ([facility]) Unknown [address] [facility] [address] 05/24/2020 12:00:00 AM EDT eCW1 ([facility]) [facility] [place] [address] [facility] [address] 05/05/2020 12:00:00 AM EDT eCW1 ([facility]) Unknown [address] [facility] [address] 04/28/2020 12:00:00 AM EDT eCW1 ([facility]) Outpatient [address] [facility] [address] 04/27/2020 12:00:00 AM EDT eCW1 ([facility]) Unknown [address] [facility] [address] 04/26/2020 12:00:00 AM EDT eCW1 ([facility]) ( GYNANN) [facility]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 [address] [place] [address] 04/25/2020 12:00:00 AM EDT eCW1 ([facility]) Unknown [address] [facility] [address] 04/22/2020 12:00:00 AM EDT eCW1 ([facility]) Unknown [address] [facility] [address] 04/20/2020 12:00:00 AM EDT eCW1 ([facility]) Unknown [address] [facility] [address] 04/20/2020 12:00:00 AM EDT eCW1 ([facility]) Unknown [address] [facility] [address] 04/18/2020 12:00:00 AM EDT eCW1 ([facility]) Unknown [address] [facility] [address] 04/12/2020 12:00:00 AM EDT eCW1 ([facility]) [facility] [address] [place] [address], [place] [address] 03/30/2020 12:00:00 AM EDT eCW1 ([facility] [address] [place] [address], [place] [address] 03/29/2020 12:00:00 AM EDT [facility] [address] [place] [address], [place] [address] 03/28/2020 12:00:00 AM EDT [facility]CW[facility] [address] [address] 03/24/2020 12:00:00 AM EDT [facility]CW1 [facility] Outpatient Referrer: Gissel Fabian MD 03/22/2020 06:05:00 AM EDT [facility] [address] [address] 03/18/2020 12:00:00 AM EDT [facility]CW1 [facility] [place] [address] [address] 03/17/2020 12:00:00 AM EDT [facility]CW1 [facility] [address] [address] 03/16/2020 12:00:00 AM EDT [facility] [address] [address] 03/16/2020 12:00:00 AM EDT [facility]CW1 [facility] [place] [address] [address] 03/15/2020 12:00:00 AM EDT [facility]CW1 [facility] [address] [address] 03/15/2020 12:00:00 AM EDT [facility]CW1 [facility] [address] [facility] [address] 03/15/2020 12:00:00 AM EDT eCW1 ([facility]) [facility] [address] [facility] [address] 03/09/2020 12:00:00 AM EDT eCW1 [facility] [address] [place] [address], [place] [address] 03/01/2020 12:00:00 AM EDT eCW1 ([facility] [place]) [facility] [address] [place] [address], [place] [address] 03/01/2020 12:00:00 AM EDT eCW1 ([facility]) [facility] [address] [place] [address], [place] [address] 02/22/2020 12:00:00 AM EDT eCW1 ([facility]) Outpatient Referrer: Gissel Fabian MD 02/17/2020 05:58:00 AM EDT [facility] [address] [address] 02/17/2020 12:00:00 AM EDT eCW1 [facility] [address] [address] 02/17/2020 12:00:00 AM EDT [facility]CW1 [facility] [place] [address] [facility] [address] 02/16/2020 12:00:00 AM EDT [facility]CW1 [facility] Unknown [address] [facility] [address] 02/15/2020 12:00:00 AM EDT eCW1 ([facility] [place] [address] [address] 02/09/2020 12:00:00 AM EDT eCW1 ([facility] [address] [address] 02/08/2020 12:00:00 AM EDT eCW1 ([facility]) [facility] [address] [facility] [address] 02/08/2020 12:00:00 AM EDT eCW1 ([facility]) [facility] [address] [place] [address], [place] [address] 02/08/2020 12:00:00 AM EDT eCW1 ([facility]) Outpatient Attender: Jaycob Lucia 02/02/2020 12:00:00 AM [facility] [address] [place] [address], [place] [address] 02/01/2020 12:00:00 AM EDT eCW1 ([facility]) [facility] [address] [place] [address], [place] [address] 01/28/2020 12:00:00 AM EDT eCW1 ([facility]) [facility] [address] [place] [address], [place] [address] 01/28/2020 12:00:00 AM EDT eCW1 ([facility]) [facility] [address] [place] [address], [place] [address] 01/21/2020 12:00:00 AM EDT eCW1 ([facility]) [facility] [address] [place] [address], [place] [address] 01/20/2020 12:00:00 AM EDT eCW1 ([facility]) [facility] [address] [place] [address], [place] [address] 01/19/2020 12:00:00 AM EDT eCW1 ([facility]) [address] [address] 01/19/2020 12:00:00 AM EDT eCW1 ([facility]) Outpatient Attender: EL CHRISTIANSENReferrer: Andrew Beck MD 01/19/2020 12:00:[address] [place] [address] 01/15/2020 12:00:00 AM EST eCW1 ([facility]) [address] [address] 01/15/2020 12:00:00 AM EST eCW1 ([facility]) [address] [address] 01/13/2020 12:00:00 AM EST eCW1 ([facility]) [address] [address] 01/12/2020 12:00:00 AM EST eCW1 ([facility]) [address] [address] 01/05/2020 12:00:00 AM EST eCW1 ([facility]) [address] [address] 12/31/2019 12:00:00 AM EST eCW1 ([facility]) [address] [address] 12/31/2019 12:00:00 AM EST eCW1 ([facility]) [address] [address] 12/29/2019 12:00:00 AM EST eCW1 ([facility]) [address] [address] 12/28/2019 12:00:00 AM EST eCW1 ([facility]) [address] [address] 12/25/2019 12:00:00 AM EST eCW1 ([facility]) Outpatient Referrer: Gissel Fabian MD 12/20/2019 08:24:00 PM EST [facility] [address] [address] 12/18/2019 12:00:00 AM EST eCW1 ([facility]) [address] [address] 12/18/2019 12:00:00 AM EST eCW1 ([facility]) Outpatient Attender: Caesar Vale MD 12/18/2019 12:00:00 AM [facility] [address] [place] [address], [place] [address] 12/17/2019 12:00:00 AM EST eCW1 ([facility]) [address] [address] 12/15/2019 12:00:00 AM EST eCW1 ([facility]) [address] [address] 12/14/2019 12:00:00 AM EST eCW1 ([facility]) Outpatient Referrer: Gissel Fabian MD 12/11/2019 01:17:00 PM EST [facility] [address] [address] 12/11/2019 12:00:00 AM EST eCW1 ([facility]) [address] [address] 12/11/2019 12:00:00 AM EST eCW1 ([facility]) Outpatient Attender: Caesar Vale MD 12/11/2019 12:00:[address] [address] 12/10/2019 12:00:00 AM EST eCW1 ([facility]) [address] [address] 12/10/2019 12:00:00 AM EST eCW1 ([facility]) [address] [address] 12/10/2019 12:00:00 AM EST eCW1 ([facility]) [address] [address] 12/10/2019 12:00:00 AM EST eCW1 ([facility]) Outpatient Referrer: Gissel Fabian MD 12/08/2019 10:49:00 AM EST [facility] [address] [address] 12/03/2019 12:00:00 AM EST eCW1 ([facility]) Outpatient Attender: EL CHRISTIANSENReferrer: Andrew Beck MD 12/03/2019 12:00:00 AM EST [address] [address] 11/30/2019 12:00:00 AM EST eCW1 ([facility]) [address] [address] 11/27/2019 12:00:00 AM EST eCW1 ([facility]) Liu Cook, DO: [address] , [place] [address], Ph. Attender: LIU COOK DO [facility] - Main Schedule 11/19/2019 12:00:00 AM EST BILLIE ([facility]) [address] [address] 11/10/2019 12:00:00 AM EST eCW1 ([facility]) [address] [address] 11/09/2019 12:00:00 AM EST eCW1 ([facility]) Immunizations Vaccine Date Status Description Data Source(s) COVID-19 dose #2 given elsewhere Unspecified 12/26/2020 05:5 5:00 PM EST completed eCW1 ([facility]) COVID-19 dose #2 given elsewhere Unspecified 12/26/2020 05:5 5:00 PM EST completed eCW1 ([facility]) COVID-19 dose #1 given elsewhere Unspecified 12/05/2020 12:1 2:00 PM EST completed eCW1 ([facility]) COVID-19 dose #1 given elsewhere Unspecified 12/05/2020 12:1 2:00 PM EST completed eCW1 ([facility]) Imm: COVID-19 dose #1 given elsewhere Unspecified 12/05/2020 12:12:00 PM EST completed eCW1 ([facility]) influenza, recombinant, quadrIvalent,injectable, prese rvative free 10/20/2020 03:06:00 PM EST completed eCW1 ([facility]) influenza, recombinant, quadrIvalent,injectable, prese rvative free 10/20/2020 03:06:00 PM EST completed eCW1 ([facility]) influenza, recombinant, quadrIvalent,injectable, prese rvative free 10/20/2020 03:06:00 PM EST completed eCW1 ([facility]) influenza, recombinant, quadrIvalent,injectable, prese rvative free 10/20/2020 03:06:00 PM EST completed eCW1 ([facility]) influenza, recombinant, quadrIvalent,injectable, prese rvative free 10/20/2020 03:06:00 PM EST completed eCW1 ([facility]) influenza, recombinant, quadrIvalent,injectable, prese rvative free 10/20/2020 03:06:00 PM EST completed eCW1 ([facility]) influenza, recombinant, quadrIvalent,injectable, prese rvative free 10/20/2020 03:06:00 PM EST completed eCW1 ([facility]) influenza, recombinant, quadrIvalent,injectable, prese rvative free 10/20/2020 03:06:00 PM EST completed eCW1 ([facility]) influenza, recombinant, quadrIvalent,injectable, prese rvative free 10/20/2020 03:06:00 PM EST completed eCW1 ([facility]) influenza, recombinant, quadrIvalent,injectable, prese rvative free 10/20/2020 03:06:00 PM EST completed eCW1 ([facility]) influenza, recombinant, quadrIvalent,injectable, prese rvative free 10/20/2020 03:06:00 PM EST completed eCW1 ([facility]) influenza, recombinant, quadrIvalent,injectable, prese rvative free 10/20/2020 03:06:00 PM EST completed eCW1 ([facility]) influenza, recombinant, quadrIvalent,injectable, prese rvative free 10/20/2020 03:06:00 PM EST completed eCW1 ([facility]) influenza, recombinant, quadrIvalent,injectable, prese rvative free 10/20/2020 03:06:00 PM EST completed eCW1 ([facility]) influenza, recombinant, quadrIvalent,injectable, prese rvative free 10/20/2020 03:06:00 PM EST completed eCW1 ([facility]) Medications Medication Brand Name Start Date Product Form Dose Route Admi nistrative Instructions Pharmacy Instructions Status Indications Reaction Description Data Source(s) Miconazole Nitrate 200 MG Vaginal Suppository Miconazo le 3 200 MG Miconazole 3 200 MG 12/26/2020 12:00:00 AM EST 1.0 {suppository_at_bedtime} active Miconazole 3 200 MG eCW1 ([facility]) Miconazole Nitrate 200 MG Vaginal Suppository Miconazo le 3 200 MG Miconazole 3 200 MG 12/26/2020 12:00:00 AM EST 1.0 {suppository_at_bedtime} active Miconazole 3 200 MG eCW1 ([facility]) Oxybutynin chloride 5 MG Oral Tablet Oxybutynin Chlori de 5 MG Oxybutynin Chloride 5 MG 12/26/2020 12:00:00 AM EST acti ve Oxybutynin Chloride 5 MG eCW1 ([facility]) Oxybutynin chloride 5 MG Oral Tablet Oxybutynin Chlori de 5 MG Oxybutynin Chloride 5 MG 12/26/2020 12:00:00 AM EST acti ve Oxybutynin Chloride 5 MG eCW1 ([facility]) Oxybutynin chloride 5 MG Oral Tablet Oxybutynin Chlori de 5 MG Oxybutynin Chloride 5 MG 12/26/2020 12:00:00 AM EST acti ve Oxybutynin Chloride 5 MG eCW1 ([facility]) Miconazole Nitrate 200 MG Vaginal Suppository Miconazo le 3 200 MG Miconazole 3 200 MG 12/26/2020 12:00:00 AM EST 1.0 {suppository_at_bedtime} active Miconazole 3 200 MG eCW1 ([facility]) Spironolactone 100 MG Oral Tablet Spironolactone 100 M G Oral Tablet (ALDACTONE) Spironolactone 100 MG Oral Tablet (ALDACTONE) 12/20/2020 12:00:00 AM EST active [facility] gabapentin 100 MG Oral Capsule Gabapentin 100 MG Oral Capsule (NEURONTIN) Gabapentin 100 MG Oral Capsule (NEURONTIN) 12/20/2020 12:00:00 AM EST active [facility] Melatonin 1 MG Oral Capsule Melatonin 1 MG 12/13/2020 12:00:[address] 1.0 {capsule_at_bedtime_as_needed} active M elatonin 1 MG eCW1 ([facility]) Melatonin 1 MG Oral Capsule Melatonin 1 MG 12/13/2020 12:00:[address] 1.0 {capsule_at_bedtime_as_needed} active M elatonin 1 MG eCW1 ([facility]) gabapentin 100 MG Oral Capsule Gabapentin 100 MG Gabapentin 100 MG 11/22/2020 12:00:00 AM EST 1.0 {capsule} active G abapentin 100 MG eCW1 ([facility]) gabapentin 100 MG Oral Capsule Gabapentin 100 MG Gabapentin 100 MG 11/22/2020 12:00:00 AM EST 1.0 {capsule} active G abapentin 100 MG eCW1 ([facility]) gabapentin 100 MG Oral Capsule Gabapentin 100 MG Gabapentin 100 MG 11/22/2020 12:00:00 AM EST 1.0 {capsule} active G abapentin 100 MG eCW1 ([facility]) gabapentin 100 MG Oral Capsule Gabapentin 100 MG Gabapentin 100 MG 11/22/2020 12:00:00 AM EST 1.0 {capsule} active G abapentin 100 MG eCW1 ([facility]) gabapentin 100 MG Oral Capsule Gabapentin 100 MG Gabapentin 100 MG 11/22/2020 12:00:00 AM EST 1.0 {capsule} active G abapentin 100 MG eCW1 ([facility]) gabapentin 100 MG Oral Capsule Gabapentin 100 MG Gabapentin 100 MG 11/22/2020 12:00:00 AM EST 1.0 {capsule} active G abapentin 100 MG eCW1 ([facility]) gabapentin 100 MG Oral Capsule Gabapentin 100 MG Gabapentin 100 MG 11/22/2020 12:00:00 AM EST 1.0 {capsule} active G abapentin 100 MG eCW1 ([facility]) gabapentin 100 MG Oral Capsule Gabapentin 100 MG Gabapentin 100 MG 11/22/2020 12:00:00 AM EST 1.0 {capsule} active G abapentin 100 MG eCW1 ([facility]) Potassium Chloride 10 MEQ Extended Relea se Oral Tablet Potassium Chloride ER 10 MEQ Oral Tablet Extended Release Potassium Chloride ER 10 MEQ Oral Tablet Extended Release 09/21/2020 12:00:00 AM EST active [facility] Levofloxacin 500 MG Oral Tablet levoFLOXacin 500 MG Or al Tablet (LEVAQUIN) levoFLOXacin 500 MG Oral Tablet (LEVAQUIN) 08/08/2020 12:00:00 AM EDT active [facility] Fluconazole 100 MG Oral Tablet [Diflucan] Diflucan 100 MG Di flucan 100 MG 05/16/2020 12:00:00 AM EDT 1.0 {tablet} active Diflucan 100 MG eCW1 ([facility]) EQL Miconazole 3 200 & 2 MG (9GM) EQL Miconazole 3 200 & 2 M G (9GM) 05/16/2020 12:00:00 AM EDT active [facility] nazole 3 200 & 2 MG (9GM) eCW1 ([facility]) EQL Miconazole 3 200 & 2 MG (9GM) EQL Miconazole 3 200 & 2 M G (9GM) 05/16/2020 12:00:00 AM EDT active [facility] nazole 3 200 & 2 MG (9GM) eCW1 ([facility]) Fluconazole 100 MG Oral Tablet [Diflucan] Diflucan 100 MG Di flucan 100 MG 05/16/2020 12:00:00 AM EDT 1.0 {tablet} active Diflucan 100 MG eCW1 ([facility]) Fluconazole 100 MG Oral Tablet [Diflucan] Diflucan 100 MG Di flucan 100 MG 05/16/2020 12:00:00 AM EDT 1.0 {tablet} active Diflucan 100 MG eCW1 ([facility]) EQL Miconazole 3 200 & 2 MG (9GM) EQL Miconazole 3 200 & 2 M G (9GM) 05/16/2020 12:00:00 AM EDT active [facility] nazole 3 200 & 2 MG (9GM) eCW1 ([facility]) EQL Miconazole 3 200 & 2 MG (9GM) EQL Miconazole 3 200 & 2 M G (9GM) 05/16/2020 12:00:00 AM EDT active [facility] nazole 3 200 & 2 MG (9GM) eCW1 ([facility]) EQL Miconazole 3 200 & 2 MG (9GM) EQL Miconazole 3 200 & 2 M G (9GM) 05/16/2020 12:00:00 AM EDT active [facility] nazole 3 200 & 2 MG (9GM) eCW1 ([facility]) Fluconazole 100 MG Oral Tablet [Diflucan] Diflucan 100 MG Di flucan 100 MG 05/16/2020 12:00:00 AM EDT 1.0 {tablet} active Diflucan 100 MG eCW1 ([facility]) EQL Miconazole 3 200 & 2 MG (9GM) EQL Miconazole 3 200 & 2 M G (9GM) 05/16/2020 12:00:00 AM EDT active [facility] nazole 3 200 & 2 MG (9GM) eCW1 ([facility]) Fluconazole 100 MG Oral Tablet [Diflucan] Diflucan 100 MG Di flucan 100 MG 05/16/2020 12:00:00 AM EDT 1.0 {tablet} active Diflucan 100 MG eCW1 ([facility]) Fluconazole 100 MG Oral Tablet [Diflucan] Diflucan 100 MG Di flucan 100 MG 05/16/2020 12:00:00 AM EDT 1.0 {tablet} active Diflucan 100 MG eCW1 ([facility]) EQL Miconazole 3 200 & 2 MG (9GM) EQL Miconazole 3 200 & 2 M G (9GM) 05/16/2020 12:00:00 AM EDT active [facility] nazole 3 200 & 2 MG (9GM) eCW1 ([facility]) EQL Miconazole 3 200 & 2 MG (9GM) EQL Miconazole 3 200 & 2 M G (9GM) 05/16/2020 12:00:00 AM EDT active [facility] nazole 3 200 & 2 MG (9GM) eCW1 ([facility]) EQL Miconazole 3 200 & 2 MG (9GM) EQL Miconazole 3 200 & 2 M G (9GM) 05/16/2020 12:00:00 AM EDT active [facility] nazole 3 200 & 2 MG (9GM) eCW1 ([facility]) EQL Miconazole 3 200 & 2 MG (9GM) EQL Miconazole 3 200 & 2 M G (9GM) 05/16/2020 12:00:00 AM EDT active [facility] nazole 3 200 & 2 MG (9GM) eCW1 ([facility]) EQL Miconazole 3 200 & 2 MG (9GM) EQL Miconazole 3 200 & 2 M G (9GM) 05/16/2020 12:00:00 AM EDT active [facility] nazole 3 200 & 2 MG (9GM) eCW1 ([facility]) Fluconazole 100 MG Oral Tablet [Diflucan] Diflucan 100 MG Di flucan 100 MG 05/16/2020 12:00:00 AM EDT 1.0 {tablet} active Diflucan 100 MG eCW1 ([facility]) EQL Miconazole 3 200 & 2 MG (9GM) EQL Miconazole 3 200 & 2 M G (9GM) 05/16/2020 12:00:00 AM EDT active [facility] nazole 3 200 & 2 MG (9GM) eCW1 ([facility]) EQL Miconazole 3 200 & 2 MG (9GM) EQL Miconazole 3 200 & 2 M G (9GM) 05/16/2020 12:00:00 AM EDT active [facility] n[facility] 3 200 & 2 MG (9GM) eCW1 ([facility]) EQL Miconazole 3 200 & 2 MG (9GM) EQL Miconazole 3 200 & 2 M G (9GM) 05/16/2020 12:00:00 AM EDT active [facility] nazole 3 200 & 2 MG (9GM) eCW1 ([facility]) Fluconazole 100 MG Oral Tablet [Diflucan] Diflucan 100 MG Di flucan 100 MG 05/16/2020 12:00:00 AM EDT 1.0 {tablet} active Diflucan 100 MG eCW1 ([facility]) EQL Miconazole 3 200 & 2 MG (9GM) EQL Miconazole 3 200 & 2 M G (9GM) 05/16/2020 12:00:00 AM EDT active [facility] nazole 3 200 & 2 MG (9GM) eCW1 ([facility]) EQL Miconazole 3 200 & 2 MG (9GM) EQL Miconazole 3 200 & 2 M G (9GM) 05/16/2020 12:00:00 AM EDT active [facility] nazole 3 200 & 2 MG (9GM) eCW1 ([facility]) EQL Miconazole 3 200 & 2 MG (9GM) EQL Miconazole 3 200 & 2 M G (9GM) 05/16/2020 12:00:00 AM EDT active [facility] nazole 3 200 & 2 MG (9GM) eCW1 ([facility]) EQL Miconazole 3 200 & 2 MG (9GM) EQL Miconazole 3 200 & 2 M G (9GM) 05/16/2020 12:00:00 AM EDT active [facility] nazole 3 200 & 2 MG (9GM) eCW1 ([facility]) EQL Miconazole 3 200 & 2 MG (9GM) EQL Miconazole 3 200 & 2 M G (9GM) 05/16/2020 12:00:00 AM EDT active [facility] nazole 3 200 & 2 MG (9GM) eCW1 ([facility]) EQL Miconazole 3 200 & 2 MG (9GM) EQL Miconazole 3 200 & 2 M G (9GM) 05/16/2020 12:00:00 AM EDT active EQL [facility] nazole 3 200 & 2 MG (9GM) eCW1 ([facility]) Fluconazole 100 MG Oral Tablet [Diflucan] Diflucan 100 MG Di flucan 100 MG 05/16/2020 12:00:00 AM EDT 1.0 {tablet} active Diflucan 100 MG eCW1 ([facility]) EQL Miconazole 3 200 & 2 MG (9GM) EQL Miconazole 3 200 & 2 M G (9GM) 05/16/2020 12:00:00 AM EDT active EQL [facility] nazole 3 200 & 2 MG (9GM) eCW1 ([facility]) EQL Miconazole 3 200 & 2 MG (9GM) EQL Miconazole 3 200 & 2 M G (9GM) 05/16/2020 12:00:00 AM EDT active EQL [facility] nazole 3 200 & 2 MG (9GM) eCW1 ([facility]) Fluconazole 100 MG Oral Tablet [Diflucan] Diflucan 100 MG Di flucan 100 MG 05/16/2020 12:00:00 AM EDT 1.0 {tablet} active Diflucan 100 MG [facility] [place]) EQL Miconazole 3 200 & 2 MG (9GM) EQL Miconazole 3 200 & 2 M G (9GM) 05/16/2020 12:00:00 AM EDT active EQL [place]vester nazole 3 200 & 2 MG (9GM) eCW1 ([facility] [place]) EQL Miconazole 3 200 & 2 MG (9GM) EQL Miconazole 3 200 & 2 M G (9GM) 05/16/2020 12:00:00 AM EDT active EQL Sylvester nazole 3 200 & 2 MG (9GM) eCW1 ([facility] [place]) EQL Miconazole 3 200 & 2 MG (9GM) EQL Miconazole 3 200 & 2 M G (9GM) 05/16/2020 12:00:00 AM EDT active EQL [place]vester nazole 3 200 & 2 MG (9GM) eCW1 ([facility] [place]) 168 HR Buprenorphine 0.005 MG/HR Transdermal Patch [Bu Trans] Butrans 5 MCG/HR Butrans 5 MCG/HR 05/05/2020 12:00:00 AM EDT 1.0 {patch_to_skin} active Butrans 5 MCG/HR eCW1 ([facility]) 168 HR Buprenorphine 0.005 MG/HR Transdermal Patch [Bu Trans] Butrans 5 MCG/HR Butrans 5 MCG/HR 05/05/2020 12:00:00 AM EDT 1.0 {patch_to_skin} active Butrans 5 MCG/HR eCW1 ([facility]) 168 HR Buprenorphine 0.005 MG/HR Transdermal Patch [Bu Trans] Butrans 5 MCG/HR Butrans 5 MCG/HR 05/05/2020 12:00:00 AM EDT 1.0 {patch_to_skin} active Butrans 5 MCG/HR eCW1 ([facility]) 168 HR Buprenorphine 0.005 MG/HR Transdermal Patch [Bu Trans] Butrans 5 MCG/HR Butrans 5 MCG/HR 05/05/2020 12:00:00 AM EDT 1.0 {patch_to_skin} active Butrans 5 MCG/HR eCW1 ([facility]) 168 HR Buprenorphine 0.005 MG/HR Transdermal Patch [Bu Trans] Butrans 5 MCG/HR Butrans 5 MCG/HR 05/05/2020 12:00:00 AM EDT 1.0 {patch_to_skin} active Butrans 5 MCG/HR eCW1 ([facility]) 168 HR Buprenorphine 0.005 MG/HR Transdermal Patch [Bu Trans] Butrans 5 MCG/HR Butrans 5 MCG/HR 05/05/2020 12:00:00 AM EDT 1.0 {patch_to_skin} active Butrans 5 MCG/HR eCW1 ([facility]) 168 HR Buprenorphine 0.005 MG/HR Transdermal Patch [Bu Trans] Butrans 5 MCG/HR Butrans 5 MCG/HR 05/05/2020 12:00:00 AM EDT 1.0 {patch_to_skin} active Butrans 5 MCG/HR eCW1 ([facility]) 168 HR Buprenorphine 0.005 MG/HR Transdermal Patch [Bu Trans] Butrans 5 MCG/HR Butrans 5 MCG/HR 05/05/2020 12:00:00 AM EDT 1.0 {patch_to_skin} active Butrans 5 MCG/HR eCW1 ([facility]) 168 HR Buprenorphine 0.005 MG/HR Transdermal Patch [Bu Trans] Butrans 5 MCG/HR Butrans 5 MCG/HR 05/05/2020 12:00:00 AM EDT 1.0 {patch_to_skin} active Butrans 5 MCG/HR eCW1 ([facility]) 168 HR Buprenorphine 0.005 MG/HR Transdermal Patch [Bu Trans] Butrans 5 MCG/HR Butrans 5 MCG/HR 05/05/2020 12:00:00 AM EDT 1.0 {patch_to_skin} active Butrans 5 MCG/HR eCW1 ([facility]) linezolid 600 MG Oral Tablet Linezolid 600 MG Linezolid 600 MG 04/20/2020 12:00:00 AM EDT 1.0 {tablet} active Li nezolid 600 MG eCW1 ([facility]) linezolid 600 MG Oral Tablet Linezolid 600 MG Linezolid 600 MG 04/20/2020 12:00:00 AM EDT 1.0 {tablet} active Li nezolid 600 MG eCW1 ([facility]) linezolid 600 MG Oral Tablet Linezolid 600 MG Linezolid 600 MG 04/20/2020 12:00:00 AM EDT 1.0 {tablet} active Li nezolid 600 MG eCW1 ([facility]) linezolid 600 MG Oral Tablet Linezolid 600 MG Linezolid 600 MG 04/20/2020 12:00:00 AM EDT 1.0 {tablet} active Li nezolid 600 MG eCW1 ([facility] [place]) linezolid 600 MG Oral Tablet Linezolid 600 MG Linezolid 600 MG 04/20/2020 12:00:00 AM EDT 1.0 {tablet} active Li nezolid 600 MG eCW1 ([facility] [place]) linezolid 600 MG Oral Tablet Linezolid 600 MG Linezolid 600 MG 04/20/2020 12:00:00 AM EDT 1.0 {tablet} active Li nezolid 600 MG eCW1 ([facility] [place]) linezolid 600 MG Oral Tablet Linezolid 600 MG Linezolid 600 MG 04/20/2020 12:00:00 AM EDT 1.0 {tablet} active Li nezolid 600 MG eCW1 ([facility] [place]) Spironolactone 50 MG Oral Tablet Spironolactone 50 MG 2019 12:00:00 AM EDT 1.0 {tablet} active Spironolact one 50 MG eCW1 ([facility] [place]) Spironolactone 50 MG Oral Tablet Spironolactone 50 MG 2019 12:00:00 AM EDT 1.0 {tablet} active Spironolact one 50 MG eCW1 ([facility] [place]) Spironolactone 50 MG Oral Tablet Spironolactone 50 MG 2019 12:00:00 AM EDT 1.0 {tablet} active Spironolact one 50 MG eCW1 ([facility] [place]) Spironolactone 100 MG Oral Tablet Spironolactone 100 MG 01/11 12:00:00 AM EDT active 1 tablet eCW1 (Counts include 234 beds at the [facility]) Spironolactone 50 MG Oral Tablet Spironolactone 50 MG 2019 12:00:00 AM EDT 1.0 {tablet} active Spironolact one 50 MG eCW1 ([facility] [place]) Spironolactone 50 MG Oral Tablet Spironolactone 50 MG 2019 12:00:00 AM EDT 1.0 {tablet} active Spironolact one 50 MG eCW1 ([facility] [place]) Spironolactone 100 MG Oral Tablet Spironolactone 100 MG 01/11 12:00:00 AM EDT active 1 tablet eCW1 (Counts include 234 beds at the [facility]) Spironolactone 100 MG Oral Tablet Spironolactone 100 MG 01/11 12:00:00 AM EDT active 1 tablet eCW1 (Counts include 234 beds at the [facility]) Spironolactone 50 MG Oral Tablet Spironolactone 50 MG 2019 12:00:00 AM EDT 1.0 {tablet} active Spironolact one 50 MG eCW1 ([facility] [place]) Spironolactone 100 MG Oral Tablet Spironolactone 100 MG 01/11 12:00:00 AM EDT 1.0 {tablet} active Spironolact one 100 MG eCW1 ([facility]) Spironolactone 50 MG Oral Tablet Spironolactone 50 MG 2019 12:00:00 AM EDT 1.0 {tablet} active Spironolact one 50 MG eCW1 ([facility] [place]) Spironolactone 50 MG Oral Tablet Spironolactone 50 MG 2019 12:00:00 AM EDT 1.0 {tablet} active Spironolact one 50 MG eCW1 ([facility] [place]) Spironolactone 100 MG Oral Tablet Spironolactone 100 MG 01/11 12:00:00 AM EDT active 1 tablet eCW1 (Counts include 234 beds at the [facility]) Spironolactone 50 MG Oral Tablet Spironolactone 50 MG 2019 12:00:00 AM EDT 1.0 {tablet} active Spironolact one 50 MG eCW1 ([facility] [place]) Spironolactone 50 MG Oral Tablet Spironolactone 50 MG 2019 12:00:00 AM EDT 1.0 {tablet} active Spironolact one 50 MG eCW1 ([facility]) Spironolactone 50 MG Oral Tablet Spironolactone 50 MG 2019 12:00:00 AM EDT 1.0 {tablet} active Spironolact one 50 MG eCW1 ([facility] [place]) Spironolactone 50 MG Oral Tablet Spironolactone 50 MG 2019 12:00:00 AM EDT 1.0 {tablet} active Spironolact one 50 MG eCW1 ([facility]) Spironolactone 50 MG Oral Tablet Spironolactone 50 MG 2019 12:00:00 AM EDT 1.0 {tablet} active Spironolact one 50 MG eCW1 ([facility]) Spironolactone 50 MG Oral Tablet Spironolactone 50 MG 2019 12:00:00 AM EDT 1.0 {tablet} active Spironolact one 50 MG eCW1 ([facility] [place]) Spironolactone 100 MG Oral Tablet Spironolactone 100 MG 01/11 12:00:00 AM EDT 1.0 {tablet} active Spironolact one 100 MG eCW1 ([facility]) Spironolactone 50 MG Oral Tablet Spironolactone 50 MG 2019 12:00:00 AM EDT 1.0 {tablet} active Spironolact one 50 MG eCW1 ([facility] [place]) Spironolactone 100 MG Oral Tablet Spironolactone 100 MG 01/11 12:00:00 AM EDT 1.0 {tablet} active Spironolact one 100 MG eCW1 ([facility]) Spironolactone 50 MG Oral Tablet Spironolactone 50 MG 2019 12:00:00 AM EDT 1.0 {tablet} active Spironolact one 50 MG eCW1 ([facility] [place]) Spironolactone 50 MG Oral Tablet Spironolactone 50 MG 2019 12:00:00 AM EDT 1.0 {tablet} active Spironolact one 50 MG eCW1 ([facility] [place]) Spironolactone 50 MG Oral Tablet Spironolactone 50 MG 2019 12:00:00 AM EDT 1.0 {tablet} active Spironolact one 50 MG eCW1 ([facility] [place]) Spironolactone 50 MG Oral Tablet Spironolactone 50 MG 2019 12:00:00 AM EDT 1.0 {tablet} active Spironolact one 50 MG eCW1 ([facility] [place]) Spironolactone 100 MG Oral Tablet Spironolactone 100 MG 01/11 12:00:00 AM EDT active 1 tablet eCW1 (Counts include 234 beds at the [facility]) Spironolactone 100 MG Oral Tablet Spironolactone 100 MG 01/11 12:00:00 AM EDT 1.0 {tablet} active Spironolact one 100 MG eCW1 ([facility] [place]) Spironolactone 100 MG Oral Tablet Spironolactone 100 MG 01/11 12:00:00 AM EDT 1.0 {tablet} active Spironolact one 100 MG eCW1 ([facility] [place]) Spironolactone 100 MG Oral Tablet Spironolactone 100 MG 01/11 12:00:00 AM EDT 1.0 {tablet} active Spironolact one 100 MG eCW1 ([facility] [place]) Spironolactone 50 MG Oral Tablet Spironolactone 50 MG 2019 12:00:00 AM EDT 1.0 {tablet} active Spironolact one 50 MG eCW1 ([facility] [place]) Spironolactone 50 MG Oral Tablet Spironolactone 50 MG 2019 12:00:00 AM EDT 1.0 {tablet} active Spironolact one 50 MG eCW1 ([facility] [place]) Spironolactone 100 MG Oral Tablet Spironolactone 100 MG 01/11 12:00:00 AM EDT 1.0 {tablet} active Spironolact one 100 MG eCW1 ([facility] [place]) Spironolactone 50 MG Oral Tablet Spironolactone 50 MG 2019 12:00:00 AM EDT 1.0 {tablet} active Spironolact one 50 MG eCW1 ([facility] [place]) Spironolactone 50 MG Oral Tablet Spironolactone 50 MG 2019 12:00:00 AM EDT 1.0 {tablet} active Spironolact one 50 MG eCW1 ([facility] [place]) Spironolactone 50 MG Oral Tablet Spironolactone 50 MG 2019 12:00:00 AM EDT 1.0 {tablet} active Spironolact one 50 MG eCW1 ([facility] [place]) Spironolactone 100 MG Oral Tablet Spironolactone 100 MG 01/11 12:00:00 AM EDT 1.0 {tablet} active Spironolact one 100 MG eCW1 ([facility]) Spironolactone 50 MG Oral Tablet Spironolactone 50 MG 2019 12:00:00 AM EDT 1.0 {tablet} active Spironolact one 50 MG eCW1 ([facility] [place]) Potassium Chloride 10 MEQ Extended Relea se Oral Tablet Potassium Chloride ER 10 MEQ Potassium Chloride ER 10 MEQ 01/19/2020 12:00:00 AM EDT active 1 tablet with food eCW1 ([facility]) Spironolactone 100 MG Oral Tablet Spironolactone 100 MG 01/09 12:00:00 AM EDT active 1 tablet eCW1 (Counts include 234 beds at the [facility]) Potassium Chloride 10 MEQ Extended Relea se Oral Tablet Potassium Chloride ER 10 MEQ Potassium Chloride ER 10 MEQ 01/19/2020 12:00:00 AM EDT active 1 tablet with food eCW1 ([facility]) Spironolactone 100 MG Oral Tablet Spironolactone 100 MG 01/09 12:00:00 AM EDT active 1 tablet eCW1 (Counts include 234 beds at the [facility]) Potassium Chloride 10 MEQ Extended Relea se Oral Tablet Potassium Chloride ER 10 MEQ Potassium Chloride ER 10 MEQ 01/19/2020 12:00:00 AM EDT active 1 tablet with food eCW1 ([facility]) Potassium Chloride 10 MEQ Extended Relea se Oral Tablet Potassium Chloride ER 10 MEQ Potassium Chloride ER 10 MEQ 01/19/2020 12:00:00 AM EDT active 1 tablet with food eCW1 ([facility]) Spironolactone 100 MG Oral Tablet Spironolactone 100 MG 01/09 12:00:00 AM EDT active 1 tablet eCW1 (Counts include 234 beds at the [facility]) Potassium Chloride 10 MEQ Extended Relea se Oral Tablet Potassium Chloride ER 10 MEQ Potassium Chloride ER 10 MEQ 01/19/2020 12:00:00 AM EDT active 1 tablet with food eCW1 ([facility]) Spironolactone 25 MG Oral Tablet Spironolactone 25 MG 2019 12:00:00 AM EDT active 1 tablet eCW1 (Counts include 234 beds at the [facility]) Loratadine 10 MG Oral Tablet Loratadine 10 MG 01/14/2020 12:00:[address] active 1 tablet eCW1 ([facility]) Loratadine 10 MG Oral Tablet Loratadine 10 MG 01/14/2020 12:00:[address] active 1 tablet eCW1 ([facility]) Lidocaine Hydrochloride 40 MG/ML Topical Cream Lidocai ne HCl 4 % Lidocaine HCl 4 % 01/12/2020 12:00:00 AM EST active Lidocaine HCl 4 % eCW1 ([facility]) Methocarbamol 500 MG Oral Tablet Methocarbamol 500 MG 2019 12:00:00 AM EST active 1 tablet eCW1 (Counts include 234 beds at the [facility]) Lidocaine Hydrochloride 40 MG/ML Topical Cream Lidocai ne HCl 4 % Lidocaine HCl 4 % 01/12/2020 12:00:00 AM EST active Lidocaine HCl 4 % eCW1 ([facility] [place]) Lidocaine Hydrochloride 40 MG/ML Topical Cream Lidocai ne HCl 4 % Lidocaine HCl 4 % 01/12/2020 12:00:00 AM EST active 1 application, to neck, back or legs prn eCW1 ([facility] [place]) Methocarbamol 750 MG Oral Tablet Methocarbamol 750 MG 2019 12:00:00 AM EST active 1 tablet eCW1 (Counts include 234 beds at the [facility]) Lidocaine Hydrochloride 40 MG/ML Mucous Membrane Topical Solution Lidocaine HCl 4 % Lidocaine HCl 4 % 01/12/2020 12:00:00 AM EST active 1 application, to neck, back or legs prn eCW1 ([facility] [place]) Lidocaine Hydrochloride 40 MG/ML Topical Cream Lidocai ne HCl 4 % Lidocaine HCl 4 % 01/12/2020 12:00:00 AM EST active Lidocaine HCl 4 % eCW1 ([facility] [place]) Lidocaine Hydrochloride 40 MG/ML Topical Cream Lidocai ne HCl 4 % Lidocaine HCl 4 % 01/12/2020 12:00:00 AM EST active Lidocaine HCl 4 % eCW1 ([facility] [place]) Methocarbamol 500 MG Oral Tablet Methocarbamol 500 MG 2019 12:00:00 AM EST active 1 tablet eCW1 (Counts include 234 beds at the [facility]) Lidocaine Hydrochloride 40 MG/ML Topical Cream Lidocai ne HCl 4 % Lidocaine HCl 4 % 01/12/2020 12:00:00 AM EST active 1 application, to neck, back or legs prn eCW1 ([facility]) Lidocaine Hydrochloride 40 MG/ML Topical Cream Lidocai ne HCl 4 % Lidocaine HCl 4 % 01/12/2020 12:00:00 AM EST active Lidocaine HCl 4 % eCW1 ([facility]) Lidocaine Hydrochloride 40 MG/ML Topical Cream Lidocai ne HCl 4 % Lidocaine HCl 4 % 01/12/2020 12:00:00 AM EST active Lidocaine HCl 4 % eCW1 ([facility]) Lidocaine Hydrochloride 40 MG/ML Topical Cream Lidocai ne HCl 4 % Lidocaine HCl 4 % 01/12/2020 12:00:00 AM EST active Lidocaine HCl 4 % eCW1 ([facility]) Lidocaine Hydrochloride 40 MG/ML Topical Cream Lidocai ne HCl 4 % Lidocaine HCl 4 % 01/12/2020 12:00:00 AM EST active Lidocaine HCl 4 % eCW1 ([facility]) Lidocaine Hydrochloride 40 MG/ML Topical Cream Lidocai ne HCl 4 % Lidocaine HCl 4 % 01/12/2020 12:00:00 AM EST active Lidocaine HCl 4 % eCW1 ([facility] [place]) Lidocaine Hydrochloride 40 MG/ML Topical Cream Lidocai ne HCl 4 % Lidocaine HCl 4 % 01/12/2020 12:00:00 AM EST active Lidocaine HCl 4 % eCW1 ([facility]) Lidocaine Hydrochloride 40 MG/ML Topical Cream Lidocai ne HCl 4 % Lidocaine HCl 4 % 01/12/2020 12:00:00 AM EST active Lidocaine HCl 4 % eCW1 ([facility] [place]) Lidocaine Hydrochloride 40 MG/ML Topical Cream Lidocai ne HCl 4 % Lidocaine HCl 4 % 01/12/2020 12:00:00 AM EST active Lidocaine HCl 4 % eCW1 ([facility]) Methocarbamol 750 MG Oral Tablet Methocarbamol 750 MG 2019 12:00:00 AM EST active 1 tablet eCW1 (Counts include 234 beds at the [facility]) Lidocaine Hydrochloride 40 MG/ML Topical Cream Lidocai ne HCl 4 % Lidocaine HCl 4 % 01/12/2020 12:00:00 AM EST active Lidocaine HCl 4 % eCW1 ([facility]) Lidocaine Hydrochloride 40 MG/ML Topical Cream Lidocai ne HCl 4 % Lidocaine HCl 4 % 01/12/2020 12:00:00 AM EST active Lidocaine HCl 4 % eCW1 ([facility] [place]) Lidocaine Hydrochloride 40 MG/ML Topical Cream Lidocai ne HCl 4 % Lidocaine HCl 4 % 01/12/2020 12:00:00 AM EST active Lidocaine HCl 4 % eCW1 ([facility] [place]) Lidocaine Hydrochloride 40 MG/ML Topical Cream Lidocai ne HCl 4 % Lidocaine HCl 4 % 01/12/2020 12:00:00 AM EST active Lidocaine HCl 4 % eCW1 ([facility] [place]) Lidocaine Hydrochloride 40 MG/ML Topical Cream Lidocai ne HCl 4 % Lidocaine HCl 4 % 01/12/2020 12:00:00 AM EST active Lidocaine HCl 4 % eCW1 ([facility] [place]) Lidocaine Hydrochloride 40 MG/ML Topical Cream Lidocai ne HCl 4 % Lidocaine HCl 4 % 01/12/2020 12:00:00 AM EST active Lidocaine HCl 4 % eCW1 ([facility] [place]) Lidocaine Hydrochloride 40 MG/ML Topical Cream Lidocai ne HCl 4 % Lidocaine HCl 4 % 01/12/2020 12:00:00 AM EST active Lidocaine HCl 4 % eCW1 ([facility] [place]) Lidocaine Hydrochloride 40 MG/ML Topical Cream Lidocai ne HCl 4 % Lidocaine HCl 4 % 01/12/2020 12:00:00 AM EST active Lidocaine HCl 4 % eCW1 ([facility] [place]) Lidocaine Hydrochloride 40 MG/ML Topical Cream Lidocai ne HCl 4 % Lidocaine HCl 4 % 01/12/2020 12:00:00 AM EST active Lidocaine HCl 4 % eCW1 ([facility] [place]) Lidocaine Hydrochloride 40 MG/ML Topical Cream Lidocai ne HCl 4 % Lidocaine HCl 4 % 01/12/2020 12:00:00 AM EST active 1 application, to neck, back or legs prn eCW1 ([facility] [place]) Lidocaine Hydrochloride 40 MG/ML Topical Cream Lidocai ne HCl 4 % Lidocaine HCl 4 % 01/12/2020 12:00:00 AM EST active Lidocaine HCl 4 % eCW1 ([facility] [place]) Lidocaine Hydrochloride 40 MG/ML Topical Cream Lidocai ne HCl 4 % Lidocaine HCl 4 % 01/12/2020 12:00:00 AM EST active Lidocaine HCl 4 % eCW1 ([facility] [place]) Lidocaine Hydrochloride 40 MG/ML Topical Cream Lidocai ne HCl 4 % Lidocaine HCl 4 % 01/12/2020 12:00:00 AM EST active 1 application, to neck, back or legs prn eCW1 ([facility] [place]) Lidocaine Hydrochloride 40 MG/ML Topical Cream Lidocai ne HCl 4 % Lidocaine HCl 4 % 01/12/2020 12:00:00 AM EST active Lidocaine HCl 4 % eCW1 ([facility] [place]) Methocarbamol 500 MG Oral Tablet Methocarbamol 500 MG 2019 12:00:00 AM EST active 1 tablet eCW1 (Counts include 234 beds at the [facility]) Lidocaine Hydrochloride 40 MG/ML Topical Cream Lidocai ne HCl 4 % Lidocaine HCl 4 % 01/12/2020 12:00:00 AM EST active 1 application, to neck, back or legs prn eCW1 ([facility] [place]) Lidocaine Hydrochloride 40 MG/ML Topical Cream Lidocai ne HCl 4 % Lidocaine HCl 4 % 01/12/2020 12:00:00 AM EST active Lidocaine HCl 4 % eCW1 ([facility] [place]) Lidocaine Hydrochloride 40 MG/ML Topical Cream Lidocai ne HCl 4 % Lidocaine HCl 4 % 01/12/2020 12:00:00 AM EST active 1 application, to neck, back or legs prn eCW1 ([facility]) Lidocaine Hydrochloride 40 MG/ML Topical Cream Lidocai ne HCl 4 % Lidocaine HCl 4 % 01/12/2020 12:00:00 AM EST active Lidocaine HCl 4 % eCW1 ([facility] [place]) Lidocaine Hydrochloride 40 MG/ML Topical Cream Lidocai ne HCl 4 % Lidocaine HCl 4 % 01/12/2020 12:00:00 AM EST active Lidocaine HCl 4 % eCW1 ([facility]) Lidocaine Hydrochloride 40 MG/ML Topical Cream Lidocai ne HCl 4 % Lidocaine HCl 4 % 01/12/2020 12:00:00 AM EST active Lidocaine HCl 4 % eCW1 ([facility]) Methocarbamol 500 MG Oral Tablet Methocarbamol 500 MG 2019 12:00:00 AM EST active 2 tablets eCW1 ([facility]) Lidocaine Hydrochloride 40 MG/ML Topical Cream Lidocai ne HCl 4 % Lidocaine HCl 4 % 01/12/2020 12:00:00 AM EST active Lidocaine HCl 4 % eCW1 ([facility]) Lidocaine Hydrochloride 40 MG/ML Topical Cream Lidocai ne HCl 4 % Lidocaine HCl 4 % 01/12/2020 12:00:00 AM EST active Lidocaine HCl 4 % eCW1 ([facility]) Prednisone 20 MG Oral Tablet PredniSONE 20 MG PredniSONE 20 MG 12/31/2019 12:00:00 AM EST active 1 tablet eCW1 ([facility]) Cyanocobalamin 500 MCG UNK 12/09/2019 12:00:00 AM EST 1.0 {t ablet} suspended Cyanocobalamin 500 MCG eCW1 ([facility]) buspirone hydrochloride 30 MG Oral Tablet BusPIRone HC l 30 MG BusPIRone HCl 30 MG 12/09/2019 12:00:00 AM EST active 1 tablet eCW1 ([facility]) buspirone hydrochloride 30 MG Oral Tablet BusPIRone HC l 30 MG BusPIRone HCl 30 MG 12/09/2019 12:00:00 AM EST active 1 tablet eCW1 ([facility]) Cyanocobalamin 500 MCG UNK 12/09/2019 12:00:00 AM EST active 1 tablet eCW1 ([facility]) buspirone hydrochloride 30 MG Oral Tablet BusPIRone HC l 30 MG BusPIRone HCl 30 MG 12/09/2019 12:00:00 AM EST active 1 tablet eCW1 ([facility]) Cyanocobalamin 500 MCG UNK 12/09/2019 12:00:00 AM EST 1.0 {t ablet} active Cyanocobalamin 500 MCG eCW1 ([facility]) Cyanocobalamin 500 MCG UNK 12/09/2019 12:00:00 AM EST 1.0 {t ablet} active Cyanocobalamin 500 MCG eCW1 ([facility]) Cyanocobalamin 500 MCG UNK 12/09/2019 12:00:00 AM EST 1.0 {t ablet} active Cyanocobalamin 500 MCG eCW1 ([facility]) Cyanocobalamin 500 MCG UNK 12/09/2019 12:00:00 AM EST active 1 tablet eCW1 ([facility]) buspirone hydrochloride 30 MG Oral Tablet BusPIRone HC l 30 MG BusPIRone HCl 30 MG 12/09/2019 12:00:00 AM EST active 1 tablet eCW1 ([facility]) Cyanocobalamin 500 MCG UNK 12/09/2019 12:00:00 AM EST 1.0 {t ablet} active Cyanocobalamin 500 MCG eCW1 ([facility]) Cyanocobalamin 500 MCG UNK 12/09/2019 12:00:00 AM EST 1.0 {t ablet} active Cyanocobalamin 500 MCG eCW1 ([facility]) buspirone hydrochloride 30 MG Oral Tablet BusPIRone HC l 30 MG BusPIRone HCl 30 MG 12/09/2019 12:00:00 AM EST active 1 tablet eCW1 ([facility]) Cyanocobalamin 500 MCG UNK 12/09/2019 12:00:00 AM EST 1.0 {t ablet} suspended Cyanocobalamin 500 MCG eCW1 ([facility]) Methocarbamol 500 MG Oral Tablet Methocarbamol 500 MG 2019 12:00:00 AM EST active 1 tablet eCW1 (Counts include 234 beds at the [facility]) Cyanocobalamin 500 MCG UNK 12/09/2019 12:00:00 AM EST active 1 tablet eCW1 ([facility]) Cyanocobalamin 500 MCG UNK 12/09/2019 12:00:00 AM EST 1.0 {t ablet} active Cyanocobalamin 500 MCG eCW1 ([facility]) Cyanocobalamin 500 MCG UNK 12/09/2019 12:00:00 AM EST 1.0 {t ablet} active Cyanocobalamin 500 MCG eCW1 ([facility]) Cyanocobalamin 500 MCG UNK 12/09/2019 12:00:00 AM EST active 1 tablet eCW1 ([facility]) buspirone hydrochloride 30 MG Oral Tablet BusPIRone HC l 30 MG BusPIRone HCl 30 MG 12/09/2019 12:00:00 AM EST active 1 tablet eCW1 ([facility]) Cyanocobalamin 500 MCG UNK 12/09/2019 12:00:00 AM EST 1.0 {t ablet} active Cyanocobalamin 500 MCG eCW1 ([facility]) buspirone hydrochloride 30 MG Oral Tablet BusPIRone HC l 30 MG BusPIRone HCl 30 MG 12/09/2019 12:00:00 AM EST active 1 tablet eCW1 ([facility]) Cyanocobalamin 500 MCG UNK 12/09/2019 12:00:00 AM EST active 1 tablet eCW1 ([facility]) Methocarbamol 500 MG Oral Tablet Methocarbamol 500 MG 2019 12:00:00 AM EST active 1 tablet eCW1 (Counts include 234 beds at the [facility]) Cyanocobalamin 500 MCG UNK 12/09/2019 12:00:00 AM EST 1.0 {t ablet} active Cyanocobalamin 500 MCG eCW1 ([facility]) Cyanocobalamin 500 MCG UNK 12/09/2019 12:00:00 AM EST 1.0 {t ablet} active Cyanocobalamin 500 MCG eCW1 ([facility]) Cyanocobalamin 500 MCG UNK 12/09/2019 12:00:00 AM EST 1.0 {t ablet} active Cyanocobalamin 500 MCG eCW1 ([facility]) Methocarbamol 750 MG Oral Tablet Methocarbamol 750 MG 2019 12:00:00 AM EST active 1 tablet eCW1 (Counts include 234 beds at the [facility]) Cyanocobalamin 500 MCG UNK 12/09/2019 12:00:00 AM EST 1.0 {t ablet} active Cyanocobalamin 500 MCG eCW1 ([facility]) buspirone hydrochloride 30 MG Oral Tablet BusPIRone HC l 30 MG BusPIRone HCl 30 MG 12/09/2019 12:00:00 AM EST active 1 tablet eCW1 ([facility]) Cyanocobalamin 500 MCG UNK 12/09/2019 12:00:00 AM EST active 1 tablet eCW1 ([facility]) Cyanocobalamin 500 MCG UNK 12/09/2019 12:00:00 AM EST active 1 tablet eCW1 ([facility]) Cyanocobalamin 500 MCG UNK 12/09/2019 12:00:00 AM EST 1.0 {t ablet} suspended Cyanocobalamin 500 MCG eCW1 ([facility]) Methocarbamol 500 MG Oral Tablet Methocarbamol 500 MG 2019 12:00:00 AM EST active 1 tablet eCW1 (Counts include 234 beds at the [facility]) Cyanocobalamin 500 MCG UNK 12/09/2019 12:00:00 AM EST 1.0 {t ablet} active Cyanocobalamin 500 MCG eCW1 ([facility]) Cyanocobalamin 500 MCG UNK 12/09/2019 12:00:00 AM EST 1.0 {t ablet} suspended Cyanocobalamin 500 MCG eCW1 ([facility]) Cyanocobalamin 500 MCG UNK 12/09/2019 12:00:00 AM EST 1.0 {t ablet} active Cyanocobalamin 500 MCG eCW1 ([facility]) Cyanocobalamin 500 MCG UNK 12/09/2019 12:00:00 AM EST active 1 tablet eCW1 ([facility]) buspirone hydrochloride 30 MG Oral Tablet BusPIRone HC l 30 MG BusPIRone HCl 30 MG 12/09/2019 12:00:00 AM EST active 1 tablet eCW1 ([facility]) Cyanocobalamin 500 MCG UNK 12/09/2019 12:00:00 AM EST active 1 tablet eCW1 ([facility]) Cyanocobalamin 500 MCG UNK 12/09/2019 12:00:00 AM EST active 1 tablet eCW1 ([facility]) Methocarbamol 500 MG Oral Tablet Methocarbamol 500 MG 2019 12:00:00 AM EST active 1.5 tablet eCW1 ( [facility]) Oxycodone Hydrochloride 5 MG Oral Tablet oxycodone 5 m g tablet oxycodone 5 mg tablet completed Oxycodone [place] chloride 5 MG Oral Tablet BILLIE ([facility]) Acetaminophen 325 MG / Oxycodone Hydroch loride 7.5 MG Oral Tablet oxycodone- acetaminophen 7.5 mg-325 mg tablet oxycodone-acetaminophen 7.5 mg-325 mg tablet completed Acetam inophen 325 MG / Oxycodone Hydrochloride 7.5 MG Oral Tablet BILLIE ([facility]) Insurance Providers Payer name Policy type / Coverage type Policy ID Covered alliance party ID Covered alliance party's relationship to becerra Policy Ebcerra Plan Information MEDICARE [id number] SP [id number] [id number] SP [id number] [place] [id number] SP [id number] [facility] [id number] SP [id number] [facility] MEDICARE DUAL G [id number] Self [id number] MEDICAID M [id number] Self [id number] [facility]) O [id number] S [id number] MEDICAID M [id number] S [id number] MEDICARE [id number] SP [id number] [id number] [facility] I [id number] Self [id number] [facility] MEDICARE DUAL G [id number] Self [id number] UHC UNITED MEDICARE COMPLETE G [id number] Self [id number] MEDICARE C [id number] S [id number] MEDICAID [id number] SP [id number] [facility] [id number] SP [id number] OTHER1 NOT IN EFFECT SP NOT IN EFFECT [facility] [id number] SP [id number] MEDICARE [id number] SP [id number] A [facility] MEDICARE COMPLETE - O/P [id number] 18 [id number] MEDICAID [id number] SP [id number] [facility] [id number] SP [id number] [facility] [id number] SP [id number] ANSI-Medicaid [id number] ANSI-Commercial 13739b25-g9o2-3433-29xa-[id number] [id number]-i4n5-8819-64uu-[id number] ANSI-Not a Secondary Insurance [id number]-sq57-94603 [id number] [id number]-[id number] ANSI-Commercial jnza9efd-b552-1756-n28j-r1fa42kfgj1v dsoj8jgu-c109-7123-s36z-k9id20wvua9g ANSI-Not a Secondary Insurance [id number]-u837-14a3-q0t5-514vw [id number] h063f4ly-a103-82x0-[id number] ANSI-Medicaid [id number] ANSI-Commercial b1890965-744x-45sq-02l5-97d46f28e48a a0437427-276p-06yk-38h5-41s76x92z02y ANSI-Medicaid [id number] ANSI-Not a Secondary Insurance [id number]-6o0n-1oh4-9q524 [id number]-3c4a-7sj4-6u2323c64sw1 ANSI-Commercial n2ys9y7y-0z6j-4v57-54z5-ic52r58a7m1l u5ky5e9o-1k9n-3y38-47n0-ty82b38o4u5a ANSI-Medicaid [id number] ANSI-Not a Secondary Insurance [id number]-58m3-b068-j7k42 236f5r8 vv0zt713-78aw-52k8-z723-c5k62068p5y6 ANSI-Not a Secondary Insurance [id number]-ztvx-7f281 3892fac 18711q21-0gj5-901q-xypm-1u1356628htg ANSI-Commercial c523b6io-y0g6-3ygh-68gk-5q73qz9hfpg6 j525z0ly-n7j9-2jud-57ce-9v56fn7ywda4 ANSI-Medicaid [id number]-[id number] ANSI-Medicaid [id number] ANSI-Commercial 64602z62-2b40-8k94-01ss-9e4u703drr91 41751x02-2c10-7f08-62pe-7d2r182bgc27 ANSI-Not a Secondary Insurance 00b204vi-5m53-28kw-plj8-8476k 974k5vu 16r030sv-5j23-29nm-qmp4-3381a071b6jy ANSI-Commercial 66e01086-8rj9-76z0-9468-6882i19y827m 67l13019-9kl7-23u4-4177-9706q71q142h ANSI-Medicaid [id number]-irb7-j71glv9127of ANSI-Not a Secondary Insurance 3h7g50d9-6828-9173-4685-592ns 161461l [id number] ANSI-Medicaid [id number]-1178-l092-v0u2cqolk56v ANSI-Not a Secondary Insurance 6s943f79-8758-8e34-0082-f57n3 60sq41k 0c539h56-7351-2b04-4468-r69w593xk70n ANSI-Commercial 240b2173-3y39-89d4-0833-891tbr534749 919d4304-2v50-09w1-2214-802yqt106037 ANSI-Not a Secondary Insurance v67geau8-1n1n-68d6-1068-73972 z974g78 f01blvt7-7p7p-73c2-8938-01179h259q13 ANSI-Commercial 0378z04l-6ov5-00vg-02t4-w3553k93zf79 4184j03k-8zt9-52zr-15u0-k7570c56ot24 ANSI-Medicaid [id number] w54begn3-7s98-53bi-0r5t-v52h555577l9 ANSI-Commercial u51x2534-q771-62ee-471r-3690w848cp39 x84z5673-e981-66ns-163c-1009b023xi54 ANSI-Medicaid [id number]-3100-76t7-[id number] 9z9so0ov-5832-61g5-ivz0-09vd8h019n20 ANSI-Not a Secondary Insurance 701j95h1-3964-295g-x615-090y5 22y557o 025k63v4-7589-965w-a747-161e131a526n ANSI-Medicaid [id number] [id number]-v563-fguj808220jc ANSI-Commercial m183m159-87vb-3000-5cgq-6mq063zo8qgw u900o650-96de-7324-4tkr-3zm867qs0byy ANSI-Not a Secondary Insurance 95691t98-wn46-2o68-o429-0g24w af3v299 15990x30-sa73-2x71-s151-8a49ypv7h048 ANSI-Medicaid [id number]-o60o9d37hx2r ANSI-Not a Secondary Insurance 0h274074-0451-46w4-y262-xbz41 2q9md95 4m157084-6701-31d3-e047-mev101i5ud79 ANSI-Commercial 17tn9u37-629r-14au-569o-cu4yx0viy288 80qr4x83-364v-93ph-189s-hh5lj5paw421 ANSI-Commercial 999n91b3-8v96-3qj6-e080-n73925gp6d2l 422d65j1-4r80-2sp7-x459-r87208qu3s1k ANSI-Not a Secondary Insurance 4ys4ph35-51dt-5t10-mq0b-51a44 i5rvzfl 0xo9cq61-76jk-7h42-uu5z-59s47s6ugxer ANSI-Medicaid [id number]-70bs-[id number] ANSI-Not a Secondary Insurance f4ai4a3q-240q-90oe-8hn7-097xj 371xk21 m5mn1p2y-354u-36rr-7bn2-096wn381xn41 ANSI-Medicaid [id number]-4143-li21-t8a63699qbzu ANSI-Commercial 39098tm3-u876-7329-7900-9079095a7094 01696go0-h152-5651-8527-1456953w6466 ANSI-Medicaid [id number]-4vn2-[id number]-drmm-8sc7-[id number] ANSI-Commercial 7yztka43-i28j-9245-mm30-4vi7iw021221 8mqzlw17-s87o-1919-xz58-9ah8ym766968 ANSI-Not a Secondary Insurance 0zc68q62-3al3-9667-o5r5-ui4j2 7jff6jz 8oa38z63-8gs2-8009-j4s7-lr1w54bav4kq ANSI-Medicaid [id number]-[id number]-51zn-[id number] ANSI-Commercial 7i4w08u8-0xf1-5104-wgj0-4242zg0l119g 8f8g09s0-2ni6-2868-yid6-0259nm5d878z ANSI-Not a Secondary Insurance 27b4hxq4-4m96-2nv2-ik22-n9n43 83757i5 73k3uxq8-7l57-0kn6-lg13-r7z0272530o4 ANSI-Not a Secondary Insurance 257s9k6r-0636-5577-0g5e-gj211 vw041o6 808s7l7f-4609-5308-9r4s-dj638xy382k3 ANSI-Commercial g57t7498-303t-89nv-900f-3ct6im6t447c n77a2429-086k-15jl-712h-4bf8ok7w325c ANSI-Medicaid t8f4000g-8lw2-4ay2-[id number] [id number]-3ut3-6np4-ik15-0593r8x7962c ANSI-Not a Secondary Insurance e984h102-0o6y-6390-i8w4-h55g0 34lx452 a559w122-8i0l-6884-i3k6-h45x731ze154 ANSI-Medicaid [id number]-[id number] [id number]-[id number] ANSI-Commercial z1j43339-0lh9-5149-j803-vu69011p2i2e s2e19092-1mb1-4762-c254-cy12604v4m1v ANSI-Medicaid 6skkiy09-n9k3-07xi-032r-tk56q3j76ll3 0ewnyw87-x3u9-60la-667e-eh08e8f00hb8 ANSI-Not a Secondary Insurance ggusc13p-3134-6230-3a04-3w919 1xn6417 fazhd92u-7321-4260-4i37-5d0528oa5063 ANSI-Commercial 0m3ji787-4u2w-40e4-u127-m6ivl33u12zm 8r7mp205-5d6z-40l6-p533-g7sue32b94fb ANSI-Medicaid 256fp06y-9w1a-73i1-5m2z-[id number] 146qh10x-5o8a-19z5-9s7n-165zi6rp43k4 ANSI-Not a Secondary Insurance m3pe0l09-f144-8825-286v-180o4 u5569ir o6ky8a12-v307-0272-792n-183j2q3044ca ANSI-Commercial 9i265a37-0y10-1570-fx56-p56r9294tjp6 9p000i05-3a29-5940-yy11-h49y5493zhn2 ANSI-Medicaid 2ogfp0ps-0e06-7369-8799-[id number] 0htnk1hd-1e09-9591-9063-[id number] ANSI-Not a Secondary Insurance 226s98o3-pp5y-470k-r82y-2d526 2439p0f 975l35o9-vm2c-601r-n27k-9i1365602b5i ANSI-Commercial j5540739-13qw-1q9w-c29i-03dl1569997w s3699114-44ho-8x4o-u57u-55jg4606411a ANSI-Medicaid [id number]-z59h84ug7fcg c7z62ln7-0zs6-3jg5-2677-o67i30ua3xty ANSI-Commercial gt07w300-00j4-6167-iw96-2jr49t41l646 xw57d450-11d9-3216-po16-2wu08i97c367 ANSI-Not a Secondary Insurance m4844447-8852-6o11-wf6u-46h60 6u34cwo p0809997-0847-9s62-tw0m-07g342w84rhr ANSI-Not a Secondary Insurance jr0t6y2z-639l-0l31-2297-e6962 45k7r4z yx0w8b6b-113m-0p67-4060-a585287n0h3t ANSI-Medicaid [id number]-[id number] p8p857ri-1000-88r8-4k97-o3ao882hh09h ANSI-Commercial 7zm6vec4-7120-18l9-g394-73e8y5tx6905 1qv7ibg8-9426-90f3-g170-21m1t8ti5512 ANSI-Not a Secondary Insurance 43m55tf0-yt5a-8pvo-79ml-5917n 6ew5w1o 94i09jx7-mn4s-8qxq-09hy-0800d9ui8g3p ANSI-Medicaid [id number]-a81d-[id number] [id number]-s49b-e7l2u90o6n3m ANSI-Commercial b052q089-7901-0h86-85yi-47bix070d396 u292r362-8190-2p08-31nv-66ilh675r044 ANSI-Not a Secondary Insurance m9ek2gwp-1en6-85w8-dy00-n43sm a3e69q5 n5gd2qpc-9qa5-72w2-ys13-c57lnv4u24k3 ANSI-Commercial 32fg9s73-6ab5-6534-89o4-g9l258j0a9rg 14ar6j91-3gr9-8424-64o8-c0l385z1q2du ANSI-Medicaid [id number]-sj57-3h1z-41gl-[id number] 9b84tnn4-at54-3t2u-91tj-5kjb658rg82b ANSI-Commercial 35j021bo-2wz7-7698-364l-4262v1624ud3 50v118dr-0tn7-6896-763d-6776i9295kz4 ANSI-Not a Secondary Insurance x16b8t77-8c52-56r0-1333-dkr77 a0d27w6 s75a0c37-5v63-92d6-6021-mtf65j6d02m4 ANSI-Medicaid 668ud4d7-gt11-41g6-2001-[id number] 713ws1d3-hh21-83d9-6301-wd6f1wk327np ANSI-Medicaid [id number]-5n02-[id number] u706h534-8942-4f2s-5z00-pf7b7h424xf4 ANSI-Not a Secondary Insurance g48w233b-bt3m-704t-o0c4-450al 3jv4w2c a83c959w-xo7a-442r-c0d0-982ce0ho3k7c ANSI-Commercial a41o44gk-869f-7228-k854-0362yo24fm3p b76o93gs-795l-6935-r280-0732dx04fo6i ANSI-Medicaid [id number]-0z56-[id number] 5wu1bi45-908r-9t52-mwo6-98d03m161d02 ANSI-Commercial 71797xe9-43fz-27f1-qvs5-1172n5s33404 16591op5-16ex-85p8-fwq4-3675c6u70361 ANSI-Not a Secondary Insurance 8372h829-1p75-329z-8z28-a5c80 ix3c96j 0936z805-2x43-198v-1m10-q9e62qt8b64v ANSI-Medicaid [id number]-b66e-[id number] 2j9855k5-76l2-4xk2-r47g-bd6j90p42p91 ANSI-Not a Secondary Insurance ubp8997o-wz41-5338-93y1-61374 enw06k8 rvc7439t-vi59-5925-37q9-78016qun95q2 ANSI-Commercial th6af816-03e1-360w-5362-97xr5k0u6437 wz7og293-59p7-469v-8142-69us3b1q5684 ANSI-Commercial 2f24e4x5-5a74-491v-6678-15459j6q4640 3b01v8b3-4y22-609b-6547-96580f6n0103 ANSI-Not a Secondary Insurance 38316fiy-4t81-42u5-19l7-w94w8 8fn1qem 57977vfy-5x81-80r0-33q9-j70t33jo4hlq ANSI-Medicaid [id number]-6o92-[id number] he77e906-d10o-3t16-a5wm-x35qh4483w87 ANSI-Commercial 7057mi92-46r9-3224-4376-s89xa58xi7f3 4065qg74-01y2-3509-5269-o87eh98kt6a4 ANSI-Medicaid 501951pe-315r-[id number] [id number]-436q-9237-2049-8x888hf4zypl ANSI-Not a Secondary Insurance 87013414-61m8-32j1-xw96-722f1 h42181y 38213020-65s2-65k0-ft39-498v5q18065w ANSI-Not a Secondary Insurance 3202pkuo-p5gb-10c7z6ai-08u6-27z2-v7z03 jv21td3 8668lqdo-h4al-44v5x6aa-40v3-39j6-j1m39wf80gf7 ANSI-Commercial o6a7v799-60r4-669i-9527-r1442jn4q13s r3z3b191-28r9-371v-6203-q7494jf7w32p ANSI-Medicaid 22v6l2m3-hb15-96a6-80po-w61og7c212p2 10s1l4j5-bf55-84y7-32zp-m70zl5d064f7 ANSI-Medicaid [id number]-uo1p-[id number] 05c72458-mj20-48b5-eu9y-7zo3nv2h335b ANSI-Not a Secondary Insurance o8v49bh2-189h-985l-02cl-h24tj 3v28mb6 c1y45vr4-145s-910o-16cq-p47ub3v34nr9 ANSI-Commercial n2k5965s-085a-0124-tl28-3u9i453x2s81 i7v3148e-400t-6546-di04-5q6j577z5k18 ANSI-Commercial crfpe884-u0s7-68e7-4up9-7iyx01g4w557 pxjai762-a0l3-94f7-9de6-0jxq49o2g199 ANSI-Medicaid [id number]-[id number] 2cd83hf3-42h2-35v7-ea79-05i6h0ebx925 ANSI-Not a Secondary Insurance uk302044-8f4b-7e98-73i6-1b7e3 t8mr81a sg251870-4e7i-7e18-44n8-0v2j5x4ql75t ANSI-Medicaid [id number]-nk97-[id number] 21976915-1211-274l-az02-jb288j9fmaf8 ANSI-Commercial 004p3g34-3d5e-2128-p2na-00mr0cpe6l43 113b4q39-0g9y-9979-q7jc-46ep4qoi2x84 ANSI-Not a Secondary Insurance 9521jkf1-r647-63vd-30e1-i165w 94871vh 3033qob1-c192-31hy-34q4-r291d03968kh ANSI-Not a Secondary Insurance 9byu9iv3-38w0-8os4-k5qw-01u45 t48103n 5uap9vi0-91e9-1ot0-x9em-78y97p86201u ANSI-Medicaid [id number]-[id number] 0j6uy5be-11wy-0j3d-6n5k-[id number] ANSI-Commercial pw49qe69-8877-9qg3-eu86-521t6xb3226b sq19no59-1191-5oo6-ff83-599j7ux8654t ANSI-Medicaid [id number] 356g72m1-304k-58d2-zdpw-04hzm2434xg8 ANSI-Not a Secondary Insurance d8038qb9-d44r-40c4-6021-ondv0 qt6y9ns a4309in7-p02y-89b1-1118-wpbv1ge4y8rw ANSI-Commercial 2d0v456x-s056-9u72-6014-5475yr8jr403 3t8k661m-k694-1m08-0529-7120bu8rg781 ANSI-Medicaid [id number]-b383-24rh-[id number] ANSI-Commercial 1567ix71-92lu-2100-06uv-7s2et6wicj52 7636nv80-35mh-4438-25qg-4z4fl7uzbz56 ANSI-Not a Secondary Insurance y53t92s2-t028-31bs-2413-46003 5131o73 n34s51p4-k966-62ln-6451-439929971h32 ANSI-Not a Secondary Insurance 66zz364h-61v3-8uct-um1h-4e0b6 6509a09 95ac462m-20d5-0qle-oz5p-8d0v58585f92 ANSI-Medicaid [id number]-[id number] ANSI-Commercial l61t4w39-68mu-823k-q0jm-066d72lcqo5w a31d1o23-30yh-234d-m1mh-804q81bsuf7u ANSI-Medicaid [id number]-[id number] 146r18f2-1g60-9ko0-o35x-6423b295u43v ANSI-Commercial 9w511v9b-1024-5z4a-28u7-io9y6086kki3 1p238w6s-3614-2l2d-48k9-md9n2727deq8 ANSI-Not a Secondary Insurance 77n2c8rc-6a9v-0861-ce96-3146c 3w24p00 17m0c4cq-6a6z-8594-uz50-1996g3q49t71 ANSI-Not a Secondary Insurance j2t9c32s-4057-2516-38m5-45eux itb47k2 l6v7e29b-2237-7669-09t3-84bvmtvs79n1 ANSI-Commercial 62h74jj2-ekrl-84f5-j4a8-q8zq3l1iq100 60q65ci8-cuvh-08q0-w2r1-x5jk2q6te426 ANSI-Medicaid [id number] ANSI-Commercial 38z29ygi-64u0-3u99-8678-j1q4t31j55ca 12u21ezx-14c2-1m55-2512-b0z2p56v39lu ANSI-Medicaid [id number]-[id number] ANSI-Not a Secondary Insurance k6x965l6-427h-355y-p0u7-ffo44 d26160c c6k581v2-627i-196c-i8c7-liv68f67990n ANSI-Not a Secondary Insurance 661hu735-14o8-0u60-2q8z-464f8 b42z80s 195bt628-68n6-3g03-7a9q-062x8i74t48u ANSI-Commercial r14m82t2-z2rb-2i88-m386-29i6c51lhzcv z93t77w7-j7zg-0c03-h208-89s0r78omwtk ANSI-Medicaid [id number]-442z-[id number] ANSI-Medicaid [id number]-[id number] ANSI-Not a Secondary Insurance q0vnen69-30vv-2y2f-h218-j22b0 q3b05ao h6injj69-14gw-9p3q-c479-w89t2j2b78oz ANSI-Commercial 1v5onys1-b0cp-410y-4i0a-6750mqm056u4 0l9kafr2-h4oa-008n-7g9b-7972uhl639j8 ANSI-Medicaid [id number]-70sw-l727-60s8ft1h5am4 ANSI-Not a Secondary Insurance 79qk5655-55q0-26y0-83e8-q06er 217f594 89ze7430-21v2-14k2-04e2-w46uo329v754 ANSI-Commercial aw2u4220-i500-57w0-154p-4572j6jg4551 xp9c9104-k928-84g2-164z-6494r5yb1143 ANSI-Medicaid [id number] g31gotb1-m79j-[id number] ANSI-Commercial 60y669r6-711n-31a3-03or-8sc3of4u7d8t 67b275c8-676q-93p1-85lw-6kf5mu0m4z2k ANSI-Not a Secondary Insurance g91322e5-2171-5865-924l-94p75 o03h0tx c95005i4-4886-2560-117w-33r46u72u6ke ANSI-Commercial z5913354-abvx-4d27-64w5-7qt53o781l67 g1694319-vvir-2v62-50o2-3am79c418h29 ANSI-Not a Secondary Insurance 5d5733x5-1691-83o1-4p11-4z125 x5i91sz 8o3643i1-4667-95y1-4k11-4f675s5i35wf ANSI-Medicaid [id number]-[id number]-[id number] 4ezca1zl-2ies-7e37-7367-[id number] ANSI-Commercial 24n7x2i1-f2ao-7196-21l2-2849qwo71u1s 34y8h5e9-a6fg-4442-21l4-5048eka28o5r ANSI-Medicaid [id number]-[id number] [id number]-eu2c-7i9u-1261-8543gkh0w734 ANSI-Not a Secondary Insurance 9n745uz5-8ehd-2f71-am7o-83y53 9v8k36e 9l075ly0-3zqt-1r29-ul2a-65g039f5t52d ANSI-Commercial 0n7w6v9g-j13l-78al-7946-41cy3841b1q9 8d0q8p2v-n07t-95fd-1467-70la2791a9g5 ANSI-Medicaid [id number]-[id number] ANSI-Not a Secondary Insurance wc76sv25-0433-44w9-93rz-32493 udq0441 sv45wz96-0854-92w4-63xv-33503eau5559 ANSI-Commercial 7xwu355t-im8l-80fe-2258-2j36512vm50d 8ahe493l-sa7l-04ve-9960-3v27358th43t ANSI-Medicaid [id number]-s194-7820-gx57-i6p0l1qc4ik7 ANSI-Not a Secondary Insurance s12b3766-5dg0-1f14-9772-q6g2d l4z0ho6 h23j3283-3rc0-6h93-4909-i0i2tg2j4to7 ANSI-Commercial ncj01ly1-66j1-66v1-m704-87564u10v1z9 ibg59fo9-69k7-08a9-f333-07322j81f9m8 ANSI-Not a Secondary Insurance v6uum8v9-x4fc-5b69-4sc6-g971h 0o6x7ox f7tqn2l8-v9za-0d91-8bx3-p001z1x0y3wo ANSI-Medicaid [id number] ANSI-Medicaid [id number]-79l0-zh50-0hb1i1e5h236 ANSI-Commercial cu958i0q-7d19-8521-7k96-96h7q0167eb3 sw601z6b-2k82-3075-9d86-88r6z0878kr3 ANSI-Not a Secondary Insurance 2yfe98t9-t022-3562-ip51-b8fz3 h2s2441 8tsm23h1-t024-3767-tq95-g9br5j6y1355 ANSI-Medicaid [id number]-iug2-[id number] ANSI-Not a Secondary Insurance 26tycb61-5n02-609c-6v3c-50n0h 1zq41s8 86utor25-1u33-134x-0t8v-16f6o2oz06u1 ANSI-Commercial v630662f-9689-3xa1-381r-650mls52eh2s g158028l-9327-7mu8-537z-943dpm16mj4s ANSI-Not a Secondary Insurance 9rfv578q-10z7-0po6-gqx8-33s81 p864ykj 1ruf862x-75r8-4sa4-jqb0-48n50d523xvm ANSI-Commercial 76kps631-3lo0-928g-1169-847uw9454k7c 75ifg737-3gm7-063e-5509-331ud7803y2a ANSI-Medicaid [id number]-[id number] ee6i9i77-416c-6800-1y49-h0c08v7q4o3h ANSI-Medicaid [id number]-y2ys-2727-s225-2ka39l1982a6 ANSI-Not a Secondary Insurance p8tqzb83-v861-3086-vfss-v4v45 0e85ca5 t9lsvj45-w618-1024-myuo-u5t421b51jd7 ANSI-Commercial g3150900-ilmr-657r-62r4-y09n96o0815g e6915510-gyxa-259l-67f0-s83c70q3383j ANSI-Medicaid [id number]-75v1-5740y6871l8g ANSI-Commercial 62t4udt0-6o97-2035-gp21-567di3v0448p 79a9qum7-7m97-2722-tf04-406uo5q2642e ANSI-Not a Secondary Insurance 857o07b6-97k1-5d3h-z0m0-m7z12 455230i 410q72o4-78p4-8z6x-s9i4-l5q44508225r ANSI-Not a Secondary Insurance 594xok8y-2702-8sv8-ez7p-jtu79 07v7337 628ora9e-7994-1ye8-yg0a-ywr1859l4553 ANSI-Medicaid [id number] 88tz9q93-757r-984e-6m02-x5n2b52j0025 ANSI-Commercial r4385ri5-t58i-2ho3-3x85-74867ba37q58 o8505oa4-q04l-7su0-5j32-88955au95s57 ANSI-Medicaid [id number]-[id number]-9838-41yj-u07p-[id number] ANSI-Commercial v88816c4-m916-6959-e7nz-6094407g652r f71062b0-w657-1330-g4ti-3580419j638z ANSI-Not a Secondary Insurance vl15dadx-571k-8k59-yha1-x2fur q7s1aj2 oq69fjcn-545b-1w58-ahl3-y2bafs3h5ej3 ANSI-Medicaid [id number]-8zqj-[id number] ANSI-Not a Secondary Insurance 1734rc48-aj9j-49s4-idn3-0u53s eh92363 5885rz03-lq5m-81l4-fdd0-1y30cjj06065 ANSI-Commercial nm2xd9wg-2x47-6889-2pbb-13wr67p1f335 fl8sx8vi-6m58-8260-4nih-59sq98o7p306 ANSI-Commercial n2243r84-7pj5-9615-n5hi-74xb5f08063x r2421j50-5ti3-2326-u7lc-09vs0w37989m ANSI-Medicaid [id number]-vp9n-[id number] ANSI-Not a Secondary Insurance 9036z4s1-6wav-1cs2-16f1-6yq20 01481u8 2267r2p8-5jxu-8uw4-72g9-7vf4340341b1 ANSI-Medicaid [id number]-22iv-4pig-6a2j-[id number] ue13893e-91vc-4qyt-5r4x-p3050bgfg1ks ANSI-Commercial 80o0881p-7839-3q7j-060s-6pz37up8p232 76c2832w-4164-6p2x-806l-3mt21wd9v981 ANSI-Not a Secondary Insurance 0744ak26-836q-31k3-2b71-3hjz5 ejg1892 5414hd37-988e-61d0-3r14-5zhk7rwy4030 ANSI-Medicaid [id number]-[id number] n69g92d0-s0o9-4644-ujr5-564vy947uz39 ANSI-Not a Secondary Insurance a514cu5x-dd30-56ss-z08k-845x2 b684425 a826yb8z-ux00-13lf-r48b-306v0u696618 ANSI-Commercial 34i8f30t-g2eq-73e7-w965-1s935mry76y1 84m3q53i-r8lu-49s7-e009-4x726oaf92k8 ANSI-Commercial 39211w3h-2045-8l9k-29e0-90uhmw86na4z 46480y1r-9364-6r1t-54m0-30vjfq80ix1k ANSI-Not a Secondary Insurance 89ard736-xh68-4fj4-3532-783oe 357ht18 00svx562-rk65-7pa0-7617-962uy650nq97 ANSI-Medicaid [id number]-[id number]-n3f1-[id number] 7025h40p-09nx-3k3f-v3b7-gp2o0z3j1w01 ANSI-Commercial 0s3fs777-03xu-1051-ru83-8d8d37q1s774 7d2th208-51cy-6904-sp57-6f8i60f3h084 ANSI-Medicaid [id number]-mc19-28z5-1d72-8u16i585u6z5 ANSI-Not a Secondary Insurance w09wi8g6-1370-3cs5-41ya-2197u t1z393l y26gz5o0-5064-2lo0-56ng-1745ms3d768b ANSI-Commercial 2cce3446-p17o-8164-429k-6391n3kbr7a5 7gaw5121-a32a-7067-777g-8142o3bws7n0 ANSI-Medicaid [id number]-220h-992m-88he-[id number] [id number]-228d-608x-88ad-k1g3ej868b0n ANSI-Not a Secondary Insurance cm4lxgd5-c13g-3u00-u17k-8145r 7h94217 xa0rshf3-q59z-3b29-x91w-7526f0h57704 ANSI-Medicaid [id number]-zur6-[id number] [id number]-bot4-p3sk6xqo4x40 ANSI-Commercial t08062qz-3h01-9548-mw58-p4e367v12xa6 m52024yx-7r92-3493-lv10-n7f614y20im9 ANSI-Not a Secondary Insurance a62zk034-2z1z-91ca-ll26-30566 w7p287l p98wm605-1j9n-16hb-af03-55667j0b915b ANSI-Medicaid [id number]-[id number] [id number]-[id number] ANSI-Commercial 6905qn61-y36m-7ub2-qzmi-lga2e8y660ww 7381xe30-o39o-3oj0-veri-big8u9c532eb ANSI-Not a Secondary Insurance r35099r5-kdb2-27u8-r283-q78e4 jmc4e90 f07645m1-quo2-68o8-z769-h72h4orx1f83 ANSI-Medicaid [id number]-[id number] ANSI-Not a Secondary Insurance 2a960k55-8940-6500-5580-166p6 8i7i73o 3w632u15-7814-7706-7468-499y11e8q44f ANSI-Commercial 4d388k70-hr4a-0t09-eb92-ezq45r2b56gf 4t000n99-cc7x-5q51-uo14-seo73z9n66wc ANSI-Not a Secondary Insurance 75j2261k-26mo-4342-qh51-899w9 w0135m8 19f7209x-23te-3532-yl21-579s4y3470w2 ANSI-Commercial 8813772q-96l4-0r2r-8970-4m028z4b9n9j 3301604o-87g8-8x2p-7569-9m920y1n2w4e ANSI-Medicaid [id number]-[id number]-cs7p-[id number] ANSI-Commercial 94481vh0-kbr3-09p0-k06e-1t3251r44703 47996ip4-iaz3-97u9-v57a-3k1542q11514 ANSI-Medicaid [id number]-4llr-[id number] 1933b60c-335o-2box-53u8-29h8b49j79ax ANSI-Not a Secondary Insurance mz0u0258-f27y-42r8-80ra-8e1l8 0x436v2 ku1f6219-y91q-33d2-37rs-0o6h59v171y3 ANSI-Not a Secondary Insurance 592v96o2-5wo0-3b76-uc63-7p50p eg41544 375h73a9-9fy6-9b21-mb21-6x11bfr73874 ANSI-Medicaid [id number] ANSI-Commercial 243bx682-27o8-5101-pq0w-1489p3j982j5 157vo316-84o6-0851-bj6h-6846k6w404o7 ANSI-Commercial 40bs4po6-h7i6-346p-6p1o-9at467d6vmrv 27rz7xx1-y7f1-111k-9f8t-4uv218e1hiui ANSI-Medicaid [id number]-[id number]-[id number] ya2d7kde-x20j-36o7-409g-[id number] ANSI-Not a Secondary Insurance [id number]-j339e a9s807v 89285d06-0x46-1858-0c32-f970pe7d805j ANSI-Commercial i7n96068-j2i6-68kq-9k87-195f8707s8g7 f0z33902-z4q8-09zl-3v78-767s6604k2y8 ANSI-Not a Secondary Insurance 8242c177-d353-32sy-3v4s-kyyf9 9jz9iai 8718c889-a100-91ty-7y2w-sjos70qu6yii ANSI-Medicaid [id number]-la72-4zsw-[id number] ANSI-Not a Secondary Insurance 332594i9-48w2-5384-s34t-mmk38 t93797a 857476o8-07r6-9935-r11z-xlt29m87600l ANSI-Commercial q35u71p6-bl7c-908n-lt5a-96a86g04r07f n24d35i9-hc3o-613s-bt3z-63i21o14b55h ANSI-Medicaid [id number]-[id number]-[id number] ANSI-Commercial f831p4g9-2vpk-77s8-nq67-38jgaa924w2w p324b0k6-6rri-36l1-mx54-51bdri698c9x ANSI-Medicaid [id number]-zi6z-[id number] 8678l8pk-q1c7-5896-bf8z-46yss1u726ou ANSI-Not a Secondary Insurance 0u1056c2-504n-2776-i1q6-o749l h79ict6 7j6082b9-172u-3121-h1p4-n955ts36fnh3 ANSI-Commercial gzi6e7l5-89s1-02m3-9040-98a7p0ryz69z whz9e9o5-59g7-51r2-2977-53f9e9znd97i ANSI-Not a Secondary Insurance svlj0i30-19p9-7m2q-ery9-j4a5v 6280n8a azhi2r07-60i4-6o6m-uew5-m8o0f8885q0y ANSI-Medicaid [id number]-[id number]-4j37-k760-d9ywgjg0cs40 ANSI-Not a Secondary Insurance r9578o77-1811-74vn-r78b-1s389 54884u0 m0555h81-2912-39pr-n65s-3m01799111u2 ANSI-Commercial d90er8x7-tr94-02nr-2h0y-269466e9307o m92gf1z5-iv42-99te-9e5w-259372j9722u ANSI-Medicaid [id number]-rnn4-20o7-zj26-f5ikz7w57r71 ANSI-Not a Secondary Insurance 5gk3698a-v512-7p1b-t46r-ezu84 op95959 3pq3608x-i397-0j7n-n58v-hlq01og81013 ANSI-Commercial wom3hcv3-5b5d-2a5n-015k-spl94778a7a2 [id number]-4y9t-387f-[id number] ANSI-Medicaid [id number] ANSI-Not a Secondary Insurance [id number]-[id number] [id number]-lm6b-4i4v-[id number] ANSI-Medicaid [id number] ANSI-Commercial [id number]-[id number] 81i27v52-96o5-8232-978o-[id number] ANSI-Medicaid [id number] ANSI-Commercial p721rtcy-cu85-79z9-7h35-[id number] o367ybav-pj03-18n4-4f16-[id number] ANSI-Not a Secondary Insurance [id number]-nug76 wh30x5q [id number]-[id number] ANSI-Medicaid [id number] ANSI-Commercial 463yzyx8-8207-6069-t33p-18bhbl900p32 274jvox7-7677-2234-t44f-83albw444x95 ANSI-Not a Secondary Insurance [id number]-3160-2n2l-78z6r [id number] [id number]-273c-2699-2o1r-[id number] ANSI-Medicaid [id number] ANSI-Not a Secondary Insurance [id number] [id number]-[id number] ANSI-Commercial u33v8n72-m4j3-62c1-w17h-[id number] s18h4b07-x5h7-17m1-o80g-[id number] ANSI-Commercial 69pb6414-1320-79ic-94pi-65mk33f907k5 11bf2657-9537-48px-79zk-10he13p817d6 ANSI-Not a Secondary Insurance ai6efcu6-w836-4tpv-9507-9v71l 1860u18 hv3qafn1-y247-7rct-[id number] ANSI-Medicaid [id number] ANSI-Medicaid [id number] ANSI-Not a Secondary Insurance [id number]-9035-m2xp-e231f [id number] [id number]-l01j-9598-r8gj-[id number] ANSI-Commercial 62wtfgvz-3o58-686d3b28-470i-2o4e-72642vdbmo88 51cmvvft-8g68-065w6f32-593j-3b4m-66915hcjww81 ANSI-Commercial pb7lqp79-pn7t-0pij-z598-wq124i8972pk mw0sbm47-td0w-8pva-y721-cg492k5008bu ANSI-Not a Secondary Insurance [id number]-rcj2-zp0u0 8od597a 2787x608-6788-5317-cst4-sb1f21yb794w ANSI-Medicaid [id number] ANSI-Commercial [id number]-85h4-49pf-[id number] [id number]-90a9-85ht-0c1t926aw357 ANSI-Not a Secondary Insurance 54tshp6h-x7c3-9v58-ff8r-kl4w9 x687zvw 30wtgg7m-a6z8-7h52-zg5w-zc5f5s138qck ANSI-Medicaid [id number] ANSI-Medicaid [id number] ANSI-Commercial zib9bb80-1952-935d-wu35-ka23qw3r50z7 jcc6wg49-8171-233m-fv64-xj80jj1x60t5 ANSI-Not a Secondary Insurance h30255pz-338r-2a3x-p1fg-6eklm v1eg90s v67258wt-711q-5t0o-m0ep-8vnkjr7je24s ANSI-Commercial 8jg55zx2-tt34-5p21-j551-9b35208vx228 9rs16kh6-yk81-0h34-b793-2o60410tn215 ANSI-Not a Secondary Insurance 444dz520-k79x-7059-a7z7-67438 5000mn3 114ng360-x87c-6014-j9c0-547606409lq6 ANSI-Medicaid [id number] ANSI-Not a Secondary Insurance 0lwfl8u5-4421-38ni-977a-o48g4 [id number] 1zoec6l2-5653-38ul-826t-a01y8i28nq8i ANSI-Medicaid [id number] ANSI-Commercial [id number]-cl6y-19it-k617-5j3711t767fb 8js5q158-di6b-58bk-h147-2h5987o075fb [facility] ([facility] Commercial [id number] Self [id number] Medicaid [place] [facility] Part B [id number] Self [id number] ANSI-Commercial [id number]-3179-723b-[id number] ANSI-Not a Secondary Insurance [id number]-[id number] [id number] xhi1d7q6-3361-01if-[id number] ANSI-Medicaid [id number] ANSI-Not a Secondary Insurance [id number]-94mc-63w2-[id number] 48ikf24 [id number]-90nm-19b0-[id number] ANSI-Medicaid [id number] ANSI-Commercial h874h4ei-7ig1-4770-13dc-nh33767ei5f6 d078i9gu-1sp8-7174-65vr-cl16756xd5s0 ANSI-Not a Secondary Insurance [id number]-17pq-3114-sy0v4 32eow04 hiz6u198-7z1y-52sa-5407-xi9l171fmq76 ANSI-Medicaid [id number] ANSI-Commercial [id number]-c29z-[id number] 7d555565-48w3-9025-s48h-[id number] ANSI-Not a Secondary Insurance [id number]-g50u-029h-7gu2-024q1 [id number] g928y0d1-z31t-523e-[id number] ANSI-Commercial mi39t9jx-98xf-8699-42tm-646061e7d6f7 gx53m4sc-03ut-8788-50yn-063219f9m6h4 ANSI-Medicaid [id number] ANSI-Not a Secondary Insurance [id number]-x2x0-81e0-03i2-4x75u [id number] x1s3840a-v6k0-90f0-75f0-6r09p4x179z1 ANSI-Commercial 95s52h9g-4d77-7h57-t8zz-[id number] 40u84v6m-9p56-6q00-o1rp-[id number] ANSI-Medicaid [id number] MEDICAID [id number] SP [id number] [facility] [id number] SP [id number] ANSI-Medicaid [id number] ANSI-Not a Secondary Insurance [id number]-ob7l-25q95 [id number]-ea2w-[id number] ANSI-Commercial 2xg4r042-6819-16e8-w3o5-wug206q7a6g8 0eb6o037-0251-27z7-x7g9-hbg643b1z7f8 ANSI-Medicaid [id number] ANSI-Commercial 534ti4zu-8785-4p9j-3ru9-d57rm4n6937w 032rz2zi-8886-2e1k-5ys6-e10un5b0164c ANSI-Not a Secondary Insurance [id number]-3678-658x-05y99 8yj3b84 8xhol156-53ui-6793-834e-42p187bl2c31 ANSI-Medicaid [id number] ANSI-Not a Secondary Insurance [id number]-3ydg-017t-ud0w-1ba38 f5e8m63 6s4r189r-2hdq-998x-it2i-8ax80x3s3m77 ANSI-Commercial 474b709g-[id number] 590e270u-[id number] ANSI-Medicaid [id number] ANSI-Not a Secondary Insurance [id number]-5j7b-363d9 [id number] 32tm5497-5721-2v8t-0v4e-[id number] ANSI-Commercial z38k753w-x440-9qu3-4912-14zq419s76u0 w32h883v-h996-0oi9-1729-61rc703t31j8 [facility] Commercial [id number] [facility] [id number] ANSI-Medicaid [id number] ANSI-Not a Secondary Insurance [id number]-00vk-d6h6-1md50 9kl691n [id number]-94ic-v0q6-7ef119he960t ANSI-Commercial p08hg8z9-05b8-4209-7s9d-[id number] h42yb1h2-33e7-6290-4n2d-6563706xn178 ANSI-Medicaid [id number] ANSI-Commercial 431ycz46-7b7e-09w9-v827-co7ma0erlph6 436ela11-0j4t-61r4-s746-oh2hi7uxobs0 ANSI-Not a Secondary Insurance [id number]-5pj8-243c-j80b-8r5w2 72vs10s 609438zx-3wf4-806d-m28t-6w0q988cn59v ANSI-Not a Secondary Insurance 22imx76t-527o-46kc-l6y8-12l16 759qh27 02tgb16q-199t-71th-[id number] ANSI-Medicaid [id number] ANSI-Commercial 3f1ie32a-5qv4-8891-hrl6-j25eg457p8f7 0e1dx43n-7sr4-3719-bpp8-j56xb282v4l7 ANSI-Not a Secondary Insurance 9glxoyz5-g2ue-3c0e-o795-7tl7j pm72s4y 7cokpew5-e4od-8y8l-k695-5gu3lrf07p4s ANSI-Commercial i52b4j3r-p18w-81c1-7az1-v4v11ov3c5lv r09w7i0f-m66t-19k9-8eg9-c9m88jc8k9qf ANSI-Medicaid [id number]-[id number] ANSI-Not a Secondary Insurance [id number]-7w80-mg91-5d4d9 08z3z5z 1yvc8w14-7e6r-9p02-ld83-0f0o994j9c0h ANSI-Medicaid [id number] ANSI-Commercial [id number]-0612-[id number] [id number]-3269-[id number] ANSI-Not a Secondary Insurance [id number]-[id number]-2813-x0x1-7ek45 [id number]-sm0f-6354-[id number] ANSI-Medicaid [id number] ANSI-Commercial [id number]-[id number]-[id number] ANSI-Not a Secondary Insurance [id number]-1436-yt7vj [id number]-zz38-0yjs-6730-[id number] ANSI-Medicaid [id number] ANSI-Commercial hjvqg30i-x76u-[id number] owerl31t-x66s-[id number] [facility] ([facility]) Commercial [id number] Self [id number] [facility] ([facility]) Commercial [id number] Self [id number] [facility] ([facility]) Commercial [id number] Self [id number] MEDICARE [id number] SP [id number] A MEDICAID [id number] Maria Guadalupe [id number] [facility] MEDICARE [id number] Maria Guadalupe [id number] MEDICAID UNAVAILABLE [place] BLE MEDICARE COMPLETE-[facility] O [id number] S [id number] [facility] MEDICAID DUAL I [id number] Self [id number] [facility] MEDICARE COMPLETE G [id number] Self [id number] MEDICARE COMPLETE [id number] SP [id number] SELF PAY [id number] SP [id number] [facility] [id number] SP [id number] OTHER WORKERS COMPENSATION NOT IN EFFECT FOR TODAYS VISIT SP NOT IN EFFECT FOR TODAYS VISIT OTHER1 WORK COMP NOT IN EFFECT FOR TODAYS VISIT SP NOT IN EFFECT FOR TODAYS VISIT MEDICARE P [id number] S [id number] A [facility]D P [id number] S [id number] OTHER WORKERS COMPENSATION DOES NOT APPLY THIS VIST SP DOES NOT APPLY THIS VIST MEDICARE [id number] SP [id number] A [id number] A [id number] Problems, Conditions, and Diagnoses Code Display Name Description Problem Type Effective Dates Data Source(s) G47.00 58757373 Insomnia disorder with non-sleep disorder mental comorbidity Problem 12/13/2020 12:00:00 AM EST eCW1 ([facility]) K72.90 [id number] End stage liver disease Problem 10/25/2020 1 2:00:00 AM EST eCW1 ([facility]) D50.9 14200527 Iron deficiency anemia, unspecif ied iron deficiency anemia type Problem 04/12/2020 12:00:00 AM EDT eCW1 ([facility]) D50.9 48784655 Iron deficiency anemia, unspecif ied iron deficiency anemia type Problem 04/12/2020 12:00:00 AM EDT eCW1 ([facility]) R18.8 416779853 Other ascites Problem 01/21/2020 12:00:00 AM EDT eCW1 ([facility]) R18.8 [id number] Other ascites Problem 01/21/2020 12:00:00 AM EDT eCW1 ([facility]) I50.32 042142885 Chronic diastolic congestive heart failur e Problem 01/19/2020 12:00:00 AM EDT eCW1 ([facility]) I50.32 931572993 Chronic diastolic congestive heart failur e Problem 01/19/2020 12:00:00 AM EDT eCW1 ([facility]) M48.02 Spinal stenosis, cervical region Spinal stenosis , cervical region Diagnosis 12/23/2020 11:06:42 AM [facility] S22.089A Unspecified fracture of T11- T12 vertebra, initial encounter for closed fracture Unspecified fracture of t11-T12 vertebra , initial encounter for closed fracture Diagnosis 12/23/2020 10:56:57 AM [facility] G95.9 Disease of spinal cord, unspecified Disease of s nathalie cord, unspecified Diagnosis 08/30/2020 03:12:06 PM [facility] R20.2 Paresthesia of skin Paresthesia of skin Diagnosis 1 01:33:54 PM [facility] R20.0 Anesthesia of skin Anesthesia of skin Diagnosis 01:33:54 PM [facility] Surgeries/Procedures Procedure Description Date Indications Data Source(s) Immunization: Flublok Quadrivalent (18 years & older) 0.5mL IM (Influenza) 10/20/2020 12:00:00 AM EST [facility] ([facility]) Office Visit, Est Pt., Level 4 PC 03/15/2020 12:00:00 AM EDT eC1 ([facility]) Annual wellness visit, includes a person alized prevention plan of service (pps), subsequent visit 03/15/2020 12:00:00 AM EDT eC 1 ([facility]) Office Visit, Est Pt., Level 2 FC 02/17/2020 12:00:00 AM EDT eCW1 ([facility]) TRANS CARE MGMT 14 DAY DISCH 02/08/2020 12:00:00 AM ED T eCW1 ([facility]) Office Visit, Est Pt., Level 3 PC 01/12/2020 12:00:00 AM EST eCW1 ([facility]) RhoGAM 300mcg/1.5mL (Rho [D] Immune Globulin Human) 12/17/2019 12:00:00 AM EST eCW1 ([facility]) Results ID Date Data Source [id number] 01/02/2021 07:34:28 AM EST [facility] Name Value Range Interpretation Code Description Data Sharonda rce(s) Supporting Document(s) Progress Note [facility] WRWDTu9uZzTDHlFr13/JBBlzJYTqg1NvPOiaQFp5JRyoCMVcC5HaNGQ5yO8zMYK1CIbAIbVnByJgGvDj lbm [file] YwCZP5MUX7KxHvInB1POWnHGJ8CAV8Za0gYCXRVi3+DCghpDQwjZvoGYHZXxDhAaIvZJszDILGKo7M ID Date Data Source [id number] 12/28/2020 08:14:30 AM [facility] XR SPINE LUMBAR 4-MORE VIEWS [id number] RESULTInterpreted by:BRUNO Araujo SPINECLINICAL STATEMENT: Status post lumbar fusion. Low back pain.TECHNIQUE: AP, flexion-extension, and neutral lateral views of the lumbar spine.COMPARISON: 04/20/2019.FINDINGS:Since the prior study, there has been no significant interval change. The patient is again noted to be status post lumbar fusion at L4-L5. Bilateral pedicle screws with interconnecting rods appear intact and well aligned. There is persistent grade 1 anterolisthesis at L4-L5, stable on flexion extension views. Otherwise, normal vertebral body heights are preserved.Moderate degenerative disc space narrowing is noted at L5- S1. The remaining intervertebral disc spaces appear unremarkable.IMPRESSION: Since 04/20/2019,No significant interval change. Status post lumbar fusion at L4- L5, with stable postoperative changes.This document has been electronically signed by Dony Raman MD on 12/28/2020 8:12 AM Name Value Range Interpretation Code Description Data Sharonda rce(s) Supporting Document(s) ID Date Data Source [id number] 12/27/2020 04:24:33 PM EST [facility] XR SPINE CERV 4 OR MORE VIEWS [id number] RESULTInterpreted by:Dony Raman [facility] SPINECLINICAL STATEMENT: Status post spinal fusion. Neck pain.TECHNIQUE: AP, flexion-extension, and neutral lateral views of the cervical spine.COMPARISON: 08/01/2020.FINDINGS:Since the prior study, there has been no significant interval change. The patient is again noted to be status post anterior cervical discectomy and fusion at C4-C6. A ventral fixation plate with interlocking screws appear intact and aligned.Normal anatomic alignment is maintained. Normal vertebral body heights are preserved. The prevertebral soft tissues are within normal limits.Otherwise, the remaining intervertebral disc spaces are preserved.IMPRESSION: Since 08/01/2020,No significant interval change. Status post ACDF at C4-C6, with stable postoperative changes. This document has been electronically signed by Dony Raman MD on 12/27/2020 4:22 PM Name Value Range Interpretation Code Description Data Sharonda rce(s) Supporting Document(s) ID Date Data Source [id number] 12/26/2020 09:00:00 AM EST [facility] Name Value Range Interpretation Code Description Data Sharonda rce(s) Supporting Document(s) SARS coronavirus 2 RNA Not Detected [facility] [place] This lab was ordered by [facility] and reported by [facility]. ID Date Data Source [id number] 12/19/2020 06:33:00 AM EST [facility] Name Value Range Interpretation Code Description Data Sharonda rce(s) Supporting Document(s) SARS coronavirus 2 RNA Not Detected [facility] [place] This lab was ordered by [facility] and reported by [facility]. ID Date Data Source [id number] 12/12/2020 08:00:00 AM EST [facility] Name Value Range Interpretation Code Description Data Sharonda rce(s) Supporting Document(s) SARS coronavirus 2 RNA Not Detected [facility] [place] This lab was ordered by [facility] and reported by [facility]. ID Date Data Source [id number] 12/05/2020 08:00:00 AM EST [facility] Name Value Range Interpretation Code Description Data Sharonda rce(s) Supporting Document(s) SARS coronavirus 2 RNA Not Detected [facility] [place] This lab was ordered by [facility] and reported by [facility]. ID Date Data Source [id number] 11/28/2020 12:00:00 PM EST [facility] Name Value Range Interpretation Code Description Data Sharonda rce(s) Supporting Document(s) SARS coronavirus 2 RNA Not Detected [facility] [place] This lab was ordered by [facility] and reported by [facility]. ID Date Data Source [id number] 11/21/2020 06:00:00 AM EST [facility] Name Value Range Interpretation Code Description Data Sharonda rce(s) Supporting Document(s) SARS coronavirus 2 RNA Not Detected [facility] [place] This lab was ordered by [facility] and reported by [facility]. ID Date Data Source [id number] 11/14/2020 07:30:00 AM EST [facility] Name Value Range Interpretation Code Description Data Sharonda rce(s) Supporting Document(s) SARS coronavirus 2 RNA Not Detected [facility] [place] This lab was ordered by [facility] and reported by [facility]. ID Date Data Source [id number] 11/07/2020 08:05:00 AM EST [facility] Name Value Range Interpretation Code Description Data Sharonda rce(s) Supporting Document(s) SARS coronavirus 2 RNA [facility] This lab was ordered by [facility] and reported by [facility]. ID Date Data Source [id number] 10/31/2020 09:00:00 AM EST [facility] Name Value Range Interpretation Code Description Data Sharonda rce(s) Supporting Document(s) SARS coronavirus 2 RNA [facility] This lab was ordered by [facility] and reported by [facility]. ID Date Data Source [id number] 10/26/2020 12:23:00 PM EST [facility] Name Value Range Interpretation Code Description Data Sharonda rce(s) Supporting Document(s) SARS coronavirus 2 RNA [facility] This lab was ordered by [facility] and reported by [facility]. ID Date Data Source MURDE 10/26/2020 12:00:00 AM EST [facility] Name Value Range Interpretation Code Description Data Sharonda rce(s) Supporting Document(s) SARS-CoV2 Rapid Antigen [facility] This lab was ordered by [facility] and reported by [facility]. ID Date Data Source [id number] 10/21/2020 01:19:00 PM EST [facility] Name Value Range Interpretation Code Description Data Sharonda rce(s) Supporting Document(s) SARS coronavirus 2 RNA [facility] This lab was ordered by [facility] and reported by [facility]. ID Date Data Source ЕЛЕНА Foster [id number] 10/20/2020 12:00:00 AM EST eCW1 ([facility]) Name Value Range Interpretation Code Description Data Sharonda rce(s) Supporting Document(s) 0.70 0.00-0.21 eCW1 ([facility]) 0.51 0.00-0.30 eCW1 ([facility]) . eCW1 ([facility]) 62 . eCW1 ([facility]) . eCW1 ([facility]) . eCW1 ([facility]) 0.75 0.25 eCW1 ([facility]) 39 33-346 eCW1 ([facility]) 337 110-276 eCW1 ([facility]) 200 . eCW1 ([facility]) 128 116-209 eCW1 ([facility]) 32 0-40 eCW1 ([facility]) 47 0-60 eCW1 ([facility]) 0.5 0.0-1.2 eCW1 ([facility]) 44 0-40 eCW1 ([facility]) 130 100-199 eCW1 ([facility]) 127 65-99 eCW1 ([facility]) 69 0-149 eCW1 ([facility]) . eCW1 ([facility]) . eCW1 ([facility]) . eCW1 ([facility]) . eCW1 ([facility]) . eCW1 ([facility]) . eCW1 ([facility]) ID Date Data Source AMMONIA 10/20/2020 12:00:00 AM EST eCW1 ([facility]) Name Value Range Interpretation Code Description Data Sharonda rce(s) Supporting Document(s) 123 <32 AMMONIA eCW1 ([facility]) ID Date Data Source VITAMIN B12 LEVEL 10/20/2020 12:00:00 AM EST eCW1 ([facility]) Name Value Range Interpretation Code Description Data Sharonda rce(s) Supporting Document(s) > [phone] VITAMIN B12 LEVEL eCW1 ([facility]) ID Date Data Source PT & APTT 10/20/2020 12:00:00 AM EST eCW1 ([facility]) Name Value Range Interpretation Code Description Data Sharonda rce(s) Supporting Document(s) 29.4 24.2-38.5 PARTIAL THROMBOPLASTIN TI ME eCW1 ([facility]) 14.2 12.5-14.3 PROTHROMBIN TIME eCW1 ([facility]) 1.08 INR eCW1 ([facility]) ID Date Data Source FREE T4 & TSH PANEL 10/20/2020 12:00:00 AM EST eCW1 ([facility]) Name Value Range Interpretation Code Description Data Sharonda rce(s) Supporting Document(s) 1.220 0.358-3.740 eCW1 ([facility]) 0.93 0.76-1.46 eCW1 ([facility]) ID Date Data Source LIPID PANEL (CARDIAC RISK) 10/20/2020 12:00:00 AM EST eCW1 ( [facility]) Name Value Range Interpretation Code Description Data Sharonda rce(s) Supporting Document(s) Triglyceride [Mass/volume] in Serum or Plasma by calculation 70 <150 eCW1 ([facility]) 2.470 <5 eCW1 ([facility]) Cholesterol in LDL [Mass/volume] in Serum or Plasma by calculation 61 <100 eCW1 ([facility]) Cholesterol [Moles/volume] in Serum or Plasma 126 <200 eCW1 ([facility]) Cholesterol in HDL [Moles/volume] in Serum or Plasma 51 >40 eCW1 ([facility]) 75 eCW1 ([facility]) ID Date Data Source [id number] 10/20/2020 12:00:00 AM EST eCW1 ([facility]) Name Value Range Interpretation Code Description Data Sharonda rce(s) Supporting Document(s) Hemoglobin A1c/Hemoglobin.total in Blood 6.3 HEMOGLOBIN A1c eCW1 ([facility]) ID Date Data Source TOTAL IRON BINDING CAPACIT 10/20/2020 12:00:00 AM EST eCW1 ( [facility]) Name Value Range Interpretation Code Description Data Sharonda rce(s) Supporting Document(s) 193 50-170 IRON (FE) eCW1 ([facility]) 48.3 13.2-45.0 PERCENT SATURATION eCW1 ([facility]) 400 250-450 TOTAL IRON BINDING CAPACI TY eCW1 ([facility]) ID Date Data Source Reticulocyte Count Sysmex 10/20/2020 12:00:00 AM EST eCW1 ([facility]) Name Value Range Interpretation Code Description Data Sharonda rce(s) Supporting Document(s) 2.7 0.5-1.5 RETICULOCYTE % eCW1 ([facility]) ID Date Data Source Comprehensive Metabolic Profile (CMP) 10/20/2020 12:00:00 AM EST eCW1 ([facility]) Name Value Range Interpretation Code Description Data Sharonda rce(s) Supporting Document(s) 120 70-100 GLUCOSE, FASTING eCW1 ([facility]) 141 136-145 SODIUM LEVEL eCW1 ([facility] 0.95 0.55-1.30 CREATININE FOR GFR eCW1 ([facility]) > 60.0 >51 GLOMERULAR FILTRATION RATE eCW 1 ([facility]) 13 7-18 BLOOD UREA NITROGEN eCW1 ([facility]) 3.9 3.5-5.1 POTASSIUM SERUM eCW1 ([facility]) 105 98-107 CHLORIDE LEVEL eCW1 ([facility]) 28 21-32 CARBON DIOXIDE LEVEL eCW1 ([facility]) 8.7 8.5-10.1 CALCIUM LEVEL eCW1 ([facility]) 36 12-78 ALT/SGPT eCW1 ([facility]) 117 45-117 ALKALINE PHOSPHATASE eCW1 ([facility]) 1.0 0.2-1.0 BILIRUBIN,TOTAL eCW1 ([facility]) 39 7-37 AST/SGOT eCW1 ([facility]) 6.5 6.4-8.2 TOTAL PROTEIN eCW1 ([facility]) 3.1 3.2-5.2 ALBUMIN eCW1 ([facility]) 0.9 1.2-2.2 ALBUMIN/GLOBULIN RATIO eCW1 ([facility]) ID Date Data Source CBC with Differential 10/20/2020 12:00:00 AM EST eCW1 ([facility]) Name Value Range Interpretation Code Description Data Sharonda rce(s) Supporting Document(s) 6.5 4.0-10.0 WHITE BLOOD COUNT eCW1 ([facility]) 107.3 80.0-96.0 MEAN CORPUSCULAR VOLUME e CW1 ([facility]) 14.3 12.0-15.5 HEMOGLOBIN eCW1 ([facility]) 41.0 36.0-47.0 HEMATOCRIT eCW1 ([facility]) 3.82 4.00-5.40 RED BLOOD COUNT eCW1 ([facility]) 34.9 32.0-36.5 MEAN CORPUSCULAR HGB CONC eCW1 ([facility]) 153 150-450 PLATELET COUNT, AUTOMATED eCW1 ([facility]) 37.4 27.0-33.0 MEAN CORPUSCULAR HEMOGLOB IN eCW1 ([facility]) 13.0 11.5-14.5 RED CELL DISTRIBUTION WID TH eCW1 ([facility]) 6.4 0.0-3.0 EOS % eCW1 ([facility]) 51.5 36.0-66.0 NEUTROPHILS % eCW1 ([facility]) 10.6 0.0-5.0 MONO % eCW1 ([facility]) 30.7 24.0-44.0 LYMPH % eCW1 ([facility]) 3.4 1.5-8.5 NEUTROPHILS # eCW1 ([facility]) 0.5 0.0-1.0 BASO % eCW1 ([facility]) 2.0 1.5-5.0 LYMPH # eCW1 ([facility]) 0.4 0.0-0.5 EOS # eCW1 ([facility]) 0.7 0.0-0.8 MONO # eCW1 ([facility]) 0.0 0.0-0.2 BASO # eCW1 ([facility]) ID Date Data Source ALPHA FETOPROTEIN TUMOR QUANT 10/20/2020 12:00:00 AM EST eCW 1 ([facility]) Name Value Range Interpretation Code Description Data Sharonda rce(s) Supporting Document(s) 2.0 <8.1 ALPHA FETOPROTEIN TUMOR Q UANT eCW1 ([facility]) ID Date Data Source [id number] 10/11/2020 09:10:00 AM EST [facility] Name Value Range Interpretation Code Description Data Sharonda rce(s) Supporting Document(s) SARS coronavirus 2 RNA [facility] This lab was ordered by [facility] and reported by [facility]. ID Date Data Source [id number] 10/11/2020 12:00:00 AM EST [facility] Name Value Range Interpretation Code Description Data Sharonda rce(s) Supporting Document(s) SARS-CoV2 Rapid PCR [facility] This lab was ordered by [facility] and reported by [facility]. ID Date Data Source [id number] 10/07/2020 12:00:00 AM EST [facility] Name Value Range Interpretation Code Description Data Sharonda rce(s) Supporting Document(s) SARS-CoV2 Rapid Antigen [facility] This lab was ordered by [facility] and reported by [facility]. ID Date Data Source [id number] 09/25/2020 08:01:24 AM EST [facility] Name Value Range Interpretation Code Description Data Sharonda rce(s) Supporting Document(s) Progress Note [facility] OYBKOt1dSyWPIrQe12/XDGdiIURom4HeRJtkORh9MYfqIBYhD0NjGOO4zC2wCTP1JAqTUvZtPgSeHPA6 lbm [file] KcAgC1DgT+PQ2oYCd+Eq5Ma4YwtlV9ufRcKIw1ILDdCP0YHRSMZ1XHCp== ID Date Data Source [id number] 08/31/2020 11:26:13 AM EDT [facility] MR CERVICAL SPINE WITHOUT CONTRAST [id number] FINAL RESULTInterpreted by:Jason Gray MDEXAM: CERVICAL SPINE MRIINDICATION: Neck painCOMPARISON: CT 09/17/2019, x-rays 08/01/2020 TECHNIQUE: Multiple MRI sequences of the cervical spine were obtained in the sagittal and axial planes. FINDINGS: The visualized vertebral bodies are normal height. No fracture or destructive bone lesion. No lesion seen in the cervical spinal cord.C2-3: Unremarkable.C3-4: Left central disc protrusion. Mild to moderate thecal sac compression. Mild indentation left ventral spinal cord. This was not definitely seen on the CT.C4-5: Anterior cervical fusion. Anterior metallic hardware. Mild disc bulge. Bilateral uncinate osteophytes. Mild thecal sac compression. Mild stenosis left foramen and moderate stenosis right foramen. Mild overall canal stenosis.C5-6: Anterior cervical fusion with anterior metallic hardware. Disc bulge with bilateral disc osteophyte complexes. Moderate thecal sac compression with mild indentation right ventral spinal cord. Moderate bilateral foraminal stenosis.C6-7: Small central disc protrusion. This is smaller than on the previous study. Foramina are patent.C7-T1: Unremarkable.IMPRESSION: 1. C3-4 left central disc protrusion with mild cord compression. This is a new finding.2. Fusion C4-C6.3. C4-5 mild canal stenosis and moderate foraminal stenosis right worse than left.4. C5-6 right central disc osteophyte complex with mild cord compression. Moderate bilateral foraminal stenosis.5. C6-7 central disc protrusion is smaller than on the previous study.This document has been electronically signed by Jason Gray MD on 08/31/2020 11:24 AM Name Value Range Interpretation Code Description Data Sharonda rce(s) Supporting Document(s) ID Date Data Source [id number] 08/30/2020 04:36:05 PM EDT [facility] Name Value Range Interpretation Code Description Data Sharonda rce(s) Supporting Document(s) Progress Note [facility] ZTXRIj4pUcDYLuIc27/AFBwzEUNpd0WfFFgbABf4DUbeCMMrW2HaBOY7rB3cVEK2NWfXUoAmZaSnSFSr lbm [file] Toño+hQrVc9pdA1DNsYnPnfGLnEjtgrnGpk0GMuAhXc1v1pB13Jh5pWW9mguc5i0iz5kSvim+OoU5P4O [file] LqLVK6L9H9UdXfPJ1VSb9VSfE1WVY4gQPgKw5BODw9OLDLDxIoCH4OEAa= ID Date Data Source [id number] 08/26/2020 02:42:04 PM EDT [facility] Name Value Range Interpretation Code Description Data Sharonda rce(s) Supporting Document(s) [facility] LFLYSz7nVpPYAfNm63/YPJdoFWWss4JdAAxpBKh2IDcwIHCgJ2CcUKD5fR1lSJZ1KFzYSbPbBxUlZUH2 lbm [file] AgICAgICAgICAgICAgICAgICAgICAgICAgICAgICAgICAgICAgICAgICAgICAgICANCiAgICAgICAgIC AgICAgICAgICAgICAgICAgICAgICAgICAgICAgICAg ICAgICAgICAgICAgICAgICAgICAgICAgICAgICAgICAgICAgICAgICAgICAgICAgICAgICAgICAgICAN CiAgICAgICAgICAgICAgICAgICAgICAgICAgICAgICAgICAgICAgICAgICAgICAgICAgICAgICAgICAg ICAgICAgICAgICAgICAgICAgICAgICAgICAgICAgIC AgICAgICAgICANCiAgICAgICAgICAgICAgICAgICAgICAgICAgICAgICAgICAgICAgICAgICAgICAgIC AgICAgICAgICAgICAgICAgICAgICAgICAgICAgICAgICAgICAgICAgICAgICAgICAgICANCiAgICAgIC AgICAgICAgICAgICAgICAgICAgICAgICAgICAgICAg ICAgICAgICAgICAgICAgICAgICAgICAgICAgICAgICAgICAgICAgICAgICAgICAgICAgICAgICAgICAg ICANCiAgICAgICAgICAgICAgICAgICAgICAgICAgICAgICAgICAgICAgICAgICAgICAgICAgICAgICAg ICAgICAgICAgICAgICAgICAgICAgICAgICAgICAgIC AgICAgICAgICAgICANCiAgICAgICAgICAgICAgICAgICAgICAgICAgICAgICAgICAgICAgICAgICAgIC AgICAgICAgICAgICAgICAgICAgICAgICAgICAgICAgICAgICAgICAgICAgICAgICAgICAgICANCiAgIC AgICAgICAgICAgICAgICAgICAgICAgICAgICAgICAg ICAgICAgICAgICAgICAgICAgICAgICAgICAgICAgICAgICAgICAgICAgICAgICAgICAgICAgICAgICAg ICAgICANCiAgICAgICAgICAgICAgICAgICAgICAgICAgICAgICAgICAgICAgICAgICAgICAgICAgICAg ICAgICAgICAgICAgICAgICAgICAgICAgICAgICAgIC AgICAgICAgICAgICAgICANCiAgICAgICAgICAgICAgICAgICAgICAgICAgICAgICAgICAgICAgICAgIC AgICAgICAgICAgICAgICAgICAgICAgICAgICAgICAgICAgICAgICAgICAgICAgICAgICAgICAgICANCj w/cPPvD7hfkPQikjC5K5mmVv2GId3CNT2ak2LkLVJc BUesauSrSujCTkXzNMWjStoTKsx3DToqVQ9MyDMtZ6EoY3BpENmhER6YVJMySASyzSEcNJUcWIMiKsJ1 JOMrEHalCF7CzRHsXDbfMONtGESaKO2GPQDsO977lxLzGW9VVr7LQrUjQR0fsg9BSGxtVRTpWjpQZmc0 KYibJW7RhEMbpGDvIRZxBVAYBoNeV5heb9RwLkJaVT PEVFwyNA2Cw9EggIEmOLt+If7GGO4va7ThBYwfJVZqTO5hba6QZMkUHbRsY5FowXhgWLOzo2iuBLGqIW 7rmRRoKCC7CJNjTsHcV1NaSITUx8wnxjNsjXNlDV8eAw0hYTNmCNAoYeUdWVAPBM1WNUDyAWTzdFOsEO GvPBGOVT7LQGzxQHH1SNQuuuDkrOWlZXfmGO8FTDAu bnQgMTkgMCBSDQo+Hh9SMN4if2QuPXczAHRqPL6jlw8BDQoZAfDwC9B9yWVzA5F3HVscBh1CDACrGCLg XUbjXVRSBYaoAQ9UFU7pmiI8IX5SnQIdRDCwTQXrcTTtJNh3H76cxTElYGldPG4ALPJ+Starr+Rt6FYVKd GMDvJZAgOcJsRUXJMxNdH0VlV2RXj8KkV8ZyEW79qK xirhTlJPrfNN7OKZ7pSBJiYICYSS0NxCMexT5vmnHsMFRcCUGSSdSbV25ijVYjICGxGNE6RTXbZv3JIL VkB6AcbxUkhIlymkWiIPBqCCCMCI8USDdbeaPxyMYgbInbNZ64sFylZO5YZc4QBnKqXX3oux8JqYAwVz 1JSGItHq6GWSLsZWUxOZClEBI3UFJmLgTlEGymRTVt FSBrCTN7FGWkOEUsZZ4IQrWlJGJrZXffXkymWBItECWmms5TIZBjONKhTIn8WcMlKZPmBXWeYKolWYMa WODpBAK3RTArFJLhEU0QTrBlEPMxQBR4EPGbFPLiDSWkwa1BJTAoBVUdWaGvSPVlKYNpVXQhRYuiQKGi WJTuMLG3OAClQBYnLF5UOvJdJZJwASTfEwJvNNMkJG Chtw6UWBEnCWEyZiC3QiExAMOxIRIpTRojRINfZZW7BRJdETNaQBZlOO9WWmEiYIXdJTA5WIZeQXEaER Lora3CPKEcKOLkKRc0JTUbWMJdLLAzZCuuYCJyPFL8UNI2GMNtRSRvOC3VInPkUZDhIJS6UeFjQYYwYU Jdkj0UTEJcAGWnWdK9XBCrOYUrDSWfOHkuDKEsBRF8 OIFdZACiZOUqUT9VZvEcIXHhYEhfPQBdQBMnCZEzbd0IDYTcVYRxQzG6CiSwFOGvIXWiCLdvYLKlGJL4 DJi6JXRsEHWmUJ5NFyNwFIMdQTs0KdGfGLJrBBQzsd9OKUGiUUGeUMRmTyAlHDUbJVVyGLj0apCvuPQl KVh0BL5HD7VqajLbMaOCDa8Rf971VSIuAVHlZi7AG0 ntFm7iHFQeVNDETi9CEJe7CTvtAMSdMpWtEec7YBVgTyQpAqVcYJo4LrL5JFE2H5T+WDh5EvSnCLB0HC PoSMmpB5IhYwL3AUGrWDgwDGDwYCfrVg8rAFYMJt8+PDuiqGRelFquXCYYNxT0VwQ3RKoeVLINLa8E ID Date Data Source [id number] 08/26/2020 02:41:59 PM EDT [facility] Name Value Range Interpretation Code Description Data Sharonda rce(s) Supporting Document(s) Progress Note [facility] VRISHm9rIhSARmHl73/VXYmoSVXof2BcIWxoCCj4WMstEKThS1FlHOR2vS4bPJF0AXjHNxMfQbQhDVN8 lbm TvMyeAEeJzCODmFlvUZiDwCKygJtdkhCFfFK4WzHF7VACrT92rUSHdQSTlW0CbZUKnTBA+Vw4ACWCgjZ FmPR2FJkoZ0M0fm+O49XuB/esTPStHJwhB0AGBPOr2bfqOJOyUAgQuKar1uGtIRe2k0+gzPyKTRh5U/D ayKM+g1OhI7EIeva+Skoax+yvClgOdcdCp6a/2T9cX bLpif/mJw7uBDflu/MGRAtrA0KjqcBJ+cuWsQ557YwpmMYhgauc8LEtns7PMrW872Qy4+xgTurJwuW7V t1mRJErBodY0+GNOqWyfrOpNn0dm+t/poSD5JRwyOmxYj+vyUXsTwTILrJJabHBlnBDpxzjfw73X44kK jRAv1zPgbXHBveMUbH5Fjh4MLM+lu2Uhm+oSK6HVov IvjR2zBGxjvUiSRUH2ECVfS573Xa6/YGSxiuQbWcyPlgKwiwv2HJR9720myDB7Jup1I/3KSjdwSuUZTW VSoe8Bi7Fhs2Z6rUaq2UWSkYbFrM2QA7OPwCHr4Dwaw+FohIGsvSjdtxA2mLTfD/2oTxiFWgnDjVN+yn 4i5LXuC2E3ivXgPf1ZnleUq95desyUVTplGm379wVN oG7AreukqHDDp2WAn54tKWlRVCCFQAQv7NLEUzqYjRKWIJEkYYmpozMGCpwCHg+AVODCmICQKAsIakw8 mg7P2NXiwP2czpC6n7JCPVHpm0Ay4b47Okp1anXm+U4F7f5nuSUHzzM6Gv7oXHDN9LToHFmsQkwgqZzw bwBaBIB6TonIb5SN/5Ao8LdYLA6C8PUzYlLCG7yyY/ 3MmypEE89srhWikRWl+3f72ROXI07N+b5PV+DHS70bbbBy9A+Tqkewl3tTcb8ITNRndYWaNcxYFSGIHy QsHCxAaoT+7njNGgFR56MnEcjlhUe8UWd5WPfNcBGACVCucNt/LOuJ/g7S/il48YrGCBUDkUwJ8WfP3/ 5YMzdnAseqAOxLNEgipNn9+Heriberto/q+O5HvW21PFyHcw [file] ICAgICAgICAgICAgICAgICAgICAgICAgICAgICAgIC AgICAgICAgICAgICAgICAgICAgICAgICAgICAgICAgICAgICAgICAgICAgICAgICAgICAgICAgICAgDQ ogICAgICAgICAgICAgICAgICAgICAgICAgICAgICAgICAgICAgICAgICAgICAgICAgICAgICAgICAgIC AgICAgICAgICAgICAgICAgICAgICAgICAgICAgICAg ICAgICAgICAgDQogICAgICAgICAgICAgICAgICAgICAgICAgICAgICAgICAgICAgICAgICAgICAgICAg ICAgICAgICAgICAgICAgICAgICAgICAgICAgICAgICAgICAgICAgICAgICAgICAgICAgDQogICAgICAg ICAgICAgICAgICAgICAgICAgICAgICAgICAgICAgIC AgICAgICAgICAgICAgICAgICAgICAgICAgICAgICAgICAgICAgICAgICAgICAgICAgICAgICAgICAgIC AgDQogICAgICAgICAgICAgICAgICAgICAgICAgICAgICAgICAgICAgICAgICAgICAgICAgICAgICAgIC AgICAgICAgICAgICAgICAgICAgICAgICAgICAgICAg ICAgICAgICAgICAgDQogICAgICAgICAgICAgICAgICAgICAgICAgICAgICAgICAgICAgICAgICAgICAg ICAgICAgICAgICAgICAgICAgICAgICAgICAgICAgICAgICAgICAgICAgICAgICAgICAgICAgDQogICAg ICAgICAgICAgICAgICAgICAgICAgICAgICAgICAgIC AgICAgICAgICAgICAgICAgICAgICAgICAgICAgICAgICAgICAgICAgICAgICAgICAgICAgICAgICAgIC AgICAgDQogICAgICAgICAgICAgICAgICAgICAgICAgICAgICAgICAgICAgICAgICAgICAgICAgICAgIC AgICAgICAgICAgICAgICAgICAgICAgICAgICAgICAg ICAgICAgICAgICAgICAgDQogICAgICAgICAgICAgICAgICAgICAgICAgICAgICAgICAgICAgICAgICAg ICAgICAgICAgICAgICAgICAgICAgICAgICAgICAgICAgICAgICAgICAgICAgICAgICAgICAgICAgDQog ICAgICAgICAgICAgICAgICAgICAgICAgICAgICAgIC AgICAgICAgICAgICAgICAgICAgICAgICAgICAgICAgICAgICAgICAgICAgICAgICAgICAgICAgICAgIC TbEZFnWBGeXXi4E7nnKQCcEPGpNR9eRGl1Lb0+TZtGOvNcESV0xhEfpH6QKJ0bo0CxYFmmRVNvv2TjNM g2DG6EYXMvZBqvRO1MWQrdeq4BXYQiZBXhcNVFn4ku SoKqMUI0NVClMcnuFW4IGXYfP7ztptFuOQDmBSSKYJynUXOMJDbqUZBXVSIpJESrLfBcVWleSI9Ex1Vv zPP9PPk+Pp4UEK3iz8ArWEaoMBOvIB2kzw2BZQhBNyIqZ9OgpaS0OBZ2EFZcPg6KXKNtAXExqTOgSNRc NBJKZoKqJ4YmvT31FTSPTz7+BVibipEtWiuUXxW7TZ Nnz0MsWZp6UG4GBAPlJMq6uQWhYXEuI9Vuy3EmRt58CHSaEptgV8ZqnJZftZLwFTpab2PrYNBOJWKdtV XpSW0rNr3zNUFqRTJpMrZaXCHCPO0PPIWaQEMxxOOsRJPhLHTGXK3ANHlaNUE2PJLrvpVclTHmAVlqLY 9QYXJlbnQgMjggMCBSDQo+Zl4PVM3io8XoHVfaOLNl EE2tgz4GTEsXGpPoJ3Z6zPXuO9E0KXofBe9SJWFkMJIkOdMaXDKPVKipKE5DGF5burC2CQ6TvTMpKLHi LEHrhKMzPDp5C47bpFDsDJnbGD3DMMH+Starr+Hi3HFFVmSDLeGHVxDjBrGBOQRuZmD5ReE9RFf4WoZ3Ee VP21fXezmsMhXYtoRP6ZUL5bITExZITUQE4PcWBinA 2tdrMhVAPpYSQIXvLgE04ymPRcXCOfYIC4MNMdDu7ZYIOhM8PsgpSnyNyyprZlMHGwBUJPJA4PJUsmro WlxBReqRrjJR98aUmmTP9AXu2QOlAyWK4fab7XrZKhKt1DEEDvPO7EWPUjDVHpOOUuDVL7FJHsIsWwXM rgJYUwTQSgEHY4LGNuTUFjED3TUkGwFBQaVhxnOnOl CBYvREEzcz4BXIDuMUJnOFj5MqPrPVIrCAVvUEcwNSIgOMDuBOZ8WFEuRKVqTH9SEzTyFQFdCEFvPACy VSGoPPUjcv0MJOSkZLQoTvG5PLOwFAOjOKHcBDozJAUyLPR9YAt7AOYhPNFmIP6AAnNoKXHrBNQdOCHt WXYtSTBsia5LKKXcYFXrMBN0YDXqTPOuKHJkYRbaNV TxJCI8ZIq0AOLgMCIsHG4TKaBgGTQsIND8CnDoYNKnHLHpky6OKERqIWPvUUa0UZStWMWgVLRiGZccIH RyCWHqIWYpYVBfWGDdRS6JVtRtOVXtCPT0SVyzEMNkVBZzjq3HDNSpWVRkCeN9LRGoLZRqZJZbNIdrMY WbVAB4WTQxMKGlIBJeNR1GEuZrCWDzRWEzGTJkNPCc PTVeag2HXYHxDTCyHPIaRSKdHDSjBHZjJFqeZTVvGBR9XVHaVEVcLJRzBO7VDoKbWEGpAjHyPBWqCSPd XHZmhp8IQQCzSGNtDiF6MAKdNMRrBSBiXYtaSVXeNHQ6PwT8CEUbUOMoVE0ARpLgDSSoFvH4SYDtNERh HVZrsm6NVRXaJBMnDdtxNCHuQXLaIMRrEOseBKCbWN S8UNGlQAAdJTOlHX1HDwJmYMXtAedzXPQrPLPtLLMzak5EVZWfOQLiYWUiPcMbFNArJHOvLYriBSEnUY RyWYg4QUMcEHAhZX7EBwKaIHIaGhWvMHWkKSGfGWQveq3QCWUhCVDwYGH7MyShTBKhGSDrFKa5jcMhhS JiZLi9YG8UT0LoqrNnBrKHFu5Jh475GTCtAUDtPx3K K4cfFs3eXKYwHNKDKg1SIGz1ZTydSGJmPvIwDQB3XUP5D7KpDbSeAFJ3XMUvIezlPME+IDwwODBlMjBi FWFqZCi9QmglZtPyXlSrAoZlZENaJYD4Se0rSLZWRv9+MEqgxIPviFofLKGAHwOwZCFyVRevMFIQYc3L ID Date Data Source [id number] 08/14/2020 04:54:22 AM EDT [facility] Name Value Range Interpretation Code Description Data Sharonda rce(s) Supporting Document(s) [facility] KHRFGq8lDrBTKpAe85/DBYggOIZsj0UmIUiiBQv1BKwvDTHkD9VdCPX7gG7kITS7EVcDToRdEhLoNME5 lbm [file] ICAgICAgICAgICAgICAgICAgICAgICAgICAgICAgICAgICAgICAgICAgICAgICAgICAgICAgICAgICAg HZXeNMRrXXGfFM6IFJNlQGGlBJXmKQZsAVFlMFRtBB AgICAgICAgICAgICAgICAgICAgICAgICAgICAgICAgICAgICAgICAgICAgICAgICAgICAgICAgICAgIC ToMDHkTMQxDRWuHNBoHCUyYPVrLK3FJSXdSDBcPOBhKLGhQYQrCOPyIQBzDZPwPZGmNVCzJEBsKYYyYS AgICAgICAgICAgICAgICAgICAgICAgICAgICAgICAg MCEmAFVqCMNpRLPdHYJpOULkQOXeOJGgWHLtCMQtJB0LLAJvHKWnLVDtPLFrNPRrQPKrHYBpJWTcSLMv ICAgICAgICAgICAgICAgICAgICAgICAgICAgICAgICAgICAgICAgICAgICAgICAgICAgICAgICAgICAg WGXoGOIqAWQeMIKtYM4BHRPcZFNjUYUrZHJzHUSdEK AgICAgICAgICAgICAgICAgICAgICAgICAgICAgICAgICAgICAgICAgICAgICAgICAgICAgICAgICAgIC XlYDYxGHNlLDEwQCLeGPJkLLCfQNQjON0XMTHwPXNtOVOhHSBoRLZlYAZrROXwLCUoTDDeOPWkTSVjGQ AgICAgICAgICAgICAgICAgICAgICAgICAgICAgICAg QWPaVSCaWAMqOQXjLMHtDDZkYIRdJMPxJKBbMOPpHBAfUY6QOMFbXABhLCZaBKVwTMToNCMrHJLkGAPm ICAgICAgICAgICAgICAgICAgICAgICAgICAgICAgICAgICAgICAgICAgICAgICAgICAgICAgICAgICAg TKMaVWIgCTRmRXNdBWAbOX1ROLApXQUlKGQmEXEdGP AgICAgICAgICAgICAgICAgICAgICAgICAgICAgICAgICAgICAgICAgICAgICAgICAgICAgICAgICAgIC ZaZNOqHQPgPRIhGQVqPASwXBYfHVUcFGTsXY4JZNGpOTQdDVAuUFTlLKVpPVZdJOStRVKeFBLgNPUjWF AgICAgICAgICAgICAgICAgICAgICAgICAgICAgICAg YGVfSJGkGKIdBPLtIXLuRGMnKMZmSEGaDIMhVHPzCGDzENKzDA3JREYdMBBaFYRxCGDbHRAbUPMvXBXx ICAgICAgICAgICAgICAgICAgICAgICAgICAgICAgICAgICAgICAgICAgICAgICAgICAgICAgICAgICAg WQFzLQDjTGFeXOMvYWFoSPXtZZ6WQV87yEPsc5V3YH OfIG7hhgg/Oj0FMGeqtmGgiBCkAD6ZLtShNP3sic2HIbYjXG2drq0HBEuSLfSvU5B0cDGcBCInMHUTSb CbA22qKEluIo88JJfgZETaLlFrFYn2Wa6AOuDkN9iuVZXoRaW1GVSxQoZ5UYZmOoE7ZQSePeCqAEqfSO 8Gf7UfvQMcGLe+Jj1FMZ7mx7PhHNhqCVTlAZ4sbu0S CBlPNhAvI9BgeuO2VBU2HRFvEz2DNZQeYINtkRIiNTHfMYSBBpDlR8LwiH47HKEMMp8+DQplbmRvYmoN IeL8UOZbl7KgUKa9AA9TQQBeRCy1cEMeBYYqR9Bww0OrNq75ALFkFhhmFOxwTWHCNQC5ipbbHQBtUKEu DX3fNY9iKNAcDSEyKbIiYSKEDS9ZFZZsNBOxgFBnEE GkWJNQBX6SDRdpCIK7MKQiovKsaJVrPCybUE6DRJTllaGrWgXtYRIVRPx+Xs7OZD4eh8QtMBzbRpCzNK 7czq7LEFiNDdTzY8Q1pPOyA7I2BGqdPb8VTDDeJVZcTkXwLLPIWWpvHQ1PVW0hboZ2ZQ6RqHFjYXHvGH SswRDzXLn9Y49ogHFyQMovRQ3BQEB+Starr+Sa9GLPWb AVWhNZAjCuTwDZPQHiXtV1PdF9EYb7EnG4WqHN13uKbmhfVgTGzuKT6BEX1uIIWiDCLSJR7NpYVhwY2j ewFgRQKeMPQXIgRuI80mxTEkAVWoJFIkAKThHn9EUEFdC6HfflMfhEuztoGnJHPhJQYZIP0WCPbsckQe jMQuhWzhBK86oPcbJG3VKk6VUeXdRK3fuj4TvRJiBi 0RPGMbDw7EBNYfVSVcHMWwOKZ0PCRtCcSbKTeaQHFlFTQqPZS7EMCyFNAtPM9TOyToYSMjUuehIMtdAD VqJUEuqj0UHYNjPMM4NJT7ZASlZAKkENAsPWcsIHGjFDPmQNT7UXTrSFXgOU1CEeTlBKRjJJIhFfJzSS BaPOVjhq5LZRZxFWTxUXW4SNSnXVIdIEWgTRubPYEj IDP4DVJkNSBgYJCtML2YKvZvOLOrJBjoLKIvEFFwYKMrrk5LSFHnZASfXCS3ZQTxDBGcZMLsBQdjOGTk VUJxEVL5UIOyKNQoVY5FKoQuTNAkXXV7ZdPvBHVgWVKrxa4IRJLwWJOqRaUzSmJzZOPsGWIaBUrbLCWm TKNgWqM2XKIfWZQtXD1XFzXfVBJeQDJvRlGkNLBlOG Slxn5YYZYhBYOvSkI5WwKtBQIxICFsZBjxGCFqAZRcYZZ3OENqPHQiRP0YCeWrURVnWJT4UQXoVZSjZQ Ydvl2YSYOrHPL6PxTxRHHpEBYcTCDqPKtjRNVpDBR5PNBtCTPlUFCtIY7KDaRlXIQuGSkzJAAsKMCnMM Raor6UDHCfIPY9YIN8XUXnRIIeEEOaOHeqVCPmOWH0 RMP1LGTcHYBvBF3IGsMuIEEjYzY6IeKkXAMxTNPtlh2FVPZhKRM8KoL3SQWgSOHeUQSmKLlrRHHkTTV5 SHK4VMCbKDCvVP5EKmPkXBBiSiO7CWWmYNHeJYDvqf8YWKHfHIN5BkZzHCKdIIOzJWIxOAjvMVZwPVH2 LXM8ENWrHHTySV6MNaEeUETpSiv5IRTvVXCbSJJqkj 1VMIDoXKM6MRtpASJwOGWhOOZoEAsuJMAzLGT6BBV1FYYwEBIcPZ2PMiOwSUCtElqrUIEtFUUmSHLlqk 8PVKTdLYS6NGe0HEEnQFOuAHEjFPpbVIIvRNbjWIv8LCHzNKKvQC2VJxLuVMOoQfJcMaClDWZtZRFpgy 3EKVIpEWH1ZYWjZFSeTDFvWNEdOTu2jiCdfOQoTSx8 NY7YQ6EtjcImVnhLYt2Bx286KBL7EWEqKz1QO6krTl7fWSIfMRDVOf6UVDd4BvBdSTKaYzWmVLPjWMC9 FVD7OBzcPoPbEPY5OTKkFfC+CQqtHgK1RMZvOkI5OYJqRFyuNhraYHSeRHX3FRe1ErNjXg0vZMURSt4+ AVtcwZCdfAwjFNRDXsqiLiF8UBxzXZTPGa7H ID Date Data Source [id number] 08/05/2020 07:00:23 AM EDT [facility] XR SPINE CERV 4 OR MORE VIEWS [id number] RESULTInterpreted by:Dony Raman [facility] SPINECLINICAL STATEMENT: Status post spinal fusion. Neck pain.TECHNIQUE: AP, flexion-extension, and neutral lateral views of the cervical spine.COMPARISON: 04/20/2019.FINDINGS:Since the prior study, there has been no significant interval change. The patient is again noted to be status post anterior cervical discectomy and fusion at C4-C6. A ventral fixation plate with interlocking screws appear intact and aligned.Normal anatomic alignment is maintained. Normal vertebral body heights are preserved. The prevertebral soft tissues are within normal limits.Otherwise, the remaining intervertebral disc spaces are preserved.IMPRESSION: Since 04/20/2019,No significant interval change. Status post ACDF at C4-C6, with stable postoperative changes. This document has been electronically signed by Dony Raman MD on 08/05/2020 6:58 AM Name Value Range Interpretation Code Description Data Sharonda rce(s) Supporting Document(s) ID Date Data Source [id number] 06/07/2020 01:45:03 PM EDT [facility] Name Value Range Interpretation Code Description Data Sharonda rce(s) Supporting Document(s) Progress Note [facility] [id number]/[id number] lbm [file] [id number]C6JLQs= ID Date Data Source [id number] 04/28/2020 12:00:00 AM EDT [facility] Name Value Range Interpretation Code Description Data Sharonda rce(s) Supporting Document(s) 2019-nCoV N XXX Ql SARAH N2 [facility] [place] This [facility] reported by [facility]. ID Date Data Source Hereditary Hemochromatosis (Hemoch) 03/01/2020 12:00:00 AM E DT eCW1 ([facility]) Name Value Range Interpretation Code Description Data Sharonda rce(s) Supporting Document(s) . HEREDITARY HEMOCHROMATOSIS eCW 1 ([facility]) ID Date Data Source FERRITIN 03/01/2020 12:00:00 AM EDT eCW1 ([facility]) Name Value Range Interpretation Code Description Data Sharonda rce(s) Supporting Document(s) 16 8-855 FERRITIN eCW1 ([facility]) ID Date Data Source MAGNESIUM LEVEL 03/01/2020 12:00:00 AM EDT eCW1 ([facility]) Name Value Range Interpretation Code Description Data Sharonda rce(s) Supporting Document(s) 1.9 1.8-2.4 MAGNESIUM LEVEL eCW1 ([facility]) ID Date Data Source NT-PRO BNP 03/01/2020 12:00:00 AM EDT eCW1 ([facility]) Name Value Range Interpretation Code Description Data Sharonda rce(s) Supporting Document(s) 52 <125 NT-PRO BNP eCW1 ([facility]) ID Date Data Source H PYLORI SERUM QUANT IgG CRISTEL 02/08/2020 12:00:00 AM EDT eCW1 ([facility]) Name Value Range Interpretation Code Description Data Sharonda rce(s) Supporting Document(s) 0.67 0.00-0.79 H PYLORI SERUM QUANT IgG CRISTEL eCW1 ([facility]) Procedure Social History Code Duration Value Status Description Data Source(s ) Alcohol intake 01/01/2021 12:00:00 AM EST Current non-d ruth of alcohol (finding) completed Current non-drinker of alcohol (finding) [facility] Tobacco use and exposure 01/01/2021 12:00:00 AM EST Never used co mpleted Never used [facility] Smoking 01/01/2021 12:00:00 AM EST Former smoker completed Former smoker [facility] Smoking 12/26/2020 12:00:00 AM EST Former Smoker completed Former Smoker eCW1 ([facility]) Smoking 12/26/2020 12:00:00 AM EST Former Smoker completed Former Smoker eCW1 ([facility]) Smoking 12/26/2020 12:00:00 AM EST Former Smoker completed Former Smoker eCW1 ([facility]) Smoking 10/20/2020 12:00:00 AM EST Former Smoker completed Former Smoker eCW1 ([facility]) Smoking 10/20/2020 12:00:00 AM EST Former Smoker completed Former Smoker eCW1 ([facility]) Smoking 10/20/2020 12:00:00 AM EST Former Smoker completed Former Smoker eCW1 ([facility]) Smoking 10/20/2020 12:00:00 AM EST Former Smoker completed Former Smoker eCW1 ([facility]) Smoking 10/20/2020 12:00:00 AM EST Former Smoker completed Former Smoker eCW1 ([facility]) Smoking 10/20/2020 12:00:00 AM EST Former Smoker completed Former Smoker eCW1 ([facility]) Smoking 10/20/2020 12:00:00 AM EST Former Smoker completed Former Smoker eCW1 ([facility]) Smoking 10/20/2020 12:00:00 AM EST Former Smoker completed Former Smoker eCW1 ([facility]) Smoking 10/20/2020 12:00:00 AM EST Former Smoker completed Former Smoker eCW1 ([facility]) Smoking 10/20/2020 12:00:00 AM EST Former Smoker completed Former Smoker eCW1 ([facility]) Smoking 10/20/2020 12:00:00 AM EST Former Smoker completed Former Smoker eCW1 ([facility]) Smoking 10/20/2020 12:00:00 AM EST Former Smoker completed Former Smoker eCW1 ([facility]) Alcohol intake 09/25/2020 12:00:00 AM EST Current non-d ruth of alcohol (finding) completed Current non-drinker of alcohol (finding) [facility] Alcohol intake 08/26/2020 12:00:00 AM EDT Current non-d ruth of alcohol (finding) completed Current non-drinker of alcohol (finding) [facility] Alcohol intake 08/14/2020 12:00:00 AM EDT Current non-d ruth of alcohol (finding) completed Current non-drinker of alcohol (finding) [facility] Smoking 05/05/2020 12:00:00 AM EDT Former Smoker completed Former Smoker eCW1 ([facility]) Smoking 05/05/2020 12:00:00 AM EDT Former Smoker completed Former Smoker eCW1 ([facility]) Smoking 05/05/2020 12:00:00 AM EDT Former Smoker completed Former Smoker eCW1 ([facility]) Smoking 05/05/2020 12:00:00 AM EDT Former Smoker completed Former Smoker eCW1 ([facility]) Smoking 05/05/2020 12:00:00 AM EDT Former Smoker completed Former Smoker eCW1 ([facility]) Smoking 05/05/2020 12:00:00 AM EDT Former Smoker completed Former Smoker eCW1 ([facility]) Smoking 05/05/2020 12:00:00 AM EDT Former Smoker completed Former Smoker eCW1 ([facility]) Smoking 05/05/2020 12:00:00 AM EDT Former Smoker completed Former Smoker eCW1 ([facility]) Smoking 05/05/2020 12:00:00 AM EDT Former Smoker completed Former Smoker eCW1 ([facility]) Smoking 05/05/2020 12:00:00 AM EDT Former Smoker completed Former Smoker eCW1 ([facility]) Smoking 04/27/2020 12:00:00 AM EDT Former Smoker completed Former Smoker eCW1 ([facility]) Smoking 04/27/2020 12:00:00 AM EDT Former Smoker completed Former Smoker eCW1 ([facility]) Smoking 04/27/2020 12:00:00 AM EDT Former Smoker completed Former Smoker eCW1 ([facility]) Smoking 04/27/2020 12:00:00 AM EDT Former Smoker completed Former Smoker eCW1 ([facility]) Smoking 04/12/2020 12:00:00 AM EDT Former Smoker completed Former Smoker eCW1 ([facility]) Smoking 04/12/2020 12:00:00 AM EDT Former Smoker completed Former Smoker eCW1 ([facility]) Smoking 04/12/2020 12:00:00 AM EDT Former Smoker completed Former Smoker eCW1 ([facility]) Smoking 04/12/2020 12:00:00 AM EDT Former Smoker completed Former Smoker eCW1 ([facility]) Vital Signs ID Date Data Source UNK Name Value Range Interpretation Code Description Data Source(s) Diastolic blood pressure 22 mm[Hg] 22 mm[Hg] eCW1 ([facility]) Systolic blood pressure 118 mm[Hg] 118 mm[Hg] e CW1 ([facility]) Body temperature 97.7 [degF] 97.7 [degF] eCW1 ( [facility]) Respiratory rate 18 /min 18 /min eCW1 (Counts include 234 beds at the [facility]) Heart rate 93 /min 93 /min eCW1 ([facility]) Body mass index (BMI) [Ratio] 35.32 kg/m2 35.32 kg/m2 eCW1 ([facility]) Body height 63.5 [in_i] 63.5 [in_i] eCW1 ([facility]) Body weight 202.6 [lb_av] 202.6 [lb_av] eCW1 ([facility]) Oxygen saturation in Arterial blood by Pulse oximetry 98 % 98 % MEDENT ([facility]) Body temperature 35.6 Patricia 35.6 Patricia MEDENT ( [facility]) Body temperature 96.0 [degF] 96.0 [degF] MEDENT ([facility]) Heart rate 93 /min 93 /min MEDENT ([facility]) Diastolic blood pressure 88 mm[Hg] 88 mm[Hg] MEDENT ([facility]) Systolic blood pressure 139 mm[Hg] 139 mm[Hg] M EDENT ([facility]) Body mass index (BMI) [Ratio] 34.9 kg/m2 34.9 k g/m2 MEDENT ([facility]) Body weight 197.25 [lb_av] 197.25 [lb_av] MEDEN T ([facility]) Body height 63.00 [in_i] 63.00 [in_i] MEDENT ([facility]) 5'3" Oxygen saturation in Arterial blood by Pulse oximetry 98 % 98 % MEDENT ([facility]) Body temperature 36.6 Patricia 36.6 Patricia MEDENT ( [facility]) Body temperature 97.9 [degF] 97.9 [degF] MEDENT ([facility]) Heart rate 87 /min 87 /min MEDENT ([facility]) Diastolic blood pressure 82 mm[Hg] 82 mm[Hg] MEDENT ([facility]) Systolic blood pressure 122 mm[Hg] 122 mm[Hg] M EDENT ([facility]) Body mass index (BMI) [Ratio] 35.1 kg/m2 35.1 k g/m2 MEDENT ([facility]) Body weight 198.12 [lb_av] 198.12 [lb_av] MEDEN T ([facility]) Body height 63 [in_i] 63 [in_i] MEDENT ([facility]) 5'3" Diastolic blood pressure 60 mm[Hg] 60 mm[Hg] eCW1 ([facility]) Systolic blood pressure 116 mm[Hg] 116 mm[Hg] e CW1 ([facility]) Body temperature 97.7 [degF] 97.7 [degF] eCW1 ( [facility]) Respiratory rate 18 /min 18 /min eCW1 (Counts include 234 beds at the [facility]) Heart rate 82 /min 82 /min eCW1 ([facility]) Body mass index (BMI) [Ratio] 34.28 kg/m2 34.28 kg/m2 eCW1 ([facility]) Body height 63.5 [in_i] 63.5 [in_i] eCW1 ([facility]) Body weight 196.6 [lb_av] 196.6 [lb_av] eCW1 ([facility]) Diastolic blood pressure 74 mm[Hg] 74 mm[Hg] eCW1 ([facility]) Systolic blood pressure 128 mm[Hg] 128 mm[Hg] e CW1 ([facility]) Body mass index (BMI) [Ratio] 34.69 kg/m2 34.69 kg/m2 eCW1 ([facility]) Body height 63.5 [in_i] 63.5 [in_i] eCW1 ([facility]) Body weight 199 [lb_av] 199 [lb_av] eCW1 ([facility]) Diastolic blood pressure 60 mm[Hg] 60 mm[Hg] eCW1 ([facility]) Systolic blood pressure 120 mm[Hg] 120 mm[Hg] e CW1 ([facility]) Body temperature 98.3 [degF] 98.3 [degF] eCW1 ( [facility]) Respiratory rate 18 /min 18 /min eCW1 (Counts include 234 beds at the [facility]) Heart rate 111 /min 111 /min eCW1 ([facility]) Body mass index (BMI) [Ratio] 33.37 kg/m2 33.37 kg/m2 W1 ([facility]) Body height 63.5 [in_us] 63.5 [in_us] eCW1 ([facility]) Body weight Measured 191.4 [lb_av] 191.4 [lb_av ] eCW1 ([facility]) Diastolic blood pressure 60 mm[Hg] 60 mm[Hg] eCW1 ([facility]) Systolic blood pressure 120 mm[Hg] 120 mm[Hg] e CW1 ([facility]) Body temperature 98.3 [degF] 98.3 [degF] eCW1 ( [facility]) Respiratory rate 18 /min 18 /min eCW1 (Counts include 234 beds at the [facility]) Heart rate 111 /min 111 /min eCW1 ([facility]) Body mass index (BMI) [Ratio] 33.37 kg/m2 33.37 kg/m2 eCW1 ([facility]) Body height 63.5 [in_us] 63.5 [in_us] eCW1 ([facility]) Body weight Measured 191.4 [lb_av] 191.4 [lb_av ] eCW1 ([facility]) Diastolic blood pressure 62 mm[Hg] 62 mm[Hg] eCW1 ([facility]) Systolic blood pressure 120 mm[Hg] 120 mm[Hg] e CW1 ([facility]) Body temperature 97.4 [degF] 97.4 [degF] eCW1 ( [facility]) Respiratory rate 18 /min 18 /min eCW1 (Counts include 234 beds at the [facility]) Heart rate 100 /min 100 /min eCW1 ([facility]) Body mass index (BMI) [Ratio] 33.47 kg/m2 33.47 kg/m2 eCW1 ([facility]) Body height 63.5 [in_us] 63.5 [in_us] eCW1 ([facility]) Body weight Measured 192 [lb_av] 192 [lb_av] eC W1 ([facility]) Diastolic blood pressure 72 mm[Hg] 72 mm[Hg] eCW1 ([facility]) Systolic blood pressure 106 mm[Hg] 106 mm[Hg] e CW1 ([facility]) Body temperature 96.6 [degF] 96.6 [degF] eCW1 ( [facility]) Respiratory rate 17 /min 17 /min eCW1 (Counts include 234 beds at the [facility]) Heart rate 110 /min 110 /min eCW1 ([facility]) Body mass index (BMI) [Ratio] 33.61 kg/m2 33.61 kg/m2 W1 ([facility]) Body height 63.5 [in_us] 63.5 [in_us] eCW1 ([facility]) Body weight Measured 192.8 [lb_av] 192.8 [lb_av ] eCW1 ([facility]) Diastolic blood pressure 62 mm[Hg] 62 mm[Hg] eCW1 ([facility]) Systolic blood pressure 100 mm[Hg] 100 mm[Hg] e CW1 ([facility]) Body temperature 97.5 [degF] 97.5 [degF] eCW1 ( [facility]) Respiratory rate 18 /min 18 /min eCW1 (Counts include 234 beds at the [facility]) Heart rate 107 /min 107 /min eCW1 ([facility]) Body mass index (BMI) [Ratio] 34.38 kg/m2 34.38 kg/m2 eCW1 ([facility]) Body height 63.5 [in_us] 63.5 [in_us] eCW1 ([facility]) Body weight Measured 197.2 [lb_av] 197.2 [lb_av ] eCW1 ([facility]) Diastolic blood pressure 60 mm[Hg] 60 mm[Hg] eCW1 ([facility]) Systolic blood pressure 110 mm[Hg] 110 mm[Hg] e CW1 ([facility]) Body temperature 97.8 [degF] 97.8 [degF] eCW1 ( [facility]) Respiratory rate 17 /min 17 /min eCW1 (Counts include 234 beds at the [facility]) Heart rate 86 /min 86 /min eCW1 ([facility]) Body mass index (BMI) [Ratio] 39.79 kg/m2 39.79 kg/m2 eCW1 ([facility]) Body height 63.5 [in_us] 63.5 [in_us] eCW1 ([facility]) Body weight Measured 228.2 [lb_av] 228.2 [lb_av ] eCW1 ([facility]) Diastolic blood pressure 60 mm[Hg] 60 mm[Hg] eCW1 ([facility]) Systolic blood pressure 118 mm[Hg] 118 mm[Hg] e CW1 ([facility]) Body temperature 99.9 [degF] 99.9 [degF] eCW1 ( [facility]) Respiratory rate 20 /min 20 /min eCW1 (Counts include 234 beds at the [facility]) Heart rate 100 /min 100 /min eCW1 ([facility]) Body mass index (BMI) [Ratio] 40.52 kg/m2 40.52 kg/m2 eCW1 ([facility]) Body height 63.5 [in_us] 63.5 [in_us] eCW1 ([facility]) Body weight Measured 232.4 [lb_av] 232.4 [lb_av ] eCW1 ([facility]) Diastolic blood pressure 62 mm[Hg] 62 mm[Hg] eCW1 ([facility]) Systolic blood pressure 120 mm[Hg] 120 mm[Hg] e CW1 ([facility]) Body temperature 98.4 [degF] 98.4 [degF] eCW1 ( [facility]) Respiratory rate 18 /min 18 /min eCW1 (Counts include 234 beds at the [facility]) Heart rate 104 /min 104 /min eCW1 ([facility]) Body mass index (BMI) [Ratio] 37.83 kg/m2 37.83 kg/m2 eCW1 ([facility]) Body height 63.5 [in_us] 63.5 [in_us] eCW1 ([facility]) Body weight Measured 217.0 [lb_av] 217.0 [lb_av ] eCW1 ([facility]) Body weight 214.6 [lb_av] 214.6 [lb_av] BILLIE ([facility] ) Systolic blood pressure 132 mm[Hg] 132 mm[Hg] A THENA ([facility] ) Body mass index (BMI) [Ratio] 37.4 kg/m2 37.4 k g/m2 BILLIE ([facility] ) Body height 63.5 [in_i] 63.5 [in_i] BILLIE ([facility]) Diastolic blood pressure 70 mm[Hg] 70 mm[Hg] BILLIE ([facility] ) ID Date Data Source [id number] 08/14/2020 04:54:22 AM T [facility] Name Value Range Interpretation Code Description Data Source(s) WEIGHT RECORDED 199 lb 199 lb [facility] Body height Measured 62.[address] [facility] Patient Treatment Plan of Care Planned Activity Planned Date Details Description Data Source (s) Oxybutynin chloride 5 MG Oral Tablet 12/26/2020 12:00:00 AM EST eCW1 ([facility]) Miconazole Nitrate 200 MG Vaginal Suppository 12/26/2020 12:00:00 A M EST eCW1 ([facility]) Oxybutynin chloride 5 MG Oral Tablet 12/26/2020 12:00:00 AM EST eCW1 ([facility]) Miconazole Nitrate 200 MG Vaginal Suppository 12/26/2020 12:00:00 A M EST eCW1 ([facility]) Oxybutynin chloride 5 MG Oral Tablet 12/26/2020 12:00:00 AM EST eCW1 ([facility]) Miconazole Nitrate 200 MG Vaginal Suppository 12/26/2020 12:00:00 A M EST eCW1 ([facility]) Spironolactone 100 MG Oral Tablet 12/20/2020 12:00:00 AM [facility] gabapentin 100 MG Oral Capsule 12/20/2020 12:00:00 AM [facility] Melatonin 1 MG Oral Capsule 12/13/2020 12:00:00 AM EST eCW1 ([facility]) Melatonin 1 MG Oral Capsule 12/13/2020 12:00:00 AM EST eCW1 ([facility]) gabapentin 100 MG Oral Capsule 11/22/2020 12:00:00 AM EST eCW1 ([facility]) gabapentin 100 MG Oral Capsule 11/22/2020 12:00:00 AM EST eCW1 ([facility]) gabapentin 100 MG Oral Capsule 11/22/2020 12:00:00 AM EST eCW1 ([facility]) gabapentin 100 MG Oral Capsule 11/22/2020 12:00:00 AM EST eCW1 ([facility]) gabapentin 100 MG Oral Capsule 11/22/2020 12:00:00 AM EST eCW1 ([facility]) gabapentin 100 MG Oral Capsule 11/22/2020 12:00:00 AM EST eCW1 ([facility]) gabapentin 100 MG Oral Capsule 11/22/2020 12:00:00 AM EST eCW1 ([facility]) gabapentin 100 MG Oral Capsule 11/22/2020 12:00:00 AM EST eCW1 ([facility]) Potassium Chloride 10 MEQ Extended Release Oral Tablet 09/21/2020 12:00:00 AM [facility] Levofloxacin 500 MG Oral Tablet 08/08/2020 12:00:00 AM [facility] Fluconazole 100 MG Oral Tablet [Diflucan] 05/16/2020 12:00:00 AM ED T eCW1 ([facility]) Fluconazole 100 MG Oral Tablet [Diflucan] 05/16/2020 12:00:00 AM ED T eCW1 ([facility]) EQL Miconazole 3 200 & 2 MG (9GM) 05/16/2020 12:00:00 AM EDT eCW1 ([facility]) Fluconazole 100 MG Oral Tablet [Diflucan] 05/16/2020 12:00:00 AM ED T eCW1 ([facility]) EQL Miconazole 3 200 & 2 MG (9GM) 05/16/2020 12:00:00 AM EDT eCW1 ([facility]) Fluconazole 100 MG Oral Tablet [Diflucan] 05/16/2020 12:00:00 AM ED T eCW1 ([facility]) EQL Miconazole 3 200 & 2 MG (9GM) 05/16/2020 12:00:00 AM EDT eCW1 ([facility]) Fluconazole 100 MG Oral Tablet [Diflucan] 05/16/2020 12:00:00 AM ED T eCW1 ([facility]) EQL Miconazole 3 200 & 2 MG (9GM) 05/16/2020 12:00:00 AM EDT eCW1 ([facility]) Fluconazole 100 MG Oral Tablet [Diflucan] 05/16/2020 12:00:00 AM ED T eCW1 ([facility]) EQL Miconazole 3 200 & 2 MG (9GM) 05/16/2020 12:00:00 AM EDT eCW1 ([facility]) Fluconazole 100 MG Oral Tablet [Diflucan] 05/16/2020 12:00:00 AM ED T eCW1 ([facility]) EQL Miconazole 3 200 & 2 MG (9GM) 05/16/2020 12:00:00 AM EDT eCW1 ([facility]) EQL Miconazole 3 200 & 2 MG (9GM) 05/16/2020 12:00:00 AM EDT eCW1 ([facility]) 168 HR Buprenorphine 0.005 MG/HR Transdermal Patch [Bu Trans] 05/05/2020 12:00:00 AM EDT eCW1 ([facility]) 168 HR Buprenorphine 0.005 MG/HR Transdermal Patch [Bu Trans] 05/05/2020 12:00:00 AM EDT eCW1 ([facility]) 168 HR Buprenorphine 0.005 MG/HR Transdermal Patch [Bu Trans] 05/05/2020 12:00:00 AM EDT eCW1 ([facility]) 168 HR Buprenorphine 0.005 MG/HR Transdermal Patch [Bu Trans] 05/05/2020 12:00:00 AM EDT eCW1 ([facility]) 168 HR Buprenorphine 0.005 MG/HR Transdermal Patch [Bu Trans] 05/05/2020 12:00:00 AM EDT eCW1 ([facility]) 168 HR Buprenorphine 0.005 MG/HR Transdermal Patch [Bu Trans] 05/05/2020 12:00:00 AM EDT eCW1 ([facility]) 168 HR Buprenorphine 0.005 MG/HR Transdermal Patch [Bu Trans] 05/05/2020 12:00:00 AM EDT eCW1 ([facility]) 168 HR Buprenorphine 0.005 MG/HR Transdermal Patch [Bu Trans] 05/05/2020 12:00:00 AM EDT eCW1 ([facility]) 168 HR Buprenorphine 0.005 MG/HR Transdermal Patch [Bu Trans] 05/05/2020 12:00:00 AM EDT eCW1 ([facility]) linezolid 600 MG Oral Tablet 04/20/2020 12:00:00 AM EDT eCW1 ([facility]) linezolid 600 MG Oral Tablet 04/20/2020 12:00:00 AM EDT eCW1 ([facility]) linezolid 600 MG Oral Tablet 04/20/2020 12:00:00 AM EDT eCW1 ([facility]) Spironolactone 50 MG Oral Tablet 02/08/2020 12:00:00 AM EDT eCW1 ([facility]) Spironolactone 50 MG Oral Tablet 02/08/2020 12:00:00 AM EDT eCW1 ([facility]) Spironolactone 50 MG Oral Tablet 02/08/2020 12:00:00 AM EDT eCW1 ([facility]) Spironolactone 100 MG Oral Tablet 02/08/2020 12:00:00 AM EDT eCW1 ([facility]) Spironolactone 25 MG Oral Tablet 01/19/2020 12:00:00 AM EDT eCW1 ([facility]) Potassium Chloride 10 MEQ Extended Release Oral Tablet 01/19/2020 12:00:00 AM EDT eCW1 ([facility]) Potassium Chloride 10 MEQ Extended Release Oral Tablet 01/19/2020 12:00:00 AM EDT eCW1 ([facility]) Spironolactone 100 MG Oral Tablet 01/19/2020 12:00:00 AM EDT eCW1 ([facility]) Potassium Chloride 10 MEQ Extended Release Oral Tablet 01/19/2020 12:00:00 AM EDT eCW1 ([facility]) Spironolactone 100 MG Oral Tablet 01/19/2020 12:00:00 AM EDT eCW1 ([facility]) Loratadine 10 MG Oral Tablet 01/14/2020 12:00:00 AM EST eCW1 ([facility]) Methocarbamol 750 MG Oral Tablet 01/12/2020 12:00:00 AM EST eCW1 ([facility]) Methocarbamol 500 MG Oral Tablet 01/12/2020 12:00:00 AM EST eCW1 ([facility]) Lidocaine Hydrochloride 40 MG/ML Mucous Membrane Topic al Solution 01/12/2020 12:00:00 AM EST eCW1 ([facility]) Methocarbamol 500 MG Oral Tablet 01/12/2020 12:00:00 AM EST eCW1 ([facility]) Methocarbamol 500 MG Oral Tablet 01/12/2020 12:00:00 AM EST eCW1 ([facility]) Prednisone 20 MG Oral Tablet 12/31/2019 12:00:00 AM EST eCW1 ([facility]) Methocarbamol 500 MG Oral Tablet 12/09/2019 12:00:00 AM EST eCW1 ([facility]) Methocarbamol 500 MG Oral Tablet 12/09/2019 12:00:00 AM EST eCW1 ([facility]) Methocarbamol 500 MG Oral Tablet 12/09/2019 12:00:00 AM EST eCW1 ([facility]) buspirone hydrochloride 30 MG Oral Tablet 12/09/2019 12:00:00 AM ES T eCW1 ([facility]) Methocarbamol 500 MG Oral Tablet 12/09/2019 12:00:00 AM EST eCW1 ([facility]) buspirone hydrochloride 30 MG Oral Tablet 12/09/2019 12:00:00 AM ES T eCW1 ([facility]) Acetaminophen 325 MG / Oxycodone Hydrochloride 7.5 MG Oral Tablet BILLIE ([facility]) Oxycodone Hydrochloride 5 MG Oral Tablet BILLIE ([facility])
[2021-01-03] MEDS ORDERED: LACTULOSE 20 GM/30 ML SYRUP UD PO ONE (17:00)
--- NOTE | 2021-01-03 17:03 | ECGEPIP ---
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
[2021-01-03 17:04] LABS: OSMOLALITY SERUM 294 MOSM/KG (275-295)
[2021-01-03 17:10] LABS: ALBUMIN 3.3 GM/DL (3.2-5.2); ALT/SGPT 28 U/L (12-78); BILIRUBIN,DIRECT 0.4 MG/DL (0.0-0.2); BILIRUBIN,TOTAL 1.3 MG/DL (0.2-1.0); BLOOD UREA NITROGEN 19 MG/DL (7-18); CALCIUM LEVEL 9.5 MG/DL (8.5-10.1); CARBON DIOXIDE LEVEL 23 MEQ/L (21-32); CHLORIDE LEVEL 105 MEQ/L (98-107); CK-MB VALUE MASS 1.6 NG/ML (<3.6); CPK CREATINE PHOSPHOKINASE 57 U/L (26-192); GLOMERULAR FILTRATION RATE 44.6 (>51); GLUCOSE, FASTING 184 MG/DL (70-100); MB/CK RELATIVE INDEX 2.81 (< OR =4); POTASSIUM SERUM 4.6 MEQ/L (3.5-5.1); SODIUM LEVEL 138 MEQ/L (136-145); TOTAL PROTEIN 6.9 GM/DL (6.4-8.2); TROPONIN I < 0.02 NG/ML (< 0.10)
[2021-01-03] MEDS ORDERED: GLUCAGON INJ 1MG VIAL SC PRN (18:00)
[2021-01-03] MEDS ORDERED: LACTULOSE 20 GM/30 ML SYRUP UD PO SCH (18:00)
[2021-01-03] MEDS ORDERED: GLUCOSE 4GM CHEW TABLET PO PRN (18:00)
[2021-01-03] MEDS ORDERED: DEXTROSE 50% 50 ML SYRINGE IV PRN (18:00)
[2021-01-03] MEDS ORDERED: RIZATRIPTAN BENZOATE 10 MG TAB PO PRN (18:00)
--- OUTSIDE RECORDS SUMMARY | 2021-01-03 18:04 | CCD ---
Author Author [facility] Organization [facility] Address Unknown Phone Unavailable Care Team Providers Care Liquor Inspector Name Role Phone Melissa Fabian Unavailable Unavailable [...] Unavailable Caren, Gissel MD Unavailable Unavailable Caren, Igssel MD Unavailable Unavailable Caren, Gissel MD Unavailable [...] Britni Beck MD Unavailable Unavailable Kiran, Britni Moralse MD Unavailable Unavailable Kiran, Britni Morales MD Unavailable Unavailable Kiran, E Andrew CAMACHO Unavailable Unavailable Kiran, E Andrwe CAMACHO Unavailable Unavailable Kiran, E Andrew CAMACHO [...] Unavailable Kiran, Britni Morales MD Unavailable Unavailable Ikran, Britni Morales MD Unavailable Unavailable Kiran, Britni [...] F Jaycob Unavailable Unavailable OLEA, R JAMES PLASTER MACHINE TENDER Unavailable Unavailable OLEA, R JAMES PLASTER MACHINE TENDER Unavailable Unavailable OLEA, R JAMES PLASTER MACHINE TENDER Unavailable Unavailable OLEA, R JAMES PLASTER MACHINE TENDER Unavailable Unavailable OLEA, R JAMES PLASTER MACHINE TENDER Unavailable Unavailable OLEA, R JAMES PLASTER MACHINE TENDER Unavailable Unavailable OLEA, R JAMES PLASTER MACHINE TENDER Unavailable Unavailable OLEA, R JAMES PLASTER MACHINE TENDER Unavailable Unavailable OLEA, R JAMES PLASTER MACHINE TENDER Unavailable Unavailable OLEA, R JAMES PLASTER MACHINE TENDER Unavailable Unavailable OLEA, R JAMES PLASTER MACHINE TENDER Unavailable Unavailable OLEA, R JAMES PLASTER MACHINE TENDER Unavailable Unavailable OLEA, R JAMES PLASTER MACHINE TENDER Unavailable Unavailable OLEA, R JAMES PLASTER MACHINE TENDER Unavailable Unavailable OLEA, R JAMES PLASTER MACHINE TENDER Unavailable Unavailable OLEA, R JAMES PLASTER MACHINE TENDER Unavailable Unavailable OLEA, R JAMES PLASTER MACHINE TENDER Unavailable Unavailable OLEA, R JAMES PLASTER MACHINE TENDER Unavailable Unavailable OLEA, R JAMES PLASTER MACHINE TENDER Unavailable Unavailable OLEA, R JAMES PLASTER MACHINE TENDER Unavailable Unavailable OLEA, R JAMES PLASTER MACHINE TENDER Unavailable Unavailable OLEA, R JAMES PLASTER MACHINE TENDER Unavailable Unavailable OLEA, R JAMES PLASTER MACHINE TENDER Unavailable Unavailable OLEA, R JAMES PLASTER MACHINE TENDER Unavailable Unavailable OLEA, R JAMES PLASTER MACHINE TENDER Unavailable Unavailable OLEA, R JAMES PLASTER MACHINE TENDER Unavailable Unavailable OLEA, R JAMES PLASTER MACHINE TENDER Unavailable Unavailable OLEA, R JAEMS PLASTER MACHINE TENDER Unavailable Unavailable OLEA, R JAMES PLASTER MACHINE TENDER Unavailable Unavailable OLEA, R JAMES PLASTER MACHINE TENDER Unavailable Unavailable OLEA, R JAMES PLASTER MACHINE TENDER Unavailable Unavailable OLEA, R JAMES PLASTER MACHINE TENDER Unavailable Unavailable OLEA, R JAMES PLASTER MACHINE TENDER Unavailable Unavailable OLEA, R JAMES PLASTER MACHINE TENDER Unavailable Unavailable OLEA, R JAMES PLASTER MACHINE TENDER Unavailable Unavailable OLEA, R JAMES PLASTER MACHINE TENDER Unavailable Unavailable OLEA, R JAMES PLASTER MACHINE TENDER Unavailable Unavailable OLEA, R JAMES PLASTER MACHINE TENDER Unavailable Unavailable OLEA, R JAMES PLASTER MACHINE TENDER Unavailable Unavailable OLEA, R JAMES PLASTER MACHINE TENDER Unavailable Unavailable OLEA, R JAMES PLASTER MACHINE TENDER Unavailable Unavailable JOEY, M LIU DO Unavailable [...] is protected by Article 27-F of the [facility] Public Health law. If you continue you may have access to information: Regarding HIV / AIDS; Provided by facilities licensed or operated by the [facility] Office of Mental Health; or Provided by the [facility] Office for People With Developmental Disabilities. If such information is present, then the following [facility] mandated warning applies: This information has [...] law may result in a fine or chcf sentence or both. A general authorization for the release of medical or other information is NOT sufficient authorization for further disc losure. Allergies and Adverse Reactions Type Description Substance Reaction Status Data Source(s ) Drug allergy Diflucan Fluconazole hives Active eCW1 ([facility]) Drug allergy Cipro Ciprofloxacin Anaphylaxis Active eCW1 ([facility]placed by [facility]) Family History Family Member Name Family Member Gender Family Member Status Date o f Status Description Data Source(s) Unknown Male Problem MEDENT ([facility]) Encounters Encounter Providers Location Date Indications Data Source(s ) Outpatient Attender: Caesar Vale MD 09/29/2021 12:00:00 AM [facility] Outpatient Attender: Caesar Vale MD 01/20/2021 12:00:00 AM [facility] Outpatient Referrer: Caesar Vale MD 01/05/2021 12:00:00 AM [facility] Unknown [address] [facility] [address] 12/28/2020 12:00:00 AM EST eCW1 ([facility]) Unknown [address] [facility] [address] 12/27/2020 12:00:00 AM EST eCW1 ([facility]) [place] [address] [facility] [address] 12/27/2020 12:00:00 AM EST eCW1 ([facility]) Outpatient Referrer: Caesar Vale MD 12/23/2020 11:06:52 AM EST Arthrodesis status [facility] Arthrodesis status Outpatient Attender: Caesar Vale MD [id number] 12/23/2020 12:00:00 AM EST Arthrodesis status [facility] Arthrodesis status Outpatient Referrer: Caesar Vale MD 12/23/2020 12:00:00 AM EST Spinal stenosis, cervical region [facility] Spinal stenosis, cervical region [place] [address] [facility] [place] [address] 12/19/2020 12:00:00 AM EST eCW1 ([facility]) [place] [address] [facility] [place] [address] 12/13/2020 12:00:00 AM EST eCW1 ([facility]) [place] [address] [facility] [address] 11/30/2020 12:00:00 AM EST eCW1 ([facility]) [place] [address] [facility] [address] 11/22/2020 12:00:00 AM EST eCW1 ([facility]) [place] [address] [facility] [address] 11/21/2020 12:00:00 AM EST eCW1 ([facility]) [place] [address] [facility] [address] 11/21/2020 12:00:00 AM EST eCW1 ([facility]) [place] [address] [facility] [address] 11/10/2020 12:00:00 AM EST eCW1 ([facility]) [place] [address] [facility] [place] [address] 11/01/2020 12:00:00 AM EST eCW1 ([facility]) Unknown [address] [facility] [address] 10/28/2020 12:00:00 AM EST eCW1 ([facility]) Unknown [address] [facility] [place] [address] 10/25/2020 12:00:00 AM EST [facility]CW1 [facility]) Unknown [address] [facility] [address] 10/24/2020 12:00:00 AM EST eCW1 ([facility]) Office Visit, Est Pt., Level 4 [address] [place] [address] 10/20/2020 12:00:00 AM EST [facility] Unknown [address] [facility] [address] 10/17/2020 12:00:00 AM EST eCW1 ([facility]) Outpatient Attender: JAMES OLEA NP 10/13/2020 12:00:0 0 AM [facility] Office Visit Attender: Gissel Fabian MD Main office - [place] 10/10/2020 10:00:00 AM EST MEDENT ([facility], ) Outpatient Attender: LIU COOK DO [facility] Med at [place] 09/21/2020 12:15:00 PM EST MEDENT ([facility]) Outpatient Attender: Caesar Vale MDReferrer: Caesar Vale MD [id number] 09/16/2020 12:00:00 AM [facility] Unknown [address] [facility] [address] 09/12/2020 12:00:00 AM EST eCW1 ([facility]) Unknown [address] [facility] [address] 09/06/2020 12:00:00 AM EDT eCW1 ([facility]) Unknown [address] [facility] [address] 09/01/2020 12:00:00 AM EDT eCW1 ([facility]) Outpatient Referrer: Caesar Vale MD 08/30/2020 12:00:00 AM EDT Spinal stenosis, cervical region [facility] Spinal stenosis, cervical region Outpatient Attender: JAMES OLEA NPReferrer: Caesar Arana [id number] 08/26/2020 12:00:00 AM EDT Anesthesia of skin [facility] Anesthesia of skin Unknown [address] [facility] [address] 08/18/2020 12:00:00 AM EDT eCW1 ([facility]) Outpatient Attender: Caesar Vale MD 08/15/2020 12:00:00 AM ED [facility] Unknown [address] [facility] [address] 08/12/2020 12:00:00 AM EDT eCW1 ([facility]) Unknown [address] [facility] [address] 08/12/2020 12:00:00 AM EDT eCW1 ([facility]) Outpatient Attender: JAMES LENNONeferrer: Caesar Arana 08/09/2020 12:00:00 AM [facility] Outpatient Attender: Caesar Vale MD [id number] 08/01/2020 12:00:00 AM E [facility] Outpatient Referrer: Caesar Vale MD 08/01/2020 12:00:00 AM EDT Spinal stenosis, cervical region [facility] Spinal stenosis, cervical region [facility] [address] [facility] [address] 07/29/2020 12:00:00 AM EDT eCW1 ([facility]) Outpatient Attender: Caesar Vale MD 07/11/2020 12:00:00 AM [facility] Outpatient Attender: Caesar Vale MD 07/01/2020 12:00:00 AM ED [facility] Outpatient Attender: EL CHRISTIANSENReferrer: Caesar Vale MD [id number] 06/07/2020 12:00:00 AM EDT Other spondylosis with myelopathy, cervical region [facility] Other spondylosis with myelopathy, cervi santi region Unknown [address] [facility] [address] 05/30/2020 12:00:00 AM EDT eCW1 ([facility]) Outpatient Attender: LIU COOK DO [facility] [place] 05/25/2020 01:00:00 PM EDT [facility] ([facility]) Unknown [address] [facility] [address] 05/25/2020 12:00:00 AM EDT eCW1 ([facility]) Unknown [address] [facility] [address] 05/24/2020 12:00:00 AM EDT eCW1 ([facility]) [facility] [address] [facility] [address] 05/05/2020 12:00:00 AM EDT eCW1 ([facility]) Unknown [address] [facility] [address] 04/28/2020 12:00:00 AM EDT eCW1 ([facility]) Outpatient [address] [facility] [address] 04/27/2020 12:00:00 AM EDT eCW1 ([facility]) Unknown [address] [facility] [address] 04/26/2020 12:00:00 AM EDT eCW1 ([facility]) ( GYNANN) [facility] Yearly EDUCATION REPORTER Exam [address] [place] [address] 04/25/2020 12:00:00 AM EDT eCW1 ([facility]) Unknown [address] [facility] [address] 04/22/2020 12:00:00 AM EDT eCW1 ([facility]) Unknown [address] [facility] [address] 04/20/2020 12:00:00 AM EDT eCW1 ([facility]) [place] [address] [facility] [address] 04/20/2020 12:00:00 AM EDT eCW1 ([facility]) Unknown [address] [facility] [address] 04/18/2020 12:00:00 AM EDT eCW1 ([facility]) Unknown [address] [facility] [address] 04/12/2020 12:00:00 AM EDT eCW1 ([facility]) [facility] [address] [place] [address], [place] [address] 03/30/2020 12:00:00 AM EDT eCW1 ([facility]) [facility] [address] [place] [address], [place] [address] 03/29/2020 12:00:00 AM EDT eCW1 ([facility] [place]) [facility] [address] [place] [address], [place] [address] 03/28/2020 12:00:00 AM EDT eCW1 ([facility] [place]) [address] [address] 03/24/2020 12:00:00 AM EDT eCW1 ([facility] [place]) Outpatient Referrer: Gissel Fabian MD 03/22/2020 06:05:00 AM EDT [facility] [address] [address] 03/18/2020 12:00:00 AM EDT eCW1 ([facility] [place]) [address] [address] 03/17/2020 12:00:00 AM EDT eCW1 ([facility] [place]) [address] [address] 03/16/2020 12:00:00 AM EDT eCW1 ([facility] [address] [address] 03/16/2020 12:00:00 AM EDT eCW1 ([facility] [place]) [address] [address] 03/15/2020 12:00:00 AM EDT eCW1 ([facility]) [address] [address] 03/15/2020 12:00:00 AM EDT eCW1 ([facility]) [facility] [address] [facility] [address] 03/15/2020 12:00:00 AM EDT eCW1 ([facility]) [facility] [address] [facility] [address] 03/09/2020 12:00:00 AM EDT eCW1 ([facility]) [facility] [address] [place] [address], [place] [address] 03/01/2020 12:00:00 AM EDT eCW1 ([facility] [place]) [facility] [address] [place] [address], [place] [address] 03/01/2020 12:00:00 AM EDT eCW1 ([facility] [place]) [facility] [address] [place] [address], [place] [address] 02/22/2020 12:00:00 AM EDT eCW1 ([facility] [place]) Outpatient Referrer: Gissel Fabian MD 02/17/2020 05:58:00 AM EDT [facility] [address] [address] 02/17/2020 12:00:00 AM EDT eCW1 ([facility] [place]) [address] [address] 02/17/2020 12:00:00 AM EDT eCW1 ([facility]) Unknown [address] [facility] [address] 02/16/2020 12:00:00 AM EDT eCW1 ([facility]) Unknown [address] [facility] [address] 02/15/2020 12:00:00 AM EDT eCW1 ([facility] [place]) [address] [address] 02/09/2020 12:00:00 AM EDT eCW1 ([facility] [place]) [address] [address] 02/08/2020 12:00:00 AM EDT eCW1 ([facility]) [facility] [address] [facility] [address] 02/08/2020 12:00:00 AM EDT eCW1 ([facility]) [facility] [address] [place] [address], [place] [address] 02/08/2020 12:00:00 AM EDT eCW1 ([facility]) Outpatient Attender: Jaycob Lucia 02/02/2020 12:00:00 AM [facility] [address] [place] [address], [place] [address] 02/01/2020 12:00:00 AM EDT eCW1 ([facility]) [facility] [address] [place] [address], [place] [address] 01/28/2020 12:00:00 AM EDT eCW1 ([facility]) [facility] [address] [place] [address], [place] [address] 01/28/2020 12:00:00 AM EDT eCW1 ([facility]) [facility] [address] [place] [address], [place] [address] 01/21/2020 12:00:00 AM EDT eCW1 ([facility]) [facility] [address] [place] [address], [place] [address] 01/20/2020 12:00:00 AM EDT eCW1 ([facility]) [facility] [address] [place] [address], [place] [address] 01/19/2020 12:00:00 AM EDT eCW1 ([facility]) [address] [address] 01/19/2020 12:00:00 AM EDT eCW1 ([facility]) Outpatient Attender: EL CHRISTIANSENReferrer: Andrew Beck MD 01/19/2020 12:00:[address] [place] [address] 01/15/2020 12:00:00 AM EST eCW1 ([facility]) [address] [address] 01/15/2020 12:00:00 AM EST eCW1 ([facility]) [address] [address] 01/13/2020 12:00:00 AM EST eCW1 ([facility]) [address] [address] 01/12/2020 12:00:00 AM EST eCW1 ([facility]) [address] [address] 01/05/2020 12:00:00 AM EST eCW1 ([facility]) [address] [address] 12/31/2019 12:00:00 AM EST eCW1 ([facility]) [address] [address] 12/31/2019 12:00:00 AM EST eCW1 ([facility]) [address] [address] 12/29/2019 12:00:00 AM EST eCW1 ([facility]) [address] [address] 12/28/2019 12:00:00 AM EST eCW1 ([facility]) [address] [address] 12/25/2019 12:00:00 AM EST eCW1 ([facility]) Outpatient Referrer: Gissel Fabian MD 12/20/2019 08:24:00 PM EST [facility] [address] [address] 12/18/2019 12:00:00 AM EST eCW1 ([facility]) [address] [address] 12/18/2019 12:00:00 AM EST eCW1 ([facility]) Outpatient Attender: Caesar Vale MD 12/18/2019 12:00:00 AM [facility] [address] [place] [address], [place] [address] 12/17/2019 12:00:00 AM EST eCW1 ([facility]) [address] [address] 12/15/2019 12:00:00 AM EST eCW1 ([facility]) [address] [address] 12/14/2019 12:00:00 AM EST eCW1 ([facility]) Outpatient Referrer: Gissel Fabian MD 12/11/2019 01:17:00 PM EST [facility] [address] [address] 12/11/2019 12:00:00 AM EST eCW1 ([facility]) [address] [address] 12/11/2019 12:00:00 AM EST eCW1 ([facility]) Outpatient Attender: Caesar Vale MD 12/11/2019 12:00:[address] [address] 12/10/2019 12:00:00 AM EST eCW1 ([facility]) [address] [address] 12/10/2019 12:00:00 AM EST eCW1 ([facility]) [address] [address] 12/10/2019 12:00:00 AM EST eCW1 ([facility]) [address] [address] 12/10/2019 12:00:00 AM EST eCW1 ([facility]) Outpatient Referrer: Gissel Fabian MD 12/08/2019 10:49:00 AM EST [facility] [address] [address] 12/03/2019 12:00:00 AM EST eCW1 ([facility]) Outpatient Attender: EL CHRISTIANSENReferrer: Andrew Beck MD 12/03/2019 12:00:00 AM EST [address] [address] 11/30/2019 12:00:00 AM EST eCW1 ([facility]) [address] [address] 11/27/2019 12:00:00 AM EST eCW1 ([facility]) Liu Cook, DO: [address] , [place] [address], Ph. Attender: LIU COOK DO [facility] - Main Schedule 11/19/2019 12:00:00 AM EST BILLIE ([facility]) [address] [address] 11/10/2019 12:00:00 AM EST eCW1 ([facility]) [address] [address] 11/09/2019 12:00:00 AM EST eCW1 ([facility]) Immunizations Vaccine Date Status Description Data Source(s) COVID-19 dose #2 given elsewhere Unspecified 12/26/2020 05:5 5:00 PM EST completed eCW1 ([facility]) COVID-19 dose #2 given elsewhere Unspecified 12/26/2020 05:5 5:00 PM EST completed eCW1 ([facility]) COVID-19 dose #1 given elsewhere Unspecified 12/05/2020 12:1 2:00 PM EST completed eCW1 ([facility]) COVID-19 dose #1 given elsewhere Unspecified 12/05/2020 12:1 2:00 PM EST completed eCW1 ([facility]) Imm: COVID-19 dose #1 given elsewhere Unspecified 12/05/2020 12:12:00 PM EST completed eCW1 ([facility]) influenza, recombinant, quadrIvalent,injectable, prese rvative free 10/20/2020 03:06:00 PM EST completed eCW1 ([facility]) influenza, recombinant, quadrIvalent,injectable, prese rvative free 10/20/2020 03:06:00 PM EST completed eCW1 ([facility]) influenza, recombinant, quadrIvalent,injectable, prese rvative free 10/20/2020 03:06:00 PM EST completed eCW1 ([facility]) influenza, recombinant, quadrIvalent,injectable, prese rvative free 10/20/2020 03:06:00 PM EST completed eCW1 ([facility]) influenza, recombinant, quadrIvalent,injectable, prese rvative free 10/20/2020 03:06:00 PM EST completed eCW1 ([facility]) influenza, recombinant, quadrIvalent,injectable, prese rvative free 10/20/2020 03:06:00 PM EST completed eCW1 ([facility]) influenza, recombinant, quadrIvalent,injectable, prese rvative free 10/20/2020 03:06:00 PM EST completed eCW1 ([facility]) influenza, recombinant, quadrIvalent,injectable, prese rvative free 10/20/2020 03:06:00 PM EST completed eCW1 ([facility]) influenza, recombinant, quadrIvalent,injectable, prese rvative free 10/20/2020 03:06:00 PM EST completed eCW1 ([facility]) influenza, recombinant, quadrIvalent,injectable, prese rvative free 10/20/2020 03:06:00 PM EST completed eCW1 ([facility]) influenza, recombinant, quadrIvalent,injectable, prese rvative free 10/20/2020 03:06:00 PM EST completed eCW1 ([facility]) influenza, recombinant, quadrIvalent,injectable, prese rvative free 10/20/2020 03:06:00 PM EST completed eCW1 ([facility]) influenza, recombinant, quadrIvalent,injectable, prese rvative free 10/20/2020 03:06:00 PM EST completed eCW1 ([facility]) influenza, recombinant, quadrIvalent,injectable, prese rvative free 10/20/2020 03:06:00 PM EST completed eCW1 ([facility]) influenza, recombinant, quadrIvalent,injectable, prese rvative free 10/20/2020 03:06:00 PM EST completed eCW1 ([facility]) Medications Medication Brand Name Start Date Product Form Dose Route Admi nistrative Instructions Pharmacy Instructions Status Indications Reaction Description Data Source(s) Miconazole Nitrate 200 MG Vaginal Suppository Miconazo le 3 200 MG Miconazole 3 200 MG 12/26/2020 12:00:00 AM EST 1.0 {suppository_at_bedtime} active Miconazole 3 200 MG eCW1 ([facility]) Miconazole Nitrate 200 MG Vaginal Suppository Miconazo le 3 200 MG Miconazole 3 200 MG 12/26/2020 12:00:00 AM EST 1.0 {suppository_at_bedtime} active Miconazole 3 200 MG eCW1 ([facility]) Oxybutynin chloride 5 MG Oral Tablet Oxybutynin Chlori de 5 MG Oxybutynin Chloride 5 MG 12/26/2020 12:00:00 AM EST acti ve Oxybutynin Chloride 5 MG [facility] Oxybutynin chloride 5 MG Oral Tablet Oxybutynin Chlori de 5 MG Oxybutynin Chloride 5 MG 12/26/2020 12:00:00 AM EST acti ve Oxybutynin Chloride 5 MG [facility]) Oxybutynin chloride 5 MG Oral Tablet Oxybutynin Chlori de 5 MG Oxybutynin Chloride 5 MG 12/26/2020 12:00:00 AM EST acti ve Oxybutynin Chloride 5 MG eCW1 [facility]) Miconazole Nitrate 200 MG Vaginal Suppository Miconazo le 3 200 MG Miconazole 3 200 MG 12/26/2020 12:00:00 AM EST 1.0 {suppository_at_bedtime} active Miconazole 3 200 MG eCW1 ([facility]) Spironolactone 100 MG Oral Tablet Spironolactone 100 M G Oral Tablet (ALDACTONE) Spironolactone 100 MG Oral Tablet (ALDACTONE) 12/20/2020 12:00:00 AM EST active [facility] gabapentin 100 MG Oral Capsule Gabapentin 100 MG Oral Capsule (NEURONTIN) Gabapentin 100 MG Oral Capsule (NEURONTIN) 12/20/2020 12:00:00 AM EST active [facility] Melatonin 1 MG Oral Capsule Melatonin 1 MG 12/13/2020 12:00:[address] 1.0 {capsule_at_bedtime_as_needed} active M elatonin 1 MG [facility] Melatonin 1 MG Oral Capsule Melatonin 1 MG 12/13/2020 12:00:[address] 1.0 {capsule_at_bedtime_as_needed} active M elatonin 1 MG [facility]CW1 [facility]) gabapentin 100 MG Oral Capsule Gabapentin 100 MG Gabapentin 100 MG 11/22/2020 12:00:00 AM EST 1.0 {capsule} active G abapentin 100 MG eCW1 [facility]) gabapentin 100 MG Oral Capsule Gabapentin 100 MG Gabapentin 100 MG 11/22/2020 12:00:00 AM EST 1.0 {capsule} active G abapentin 100 MG eCW1 [facility]) gabapentin 100 MG Oral Capsule Gabapentin 100 MG Gabapentin 100 MG 11/22/2020 12:00:00 AM EST 1.0 {capsule} active G abapentin 100 MG eCW1 ([facility]) gabapentin 100 MG Oral Capsule Gabapentin 100 MG Gabapentin 100 MG 11/22/2020 12:00:00 AM EST 1.0 {capsule} active G abapentin 100 MG eCW1 ([facility]) gabapentin 100 MG Oral Capsule Gabapentin 100 MG Gabapentin 100 MG 11/22/2020 12:00:00 AM EST 1.0 {capsule} active G abapentin 100 MG eCW1 ([facility]) gabapentin 100 MG Oral Capsule Gabapentin 100 MG Gabapentin 100 MG 11/22/2020 12:00:00 AM EST 1.0 {capsule} active G abapentin 100 MG eCW1 ([facility]) gabapentin 100 MG Oral Capsule Gabapentin 100 MG Gabapentin 100 MG 11/22/2020 12:00:00 AM EST 1.0 {capsule} active G abapentin 100 MG eCW1 ([facility]) gabapentin 100 MG Oral Capsule Gabapentin 100 MG Gabapentin 100 MG 11/22/2020 12:00:00 AM EST 1.0 {capsule} active G abapentin 100 MG eCW1 ([facility]) Potassium Chloride 10 MEQ Extended Relea se Oral Tablet Potassium Chloride ER 10 MEQ Oral Tablet Extended Release Potassium Chloride ER 10 MEQ Oral Tablet Extended Release 09/21/2020 12:00:00 AM EST active [facility] Levofloxacin 500 MG Oral Tablet levoFLOXacin 500 MG Or al Tablet (LEVAQUIN) levoFLOXacin 500 MG Oral Tablet (LEVAQUIN) 08/08/2020 12:00:00 AM EDT active [facility] Fluconazole 100 MG Oral Tablet [Diflucan] Diflucan 100 MG Di flucan 100 MG 05/16/2020 12:00:00 AM EDT 1.0 {tablet} active Diflucan 100 MG eCW1 ([facility]) EQL Miconazole 3 200 & 2 MG (9GM) EQL Miconazole 3 200 & 2 M G (9GM) 05/16/2020 12:00:00 AM EDT active [facility] nazole 3 200 & 2 MG (9GM) eCW1 [facility]) EQL Miconazole 3 200 & 2 MG (9GM) EQL Miconazole 3 200 & 2 M G (9GM) 05/16/2020 12:00:00 AM EDT active [facility] nazole 3 200 & 2 MG (9GM) eCW1 [facility]) Fluconazole 100 MG Oral Tablet [Diflucan] Diflucan 100 MG Di flucan 100 MG 05/16/2020 12:00:00 AM EDT 1.0 {tablet} active Diflucan 100 MG eCW1 ([facility]) Fluconazole 100 MG Oral Tablet [Diflucan] Diflucan 100 MG Di flucan 100 MG 05/16/2020 12:00:00 AM EDT 1.0 {tablet} active Diflucan 100 MG eCW1 ([facility]) EQL Miconazole 3 200 & 2 MG (9GM) EQL Miconazole 3 200 & 2 M G (9GM) 05/16/2020 12:00:00 AM EDT active [facility] nazole 3 200 & 2 MG (9GM) eCW1 [facility]) EQL Miconazole 3 200 & 2 MG (9GM) EQL Miconazole 3 200 & 2 M G (9GM) 05/16/2020 12:00:00 AM EDT active [facility] nazole 3 200 & 2 MG (9GM) eCW1 [facility]) EQL Miconazole 3 200 & 2 MG (9GM) EQL Miconazole 3 200 & 2 M G (9GM) 05/16/2020 12:00:00 AM EDT active [facility] nazole 3 200 & 2 MG (9GM) eCW1 [facility]) Fluconazole 100 MG Oral Tablet [Diflucan] Diflucan 100 MG Di flucan 100 MG 05/16/2020 12:00:00 AM EDT 1.0 {tablet} active Diflucan 100 MG eCW1 ([facility]) EQL Miconazole 3 200 & 2 MG (9GM) EQL Miconazole 3 200 & 2 M G (9GM) 05/16/2020 12:00:00 AM EDT active [facility] nazole 3 200 & 2 MG (9GM) eCW1 [facility]) Fluconazole 100 MG Oral Tablet [Diflucan] Diflucan 100 MG Di flucan 100 MG 05/16/2020 12:00:00 AM EDT 1.0 {tablet} active Diflucan 100 MG eCW1 ([facility]) Fluconazole 100 MG Oral Tablet [Diflucan] Diflucan 100 MG Di flucan 100 MG 05/16/2020 12:00:00 AM EDT 1.0 {tablet} active Diflucan 100 MG eCW1 ([facility]) EQL Miconazole 3 200 & 2 MG (9GM) EQL Miconazole 3 200 & 2 M G (9GM) 05/16/2020 12:00:00 AM EDT active [facility] nazole 3 200 & 2 MG (9GM) eCW1 [facility]) EQL Miconazole 3 200 & 2 MG (9GM) EQL Miconazole 3 200 & 2 M G (9GM) 05/16/2020 12:00:00 AM EDT active [facility] nazole 3 200 & 2 MG (9GM) eCW1 [facility]) EQL Miconazole 3 200 & 2 MG (9GM) EQL Miconazole 3 200 & 2 M G (9GM) 05/16/2020 12:00:00 AM EDT active [facility] nazole 3 200 & 2 MG (9GM) eCW1 [facility]) EQL Miconazole 3 200 & 2 MG (9GM) EQL Miconazole 3 200 & 2 M G (9GM) 05/16/2020 12:00:00 AM EDT active [facility] nazole 3 200 & 2 MG (9GM) eCW1 [facility]) EQL Miconazole 3 200 & 2 MG (9GM) EQL Miconazole 3 200 & 2 M G (9GM) 05/16/2020 12:00:00 AM EDT active [facility] nazole 3 200 & 2 MG (9GM) eCW1 [facility]) Fluconazole 100 MG Oral Tablet [Diflucan] Diflucan 100 MG Di flucan 100 MG 05/16/2020 12:00:00 AM EDT 1.0 {tablet} active Diflucan 100 MG eCW1 ([facility]) EQL Miconazole 3 200 & 2 MG (9GM) EQL Miconazole 3 200 & 2 M G (9GM) 05/16/2020 12:00:00 AM EDT active [facility] nazole 3 200 & 2 MG (9GM) eCW1 [facility]) EQL Miconazole 3 200 & 2 MG (9GM) EQL Miconazole 3 200 & 2 M G (9GM) 05/16/2020 12:00:00 AM EDT active [facility] nazole 3 200 & 2 MG (9GM) eCW1 [facility]) EQL Miconazole 3 200 & 2 MG (9GM) EQL Miconazole 3 200 & 2 M G (9GM) 05/16/2020 12:00:00 AM EDT active [facility] nazole 3 200 & 2 MG (9GM) eCW1 [facility]) Fluconazole 100 MG Oral Tablet [Diflucan] Diflucan 100 MG Di flucan 100 MG 05/16/2020 12:00:00 AM EDT 1.0 {tablet} active Diflucan 100 MG eCW1 ([facility]) EQL Miconazole 3 200 & 2 MG (9GM) EQL Miconazole 3 200 & 2 M G (9GM) 05/16/2020 12:00:00 AM EDT active [facility] nazole 3 200 & 2 MG (9GM) eCW1 [facility]) EQL Miconazole 3 200 & 2 MG (9GM) EQL Miconazole 3 200 & 2 M G (9GM) 05/16/2020 12:00:00 AM EDT active [facility] nazole 3 200 & 2 MG (9GM) eCW1 [facility]) EQL Miconazole 3 200 & 2 MG (9GM) EQL Miconazole 3 200 & 2 M G (9GM) 05/16/2020 12:00:00 AM EDT active [facility] nazole 3 200 & 2 MG (9GM) eCW1 [facility]) EQL Miconazole 3 200 & 2 MG (9GM) EQL Miconazole 3 200 & 2 M G (9GM) 05/16/2020 12:00:00 AM EDT active [facility] nazole 3 200 & 2 MG (9GM) eCW1 [facility]) EQL Miconazole 3 200 & 2 MG (9GM) EQL Miconazole 3 200 & 2 M G (9GM) 05/16/2020 12:00:00 AM EDT active [facility] nazole 3 200 & 2 MG (9GM) eCW1 [facility]) EQL Miconazole 3 200 & 2 MG (9GM) EQL Miconazole 3 200 & 2 M G (9GM) 05/16/2020 12:00:00 AM EDT active [facility] nazole 3 200 & 2 MG (9GM) eCW1 [facility]) Fluconazole 100 MG Oral Tablet [Diflucan] Diflucan 100 MG Di flucan 100 MG 05/16/2020 12:00:00 AM EDT 1.0 {tablet} active Diflucan 100 MG eCW1 ([facility]) EQL Miconazole 3 200 & 2 MG (9GM) EQL Miconazole 3 200 & 2 M G (9GM) 05/16/2020 12:00:00 AM EDT active [facility] nazole 3 200 & 2 MG (9GM) eCW1 [facility]) EQL Miconazole 3 200 & 2 MG (9GM) EQL Miconazole 3 200 & 2 M G (9GM) 05/16/2020 12:00:00 AM EDT active [facility] nazole 3 200 & 2 MG (9GM) eCW1 [facility]) Fluconazole 100 MG Oral Tablet [Diflucan] Diflucan 100 MG Di flucan 100 MG 05/16/2020 12:00:00 AM EDT 1.0 {tablet} active Diflucan 100 MG eCW1 ([facility]) EQL Miconazole 3 200 & 2 MG (9GM) EQL Miconazole 3 200 & 2 M G (9GM) 05/16/2020 12:00:00 AM EDT active [facility] nazole 3 200 & 2 MG (9GM) eCW1 [facility]) EQL Miconazole 3 200 & 2 MG (9GM) EQL Miconazole 3 200 & 2 M G (9GM) 05/16/2020 12:00:00 AM EDT active [facility] nazole 3 200 & 2 MG (9GM) eCW1 [facility]) EQL Miconazole 3 200 & 2 MG (9GM) EQL Miconazole 3 200 & 2 M G (9GM) 05/16/2020 12:00:00 AM EDT active [facility] nazole 3 200 & 2 MG (9GM) eCW1 [facility]) 168 HR Buprenorphine 0.005 MG/HR Transdermal Patch [Bu Trans] Butrans 5 MCG/HR Butrans 5 MCG/HR 05/05/2020 12:00:00 AM EDT 1.0 {patch_to_skin} active Butrans 5 MCG/HR eCW1 ([facility]) 168 HR Buprenorphine 0.005 MG/HR Transdermal Patch [Bu Trans] Butrans 5 MCG/HR Butrans 5 MCG/HR 05/05/2020 12:00:00 AM EDT 1.0 {patch_to_skin} active Butrans 5 MCG/HR eCW1 ([facility]) 168 HR Buprenorphine 0.005 MG/HR Transdermal Patch [Bu Trans] Butrans 5 MCG/HR Butrans 5 MCG/HR 05/05/2020 12:00:00 AM EDT 1.0 {patch_to_skin} active Butrans 5 MCG/HR eCW1 ([facility]) 168 HR Buprenorphine 0.005 MG/HR Transdermal Patch [Bu Trans] Butrans 5 MCG/HR Butrans 5 MCG/HR 05/05/2020 12:00:00 AM EDT 1.0 {patch_to_skin} active Butrans 5 MCG/HR eCW1 ([facility]) 168 HR Buprenorphine 0.005 MG/HR Transdermal Patch [Bu Trans] Butrans 5 MCG/HR Butrans 5 MCG/HR 05/05/2020 12:00:00 AM EDT 1.0 {patch_to_skin} active Butrans 5 MCG/HR eCW1 ([facility]) 168 HR Buprenorphine 0.005 MG/HR Transdermal Patch [Bu Trans] Butrans 5 MCG/HR Butrans 5 MCG/HR 05/05/2020 12:00:00 AM EDT 1.0 {patch_to_skin} active Butrans 5 MCG/HR eCW1 ([facility]) 168 HR Buprenorphine 0.005 MG/HR Transdermal Patch [Bu Trans] Butrans 5 MCG/HR Butrans 5 MCG/HR 05/05/2020 12:00:00 AM EDT 1.0 {patch_to_skin} active Butrans 5 MCG/HR eCW1 ([facility]) 168 HR Buprenorphine 0.005 MG/HR Transdermal Patch [Bu Trans] Butrans 5 MCG/HR Butrans 5 MCG/HR 05/05/2020 12:00:00 AM EDT 1.0 {patch_to_skin} active Butrans 5 MCG/HR eCW1 ([facility]) 168 HR Buprenorphine 0.005 MG/HR Transdermal Patch [Bu Trans] Butrans 5 MCG/HR Butrans 5 MCG/HR 05/05/2020 12:00:00 AM EDT 1.0 {patch_to_skin} active Butrans 5 MCG/HR eCW1 ([facility]) 168 HR Buprenorphine 0.005 MG/HR Transdermal Patch [Bu Trans] Butrans 5 MCG/HR Butrans 5 MCG/HR 05/05/2020 12:00:00 AM EDT 1.0 {patch_to_skin} active Butrans 5 MCG/HR eCW1 ([facility]) linezolid 600 MG Oral Tablet Linezolid 600 MG Linezolid 600 MG 04/20/2020 12:00:00 AM EDT 1.0 {tablet} active [facility] nezolid 600 MG eCW1 ([facility]) linezolid 600 MG Oral Tablet Linezolid 600 MG Linezolid 600 MG 04/20/2020 12:00:00 AM EDT 1.0 {tablet} active Li nezolid 600 MG eCW1 ([facility]) linezolid 600 MG Oral Tablet Linezolid 600 MG Linezolid 600 MG 04/20/2020 12:00:00 AM EDT 1.0 {tablet} active Li nezolid 600 MG eCW1 ([facility]) linezolid 600 MG Oral Tablet Linezolid 600 MG Linezolid 600 MG 04/20/2020 12:00:00 AM EDT 1.0 {tablet} active Li nezolid 600 MG eCW1 ([facility]) linezolid 600 MG Oral Tablet Linezolid 600 MG Linezolid 600 MG 04/20/2020 12:00:00 AM EDT 1.0 {tablet} active Li nezolid 600 MG eCW1 ([facility]) linezolid 600 MG Oral Tablet Linezolid 600 MG Linezolid 600 MG 04/20/2020 12:00:00 AM EDT 1.0 {tablet} active Li nezolid 600 MG eCW1 ([facility]) linezolid 600 MG Oral Tablet Linezolid 600 MG Linezolid 600 MG 04/20/2020 12:00:00 AM EDT 1.0 {tablet} active Li nezolid 600 MG eCW1 ([facility]) Spironolactone 50 MG Oral Tablet Spironolactone 50 MG 2019 12:00:00 AM EDT 1.0 {tablet} active Spironolact one 50 MG eCW1 ([facility]) Spironolactone 50 MG Oral Tablet Spironolactone 50 MG 2019 12:00:00 AM EDT 1.0 {tablet} active Spironolact one 50 MG eCW1 ([facility]) Spironolactone 50 MG Oral Tablet Spironolactone 50 MG 2019 12:00:00 AM EDT 1.0 {tablet} active Spironolact one 50 MG eCW1 ([facility]) Spironolactone 100 MG Oral Tablet Spironolactone 100 MG 01/11 12:00:00 AM EDT active 1 tablet eCW1 ([facility]) Spironolactone 50 MG Oral Tablet Spironolactone 50 MG 2019 12:00:00 AM EDT 1.0 {tablet} active Spironolact one 50 MG eCW1 ([facility]) Spironolactone 50 MG Oral Tablet Spironolactone 50 MG 2019 12:00:00 AM EDT 1.0 {tablet} active Spironolact one 50 MG eCW1 ([facility]) Spironolactone 100 MG Oral Tablet Spironolactone 100 MG 01/11 12:00:00 AM EDT active 1 tablet eCW1 ([facility]) Spironolactone 100 MG Oral Tablet Spironolactone 100 MG 01/11 12:00:00 AM EDT active 1 tablet eCW1 ([facility]) Spironolactone 50 MG Oral Tablet Spironolactone 50 MG 2019 12:00:00 AM EDT 1.0 {tablet} active Spironolact one 50 MG eCW1 ([facility]) Spironolactone 100 MG Oral Tablet Spironolactone 100 MG 01/11 12:00:00 AM EDT 1.0 {tablet} active Spironolact one 100 MG eCW1 ([facility]) Spironolactone 50 MG Oral Tablet Spironolactone 50 MG 2019 12:00:00 AM EDT 1.0 {tablet} active Spironolact one 50 MG eCW1 ([facility]) Spironolactone 50 MG Oral Tablet Spironolactone 50 MG 2019 12:00:00 AM EDT 1.0 {tablet} active Spironolact one 50 MG eCW1 ([facility]) Spironolactone 100 MG Oral Tablet Spironolactone 100 MG 01/11 12:00:00 AM EDT active 1 tablet eCW1 ([facility]) Spironolactone 50 MG Oral Tablet Spironolactone 50 MG 2019 12:00:00 AM EDT 1.0 {tablet} active Spironolact one 50 MG eCW1 ([facility]) Spironolactone 50 MG Oral Tablet Spironolactone 50 MG 2019 12:00:00 AM EDT 1.0 {tablet} active Spironolact one 50 MG eCW1 ([facility]) Spironolactone 50 MG Oral Tablet Spironolactone 50 MG 2019 12:00:00 AM EDT 1.0 {tablet} active Spironolact one 50 MG eCW1 ([facility]) Spironolactone 50 MG Oral Tablet Spironolactone 50 MG 2019 12:00:00 AM EDT 1.0 {tablet} active Spironolact one 50 MG eCW1 ([facility]) Spironolactone 50 MG Oral Tablet Spironolactone 50 MG 2019 12:00:00 AM EDT 1.0 {tablet} active Spironolact one 50 MG eCW1 ([facility]) Spironolactone 50 MG Oral Tablet Spironolactone 50 MG 2019 12:00:00 AM EDT 1.0 {tablet} active Spironolact one 50 MG eCW1 ([facility]) Spironolactone 100 MG Oral Tablet Spironolactone 100 MG 01/11 12:00:00 AM EDT 1.0 {tablet} active Spironolact one 100 MG eCW1 ([facility]) Spironolactone 50 MG Oral Tablet Spironolactone 50 MG 2019 12:00:00 AM EDT 1.0 {tablet} active Spironolact one 50 MG eCW1 ([facility]) Spironolactone 100 MG Oral Tablet Spironolactone 100 MG 01/11 12:00:00 AM EDT 1.0 {tablet} active Spironolact one 100 MG eCW1 ([facility]) Spironolactone 50 MG Oral Tablet Spironolactone 50 MG 2019 12:00:00 AM EDT 1.0 {tablet} active Spironolact one 50 MG eCW1 ([facility]) Spironolactone 50 MG Oral Tablet Spironolactone 50 MG 2019 12:00:00 AM EDT 1.0 {tablet} active Spironolact one 50 MG eCW1 ([facility]) Spironolactone 50 MG Oral Tablet Spironolactone 50 MG 2019 12:00:00 AM EDT 1.0 {tablet} active Spironolact one 50 MG eCW1 ([facility]) Spironolactone 50 MG Oral Tablet Spironolactone 50 MG 2019 12:00:00 AM EDT 1.0 {tablet} active Spironolact one 50 MG eCW1 ([facility]) Spironolactone 100 MG Oral Tablet Spironolactone 100 MG 01/11 12:00:00 AM EDT active 1 tablet eCW1 ([facility]) Spironolactone 100 MG Oral Tablet Spironolactone 100 MG 01/11 12:00:00 AM EDT 1.0 {tablet} active Spironolact one 100 MG eCW1 ([facility]) Spironolactone 100 MG Oral Tablet Spironolactone 100 MG 01/11 12:00:00 AM EDT 1.0 {tablet} active Spironolact one 100 MG eCW1 ([facility]) Spironolactone 100 MG Oral Tablet Spironolactone 100 MG 01/11 12:00:00 AM EDT 1.0 {tablet} active Spironolact one 100 MG eCW1 ([facility]) Spironolactone 50 MG Oral Tablet Spironolactone 50 MG 2019 12:00:00 AM EDT 1.0 {tablet} active Spironolact one 50 MG eCW1 ([facility]) Spironolactone 50 MG Oral Tablet Spironolactone 50 MG 2019 12:00:00 AM EDT 1.0 {tablet} active Spironolact one 50 MG eCW1 ([facility]) Spironolactone 100 MG Oral Tablet Spironolactone 100 MG 01/11 12:00:00 AM EDT 1.0 {tablet} active Spironolact one 100 MG eCW1 ([facility]) Spironolactone 50 MG Oral Tablet Spironolactone 50 MG 2019 12:00:00 AM EDT 1.0 {tablet} active Spironolact one 50 MG eCW1 ([facility]) Spironolactone 50 MG Oral Tablet Spironolactone 50 MG 2019 12:00:00 AM EDT 1.0 {tablet} active Spironolact one 50 MG eCW1 ([facility]) Spironolactone 50 MG Oral Tablet Spironolactone 50 MG 2019 12:00:00 AM EDT 1.0 {tablet} active Spironolact one 50 MG eCW1 ([facility]) Spironolactone 100 MG Oral Tablet Spironolactone 100 MG 01/11 12:00:00 AM EDT 1.0 {tablet} active Spironolact one 100 MG eCW1 ([facility]) Spironolactone 50 MG Oral Tablet Spironolactone 50 MG 2019 12:00:00 AM EDT 1.0 {tablet} active Spironolact one 50 MG eCW1 ([facility]) Potassium Chloride 10 MEQ Extended Relea se Oral Tablet Potassium Chloride ER 10 MEQ Potassium Chloride ER 10 MEQ 01/19/2020 12:00:00 AM EDT active 1 tablet with food eCW1 ([facility]) Spironolactone 100 MG Oral Tablet Spironolactone 100 MG 01/09 12:00:00 AM EDT active 1 tablet eCW1 ([facility]) Potassium Chloride 10 MEQ Extended Relea se Oral Tablet Potassium Chloride ER 10 MEQ Potassium Chloride ER 10 MEQ 01/19/2020 12:00:00 AM EDT active 1 tablet with food eCW1 ([facility]) Spironolactone 100 MG Oral Tablet Spironolactone 100 MG 01/09 12:00:00 AM EDT active 1 tablet eCW1 ([facility]) Potassium Chloride 10 MEQ Extended Relea se Oral Tablet Potassium Chloride ER 10 MEQ Potassium Chloride ER 10 MEQ 01/19/2020 12:00:00 AM EDT active 1 tablet with food eCW1 ([facility]) Potassium Chloride 10 MEQ Extended Relea se Oral Tablet Potassium Chloride ER 10 MEQ Potassium Chloride ER 10 MEQ 01/19/2020 12:00:00 AM EDT active 1 tablet with food eCW1 ([facility]) Spironolactone 100 MG Oral Tablet Spironolactone 100 MG 01/09 12:00:00 AM EDT active 1 tablet eCW1 ([facility]) Potassium Chloride 10 MEQ Extended Relea se Oral Tablet Potassium Chloride ER 10 MEQ Potassium Chloride ER 10 MEQ 01/19/2020 12:00:00 AM EDT active 1 tablet with food eCW1 ([facility]) Spironolactone 25 MG Oral Tablet Spironolactone 25 MG 2019 12:00:00 AM EDT active 1 tablet eCW1 ([facility]) Loratadine 10 MG Oral Tablet Loratadine 10 MG 01/14/2020 12:00:[address] active 1 tablet eCW1 ([facility]) Loratadine 10 MG Oral Tablet Loratadine 10 MG 01/14/2020 12:00:[address] active 1 tablet eCW1 ([facility]) Lidocaine Hydrochloride 40 MG/ML Topical Cream Lidocai ne HCl 4 % Lidocaine HCl 4 % 01/12/2020 12:00:00 AM EST active Lidocaine HCl 4 % eCW1 [facility]) Methocarbamol 500 MG Oral Tablet Methocarbamol 500 MG 2019 12:00:00 AM EST active 1 tablet eCW1 ([facility]) Lidocaine Hydrochloride 40 MG/ML Topical Cream Lidocai ne HCl 4 % Lidocaine HCl 4 % 01/12/2020 12:00:00 AM EST active Lidocaine HCl 4 % eCW1 ([facility]) Lidocaine Hydrochloride 40 MG/ML Topical Cream Lidocai ne HCl 4 % Lidocaine HCl 4 % 01/12/2020 12:00:00 AM EST active 1 application, to neck, back or legs prn eCW1 ([facility]) Methocarbamol 750 MG Oral Tablet Methocarbamol 750 MG 2019 12:00:00 AM EST active 1 tablet eCW1 ([facility]) Lidocaine Hydrochloride 40 MG/ML Mucous Membrane Topical Solution Lidocaine HCl 4 % Lidocaine HCl 4 % 01/12/2020 12:00:00 AM EST active 1 application, to neck, back or legs prn eCW1 ([facility]) Lidocaine Hydrochloride 40 MG/ML Topical Cream Lidocai ne HCl 4 % Lidocaine HCl 4 % 01/12/2020 12:00:00 AM EST active Lidocaine HCl 4 % eCW1 ([facility]) Lidocaine Hydrochloride 40 MG/ML Topical Cream Lidocai ne HCl 4 % Lidocaine HCl 4 % 01/12/2020 12:00:00 AM EST active Lidocaine HCl 4 % eCW1 ([facility]) Methocarbamol 500 MG Oral Tablet Methocarbamol 500 MG 2019 12:00:00 AM EST active 1 tablet eCW1 ([facility]) Lidocaine Hydrochloride 40 MG/ML Topical Cream Lidocai ne HCl 4 % Lidocaine HCl 4 % 01/12/2020 12:00:00 AM EST active 1 application, to neck, back or legs prn eCW1 ([facility]) Lidocaine Hydrochloride 40 MG/ML Topical Cream Lidocai ne HCl 4 % Lidocaine HCl 4 % 01/12/2020 12:00:00 AM EST active Lidocaine HCl 4 % eCW1 ([facility]) Lidocaine Hydrochloride 40 MG/ML Topical Cream Lidocai ne HCl 4 % Lidocaine HCl 4 % 01/12/2020 12:00:00 AM EST active Lidocaine HCl 4 % eCW1 ([facility]) Lidocaine Hydrochloride 40 MG/ML Topical Cream Lidocai ne HCl 4 % Lidocaine HCl 4 % 01/12/2020 12:00:00 AM EST active Lidocaine HCl 4 % eCW1 ([facility]) Lidocaine Hydrochloride 40 MG/ML Topical Cream Lidocai ne HCl 4 % Lidocaine HCl 4 % 01/12/2020 12:00:00 AM EST active Lidocaine HCl 4 % eCW1 ([facility]) Lidocaine Hydrochloride 40 MG/ML Topical Cream Lidocai ne HCl 4 % Lidocaine HCl 4 % 01/12/2020 12:00:00 AM EST active Lidocaine HCl 4 % eCW1 ([facility]) Lidocaine Hydrochloride 40 MG/ML Topical Cream Lidocai ne HCl 4 % Lidocaine HCl 4 % 01/12/2020 12:00:00 AM EST active Lidocaine HCl 4 % eCW1 ([facility]) Lidocaine Hydrochloride 40 MG/ML Topical Cream Lidocai ne HCl 4 % Lidocaine HCl 4 % 01/12/2020 12:00:00 AM EST active Lidocaine HCl 4 % eCW1 ([facility]) Lidocaine Hydrochloride 40 MG/ML Topical Cream Lidocai ne HCl 4 % Lidocaine HCl 4 % 01/12/2020 12:00:00 AM EST active Lidocaine HCl 4 % eCW1 ([facility]) Methocarbamol 750 MG Oral Tablet Methocarbamol 750 MG 2019 12:00:00 AM EST active 1 tablet eCW1 ([facility]) Lidocaine Hydrochloride 40 MG/ML Topical Cream Lidocai ne HCl 4 % Lidocaine HCl 4 % 01/12/2020 12:00:00 AM EST active Lidocaine HCl 4 % eCW1 ([facility]) Lidocaine Hydrochloride 40 MG/ML Topical Cream Lidocai ne HCl 4 % Lidocaine HCl 4 % 01/12/2020 12:00:00 AM EST active Lidocaine HCl 4 % eCW1 ([facility]) Lidocaine Hydrochloride 40 MG/ML Topical Cream Lidocai ne HCl 4 % Lidocaine HCl 4 % 01/12/2020 12:00:00 AM EST active Lidocaine HCl 4 % eCW1 ([facility]) Lidocaine Hydrochloride 40 MG/ML Topical Cream Lidocai ne HCl 4 % Lidocaine HCl 4 % 01/12/2020 12:00:00 AM EST active Lidocaine HCl 4 % eCW1 ([facility]) Lidocaine Hydrochloride 40 MG/ML Topical Cream Lidocai ne HCl 4 % Lidocaine HCl 4 % 01/12/2020 12:00:00 AM EST active Lidocaine HCl 4 % eCW1 ([facility]) Lidocaine Hydrochloride 40 MG/ML Topical Cream Lidocai ne HCl 4 % Lidocaine HCl 4 % 01/12/2020 12:00:00 AM EST active Lidocaine HCl 4 % eCW1 ([facility]) Lidocaine Hydrochloride 40 MG/ML Topical Cream Lidocai ne HCl 4 % Lidocaine HCl 4 % 01/12/2020 12:00:00 AM EST active Lidocaine HCl 4 % eCW1 ([facility]) Lidocaine Hydrochloride 40 MG/ML Topical Cream Lidocai ne HCl 4 % Lidocaine HCl 4 % 01/12/2020 12:00:00 AM EST active Lidocaine HCl 4 % eCW1 ([facility]) Lidocaine Hydrochloride 40 MG/ML Topical Cream Lidocai ne HCl 4 % Lidocaine HCl 4 % 01/12/2020 12:00:00 AM EST active Lidocaine HCl 4 % eCW1 ([facility]) Lidocaine Hydrochloride 40 MG/ML Topical Cream Lidocai ne HCl 4 % Lidocaine HCl 4 % 01/12/2020 12:00:00 AM EST active 1 application, to neck, back or legs prn [email or web address] ([facility]) Lidocaine Hydrochloride 40 MG/ML Topical Cream Lidocai ne HCl 4 % Lidocaine HCl 4 % 01/12/2020 12:00:00 AM EST active Lidocaine HCl 4 % [email or web address]) Lidocaine Hydrochloride 40 MG/ML Topical Cream Lidocai ne HCl 4 % Lidocaine HCl 4 % 01/12/2020 12:00:00 AM EST active Lidocaine HCl 4 % [email or web address] ([facility]) Lidocaine Hydrochloride 40 MG/ML Topical Cream Lidocai ne HCl 4 % Lidocaine HCl 4 % 01/12/2020 12:00:00 AM EST active 1 application, to neck, back or legs prn [facility] Lidocaine Hydrochloride 40 MG/ML Topical Cream Lidocai ne HCl 4 % Lidocaine HCl 4 % 01/12/2020 12:00:00 AM EST active Lidocaine HCl 4 % [facility]) Methocarbamol 500 MG Oral Tablet Methocarbamol 500 MG 2019 12:00:00 AM EST active 1 tablet eCW1 ([facility]) Lidocaine Hydrochloride 40 MG/ML Topical Cream Lidocai ne HCl 4 % Lidocaine HCl 4 % 01/12/2020 12:00:00 AM EST active 1 application, to neck, back or legs prn eCW1 [facility]) Lidocaine Hydrochloride 40 MG/ML Topical Cream Lidocai ne HCl 4 % Lidocaine HCl 4 % 01/12/2020 12:00:00 AM EST active Lidocaine HCl 4 % [facility]CW[facility]) Lidocaine Hydrochloride 40 MG/ML Topical Cream Lidocai ne HCl 4 % Lidocaine HCl 4 % 01/12/2020 12:00:00 AM EST active 1 application, to neck, back or legs prn eCW1 ([facility]) Lidocaine Hydrochloride 40 MG/ML Topical Cream Lidocai ne HCl 4 % Lidocaine HCl 4 % 01/12/2020 12:00:00 AM EST active Lidocaine HCl 4 % [facility]CW[facility]) Lidocaine Hydrochloride 40 MG/ML Topical Cream Lidocai ne HCl 4 % Lidocaine HCl 4 % 01/12/2020 12:00:00 AM EST active Lidocaine HCl 4 % [facility]CW[facility]) Lidocaine Hydrochloride 40 MG/ML Topical Cream Lidocai ne HCl 4 % Lidocaine HCl 4 % 01/12/2020 12:00:00 AM EST active Lidocaine HCl 4 % [facility]CW[facility]) Methocarbamol 500 MG Oral Tablet Methocarbamol 500 MG 2019 12:00:00 AM EST active 2 tablets eCW1 (Replaced by [facility]) Lidocaine Hydrochloride 40 MG/ML Topical Cream Lidocai ne HCl 4 % Lidocaine HCl 4 % 01/12/2020 12:00:00 AM EST active Lidocaine HCl 4 % [facility]CW[facility]) Lidocaine Hydrochloride 40 MG/ML Topical Cream Lidocai ne HCl 4 % Lidocaine HCl 4 % 01/12/2020 12:00:00 AM EST active Lidocaine HCl 4 % [facility]CW[facility]) Prednisone 20 MG Oral Tablet PredniSONE 20 MG PredniSONE 20 MG 12/31/2019 12:00:00 AM EST active 1 tablet [facility]CW1 [facility]) Cyanocobalamin 500 MCG UNK 12/09/2019 12:00:00 AM EST 1.0 {t ablet} suspended Cyanocobalamin 500 MCG eCW1 ([facility]) buspirone hydrochloride 30 MG Oral Tablet BusPIRone HC l 30 MG BusPIRone HCl 30 MG 12/09/2019 12:00:00 AM EST active 1 tablet [facility]CW1 [facility]) buspirone hydrochloride 30 MG Oral Tablet BusPIRone HC l 30 MG BusPIRone HCl 30 MG 12/09/2019 12:00:00 AM EST active 1 tablet [facility]CW1 [facility]) Cyanocobalamin 500 MCG UNK 12/09/2019 12:00:00 AM EST active 1 tablet eCW1 ([facility]) buspirone hydrochloride 30 MG Oral Tablet BusPIRone HC l 30 MG BusPIRone HCl 30 MG 12/09/2019 12:00:00 AM EST active 1 tablet [facility]CW1 [facility]) Cyanocobalamin 500 MCG UNK 12/09/2019 12:00:00 AM EST 1.0 {t ablet} active Cyanocobalamin 500 MCG eCW1 ([facility]) Cyanocobalamin 500 MCG UNK 12/09/2019 12:00:00 AM EST 1.0 {t ablet} active Cyanocobalamin 500 MCG eCW1 ([facility]) Cyanocobalamin 500 MCG UNK 12/09/2019 12:00:00 AM EST 1.0 {t ablet} active Cyanocobalamin 500 MCG eCW1 ([facility]) Cyanocobalamin 500 MCG UNK 12/09/2019 12:00:00 AM EST active 1 tablet [facility]CW1 [facility]) buspirone hydrochloride 30 MG Oral Tablet BusPIRone HC l 30 MG BusPIRone HCl 30 MG 12/09/2019 12:00:00 AM EST active 1 tablet eCW1 [facility]) Cyanocobalamin 500 MCG UNK 12/09/2019 12:00:00 AM EST 1.0 {t ablet} active Cyanocobalamin 500 MCG eCW1 ([facility]) Cyanocobalamin 500 MCG UNK 12/09/2019 12:00:00 AM EST 1.0 {t ablet} active Cyanocobalamin 500 MCG eCW1 ([facility]) buspirone hydrochloride 30 MG Oral Tablet BusPIRone HC l 30 MG BusPIRone HCl 30 MG 12/09/2019 12:00:00 AM EST active 1 tablet [facility]CW1 [facility]) Cyanocobalamin 500 MCG UNK 12/09/2019 12:00:00 AM EST 1.0 {t ablet} suspended Cyanocobalamin 500 MCG eCW1 ([facility]) Methocarbamol 500 MG Oral Tablet Methocarbamol 500 MG 2019 12:00:00 AM EST active 1 tablet eCW1 ([facility]) Cyanocobalamin 500 MCG UNK 12/09/2019 12:00:00 AM EST active 1 tablet [facility]CW[facility]) Cyanocobalamin 500 MCG UNK 12/09/2019 12:00:00 AM EST 1.0 {t ablet} active Cyanocobalamin 500 MCG eCW1 ([facility]) Cyanocobalamin 500 MCG UNK 12/09/2019 12:00:00 AM EST 1.0 {t ablet} active Cyanocobalamin 500 MCG eCW1 ([facility]) Cyanocobalamin 500 MCG UNK 12/09/2019 12:00:00 AM EST active 1 tablet [facility]CW1 [facility]) buspirone hydrochloride 30 MG Oral Tablet BusPIRone HC l 30 MG BusPIRone HCl 30 MG 12/09/2019 12:00:00 AM EST active 1 tablet eCW1 [facility]) Cyanocobalamin 500 MCG UNK 12/09/2019 12:00:00 AM EST 1.0 {t ablet} active Cyanocobalamin 500 MCG eCW1 ([facility]) buspirone hydrochloride 30 MG Oral Tablet BusPIRone HC l 30 MG BusPIRone HCl 30 MG 12/09/2019 12:00:00 AM EST active 1 tablet eCW1 [facility]) Cyanocobalamin 500 MCG UNK 12/09/2019 12:00:00 AM EST active 1 tablet eCW1 ([facility]) Methocarbamol 500 MG Oral Tablet Methocarbamol 500 MG 2019 12:00:00 AM EST active 1 tablet eCW1 ([facility]) Cyanocobalamin 500 MCG UNK 12/09/2019 12:00:00 AM EST 1.0 {t ablet} active Cyanocobalamin 500 MCG eCW1 ([facility]) Cyanocobalamin 500 MCG UNK 12/09/2019 12:00:00 AM EST 1.0 {t ablet} active Cyanocobalamin 500 MCG eCW1 ([facility]) Cyanocobalamin 500 MCG UNK 12/09/2019 12:00:00 AM EST 1.0 {t ablet} active Cyanocobalamin 500 MCG eCW1 ([facility]) Methocarbamol 750 MG Oral Tablet Methocarbamol 750 MG 2019 12:00:00 AM EST active 1 tablet eCW1 ([facility]) Cyanocobalamin 500 MCG UNK 12/09/2019 12:00:00 AM EST 1.0 {t ablet} active Cyanocobalamin 500 MCG eCW1 ([facility]) buspirone hydrochloride 30 MG Oral Tablet BusPIRone HC l 30 MG BusPIRone HCl 30 MG 12/09/2019 12:00:00 AM EST active 1 tablet [facility]CW[facility]) Cyanocobalamin 500 MCG UNK 12/09/2019 12:00:00 AM EST active 1 tablet eCW1 ([facility]) Cyanocobalamin 500 MCG UNK 12/09/2019 12:00:00 AM EST active 1 tablet eCW1 [facility]) Cyanocobalamin 500 MCG UNK 12/09/2019 12:00:00 AM EST 1.0 {t ablet} suspended Cyanocobalamin 500 MCG eCW1 ([facility]) Methocarbamol 500 MG Oral Tablet Methocarbamol 500 MG 2019 12:00:00 AM EST active 1 tablet eCW1 ([facility]) Cyanocobalamin 500 MCG UNK 12/09/2019 12:00:00 AM EST 1.0 {t ablet} active Cyanocobalamin 500 MCG eCW1 ([facility]) Cyanocobalamin 500 MCG UNK 12/09/2019 12:00:00 AM EST 1.0 {t ablet} suspended Cyanocobalamin 500 MCG eCW1 ([facility]) Cyanocobalamin 500 MCG UNK 12/09/2019 12:00:00 AM EST 1.0 {t ablet} active Cyanocobalamin 500 MCG eCW1 ([facility]) Cyanocobalamin 500 MCG UNK 12/09/2019 12:00:00 AM EST active 1 tablet [facility]CW[facility]) buspirone hydrochloride 30 MG Oral Tablet BusPIRone HC l 30 MG BusPIRone HCl 30 MG 12/09/2019 12:00:00 AM EST active 1 tablet eCW1 ([facility]) Cyanocobalamin 500 MCG UNK 12/09/2019 12:00:00 AM EST active 1 tablet eCW1 [facility]) Cyanocobalamin 500 MCG UNK 12/09/2019 12:00:00 AM EST active 1 tablet eCW1 [facility]) Methocarbamol 500 MG Oral Tablet Methocarbamol 500 MG 2019 12:00:00 AM EST active 1.5 tablet [facility]) Oxycodone Hydrochloride 5 MG Oral Tablet oxycodone 5 m g tablet oxycodone 5 mg tablet completed Oxycodone [place] chloride 5 MG Oral Tablet BILLIE ([facility]) Acetaminophen 325 MG / Oxycodone Hydroch loride 7.5 MG Oral Tablet oxycodone- acetaminophen 7.5 mg-325 mg tablet oxycodone-acetaminophen 7.5 mg-325 mg tablet completed Acetam inophen 325 MG / Oxycodone Hydrochloride 7.5 MG Oral Tablet BILLIE ([facility]) Insurance Providers Payer name Policy type / Coverage type Policy ID Covered democrat ID Covered democrat's relationship to beecrra Policy Becerra Plan Information MEDICARE [id number] SP [id number] [facility] [id number] SP [id number] [place] [id number] SP [id number] [facility] [id number] SP [id number] [facility] MEDICARE DUAL G [id number] Self [id number] MEDICAID M [id number] Self [id number] [facility]) O [id number] S [id number] MEDICAID M [id number] MEDICARE [id number] SP [id number] [facility] I [id number] Self [id number] [facility] MEDICARE DUAL G [id number] Self [id number] UHC UNITED MEDICARE COMPLETE G [id number] Self [id number] MEDICARE C [id number] S [id number] MEDICAID [id number] SP [id number] [facility] [id number] SP [id number] NOT IN EFFECT SP NOT IN EFFECT [facility] [id number] SP [id number] MEDICARE [id number] SP [id number] A [facility] MEDICARE COMPLETE - O/P [id number] 18 [id number] MEDICAID [id number] SP [id number] [facility] [id number] SP [id number] [facility] [id number] SP [id number] ANSI-Medicaid [id number] ANSI-Commercial [id number] ANSI-Not a Secondary Insurance [id number] ANSI-Commercial [id number]-g138-7340-v25h-[id number] dook8ksi-e405-3333-n69c-[id number] ANSI-Not a Secondary Insurance [id number] ANSI-Medicaid [id number] ANSI-Commercial [id number] ANSI-Medicaid [id number] ANSI-Not a Secondary Insurance [id number]-[id number] ANSI-Commercial [id number]-6z4o-7g07-77l2-[id number] [id number]-[id number]-[id number] ANSI-Medicaid [id number] ANSI-Not a Secondary Insurance [id number]-98i4-[id number] ANSI-Not a Secondary Insurance [id number] [id number]-[id number] ANSI-Commercial a881z3zj-g9i4-9uon-39df-[id number] h781f5kl-a4a6-3vde-62sh-[id number] ANSI-Medicaid [id number] ANSI-Medicaid [id number] ANSI-Commercial [id number]-0g2m891mxz42 [id number]-[id number] ANSI-Not a Secondary Insurance [id number]-owc8-2513i [id number] [id number]-6k63-49of-[id number] ANSI-Commercial [id number] ANSI-Medicaid [id number] ANSI-Not a Secondary Insurance [id number] [id number] ANSI-Medicaid [id number] ANSI-Not a Secondary Insurance [id number] 08qf20e [id number]-[id number] ANSI-Commercial 508w07[id number] [id number]27smg306684 ANSI-Not a Secondary Insurance [id number]-67a0-4803-03114 [id number] u49ehrj7-0p4r-[id number] ANSI-Commercial 0287o86w-3rp7-20hk-70x0-w1036q14pd69 6165i94x-7mt5-14zz-22j3-w4929f74am54 ANSI-Medicaid [id number] ANSI-Commercial [id number]-n840-56mt-316l-7795v937zv86 u55k5130-j398-93rz-307u-[id number] ANSI-Medicaid [id number] ANSI-Not a Secondary Insurance [id number]-t853-732m3 10t434c [id number]-[id number] ANSI-Medicaid [id number] ANSI-Commercial s759z473-06xw-3438-2ciy-3hc479fk8hgl q885y538-22oo-2612-7sii-6qr982jg4huh ANSI-Not a Secondary Insurance [id number]-bz26-4p44-j627-3k03l [id number] [id number]-pc15-9i74-t813-7u78tag9f711 ANSI-Medicaid [id number] ANSI-Not a Secondary Insurance [id number]-n030-noz34 8s7ea26 [id number]-e642-nwo594e5yq64 ANSI-Commercial 39ht5w22-374l-03su-288e-xb6ob4hsn604 62hb5c56-104p-51rz-235j-il5qk4ksb912 ANSI-Commercial [id number]-y388-c29481dr7v4q 161v65q6-5e70-0yk0-q785-p65837qv1z3e ANSI-Not a Secondary Insurance 9he2ta27-01xa-5x45-qv7g-98s83 o2daobu 6nr7ey34-83sc-6o38-sm6p-30k80y9uovfz ANSI-Medicaid [id number] ANSI-Not a Secondary Insurance [id number]-346f-45lg-9gf5-901km [id number] h3da7m3f-080x-09lc-[id number] ANSI-Medicaid [id number] ANSI-Commercial [id number]-[id number] 65953hg5-[id number] ANSI-Medicaid [id number] ANSI-Commercial 5wvuvf09-v45l-6614-[id number] 4wfeoi67-f33d-2008-cm02-3wq4ka003155 ANSI-Not a Secondary Insurance [id number]-e9a4-xo1i4 3rrw8da [id number]-w5d2-os3y43bwz5gc ANSI-Medicaid [id number] ANSI-Commercial 6o8w99c2-7yv4-6546-yph1-7454jx8e252g 8l4s75y7-4dg2-8780-idn7-3502mt5b753i ANSI-Not a Secondary Insurance [id number]-rr63-w7b41 [id number] 79s6xlb7-8h51-5dh8-mz96-q3o6697662g0 ANSI-Not a Secondary Insurance [id number]-4102-5210-8n8v-bu042 tp179j0 262n1g7a-9079-2038-2w2t-mx891hn060y8 ANSI-Commercial q35p6801-367y-73ws-079j-6wl8ld5t104r g22f9516-707d-23yo-397z-6pp6mn9q352z ANSI-Medicaid [id number] ANSI-Not a Secondary Insurance [id number]-6159-l2l4-v09l1 [id number] [id number]-4571-g7h9-[id number] ANSI-Medicaid [id number] ANSI-Commercial [id number]-f304-ku75977n0j6a g9b19002-0ts8-7500-m022-jx57085e9f1k ANSI-Medicaid [id number] ANSI-Not a Secondary Insurance [id number]-4990-3771-4k14-5m825 [id number] edmju92l-1863-3525-1i96-9n8610hu0244 ANSI-Commercial 1b0yq080-7b5d-89v1-i453-n7kkc42e24xt 7j2zt375-4j9t-12r4-t249-i3nzm37i71ed ANSI-Medicaid [id number]-3c9u-[id number] ANSI-Not a Secondary Insurance [id number]-b245-0595-268m-934l3 t0272ff a8mz8h17-l576-9187-457r-921v0q9278ue ANSI-Commercial 8s575d41-7n59-1685-vt53-r15v1179dem5 3h927y07-6f14-5908-sd18-n21u9233zoe1 ANSI-Medicaid [id number] ANSI-Not a Secondary Insurance [id number]-rd5w-430u-h25h-8w365 9794n7x 676w98k7-oc9p-166o-a33u-6c2367467f7q ANSI-Commercial j4507571-15lc-8w8a-s12v-63ve3691415o f2821890-85ss-6j4u-r39s-[id number] ANSI-Medicaid [id number] ANSI-Commercial hz07w273-08q4-8749-[id number] lv80v105-69q2-6621-pr00-6sx96w43z366 ANSI-Not a Secondary Insurance [id number]-fb5q-09e31 5u13unm [id number]-av4f-27k809f90hhh ANSI-Not a Secondary Insurance bu6s0v2e-683u-3u43-1970-u5988 03x8e1s wq8f0x8i-564l-7b27-0931-o145409h2l4h ANSI-Medicaid [id number] ANSI-Commercial 1vj9qct8-5111-99r0-z633-53n4j7ja5694 4ho6gyk6-2395-57k9-d144-80h5z6pw5314 ANSI-Not a Secondary Insurance 59m30sd7-iv4e-5xvb-74ql-8299h 7or1j3x 88o81za0-hi5z-9anw-09ji-9584z2gq2r5u ANSI-Medicaid [id number]-k82q-[id number] ANSI-Commercial s183q169-1792-9m87-75yc-30btv680p971 r963t431-7871-9x57-23op-[id number] ANSI-Not a Secondary Insurance k3gp9udy-3be6-29q2-qh77-s59al b8x07n9 a8dh5puv-5pr7-99h3-ow60-d84bct2n70u8 ANSI-Commercial 65ae2w53-1gc6-9030-86e6-n6p117e2i7ld 13qu0f18-7ps9-8769-36y6-y8o280n7w3yj ANSI-Medicaid [id number]-[id number]-[id number] ANSI-Commercial 87l167ni-0gz7-9784-929y-[id number] 02l976hg-7vr0-1633-009u-2549k0220ce3 ANSI-Not a Secondary Insurance u96g8d11-9w74-68j5-3729-lwi60 [id number] o30u5p41-7x88-62h5-1618-nlg74u9n21n4 ANSI-Medicaid [id number] ANSI-Medicaid [id number] ANSI-Not a Secondary Insurance [id number]-rq7i-531o-e3s5-019di 6mi1a2n q73i831i-vh9k-502r-h4p7-283kk4sk8n8w ANSI-Commercial x48r67om-218t-2368-y988-7044kq97ap7b m96w33cf-461t-4847-o187-2380am79jy0q ANSI-Medicaid [id number] ANSI-Commercial 76864de7-05rp-87m6-ciz1-9782r9f49416 29791vd2-52bd-12s2-wat0-9857n9m88510 ANSI-Not a Secondary Insurance [id number]-0b57-b1u64 vh1i69w [id number]-5i98-v4b87ka9k64v ANSI-Medicaid [id number]-[id number] ANSI-Not a Secondary Insurance [id number]-rg86-9735-40e6-56105 mkq49q6 cmu7666h-[id number] ANSI-Commercial lj4oi131-22y7-108o-1473-07bd1p7v2317 ld9oj360-48q0-823k-0626-75jp4q8o2562 ANSI-Commercial 6s80y0x7-2w81-546i-8913-69898a0s4082 9b64u6e6-5j14-474y-[id number] ANSI-Not a Secondary Insurance 39516dys-3j09-93f0-73r4-i36i3 9gs2izw 86128pom-0p04-20q9-34t6-r84f71eq9pqk ANSI-Medicaid [id number] ANSI-Commercial 7826jm74-51k8-8131-6712-r10ot40cc4o9 3483qn57-20r4-7966-0129-h08xe02hr6i2 ANSI-Medicaid [id number] ANSI-Not a Secondary Insurance 70727120-99t7-08w5-de91-720n7 m08549q 80615581-02u2-22v6-kb13-488p0c81737n ANSI-Not a Secondary Insurance 4851opmu-d8ij-94y8z8yf-72p8-33m2-s7n83 cv28io5 3146rmae-r3rn-99f2n0lk-57b0-98c7-v6a73dw51cf1 ANSI-Commercial h2z0i406-52r0-650k-5627-d2848cl9n90r w3d4g434-21r0-693e-0703-w3787ar2r63l ANSI-Medicaid [id number] 56m3l5p9-ai83-30q1-66tp-k57vk9f373q0 ANSI-Medicaid [id number]-bt7q-[id number] ANSI-Not a Secondary Insurance r6b34ov9-109l-340f-53lh-l63ig 1o28ck5 e0v43qi7-941n-326z-18my-q66af6s73am1 ANSI-Commercial o0o4582p-161j-7756-te98-7x4s756q5e92 m5k0493q-017h-6086-yo15-3o2s550f3m02 ANSI-Commercial japwv091-w4c4-60c4-3lt1-9qwf97h9c681 jydwt382-a0u9-36e6-9sb8-4lsy12q0o349 ANSI-Medicaid [id number]-[id number] ANSI-Not a Secondary Insurance na122109-6c0s-7w01-74v4-9c1q0 d6wp98o wm910069-3a3v-7d19-65i8-6c5t7v7vt59o ANSI-Medicaid [id number] ANSI-Commercial 854v1i39-7m7w-1485-u4zp-74cs3ptc6g59 945u6q03-2v8t-9368-c6ib-78ts0dso5t33 ANSI-Not a Secondary Insurance 6700evw3-u977-47xq-65z5-d634l 64877fg 5056ztg3-i714-98jn-17l9-x470v30015cz ANSI-Not a Secondary Insurance 4nrb1fw4-80p3-9ip1-x8rv-86j32 o56020z 4jdg2cf9-40r3-0ew7-f3jp-24g37w17631y ANSI-Medicaid [id number] 9z8pt6qf-19xf-7h8h-6n7i-[id number] ANSI-Commercial sg75yf73-9179-4ik6-uw91-091k9xu8628l lg73jr33-0915-5yy5-ti18-605m4qy2283l ANSI-Medicaid [id number]-15i5-hecu-02quh0066om3 ANSI-Not a Secondary Insurance b3942yr6-k68w-44y9-6834-cxye9 sc4t2sy z2507yi6-i87u-53d4-5227-hgwb1yz6m0dr ANSI-Commercial 1t2x543d-w618-1w03-5234-7740tf3kc445 2z9q057d-d257-8g59-8454-3081ph0qi892 ANSI-Medicaid [id number]-i027-87tf-[id number] ANSI-Commercial 6344hl76-36sz-4517-48ut-6n8cw0smtb96 2602qx35-81tk-6737-30bv-2k6ub0fqia31 ANSI-Not a Secondary Insurance x73f41b2-y832-30ld-4584-90097 6136a15 v03u75l0-b877-85ga-2734-973859151b04 ANSI-Not a Secondary Insurance 72tq654k-81k6-7ssd-lp6q-0j2y6 7113n21 09mo779g-22g0-6lub-vj9b-1g6x12850y21 ANSI-Medicaid [id number] ANSI-Commercial a99z7n99-37lx-542f-p2ei-286a06cexx2p g28a4l54-46vc-461y-k0jy-909a39jymk1q ANSI-Medicaid [id number] 180v26i7-4k39-4xw7-p86o-3126z028j23x ANSI-Commercial 7n103o3d-3825-4c3o-81m9-ln4a2270rio4 9c506t6w-3319-6v1m-67x9-qk0s9731qnk6 ANSI-Not a Secondary Insurance 81y3a7cz-2z5x-9827-ls13-9969v 3s58t04 27l3s5ez-6c5n-6160-nu80-0422a8m56n01 ANSI-Not a Secondary Insurance q1r7g54e-8855-8089-34g6-34bfn jwi10r6 e8p1i71a-0576-6383-01w3-86tdrtty36b8 ANSI-Commercial 16r23yx2-mqcb-78a9-q8a3-z6kt2e1mt843 48m36ro0-nklr-22b8-h8h7-n6sp5f6me379 ANSI-Medicaid [id number] ANSI-Commercial 93k00ucr-44r9-4p13-6049-e7r2i13o71lz 48s13dcf-69x1-7y80-0339-i1l6i91e51zo ANSI-Medicaid [id number]-d73s-[id number] ANSI-Not a Secondary Insurance o5c972u8-170y-583u-u1b4-set78 i70477g u7s659r4-562k-369d-a3x7-tox10o25825w ANSI-Not a Secondary Insurance 631sq083-92e0-2o43-1y7e-982h3 i52u70f 606eh477-55f5-6p77-8v1p-679u9t51q10c ANSI-Commercial k49b69i7-r2jl-0m63-v304-81s9h80ghrqo o19d97v5-s4pg-2f34-z473-53f7p81akbnf ANSI-Medicaid [id number] 8gjb7fgg-276x-3597-u446-6m7f7t9su282 ANSI-Medicaid [id number]-9u9j-[id number] ANSI-Not a Secondary Insurance u8jbmm71-36lv-9u4b-p963-v49z3 l9k88by j3lthz03-50bw-3i0t-l890-e09l2x4h03ox ANSI-Commercial 2h9lugx5-b5bu-428f-0t1h-2473vib833g8 2o4mqlz0-e4ny-132n-5h8b-3623iou094i6 ANSI-Medicaid [id number]-31ke-k061-17e0qp7q0vh2 ANSI-Not a Secondary Insurance 12cm0113-86u6-23s7-33v0-x54ty 614o170 00tu9355-79u8-59z8-43m1-k18yh428e620 ANSI-Commercial rb8d9553-f717-81c1-874c-4760n1dq5472 tu7g6224-x605-16d4-544f-4719h3fb7545 ANSI-Medicaid [id number] b77rqiy5-i00u-[id number] ANSI-Commercial 58d886d3-819c-31u1-86nn-7hs4ro9v5m6r 11i340y5-594m-73y8-78ko-2qx7ct8p4b3c ANSI-Not a Secondary Insurance h00474f5-4456-8196-491u-80n96 b29k8od d97744g1-4328-0889-209r-84q87f73z9kv ANSI-Commercial k5808667-ahfb-7l56-66m5-1qx24p064t85 r5186503-yqki-1b08-67n3-1lq71a738k02 ANSI-Not a Secondary Insurance 6g8216m4-4927-92r6-0m29-1x514 c7h73cj 4t2071c8-4165-50z7-4m33-4r191w1o30xb ANSI-Medicaid [id number]-7gbg-[id number] ANSI-Commercial 71k7g8v4-j3fk-9754-73a0-5846hqz02i6j 35n6n9t1-n0we-6557-87a1-4925vug20r2b ANSI-Medicaid [id number] j2kx37w6-vx5a-8w4c-5466-5127ybk2a127 ANSI-Not a Secondary Insurance 0d429kg2-8jri-2x93-ow0t-01y87 1w8h72a 4o499lb0-2ydt-5s04-vi9y-96f797d8k77i ANSI-Commercial 0t0m3o8a-x68z-22gu-7538-92om8043o5s8 6h5m5l1c-t54c-03zp-2915-07fb5246t2z2 ANSI-Medicaid [id number]-[id number] ANSI-Not a Secondary Insurance bf37os08-4867-02e3-99pv-10669 nfd7486 vf52hx15-3653-15k7-14ik-36253pgj7865 ANSI-Commercial 0hnb488r-bx5r-61in-5702-3j41640ca92s 5xpb725x-gb6r-06vu-4549-2g76453cb78n ANSI-Medicaid [id number]-[id number] ANSI-Not a Secondary Insurance y55j6857-2gs6-8q26-9328-q9e4v o8p6uh5 n08d3538-1vt2-1d88-8015-o3n3bx4p0wz9 ANSI-Commercial okp35bn4-01q6-86z8-z427-78549u24h1g2 ifr08il4-80d0-31n4-s524-34011h64r2b7 ANSI-Not a Secondary Insurance a3ikw3d5-n2ij-5i99-4oq9-x650p 7f3j0cd g7jxg7p6-j7gp-5a57-7wl2-o920e4h1j4oo ANSI-Medicaid [id number] 1k180760-c259-2w54-188c-10rte37781s1 ANSI-Medicaid [id number]-41t4-[id number] ANSI-Commercial cr439n6n-5z06-9958-4b22-07h8x8841hk3 vj764l6k-7i23-3374-3m34-54a3u7547ns6 ANSI-Not a Secondary Insurance 5pfz61k2-l891-7556-ai47-a9lm9 r0a9277 0hfs72v2-p167-4232-sf17-e2lf2t5g0496 ANSI-Medicaid [id number]-2555-5697-[id number] ANSI-Not a Secondary Insurance 85drch00-0y85-495u-0o1q-92p8h 5lf46v5 28qqfv13-2p38-780n-2f8x-42x3k1oa26q3 ANSI-Commercial r298796s-1935-3ps5-552p-497zlm63nk0m q891026l-1803-8pv7-931p-271tuk47nx2o ANSI-Not a Secondary Insurance 9svd995l-08i6-0ft2-iwf3-95f59 d335xpx 2dpl289u-21l9-9ks2-wee4-89t42e491gti ANSI-Commercial 36kna389-9si6-806m-6230-006it5192v2f 40uds681-7ea5-439v-9447-804ne1367v2w ANSI-Medicaid [id number]-9074-3u25-f0p19x9x3x9l vg3p3c41-448v-1844-7e47-e7q28v0u3y3u ANSI-Medicaid [id number] pq76778u-m5oo-1051-[id number] ANSI-Not a Secondary Insurance k6ossl68-h710-3143-ytcs-d0b43 4w58up6 l8fdqh85-r591-3176-vygp-q9b163l34op5 ANSI-Commercial a1469216-uvif-225t-21r1-a01o16v9238b s4974555-jiuk-762u-72f8-x73s88b6163o ANSI-Medicaid [id number]-98n2-1086o6079z8j ANSI-Commercial 86f0ejv3-1y52-3174-dl94-844uw6y9774f 60g4nts2-7f39-1802-dh57-340ly4m7084v ANSI-Not a Secondary Insurance 306c62h4-04m1-5u5g-v6f4-p2l15 767816j 005r56q7-10z3-9a1r-k9q5-n9q92222990n ANSI-Not a Secondary Insurance 140net7k-9596-8iw1-dd9m-npu84 60r6544 067wal9g-6461-4av5-ry4n-jaf1220m5884 ANSI-Medicaid [id number]-[id number]-895o-6p32-[id number] ANSI-Commercial k6795kr3-u47j-3wd0-1e66-17562ei90q55 u2696dr4-z64p-1aa3-8a25-78640ts85q91 ANSI-Medicaid [id number]-g82q-[id number] 153pl17o-0221-46lm-u91f-0dy2pq24qy39 ANSI-Commercial k72367e2-g054-9194-d9os-1500741c822y z52578a3-g878-3591-y6gg-3891165z677m ANSI-Not a Secondary Insurance vk62smmg-638w-6d05-rib8-i8bzo a1q4cx7 bb32kiro-195n-5k14-jlm8-n5cdwp3k8dl1 ANSI-Medicaid [id number] 2h06943k-4alc-[id number] ANSI-Not a Secondary Insurance 3311tq18-ei4o-36s2-lzo7-8d30x so15159 2808dv04-pd3v-77j3-liu1-2f67enu49751 ANSI-Commercial tv3si9rc-6m25-8567-0gqg-94at82f3f116 th8qf2fb-7g68-2057-7bnm-15kk74z6y136 ANSI-Commercial j7580l66-6wl5-5648-a1fl-86mp1k98228o m2019b76-8ua1-5280-m1gq-30an0x45470s ANSI-Medicaid [id number] 75b5d500-xg25-5060-xj2c-[id number] ANSI-Not a Secondary Insurance 4582t7m8-6rzy-7yg9-62m2-4eo97 22735s0 6255d7t7-5gve-5js9-79f6-5vu6520895a2 ANSI-Medicaid [id number]-43lz-5smy-9n5q-[id number] jd14867u-22qw-4bgt-1e3g-m5193kjuo1ml ANSI-Commercial 00j0999u-1603-9c0r-345l-2dd55as3x082 49o2490w-6762-1a1p-299p-1fb49bc0k525 ANSI-Not a Secondary Insurance 1206bb44-256y-15k5-8e99-9ndx8 tiw5034 4450vd67-501g-95g5-2l80-5zzx8ymk7430 ANSI-Medicaid [id number]-[id number]-[id number] u79y06m2-n1w3-3540-[id number] ANSI-Not a Secondary Insurance u396yy5r-hh36-35et-h01l-882q2 n341291 n182jb1r-rk19-95uv-u06r-335a1p214507 ANSI-Commercial 68n2f97z-n2kt-52c0-w356-2q259zxg10e2 80p6t00y-u0rt-29t8-w777-4y163vzz86j4 ANSI-Commercial 26923v3u-5655-2l6s-41w1-88agrp49ho9s 88417s0x-3512-8v6f-14i6-26svgu06vl9k ANSI-Not a Secondary Insurance 96nln215-dv08-1rv9-1839-566fu 116ju17 95dze056-wv13-5fd8-7410-892hu387zr98 ANSI-Medicaid [id number]-[id number]-o5k4-[id number] [id number]-53wv-0s1e-w9y3-in7i2d7u1t72 ANSI-Commercial 3i6hg544-20yw-0140-cn37-5k2u38f6z911 3l8bo168-40hk-8479-vu34-5e2c32g5v356 ANSI-Medicaid [id number] 684288o1-jh89-90e3-1c82-5l32n387v1q3 ANSI-Not a Secondary Insurance j38of3h7-7137-3fb7-95lj-9367b b6b231p m77er2g1-2018-0xd5-59pz-5777rj0c210y ANSI-Commercial 3zjk7501-c41t-1145-624y-2394a9kjk6a6 0rin2302-k30z-6036-417c-4595t6iio7g3 ANSI-Medicaid [id number]-569j-296x-31dv-z4h5wz975v2n vi5p09tt-226u-458p-91ng-u5e1qi765p8y ANSI-Not a Secondary Insurance fb7pgxm3-o12w-6o56-v25f-5645r 2p20002 ff5cbgz1-v94w-1n36-s38g-3210o7m86084 ANSI-Medicaid [id number]-kwz1-k9zg0zvi3o84 [id number]-lgd1-u7ed6qoc6t40 ANSI-Commercial q92394kn-7g27-4878-wm19-f2g186y17dk6 t43469ew-3k85-6944-ht77-j3v864d36ka0 ANSI-Not a Secondary Insurance w62sg925-0p5h-77yp-yx55-46185 b5t824g g65gu930-3b5i-01lc-ym38-81296g9p162x ANSI-Medicaid [id number] [id number]-67397h0cdtww ANSI-Commercial 8863es33-v58k-8tm5-qzjh-vka9g8n011mf 3946at59-f84f-3bd9-ujnz-xeg9i4r731cw ANSI-Not a Secondary Insurance p82567o3-cdg4-89s5-m472-r21h5 vat2o91 g04378s8-hmb8-54g9-z144-u89b5xnb9i06 ANSI-Medicaid [id number]-[id number] 20c54876-0s7n-3tl6-1006-9477z37z5296 ANSI-Not a Secondary Insurance 9i980x69-6513-0017-6846-764z8 5d1c02y 8q178h86-9543-1011-2381-090i42t1x93s ANSI-Commercial 8z235v29-kf2b-4e53-fj42-ela67s1y72oo 5s287b30-qt8p-1c36-gn10-sdq55t6p77eb ANSI-Not a Secondary Insurance 34u6747y-87bk-9935-iu14-724j5 r7619q5 41m9644j-40gq-6276-yn64-711h8c4791f9 ANSI-Commercial 6549831i-41s9-1w0s-5608-3l358a7n9k0p 5701178c-20a8-2r3y-4291-6f928d4s7v8x ANSI-Medicaid [id number]-al2p-[id number]-ck0w-ny4ks994z2i4 ANSI-Commercial 32653fg9-zxk9-28i0-r43o-0a3081t85371 70583gb6-cdc3-25d7-j25f-9o1759a82295 ANSI-Medicaid [id number]-770d-4xfx-[id number] 3937u38l-974a-9mmg-07k4-39i0c71u56mq ANSI-Not a Secondary Insurance wc7q8195-j29j-34o8-89vx-7d9d4 1q757m6 hk3q6357-g14j-61q5-58xv-7x6h08h817y4 ANSI-Not a Secondary Insurance 134c33x1-9zv2-5l49-si36-1b80a ty54975 958x10g1-8oa0-7v15-ly67-4v17moh35742 ANSI-Medicaid [id number]ty93y59a ANSI-Commercial 918us307-31y2-7009-mm0d-4859t7v227k2 526pe740-17k6-9852-tg1u-6872b6s373f0 ANSI-Commercial 45vq8xa1-n7i3-666l-4b0l-3gc972h5dysd 60ma4bk4-s6p1-619o-7s3m-6ly959h3foaz ANSI-Medicaid [id number]-f87o-[id number] gk5t7xgp-u86f-69l6-923d-[id number] ANSI-Not a Secondary Insurance 57897z00-6q80-7122-3k40-l419v i2q864b 79355r23-2e88-2024-3a55-d466lb8x580o ANSI-Commercial i2s26863-w9z6-00vz-9k21-181k8382z6p8 s3c04562-h9l5-12rd-2j36-237h9355e1f0 ANSI-Not a Secondary Insurance 1920e949-g521-25gg-2s8l-rwon8 8ft9ksf 9668g048-q946-46lg-5q3g-oxku13lx3rmk ANSI-Medicaid [id number]-pg32-2kzw-[id number] ANSI-Not a Secondary Insurance 406496w4-63c8-8248-b18z-ikf00 a77056k 360660c1-45q1-1078-q95q-pfj16a96143z ANSI-Commercial n89q12x8-ie3x-257x-xm3e-81i52z50n71y u96h09d7-cf9g-930u-su5v-66s64e63k52z ANSI-Medicaid [id number]-[id number]-181q-90k3-4r80-p42908a8rmco ANSI-Commercial b373m9q9-1qqw-18a0-up81-91wdld538v9f t382u0f1-5ylm-14x0-aw54-67ymzw805c2a ANSI-Medicaid [id number]-m0l0-6556-sc7v-69njd4b579gx 8730a3he-a3s4-0395-bg8f-02wja4b129ch ANSI-Not a Secondary Insurance 8w7533d7-101i-4144-w5n7-s264g x57pze8 4a0000w1-986p-0058-f8o2-v412ei76pwp6 ANSI-Commercial pue2h2z0-63k7-39v9-0158-50y3h5swv89j ukw8o7o8-35p2-48p9-6764-42h1w1rzm25l ANSI-Not a Secondary Insurance ktrn8h00-62c1-4d1t-fby1-g3u3n 1593j5n yrfk4u84-77b0-6x6c-bvz3-n9g8r2567d7h ANSI-Medicaid [id number]-5b26-[id number]-6g18-z201-f0ugypc6gu26 ANSI-Not a Secondary Insurance u1550t72-9101-46ko-w08c-0p187 14142z2 c3521w33-7039-57bt-c15q-9g64382963l0 ANSI-Commercial q34io9g6-ua26-93xs-3i9h-772792s4277h e33wr0z0-pl47-06up-3l8d-727966j5237j ANSI-Medicaid [id number]-tdu2-55l7-ne48-[id number] 3706xls4-gil9-75v7-fb07-b6eos6u64b17 ANSI-Not a Secondary Insurance 2wx1469t-z664-8l7k-h09w-vek45 es54742 8eq0461g-x272-4k2g-h35o-ypb02zn53077 ANSI-Commercial kjd1chp2-2o0f-5j4a-298x-tih64725k8m4 orn7apw4-6o2w-7m3u-841x-qhf20419m9j1 ANSI-Medicaid [id number]d06g gp102cm0-7277-05s6-5sv3-1v39b27hz87f ANSI-Not a Secondary Insurance 49z65p4k-td2u-4c1w-0481-19952 a60z06p 70m99p8j-uj6w-7j7p-6855-78948x12m64l ANSI-Medicaid [id number]-[id number]-642h-6b71-[id number] ANSI-Commercial 39o65e40-29y4-2716-365e-24x26227d9h3 92i47a52-01x0-8905-555d-22p93204x3u1 ANSI-Medicaid [id number]-qc9z-89ch-l587-[id number] 15d485ry-dr8t-82cg-n520-xfkk941y6kx7 ANSI-Commercial g880omoy-jy25-44t6-9u57-k7e1981w266x h099jsjr-kp82-14h6-7g07-m2l4788e657s ANSI-Not a Secondary Insurance 967r6706-4541-6682-9740-zdd49 gc13o1q 578g8180-1962-6557-5377-ocp13rx31t2s ANSI-Medicaid [id number]-[id number]-1b42-2cw7-s416e16ag166 ANSI-Commercial 457exbk4-8308-7630-y42s-36sxzi871e41 167mtmt7-8379-4831-y27r-58kqcq190y59 ANSI-Not a Secondary Insurance 2338e79e-708w-6257-7z6v-83n1n qn83u48 9745m15i-135x-0670-9u6s-18b9ccv34j63 ANSI-Medicaid [id number]-97q5-2auv-[id number] 7d6rs18c-53r9-0mhx-94ld-39h2pm8di770 ANSI-Not a Secondary Insurance 49e8074n-d369-3761-5916-85kdz u73914e 14y6218f-e276-1533-7108-10ucxt03654y ANSI-Commercial l40i4d97-e4u1-99j4-l40t-z4365a3859p1 w04r7p72-x5s8-63n2-g55h-q2187v8171l4 ANSI-Commercial 16al7027-8409-27qr-53hg-12fl57b280u9 32tv3861-4306-06gy-66nq-34xo96x085s9 ANSI-Not a Secondary Insurance lb2qwga5-q558-4pul-2824-2f05m 7662j24 on4ociw7-p832-9zyd-2532-5p35f0849i43 ANSI-Medicaid [id number]-[id number] 0z0h458c-87b1-8n18-4d27-26827w0d49l5 ANSI-Medicaid 2fm7d018-k606-818x-67z8-388f47ny5w5d 7ah5b984-q141-995i-08r2-772g06mk2b5k ANSI-Not a Secondary Insurance o3o61772-p00x-6088-r9qw-v451l 924588x g2d35175-n84a-7622-r8rj-c857z790819x ANSI-Commercial 59sbdmpa-0p70-389m8f86-047b-3r5c-43620rxero75 98dariyd-4v79-582o1j52-497f-4u8f-64777fqusm04 ANSI-Commercial jl1sed76-xa3f-9cwb-m424-di561a2871qg ow5sep31-mt7h-6ksn-t920-se798w4276bc ANSI-Not a Secondary Insurance 7498b877-8196-7203-mhy5-tu3d6 0td227i 2277m265-3759-0232-ntw3-ky2o81zs323u ANSI-Medicaid [id number]-6oh5-[id number] 54kq1802-030d-8am2-yod1-9w4p71d23v63 ANSI-Commercial e2602e73-470u-51q2-91la-4g7s184li008 s6759f12-678v-47v7-85oc-0z9q319cc615 ANSI-Not a Secondary Insurance 81swxd0w-h6q4-1x75-xf0u-yt7f7 u660jvv 32vpwt8u-r5g3-3n41-my4d-ae5z2h221iqy ANSI-Medicaid [id number]-[id number] ywj1jh86-s364-5vzb-[id number] ANSI-Medicaid [id number] b20z6s81-0717-2v57-9206-3znv55l7v65q ANSI-Commercial zyv1km86-1595-710g-zm38-pc05ue0b11f1 dmx3gj87-3419-631s-ce81-nl55kv8n10s4 ANSI-Not a Secondary Insurance b61339yy-516e-8a6v-k0eb-5ocgp e7cl37z j76649la-734f-1z6q-o7uw-3vlohi6lk05n ANSI-Commercial 0px72dr9-xg19-0e99-e047-1x96063oj988 6tz20cc7-iw32-7u49-l915-7j71873rf248 ANSI-Not a Secondary Insurance 568zh794-s45r-9194-p6d4-95516 5063px6 899ve919-v44m-9965-y5f4-677663817dd3 ANSI-Medicaid [id number]-[id number] 3u58r6m0-0205-372s-q914-n9hd9kl76e04 ANSI-Not a Secondary Insurance 4cxhn7u2-4053-70fv-206f-r30m6 j07ve9h 2chwd5b7-5173-27oy-814n-s01x8u50uj9k ANSI-Medicaid [id number]-58639g769o2b ANSI-Commercial 7ju6p467-ww8k-45ht-m929-9u1864c250lh 6vl1b328-pt8e-97yo-u354-0u5110t702ie [facility] ([employer]) Commercial [id number] Self [id number] Medicaid [place] [facility] Part B [id number] Self [id number] ANSI-Commercial n2sv06sg-9396-676p-k4i4-20d2ro2xc117 m3cd33rb-1640-653n-f0w5-39o1pe0mn954 ANSI-Not a Secondary Insurance gic2k1c2-8745-39va-m206-8d6g3 9d405c0 lxa1x4j2-3610-74uc-m249-5t2o55r207g6 ANSI-Medicaid [id number] ANSI-Not a Secondary Insurance z938dch1-9v2v-08op-14x5-v437d 03vwd50 p184vfn6-8z1o-71mr-11b0-o233b50vpl60 ANSI-Medicaid [id number]-3h4b-4344-063g-[id number] ANSI-Commercial a622d9vk-3lk4-8627-64ck-sz68775ui7r0 f323i8ax-2nw9-2718-37tk-hh67178ca9v1 ANSI-Not a Secondary Insurance bos8k246-2d5p-64ac-6651-id0q3 69goj90 zfh0b748-6f3i-45gm-5533-lh8l132eah42 ANSI-Medicaid [id number]-40o2-8yru-[id number] p859mn0f-670f-36g5-5zcn-[id number] ANSI-Commercial 8x145239-63f6-2144-l45c-98990gv55j19 2g290065-68v9-2024-j92s-57676fk49z92 ANSI-Not a Secondary Insurance h973n2f4-y93k-166w-4dc1-290n2 7t192b7 q802e1r9-o38q-140u-1io8-033s46y409u8 ANSI-Commercial gr39x4ro-73pb-3048-37gy-180780h7h8i1 oa58h6se-40cm-0612-97fm-746947a3u8d3 ANSI-Medicaid [id number]-kx27-e668sx234i3o ANSI-Not a Secondary Insurance g7y7313g-q4o2-05u9-82j7-3b73l 9c028e6 n1m8197a-a9r9-45k2-34d2-6x65h1q312u1 ANSI-Commercial 04h54n1w-9j72-5g34-a0xi-2gi50x309445 59e82s3f-3f53-7z43-r4np-5fq72h027479 ANSI-Medicaid [id number]-07vd-e199-[id number] MEDICAID [id number] SP [id number] [facility] [id number] SP [id number] ANSI-Medicaid [id number]-44rj-[id number] ANSI-Not a Secondary Insurance 4b34ar39-2st6-7368-ro5i-35y37 070sv00 9u62js63-5ng8-6164-hf2z-36p56104zz53 ANSI-Commercial 7nq8v146-6056-48p8-l1i0-aom252b4o6d3 7be2n342-5996-44o4-s7h5-dwv466v6y6v6 ANSI-Medicaid [id number] [id number]-35v4-2p5e-[id number] ANSI-Commercial 412el3po-9315-2v5y-3kx4-q10pt7h1117j 922sk3dd-3639-0v3e-2jb7-s68mr2z5430z ANSI-Not a Secondary Insurance 9ezal726-22bq-4853-239n-97z64 7dt1x06 3xeik103-40ku-3356-836b-42t296ar8g43 ANSI-Medicaid [id number]-vxpq-[id number]-[id number] es292zff-xcrw-0393-329b-b124g3mxd3tb ANSI-Not a Secondary Insurance 0v0k925m-9gjn-973z-pg0q-3dw87 s3p9k65 3u6h612l-5whb-083t-uk8w-1um23x7s7l72 ANSI-Commercial 306b462c-3k67-8hi2-9mb9-8b062p991586 928f579j-4f97-2nk5-4uj3-8z435c676141 ANSI-Medicaid [id number] ANSI-Not a Secondary Insurance 01rg4604-0794-6q8k-4g1z-944k8 028z422 74fj0623-9964-7j7c-2w9m-814c3782g494 ANSI-Commercial w55t782j-z060-6he5-8187-03vw392c24z7 p80n181z-o770-1bg1-7997-58gd627q71v6 [facility] Commercial [id number] [facility] [id number] ANSI-Medicaid [id number] ANSI-Not a Secondary Insurance [id number]-90zu-k8v8-1sb39 1al448p 43338626-333i-87so-c9f9-9hv494qi063x ANSI-Commercial [id number] ANSI-Medicaid [id number] ANSI-Commercial [id number] ANSI-Not a Secondary Insurance [id number] ANSI-Not a Secondary Insurance [id number] ANSI-Medicaid [id number] ANSI-Commercial [id number] ANSI-Not a Secondary Insurance [id number] ANSI-Commercial [id number] ANSI-Medicaid [id number] ANSI-Not a Secondary Insurance [id number] ANSI-Medicaid [id number] ANSI-Commercial [id number] ANSI-Not a Secondary Insurance [id number] ANSI-Medicaid [id number] ANSI-Commercial [id number] ANSI-Not a Secondary Insurance [id number] ANSI-Medicaid [id number] ANSI-Commercial [id number] [facility] ([employer]) Commercial [id number] Self [id number] [facility] ([employer]) Commercial [id number] Self [id number] [facility] ([employer]) Commercial [id number] Self [id number] MEDICARE [id number] SP [id number] A MEDICAID [id number] Maria Guadalupe [id number] [facility] MEDICARE [id number] Maria Guadalupe [id number] MEDICAID UNAVAILABLE [place] BLE MEDICARE COMPLETE-[facility] O [id number] S [id number] [facility] MEDICAID DUAL I [id number] Self [id number] [facility] MEDICARE COMPLETE G [id number] Self [id number] MEDICARE COMPLETE [id number] SP [id number] SELF PAY [id number] SP [id number] [facility] [id number] SP [id number] OTHER WORKERS COMPENSATION NOT IN EFFECT FOR TODAYS VISIT SP NOT IN EFFECT FOR TODAYS VISIT OTHER1 WORK COMP NOT IN EFFECT FOR TODAYS VISIT SP NOT IN EFFECT FOR TODAYS VISIT MEDICARE P [id number] S [id number] A [facility] INSURANCE FUND P [id number] S [id number] OTHER WORKERS COMPENSATION DOES NOT APPLY THIS VIST SP DOES NOT APPLY THIS VIST MEDICARE [id number] SP [id number] A [id number] A [id number] Problems, Conditions, and Diagnoses Code Display Name Description Problem Type Effective Dates Data Source(s) G47.00 09578172 Insomnia disorder with non-sleep disorder mental comorbidity Problem 12/13/2020 12:00:00 AM EST eCW1 ([facility]) K72.90 [id number] End stage liver disease Problem 10/25/2020 1 2:00:00 AM EST [facility] D50.9 [id number] Iron deficiency anemia, unspecif ied iron deficiency anemia type Problem 04/12/2020 12:00:00 AM EDT eCW1 ([facility]) D50.9 [id number] Iron deficiency anemia, unspecif ied iron deficiency anemia type Problem 04/12/2020 12:00:00 AM EDT eCW1 ([facility]) R18.8 176136179 Other ascites Problem 01/21/2020 12:00:00 AM EDT [facility]CW[facility] R18.8 [id number] Other ascites Problem 01/21/2020 12:00:00 AM EDT eCW1 [facility]) I50.32 982505727 Chronic diastolic congestive heart failur e Problem 01/19/2020 12:00:00 AM EDT eCW1 [facility]) I50.32 912073583 Chronic diastolic congestive heart failur e Problem 01/19/2020 12:00:00 AM EDT eCW1 [facility]) M48.02 Spinal stenosis, cervical region Spinal stenosis , cervical region Diagnosis 12/23/2020 11:06:42 AM [facility] S22.089A Unspecified fracture of T11- T12 vertebra, initial encounter for closed fracture Unspecified fracture of t11-T12 vertebra , initial encounter for closed fracture Diagnosis 12/23/2020 10:56:57 AM [facility] G95.9 Disease of spinal cord, unspecified Disease of s nathalie cord, unspecified Diagnosis 08/30/2020 03:12:06 PM [facility] R20.2 Paresthesia of skin Paresthesia of skin Diagnosis 1 01:33:54 PM [facility] R20.0 Anesthesia of skin Anesthesia of skin Diagnosis 01:33:54 PM [facility] Surgeries/Procedures Procedure Description Date Indications Data Source(s) Immunization: Flublok Quadrivalent (18 years & older) 0.5mL IM (Influenza) 10/20/2020 12:00:00 AM EST [facility] ([facility]) Office Visit, Est Pt., Level 4 PC 03/15/2020 12:00:00 AM EDT [facility]) Annual wellness visit, includes a person alized prevention plan of service (pps), subsequent visit 03/15/2020 12:00:00 AM EDT eC 1 ([facility]) Office Visit, Est Pt., Level 2 FC 02/17/2020 12:00:00 AM EDT eCW1 ([facility]) TRANS CARE MGMT 14 DAY DISCH 02/08/2020 12:00:00 AM ED T eCW1 ([facility]) Office Visit, Est Pt., Level 3 PC 01/12/2020 12:00:00 AM EST [facility]CW1 [facility]) RhoGAM 300mcg/1.5mL (Rho [D] Immune Globulin Human) 12/17/2019 12:00:00 AM EST eCW1 ([facility]) Results ID Date Data Source [id number] 01/02/2021 07:34:28 AM EST [facility] Name Value Range Interpretation Code Description Data Sharonda rce(s) Supporting Document(s) [facility] HIKZJd1vQlSBYeDg78/XWUwlDIQho8XnLXyfISm4QTspWBOcU7BxVCY8tO6lYZS4UQzWCkDzNrSaYdWf lbm [file] VqYUW8CIF3AtYpIrS1YDBnOAW7HSH0In0dFOKXOd3+SXbswMBzdLwnWNTQGdWhIjCgUEsgJGODPg3M ID Date Data Source [id number] 12/28/2020 08:14:30 AM [facility] XR SPINE LUMBAR 4-MORE VIEWS [id number] RESULTInterpreted by:BRUNO Araujo SPINECLINICAL STATEMENT: Status post [...] rce(s) Supporting Document(s) ID Date Data Source [id number] 12/27/2020 04:24:33 PM EST [facility] XR SPINE CERV 4 OR MORE VIEWS [id number] RESULTInterpreted by:Dony Raman [facility] SPINECLINICAL STATEMENT: Status post spinal fusion. [...] rce(s) Supporting Document(s) ID Date Data Source [id number] 12/26/2020 09:00:00 AM EST [facility] Name Value Range Interpretation Code Description Data Sharonda rce(s) Supporting Document(s) SARS coronavirus 2 RNA Not Detected [facility] [place] This lab was ordered by [facility] and reported by [facility]. ID Date Data Source [id number] 12/19/2020 06:33:00 AM EST [facility] Name Value Range Interpretation Code Description Data Sharonda rce(s) Supporting Document(s) SARS coronavirus 2 RNA Not Detected [facility] [place] This lab was ordered by [facility] and reported by [facility]. ID Date Data Source [id number] 12/12/2020 08:00:00 AM EST [facility] Name Value Range Interpretation Code Description Data Sharonda rce(s) Supporting Document(s) SARS coronavirus 2 RNA Not Detected [facility] [place] This lab was ordered by [facility] and reported by [facility]. ID Date Data Source [id number] 12/05/2020 08:00:00 AM EST [facility] Name Value Range Interpretation Code Description Data Sharonda rce(s) Supporting Document(s) SARS coronavirus 2 RNA Not Detected [facility] [place] This lab was ordered by [facility] and reported by [facility]. ID Date Data Source [id number] 11/28/2020 12:00:00 PM EST [facility] Name Value Range Interpretation Code Description Data Sharonda rce(s) Supporting Document(s) SARS coronavirus 2 RNA Not Detected [facility] [place] This lab was ordered by [facility] and reported by [facility]. ID Date Data Source [id number] 11/21/2020 06:00:00 AM EST [facility] Name Value Range Interpretation Code Description Data Sharonda rce(s) Supporting Document(s) SARS coronavirus 2 RNA Not Detected [facility] [place] This lab was ordered by [facility] and reported by [facility]. ID Date Data Source [id number] 11/14/2020 07:30:00 AM EST [facility] Name Value Range Interpretation Code Description Data Sharonda rce(s) Supporting Document(s) SARS coronavirus 2 RNA Not Detected [facility] [place] This lab was ordered by [facility] and reported by [facility]. ID Date Data Source [id number] 11/07/2020 08:05:00 AM EST [facility] Name Value Range Interpretation Code Description Data Sharonda rce(s) Supporting Document(s) SARS coronavirus 2 RNA [facility] This lab was ordered by [facility] and reported by [facility]. ID Date Data Source [id number] 10/31/2020 09:00:00 AM EST [facility] Name Value Range Interpretation Code Description Data Sharonda rce(s) Supporting Document(s) SARS coronavirus 2 RNA [facility] This lab was ordered by [facility] and reported by [facility]. ID Date Data Source [id number] 10/26/2020 12:23:00 PM EST [facility] Name Value Range Interpretation Code Description Data Sharonda rce(s) Supporting Document(s) SARS coronavirus 2 RNA [facility] This lab was ordered by [facility] and reported by [facility]. ID Date Data Source [id number] 10/26/2020 12:00:00 AM EST [facility] Name Value Range Interpretation Code Description Data Sharonda rce(s) Supporting Document(s) SARS-CoV2 Rapid Antigen [facility] This lab was ordered by [facility] and reported by [facility]. ID Date Data Source [id number] 10/21/2020 01:19:00 PM EST [facility] Name Value Range Interpretation Code Description Data Sharonda rce(s) Supporting Document(s) SARS coronavirus 2 RNA [facility] This lab was ordered by [facility] and reported by [facility]. ID Date Data Source [id number] 10/20/2020 12:00:00 AM EST eCW1 ([facility] [facility]) Name Value Range Interpretation Code Description Data Sharonda rce(s) Supporting Document(s) 0.70 0.00-0.21 eCW1 ([facility]) 0.51 0.00-0.30 eCW1 ([facility]) . eCW1 ([facility]) 62 . eCW1 ([facility]) . eCW1 ([facility]) . eCW1 ([facility]) 0.75 0.25 eCW1 ([facility]) 39 33-346 eCW1 ([facility]) 337 110-276 eCW1 ([facility]) 200 . eCW1 ([facility]) 128 116-209 eCW1 ([facility]) 32 0-40 eCW1 ([facility]) 47 0-60 eCW1 ([facility]) 0.5 0.0-1.2 eCW1 ([facility]) 44 0-40 eCW1 ([facility]) 130 100-199 eCW1 ([facility]) 127 65-99 eCW1 ([facility]) 69 0-149 eCW1 ([facility]) . eCW1 ([facility]) . eCW1 ([facility]) . eCW1 ([facility]) . eCW1 ([facility]) . eCW1 ([facility]) . eCW1 ([facility]) ID Date Data Source AMMONIA 10/20/2020 12:00:00 AM EST eCW1 ([facility]) Name Value Range Interpretation Code Description Data Sharonda rce(s) Supporting Document(s) 123 <32 AMMONIA eCW1 ([facility]) ID Date Data Source VITAMIN B12 LEVEL 10/20/2020 12:00:00 AM EST eCW1 ([facility]) Name Value Range Interpretation Code Description Data Sharonda rce(s) Supporting Document(s) > 1999 180-911 VITAMIN B12 LEVEL eCW1 ([facility]) ID Date Data Source PT & APTT 10/20/2020 12:00:00 AM EST eCW1 ([facility]) Name Value Range Interpretation Code Description Data Sharonda rce(s) Supporting Document(s) 29.4 24.2-38.5 PARTIAL THROMBOPLASTIN TI ME [facility] 14.2 12.5-14.3 PROTHROMBIN TIME eCW1 ([facility]) 1.08 INR eCW1 ([facility]) ID Date Data Source FREE T4 & TSH PANEL 10/20/2020 12:00:00 AM EST eCW1 ([facility]) Name Value Range Interpretation Code Description Data Sharonda rce(s) Supporting Document(s) 1.220 0.358-3.740 [facility] 0.93 0.76-1.46 eCW1 ([facility]) ID Date Data Source LIPID PANEL (CARDIAC RISK) 10/20/2020 12:00:00 AM EST eCW1 ( [facility] Name Value Range Interpretation Code Description Data Sharonda rce(s) Supporting Document(s) Triglyceride [Mass/volume] in Serum or Plasma by calculation 70 <150 eCW1 ([facility]) 2.470 <5 eCW1 ([facility]) Cholesterol in LDL [Mass/volume] in Serum or Plasma by calculation 61 <100 eCW1 [facility]) Cholesterol [Moles/volume] in Serum or Plasma 126 <200 eCW1 ([facility]) Cholesterol in HDL [Moles/volume] in Serum or Plasma 51 >40 eCW1 [facility]) 75 eCW1 ([facility]) ID Date Data Source [id number] 10/20/2020 12:00:00 AM EST eCW1 ([facility]) Name Value Range Interpretation Code Description Data Sharonda rce(s) Supporting Document(s) Hemoglobin A1c/Hemoglobin.total in Blood 6.3 HEMOGLOBIN A1c eCW1 ([facility]) ID Date Data Source TOTAL IRON BINDING CAPACIT 10/20/2020 12:00:00 AM EST eCW1 ( [facility]) Name Value Range Interpretation Code Description Data Sharonda rce(s) Supporting Document(s) 193 50-170 IRON (FE) eCW1 ([facility]) 48.3 13.2-45.0 PERCENT SATURATION eCW1 ([facility]) 400 250-450 TOTAL IRON BINDING CAPACI TY eCW1 ([facility]) ID Date Data Source Reticulocyte Count Sysmex 10/20/2020 12:00:00 AM EST eCW1 (Replaced by [facility]) Name Value Range Interpretation Code Description Data Sharonda rce(s) Supporting Document(s) 2.7 0.5-1.5 RETICULOCYTE % eCW1 ([facility]) ID Date Data Source Comprehensive Metabolic Profile (CMP) 10/20/2020 12:00:00 AM EST eCW1 ([facility]) Name Value Range Interpretation Code Description Data Sharonda rce(s) Supporting Document(s) 120 70-100 GLUCOSE, FASTING eCW1 ([facility]) 141 136-145 SODIUM LEVEL eCW1 ([facility]) 0.95 0.55-1.30 CREATININE FOR GFR eCW1 ([facility]) > 60.0 >51 GLOMERULAR FILTRATION RATE eCW 1 ([facility]) 13 7-18 BLOOD UREA NITROGEN eCW1 ([facility]) 3.9 3.5-5.1 POTASSIUM SERUM eCW1 ([facility]) 105 98-107 CHLORIDE LEVEL eCW1 ([facility]) 28 21-32 CARBON DIOXIDE LEVEL eCW1 ([facility]) 8.7 8.5-10.1 CALCIUM LEVEL eCW1 ([facility]) 36 12-78 ALT/SGPT eCW1 ([facility]) 117 45-117 ALKALINE PHOSPHATASE eCW1 ([facility]) 1.0 0.2-1.0 BILIRUBIN,TOTAL eCW1 ([facility]) 39 7-37 AST/SGOT eCW1 ([facility]) 6.5 6.4-8.2 TOTAL PROTEIN eCW1 ([facility]) 3.1 3.2-5.2 ALBUMIN eCW1 ([facility]) 0.9 1.2-2.2 ALBUMIN/GLOBULIN RATIO eCW1 (Replaced by [facility]) ID Date Data Source CBC with Differential 10/20/2020 12:00:00 AM EST eCW1 ([facility]) Name Value Range Interpretation Code Description Data Sharonda rce(s) Supporting Document(s) 6.5 4.0-10.0 WHITE BLOOD COUNT eCW1 ([facility]) 107.3 80.0-96.0 MEAN CORPUSCULAR VOLUME e CW1 ([facility]) 14.3 12.0-15.5 HEMOGLOBIN eCW1 ([facility]) 41.0 36.0-47.0 HEMATOCRIT eCW1 ([facility]) 3.82 4.00-5.40 RED BLOOD COUNT eCW1 ([facility]) 34.9 32.0-36.5 MEAN CORPUSCULAR HGB CONC eCW1 ([facility]) 153 150-450 PLATELET COUNT, AUTOMATED eCW1 ([facility]) 37.4 27.0-33.0 MEAN CORPUSCULAR HEMOGLOB IN eCW1 ([facility]) 13.0 11.5-14.5 RED CELL DISTRIBUTION WID TH eCW1 ([facility]) 6.4 0.0-3.0 EOS % eCW1 ([facility]) 51.5 36.0-66.0 NEUTROPHILS % eCW1 ([facility]) 10.6 0.0-5.0 MONO % eCW1 ([facility]) 30.7 24.0-44.0 LYMPH % eCW1 ([facility]) 3.4 1.5-8.5 NEUTROPHILS # eCW1 ([facility]) 0.5 0.0-1.0 BASO % eCW1 ([facility]) 2.0 1.5-5.0 LYMPH # eCW1 ([facility]) 0.4 0.0-0.5 EOS # eCW1 ([facility]) 0.7 0.0-0.8 MONO # eCW1 ([facility]) 0.0 0.0-0.2 BASO # eCW1 ([facility]) ID Date Data Source ALPHA FETOPROTEIN TUMOR QUANT 10/20/2020 12:00:00 AM EST eCW 1 ([facility]) Name Value Range Interpretation Code Description Data Sharonda rce(s) Supporting Document(s) 2.0 <8.1 ALPHA FETOPROTEIN TUMOR Q UANT eCW1 ([facility]) ID Date Data Source [id number] 10/11/2020 09:10:00 AM EST [facility] Name Value Range Interpretation Code Description Data Sharonda rce(s) Supporting Document(s) SARS coronavirus 2 RNA [facility] This lab was ordered by [facility] and reported by [facility]. ID Date Data Source [id number] 10/11/2020 12:00:00 AM EST [facility] Name Value Range Interpretation Code Description Data Sharonda rce(s) Supporting Document(s) SARS-CoV2 Rapid PCR [facility] This lab was ordered by [facility] and reported by [facility]. ID Date Data Source [id number] 10/07/2020 12:00:00 AM EST [facility] Name Value Range Interpretation Code Description Data Sharonda rce(s) Supporting Document(s) SARS-CoV2 Rapid Antigen [facility] This lab was ordered by [facility] and reported by [facility]. ID Date Data Source [id number] 09/25/2020 08:01:24 AM EST [facility] Name Value Range Interpretation Code Description Data Sharonda rce(s) Supporting Document(s) [facility] CEIEKa2kInCVUcCh52/WANozZELio8MkKCrcGNv5NRpzZJOqE9LcQFK2pD7xDWF8VBfFKgKgHqWdHFS4 lbm [file] KkAoD0KdS+AG4bAYw+Fl8Xj4KntbM1ykTbARe9LWJwVF7PIEGZS6VICd== ID Date Data Source [id number] 08/31/2020 11:26:13 AM EDT [facility] MR CERVICAL SPINE WITHOUT CONTRAST [id number] FINAL RESULTInterpreted by:Jason Gray MDEXAM: CERVICAL SPINE [...] rce(s) Supporting Document(s) ID Date Data Source [id number] 08/30/2020 04:36:05 PM EDT [facility] Name Value Range Interpretation Code Description Data Sharonda rce(s) Supporting Document(s) [facility] HHPABq2bVzTRCnVq49/QMUhlUPGdk6EkCTgdZUg2ZUxsHVYiA8ShUXY6kW6pEVC1DInFDgOsIxScQKKh lbm [file] Toño+iVlPj8ufO0RLqJpHhrTQjGsyhnrPvx0WJcYnJz4r9rL60Pk9mIM3jedb6v9tm1tHqwr+RjM3H9C [file] KjYKA9W2V6HaPyPG9VOn5NKaU9SOE9wUOsFs2YWKk7OHKBQdAtPG4JREh= ID Date Data Source [id number] 08/26/2020 02:42:04 PM EDT [facility] Name Value Range Interpretation Code Description Data Sharonda rce(s) Supporting Document(s) [facility] MPNRKf9bAdBZRaKb48/XKLciZKHwq2AjKGieMCb4REspRDWuC5WkDHB3cO8dRJB8NQnDWqZqMdPuFVT2 lbm [file] AgICAgICAgICAgICAgICAgICAgICAgICAgICAgICAgICAgICAgICAgICAgICAgICANCiAgICAgICAgIC AgICAgICAgICAgICAgICAgICAgICAgICAgICAgICAg ICAgICAgICAgICAgICAgICAgICAgICAgICAgICAgICAgICAgICAgICAgICAgICAgICAgICAgICAgICAN CiAgICAgICAgICAgICAgICAgICAgICAgICAgICAgICAgICAgICAgICAgICAgICAgICAgICAgICAgICAg ICAgICAgICAgICAgICAgICAgICAgICAgICAgICAgIC AgICAgICAgICANCiAgICAgICAgICAgICAgICAgICAgICAgICAgICAgICAgICAgICAgICAgICAgICAgIC AgICAgICAgICAgICAgICAgICAgICAgICAgICAgICAgICAgICAgICAgICAgICAgICAgICANCiAgICAgIC AgICAgICAgICAgICAgICAgICAgICAgICAgICAgICAg ICAgICAgICAgICAgICAgICAgICAgICAgICAgICAgICAgICAgICAgICAgICAgICAgICAgICAgICAgICAg ICANCiAgICAgICAgICAgICAgICAgICAgICAgICAgICAgICAgICAgICAgICAgICAgICAgICAgICAgICAg ICAgICAgICAgICAgICAgICAgICAgICAgICAgICAgIC AgICAgICAgICAgICANCiAgICAgICAgICAgICAgICAgICAgICAgICAgICAgICAgICAgICAgICAgICAgIC AgICAgICAgICAgICAgICAgICAgICAgICAgICAgICAgICAgICAgICAgICAgICAgICAgICAgICANCiAgIC AgICAgICAgICAgICAgICAgICAgICAgICAgICAgICAg ICAgICAgICAgICAgICAgICAgICAgICAgICAgICAgICAgICAgICAgICAgICAgICAgICAgICAgICAgICAg ICAgICANCiAgICAgICAgICAgICAgICAgICAgICAgICAgICAgICAgICAgICAgICAgICAgICAgICAgICAg ICAgICAgICAgICAgICAgICAgICAgICAgICAgICAgIC AgICAgICAgICAgICAgICANCiAgICAgICAgICAgICAgICAgICAgICAgICAgICAgICAgICAgICAgICAgIC AgICAgICAgICAgICAgICAgICAgICAgICAgICAgICAgICAgICAgICAgICAgICAgICAgICAgICAgICANCj w/tPDaH4todDJutpZ1T2mtNl7ASs9RYA2ts4WdQRAb MDrlolBaAnfHKtNxMUXfOrwZWyo0FWhqNP0YeEAhY2RyM9JjEFzgBA4IAHKpDJRbzGDeRIOvCHArMmZ0 PJKcIMdeCK4BvRWaKYwgWPXxUTTnOY8KNLQcZ739rtDrXC5VBo7HYzLbUG9pcq4ZAKjhSSUbWslOTlp0 ZAytFD6OeCGazHJlJOQzZUOLLrIxT6hea2SoGuMiKH UFQMbmPN1Cs6OwsYIoVXu+Qc2UUD8xj0NoSMuhILPsTM3ayl8KXMeQMtLtJ0EsuKrpFQTlb9ctFBLyEY 3tnIMvGRU3MAWuMnJgK8SwUILGk6yngcArlHXtUB2uQs8eGBLkXXHxHcLqYKINJA2OJNMwRMDlnXLkNF BmJOZWNP4IFMlrCFA0AUUuhzQsnEXeHKsvKY9BAXNk bnQgMTkgMCBSDQo+Hi8OLB3nz6JwFVruVCUaST4hhd8GVBcGUgZfV2K4cSEiM6N2JZbpHn3HAGBpKPYr DLzwDSGHFUwgAT1HNS0gotZ9SB1EmJBoTSHjFKSxcQPxBNu7I32mkHRlSVugNT5INXO+Starr+Qp5NPKLj IGGdYJAqVaWvMGPJXwWmS3EjF8WCd3YlC9QhYB25nJ cnwcRkMTrpYY2JWT2xZPYzETXBJT6ChSSqeE3tbsGmQZNeZNFBRgKmB57xjCBkSQEtVBV5KEPjUx9AIG GdK2HaibAucQzeuiRsSHOaDAYFHL1GSBownzHqbHNloUnpMI41fJisBO4FLa5GIxOuHQ0tuj9YrROwCf 2LBOPzFc1ZTWZbXDMhGEMwYKT9NBEhUdAnLWkkYJJn NJCpOKI2RFRlAEErBP3FErUvVLYzBUnzPvvlANLmRKEitd1TSGNdRHLaASq2SmNgFRRmBYXpNVfkWODi NIErBEM2MXInUFJfFW6UWhYpGJWkMQC5UCBeXMLaJCQatp4WDUMdSBSmYuIyNLSiZOBpGNUhIXqqERMh NMWoSUR9BQQgRDGvDN3OYcPhKHAdAJQxDgOsMRGzHO Fqfo2AWPBjLXIqSsZ9AxBfBTDrPJCfVAldQLMaQRR3GVOhTWIbTQMqSV6JOdCnFTZsZGI4JXWaEQCjIS Elvf3NIKPjRQXcNRd3LKFbSLFaIXGmJOxwHTOeFUQ2ZPA6FISgZPNoDS4SYyQkRAPdHVY3QnUwUUGlWF Resn8QZYXeCINsMkK2WBHqMDRoUSBlYThgRQUeYQL4 QRTyJDPhDHJlJR3RGaDtBSMcUDslHVMtLABrUIQxat4ZJADwENLdHsP9AzWiAWRoUPNiCByvMQUuCBJ8 HAe2BCJsWSQxKZ6HDaCwHMYzWZk1BaQpBOQcFURrmg4NIKCaAHNyIDYsImJmECFoBIOpRJa7rdUofMQl CTn5HB4AJ1ZfuwEuWyWYOe2Cf402VAUmVKKtKq0VN8 jlRq6uMCGdIOAFVq1JAEs1SIagLWEtHgDbMfb5UMHgUaCwRsCsCCq2BjZ8EAM0Q2W+LFq6KlJdVIT8DF ZqGOglJ9UwHxD2ZTNdYAenCCYvCDnhNe1rYSBJYq2+XSdsaJUruPqlTADQIhO8VpE0HNisQJGRFk2A ID Date Data Source [id number] 08/26/2020 02:41:59 PM EDT [facility] Name Value Range Interpretation Code Description Data Sharonda rce(s) Supporting Document(s) [facility] RUHHPr0eVcSOZdNy20/XBHayBDYwc6XmJSidDQk9YNykSUFqR5DiNAC4hD6zFGL0HFwWUgBzNsFkPTI0 lbm McJymWQpZzEXHcSgsRQuQtIDtnFhxiiAIqEX5UlCN0HHLjD48fATNoNRDjK7VdMDBaWRH+Hl7CYBAfdV JmRV9GDfkM8T9hb+O49XuB/rzMBPuURsbI8FTYNHt7jqzGSKfRDjEkEev1rRnGYo2k3+txWrRPNq6Q/D ayKM+o6GuS2ODccw+Skoax+qfIpdLkcdAf9o/2T9cX bLpif/eDh5uKMacj/WCSMllO8SnhlZE+pwWcH681VkbcSSicwfo6GAfoh6ZNdS778Bc1+bwTcwOkiP6T v7zDMQuSxcI8+KJIlFypwIaUk6pu+t/dhZY9YNqxGbzDj+gfPLxKhZYYsRSvwZWttWHloeqdf01S79hQ oUYa9lJdfURNxaZJrO0Elv4HYG+lu2Uhm+tOE4MEba NlnM8qXBxvuNxBDFC4QEVlE342Ib3/MQPrpmPcRqyPilVvpyj1XRP9072gjVS0Xwk7C/3KSjdwSuUZTW OGor0Rp5Rlf4B7bBto6JNJvHgPmZ0NM0HLsBQf0Zuep+AitEVzgFkqzmI9aTSxF/2oTxiFWgnDjVN+yn 1t8VInT6H6czJhCi7MemhWd54bchjTRNjsUb573uVV nS9KdyifuCCWh8BXm84hXCcUDOKNUKNb7JEZStqImXOEQSQxPUngbcOXJgxAMn+AVODCmICQKAsIakw8 sa2V6FLspJ0opdR2f9PSAGRtr8Vm0a79Rif6rbSa+S8V5x1jsAMOnjC6Pn9zAOGZ6RViBMtwFmixqDkp kpEtLIU5ZszAb9IJ/5Ww2WaTYP3Y9NXbDwYPW6hdX/ 3XyjsZA22kpcSwgPLl+3s77LMUA67U+b5PV+UFO26gowYr4C+Mupsjh9vJna3OEQOtiZFbWhuKJCOLMp QsHCxAaoT+3cdWKqLK33UaKoimrXf4KFj1DFnNyIVIYGKcwRy/LOuJ/g7S/io98XvTJIZIhQsO8MfM8/ 5MLsnaEhljKMzZOEbkwQt8+Heriberto/q+V0AoN41BNmXnb [file] ICAgICAgICAgICAgICAgICAgICAgICAgICAgICAgIC AgICAgICAgICAgICAgICAgICAgICAgICAgICAgICAgICAgICAgICAgICAgICAgICAgICAgICAgICAgDQ ogICAgICAgICAgICAgICAgICAgICAgICAgICAgICAgICAgICAgICAgICAgICAgICAgICAgICAgICAgIC AgICAgICAgICAgICAgICAgICAgICAgICAgICAgICAg ICAgICAgICAgDQogICAgICAgICAgICAgICAgICAgICAgICAgICAgICAgICAgICAgICAgICAgICAgICAg ICAgICAgICAgICAgICAgICAgICAgICAgICAgICAgICAgICAgICAgICAgICAgICAgICAgDQogICAgICAg ICAgICAgICAgICAgICAgICAgICAgICAgICAgICAgIC AgICAgICAgICAgICAgICAgICAgICAgICAgICAgICAgICAgICAgICAgICAgICAgICAgICAgICAgICAgIC AgDQogICAgICAgICAgICAgICAgICAgICAgICAgICAgICAgICAgICAgICAgICAgICAgICAgICAgICAgIC AgICAgICAgICAgICAgICAgICAgICAgICAgICAgICAg ICAgICAgICAgICAgDQogICAgICAgICAgICAgICAgICAgICAgICAgICAgICAgICAgICAgICAgICAgICAg ICAgICAgICAgICAgICAgICAgICAgICAgICAgICAgICAgICAgICAgICAgICAgICAgICAgICAgDQogICAg ICAgICAgICAgICAgICAgICAgICAgICAgICAgICAgIC AgICAgICAgICAgICAgICAgICAgICAgICAgICAgICAgICAgICAgICAgICAgICAgICAgICAgICAgICAgIC AgICAgDQogICAgICAgICAgICAgICAgICAgICAgICAgICAgICAgICAgICAgICAgICAgICAgICAgICAgIC AgICAgICAgICAgICAgICAgICAgICAgICAgICAgICAg ICAgICAgICAgICAgICAgDQogICAgICAgICAgICAgICAgICAgICAgICAgICAgICAgICAgICAgICAgICAg ICAgICAgICAgICAgICAgICAgICAgICAgICAgICAgICAgICAgICAgICAgICAgICAgICAgICAgICAgDQog ICAgICAgICAgICAgICAgICAgICAgICAgICAgICAgIC AgICAgICAgICAgICAgICAgICAgICAgICAgICAgICAgICAgICAgICAgICAgICAgICAgICAgICAgICAgIC RiQUOuXDWzKVe9X9giKMLhHALfZM0wAKl8Bt4+QLxZPjVwFPI4igTqsL6LFH6vl8SqYJztZRLwd2QhRH y8VB1NNYVtVHmmPJ4GUTfsjx0OYTTgBHYumYUPx2kz NfAqBNW6PWRmSeggUG3FDHPdG4jlyxQwJXTgKHFVKKbjSVRXTIitDIJSVPQqXKYsZaTyOOfjNE7Sm3Jq eJU5IGp+Yy4HCN9zn1SdEFjgLBEuKU0cfa7SEYdOZgIvV9RwaiG2GDN7QONrWq5HWMIkGKWscKFwTQYc FMUUIpFwO2TkaN31CKJIKq5+UEtjsqBlQjbRRjM6XF Tth7YwSGc4YE9EBHVkRYu3pTLfKHFlM8Wce2PtZi51KRCeKlljC3OgzAZblUHrTPofd2IxNTPMEOVsiM CxMG5mNr6dXICvYMWfByFaAMWJGA8UXCJlORKksQDcMBLdUPYBJV7KPTsdIIX5QBJvpbSaaLZsEMaiKK 9QYXJlbnQgMjggMCBSDQo+Lj6ANG6vp5UbGTxnRVOh MN4yfb1BJXiDZbHkF1F6wAIbA1T8FDsbYr6XHASiISMlDcFrIYYVPBwjNV4IQN6isqP2ZX0WgQKhRHQz OQXtmCQwQKt4G93grZOnOCchCH7NRGT+Starr+Cj2VJOIfVGFeKJEvKtObQENBQhWfH8GwX1HWf0WnV6Fk JS08jJjsdiKaZBsvXJ4ONW9xQAPtVIZOKG4SwTCktT 8hsdJmBVStYELODqEfC10pqLUnBEHvWMN2FTHrBx3UTNXpC5PtvpKmuEjkdkVhYGExXWOUFX4TXEquqk CdqFQwvWtkHM64gZiuLB2YUh8KGuGpRE7vmn3XlPOuHs7QWMMnWU4ZGTIyIEHfOLZsUNU8OXYaQgLfYI fiBIQxXSCcQEO9KARsGKTnTX9CQjGqHDYmKdgnJzVc ONJdPDLufc0ETJMxEMJlTHg7RoWbHXAuFIRqSRogFJNqKBWjKLN2XUMuGRSlSQ2JOiCkASJpBZPmJSJt HQDkHMYcmz1BUNAwGTZoDnG8YGIlRNRfEFBhECzwAJPfQZG0WQm5POYdSFTuRS9PSsOgCQToWAFvTMKl SFLuSOLgib7GORNfEEZkTVJ9TKGpQWCrGGStRCsuWL NjAWQ3LVk9UFOcGADaII7OQjGcPTLnXBB8GvHtYJXsKNCshb4EMYHhRLNgMDv9ZTIpUFKxMUJmUApjZU PwHKMgPUPmVSDoVGXrRU4YMzJiHLNlWUW9JIxqDQEzOZKqoc9DKBLwOJKmEmZ8SDReONZfPJFhQLptXU MhFRP5JFQgYJCcGGHgAQ4MWjTdMIHaGZLgZVDyIILf QNVogn6YRCAmCDLfSTMdAIMtXOOzRCAgBQzzUDHmZIC5DKNnNMHtXNPyDG0EDrPuQSXrLsXhWWHkEJCp HYXwet1UGGQxZOHbFvW1CZHwMVGcULFgLOahWEXyBAZ2UmP7ZLAhKWUxMF0ZJuTeYUNfQzV4OLQvBKJc UGOsdo9GONYoJOQpPekpNJDzAODoQWKoYWjtFQUhEP Z6JLGsXCOeJECeVC6VNvTlXDQtZbjkDKChFVSgTKQddx3JBOUxOFUoATXvZjUkMWCsMXLdAAejDUHfHW NdVNl3AXXsVRLqAE4ZObLpDIOjIuClGTBiGSZbLPPlvs8GKWBsXHScPMN8DsHuJUTsYDQnFSx9ynNefH CmZQn1MX3KK6YiatZfJjHGKf7Py847GIUhFQGmMa0J S7cxJl2rYJWhKJHHMw3RVId5OYnqUKRaXhJzJCS1JJE0H6OrBmKdJDV8EEXvTpwtLWF+IDwwODBlMjBi HLCnGUy4HwjnUqVvJfPiLtMgPUGlEMM0Gk7wSHBOUj7+NIylaYVmbIrlXLPTKcFnYIQaLYhnQVONTz8O ID Date Data Source [id number] 08/14/2020 04:54:22 AM EDT [facility] Name Value Range Interpretation Code Description Data Sharonda rce(s) Supporting Document(s) [facility] ZPCSBu0qZzNMAcYn56/UFUbbEVYpw2ZqZBpgSTp5PItuDSYeV4JfUPS2qK0zXWN6EOkFWrWaNgSjNZJ3 lbm [file] ICAgICAgICAgICAgICAgICAgICAgICAgICAgICAgICAgICAgICAgICAgICAgICAgICAgICAgICAgICAg FYJxSKXkTVGyWN6UCJUhSKVwPGHzGVXyVAXeOBVfST AgICAgICAgICAgICAgICAgICAgICAgICAgICAgICAgICAgICAgICAgICAgICAgICAgICAgICAgICAgIC QpJSEnHBEwVPZbCLKzKXVxAQWgNQ7DDJOoCEAaZRAnBJRoSGWbWIQuDEGuFOOrEHOqBJXfKQXgTIBzLQ AgICAgICAgICAgICAgICAgICAgICAgICAgICAgICAg ALEuRYJuFASuBGAiBGWlXSExNAQuVRUlQZSiWIXkHZ0PXVByMGRiFKDeKXNlBTQzHXDxJIWgHVXcPOGr ICAgICAgICAgICAgICAgICAgICAgICAgICAgICAgICAgICAgICAgICAgICAgICAgICAgICAgICAgICAg AEYwTZQpZFChFFIoRV2DGZCdSQScVISrYRCiHCZyPZ AgICAgICAgICAgICAgICAgICAgICAgICAgICAgICAgICAgICAgICAgICAgICAgICAgICAgICAgICAgIC LjXMYsAKUnCEWbYITyVWXrPROxAGLdQF3ZLQCqPUUmQKOyAAWkAWOgVFGcFAWnXWQeRHRlYUKkICIiNH AgICAgICAgICAgICAgICAgICAgICAgICAgICAgICAg CUTmVNLuEVFbCEZwHQBvSMHsHOQwFOYyBYCoPVKzHFKvYM0SODAbSBWrZAPhUXCfGZYlXUYmCMCnVAFt ICAgICAgICAgICAgICAgICAgICAgICAgICAgICAgICAgICAgICAgICAgICAgICAgICAgICAgICAgICAg NNYvHLPvMKZoWCQdVEReXR8QDUZqPULcLDRgYQEqYH AgICAgICAgICAgICAgICAgICAgICAgICAgICAgICAgICAgICAgICAgICAgICAgICAgICAgICAgICAgIC CvXTXfAZCaDOXdZEYgCASkNSNdNFTrNFTwGF5AIZPsNXAcFPJoGSExFSYhIUBrTPWhENMiPSWdEKYjVP AgICAgICAgICAgICAgICAgICAgICAgICAgICAgICAg AGBpAAJeYBLwCZIyLPUkFGLmNHPeUXVlLFOaJSEjQRKqDOPeXD2TXCZnNVApNMYdSEYfKFCnCQPtVJGy ICAgICAgICAgICAgICAgICAgICAgICAgICAgICAgICAgICAgICAgICAgICAgICAgICAgICAgICAgICAg LRPfTWKeNGYuSORaSJCwKOJsGL5SCJ88vCNsv6W9TJ YzVM0lhdq/Be4NDProccHfjGYfKX2XXvKlJD7wes8HJzDiJA6fqm3XBPvZTvNqC7W5qKWyCUBeTADHXq AbV94aCTbxZu16KGtnPDKoApEwUPu1Kj5LRjXsQ8jdVSPqJiI4UYCnDqK6USOiDpQ2XNEoElVcYWvqSV 6Sg5KbkARhYNd+Vt9STV5ty7JzDYwyVRToPB7kaa6B GZaRUxMpD0MjebT1LUW8CQEcMx0LIBFeQUKjfILuJWWePTSNPaXyO1PcbU14PUSFLk8+DQplbmRvYmoN VsB8GXCtc5JiXWj6BZ0PEQZbPKi0tBEgLBDsA7Obv9PwWo36CFGfOgaoHSxmNEJHBBL0sinyOVHsULMv DS8iPL2lZIQaYUOuCuJwSZTBKC6DZVFvUNPaaDIgHC BbCTPZOE7YQFobFJD4CCMxbpWfhBKhSRzsTN6MFVGygkVqDeMlYFLJVVi+Cx0RZP0ob9OsSAasChHfYK 7vye2LFFgSDpEgX2W3wHOlC4S7KFfzPk3DTEImXRQwVuFrDIZGWRawOM8XIT8pkvN8QE7IlUIeFGKzBQ HgwKTxLLj2G92xsIGqQWffLF0KHVK+Starr+Wl5WRFHn TVRoGPOnVoFwOEWQEuOhK5EvA4AXg3NmU4FjKR69nDlixvOaYQtbVC5YUV4dQJFjWIMXCY2GkEOzrR8y ayOhIEZnNASLYzRvI20lpWOjSKSwPEGyWKDeTf7LJGXyE9QfuaWesEteqlScWTCwAYPKLO0OFMqilhJq gEHwrVxpLQ27wCplXU0HBk7HWaAoZX7kch1YpJBbDb 1HQGKyHh3POANyKXCsUVUaDPH5CVVtFzRgJIimDOJjBCBpKSM4ZQDcAGUxML1WKzVbQFPkWswwMRwbKD YjJNYidr0ZWTDwHIG9GIA9OJGbTTTpBCOyOUbyENZaBINzGWY1JLRqQEQoSH7WSbRfNJYaKFJmCsPzUU UeHUNycr0VIBJqNLZlHGF3MVOnELPqLJOgXWomCPXr BNF2WAWdEQNbKNQaLQ8KYpGhTNPdUBqhNQTwUFDjZTFnst7EOEXhNYQxDEB1BRSnMAQnLJJsOHyhYTZq GRJzHSY6AGUtOPDpJQ8ENaKaWEZiPMT8MoRoFWNyXSFwve5DOWOnISBqObAwYeIdOBCfJEHwJFktUCUa UOFbOrS7IAPsHVXkTL7IYbCpQBOwNKEdRqXzQWNmHL Gblo4TGLQcPGAyLtK7HwFzUSJyVAHuZCpxVOMjCXJjYUP1UMAsXVGpFY3QSpVpOAKtIKE1LWOxSJYdRK Kxio4JPTLtJFU4HpEdHUDrKMAiWMAdSWgaUTCuFHA8RTSnTODhVPBoIH2DKxOcCBWaINuxBHBoGLKnPN Ggwp3OQOOeAKG2OSK4NDGrDJPvWUXfCJusIJDtCQS1 BJZ1ZPIgOMDkRK8CAxYsAISpJwP2FwSpGJPjZLXujs2HDLZjNXP1LwU6XJIjJCWsXSVqXBisRMOyWOB4 EHD5DANpMUWnOP0IYlMiKVUeBpH2ESGuUHAqTWGcmt3QFLXpBER9OoFrQJTtKHJyOHLoOXidZUDrLAV4 JAC0KOGmKVUoSQ3HQiAvUJQnCrq5UIMtRBNxIRJkcb 3QQKJuEAG8GFhuKFPxEJFvWVNhRJtkONPqTBZ1NLM1OLZpVANcZQ8KDbAqUOByGuozAOLgZAUbYRFxwn 5ODGMyMES2EUr1HPYbPZCpRCAtDTxwTGQtCXwsFMw3BNZbYIOdVU3BOeLlFXKuCnOkRfShVBMqAUQtzs 6PCBQkVHQ2SDZaKACvKXHqAQGuBBn6cpVttIAsKBa7 GQ9FK6NczzZbWmdENx4Dj927YLR0ELKqYv2KW4ztJx6vFMSiLVNNKa2STLx6XdSlJYFeUzOyCMRfYKR9 OIV9BHwzMbNlGDC7KTBpUqV+QIynKdQ3LKJgRcX2DFRsDKixTtabCRCwPWY6LXa4DfWgHn3rBOVQSe6+ YLtatBMffUrtOSWWKvteCaB5LXlaBMBWZa5N ID Date Data Source [id number] 08/05/2020 07:00:23 AM EDT [facility] XR SPINE CERV 4 OR MORE VIEWS [id number] RESULTInterpreted by:Dony Raman [facility] SPINECLINICAL STATEMENT: Status post spinal fusion. [...] rce(s) Supporting Document(s) ID Date Data Source [id number] 06/07/2020 01:45:03 PM EDT [facility] Name Value Range Interpretation Code Description Data Sharonda rce(s) Supporting Document(s) Progress Note [facility] FFHVLy3iHyJTIoUa81/PAIohOPEht8SkTTqmJPx1AEumQBJhH0RnUJP5cH4fZCR1KYwOZmFcTtVkEmS9 lbm [file] R1VDQlNMArHulgZjEwGM4PKf6PNwZ5VHC7xAUlYs3TByF9UmjNAaPpEJ3UVBq= ID Date Data Source [id number] 04/28/2020 12:00:00 AM EDT [facility] Name Value Range Interpretation Code Description Data Sharonda rce(s) Supporting Document(s) 2019-nCoV N XXX Ql SARAH N2 [facility] [place] [facility] by [facility]. ID Date Data Source Hereditary Hemochromatosis (Hemoch) 03/01/2020 12:00:00 AM E DT [facility] Name Value Range Interpretation Code Description Data Sharonda rce(s) Supporting Document(s) . HEREDITARY HEMOCHROMATOSIS eCW 1 ([facility]) ID Date Data Source FERRITIN 03/01/2020 12:00:00 AM EDT [facility]CW[facility] ([facility]) Name Value Range Interpretation Code Description Data Sharonda rce(s) Supporting Document(s) 16 1-568 FERRITIN eCW1 ([facility]) ID Date Data Source MAGNESIUM LEVEL 03/01/2020 12:00:00 AM EDT eCW1 ([facility]) Name Value Range Interpretation Code Description Data Sharonda rce(s) Supporting Document(s) 1.9 1.8-2.4 MAGNESIUM LEVEL eCW1 ([facility]) ID Date Data Source NT-PRO BNP 03/01/2020 12:00:00 AM EDT eCW1 ([facility]) Name Value Range Interpretation Code Description Data Sharonda rce(s) Supporting Document(s) 52 <125 NT-PRO BNP eCW1 ([facility]) ID Date Data Source H PYLORI SERUM QUANT IgG CRISTEL 02/08/2020 12:00:00 AM EDT [facility] Name Value Range Interpretation Code Description Data Sharonda rce(s) Supporting Document(s) 0.67 0.00-0.79 H PYLORI SERUM QUANT IgG CRISTEL [facility]CW1 [facility]) Procedure Social History Code Duration Value Status Description Data Source(s ) Alcohol intake 01/01/2021 12:00:00 AM EST Current non-d ruth of alcohol (finding) completed Current non-drinker of alcohol (finding) [facility] Tobacco use and exposure 01/01/2021 12:00:00 AM EST Never used co mpleted Never used [facility] Smoking 01/01/2021 12:00:00 AM EST Former smoker completed Former smoker [facility] Smoking 12/26/2020 12:00:00 AM EST Former Smoker completed Former Smoker [facility] Smoking 12/26/2020 12:00:00 AM EST Former Smoker completed Former Smoker [facility] Smoking 12/26/2020 12:00:00 AM EST Former Smoker completed Former Smoker [facility] Smoking 10/20/2020 12:00:00 AM EST Former Smoker completed Former Smoker [facility] Smoking 10/20/2020 12:00:00 AM EST Former Smoker completed Former Smoker [facility] Smoking 10/20/2020 12:00:00 AM EST Former Smoker completed Former Smoker [facility]CW1 ([facility] Smoking 10/20/2020 12:00:00 AM EST Former Smoker completed Former Smoker [facility]CW1 ([facility] Smoking 10/20/2020 12:00:00 AM EST Former Smoker completed Former Smoker [facility]CW1 ([facility] Smoking 10/20/2020 12:00:00 AM EST Former Smoker completed Former Smoker [facility]CW1 [facility] Smoking 10/20/2020 12:00:00 AM EST Former Smoker completed Former Smoker [facility]CW[facility] ([facility] Smoking 10/20/2020 12:00:00 AM EST Former Smoker completed Former Smoker [facility]CW[facility] Smoking 10/20/2020 12:00:00 AM EST Former Smoker completed Former Smoker [facility]CW1 ([facility] Smoking 10/20/2020 12:00:00 AM EST Former Smoker completed Former Smoker [facility]CW1 [facility] Smoking 10/20/2020 12:00:00 AM EST Former Smoker completed Former Smoker [facility]CW1 [facility] Smoking 10/20/2020 12:00:00 AM EST Former Smoker completed Former Smoker [facility]CW1 [facility] Alcohol intake 09/25/2020 12:00:00 AM EST Current non-d ruth of alcohol (finding) completed Current non-drinker of alcohol (finding) [facility] Alcohol intake 08/26/2020 12:00:00 AM EDT Current non-d ruth of alcohol (finding) completed Current non-drinker of alcohol (finding) [facility] Alcohol intake 08/14/2020 12:00:00 AM EDT Current non-d ruth of alcohol (finding) completed Current non-drinker of alcohol (finding) [facility] Smoking 05/05/2020 12:00:00 AM EDT Former Smoker completed Former Smoker [facility] Smoking 05/05/2020 12:00:00 AM EDT Former Smoker completed Former Smoker eCW1 ([facility]) Smoking 05/05/2020 12:00:00 AM EDT Former Smoker completed Former Smoker eCW1 ([facility]) Smoking 05/05/2020 12:00:00 AM EDT Former Smoker completed Former Smoker eCW1 ([facility]) Smoking 05/05/2020 12:00:00 AM EDT Former Smoker completed Former Smoker eCW1 ([facility]) Smoking 05/05/2020 12:00:00 AM EDT Former Smoker completed Former Smoker eCW1 ([facility]) Smoking 05/05/2020 12:00:00 AM EDT Former Smoker completed Former Smoker eCW1 ([facility]) Smoking 05/05/2020 12:00:00 AM EDT Former Smoker completed Former Smoker eCW1 ([facility]) Smoking 05/05/2020 12:00:00 AM EDT Former Smoker completed Former Smoker eCW1 ([facility]) Smoking 05/05/2020 12:00:00 AM EDT Former Smoker completed Former Smoker eCW1 ([facility]) Smoking 04/27/2020 12:00:00 AM EDT Former Smoker completed Former Smoker eCW1 ([facility]) Smoking 04/27/2020 12:00:00 AM EDT Former Smoker completed Former Smoker eCW1 ([facility]) Smoking 04/27/2020 12:00:00 AM EDT Former Smoker completed Former Smoker eCW1 ([facility]) Smoking 04/27/2020 12:00:00 AM EDT Former Smoker completed Former Smoker eCW1 ([facility]) Smoking 04/12/2020 12:00:00 AM EDT Former Smoker completed Former Smoker eCW1 ([facility]) Smoking 04/12/2020 12:00:00 AM EDT Former Smoker completed Former Smoker eCW1 ([facility]) Smoking 04/12/2020 12:00:00 AM EDT Former Smoker completed Former Smoker eCW1 ([facility]) Smoking 04/12/2020 12:00:00 AM EDT Former Smoker completed Former Smoker eCW1 ([facility]) Vital Signs ID Date Data Source UNK Name Value Range Interpretation Code Description Data Source(s) Diastolic blood pressure 22 mm[Hg] 22 mm[Hg] eCW1 ([facility]) Systolic blood pressure 118 mm[Hg] 118 mm[Hg] e CW1 ([facility]) Body temperature 97.7 [degF] 97.7 [degF] eCW1 ( [facility]) Respiratory rate 18 /min 18 /min eCW1 ([facility]) Heart rate 93 /min 93 /min eCW1 ([facility]) Body mass index (BMI) [Ratio] 35.32 kg/m2 35.32 kg/m2 eCW1 ([facility]) Body height 63.5 [in_i] 63.5 [in_i] eCW1 ([facility]) Body weight 202.6 [lb_av] 202.6 [lb_av] eCW1 (Replaced by [facility]) Oxygen saturation in Arterial blood by Pulse oximetry 98 % 98 % MEDENT ([facility]) Body temperature 35.6 Patricia 35.6 Patricia MEDENT ( [facility]) Body temperature 96.0 [degF] 96.0 [degF] MEDENT ([facility]) Heart rate 93 /min 93 /min MEDENT ([facility]) Diastolic blood pressure 88 mm[Hg] 88 mm[Hg] MEDENT ([facility]) Systolic blood pressure 139 mm[Hg] 139 mm[Hg] M EDENT ([facility]) Body mass index (BMI) [Ratio] 34.9 kg/m2 34.9 k g/m2 MEDENT ([facility]) Body weight 197.25 [lb_av] 197.25 [lb_av] MEDEN T ([facility]) Body height 63.00 [in_i] 63.00 [in_i] MEDENT ([facility]) 5'3" Oxygen saturation in Arterial blood by Pulse oximetry 98 % 98 % MEDENT ([facility]) Body temperature 36.6 Patricia 36.6 Patricia MEDENT ( [facility]) Body temperature 97.9 [degF] 97.9 [degF] MEDENT ([facility]) Heart rate 87 /min 87 /min MEDENT ([facility]) Diastolic blood pressure 82 mm[Hg] 82 mm[Hg] MEDENT ([facility]) Systolic blood pressure 122 mm[Hg] 122 mm[Hg] M EDENT ([facility]) Body mass index (BMI) [Ratio] 35.1 kg/m2 35.1 k g/m2 MEDENT ([facility]) Body weight 198.12 [lb_av] 198.12 [lb_av] MEDEN T ([facility]) Body height 63 [in_i] 63 [in_i] MEDENT ([facility]) 5'3" Diastolic blood pressure 60 mm[Hg] 60 mm[Hg] eCW1 [facility] Systolic blood pressure 116 mm[Hg] 116 mm[Hg] e CW1 ([facility]) Body temperature 97.7 [degF] 97.7 [degF] eCW1 ( [facility]) Respiratory rate 18 /min 18 /min eCW1 ([facility]) Heart rate 82 /min 82 /min eCW1 ([facility]) Body mass index (BMI) [Ratio] 34.28 kg/m2 34.28 kg/m2 eCW1 ([facility]) Body height 63.5 [in_i] 63.5 [in_i] eCW1 ([facility]) Body weight 196.6 [lb_av] 196.6 [lb_av] eCW1 (Replaced by [facility]) Diastolic blood pressure 74 mm[Hg] 74 mm[Hg] eCW1 ([facility]) Systolic blood pressure 128 mm[Hg] 128 mm[Hg] e CW1 ([facility]) Body mass index (BMI) [Ratio] 34.69 kg/m2 34.69 kg/m2 eCW1 ([facility]) Body height 63.5 [in_i] 63.5 [in_i] eCW1 ([facility]) Body weight 199 [lb_av] 199 [lb_av] eCW1 ([facility]) Diastolic blood pressure 60 mm[Hg] 60 mm[Hg] eCW1 ([facility]) Systolic blood pressure 120 mm[Hg] 120 mm[Hg] e CW1 ([facility]) Body temperature 98.3 [degF] 98.3 [degF] eCW1 ( [facility]) Respiratory rate 18 /min 18 /min eCW1 ([facility]) Heart rate 111 /min 111 /min eCW1 ([facility]) Body mass index (BMI) [Ratio] 33.37 kg/m2 33.37 kg/m2 W1 ([facility]) Body height 63.5 [in_us] 63.5 [in_us] eCW1 ([facility]) Body weight Measured 191.4 [lb_av] 191.4 [lb_av ] eCW1 ([facility]) Diastolic blood pressure 60 mm[Hg] 60 mm[Hg] eCW1 ([facility]) Systolic blood pressure 120 mm[Hg] 120 mm[Hg] e CW1 ([facility]) Body temperature 98.3 [degF] 98.3 [degF] eCW1 ( [facility]) Respiratory rate 18 /min 18 /min eCW1 ([facility]) Heart rate 111 /min 111 /min eCW1 ([facility]) Body mass index (BMI) [Ratio] 33.37 kg/m2 33.37 kg/m2 eCW1 ([facility]) Body height 63.5 [in_us] 63.5 [in_us] eCW1 ([facility]) Body weight Measured 191.4 [lb_av] 191.4 [lb_av ] eCW1 ([facility]) Diastolic blood pressure 62 mm[Hg] 62 mm[Hg] eCW1 ([facility]) Systolic blood pressure 120 mm[Hg] 120 mm[Hg] e CW1 ([facility]) Body temperature 97.4 [degF] 97.4 [degF] eCW1 ( [facility]) Respiratory rate 18 /min 18 /min eCW1 ([facility]) Heart rate 100 /min 100 /min eCW1 ([facility]) Body mass index (BMI) [Ratio] 33.47 kg/m2 33.47 kg/m2 eCW1 ([facility]) Body height 63.5 [in_us] 63.5 [in_us] eCW1 ([facility]) Body weight Measured 192 [lb_av] 192 [lb_av] eC W1 ([facility]) Diastolic blood pressure 72 mm[Hg] 72 mm[Hg] eCW1 ([facility]) Systolic blood pressure 106 mm[Hg] 106 mm[Hg] e CW1 ([facility]) Body temperature 96.6 [degF] 96.6 [degF] eCW1 ( [facility]) Respiratory rate 17 /min 17 /min eCW1 ([facility]) Heart rate 110 /min 110 /min eCW1 ([facility]) Body mass index (BMI) [Ratio] 33.61 kg/m2 33.61 kg/m2 W1 ([facility]) Body height 63.5 [in_us] 63.5 [in_us] eCW1 ([facility]) Body weight Measured 192.8 [lb_av] 192.8 [lb_av ] eCW1 ([facility]) Diastolic blood pressure 62 mm[Hg] 62 mm[Hg] eCW1 ([facility]) Systolic blood pressure 100 mm[Hg] 100 mm[Hg] e CW1 ([facility]) Body temperature 97.5 [degF] 97.5 [degF] eCW1 ( [facility]) Respiratory rate 18 /min 18 /min eCW1 ([facility]) Heart rate 107 /min 107 /min eCW1 ([facility]) Body mass index (BMI) [Ratio] 34.38 kg/m2 34.38 kg/m2 eCW1 ([facility]) Body height 63.5 [in_us] 63.5 [in_us] eCW1 ([facility]) Body weight Measured 197.2 [lb_av] 197.2 [lb_av ] eCW1 ([facility]) Diastolic blood pressure 60 mm[Hg] 60 mm[Hg] eCW1 ([facility]) Systolic blood pressure 110 mm[Hg] 110 mm[Hg] e CW1 ([facility]) Body temperature 97.8 [degF] 97.8 [degF] eCW1 ( [facility]) Respiratory rate 17 /min 17 /min eCW1 ([facility]) Heart rate 86 /min 86 /min eCW1 ([facility]) Body mass index (BMI) [Ratio] 39.79 kg/m2 39.79 kg/m2 eCW1 ([facility]) Body height 63.5 [in_us] 63.5 [in_us] eCW1 ([facility]) Body weight Measured 228.2 [lb_av] 228.2 [lb_av ] eCW1 ([facility]) Diastolic blood pressure 60 mm[Hg] 60 mm[Hg] eCW1 ([facility]) Systolic blood pressure 118 mm[Hg] 118 mm[Hg] e CW1 ([facility]) Body temperature 99.9 [degF] 99.9 [degF] eCW1 ( [facility]) Respiratory rate 20 /min 20 /min eCW1 ([facility]) Heart rate 100 /min 100 /min eCW1 ([facility]) Body mass index (BMI) [Ratio] 40.52 kg/m2 40.52 kg/m2 eCW1 ([facility]) Body height 63.5 [in_us] 63.5 [in_us] eCW1 ([facility]) Body weight Measured 232.4 [lb_av] 232.4 [lb_av ] eCW1 ([facility]) Diastolic blood pressure 62 mm[Hg] 62 mm[Hg] eCW1 ([facility]) Systolic blood pressure 120 mm[Hg] 120 mm[Hg] e CW1 ([facility]) Body temperature 98.4 [degF] 98.4 [degF] eCW1 ( [facility]) Respiratory rate 18 /min 18 /min eCW1 ([facility]) Heart rate 104 /min 104 /min eCW1 ([facility]) Body mass index (BMI) [Ratio] 37.83 kg/m2 37.83 kg/m2 eCW1 ([facility]) Body height 63.5 [in_us] 63.5 [in_us] eCW1 ([facility]) Body weight Measured 217.0 [lb_av] 217.0 [lb_av ] eCW1 ([facility]) Body weight 214.6 [lb_av] 214.6 [lb_av] BILLIE ([facility] ) Systolic blood pressure 132 mm[Hg] 132 mm[Hg] A THENA ([facility] ) Body mass index (BMI) [Ratio] 37.4 kg/m2 37.4 k g/m2 BILLIE ([facility] ) Body height 63.5 [in_i] 63.5 [in_i] BILLIE ([facility]) Diastolic blood pressure 70 mm[Hg] 70 mm[Hg] BILLIE ([facility] ) ID Date Data Source [id number] 08/14/2020 04:54:22 AM T [facility] Name Value Range Interpretation Code Description Data Source(s) WEIGHT RECORDED 199 lb 199 lb [facility] Body height Measured 62.5 in 62.5 in [facility] Patient Treatment Plan of Care Planned Activity Planned Date Details Description Data Source (s) Oxybutynin chloride 5 MG Oral Tablet 12/26/2020 12:00:00 AM EST eCW1 ([facility] Miconazole Nitrate 200 MG Vaginal Suppository 12/26/2020 12:00:00 A M EST eCW1 ([facility]) Oxybutynin chloride 5 MG Oral Tablet 12/26/2020 12:00:00 AM EST eCW1 ([facility]) Miconazole Nitrate 200 MG Vaginal Suppository 12/26/2020 12:00:00 A M EST eCW1 ([facility]) Oxybutynin chloride 5 MG Oral Tablet 12/26/2020 12:00:00 AM EST eCW1 ([facility]) Miconazole Nitrate 200 MG Vaginal Suppository 12/26/2020 12:00:00 A M EST eCW1 ([facility]) Spironolactone 100 MG Oral Tablet 12/20/2020 12:00:00 AM [facility] gabapentin 100 MG Oral Capsule 12/20/2020 12:00:00 AM [facility] Melatonin 1 MG Oral Capsule 12/13/2020 12:00:00 AM EST eCW1 ([facility]) Melatonin 1 MG Oral Capsule 12/13/2020 12:00:00 AM EST eCW1 ([facility]) gabapentin 100 MG Oral Capsule 11/22/2020 12:00:00 AM EST eCW1 ([facility]) gabapentin 100 MG Oral Capsule 11/22/2020 12:00:00 AM EST eCW1 ([facility]) gabapentin 100 MG Oral Capsule 11/22/2020 12:00:00 AM EST eCW1 ([facility]) gabapentin 100 MG Oral Capsule 11/22/2020 12:00:00 AM EST eCW1 ([facility]) gabapentin 100 MG Oral Capsule 11/22/2020 12:00:00 AM EST eCW1 ([facility]) gabapentin 100 MG Oral Capsule 11/22/2020 12:00:00 AM EST eCW1 ([facility]) gabapentin 100 MG Oral Capsule 11/22/2020 12:00:00 AM EST eCW1 ([facility]) gabapentin 100 MG Oral Capsule 11/22/2020 12:00:00 AM EST eCW1 ([facility]) Potassium Chloride 10 MEQ Extended Release Oral Tablet 09/21/2020 12:00:00 AM [facility] Levofloxacin 500 MG Oral Tablet 08/08/2020 12:00:00 AM [facility] Fluconazole 100 MG Oral Tablet [Diflucan] 05/16/2020 12:00:00 AM ED T eCW1 ([facility]) Fluconazole 100 MG Oral Tablet [Diflucan] 05/16/2020 12:00:00 AM ED T eCW1 ([facility]) EQL Miconazole 3 200 & 2 MG (9GM) 05/16/2020 12:00:00 AM EDT eCW1 ([facility]) Fluconazole 100 MG Oral Tablet [Diflucan] 05/16/2020 12:00:00 AM ED T eCW1 ([facility]) EQL Miconazole 3 200 & 2 MG (9GM) 05/16/2020 12:00:00 AM EDT eCW1 ([facility]) Fluconazole 100 MG Oral Tablet [Diflucan] 05/16/2020 12:00:00 AM ED T eCW1 ([facility]) EQL Miconazole 3 200 & 2 MG (9GM) 05/16/2020 12:00:00 AM EDT eCW1 ([facility]) Fluconazole 100 MG Oral Tablet [Diflucan] 05/16/2020 12:00:00 AM ED T eCW1 ([facility]) EQL Miconazole 3 200 & 2 MG (9GM) 05/16/2020 12:00:00 AM EDT eCW1 ([facility]) Fluconazole 100 MG Oral Tablet [Diflucan] 05/16/2020 12:00:00 AM ED T eCW1 ([facility]) EQL Miconazole 3 200 & 2 MG (9GM) 05/16/2020 12:00:00 AM EDT eCW1 ([facility]) Fluconazole 100 MG Oral Tablet [Diflucan] 05/16/2020 12:00:00 AM ED T eCW1 ([facility]) EQL Miconazole 3 200 & 2 MG (9GM) 05/16/2020 12:00:00 AM EDT eCW1 ([facility]) EQL Miconazole 3 200 & 2 MG (9GM) 05/16/2020 12:00:00 AM EDT eCW1 ([facility]) 168 HR Buprenorphine 0.005 MG/HR Transdermal Patch [Bu Trans] 05/05/2020 12:00:00 AM EDT eCW1 ([facility]) 168 HR Buprenorphine 0.005 MG/HR Transdermal Patch [Bu Trans] 05/05/2020 12:00:00 AM EDT eCW1 ([facility]) 168 HR Buprenorphine 0.005 MG/HR Transdermal Patch [Bu Trans] 05/05/2020 12:00:00 AM EDT eCW1 ([facility]) 168 HR Buprenorphine 0.005 MG/HR Transdermal Patch [Bu Trans] 05/05/2020 12:00:00 AM EDT eCW1 ([facility]) 168 HR Buprenorphine 0.005 MG/HR Transdermal Patch [Bu Trans] 05/05/2020 12:00:00 AM EDT eCW1 ([facility]) 168 HR Buprenorphine 0.005 MG/HR Transdermal Patch [Bu Trans] 05/05/2020 12:00:00 AM EDT eCW1 ([facility]) 168 HR Buprenorphine 0.005 MG/HR Transdermal Patch [Bu Trans] 05/05/2020 12:00:00 AM EDT eCW1 ([facility]) 168 HR Buprenorphine 0.005 MG/HR Transdermal Patch [Bu Trans] 05/05/2020 12:00:00 AM EDT eCW1 ([facility]) 168 HR Buprenorphine 0.005 MG/HR Transdermal Patch [Bu Trans] 05/05/2020 12:00:00 AM EDT eCW1 ([facility]) linezolid 600 MG Oral Tablet 04/20/2020 12:00:00 AM EDT eCW1 [facility] linezolid 600 MG Oral Tablet 04/20/2020 12:00:00 AM EDT eCW1 ([facility]) linezolid 600 MG Oral Tablet 04/20/2020 12:00:00 AM EDT eCW1 ([facility]) Spironolactone 50 MG Oral Tablet 02/08/2020 12:00:00 AM EDT eCW1 ([facility]) Spironolactone 50 MG Oral Tablet 02/08/2020 12:00:00 AM EDT eCW1 ([facility]) Spironolactone 50 MG Oral Tablet 02/08/2020 12:00:00 AM EDT eCW1 ([facility]) Spironolactone 100 MG Oral Tablet 02/08/2020 12:00:00 AM EDT eCW1 ([facility]) Spironolactone 25 MG Oral Tablet 01/19/2020 12:00:00 AM EDT eCW1 ([facility]) Potassium Chloride 10 MEQ Extended Release Oral Tablet 01/19/2020 12:00:00 AM EDT eCW1 ([facility]) Potassium Chloride 10 MEQ Extended Release Oral Tablet 01/19/2020 12:00:00 AM EDT eCW1 ([facility]) Spironolactone 100 MG Oral Tablet 01/19/2020 12:00:00 AM EDT eCW1 ([facility]) Potassium Chloride 10 MEQ Extended Release Oral Tablet 01/19/2020 12:00:00 AM EDT eCW1 ([facility]) Spironolactone 100 MG Oral Tablet 01/19/2020 12:00:00 AM EDT eCW1 ([facility]) Loratadine 10 MG Oral Tablet 01/14/2020 12:00:00 AM EST eCW1 ([facility]) Methocarbamol 750 MG Oral Tablet 01/12/2020 12:00:00 AM EST eCW1 ([facility]) Methocarbamol 500 MG Oral Tablet 01/12/2020 12:00:00 AM EST eCW1 ([facility]) Lidocaine Hydrochloride 40 MG/ML Mucous Membrane Topic al Solution 01/12/2020 12:00:00 AM EST eCW1 ([facility]) Methocarbamol 500 MG Oral Tablet 01/12/2020 12:00:00 AM EST eCW1 ([facility]) Methocarbamol 500 MG Oral Tablet 01/12/2020 12:00:00 AM EST eCW1 ([facility]) Prednisone 20 MG Oral Tablet 12/31/2019 12:00:00 AM EST eCW1 ([facility]) Methocarbamol 500 MG Oral Tablet 12/09/2019 12:00:00 AM EST eCW1 ([facility]) Methocarbamol 500 MG Oral Tablet 12/09/2019 12:00:00 AM EST eCW1 ([facility]) Methocarbamol 500 MG Oral Tablet 12/09/2019 12:00:00 AM EST eCW1 ([facility]) buspirone hydrochloride 30 MG Oral Tablet 12/09/2019 12:00:00 AM ES T eCW1 ([facility]) Methocarbamol 500 MG Oral Tablet 12/09/2019 12:00:00 AM EST eCW1 ([facility]) buspirone hydrochloride 30 MG Oral Tablet 12/09/2019 12:00:00 AM ES T eCW1 ([facility]) Acetaminophen 325 MG / Oxycodone Hydrochloride 7.5 MG Oral Tablet BILLIE ([facility]) Oxycodone Hydrochloride 5 MG Oral Tablet BILLIE ([facility])
[2021-01-03] MEDS ORDERED: PILL CUTTER 1 EACH XX PRN (18:30)
[2021-01-03] MEDS ORDERED: CLOPIDOGREL 300 MG TAB (PLAVIX) PO STA (18:51)
[2021-01-03 18:53] LABS: RSV AMPLIFICATION NEGATIVE (NEGATIVE)
[2021-01-03 19:18] LABS: INR 1.06; PARTIAL THROMBOPLASTIN TIME 26.9 SECONDS (24.2-38.5)
--- NOTE | 2021-01-03 19:20 | HPEPDOC ---
General Date of Admission Jan 03, 2021 at 15:39 Date of Service: Jan 03, 2021 Chief Complaint The patient is a 60-year-old female admitted with a reason for visit of Acute Hepatic Encephalopathy/Right Sided Weakness. Source: Patient History of Present Illness Mrs. Evans is a 60-year-old female from [facility] with cirrhosis who presents with altered mental status and right-sided weakness. Last seen normal was 6 hours prior to arrival to the ED. While she was seen she had right sided weakness and right facial droop. Otherwise, she was confused. She cannot give account of what happened. She does report missing a few doses of her lactulose. When I saw her, she is leaning to her right. She tells me that she's sad, but denies depression. She denied my entire review of systems. I reached out to neurology, Dr. Ortega about anticoagulation and statin. Since she has cirrhosis, he recommended checking a lipase first prior to starting a statin to see if it would be needed. He also recommended holding on antiplatelet therapy until INR is known. If we can use an antiplatelet agent, we can use clopidogrel. Patient will be admitted for hepatic encephalopathy and suspected CVA. Home Medications Scheduled Buspirone HCl (Buspirone HCl) 30 Mg Tablet, 30 MG PO BID, (Reported) Calcium Carbonate (Antacid) 200 Mg Tab.chew, 500 MG PO BID, (Reported) Cholecalciferol (Vitamin D3) (Vitamin D-400) 10 Mcg Tablet, 400 UNIT PO BID, (Reported) Dulaglutide (Trulicity) 1.5 Mg/0.5 Ml Pen.injctr, 1.5 MG SQ QWEEK, (Reported) SUNDAYS AT 1800 Duloxetine Hcl (Duloxetine HCl) 60 Mg Capsule.dr, 60 MG PO BID, (Reported) Fluticasone Propionate (Flonase Allergy Relief) 9.9 Ml [place].susp, 2 SPRAY NARES DAILY, (Reported) Furosemide (Furosemide) 20 Mg Tab, 20 MG PO DAILY, (Reported) Gabapentin (Gabapentin) 100 Mg Capsule, 100 MG PO TID, (Reported) Lactulose (Lactulose) 10 Gm/15 Ml Solution, 30 ML PO QID, (Reported) Loratadine (Loratadine) 10 Mg Tablet, 10 MG PO DAILY, (Reported) Melatonin (Melatonin) 1 Mg Tablet, 3 MG PO QHS, (Reported) Omeprazole (Omeprazole) 40 Mg Cap, 40 MG PO BID, (Reported) BEFORE BREAKFAST AND DINNER Oxybutynin Chloride (Oxybutynin Chloride) 5 Mg Tablet, 2.5 MG PO BID, (Reported) Rifaximin (Xifaxan) 200 Mg Tablet, 400 MG PO BID, (Reported) Spironolactone (Spironolactone) 50 Mg Tablet, 50 MG PO BID, (Reported) Scheduled PRN Nystatin (Nystatin Powder) 15 Gm Powder, 1 DOSE TOP PRN PRN for ANTIFUNGAL, (Reported) Rizatriptan Benzoate (Rizatriptan) 10 Mg Tab, 10 MG PO DAILY PRN for MIGRAINE, (Reported) Allergies Coded Allergies: ciprofloxacin (Verified Allergy, Intermediate, HIVES, CHILLS, AND FELT LIGHT HEADED, 10/28/19) fluconazole (Verified Allergy, Intermediate, HIVES, 10/28/19) latex (Verified Allergy, Intermediate, HIVES AND RASH ON HANDS, 10/28/19) strawberry (Verified Allergy, Unknown, 10/28/19) Past Medical History Medical History 1. Medication induced cirrhosis 2. Diabetes mellitus 3. Hyperlipidemia 4. Chronic back/neck pain 5. Morbid obesity 6. Remote history of alcohol use disorder and opiate dependence 7. GERD 8. Migraine headaches Surgical History 1. Appendectomy. 2. Cholecystectomy. 3. Multiple back surgeries. 4. Hip replacement 5. Neftali-en-Y gastrojejunostomy Family History Father: History of heart disease Social History * Smoker: former Smoker Alcohol: sober A-FIB/CHADSVASC A-FIB History Current/History of A-Fib/PAF?: No Review of Systems Constitutional: Denies: Chills, Fever Eyes: Denies: Vision change ENT: Denies: Sore Throat Skin: Denies: Rash Pulmonary: Denies: Dyspnea, Cough Cardiovascular: Denies: Chest Pain Gastrointestinal: Denies: Nausea, Abdominal Pain Genitourinary: Denies: Dysuria Hematologic: Denies: Bruising Psych: Denies: Anxiety, Depression Other systems Patient's response to review of system questions is questionable. Patient only she felt sad when I walked into the room but denied depression Physical Examination General Exam: Positive: Cooperative Eye Exam: Negative: Sclera icteric ENT Exam: Positive: Atraumatic Neck Exam: Positive: Supple Chest Exam: Positive: Clear to auscultation; Negative: Rales, Rhonchi, Wheezing Heart Exam: Positive: Rate Normal, Regular Rhythm Abdomen Exam: Positive: Normal bowel sounds, Soft; Negative: Tenderness Extremity Exam: Positive: Edema Neuro Exam: Positive: Other (leaning to the right and right weaker than left) Psych Exam: Positive: Other (appears depressed); Negative: Mental status NL Vital Signs Vital Signs Date Time Temp Pulse Resp B/P (MAP) Pulse Ox O2 Delivery O2 Flow Rate FiO2 01/03/21 18:04 101 18 95 Room Air 01/03/21 18:00 152/87 (108) 01/03/21 15:54 99.1 Laboratory Data Labs 24H Laboratory Tests 2 01/03/21 16:11: Immature Granulocyte % (Auto) 0.5, Neutrophils (%) (Auto) 52.6, Lymphocytes (%) (Auto) 30.7, Monocytes (%) (Auto) 10.6H, Eosinophils (%) (Auto) 4.9H, Basophils (%) (Auto) 0.7, Neutrophils # (Auto) 4.0, Lymphocytes # (Auto) 2.3, Monocytes # (Auto) 0.8, Eosinophils # (Auto) 0.4, Basophils # (Auto) 0.1, Nucleated Red Blood Cells % (auto) 0.0, Anion Gap 10, Glomerular Filtration Rate 44.6L, Osmolality 294, Lactic Acid Level 1.4, Calcium Level 9.5, Total Bilirubin 1.3H, Direct Bilirubin 0.4H, Aspartate Amino Transf (AST/SGOT) 33, Alanine Aminotransferase (ALT/SGPT) 28, Alkaline Phosphatase 125H, Ammonia 138H, Total Creatine Kinase 57, Creatine Kinase MB 1.6, Creatine Kinase MB Relative Index 2.81, Troponin I < 0.02, Total Protein 6.9, Albumin 3.3, Albumin/Globulin Ratio 0.9L, Thyroid Stimulating Hormone (TSH) 1.580 01/03/21 16:36: Bedside Glucose (Misc Panel) 193H 01/03/21 18:08: Coronavirus (COVID-19)(PCR) NEGATIVE, Influenza Type A (RT-PCR) NEGATIVE, Influenza Type B (RT-PCR) NEGATIVE, Respiratory Syncytial Virus (PCR) NEGATIVE CBC/BMP Laboratory Tests 01/03/21 16:11 Assessment/Plan Mrs. Evans is a 60-year-old female from [facility] with cirrhosis who presents with altered mental status and right-sided weakness. The cause of her cirrhosis has been documented inconsistently. 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 But her altered mental status and from hepatic encephalopathy. She does exhibit right-sided weakness concerning for stroke. Aspirin is contraindicated in patients with severe liver disease. Neurology is okay for use Plavix instead if INR is normal. Neurology is wary of use of statin in patient with cirrhosis, especially if patient's cirrhosis is medication induced. We'll check a lipid panel to see if she needs to be on a statin. Plan / VTE VTE Prophylaxis Ordered?: Yes Plan Plan 1. Hepatic encephalopathy Ammonia elevated at 138 Patient reports noncompliance with lactulose We'll restart lactulose here 2. Right-sided weakness Concerning for CVA CT head negative Ordered for MRI, MRA, ultrasound carotids, and echocardiogram with bubble We'll wait for INR prior to starting Plavix. Aspirin is contraindicated in patients with severe liver disease Will order lipid panel to decide if statin is needed 3. Cirrhosis -Continue furosemide, spironolactone, and rifaximin 4. Diabetes mellitus -Start sliding scale insulin -Carbohydrate consistent diet 5. Anxiety/Depression -Buspirone and duloxetine 6. DVT ppx -Lovenox TAWANNA FARMER DO Jan 03, 2021 19:21
[2021-01-03 20:30] VITALS: BP 116/76
[2021-01-03] MEDS: HumaLOG INSULIN (NovoLOG) PER UNIT SC SCH (21:00)
[2021-01-03] MEDS: busPIRone 10 MG TAB PO SCH (22:17)
[2021-01-03] MEDS: GABAPENTIN 100 MG CAP PO SCH (22:17)
[2021-01-03] MEDS: RAMELTEON 8 MG TAB (ROZEREM) PO SCH (22:17)
[2021-01-03] MEDS: CALCIUM CARBONATE 500 MG CHEW U/D PO SCH (22:17)
[2021-01-03] MEDS: OMEPRAZOLE 20 MG CAP PO SCH (22:17)
[2021-01-03] MEDS: VITAMIN D (CHOLECALCIFEROL) 400 INTERNATIONAL UNITS TAB PO SCH (22:18)
[2021-01-03] MEDS: DULoxetine 30 MG CAP (CYMBALTA) PO SCH (22:18)
[2021-01-03] MEDS: oxyBUTYnin 5 MG TAB PO SCH (22:18)
--- NOTE | 2021-01-03 22:43 | REPVR ---
PROCEDURE INFORMATION: Exam: US Duplex Bilateral Extracranial Arteries Exam date and time: 01/03/2021 10:01 PM Age: 60 years old Clinical indication: Altered mental status/memory loss; Confusion or disorientation; Additional info: Suspected CVA TECHNIQUE: Imaging protocol: Real-time Duplex ultrasound scan of the bilateral carotid and vertebral arteries combining turner scale, color Doppler and spectral waveform analysis. Bilateral exam. COMPARISON: CT Spine,cervical w/o contrast 03/16/2020 9:03 AM FINDINGS: Right side: There is minimal atherosclerotic plaque formation right carotid bifurcation. The right ICA/CCA ratio is 0.7 within the range of normal and the right ICA velocity is 49 cm/s. There is no significant stenosis right bifurcation and the amount narrowing would be less than 50 %. The right vertebral artery is antegrade. Left side: There is minimal atherosclerotic plaque formation left carotid bifurcation. The left ICA/CCA ratio is 0.8 within the range of normal with peak velocity of the left internal carotid artery 51 cm/s. There is no significant stenosis left bifurcation and the amount of narrowing would be less than 50 %. The left vertebral artery is antegrade. IMPRESSION: No significant stenosis right or left carotid bifurcation. REFERENCES: SRU CRITERIA. The degree of internal carotid artery stenosis is based on criteria defined by the Society of Radiologists in Ultrasound (SRU). Normal is no stenosis. Mild is less than 50% stenosis. Moderate is 50-69% stenosis. Severe is greater than 69% stenosis to near occlusion. Near occlusion is a markedly narrowed lumen. Total occlusion is no detectable patent lumen. Electronically signed by: Dagoberto Rodriguez On 01/03/2021 22:43:21 PM
[2021-01-04] MEDS: LACTULOSE 20 GM/30 ML SYRUP UD PO SCH ×5 (00:04→23:08)
[2021-01-04 06:00] VITALS: BP 120/74
[2021-01-04 06:00] LABS: HEMATOCRIT 42.4 % (36.0-47.0); HEMOGLOBIN 14.8 g/dl (12.0-15.5); MEAN CORPUSCULAR HEMOGLOBIN 37.3 pg (27.0-33.0); MEAN CORPUSCULAR HGB CONC 34.9 g/dl (32.0-36.5); MEAN CORPUSCULAR VOLUME 106.8 fl (80.0-96.0); PLATELET COUNT, AUTOMATED 158 10^3/uL (150-450); RED BLOOD COUNT 3.97 10^6/uL (4.00-5.40); WHITE BLOOD COUNT 6.6 10^3/uL (4.0-10.0)
[2021-01-04 06:36] LABS: CALCIUM LEVEL 9.3 MG/DL (8.5-10.1); CHOLESTEROL RISK RATIO 3.17 (<5); CREATININE FOR GFR 1.28 MG/DL (0.55-1.30); GLOMERULAR FILTRATION RATE 45.4 (>51)
[2021-01-04 07:04] LABS: HEMOGLOBIN A1c 7.5 %
[2021-01-04] MEDS ORDERED: MECLIZINE 25 MG TABLET PO PRN (09:00)
[2021-01-04] MEDS: CALCIUM CARBONATE 500 MG CHEW U/D PO SCH ×2 (09:06→20:48)
[2021-01-04] MEDS: GABAPENTIN 100 MG CAP PO SCH ×3 (09:06→20:49)
[2021-01-04] MEDS: OMEPRAZOLE 20 MG CAP PO SCH ×2 (09:06→20:45)
[2021-01-04] MEDS: busPIRone 10 MG TAB PO SCH ×2 (09:06→20:46)
[2021-01-04] MEDS: oxyBUTYnin 5 MG TAB PO SCH ×2 (09:07→20:51)
[2021-01-04] MEDS: CLOPIDOGREL 75 MG TAB PO SCH (09:07)
[2021-01-04] MEDS: SPIRONOLACTONE 50 MG TAB PO SCH ×2 (09:07→17:37)
[2021-01-04] MEDS: VITAMIN D (CHOLECALCIFEROL) 400 INTERNATIONAL UNITS TAB PO SCH ×2 (09:07→20:48)
[2021-01-04] MEDS: DULoxetine 30 MG CAP (CYMBALTA) PO SCH ×2 (09:07→20:47)
[2021-01-04] MEDS: LORATADINE 10 MG TAB PO SCH (09:07)
[2021-01-04] MEDS: FUROSEMIDE 20 MG TAB PO SCH (09:07)
[2021-01-04] MEDS: HumaLOG INSULIN (NovoLOG) PER UNIT SC SCH ×4 (09:08→20:50)
[2021-01-04] MEDS: FLUTICASONE PROP 0.05% NASAL SPRAY 16 GM (FLONASE) NARES SCH (09:08)
[2021-01-04 14:00] VITALS: BP 119/66
--- NOTE | 2021-01-04 16:56 | IPNPDOC ---
Subjective Date Seen The patient was seen on 01/04/21. Subjective Chief Complaint/HPI Mrs. Evans is a 60-year-old female from [facility] with cirrhosis who presents with altered mental status and right-sided weakness. This morning she is more coherent and appears to be mentally stronger. She is still confused. She was sitting in the chair, and she was asking to be okay for her to sit in a chair now. She members feeling dizzy, but does not remember what happened last night. Otherwise denies any chest pain or dyspnea. She is able to sit up straight. The right-sided weakness is gone Objective Physical Examination General Exam: Positive: Cooperative Eye Exam: Negative: Sclera icteric ENT Exam: Positive: Atraumatic Neck Exam: Positive: Supple Chest Exam: Positive: Clear to auscultation; Negative: Rales, Rhonchi, Wheezing Heart Exam: Positive: Rate Normal, Regular Rhythm Abdomen Exam: Positive: Normal bowel sounds, Soft; Negative: Tenderness Extremity Exam: Positive: Edema Neuro Exam: Positive: Other (she is no longer leaning to the right) Psych Exam: Positive: Other (confused); Negative: Mental status NL Assessment /Plan Assessment Mrs. Evans is a 60-year-old female from [facility] with cirrhosis who presents with altered mental status and right-sided weakness. The cause of her cirrhosis has been documented inconsistently. 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 But her altered mental status and from hepatic encephalopathy. She does exhibit right-sided weakness concerning for stroke. Aspirin is contraindicated in patients with severe liver disease. Neurology is okay for use Plavix instead if INR is normal. (INR was normal and patient was loaded with Plavix). Neurology is wary of use of statin in patient with cirrhosis, especially if patient's cirrhosis is medication induced. LDL was 75. We'll hold off on statin at this time. After left shows the day after, she appears to be better. The right-sided weakness resolved. Patient he mentally stronger but still confused. She has to sit in a chair when she was already in a chair. Currently pending a MRI Plan/VTE VTE Prophylaxis Ordered?: Yes Plan 1. Hepatic encephalopathy Ammonia elevated at 138 on admission Patient reports noncompliance with lactulose Continue lactulose Patient still confused 2. Right-sided weakness Concerning for CVA CT head negative Ordered for MRI, MRA, ultrasound carotids, and echocardiogram with bubble Patient was loaded with Plavix and continued with Plavix as well as aspirin is contraindicated in patients with severe liver disease LDL was 75. Due to patient's cirrhosis we'll hold off on statin at this time 3. Cirrhosis -Continue furosemide, spironolactone, and rifaximin 4. Diabetes mellitus -Start sliding scale insulin -Carbohydrate consistent diet 5. Anxiety/Depression -Buspirone and duloxetine 6. DVT ppx -Lovenox VS, I&O, 24H, Fishbone Vital Signs/I&O Vital Signs Date Time Temp Pulse Resp B/P (MAP) Pulse Ox O2 Delivery O2 Flow Rate FiO2 01/04/21 14:00 98.1 89 17 119/66 (83) 98 Room Air I&O- Last 24 Hours up to 6 AM 01/04/21 06:00 Intake Total 200 ml Output Total 0 ml Balance 200 ml Laboratory Data 24H LABS Laboratory Tests 2 01/03/21 18:08: Coronavirus (COVID-19)(PCR) NEGATIVE, Influenza Type A (RT-PCR) NEGATIVE, Influenza Type B (RT-PCR) NEGATIVE, Respiratory Syncytial Virus (PCR) NEGATIVE 01/03/21 18:50: Prothrombin Time 14.0, Prothromb Time International Ratio 1.06, Activated Partial Thromboplast Time 26.9 01/04/21 05:39: Nucleated Red Blood Cells % (auto) 0.0, Anion Gap 11, Glomerular Filtration Rate 45.4L, Estimated Mean Plasma Glucose 169H, Hemoglobin A1c 7.5, Calcium Level 9.3, Ammonia 116H, Triglycerides Level 71, Total Cholesterol 130, LDL Cholesterol 75, Non-HDL Cholesterol (LDL + VLDL) 89, Total HDL Cholesterol 41, Cholesterol/HDL Ratio 3.170 01/04/21 11:21: Bedside Glucose (Misc Panel) 157H CBC/BMP Laboratory Tests 01/04/21 05:39 TAWANNA FARMER DO Jan 04, 2021 16:56
--- NOTE | 2021-01-04 17:40 | REPVR ---
PROCEDURE INFORMATION: Exam: MR Angiogram Head Without Contrast, Arteries Exam date and time: 01/04/2021 5:04 PM Age: 60 years old Clinical indication: Cognitive deficit; Altered mental status; Patient HX: AMS, confusion; Additional info: Suspected CVA TECHNIQUE: Imaging protocol: MR angiogram head without contrast. Exam focused on the arteries. 3D rendering (Not supervised by radiologist): MIP and/or 3D reconstructed images were created by the technologist. COMPARISON: CT Head without contrast 01/03/2021 3:57 PM FINDINGS: ANTERIOR CIRCULATION: Right internal carotid artery: Intracranial segment is patent with no significant stenosis. No aneurysm. Right middle cerebral artery: No occlusion or significant stenosis. No aneurysm. Right anterior cerebral artery: No occlusion or significant stenosis. No aneurysm. Left internal carotid artery: Intracranial segment is patent with no significant stenosis. No aneurysm. Left middle cerebral artery: No occlusion or significant stenosis. No aneurysm. Left anterior cerebral artery: No occlusion or significant stenosis. No aneurysm. POSTERIOR CIRCULATION: Right vertebral artery: No occlusion or significant stenosis. No aneurysm. Left vertebral artery: No occlusion or significant stenosis. No aneurysm. Basilar artery: No occlusion or significant stenosis. No aneurysm. Right posterior cerebral artery: No occlusion or significant stenosis. No aneurysm. Left posterior cerebral artery: No occlusion or significant stenosis. No aneurysm. IMPRESSION: No stenosis or occlusion. Electronically signed by: Adi Gonzales On 01/04/2021 17:40:50 PM
--- NOTE | 2021-01-04 17:43 | REPVR ---
PROCEDURE INFORMATION: Exam: MR Head Without Contrast Exam date and time: 01/04/2021 5:04 PM Age: 60 years old Clinical indication: Altered mental status/memory loss; Confusion or disorientation; Patient HX: AMS, confusion; Additional info: Suspected CVA, right sided weakness, right facial droop TECHNIQUE: Imaging protocol: MR of the head without contrast. COMPARISON: CT Head without contrast 01/03/2021 3:57 PM FINDINGS: Limitations: The study is severely limited due to patient motion artifact. Brain: No restricted diffusion is seen to suggest acute infarction. There is no acute intracranial hemorrhage, cerebral edema, or midline shift. Scattered increased T2 and FLAIR signal within the periventricular and subcortical white matter is present. This is nonspecific but likely related to chronic microangiopathic ischemic change. Cerebral ventricles: No hydrocephalus. Bones/joints: Unremarkable. Paranasal sinuses: Normal as visualized. No acute sinusitis. Mastoid air cells: Normal as visualized. No mastoid effusion. Orbital cavity: Unremarkable. Soft tissues: Unremarkable. IMPRESSION: 1. Severely limited exam due to motion artifact 2. No acute intracranial abnormality. 3. Chronic findings as discussed above. Electronically signed by: Adi Gonzales On 01/04/2021 17:43:30 PM
[2021-01-04] MEDS: RAMELTEON 8 MG TAB (ROZEREM) PO SCH (20:48)
[2021-01-04 22:00] VITALS: BP 126/76
[2021-01-05] MEDS: LACTULOSE 20 GM/30 ML SYRUP UD PO SCH ×4 (05:21→23:41)
[2021-01-05 06:00] VITALS: BP 110/58
[2021-01-05 07:38] LABS: HEMATOCRIT 42.7 % (36.0-47.0); HEMOGLOBIN 15.2 g/dl (12.0-15.5); MEAN CORPUSCULAR HEMOGLOBIN 37.8 pg (27.0-33.0); MEAN CORPUSCULAR HGB CONC 35.6 g/dl (32.0-36.5); MEAN CORPUSCULAR VOLUME 106.2 fl (80.0-96.0); PLATELET COUNT, AUTOMATED 186 10^3/uL (150-450); RED BLOOD COUNT 4.02 10^6/uL (4.00-5.40); WHITE BLOOD COUNT 7.7 10^3/uL (4.0-10.0)
[2021-01-05 08:01] LABS: CALCIUM LEVEL 9.3 MG/DL (8.5-10.1); CREATININE FOR GFR 1.44 MG/DL (0.55-1.30); GLOMERULAR FILTRATION RATE 39.7 (>51)
[2021-01-05] MEDS: HumaLOG INSULIN (NovoLOG) PER UNIT SC SCH ×4 (08:34→20:33)
[2021-01-05] MEDS: LACTOBACILLUS ACIDOPHILUS CAP (BACID) PO SCH ×3 (08:34→17:15)
[2021-01-05] MEDS: OMEPRAZOLE 20 MG CAP PO SCH ×2 (08:34→21:15)
[2021-01-05] MEDS: SPIRONOLACTONE 50 MG TAB PO SCH ×2 (08:34→17:15)
[2021-01-05] MEDS: busPIRone 10 MG TAB PO SCH ×2 (08:34→21:15)
[2021-01-05] MEDS: DULoxetine 30 MG CAP (CYMBALTA) PO SCH ×2 (08:35→21:15)
[2021-01-05] MEDS: FUROSEMIDE 20 MG TAB PO SCH (08:35)
[2021-01-05] MEDS: CLOPIDOGREL 75 MG TAB PO SCH (08:35)
[2021-01-05] MEDS: CALCIUM CARBONATE 500 MG CHEW U/D PO SCH ×2 (08:35→21:16)
[2021-01-05] MEDS: oxyBUTYnin 5 MG TAB PO SCH ×2 (08:35→21:16)
[2021-01-05] MEDS: VITAMIN D (CHOLECALCIFEROL) 400 INTERNATIONAL UNITS TAB PO SCH ×2 (08:35→21:17)
[2021-01-05] MEDS: LORATADINE 10 MG TAB PO SCH (08:35)
[2021-01-05] MEDS: GABAPENTIN 100 MG CAP PO SCH ×3 (08:35→21:16)
[2021-01-05] MEDS: cefTRIAXone SOD 1 GM in D5W MINI-BAG PLUS 50 ML IV SCH (08:36)
[2021-01-05] MEDS: FLUTICASONE PROP 0.05% NASAL SPRAY 16 GM (FLONASE) NARES SCH (08:36)
--- NOTE | 2021-01-05 12:32 | IPNPDOC ---
Subjective Date Seen The patient was seen on 01/05/21. Subjective Chief Complaint/HPI Mrs. Evans is a 60-year-old female from [facility] with cirrhosis who presents with altered mental status and right-sided weakness. The/denies any chest pain or dyspnea. She still has not bowel movements. Otherwise reports that she has insomnia. Objective Physical Examination General Exam: Positive: Cooperative Eye Exam: Negative: Sclera icteric ENT Exam: Positive: Atraumatic Neck Exam: Positive: Supple Chest Exam: Positive: Clear to auscultation; Negative: Rales, Rhonchi, Wheezing Heart Exam: Positive: Rate Normal, Regular Rhythm Abdomen Exam: Positive: Normal bowel sounds, Soft; Negative: Tenderness Extremity Exam: Positive: Edema Neuro Exam: Positive: Other (she is no longer leaning to the right) Psych Exam: Positive: Other (confused); Negative: Mental status NL Assessment /Plan Assessment Mrs. Evans is a 60-year-old female from [facility] with cirrhosis who presents with altered mental status and right-sided weakness. The cause of her cirrhosis has been documented inconsistently. 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 But her altered mental status and from hepatic encephalopathy. She does exhibit right-sided weakness concerning for stroke. Aspirin is contraindicated in patients with severe liver disease. Neurology is okay for use Plavix instead if INR is normal. (INR was normal and patient was loaded with Plavix). Neurology is wary of use of statin in patient with cirrhosis, especially if patient's cirrhosis is medication induced. LDL was 75. We'll hold off on statin at this time. After left shows the day after, she appears to be better. The right-sided weakness resolved. Patient he mentally stronger but still confused. She has to sit in a chair when she was already in a chair. Currently pending a MRI Patient had an MRI, negative for acute stroke or intracranial atherosclerosis. Patient still has not had a bowel movement, we'll continue trending ammonia. Plan/VTE VTE Prophylaxis Ordered?: Yes Plan 1. Acute hepatic encephalopathy in the setting of hyperammonemia with confusion in the setting of elevated ammonia due to noncompliance Ammonia elevated at 138 on admission Patient reports noncompliance with lactulose Continue lactulose and monitoring ammonia Still no bowel movements Patient still confused 2. Right-sided weakness Resolved CT head, MRI, MRA, carotid ultrasounds are negative Pending echocardiogram with bubble Patient was loaded with Plavix and continued with Plavix as well as aspirin is contraindicated in patients with severe liver disease LDL was 75. Due to patient's cirrhosis we'll hold off on statin at this time 3. Cirrhosis -Continue furosemide, spironolactone, and rifaximin 4. Diabetes mellitus -Start sliding scale insulin -Carbohydrate consistent diet 5. Anxiety/Depression -Buspirone and duloxetine 6. Insomnia Added on Seroquel 7. UTI Patient reports dysuria UA demonstrates pyuria and bacteria Start patient on ceftriaxone Pending urine culture results 8. DVT ppx -Lovenox VS, I&O, 24H, Fishbone Vital Signs/I&O Vital Signs Date Time Temp Pulse Resp B/P (MAP) Pulse Ox O2 Delivery O2 Flow Rate FiO2 01/05/21 06:00 97.6 84 20 110/58 (75) 96 01/04/21 14:00 Room Air I&O- Last 24 Hours up to 6 AM 01/05/21 05:59 Intake Total 880 ml Output Total 650 ml Balance 230 ml Laboratory Data 24H LABS Laboratory Tests 2 01/04/21 16:55: Bedside Glucose (Misc Panel) 164H 01/04/21 20:38: Bedside Glucose (Misc Panel) 218H 01/05/21 02:46: Urine Color YELLOW, Urine Appearance CLOUDYH, Urine pH 5.0, Urine Specific [place] 1.015, Urine Protein NEGATIVE, Urine Glucose (UA) 3+H, Urine Ketones NEGATIVE, Urine Blood NEGATIVE, Urine Nitrite NEGATIVE, Urine Bilirubin NEGATIVE, Urine Urobilinogen 0.2, Urine Leukocyte Esterase 2+H, Urine WBC (Auto) 44H, Urine RBC (Auto) 1, Urine Hyaline Casts (Auto) 7, Urine Bacteria (Auto) 3+H, Urine Squamous Epithelial Cells 4, Urine Mucus (Auto) LARGE, Urine Sperm (Auto) 01/05/21 07:04: Nucleated Red Blood Cells % (auto) 0.0, Anion Gap 11, Glomerular Filtration Rate 39.7L, Calcium Level 9.3, Ammonia 86H 01/05/21 11:55: Bedside Glucose (Misc Panel) 106H CBC/BMP Laboratory Tests 01/05/21 07:04 Microbiology Microbiology 01/05/21 Urine Culture, Received Pending TAWANNA FARMER DO Jan 05, 2021 12:32
[2021-01-05 14:00] VITALS: BP 113/65
--- NOTE | 2021-01-05 15:18 | ECHO ---
DATE OF PROCEDURE: 01/03/2021 Age: 60 Gender: Female REFERRING PHYSICIAN: Primo Gauthier DO PATIENT LOCATION: Room 4203 REASON FOR STUDY: Cerebrovascular accident (CVA). 2D MEASUREMENTS: IVS 1.3 cm LV 4.5 cm LVPW 1.2 cm LA 3.1 cm Aorta 2.8 cm IVC 1.4 cm DOPPLER MEASUREMENT Peak velocity across the aortic valve 1.4 m/s Peak velocity across the LVOT 0.86 m/s Mitral E 0.63 Mitral A 0.90 with a ratio of 0.7 2D COMMENTS: 1. Normal left ventricular size with mildly increased left ventricular wall thickness. Left ventricular systolic function is normal, estimated at 60% to 65%. 2. Normal left atrium. Normal right atrium and right ventricle. 3. The atrial septum appeared to be normal without evidence of defect or shunt. 4. Normal aortic root. 5. A small pericardial effusion was noted, no evidence of cardiac tamponade. 6. Normal aortic valve, mitral valve, and tricuspid valve. The pulmonic valve and proximal pulmonary artery branches were not well visualized. 7. The inferior vena cava was normal in size, central venous pressure is most likely normal. Doppler with no significant valvular abnormalities detected. Abnormal relaxation pattern was noted across the mitral valve leaflets, as well as the mitral valve annulus consistent with some features of grade 1 left ventricular diastolic dysfunction. IMPRESSION: 1. Normal global left ventricular systolic function with mild concentric left ventricular hypertrophy. There are some features of left ventricular diastolic dysfunction manifested by abnormal relaxation. 2. A small pericardial effusion was noted, no evidence of cardiac tamponade. 3. No significant valvular heart disease detected. 4. This study was technically limited due to poor acoustic window. MTDD
[2021-01-05] MEDS: QUEtiapine FUMARATE 25 MG TAB PO SCH (21:16)
[2021-01-05] MEDS: RAMELTEON 8 MG TAB (ROZEREM) PO SCH (21:16)
[2021-01-05] MEDS: NYSTATIN 100,000 UNITS/GM TOPICAL PWD 15 GM TOP SCH (21:17)
[2021-01-05 22:00] VITALS: BP 117/57
[2021-01-06 05:56] LABS: HEMATOCRIT 40.5 % (36.0-47.0); HEMOGLOBIN 14.1 g/dl (12.0-15.5); MEAN CORPUSCULAR HEMOGLOBIN 37.2 pg (27.0-33.0); MEAN CORPUSCULAR HGB CONC 34.8 g/dl (32.0-36.5); MEAN CORPUSCULAR VOLUME 106.9 fl (80.0-96.0); PLATELET COUNT, AUTOMATED 157 10^3/uL (150-450); RED BLOOD COUNT 3.79 10^6/uL (4.00-5.40); WHITE BLOOD COUNT 6.3 10^3/uL (4.0-10.0)
[2021-01-06 06:00] VITALS: BP_SYST 118
[2021-01-06 06:18] LABS: CALCIUM LEVEL 8.5 MG/DL (8.5-10.1); CREATININE FOR GFR 1.31 MG/DL (0.55-1.30); GLOMERULAR FILTRATION RATE 44.2 (>51); POTASSIUM SERUM 4.1 MEQ/L (3.5-5.1)
[2021-01-06] MEDS: LACTULOSE 20 GM/30 ML SYRUP UD PO SCH ×4 (06:21→23:56)
[2021-01-06] MEDS: HumaLOG INSULIN (NovoLOG) PER UNIT SC SCH ×4 (07:42→21:55)
[2021-01-06] MEDS: cefTRIAXone SOD 1 GM in D5W MINI-BAG PLUS 50 ML IV SCH (08:20)
[2021-01-06] MEDS: CALCIUM CARBONATE 500 MG CHEW U/D PO SCH ×2 (08:21→21:55)
[2021-01-06] MEDS: busPIRone 10 MG TAB PO SCH ×2 (08:21→21:54)
[2021-01-06] MEDS: OMEPRAZOLE 20 MG CAP PO SCH ×2 (08:21→21:54)
[2021-01-06] MEDS: NYSTATIN 100,000 UNITS/GM TOPICAL PWD 15 GM TOP SCH ×2 (08:21→21:56)
[2021-01-06] MEDS: FLUTICASONE PROP 0.05% NASAL SPRAY 16 GM (FLONASE) NARES SCH (08:21)
[2021-01-06] MEDS: DOCUSATE SODIUM 100MG CAPSULE PO SCH ×2 (08:21→21:54)
[2021-01-06] MEDS: LORATADINE 10 MG TAB PO SCH (08:21)
[2021-01-06] MEDS: CLOPIDOGREL 75 MG TAB PO SCH (08:21)
[2021-01-06] MEDS: DULoxetine 30 MG CAP (CYMBALTA) PO SCH ×2 (08:22→21:54)
[2021-01-06] MEDS: oxyBUTYnin 5 MG TAB PO SCH ×2 (08:22→21:54)
[2021-01-06] MEDS: VITAMIN D (CHOLECALCIFEROL) 400 INTERNATIONAL UNITS TAB PO SCH ×2 (08:22→21:55)
[2021-01-06] MEDS: SPIRONOLACTONE 50 MG TAB PO SCH ×2 (08:22→16:27)
[2021-01-06] MEDS: GABAPENTIN 100 MG CAP PO SCH ×3 (08:22→21:54)
[2021-01-06] MEDS: LACTOBACILLUS ACIDOPHILUS CAP (BACID) PO SCH ×3 (08:22→17:06)
[2021-01-06] MEDS: FUROSEMIDE 20 MG TAB PO SCH (08:22)
--- NOTE | 2021-01-06 12:36 | IPNPDOC ---
Subjective Date Seen The patient was seen on 01/06/21. Subjective Chief Complaint/HPI Mrs. Evans is a 60-year-old female from [facility] with cirrhosis who presents with altered mental status and right-sided weakness. Last night, she is able sleep. Denies any chest pain or dyspnea this morning. Still has not had a bowel movement despite the lactulose. Objective Physical Examination General Exam: Positive: Cooperative Eye Exam: Negative: Sclera icteric ENT Exam: Positive: Atraumatic Neck Exam: Positive: Supple Chest Exam: Positive: Clear to auscultation; Negative: Rales, Rhonchi, Wheezing Heart Exam: Positive: Rate Normal, Regular Rhythm Abdomen Exam: Positive: Normal bowel sounds, Soft; Negative: Tenderness Extremity Exam: Positive: Edema Neuro Exam: Positive: Other (she is no longer leaning to the right) Psych Exam: Negative: Mental status NL Assessment /Plan Assessment Mrs. Evans is a 60-year-old female from [facility] with cirrhosis who presents with altered mental status and right-sided weakness. The cause of her cirrhosis has been documented inconsistently. 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 But her altered mental status and from hepatic encephalopathy. She does exhibit right-sided weakness concerning for stroke. Aspirin is contraindicated in patients with severe liver disease. Neurology is okay for use Plavix instead if INR is normal. (INR was normal and patient was loaded with Plavix). Neurology is wary of use of statin in patient with cirrhosis, especially if patient's cirrhosis is medication induced. LDL was 75. We'll hold off on statin at this time. After left shows the day after, she appears to be better. The right-sided weakness resolved. Patient he mentally stronger but still confused. She has to sit in a chair when she was already in a chair. Currently pending a MRI Patient had an MRI, negative for acute stroke or intracranial atherosclerosis. Patient still has not had a bowel movement, added on Colace. We'll continue trending ammonia. Plan/VTE VTE Prophylaxis Ordered?: Yes Plan 1. Acute hepatic encephalopathy in the setting of hyperammonemia with confusion in the setting of elevated ammonia due to noncompliance Ammonia elevated at 138 on admission Patient reports noncompliance with lactulose Continue lactulose and monitoring ammonia Still no bowel movements. Added on Colace Patient still confused 2. Right-sided weakness Resolved CT head, MRI, MRA, carotid ultrasounds are negative Pending echocardiogram with bubble Patient was loaded with Plavix and continued with Plavix as aspirin is contraindicated in patients with severe liver disease LDL was 75. Due to patient's cirrhosis we'll hold off on statin at this time 3. Cirrhosis -Continue furosemide, spironolactone, and rifaximin 4. Diabetes mellitus -Start sliding scale insulin -Carbohydrate consistent diet 5. Anxiety/Depression -Buspirone and duloxetine 6. Insomnia Added on Seroquel 7. UTI Patient reports dysuria UA demonstrates pyuria and bacteria On ceftriaxone Pending urine culture results 8. DVT ppx -Lovenox Disposition: Pending improvement of ammonia and bowel movement VS, I&O, 24H, Fishbone Vital Signs/I&O Vital Signs Date Time Temp Pulse Resp B/P (MAP) Pulse Ox O2 Delivery O2 Flow Rate FiO2 01/06/21 06:00 97.4 81 18 118/ (39) 96 01/04/21 14:00 Room Air I&O- Last 24 Hours up to 6 AM 01/06/21 06:00 Intake Total 2470 ml Output Total 1650 ml Balance 820 ml Laboratory Data 24H LABS Laboratory Tests 2 01/05/21 16:50: Bedside Glucose (Misc Panel) 199H 01/05/21 20:30: Bedside Glucose (Misc Panel) 242H 01/06/21 05:43: Nucleated Red Blood Cells % (auto) 0.0, Anion Gap 9, Glomerular Filtration Rate 44.2L, Calcium Level 8.5, Ammonia 120H 01/06/21 11:53: Bedside Glucose (Misc Panel) 233H CBC/BMP Laboratory Tests 01/06/21 05:43 Microbiology Microbiology 01/05/21 Urine Culture - Final, Complete TAWANNA FARMER DO Jan 06, 2021 12:36
[2021-01-06 14:00] VITALS: BP 113/64
[2021-01-06] MEDS: RAMELTEON 8 MG TAB (ROZEREM) PO SCH (21:54)
[2021-01-06] MEDS: QUEtiapine FUMARATE 25 MG TAB PO SCH (21:55)
[2021-01-06 22:00] VITALS: BP 113/66
[2021-01-07] MEDS: LACTULOSE 20 GM/30 ML SYRUP UD PO SCH ×4 (05:46→23:02)
[2021-01-07 06:00] VITALS: BP 112/66
[2021-01-07 06:30] LABS: HEMATOCRIT 37.7 % (36.0-47.0); HEMOGLOBIN 13.2 g/dl (12.0-15.5); MEAN CORPUSCULAR HEMOGLOBIN 37.6 pg (27.0-33.0); MEAN CORPUSCULAR VOLUME 107.4 fl (80.0-96.0); PLATELET COUNT, AUTOMATED 141 10^3/uL (150-450); RED BLOOD COUNT 3.51 10^6/uL (4.00-5.40); WHITE BLOOD COUNT 5.1 10^3/uL (4.0-10.0)
[2021-01-07 06:52] LABS: CALCIUM LEVEL 8.5 MG/DL (8.5-10.1); CREATININE FOR GFR 1.2 MG/DL (0.55-1.30); POTASSIUM SERUM 3.9 MEQ/L (3.5-5.1)
[2021-01-07] MEDS: oxyBUTYnin 5 MG TAB PO SCH ×2 (08:17→22:20)
[2021-01-07] MEDS: HumaLOG INSULIN (NovoLOG) PER UNIT SC SCH ×4 (08:17→22:21)
[2021-01-07] MEDS: busPIRone 10 MG TAB PO SCH ×2 (08:17→22:19)
[2021-01-07] MEDS: VITAMIN D (CHOLECALCIFEROL) 400 INTERNATIONAL UNITS TAB PO SCH ×2 (08:17→22:20)
[2021-01-07] MEDS: CALCIUM CARBONATE 500 MG CHEW U/D PO SCH ×2 (08:17→22:20)
[2021-01-07] MEDS: cefTRIAXone SOD 1 GM in D5W MINI-BAG PLUS 50 ML IV SCH (08:17)
[2021-01-07] MEDS: GABAPENTIN 100 MG CAP PO SCH ×3 (08:18→22:20)
[2021-01-07] MEDS: SPIRONOLACTONE 50 MG TAB PO SCH ×2 (08:18→17:04)
[2021-01-07] MEDS: DULoxetine 30 MG CAP (CYMBALTA) PO SCH ×2 (08:18→22:20)
[2021-01-07] MEDS: OMEPRAZOLE 20 MG CAP PO SCH ×2 (08:18→22:20)
[2021-01-07] MEDS: DOCUSATE SODIUM 100MG CAPSULE PO SCH ×2 (08:18→22:20)
[2021-01-07] MEDS: LORATADINE 10 MG TAB PO SCH (08:18)
[2021-01-07] MEDS: FUROSEMIDE 20 MG TAB PO SCH (08:18)
[2021-01-07] MEDS: LACTOBACILLUS ACIDOPHILUS CAP (BACID) PO SCH ×3 (08:18→17:03)
[2021-01-07] MEDS: CLOPIDOGREL 75 MG TAB PO SCH (08:18)
[2021-01-07] MEDS: FLUTICASONE PROP 0.05% NASAL SPRAY 16 GM (FLONASE) NARES SCH (08:19)
[2021-01-07] MEDS: NYSTATIN 100,000 UNITS/GM TOPICAL PWD 15 GM TOP SCH ×2 (08:19→22:21)
[2021-01-07 14:00] VITALS: BP 121/61
[2021-01-07] MEDS: oxyCODONE 5MG TAB PO PRN ×2 (15:49→22:23)
--- NOTE | 2021-01-07 17:24 | IPNPDOC ---
Subjective Date Seen The patient was seen on 01/07/21. Subjective Chief Complaint/HPI Mrs. Evans is a 60-year-old female from [facility] with cirrhosis who presents with altered mental status and right-sided weakness. She is able to have a bowel movement yesterday evening. Otherwise this morning denies any chest pain or dyspnea. Objective Physical Examination General Exam: Positive: Cooperative Eye Exam: Negative: Sclera icteric ENT Exam: Positive: Atraumatic Neck Exam: Positive: Supple Chest Exam: Positive: Clear to auscultation; Negative: Rales, Rhonchi, Wheezing Heart Exam: Positive: Rate Normal, Regular Rhythm Abdomen Exam: Positive: Normal bowel sounds, Soft; Negative: Tenderness Extremity Exam: Positive: Edema Neuro Exam: Positive: Other (she is no longer leaning to the right) Psych Exam: Negative: Mental status NL Assessment /Plan Assessment Mrs. Evans is a 60-year-old female from [facility] with cirrhosis who presents with altered mental status and right-sided weakness. The cause of her cirrhosis has been documented inconsistently. 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 But her altered mental status and from hepatic encephalopathy. She does exhibit right-sided weakness concerning for stroke. Aspirin is contraindicated in patients with severe liver disease. Neurology is okay for use Plavix instead if INR is normal. (INR was normal and patient was loaded with Plavix). Neurology is wary of use of statin in patient with cirrhosis, especially if patient's cirrhosis is medication induced. LDL was 75. We'll hold off on statin at this time. After left shows the day after, she appears to be better. The right-sided w eakness resolved. Patient he mentally stronger but still confused. She asked to sit in a chair when she was already in a chair. Currently pending a MRI Patient had an MRI, negative for acute stroke or intracranial atherosclerosis. Echocardiogram was negative for shunting or thrombus/embolus She was able to have a bowel movement. Ammonia trended downward today. Plan to return to [facility] on Saturday Plan/VTE VTE Prophylaxis Ordered?: Yes Plan 1. Acute hepatic encephalopathy in the setting of hyperammonemia with confusion in the setting of elevated ammonia due to noncompliance Ammonia elevated at 138 on admission Patient reports noncompliance with lactulose Continue lactulose and monitoring ammonia She had a bowel movement with the addition of Colace 2. Right-sided weakness Resolved CT head, MRI, MRA, carotid ultrasounds are negative Pending echocardiogram with bubble Patient was loaded with Plavix and continued with Plavix as aspirin is contraindicated in patients with severe liver disease LDL was 75. Due to patient's cirrhosis we'll hold off on statin at this time 3. Cirrhosis -Continue furosemide, spironolactone, and rifaximin 4. Diabetes mellitus -Start sliding scale insulin -Carbohydrate consistent diet 5. Anxiety/Depression -Buspirone and duloxetine 6. Insomnia Added on Seroquel 7. UTI Patient reports dysuria UA demonstrates pyuria and bacteria On ceftriaxone Pending urine culture results 8. DVT ppx -Lovenox Disposition: Ready to return to [facility] on Saturday VS, I&O, 24H, Fishbone Vital Signs/I&O Vital Signs Date Time Temp Pulse Resp B/P (MAP) Pulse Ox O2 Delivery O2 Flow Rate FiO2 01/07/21 16:28 18 01/07/21 15:49 Room Air 01/07/21 14:00 97.3 87 121/61 (81) 95 I&O- Last 24 Hours up to 6 AM 01/07/21 06:00 Intake Total 2770 ml Output Total 3650 ml Balance -880 ml Laboratory Data 24H LABS Laboratory Tests 2 01/06/21 19:32: Bedside Glucose (Misc Panel) 303H 01/07/21 06:00: Nucleated Red Blood Cells % (auto) 0.0, Anion Gap 7L, Glomerular Filtration Rate 49.0L, Calcium Level 8.5, Ammonia 81H 01/07/21 16:37: Bedside Glucose (Misc Panel) 250H CBC/BMP Laboratory Tests 01/07/21 06:00 Microbiology Microbiology 01/05/21 Urine Culture - Final, Complete TAWANNA FARMER DO Jan 07, 2021 17:24
[2021-01-07 22:00] VITALS: BP 132/73
[2021-01-07] MEDS: RAMELTEON 8 MG TAB (ROZEREM) PO SCH (22:20)
[2021-01-07] MEDS: QUEtiapine FUMARATE 25 MG TAB PO SCH (22:20)
[2021-01-08 05:56] LABS: HEMOGLOBIN 12.9 g/dl (12.0-15.5); MEAN CORPUSCULAR HEMOGLOBIN 37.8 pg (27.0-33.0); MEAN CORPUSCULAR HGB CONC 34.9 g/dl (32.0-36.5); MEAN CORPUSCULAR VOLUME 108.5 fl (80.0-96.0); PLATELET COUNT, AUTOMATED 133 10^3/uL (150-450); RED BLOOD COUNT 3.41 10^6/uL (4.00-5.40); WHITE BLOOD COUNT 5.2 10^3/uL (4.0-10.0)
[2021-01-08 06:00] VITALS: BP 106/56
[2021-01-08] MEDS: LACTULOSE 20 GM/30 ML SYRUP UD PO SCH ×4 (06:08→23:00)
[2021-01-08 06:20] LABS: CREATININE FOR GFR 1.18 MG/DL (0.55-1.30); GLOMERULAR FILTRATION RATE 49.9 (>51)
[2021-01-08] MEDS: DULoxetine 30 MG CAP (CYMBALTA) PO SCH ×2 (08:50→21:07)
[2021-01-08] MEDS: LORATADINE 10 MG TAB PO SCH (08:50)
[2021-01-08] MEDS: HumaLOG INSULIN (NovoLOG) PER UNIT SC SCH ×4 (08:50→21:08)
[2021-01-08] MEDS: NYSTATIN 100,000 UNITS/GM TOPICAL PWD 15 GM TOP SCH ×2 (08:50→21:09)
[2021-01-08] MEDS: busPIRone 10 MG TAB PO SCH ×2 (08:50→21:07)
[2021-01-08] MEDS: FLUTICASONE PROP 0.05% NASAL SPRAY 16 GM (FLONASE) NARES SCH (08:50)
[2021-01-08] MEDS: CALCIUM CARBONATE 500 MG CHEW U/D PO SCH ×2 (08:51→21:08)
[2021-01-08] MEDS: VITAMIN D (CHOLECALCIFEROL) 400 INTERNATIONAL UNITS TAB PO SCH ×2 (08:51→21:08)
[2021-01-08] MEDS: DOCUSATE SODIUM 100MG CAPSULE PO SCH ×2 (08:51→21:07)
[2021-01-08] MEDS: FUROSEMIDE 20 MG TAB PO SCH (08:51)
[2021-01-08] MEDS: oxyBUTYnin 5 MG TAB PO SCH ×2 (08:51→21:07)
[2021-01-08] MEDS: SENNA 8.6 MG TAB (SENOKOT) PO SCH (08:52)
[2021-01-08] MEDS: OMEPRAZOLE 20 MG CAP PO SCH ×2 (08:52→21:08)
[2021-01-08] MEDS: CLOPIDOGREL 75 MG TAB PO SCH (08:52)
[2021-01-08] MEDS: SPIRONOLACTONE 50 MG TAB PO SCH ×2 (08:52→16:53)
[2021-01-08] MEDS: LACTOBACILLUS ACIDOPHILUS CAP (BACID) PO SCH ×3 (08:52→16:53)
[2021-01-08] MEDS: GABAPENTIN 100 MG CAP PO SCH ×3 (08:52→21:07)
[2021-01-08] MEDS: oxyCODONE 5MG TAB PO PRN (08:53)
[2021-01-08 11:34] VITALS: BP 119/72
--- NOTE | 2021-01-08 12:58 | IPNPDOC ---
Subjective Date Seen The patient was seen on 01/08/21. Subjective Chief Complaint/HPI Mrs. Evans is a 60-year-old female from [facility] with cirrhosis who presents with altered mental status and right-sided weakness. She was seen in the morning. Denies any chest pain or dyspnea. Denies any abdominal pain. Plan to return to [facility] on Saturday Objective Physical Examination General Exam: Positive: Cooperative Eye Exam: Negative: Sclera icteric ENT Exam: Positive: Atraumatic Neck Exam: Positive: Supple Chest Exam: Positive: Clear to auscultation; Negative: Rales, Rhonchi, Wheezing Heart Exam: Positive: Rate Normal, Regular Rhythm Abdomen Exam: Positive: Normal bowel sounds, Soft; Negative: Tenderness Extremity Exam: Positive: Edema Neuro Exam: Positive: Other (she is no longer leaning to the right) Psych Exam: Negative: Mental status NL Assessment /Plan Assessment Mrs. Evans is a 60-year-old female from [facility] with cirrhosis who presents with altered mental status and right-sided weakness. The cause of her cirrhosis has been documented inconsistently. 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 But her altered mental status and from hepatic encephalopathy. She does exhibit right-sided weakness concerning for stroke. Aspirin is cont raindicated in patients with severe liver disease. Neurology is okay for use Plavix instead if INR is normal. (INR was normal and patient was loaded with Plavix). Neurology is wary of use of statin in patient with cirrhosis, especially if patient's cirrhosis is medication induced. LDL was 75. We'll hold off on statin at this time. Patient had an MRI, negative for acute stroke or intracranial atherosclerosis. Echocardiogram was negative for shunting or thrombus/embolus She was able to have a bowel movement. Ammonia trended downward today. Plan to return to [facility] on Saturday Plan/VTE VTE Prophylaxis Ordered?: Yes Plan 1. Acute hepatic encephalopathy in the setting of hyperammonemia with confusion in the setting of elevated ammonia due to noncompliance Ammonia elevated at 138 on admission Patient reports noncompliance with lactulose Continue lactulose and monitoring ammonia Continue Colace add on senna 2. Right-sided weakness Resolved CT head, MRI, MRA, carotid ultrasounds are negative Pending echocardiogram with bubble Patient was loaded with Plavix and continued with Plavix as aspirin is contraindicated in patients with severe liver disease LDL was 75. Due to patient's cirrhosis we'll hold off on statin at this time 3. Cirrhosis -Continue furosemide, spironolactone, and rifaximin 4. Diabetes mellitus -Start sliding scale insulin -Carbohydrate consistent diet 5. Anxiety/Depression -Buspirone and duloxetine 6. Insomnia Added on Seroquel 7. UTI Patient reports dysuria UA demonstrates pyuria and bacteria Urine culture appears contaminated Patient really had 3 days of ceftriaxone. Ceftriaxone discontinued 8. DVT ppx -Lovenox Disposition: Ready to return to [facility] on Saturday VS, I&O, 24H, Fishbone Vital Signs/I&O Vital Signs Date Time Temp Pulse Resp B/P (MAP) Pulse Ox O2 Delivery O2 Flow Rate FiO2 01/08/21 11:34 98.3 81 18 119/72 (88) 97 Room Air I&O- Last 24 Hours up to 6 AM 01/08/21 06:00 Intake Total 1730 ml Output Total 2600 ml Balance -870 ml Laboratory Data 24H LABS Laboratory Tests 2 01/07/21 16:37: Bedside Glucose (Misc Panel) 250H 01/07/21 20:04: Bedside Glucose (Misc Panel) 289H 01/08/21 05:41: Nucleated Red Blood Cells % (auto) 0.0, Anion Gap 5L, Glomerular Filtration Rate 49.9L, Calcium Level 8.0L, Ammonia 52H 01/08/21 09:31: Bedside Glucose (Misc Panel) 242H 01/08/21 11:33: Bedside Glucose (Misc Panel) 246H CBC/BMP Laboratory Tests 01/08/21 05:41 Microbiology Microbiology 01/05/21 Urine Culture - Final, Complete TAWANNA FARMER DO Jan 08, 2021 12:58
[2021-01-08] MEDS ORDERED: BISACODYL ENEMA 10 MG/30 ML PR PRN (13:45)
[2021-01-08 14:00] VITALS: BP 128/61
[2021-01-08] MEDS: LIDOCAINE 5% (LIDODERM) PATCH TD SCH (14:00)
[2021-01-08] MEDS ORDERED: BISACODYL 10 MG SUPP PR ONE (14:30)
[2021-01-08] MEDS ORDERED: KETOROLAC 30 MG/ML 1ML VIAL IV ONE (18:40)
[2021-01-08] MEDS ORDERED: QUEtiapine FUMARATE 12.5 MG HALF-TAB PO SCH (21:00)
[2021-01-08] MEDS ORDERED: **NOTE PATIENT COMMENT** MISC XX SCH (21:00)
[2021-01-08] MEDS: RAMELTEON 8 MG TAB (ROZEREM) PO SCH (21:08)
[2021-01-08 22:00] VITALS: BP 119/67
[2021-01-09] MEDS: LACTULOSE 20 GM/30 ML SYRUP UD PO SCH (05:13)
[2021-01-09 06:00] VITALS: BP 117/66
[2021-01-09 06:05] LABS: HEMATOCRIT 36.7 % (36.0-47.0); HEMOGLOBIN 12.9 g/dl (12.0-15.5); MEAN CORPUSCULAR HEMOGLOBIN 37.7 pg (27.0-33.0); MEAN CORPUSCULAR HGB CONC 35.1 g/dl (32.0-36.5); MEAN CORPUSCULAR VOLUME 107.3 fl (80.0-96.0); PLATELET COUNT, AUTOMATED 135 10^3/uL (150-450); RED BLOOD COUNT 3.42 10^6/uL (4.00-5.40); WHITE BLOOD COUNT 6.3 10^3/uL (4.0-10.0)
[2021-01-09 06:34] LABS: CALCIUM LEVEL 8.4 MG/DL (8.5-10.1); CREATININE FOR GFR 1.3 MG/DL (0.55-1.30); GLOMERULAR FILTRATION RATE 44.6 (>51)
[2021-01-09] MEDS: LORATADINE 10 MG TAB PO SCH (08:04)
[2021-01-09] MEDS: OMEPRAZOLE 20 MG CAP PO SCH (08:04)
[2021-01-09] MEDS: HumaLOG INSULIN (NovoLOG) PER UNIT SC SCH (08:04)
[2021-01-09] MEDS: GABAPENTIN 100 MG CAP PO SCH (08:05)
[2021-01-09] MEDS: SENNA 8.6 MG TAB (SENOKOT) PO SCH (08:05)
[2021-01-09] MEDS: DULoxetine 30 MG CAP (CYMBALTA) PO SCH (08:05)
[2021-01-09] MEDS: DOCUSATE SODIUM 100MG CAPSULE PO SCH (08:05)
[2021-01-09] MEDS: CLOPIDOGREL 75 MG TAB PO SCH (08:05)
[2021-01-09] MEDS: LACTOBACILLUS ACIDOPHILUS CAP (BACID) PO SCH (08:05)
[2021-01-09] MEDS: busPIRone 10 MG TAB PO SCH (08:05)
[2021-01-09] MEDS: FUROSEMIDE 20 MG TAB PO SCH (08:05)
[2021-01-09] MEDS: oxyBUTYnin 5 MG TAB PO SCH (08:06)
[2021-01-09] MEDS: VITAMIN D (CHOLECALCIFEROL) 400 INTERNATIONAL UNITS TAB PO SCH (08:06)
[2021-01-09] MEDS: CALCIUM CARBONATE 500 MG CHEW U/D PO SCH (08:06)
[2021-01-09] MEDS: LIDOCAINE 5% (LIDODERM) PATCH TD SCH (08:07)
[2021-01-09] MEDS: NYSTATIN 100,000 UNITS/GM TOPICAL PWD 15 GM TOP SCH (08:08)
[2021-01-09] MEDS ORDERED: BISA10EN PR (08:38)
[2021-01-09] MEDS ORDERED: SENN18TA PO (08:38)
[2021-01-09] MEDS ORDERED: CLOP75TA2 PO (08:38)
[2021-01-09] MEDS ORDERED: DOK1CAP7 PO (08:38)
[2021-01-09] MEDS: SPIRONOLACTONE 50 MG TAB PO SCH (10:48)
[2021-01-09] MEDS: FLUTICASONE PROP 0.05% NASAL SPRAY 16 GM (FLONASE) NARES SCH (10:49)
--- NOTE | 2021-01-09 23:51 | DS.PDOC ---
Discharge Summary General Date of Admission Jan 03, 2021 at 17:48 Date of Discharge Jan 09, 2021 Discharge Summary PROCEDURES PERFORMED DURING STAY: [None]. ADMITTING DIAGNOSES: 1. . DISCHARGE DIAGNOSES: 1. . COMPLICATIONS/CHIEF COMPLAINT: Acute Hepatic Encephalopathy/Right Sided Weakness. HISTORY OF PRESENT ILLNESS: . HOSPITAL COURSE: . DISCHARGE MEDICATIONS: Please see below. ALLERGIES: Please see below. PHYSICAL EXAMINATION ON DISCHARGE: VITAL SIGNS: Please see below. GENERAL: HEENT: NECK: CARDIOVASCULAR EXAMINATION: RESPIRATORY EXAMINATION: ABDOMINAL EXAMINATION: EXTREMITIES: SKIN: NEUROLOGICAL EXAMINATION: PSYCHIATRIC EXAMINATION: LABORATORY DATA: Please see below. IMAGING: PROGNOSIS: ACTIVITY: [As tolerated]. DIET: DISCHARGE PLAN: DISPOSITION: [facility]. DISCHARGE INSTRUCTIONS: 1. . ITEMS TO FOLLOWUP ON ON OUTPATIENT: 1. . DISCHARGE CONDITION: [Stable]. TIME SPENT ON DISCHARGE: Greater than minutes. Vital Signs/I&Os Vital Signs Date Time Temp Pulse Resp B/P (MAP) Pulse Ox O2 Delivery O2 Flow Rate FiO2 01/09/21 06:00 96.5 78 16 117/66 (83) 95 Room Air I&O- Last 24 Hours up to 6 AM 01/09/21 06:00 Intake Total 2825 ml Output Total 2475 ml Balance 350 ml Laboratory Data Labs 24H Laboratory Tests 2 01/09/21 05:52: Nucleated Red Blood Cells % (auto) 0.0, Anion Gap 8, Glomerular Filtration Rate 44.6L, Calcium Level 8.4L, Ammonia 52H 01/09/21 07:55: Bedside Glucose (Misc Panel) 189H 01/09/21 09:51: Coronavirus (COVID-19)(PCR) NEGATIVE CBC/BMP Laboratory Tests 01/09/21 05:52 FSBS Laboratory Tests Test 01/09/21 07:55 Range/Units Bedside Glucose (Misc Panel) 189 70-105 MG/DL Microbiology Microbiology 01/05/21 Urine Culture - Final, Complete Discharge Medications Scheduled Buspirone HCl (Buspirone HCl) 30 Mg Tablet, 30 MG PO BID, (Reported) Calcium Carbonate (Antacid) 200 Mg Tab.chew, 500 MG PO BID, (Reported) Cholecalciferol (Vitamin D3) (Vitamin D-400) 10 Mcg Tablet, 400 UNIT PO BID, (Reported) Clopidogrel Bisulfate (Clopidogrel) 75 Mg Tablet, 75 MG PO DAILY Docusate Sodium (Dok) 100 Mg Capsule, 100 MG PO BID Dulaglutide (Trulicity) 1.5 Mg/0.5 Ml Pen.injctr, 1.5 MG SQ QWEEK, (Reported) SUNDAYS AT 1800 Duloxetine Hcl (Duloxetine HCl) 60 Mg Capsule.dr, 60 MG PO BID, (Reported) Fluticasone Propionate (Flonase Allergy Relief) 9.9 Ml [place].susp, 2 SPRAY NARES DAILY, (Reported) Furosemide (Furosemide) 20 Mg Tab, 20 MG PO DAILY, (Reported) Gabapentin (Gabapentin) 100 Mg Capsule, 100 MG PO TID, (Reported) Lactulose (Lactulose) 10 Gm/15 Ml Solution, 30 ML PO QID, (Reported) Loratadine (Loratadine) 10 Mg Tablet, 10 MG PO DAILY, (Reported) Melatonin (Melatonin) 1 Mg Tablet, 3 MG PO QHS, (Reported) Omeprazole (Omeprazole) 40 Mg Cap, 40 MG PO BID, (Reported) BEFORE BREAKFAST AND DINNER Oxybutynin Chloride (Oxybutynin Chloride) 5 Mg Tablet, 2.5 MG PO BID, (Reported) Rifaximin (Xifaxan) 200 Mg Tablet, 400 MG PO BID, (Reported) Senna (Senna Lax) 8.6 Mg Tablet, 2 TAB PO DAILY Spironolactone (Spironolactone) 50 Mg Tablet, 50 MG PO BID, (Reported) Scheduled PRN Bisacodyl (Bisacodyl) 10 Mg/30 Ml Enema, 10 MG RI DAILY PRN for CONSTIPATION Nystatin (Nystatin Powder) 15 Gm Powder, 1 DOSE TOP PRN PRN for ANTIFUNGAL, (Reported) Rizatriptan Benzoate (Rizatriptan) 10 Mg Tab, 10 MG PO DAILY PRN for MIGRAINE, (Reported) Allergies Coded Allergies: ciprofloxacin (Verified Allergy, Intermediate, HIVES, CHILLS, AND FELT LIGHT HEADED, 10/28/19) fluconazole (Verified Allergy, Intermediate, HIVES, 10/28/19) latex (Verified Allergy, Intermediate, HIVES AND RASH ON HANDS, 10/28/19) strawberry (Verified Allergy, Unknown, 10/28/19) TAWANNA FARMER DO Jan 09, 2021 23:51
== END 2021-01-09 11:52 | DRG 442 ==
LOC: M ED 15:38 → EDBD 15:38 → M ED INP 15:39 → OBSVTOIN 17:48 → ENRESERV 19:23 → M MSPAV 20:25
PROVIDERS: ADMIT Internal Medicine; ATTEND Internal Medicine
DX: K72.90 Hepatic failure, unspecified without coma (principal); N39.0 Urinary tract infection, site not specified; Z79.899 Other long term (current) drug therapy; Z91.040 Latex allergy status; Z91.018 Allergy to other foods; Z88.8 Allergy status to other drugs, medicaments and biological substances; K21.9 Gastro-esophageal reflux disease without esophagitis; G43.909 Migraine, unspecified, not intractable, without status migrainosus; E66.01 Morbid (severe) obesity due to excess calories; K74.60 Unspecified cirrhosis of liver; E78.5 Hyperlipidemia, unspecified; E11.9 Type 2 diabetes mellitus without complications; M54.5 Low back pain; M54.2 Cervicalgia; F41.9 Anxiety disorder, unspecified; F32.9 Major depressive disorder, single episode, unspecified; G47.00 Insomnia, unspecified

== ENCOUNTER 2021-01-17 19:08 | Inpatient (IN) | payer MEDICARE, MEDICAID ==
[~2021-01-17] VITALS: Ht 157.5 cm; Wt 88.9 kg
[~2021-01-17 19:08] MED LIST changes: +BISA10EN PR; +CLOP75TA2 PO; +DOK1CAP7 PO; +FLON1SPR; -FLON1SPR NARES; +GABA-1171 PO; +MELA1TAB3 PO; +MELA1TAB31 PO; +SENN18TA PO; +SPIR50TA4 PO; -TRUL0.5I SQ
[2021-01-17 20:09] LABS: BASO % 0.6 % (0.0-1.0); EOS # 0.4 10^3/uL (0.0-0.5); EOS % 5.7 % (0.0-3.0); HEMATOCRIT 39.4 % (36.0-47.0); HEMOGLOBIN 13.6 g/dl (12.0-15.5); LYMPH # 2.2 10^3/uL (1.5-5.0); LYMPH % 33.5 % (24.0-44.0); MEAN CORPUSCULAR HEMOGLOBIN 37.3 pg (27.0-33.0); MEAN CORPUSCULAR HGB CONC 34.5 g/dl (32.0-36.5); MEAN CORPUSCULAR VOLUME 107.9 fl (80.0-96.0); MONO # 0.7 10^3/uL (0.0-0.8); MONO % 10.2 % (2.0-8.0); NEUTROPHILS # 3.2 10^3/uL (1.5-8.5); NEUTROPHILS % 49.4 % (36.0-66.0); PLATELET COUNT, AUTOMATED 140 10^3/uL (150-450); RED BLOOD COUNT 3.65 10^6/uL (4.00-5.40); WHITE BLOOD COUNT 6.5 10^3/uL (4.0-10.0)
[2021-01-17 20:37] LABS: ALBUMIN 3.1 GM/DL (3.2-5.2); ALT/SGPT 29 U/L (12-78); BILIRUBIN,DIRECT 0.3 MG/DL (0.0-0.2); BILIRUBIN,TOTAL 0.6 MG/DL (0.2-1.0); CK-MB VALUE MASS < 1.0 NG/ML (<3.6); CPK CREATINE PHOSPHOKINASE 53 U/L (26-192); MB/CK RELATIVE INDEX 1.89 (< OR =4); TOTAL PROTEIN 6.4 GM/DL (6.4-8.2); TROPONIN I < 0.02 NG/ML (< 0.10)
[2021-01-17] MEDS ORDERED: DULoxetine 30 MG CAP (CYMBALTA) PO SCH (21:00)
[2021-01-17 21:48] LABS: RSV AMPLIFICATION NEGATIVE (NEGATIVE)
--- NOTE | 2021-01-17 22:03 | REPVR ---
PROCEDURE INFORMATION: Exam: XR Chest Exam date and time: 01/17/21 (9:07pm) Age: 60 years old Clinical indication: AMS TECHNIQUE: Imaging protocol: Portable CXR Views: 1 view COMPARISON: Portable CXR of 01/03/21 FINDINGS: Lungs: Unremarkable. No consolidation. Pleural spaces: Unremarkable. No pleural effusions. No pneumothorax. Heart/Mediastinum: Unremarkable. No cardiomegaly. Bones/joints: S/P cervical spine fusion surgery (partially imaged). IMPRESSION: No acute findings. Electronically signed by: Vicenta Beck On 01/17/2021 22:03:30 PM
[2021-01-17] MEDS ORDERED: LACTULOSE 20 GM/30 ML SYRUP UD PO ONE (22:05)
[2021-01-17] MEDS ORDERED: POTASSIUM CHLORIDE 10 MEQ SR TABLET PO ONE (22:05)
[2021-01-17] MEDS ORDERED: VITA1TAB26 PO (22:25)
[2021-01-17] MEDS ORDERED: CALC500T61 PO (22:25)
[2021-01-17] MEDS ORDERED: DOCU100C17 PO (22:25)
[2021-01-17] MEDS ORDERED: SENN8.6T28 PO (22:25)
[2021-01-17] MEDS ORDERED: CLOP75TA2 PO (22:25)
[2021-01-17] MEDS ORDERED: BISA10EN PR (22:25)
[2021-01-17] MEDS ORDERED: NYSTATIN 100,000 UNITS/GM TOPICAL PWD 15 GM TOP PRN (22:55)
[2021-01-17] MEDS ORDERED: BISACODYL ENEMA 10 MG/30 ML PR PRN (22:55)
--- NOTE | 2021-01-17 23:12 | HPEPDOC ---
[facility] Medical History & Physical Date of Admission Jan 17, 2021 Date of Service: Jan 17, 2021 Attending Physician: KRISTEL ARAUJO MD History and Physical CHIEF COMPLAINT: confusion HISTORY OF PRESENT ILLNESS: 60 year old female with PMHx stated below presents with 1 day of confusion and "not feeling like herself". Patient states her symptoms began this morning when she woke up. She states she was feeling "off". She states she had an appointment with the orthopedic in [place] today regarding her low back pain. She did attend the appointment and had a ride provided. She states that on the way back her symptoms started to get worse. She states she began to have more trouble finding the right words and remembering things. She also notes some paresthesias in her legs but cannot recall if these are new or chronic. During my interview with the patient she did state multiple incorrect things such as that she was discharged from [facility] yesterday when she was actually discharged on January 09. The patient is oriented x4 to person, place, time, and situation. She also had difficultly recalling her medical history. Patient states she is taking her lactulose four times a day as prescribed. However, it is unclear if this is reliable given her confusion and history of medical noncompliance. Patient is a poor historian; some of the history is obtained by chart review. PAST MEDICAL HISTORY: 1. Medication induced cirrhosis 2. Diabetes mellitus 3. Hyperlipidemia 4. Chronic back/neck pain 5. Morbid obesity 6. Remote history of alcohol use disorder and opiate dependence 7. GERD 8. Migraine headaches PAST SURGICAL HISTORY: 1. Appendectomy 2. Cholecystectomy 3. Multiple back surgeries 4. Hip replacement 5. Neftali-en-Y gastrojejunostomy SOCIAL HISTORY: Former smoker. Denies current alcohol use but admits to heavy use many years ago. Lives at [facility] assisted living. FAMILY HISTORY: Father had a history of heart disease on chart review, otherwise patient cannot recall. ALLERGIES: Please see below. REVIEW OF SYSTEMS: CONSTITUTIONAL: Denies fevers, chills, night sweats, fatigue, unexpected change in weight. HEENT: Denies change in vision, change in hearing. CARDIOVASCULAR: Denies chest pain, palpitations, shortness of breath, lightheadedness. RESPIRATORY: Denies dyspnea, cough, wheezing. GASTROINTESTINAL: Denies nausea, vomiting, abdominal pain, diarrhea, blood in stool. GENITOURINARY: Endorses chronic urinary incontinence secondary to back surgeries SKIN: Denies rash, lesions. MUSCULOSKELETAL: Endorses chronic back pain and neck pain NEUROLOGICAL: Positive per HPI. Denies headache, dizziness. PSYCHIATRIC: Denies change in mood. HOME MEDICATIONS: Please see below. PHYSICAL EXAMINATION: VITAL SIGNS: see below GENERAL: Alert, comfortable, in no acute distress HEENT: Normocephalic, atraumatic, PERRLA, EOMI, sclera anicteric, moist mucous membranes NECK: Supple, trachea midline, no lymphadenopathy, no JVD CARDIOVASCULAR: Regular rate and rhythm, normal S1 and S2. No murmurs, rubs, or gallops RESPIRATORY: Clear to auscultation bilaterally with equal air entry bilaterally. No wheezing, rhonchi, or rales. ABDOMEN: Obese, soft, nontender, nondistended, bowel sounds present, no masses or hepatosplenomegaly appreciated EXTREMITIES: No cyanosis or edema. Pulses 2+/4 in bilateral upper and lower extremities SKIN: [place], warm, dry NEUROLOGIC: Alert and oriented x4 to person, place, time, and situation. Cranial nerves 2-12 grossly intact. Some difficulty with word finding and memory. PSYCHIATRIC: Mood and affect appropriate LABORATORY DATA: See below. IMAGING: (per radiologist report) - CXR No acute findings MICROBIOLOGY: Please see below. ASSESSMENT: 60 year old female with a history of liver cirrhosis and medical noncompliance presents with 1 day of confusion and "not feeling like herself" found to have an ammonia level of 143, admitted for management of hepatic encephalopathy. PLAN: 1. Hepatic encephalopathy - likely related to medical noncompliance - Lactulose 30 ml q6h for a goal of 2-3 BM per day. - Continue with colace and senna daily as well. PRN fleet enema. - Trend ammonia level daily 2. Medication induced liver cirrhosis, decompensated -Decompensated with hepatic encephalopathy -Per patient, no hx of esophageal varices, ascites, or jaundice. However, she is a poor historian. -Continue home furosemide, spironolactone, and rifaximin 3. Diabetes mellitus - hold home meds - consistent carb diet with SSI ACHS 4. Urinary retention and incontinence - continue oxybutynin, self cath as needed - external female catheter while inpatient for comfort 5. Anxiety/depression - continue cymbalta and buspirone 6. Hx of TIA - continue plavix 7. Chronic back pain - continue gabapentin and lidocaine patch 8. GERD and hx of gastric bypass - continue PPI DVT Prophylaxis: SC Lovetamarax Disposition: admitted inpatient to med/surg expect greater than two midnights stay Vital Signs Vital Signs Date Time Temp Pulse Resp B/P (MAP) Pulse Ox O2 Delivery O2 Flow Rate FiO2 01/17/21 22:45 98.7 78 18 137/88 (104) 100 01/17/21 21:00 Room Air Laboratory Data Labs 24H Laboratory Tests 2 01/17/21 19:56: Immature Granulocyte % (Auto) 0.6, Neutrophils (%) (Auto) 49.4, Lymphocytes (%) (Auto) 33.5, Monocytes (%) (Auto) 10.2H, Eosinophils (%) (Auto) 5.7H, Basophils (%) (Auto) 0.6, Neutrophils # (Auto) 3.2, Lymphocytes # (Auto) 2.2, Monocytes # (Auto) 0.7, Eosinophils # (Auto) 0.4, Basophils # (Auto) 0.0, Nucleated Red Blood Cells % (auto) 0.0, Total Bilirubin 0.6, Direct Bilirubin 0.3H, Aspartate Amino Transf (AST/SGOT) 28, Alanine Aminotransferase (ALT/SGPT) 29, Alkaline Phosphatase 110, Ammonia 143H, Total Creatine Kinase 53, Creatine Kinase MB < 1.0, Creatine Kinase MB Relative Index 1.89, Troponin I < 0.02, Total Protein 6.4, Albumin 3.1L, Albumin/Globulin Ratio 0.9L, Thyroid Stimulating Hormone (TSH) 1.450 01/17/21 20:23: POC Glucose (Misc Panel) 192H, POC Sodium (Misc Panel) 143, POC Potassium (Misc Panel) 3.1L, POC Chloride (Misc Panel) 109, POC Total CO2 (Misc Panel) 19.0L, POC Blood Urea Nitrogen (Misc Panel 12, POC Ionized Calcium (Misc Panel) 3.8L, POC Creatinine (Misc Panel) 0.7, POC Hematocrit (Misc Panel) 32.0L 01/17/21 20:55: Coronavirus (COVID-19)(PCR) NEGATIVE, Influenza Type A (RT-PCR) NEGATIVE, Influenza Type B (RT-PCR) NEGATIVE, Respiratory Syncytial Virus (PCR) NEGATIVE CBC/BMP Laboratory Tests 01/17/21 19:56 Home Medications Scheduled Buspirone HCl (Buspirone HCl) 30 Mg Tablet, 30 MG PO BID Calcium Carbonate (Calcium Carbonate) 500 Mg Tablet, 500 MG PO BID Cholecalciferol (Vitamin D3) (Vitamin D3) 10 Mcg Tablet, 10 MCG PO BID 0600, 2000 Clopidogrel Bisulfate (Clopidogrel) 75 Mg Tablet, 75 MG PO DAILY TAKES AT 1300 Docusate Sodium (Docusate Sodium) 100 Mg Capsule, 100 MG PO BID Dulaglutide (Trulicity) 1.5 Mg/0.5 Ml Pen.injctr, 1.5 MG SC QWEEK SUNDAYS AT 1800 Duloxetine Hcl (Duloxetine HCl) 60 Mg Capsule.dr, 60 MG PO BID Fluticasone Propionate (Flonase Allergy Relief) 9.9 Ml [place].susp, 2 SPRAYS NA DAILY Furosemide (Furosemide) 20 Mg Tab, 20 MG PO DAILY Gabapentin (Gabapentin) 100 Mg Capsule, 100 MG PO TID Lactulose (Lactulose) 10 Gm/15 Ml Solution, 30 ML PO QID Loratadine (Loratadine) 10 Mg Tablet, 10 MG PO DAILY Melatonin (Melatonin) 1 Mg Tablet, 3 MG PO QHS Omeprazole (Omeprazole) 40 Mg Cap, 40 MG PO BID BEFORE BREAKFAST AND DINNER Oxybutynin Chloride (Oxybutynin Chloride) 5 Mg Tablet, 2.5 MG PO BID Rifaximin (Xifaxan) 200 Mg Tablet, 400 MG PO BID Sennosides (Senna) 8.6 Mg Tablet, 2 TAB PO DAILY TAKES AT 1300 Spironolactone (Spironolactone) 50 Mg Tablet, 50 MG PO BID Scheduled PRN Bisacodyl (Bisacodyl) 10 Mg/30 Ml Enema, 10 MG [place] DAILY PRN for CONSTIPATION STARTED 01/09/21, ENDS 01/18/21 Nystatin (Nystatin Powder) 15 Gm Powder, 1 DOSE TOP ASDIRECTED PRN for ANTIFUNGAL Rizatriptan Benzoate (Rizatriptan) 10 Mg Tab, 10 MG PO DAILY PRN for MIGRAINE Allergies Coded Allergies: ciprofloxacin (Verified Allergy, Intermediate, HIVES, CHILLS, AND FELT LIGHT HEADED, 10/28/19) fluconazole (Verified Allergy, Intermediate, HIVES, 10/28/19) latex (Verified Allergy, Intermediate, HIVES AND RASH ON HANDS, 10/28/19) strawberry (Verified Allergy, Unknown, 10/28/19) GME ATTESTATION GME ATTESTATION My faculty preceptor for this patient encounter was physically present during the encounter and was fully available. All aspects of the patient interview, examination, medical decision making process, and medical care plan development were reviewed and approved by the faculty preceptor. The faculty preceptor is aware and concurs with the plan as stated in the body of this note and will attest to such by his/her cosignature. ATTENDING NOTE INicole, have independently examined this patient and performed my own physical exam, as well as reviewed the documentation and edited where necessary. I have discussed in detail with the resident / student the findings and plan of treatment as documented by the resident / student and edited their note. I agree with their findings and treatment plan and have edited their documentation. I will continue to follow the patient during this hospital stay. patient seen on 01/17/21 BRADEN PICKETT D.O. Jan 17, 2021 23:12 KRISTEL ARAUJO MD Jan 18, 2021 02:37
[2021-01-17] MEDS ORDERED: PILL CUTTER 1 EACH XX PRN (23:25)
[2021-01-18] MEDS ORDERED: GLUCAGON INJ 1MG VIAL SC PRN
[2021-01-18] MEDS ORDERED: DEXTROSE 50% 50 ML SYRINGE IV PRN
[2021-01-18] MEDS ORDERED: GLUCOSE 4GM CHEW TABLET PO PRN
[2021-01-18 01:05] VITALS: BP 108/71
[2021-01-18] MEDS: HumaLOG INSULIN (NovoLOG) PER UNIT SC SCH ×6 (01:50→20:37)
[2021-01-18] MEDS: oxyBUTYnin 5 MG TAB PO SCH ×3 (02:11→20:45)
[2021-01-18] MEDS: GABAPENTIN 100 MG CAP PO SCH ×2 (02:11→08:18)
[2021-01-18] MEDS: SPIRONOLACTONE 50 MG TAB PO SCH ×3 (02:11→20:46)
[2021-01-18] MEDS: LACTULOSE 20 GM/30 ML SYRUP UD PO SCH ×4 (02:11→17:40)
[2021-01-18] MEDS: busPIRone 10 MG TAB PO SCH ×3 (02:11→20:47)
[2021-01-18] MEDS: OYSTER SHELL CALCIUM 500 MG TAB PO SCH ×3 (02:12→20:45)
[2021-01-18] MEDS: DOCUSATE SODIUM 100MG CAPSULE PO SCH ×2 (02:12→08:18)
[2021-01-18 06:00] VITALS: BP 104/66
[2021-01-18 06:21] LABS: HEMATOCRIT 40.9 % (36.0-47.0); MEAN CORPUSCULAR HEMOGLOBIN 37.2 pg (27.0-33.0); MEAN CORPUSCULAR HGB CONC 34.2 g/dl (32.0-36.5); MEAN CORPUSCULAR VOLUME 108.8 fl (80.0-96.0); PLATELET COUNT, AUTOMATED 148 10^3/uL (150-450); RED BLOOD COUNT 3.76 10^6/uL (4.00-5.40); WHITE BLOOD COUNT 7.1 10^3/uL (4.0-10.0)
[2021-01-18 06:49] LABS: ALBUMIN 3.1 GM/DL (3.2-5.2); BILIRUBIN,TOTAL 0.9 MG/DL (0.2-1.0); CALCIUM LEVEL 9.2 MG/DL (8.5-10.1); CREATININE FOR GFR 1.17 MG/DL (0.55-1.30); GLOMERULAR FILTRATION RATE 50.4 (>51); MAGNESIUM LEVEL 1.8 MG/DL (1.8-2.4); POTASSIUM SERUM 4.3 MEQ/L (3.5-5.1); TOTAL PROTEIN 6.5 GM/DL (6.4-8.2)
[2021-01-18] MEDS: FLUTICASONE PROP 0.05% NASAL SPRAY 16 GM (FLONASE) SCH (08:16)
[2021-01-18] MEDS: ENOXAPARIN 40MG/0.4ML SYRINGE (J1650 PER 10MG) SC SCH (08:16)
[2021-01-18] MEDS: LORATADINE 10 MG TAB PO SCH (08:17)
[2021-01-18] MEDS: OMEPRAZOLE 20 MG CAP PO SCH ×2 (08:18→17:39)
[2021-01-18] MEDS: FUROSEMIDE 20 MG TAB PO SCH (08:18)
[2021-01-18] MEDS: DULoxetine 30 MG CAP (CYMBALTA) PO SCH ×2 (08:18→17:39)
[2021-01-18] MEDS: LIDOCAINE 5% (LIDODERM) PATCH TD SCH (08:19)
--- NOTE | 2021-01-18 12:40 | IPNPDOC ---
Text Note Date of Service The patient was seen on 01/18/21. NOTE Subjective: Patient somnolent the morning, not oriented to place and time. She denied any pain. No fever, chills, nausea, vomiting, chest pain Objective: GENERAL APPEARANCE: Obese female, somnolent HEENT: no scleral icterus, no JVD, EOMI CARDIOVASCULAR: S1S2 LUNGS: Diminished lung sounds bilaterally ABDOMEN: soft & not tender w palpitation, mildly distended, obese MUSCULOSKELETAL: no cyanosis, no swelling INTEGUMENT: no generalized pallor NEUROLOGICAL: cranial nerve function from 2-12 intact intact, follows commands, speech not dysarthric Assessment and plan: Patient is 60 year old female with a history of liver cirrhosis and medical noncompliance presents with altered mental status and elevated ammonia level of 143 PLAN: 1. Hepatic encephalopathy Most likely due to noncompliance to the treatment Continue with Lactulose, I increased the dose of lactulose to 40 ml every 6 hours. Gabapentin on hold Continue rifaximin Continue to monitor mental status improvement 2. Liver cirrhosis Decompensated Follow-up with .net architect in the outpatient settings Patient has a remote history of EtOH abuse, she was noncompliant to the treatment Continue home furosemide, spironolactone, and rifaximin 3. Diabetes mellitus Diabetes diet Insulin sliding scale 4. Urinary retention and incontinence continue oxybutynin 5. Anxiety/depression Continue home meds 6. Hx of TIA continue plavix 7. Chronic back pain gabapentin on hold lidocaine patch 8. GERD and hx of gastric bypass - continue PPI Hyperammonemia Secondary to decompensated liver cirrhosis Continue to monitor VS,Fishbone, I+O VS, Fishbone, I+O Laboratory Tests 01/17/21 19:56 01/18/21 06:02 Vital Signs Date Time Temp Pulse Resp B/P (MAP) Pulse Ox O2 Delivery O2 Flow Rate FiO2 01/18/21 06:00 98.3 86 18 104/66 (79) 94 Room Air l I&O- Last 24 Hours up to 6 AM 01/18/21 06:00 Intake Total 300 ml Output Total 0 ml Balance 300 ml ZAKIYA ESCOBEDO DO Jan 18, 2021 12:40
[2021-01-18] MEDS ORDERED: SENNA 8.6 MG TAB (SENOKOT) PO SCH (13:00)
[2021-01-18] MEDS: CLOPIDOGREL 75 MG TAB PO SCH (13:26)
[2021-01-18 14:00] VITALS: BP 143/77
[2021-01-18] MEDS: **NOTE PATIENT COMMENT** MISC XX SCH (20:47)
[2021-01-18 22:00] VITALS: BP 130/79
[2021-01-19] MEDS: LACTULOSE 20 GM/30 ML SYRUP UD PO SCH ×4 (00:18→17:55)
--- NOTE | 2021-01-19 03:10 | ECGEPIP ---
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
[2021-01-19 06:00] VITALS: BP 125/60
[2021-01-19 06:24] LABS: BASO # 0.1 10^3/uL (0.0-0.2); BASO % 0.8 % (0.0-1.0); EOS # 0.4 10^3/uL (0.0-0.5); EOS % 5.6 % (0.0-3.0); HEMATOCRIT 40.4 % (36.0-47.0); HEMOGLOBIN 14.1 g/dl (12.0-15.5); LYMPH # 2.6 10^3/uL (1.5-5.0); LYMPH % 39.2 % (24.0-44.0); MEAN CORPUSCULAR HEMOGLOBIN 38.4 pg (27.0-33.0); MEAN CORPUSCULAR HGB CONC 34.9 g/dl (32.0-36.5); MEAN CORPUSCULAR VOLUME 110.1 fl (80.0-96.0); MONO # 0.7 10^3/uL (0.0-0.8); MONO % 10.6 % (2.0-8.0); NEUTROPHILS # 2.9 10^3/uL (1.5-8.5); NEUTROPHILS % 43.3 % (36.0-66.0); PLATELET COUNT, AUTOMATED 135 10^3/uL (150-450); RED BLOOD COUNT 3.67 10^6/uL (4.00-5.40); WHITE BLOOD COUNT 6.6 10^3/uL (4.0-10.0)
[2021-01-19 06:54] LABS: CALCIUM LEVEL 9.2 MG/DL (8.5-10.1); CREATININE FOR GFR 1.24 MG/DL (0.55-1.30); GLOMERULAR FILTRATION RATE 47.1 (>51); MAGNESIUM LEVEL 1.8 MG/DL (1.8-2.4); TOTAL PROTEIN 6.3 GM/DL (6.4-8.2)
[2021-01-19] MEDS: FLUTICASONE PROP 0.05% NASAL SPRAY 16 GM (FLONASE) SCH (08:25)
[2021-01-19] MEDS: LIDOCAINE 5% (LIDODERM) PATCH TD SCH (08:25)
[2021-01-19] MEDS: ENOXAPARIN 40MG/0.4ML SYRINGE (J1650 PER 10MG) SC SCH (08:26)
[2021-01-19] MEDS: HumaLOG INSULIN (NovoLOG) PER UNIT SC SCH ×4 (08:26→21:00)
[2021-01-19] MEDS: OYSTER SHELL CALCIUM 500 MG TAB PO SCH ×2 (08:27→21:31)
[2021-01-19] MEDS: LORATADINE 10 MG TAB PO SCH (08:27)
[2021-01-19] MEDS: OMEPRAZOLE 20 MG CAP PO SCH ×2 (08:27→17:56)
[2021-01-19] MEDS: SPIRONOLACTONE 50 MG TAB PO SCH ×2 (08:27→21:31)
[2021-01-19] MEDS: oxyBUTYnin 5 MG TAB PO SCH ×2 (08:27→21:31)
[2021-01-19] MEDS: busPIRone 10 MG TAB PO SCH ×2 (08:27→21:31)
[2021-01-19] MEDS: DULoxetine 30 MG CAP (CYMBALTA) PO SCH ×2 (08:27→17:56)
[2021-01-19] MEDS: FUROSEMIDE 20 MG TAB PO SCH (08:28)
[2021-01-19] MEDS: CLOPIDOGREL 75 MG TAB PO SCH (13:34)
[2021-01-19 14:00] VITALS: BP 107/59
--- NOTE | 2021-01-19 17:26 | DS.PDOC ---
Discharge Summary General Date of Admission Jan 17, 2021 at 22:56 Date of Discharge 01/19/21 Discharge Summary PROCEDURES PERFORMED DURING STAY: [None]. ADMITTING DIAGNOSES: Hepatic encephalopathy Medication induced liver cirrhosis, decompensated Diabetes mellitus Urinary retention and incontinence Anxiety/depression Hx of TIA Chronic back pain GERD and hx of gastric bypass DISCHARGE DIAGNOSES: Hepatic encephalopathy Medication induced liver cirrhosis, decompensated Diabetes mellitus Urinary retention and incontinence Anxiety/depression Hx of TIA Chronic back pain GERD and hx of gastric bypass COMPLICATIONS/CHIEF COMPLAINT: Hepatic Encephalopathy,Noncompliance. HISTORY OF PRESENT ILLNESS: 60 year old female with PMHx stated below presents with 1 day of confusion and "not feeling like herself". Patient states her symptoms began this morning when she woke up. She states she was feeling "off". She states she had an appointment with the orthopedic in [place] today regarding her low back pain. She did attend the appointment and had a ride provided. She states that on the way back her symptoms started to get worse. She states she began to have more trouble finding the right words and remembering things. She also notes some paresthesias in her legs but cannot recall if these are new or chronic. During my interview with the patient she did state multiple incorrect things such as that she was discharged from [facility] yesterday when she was actually discharged on January 09. The patient is oriented x4 to person, place, time, and situation. She also had difficultly recalling her medical history. Patient states she is taking her lactulose four times a day as prescribed. However, it is unclear if this is reliable given her confusion and history of medical noncompliance. Patient is a poor historian; some of the history is obtained by chart review. HOSPITAL COURSE: During the hospital stay the following issues addressed 1. Hepatic encephalopathy Resolved today Most likely due to noncompliance to the treatment Continue with Lactulose, I increased the dose of lactulose to 40 ml every 6 hours. Gabapentin was on hold Continue rifaximin 2. Liver cirrhosis Decompensated Follow-up with target worker in the outpatient settings Patient has a remote history of EtOH abuse, she was noncompliant to the treatment Continue home furosemide, spironolactone, and rifaximin 3. Diabetes mellitus Diabetes diet Insulin sliding scale 4. Urinary retention and incontinence continue oxybutynin 5. Anxiety/depression Continue home meds 6. Hx of TIA continue plavix 7. Chronic back pain gabapentin on hold lidocaine patch 8. GERD and hx of gastric bypass - continue PPI Hyperammonemia Secondary to decompensated liver cirrhosis Continue to monitor DISCHARGE MEDICATIONS: Please see below. ALLERGIES: Please see below. PHYSICAL EXAMINATION ON DISCHARGE: VITAL SIGNS: Please see below. GENERAL APPEARANCE: Obese female HEENT: no scleral icterus, no JVD, EOMI CARDIOVASCULAR: S1S2 LUNGS: Diminished lung sounds bilaterally ABDOMEN: soft & not tender w palpitation, mildly distended, obese MUSCULOSKELETAL: no cyanosis, no swelling INTEGUMENT: no generalized pallor NEUROLOGICAL: cranial nerve function from 2-12 intact intact, follows commands, speech not dysarthric LABORATORY DATA: Please see below. IMAGING: See above PROGNOSIS: Fair ACTIVITY: [As tolerated]. DIET: Cardiac ITEMS TO FOLLOWUP ON ON OUTPATIENT: Follow-up with GI team in the outpatient settings DISCHARGE CONDITION: [Stable]. TIME SPENT ON DISCHARGE: 30 minutes. Vital Signs/I&Os Vital Signs Date Time Temp Pulse Resp B/P (MAP) Pulse Ox O2 Delivery O2 Flow Rate FiO2 01/19/21 14:00 98.0 87 18 107/59 (75) 97 Room Air I&O- Last 24 Hours up to 6 AM 01/19/21 05:59 Intake Total 1250 ml Output Total 1000 ml Balance 250 ml Laboratory Data Labs 24H Laboratory Tests 2 01/18/21 20:29: Bedside Glucose (Misc Panel) 152H 01/19/21 06:08: Immature Granulocyte % (Auto) 0.5, Neutrophils (%) (Auto) 43.3, Lymphocytes (%) (Auto) 39.2, Monocytes (%) (Auto) 10.6H, Eosinophils (%) (Auto) 5.6H, Basophils (%) (Auto) 0.8, Neutrophils # (Auto) 2.9, Lymphocytes # (Auto) 2.6, Monocytes # (Auto) 0.7, Eosinophils # (Auto) 0.4, Basophils # (Auto) 0.1, Nucleated Red Blood Cells % (auto) 0.0, Anion Gap 6L, Glomerular Filtration Rate 47.1L, Jamie cium Level 9.2, Magnesium Level 1.8, Total Bilirubin 1.0, Aspartate Amino Transf (AST/SGOT) 28, Alanine Aminotransferase (ALT/SGPT) 30, Alkaline Phosphatase 106, Ammonia 94H, Total Protein 6.3L, Albumin 3.0L, Albumin/Globulin Ratio 0.9L 01/19/21 11:52: Bedside Glucose (Misc Panel) 108H 01/19/21 16:56: Bedside Glucose (Misc Panel) 167H CBC/BMP Laboratory Tests 01/19/21 06:08 FSBS Laboratory Tests Test 01/18/21 20:29 01/19/21 11:52 01/19/21 16:56 Range/Units Bedside Glucose (Misc Panel) 152 108 167 70-105 MG/DL Discharge Medications Scheduled Buspirone HCl (Buspirone HCl) 30 Mg Tablet, 30 MG PO BID, (Reported) Calcium Carbonate (Calcium Carbonate) 500 Mg Tablet, 500 MG PO BID, (Reported) Cholecalciferol (Vitamin D3) (Vitamin D3) 10 Mcg Tablet, 10 MCG PO BID, (Reported) 0600, 1999 Clopidogrel Bisulfate (Clopidogrel) 75 Mg Tablet, 75 MG PO DAILY, (Reported) TAKES AT 1300 Docusate Sodium (Docusate Sodium) 100 Mg Capsule, 100 MG PO BID, (Reported) Dulaglutide (Trulicity) 1.5 Mg/0.5 Ml Pen.injctr, 1.5 MG SC QWEEK, (Reported) SUNDAYS AT 1800 Duloxetine Hcl (Duloxetine HCl) 60 Mg Capsule.dr, 60 MG PO BID, (Reported) Fluticasone Propionate (Flonase Allergy Relief) 9.9 Ml [place].susp, 2 SPRAYS NA DAILY, (Reported) Furosemide (Furosemide) 20 Mg Tab, 20 MG PO DAILY, (Reported) Gabapentin (Gabapentin) 100 Mg Capsule, 100 MG PO TID, (Reported) Lactulose (Lactulose) 10 Gm/15 Ml Solution, 30 ML PO QID, (Reported) Loratadine (Loratadine) 10 Mg Tablet, 10 MG PO DAILY, (Reported) Melatonin (Melatonin) 1 Mg Tablet, 3 MG PO QHS, (Reported) Omeprazole (Omeprazole) 40 Mg Cap, 40 MG PO BID, (Reported) BEFORE BREAKFAST AND DINNER Oxybutynin Chloride (Oxybutynin Chloride) 5 Mg Tablet, 2.5 MG PO BID, (Reported) Rifaximin (Xifaxan) 200 Mg Tablet, 400 MG PO BID, (Reported) Sennosides (Senna) 8.6 Mg Tablet, 2 TAB PO DAILY, (Reported) TAKES AT 1300 Spironolactone (Spironolactone) 50 Mg Tablet, 50 MG PO BID, (Reported) Scheduled PRN Bisacodyl (Bisacodyl) 10 Mg/30 Ml Enema, 10 MG [place] DAILY PRN for CONSTIPATION, (Reported) STARTED 01/09/21, ENDS 01/18/21 Nystatin (Nystatin Powder) 15 Gm Powder, 1 DOSE TOP ASDIRECTED PRN for ANTIFUNGAL, (Reported) Rizatriptan Benzoate (Rizatriptan) 10 Mg Tab, 10 MG PO DAILY PRN for MIGRAINE, (Reported) Allergies Coded Allergies: ciprofloxacin (Verified Allergy, Intermediate, HIVES, CHILLS, AND FELT LIGHT HEADED, 10/28/19) fluconazole (Verified Allergy, Intermediate, HIVES, 10/28/19) latex (Verified Allergy, Intermediate, HIVES AND RASH ON HANDS, 10/28/19) strawberry (Verified Allergy, Unknown, 10/28/19) ZAKIYA ESCOBEDO DO Jan 19, 2021 17:26
[2021-01-19] MEDS: **NOTE PATIENT COMMENT** MISC XX SCH (21:31)
[2021-01-19 22:00] VITALS: BP 110/60
[2021-01-20] MEDS: LACTULOSE 20 GM/30 ML SYRUP UD PO SCH ×2 (00:46→05:31)
[2021-01-20 06:00] VITALS: BP 101/56
[2021-01-20 06:31] LABS: BASO % 0.5 % (0.0-1.0); EOS # 0.4 10^3/uL (0.0-0.5); EOS % 5.6 % (0.0-3.0); HEMATOCRIT 40.4 % (36.0-47.0); HEMOGLOBIN 14.2 g/dl (12.0-15.5); LYMPH # 2.6 10^3/uL (1.5-5.0); MEAN CORPUSCULAR HEMOGLOBIN 38.4 pg (27.0-33.0); MEAN CORPUSCULAR HGB CONC 35.1 g/dl (32.0-36.5); MEAN CORPUSCULAR VOLUME 109.2 fl (80.0-96.0); MONO # 0.7 10^3/uL (0.0-0.8); MONO % 11.3 % (2.0-8.0); NEUTROPHILS # 2.8 10^3/uL (1.5-8.5); NEUTROPHILS % 42.1 % (36.0-66.0); PLATELET COUNT, AUTOMATED 151 10^3/uL (150-450); WHITE BLOOD COUNT 6.6 10^3/uL (4.0-10.0)
[2021-01-20 06:59] LABS: ALBUMIN 3.3 GM/DL (3.2-5.2); BILIRUBIN,TOTAL 1.2 MG/DL (0.2-1.0); CALCIUM LEVEL 9.8 MG/DL (8.5-10.1); CREATININE FOR GFR 1.3 MG/DL (0.55-1.30); GLOMERULAR FILTRATION RATE 44.6 (>51); MAGNESIUM LEVEL 1.9 MG/DL (1.8-2.4); POTASSIUM SERUM 4.3 MEQ/L (3.5-5.1); TOTAL PROTEIN 6.6 GM/DL (6.4-8.2)
[2021-01-20] MEDS: HumaLOG INSULIN (NovoLOG) PER UNIT SC SCH (08:32)
[2021-01-20] MEDS: FUROSEMIDE 20 MG TAB PO SCH (08:33)
[2021-01-20] MEDS: DULoxetine 30 MG CAP (CYMBALTA) PO SCH (08:33)
[2021-01-20] MEDS: LORATADINE 10 MG TAB PO SCH (08:33)
[2021-01-20] MEDS: SPIRONOLACTONE 50 MG TAB PO SCH (08:33)
[2021-01-20] MEDS: OYSTER SHELL CALCIUM 500 MG TAB PO SCH (08:33)
[2021-01-20] MEDS: OMEPRAZOLE 20 MG CAP PO SCH (08:33)
[2021-01-20] MEDS: FLUTICASONE PROP 0.05% NASAL SPRAY 16 GM (FLONASE) SCH (08:33)
[2021-01-20] MEDS: ENOXAPARIN 40MG/0.4ML SYRINGE (J1650 PER 10MG) SC SCH (08:33)
[2021-01-20] MEDS: LIDOCAINE 5% (LIDODERM) PATCH TD SCH (08:33)
[2021-01-20] MEDS: oxyBUTYnin 5 MG TAB PO SCH (08:34)
[2021-01-20] MEDS: busPIRone 10 MG TAB PO SCH (08:34)
== END 2021-01-20 10:40 | DRG 433 ==
LOC: M ED 19:08 → M ED INP 22:56 → ENRESERV 23:45 → M MSPAV 01-18 00:51
PROVIDERS: ADMIT Family Medicine; ATTEND Internal Medicine
DX: K74.60 Unspecified cirrhosis of liver (principal); E72.20 Disorder of urea cycle metabolism, unspecified; K72.90 Hepatic failure, unspecified without coma; E11.9 Type 2 diabetes mellitus without complications; E66.01 Morbid (severe) obesity due to excess calories; F41.9 Anxiety disorder, unspecified; F32.9 Major depressive disorder, single episode, unspecified; K21.9 Gastro-esophageal reflux disease without esophagitis; Z86.73 Personal history of transient ischemic attack (TIA), and cerebral infarction without residual deficits; M54.5 Low back pain; R33.9 Retention of urine, unspecified; Z91.19 Patient's noncompliance with other medical treatment and regimen; Z79.899 Other long term (current) drug therapy; Z91.040 Latex allergy status; Z88.8 Allergy status to other drugs, medicaments and biological substances; Z91.018 Allergy to other foods; G43.909 Migraine, unspecified, not intractable, without status migrainosus; M54.2 Cervicalgia; Z87.891 Personal history of nicotine dependence

== ENCOUNTER 2021-01-22 17:14 | Inpatient (IN) | payer MEDICARE, MEDICAID ==
[~2021-01-22] VITALS: Ht 165.1 cm; Wt 91.4 kg
[~2021-01-22 17:14] MED LIST changes: +CALC500T61 PO; +DOCU100C17 PO; +SENN8.6T28 PO; +VITA1TAB26 PO
[2021-01-22 17:56] LABS: BASO # 0.1 10^3/uL (0.0-0.2); EOS # 0.3 10^3/uL (0.0-0.5); EOS % 4.8 % (0.0-3.0); HEMATOCRIT 39.4 % (36.0-47.0); HEMOGLOBIN 13.9 g/dl (12.0-15.5); LYMPH # 2.2 10^3/uL (1.5-5.0); LYMPH % 35.8 % (24.0-44.0); MEAN CORPUSCULAR HEMOGLOBIN 38.5 pg (27.0-33.0); MEAN CORPUSCULAR HGB CONC 35.3 g/dl (32.0-36.5); MEAN CORPUSCULAR VOLUME 109.1 fl (80.0-96.0); MONO # 0.6 10^3/uL (0.0-0.8); MONO % 9.6 % (2.0-8.0); NEUTROPHILS % 48.3 % (36.0-66.0); PLATELET COUNT, AUTOMATED 131 10^3/uL (150-450); RED BLOOD COUNT 3.61 10^6/uL (4.00-5.40); WHITE BLOOD COUNT 6.2 10^3/uL (4.0-10.0)
[2021-01-22 18:20] LABS: ALBUMIN 3.2 GM/DL (3.2-5.2); ALT/SGPT 33 U/L (12-78); BILIRUBIN,DIRECT 0.4 MG/DL (0.0-0.2); BLOOD UREA NITROGEN 16 MG/DL (7-18); CALCIUM LEVEL 8.4 MG/DL (8.5-10.1); CARBON DIOXIDE LEVEL 20 MEQ/L (21-32); CHLORIDE LEVEL 111 MEQ/L (98-107); CK-MB VALUE MASS 1.3 NG/ML (<3.6); CPK CREATINE PHOSPHOKINASE 47 U/L (26-192); GLOMERULAR FILTRATION RATE 54.1 (>51); GLUCOSE, FASTING 131 MG/DL (70-100); MB/CK RELATIVE INDEX 2.77 (< OR =4); SODIUM LEVEL 142 MEQ/L (136-145); THYROID STIMULATING HORMONE 0.901 uIU/ML (0.358-3.740); TOTAL PROTEIN 6.4 GM/DL (6.4-8.2); TROPONIN I < 0.02 NG/ML (< 0.10)
[2021-01-22] MEDS ORDERED: LACTULOSE 20 GM/30 ML SYRUP UD PO ONE (18:20)
[2021-01-22] MEDS ORDERED: LIDOCAINE 2% 5ML JELLY UROJET TOP ONE (18:50)
--- NOTE | 2021-01-22 19:28 | ECGEPIP ---
[facility] - ED Test Date: 2021-01-22 Pat Name: SANIYA HOWELL Department: Room: - Gender: Female Hop Picker: EYAD : 1960 Requested By: JEFFRY TILLEY Order Number: [id number] Reading MD: Joey Monsalve Measurements Intervals [place] Rate: 80 P: 31 [place]: 114 QRS: 16 QRSD: 84 T: 26 QT: 424 QTc: 489 Interpretive Statements Normal sinus rhythm NSTTW ABNORMALITY(S) BASELINE ARTIFACT AFFECTS INTERPRETATION Electronically Signed on 01-22-2021 19:28:00 EDT by Joey Monsalve
[2021-01-22] MEDS ORDERED: MAALOX 30 ML SUSP *UDC PO PRN (19:45)
[2021-01-22] MEDS ORDERED: NYSTATIN 100,000 UNITS/GM TOPICAL PWD 15 GM TOP PRN (19:45)
[2021-01-22] MEDS ORDERED: ACETAMINOPHEN TAB 650MG DOSE (2X325MG) PO PRN (19:45)
[2021-01-22] MEDS ORDERED: MOM 30ML SUSPENSION UDC PO PRN (19:45)
--- NOTE | 2021-01-22 20:03 | HPEPDOC ---
[facility] Medical History & Physical Date of Admission Jan 22, 2021 Date of Service: Jan 22, 2021 History and Physical CHIEF COMPLAINT: Confusion HISTORY OF PRESENT ILLNESS: Patient is a 60-year-old female lives at [facility] assisted living brought to the hospital for worsening confusion. Patient was just here in the hospital a few days ago and discharged on January 19 with the same problem she had acute metabolic encephalopathy due to decompensated liver cirrhosis which improved with lactulose and rifaximin but there has been a question of compliance with medications. I'm unable to obtain much of a history from the patient as she is confused and my history was mostly from chart review. She doesn't know where she is although when I prompted her with options she said yes to hospital area she doesn't know her date of . She repeatedly replied "space one" to many questions it's unclear what she is trying to say. She doesn't know the year or approximate month. From chart review it appears that last time she was here she was confused but not quite to this agree at that time she was alert and oriented to person place time and situation. PAST MEDICAL HISTORY: (From chart review) 1. Medication induced cirrhosis 2. Diabetes mellitus 3. Hyperlipidemia 4. Chronic back/neck pain 5. Morbid obesity 6. Remote history of alcohol use disorder and opiate dependence 7. GERD 8. Migraine headaches PAST SURGICAL HISTORY: 1. Appendectomy 2. Cholecystectomy 3. Multiple back surgeries 4. Hip replacement 5. Neftali-en-Y gastrojejunostomy SOCIAL HISTORY: From chart review: She is a former smoker. She has a history of heavy alcohol use although she doesn't drink currently. Lives at [facility] assisted living. FAMILY HISTORY: Chart Reviewed and none contributory to this admission ALLERGIES: Please see below. REVIEW OF SYSTEMS: Review of systems is unreliable patient is confused due to her metabolic encephalopathy and repeatedly states 'no' to most questions HOME MEDICATIONS: Please see below. PHYSICAL EXAMINATION: Constitutional: Awake and makes eye contact but confused doesn't appear to be in any distress ENT: No scleral icterus Respiratory: Lungs diminished breath sounds bilaterally large body habitus. No respiratory distress. No use of accessory muscles. Cardiovascular: RRR S1 and S2 are normal, no murmur Gastrointestinal: Abdomen is soft, obese, non distended, non tender, BS present. Musculoskeletal: No lower extremity edema. Neurologic: Difficult to assess with her current state of confusion but there is no obvious focal deficits she is moving all 4 extremities Mental Status: A&O x1 - doesn't know where she is although once assisted Hospital as a possibility she said yes. She did know her date of . She didn't know the approximate month or year. Skin: Warm, dry LABORATORY DATA: See below. IMAGING: See chart MICROBIOLOGY: Please see below. ASSESSMENT Acute metabolic encephalopathy with elevated ammonia level Decompensated liver cirrhosis Urinary retention and incontinence Vyh-[id number]-xcgyxqnrh diabetes mellitus Anxiety and depression Chronic back pain History of TIA GERD and history of gastric bypass PLAN With regards to her acute metabolic encephalopathy it is perhaps worse than at her last admission a few days ago as she is more confused now. Her ammonia level is 142, up from 100 at time of discharge on January 20. There is question of noncompliance with her lactulose and rifaximin. We will admit her to medical bed and start treatment with lactulose 4 times daily the goal is to have 2-3 bowel movements per day and rifaximin twice daily and monitor for improvement over the course of the coming day. Follow-up ammonia level, B12, folate in the morning. With regards to her decompensated liver cirrhosis with history of alcohol abuse it was recommended to her to follow-up with a blade sharpener after discharge at time of previous hospital discharge. Continue her home medications for chronic medical problems. Gabapentin will be held as it can worsen confusion. She'll be placed on insulin sliding scale for her diabetes. Oxybutynin will be continued for urinary retention and incontinence with PVR checks and straight cath as needed. She will receive DVT prophylaxis with Lovenox. A [facility] Hospitalist Vital Signs Vital Signs Date Time Temp Pulse Resp B/P (MAP) Pulse Ox O2 Delivery O2 Flow Rate FiO2 01/22/21 18:44 83 20 123/70 (87) 98 Room Air Laboratory Data Labs 24H Laboratory Tests 2 01/22/21 17:34: Bedside Glucose (Misc Panel) 125H 01/22/21 17:40: Immature Granulocyte % (Auto) 0.5, Neutrophils (%) (Auto) 48.3, Lymphocytes (%) (Auto) 35.8, Monocytes (%) (Auto) 9.6H, Eosinophils (%) (Auto) 4.8H, Basophils (%) (Auto) 1.0, Neutrophils # (Auto) 3.0, Lymphocytes # (Auto) 2.2, Monocytes # (Auto) 0.6, Eosinophils # (Auto) 0.3, Basophils # (Auto) 0.1, Nucleated Red Blood Cells % (auto) 0.0, Anion Gap 11, Glomerular Filtration Rate 54.1, Calcium Level 8.4L, Total Bilirubin 1.0, Direct Bilirubin 0.4H, Aspartate Amino Transf (AST/SGOT) 30, Alanine Aminotransferase (ALT/SGPT) 33, Alkaline Phosphatase 111, Ammonia 142H, Total Creatine Kinase 47, Creatine Kinase MB 1.3, Creatine Kinase MB Relative Index 2.77, Troponin I < 0.02, Total Protein 6.4, Albumin 3.2, Albumin/Globulin Ratio 1.0L, Thyroid Stimulating Hormone (TSH) 0.901 01/22/21 18:57: Urine Color YELLOW, Urine Appearance HAZY, Urine pH 6.0, Urine Specific [place] 1.017, Urine Protein NEGATIVE, Urine Glucose (UA) 1+H, Urine Ketones NEGATIVE, Urine Blood NEGATIVE, Urine Nitrite NEGATIVE, Urine Bilirubin NEGATIVE, Urine Urobilinogen 4.0H, Urine Leukocyte Esterase NEGATIVE, Urine WBC (Auto) 3, Urine RBC (Auto) 0, Urine Hyaline Casts (Auto) 0, Urine Bacteria (Auto) 2+H, Urine Squamous Epithelial Cells 2, Urine Mucus (Auto) SMALL, Urine Sperm (Auto) CBC/BMP Laboratory Tests 01/22/21 17:40 Home Medications Scheduled Buspirone HCl (Buspirone HCl) 30 Mg Tablet, 30 MG PO BID Calcium Carbonate (Calcium Carbonate) 500 Mg Tablet, 500 MG PO BID Cholecalciferol (Vitamin D3) (Vitamin D3) 10 Mcg Tablet, 10 MCG PO BID 0600, 2000 Clopidogrel Bisulfate (Clopidogrel) 75 Mg Tablet, 75 MG PO DAILY TAKES AT 1300 Docusate Sodium (Docusate Sodium) 100 Mg Capsule, 100 MG PO BID Dulaglutide (Trulicity) 1.5 Mg/0.5 Ml Pen.injctr, 1.5 MG SC QWEEK SUNDAYS AT 1800 Duloxetine Hcl (Duloxetine HCl) 60 Mg Capsule.dr, 60 MG PO BID Fluticasone Propionate (Flonase Allergy Relief) 9.9 Ml [place].susp, 2 SPRAYS NA DAILY Furosemide (Furosemide) 20 Mg Tab, 20 MG PO DAILY Gabapentin (Gabapentin) 100 Mg Capsule, 100 MG PO TID Lactulose (Lactulose) 10 Gm/15 Ml Solution, 30 ML PO QID Loratadine (Loratadine) 10 Mg Tablet, 10 MG PO DAILY Melatonin (Melatonin) 1 Mg Tablet, 3 MG PO QHS Omeprazole (Omeprazole) 40 Mg Cap, 40 MG PO BID BEFORE BREAKFAST AND DINNER Oxybutynin Chloride (Oxybutynin Chloride) 5 Mg Tablet, 2.5 MG PO BID Rifaximin (Xifaxan) 200 Mg Tablet, 400 MG PO BID Sennosides (Senna) 8.6 Mg Tablet, 17.2 MG PO DAILY TAKES AT 1300 Spironolactone (Spironolactone) 50 Mg Tablet, 50 MG PO BID Scheduled PRN Nystatin (Nystatin Powder) 15 Gm Powder, 1 DOSE TOP ASDIRECTED PRN for ANTIFUNGAL Rizatriptan Benzoate (Rizatriptan) 10 Mg Tab, 10 MG PO DAILY PRN for MIGRAINE Allergies Coded Allergies: ciprofloxacin (Verified Allergy, Intermediate, HIVES, CHILLS, AND FELT LIGHT HEADED, 10/28/19) fluconazole (Verified Allergy, Intermediate, HIVES, 10/28/19) latex (Verified Allergy, Intermediate, HIVES AND RASH ON HANDS, 10/28/19) strawberry (Verified Allergy, Unknown, 10/28/19) A-FIB/CHADSVASC A-FIB History Current/History of A-Fib/PAF?: No KRISTEL ARAUJO MD Jan 22, 2021 20:03
[2021-01-22] MEDS ORDERED: DEXTROSE 50% 50 ML SYRINGE IV PRN (20:05)
[2021-01-22] MEDS ORDERED: GLUCAGON INJ 1MG VIAL SC PRN (20:05)
[2021-01-22] MEDS ORDERED: GLUCOSE 4GM CHEW TABLET PO PRN (20:05)
[2021-01-22] MEDS: OMEPRAZOLE 20 MG CAP PO SCH (20:23)
[2021-01-22] MEDS: HumaLOG INSULIN (NovoLOG) PER UNIT SC SCH (21:00)
[2021-01-22 21:16] VITALS: BP 138/73
[2021-01-22] MEDS: busPIRone 10 MG TAB PO SCH (21:44)
[2021-01-22] MEDS: DULoxetine 30 MG CAP (CYMBALTA) PO SCH (21:44)
[2021-01-22] MEDS: OYSTER SHELL CALCIUM 500 MG TAB PO SCH (21:44)
[2021-01-22] MEDS: DOCUSATE SODIUM 100MG CAPSULE PO SCH (21:44)
[2021-01-22] MEDS: oxyBUTYnin 5 MG TAB PO SCH (21:44)
[2021-01-22] MEDS: SPIRONOLACTONE 50 MG TAB PO SCH (21:45)
[2021-01-23] MEDS: LACTULOSE 20 GM/30 ML SYRUP UD PO SCH ×4 (00:07→18:15)
[2021-01-23 06:00] VITALS: BP 108/55
[2021-01-23 06:26] LABS: HEMATOCRIT 38.4 % (36.0-47.0); HEMOGLOBIN 13.1 g/dl (12.0-15.5); MEAN CORPUSCULAR HEMOGLOBIN 37.4 pg (27.0-33.0); MEAN CORPUSCULAR HGB CONC 34.1 g/dl (32.0-36.5); MEAN CORPUSCULAR VOLUME 109.7 fl (80.0-96.0); PLATELET COUNT, AUTOMATED 138 10^3/uL (150-450); WHITE BLOOD COUNT 5.7 10^3/uL (4.0-10.0)
[2021-01-23 06:58] LABS: ALBUMIN 3.1 GM/DL (3.2-5.2); BILIRUBIN,TOTAL 1.5 MG/DL (0.2-1.0); CALCIUM LEVEL 9.4 MG/DL (8.5-10.1); CREATININE FOR GFR 1.17 MG/DL (0.55-1.30); GLOMERULAR FILTRATION RATE 50.4 (>51); MAGNESIUM LEVEL 1.7 MG/DL (1.8-2.4); POTASSIUM SERUM 3.8 MEQ/L (3.5-5.1); TOTAL PROTEIN 6.2 GM/DL (6.4-8.2)
[2021-01-23] MEDS: SPIRONOLACTONE 50 MG TAB PO SCH ×2 (09:41→21:31)
[2021-01-23] MEDS: NYSTATIN 100,000 UNITS/GM TOPICAL PWD 15 GM TOP SCH ×2 (09:41→21:31)
[2021-01-23] MEDS: busPIRone 10 MG TAB PO SCH ×2 (09:41→21:30)
[2021-01-23] MEDS: FUROSEMIDE 20 MG TAB PO SCH (09:42)
[2021-01-23] MEDS: OMEPRAZOLE 20 MG CAP PO SCH ×2 (09:42→18:15)
[2021-01-23] MEDS: DULoxetine 30 MG CAP (CYMBALTA) PO SCH ×2 (09:42→21:30)
[2021-01-23] MEDS: OYSTER SHELL CALCIUM 500 MG TAB PO SCH ×2 (09:42→21:31)
[2021-01-23] MEDS: DOCUSATE SODIUM 100MG CAPSULE PO SCH ×2 (09:43→21:31)
[2021-01-23] MEDS: oxyBUTYnin 5 MG TAB PO SCH ×2 (09:43→21:31)
[2021-01-23] MEDS: ENOXAPARIN 40MG/0.4ML SYRINGE (J1650 PER 10MG) SC SCH (09:43)
[2021-01-23] MEDS: HumaLOG INSULIN (NovoLOG) PER UNIT SC SCH ×4 (09:44→21:00)
[2021-01-23 10:13] LABS: INR 1.05; PROTHROMBIN TIME 13.9 SECONDS (12.5-14.3)
[2021-01-23 10:34] LABS: FOLATE 23.9 NG/ML (>5.4)
[2021-01-23] MEDS: SENNA 8.6 MG TAB (SENOKOT) PO SCH (12:22)
[2021-01-23] MEDS: CLOPIDOGREL 75 MG TAB PO SCH (12:22)
[2021-01-23] MEDS ORDERED: MAG SULF 1GM/100ML (MAG RUN) 1 GM in IV 1 EA IV ONE (12:30)
--- NOTE | 2021-01-23 12:50 | IPNPDOC ---
Text Note Date of Service The patient was seen on 01/23/21. NOTE Subjective: No acute events overnight. Pt states that she is still feeling confused and disoriented. She is alert and oriented to person. She is able to tell me the correct year and month but not date. She is not oriented to place, believes she is at [facility]. She denies any headache, N/V/D, chest pain, SOB. Pt states that she has hx of neurogenic bladder and requires straight cath. Objective: VITALS: See below. GENERAL: Patient is laying comfortably in bed. No acute distress. HEENT: NC/AT. Conjunctiva and lids normal. EOMI. HEART: Regular rate and rhythm. No murmurs, rubs, or gallops appreciated. LUNGS: Clear to auscultation. No wheezes, rales, or rhonchi appreciated. ABDOMEN: No tenderness to palpation. No distension. Normoactive bowel sounds in all four quadrants. EXTREMITY: No pitting edema appreciated. NEURO: Finger to nose normal. No asterixis appreciated. Alert and oriented to person. Oriented to year and month but not date. Not oriented to place. Assessment/Plan: Patient is a 60-year-old female lives at [facility] assisted living brought to the hospital for worsening confusion. Patient was just here in the hospital a few days ago and discharged on January 19 with the same problem she had acute metabolic encephalopathy due to decompensated liver cirrhosis which improved with lactulose and rifaximin but there has been a question of compliance with medications. I'm unable to obtain much of a history from the patient as she is confused and my history was mostly from chart review. She doesn't know where she is although when I prompted her with options she said yes to hospital area she doesn't know her date of . She repeatedly replied "space one" to many questions it's unclear what she is trying to say. She doesn't know the year or approximate month. From chart review it appears that last time she was here she was confused but not quite to this agree at that time she was alert and oriented to person place time and situation. #Acute metabolic encephalopathy with elevated ammonia level - PMH of liver cirrhosis due to alcohol abuse. - Possible noncompliance with lactulose and rifaximin as pt was discharged on January 20, 2021 after admission for acute metabolic encephalopathy. Ammonia level 100 at time of d/c. Unsure of what pt baseline mental status is so it is difficult to appreciate if she is back to baseline. - Lactulose 4 times daily. Goal of 2-3 BM/day. - Rifaximin BID. - Will continue to monitor ammonia level, B12, and folate. - Will discontinue Gabapentin as it can worsen confusion. #Decompensated liver cirrhosis - PMH of liver cirrhosis due to past alcohol abuse. - Pt has hx of episodes of acute metabolic encephalopathy due to acute decompensated liver cirrhosis. - MELD Score (10 points) estimated 3-month mortality at 6%. - Child-Romero Score (7 points) Child class B #Hypomagnesemia - Mg low at 1.5 on 01/23/21. - Mag sulfate ordered to replete. #Neurogenic bladder - Continue Oxybutynin. - Will order bladder scan and straight cath as needed. #Non-insulin dependent DM - Sliding scale insulin with hypoglycemic protocol in place. DVT Prophylaxis: Lovenox 40 mg PO Daily. Disposition: Will continue to monitor ammonia, B12, and folate levels as well as mental state. Discharge pending clinical improvement. VS,Fishbone, I+O VS, Fishbone, I+O Laboratory Tests 01/22/21 17:40 01/23/21 05:58 Vital Signs Date Time Temp Pulse Resp B/P (MAP) Pulse Ox O2 Delivery O2 Flow Rate FiO2 01/23/21 06:00 96.9 73 16 108/55 (72) 99 Room Air I&O- Last 24 Hours up to 6 AM 01/23/21 06:00 Intake Total 260 ml Output Total 400 ml Balance -140 ml GME ATTESTATION GME ATTESTATION My faculty preceptor for this patient encounter was physically present during the encounter and was fully available. All aspects of the patient interview, examination, medical decision making process, and medical care plan development were reviewed and approved by the faculty preceptor. The faculty preceptor is aware and concurs with the plan as stated in the body of this note and will att est to such by his/her cosignature. ATTENDING NOTE I, Juan Carlos Banuelos MD, have independently examined this patient and performed my own physical exam, as well as reviewed the documentation and edited where necessary. I have discussed in detail with the resident / student the findings and plan of treatment as documented by the resident / student and edited their note. I agree with their findings and treatment plan and have edited their documentation. Cely GARCIA OMS-3 Jan 23, 2021 12:50 JUAN CARLOS BANUELOS MD Jan 25, 2021 14:37
[2021-01-23 14:00] VITALS: BP 124/69
[2021-01-23 22:00] VITALS: BP 124/69
[2021-01-24] MEDS: LACTULOSE 20 GM/30 ML SYRUP UD PO SCH ×3 (00:41→12:14)
[2021-01-24 06:00] VITALS: BP 126/69
[2021-01-24 06:21] LABS: HEMATOCRIT 39.4 % (36.0-47.0); HEMOGLOBIN 13.6 g/dl (12.0-15.5); MEAN CORPUSCULAR HEMOGLOBIN 37.8 pg (27.0-33.0); MEAN CORPUSCULAR HGB CONC 34.5 g/dl (32.0-36.5); MEAN CORPUSCULAR VOLUME 109.4 fl (80.0-96.0); PLATELET COUNT, AUTOMATED 134 10^3/uL (150-450); WHITE BLOOD COUNT 5.2 10^3/uL (4.0-10.0)
[2021-01-24 06:52] LABS: CALCIUM LEVEL 8.8 MG/DL (8.5-10.1); CREATININE FOR GFR 1.18 MG/DL (0.55-1.30); GLOMERULAR FILTRATION RATE 49.9 (>51); MAGNESIUM LEVEL 2.1 MG/DL (1.8-2.4); POTASSIUM SERUM 3.7 MEQ/L (3.5-5.1); TOTAL PROTEIN 6.6 GM/DL (6.4-8.2)
[2021-01-24] MEDS: busPIRone 10 MG TAB PO SCH (08:22)
[2021-01-24] MEDS: DULoxetine 30 MG CAP (CYMBALTA) PO SCH (08:22)
[2021-01-24] MEDS: OMEPRAZOLE 20 MG CAP PO SCH (08:22)
[2021-01-24] MEDS: DOCUSATE SODIUM 100MG CAPSULE PO SCH (08:22)
[2021-01-24] MEDS: OYSTER SHELL CALCIUM 500 MG TAB PO SCH (08:22)
[2021-01-24] MEDS: SPIRONOLACTONE 50 MG TAB PO SCH (08:22)
[2021-01-24] MEDS: oxyBUTYnin 5 MG TAB PO SCH (08:23)
[2021-01-24] MEDS: FUROSEMIDE 20 MG TAB PO SCH (08:23)
[2021-01-24] MEDS: NYSTATIN 100,000 UNITS/GM TOPICAL PWD 15 GM TOP SCH (08:24)
[2021-01-24] MEDS: ENOXAPARIN 40MG/0.4ML SYRINGE (J1650 PER 10MG) SC SCH (08:24)
[2021-01-24] MEDS: HumaLOG INSULIN (NovoLOG) PER UNIT SC SCH ×2 (08:25→12:15)
--- NOTE | 2021-01-24 11:36 | DS.PDOC ---
Discharge Summary General Date of Admission Jan 22, 2021 at 19:53 Date of Discharge 01/24/21 Primary Care Physician: Andrew Beck M.D. Attending Physician: JUAN CARLOS BANUELOS MD Discharge Summary PROCEDURES PERFORMED DURING STAY: [None]. ADMITTING DIAGNOSES: 1. Metabolic Encephalopathy secondary to hyperammonemia secondary to Liver Cirrhosis secondary to NAFLD 2. 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 Chronic Urinary Retention 2/2 Neurogenic Bladder 4. Diabetes Mellitus Type 2 5. Chronic Back Pain 6. History of TIA 7. GERD and History of Gastric Bypass DISCHARGE DIAGNOSES: 1. Metabolic Encephalopathy secondary to hyperammonemia secondary to Liver Cirrhosis secondary to NAFLD 2. 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 Chronic Urinary Retention 2/2 Neurogenic Bladder 4. Diabetes Mellitus Type 2 5. Chronic Back Pain 6. History of TIA 7. GERD and History of Gastric Bypass COMPLICATIONS/CHIEF COMPLAINT: Ams,Acute Hepatic Encephalopathy. HISTORY OF PRESENT ILLNESS: Patient is a 60 year old female who resides at [facility] with a past medical history significant for diastolic congestive heart failure, diabetes mellitus type 2, chronic back pain, and liver cirrhosis secondary to NAFLD with multiple readmissions for metabolic encephalopathy secondary to hyperammonemia who presented to the [facility] ER with worsening confusion and per [facility] staff "increased shaking". At the time of admission, the patient was not able to provide much information due to her altered state. She was noted to respond "space one" to questions ask of her. In the ER the patient was vitally stable. She was found to have an elevated ammonia level of 142 with her baseline being 50-70. She was admitted to hospitalist service for further evaluation and management HOSPITAL COURSE: During the patients hospitalization the patient was continued on Lactulose and Rifaximin with titration to 3-4 bowel movements a day. Due to her altered mental status her Gabapentin was held. A taylor catheter was placed due to her history of neurogenic bladder and inability to straight cath herself while acutely altered. Over the course of her hospitalization the patients mentation did slowly improve. On review of the patients chart it appeared that she has been hospitalized multiple times for hepatic encephalopathy with three admissions within the past month. During each admission the patient is treated with her home lactulose for which she improves and is then discharged to [facility]. Given this information there is therefore question as to whether the patient herself is compliant with her medication. long-term was potentially recommended in light of her potential medication non-compliance. Additionally, on PT evaluation the patient did require assistance with ambulation. The patient was subsequently discharged to [facility] fpc. At discharge she was continued on her home medications. Her gabapentin has been discontinued. Although gabapentin is not primarily metabolized in the liver this may be contributing to her altered mental status given her poly pharmacy. Have discontinued this medication on discharge however she will follow-up with her PCP for further recommendations such as potential dose reduction of her gabapentin DISCHARGE MEDICATIONS: Please see below. ALLERGIES: Please see below. PHYSICAL EXAMINATION ON DISCHARGE: VITAL SIGNS: Please see below. GENERAL: Awake, alert and oriented to person, place, and time. Appears in no acu te distress. Lying comfortably in bed HEENT: Atraumatic normocephalic. Eyes are nonicteric. Trachea is midline. Mucous membranes are pink and moist NECK: No palpable cervical, axillary, or supraclavicular lymphadenopathy CARDIOVASCULAR EXAMINATION: Normal S1, S2. Regular rate and rhythm. No clicks, rubs, or murmurs RESPIRATORY EXAMINATION: Clear breath sounds bilaterally. Somewhat diminished in the bases bilaterally. No wheezes, rhonchi or rales ABDOMINAL EXAMINATION: Soft, nondistended. nontender. Normoactive bowel sounds throughout. EXTREMITIES: No edema. Full and equal pulses in bilateral upper and lower extremities SKIN: No rashes or lesions NEUROLOGICAL EXAMINATION: No focal neurological deficits PSYCHIATRIC EXAMINATION: Mood and affect appear appropriate LABORATORY DATA: Please see below. PROGNOSIS: Fair ACTIVITY: [As tolerated]. DIET: 2 Gram sodium restricted diet; Consistent carbohydrate DISCHARGE PLAN: Patient is to be discharged to [facility]pc facility. She is to continue all of her medications as previously prescribed with exception to her Gabapentin. She is to STOP gabapentin. She is to follow-up with her PCP for further recommendations on restarting her gabapentin or decreasing dosing. DISPOSITION: . DISCHARGE INSTRUCTIONS: 1. Following with PCP in 7-10 days 2. STOP Gabapentin DISCHARGE CONDITION: [Stable]. TIME SPENT ON DISCHARGE: Greater than 35 minutes. Vital Signs/I&Os Vital Signs Date Time Temp Pulse Resp B/P (MAP) Pulse Ox O2 Delivery O2 Flow Rate FiO2 01/24/21 06:00 97.4 91 16 126/69 (88) 98 Room Air I&O- Last 24 Hours up to 6 AM 01/24/21 06:00 Intake Total 1040 ml Output Total 1275 ml Balance -235 ml Laboratory Data Labs 24H Laboratory Tests 2 01/23/21 11:39: Bedside Glucose (Misc Panel) 226H 01/23/21 16:40: Bedside Glucose (Misc Panel) 182H 01/23/21 20:50: Bedside Glucose (Misc Panel) 176H 01/24/21 06:04: Nucleated Red Blood Cells % (auto) 0.0, Anion Gap 7L, Glomerular Filtration Rate 49.9L, Calcium Level 8.8, Magnesium Level 2.1, Total Bilirubin 1.0, Aspartate Amino Transf (AST/SGOT) 29, Alanine Aminotransferase (ALT/SGPT) 30, Alkaline Phosphatase 94, Ammonia 79H, Total Protein 6.6, Albumin 3.0L, Albumin/Globulin Ratio 0.8L CBC/BMP Laboratory Tests 01/24/21 06:04 FSBS Laboratory Tests Test 01/23/21 11:39 01/23/21 16:40 01/23/21 20:50 Range/Units Bedside Glucose (Misc Panel) 226 182 176 70-105 MG/DL Discharge Medications Scheduled Buspirone HCl (Buspirone HCl) 30 Mg Tablet, 30 MG PO BID, (Reported) Calcium Carbonate (Calcium Carbonate) 500 Mg Tablet, 500 MG PO BID, (Reported) Cholecalciferol (Vitamin D3) (Vitamin D3) 10 Mcg Tablet, 10 MCG PO BID, (Reported) 0600, 2000 Clopidogrel Bisulfate (Clopidogrel) 75 Mg Tablet, 75 MG PO DAILY, (Reported) TAKES AT 1300 Docusate Sodium (Docusate Sodium) 100 Mg Capsule, 100 MG PO BID, (Reported) Dulaglutide (Trulicity) 1.5 Mg/0.5 Ml Pen.injctr, 1.5 MG SC QWEEK, (Reported) SUNDAYS AT 1800 Duloxetine Hcl (Duloxetine HCl) 60 Mg Capsule.dr, 60 MG PO BID, (Reported) Fluticasone Propionate (Flonase Allergy Relief) 9.9 Ml [place].susp, 2 SPRAYS NA DAILY, (Reported) Furosemide (Furosemide) 20 Mg Tab, 20 MG PO DAILY, (Reported) Lactulose (Lactulose) 10 Gm/15 Ml Solution, 30 ML PO QID, (Reported) Loratadine (Loratadine) 10 Mg Tablet, 10 MG PO DAILY, (Reported) Melatonin (Melatonin) 1 Mg Tablet, 3 MG PO QHS, (Reported) Omeprazole (Omeprazole) 40 Mg Cap, 40 MG PO BID, (Reported) BEFORE BREAKFAST AND DINNER Oxybutynin Chloride (Oxybutynin Chloride) 5 Mg Tablet, 2.5 MG PO BID, (Reported) Rifaximin (Xifaxan) 200 Mg Tablet, 400 MG PO BID, (Reported) Sennosides (Senna) 8.6 Mg Tablet, 17.2 MG PO DAILY, (Reported) TAKES AT 1300 Spironolactone (Spironolactone) 50 Mg Tablet, 50 MG PO BID, (Reported) Scheduled PRN Nystatin (Nystatin Powder) 15 Gm Powder, 1 DOSE TOP ASDIRECTED PRN for ANTIFUNGAL, (Reported) Rizatriptan Benzoate (Rizatriptan) 10 Mg Tab, 10 MG PO DAILY PRN for MIGRAINE, (Reported) Allergies Coded Allergies: ciprofloxacin (Verified Allergy, Intermediate, HIVES, CHILLS, AND FELT LIGHT HEADED, 10/28/19) fluconazole (Verified Allergy, Intermediate, HIVES, 10/28/19) latex (Verified Allergy, Intermediate, HIVES AND RASH ON HANDS, 10/28/19) strawberry (Verified Allergy, Unknown, 10/28/19) GME ATTESTATION GME ATTESTATION My faculty preceptor for this patient encounter was physically present during the encounter and was fully available. All aspects of the patient interview, examination, medical decision making process, and medical care plan development were reviewed and approved by the faculty preceptor. The faculty preceptor is aware and concurs with the plan as stated in the body of this note and will attest to such by his/her cosignature. ATTENDING NOTE I, Juan Carlos Banuelos MD, have independently examined this patient and performed my own physical exam, as well as reviewed the documentation and edited where necessary. I have discussed in detail with the resident / student the findings and plan of treatment as documented by the resident / student and edited their note. I agree with their findings and treatment plan and have edited their documentation. ANJALI CERNA DO Jan 24, 2021 11:36 JUAN CARLOS BANUELOS MD Jan 25, 2021 14:43
[2021-01-24] MEDS: SENNA 8.6 MG TAB (SENOKOT) PO SCH (12:15)
[2021-01-24] MEDS: CLOPIDOGREL 75 MG TAB PO SCH (12:15)
== END 2021-01-24 14:10 | DRG 432 ==
LOC: M ED 17:14 → M ED INP 19:53 → M MSPAV 21:17
PROVIDERS: ADMIT Family Medicine; ATTEND Internal Medicine
DX: K74.60 Unspecified cirrhosis of liver (principal); G93.41 Metabolic encephalopathy; I50.32 Chronic diastolic (congestive) heart failure; E72.20 Disorder of urea cycle metabolism, unspecified; E11.9 Type 2 diabetes mellitus without complications; N31.9 Neuromuscular dysfunction of bladder, unspecified; K76.0 Fatty (change of) liver, not elsewhere classified; K21.9 Gastro-esophageal reflux disease without esophagitis; Z86.73 Personal history of transient ischemic attack (TIA), and cerebral infarction without residual deficits; M54.5 Low back pain; Z79.899 Other long term (current) drug therapy; Z91.040 Latex allergy status; Z91.018 Allergy to other foods; Z88.8 Allergy status to other drugs, medicaments and biological substances; E66.01 Morbid (severe) obesity due to excess calories; M54.2 Cervicalgia; E78.5 Hyperlipidemia, unspecified; G43.909 Migraine, unspecified, not intractable, without status migrainosus; Z87.891 Personal history of nicotine dependence; E83.42 Hypomagnesemia

== ENCOUNTER → 2021-02-10 | Outpatient (REF) ==
[2021-02-10 11:50] LABS: HEMATOCRIT 37.4 % (36.0-47.0); HEMOGLOBIN 12.9 g/dl (12.0-15.5); MEAN CORPUSCULAR HEMOGLOBIN 38.1 pg (27.0-33.0); MEAN CORPUSCULAR HGB CONC 34.5 g/dl (32.0-36.5); MEAN CORPUSCULAR VOLUME 110.3 fl (80.0-96.0); PLATELET COUNT, AUTOMATED 122 10^3/uL (150-450); RED BLOOD COUNT 3.39 10^6/uL (4.00-5.40); WHITE BLOOD COUNT 5.1 10^3/uL (4.0-10.0)
[2021-02-10 12:41] LABS: ALBUMIN 2.7 GM/DL (3.2-5.2); ALT/SGPT 35 U/L (12-78); BILIRUBIN,DIRECT 0.3 MG/DL (0.0-0.2); BILIRUBIN,TOTAL 0.8 MG/DL (0.2-1.0); BLOOD UREA NITROGEN 12 MG/DL (7-18); CALCIUM LEVEL 8.5 MG/DL (8.5-10.1); CARBON DIOXIDE LEVEL 29 MEQ/L (21-32); CHLORIDE LEVEL 110 MEQ/L (98-107); GLOMERULAR FILTRATION RATE > 60.0 (>51); GLUCOSE, FASTING 176 MG/DL (70-100); SODIUM LEVEL 143 MEQ/L (136-145); TOTAL PROTEIN 5.5 GM/DL (6.4-8.2)
[2021-02-10 14:16] LABS: APPEARANCE, URINE CLOUDY (CLEAR); BACTERIA, URINE AUTO 3+ (NEGATIVE); BILIRUBIN, URINE AUTO NEGATIVE (NEGATIVE); BLOOD, URINE BLOOD 3+ (NEGATIVE); COLOR, URINE AMBER (YELLOW); GLUCOSE, URINE (UA) AUTO NEGATIVE (NEGATIVE); KETONE, URINE AUTO NEGATIVE (NEGATIVE); LEUKOCYTE ESTERASE, URINE AUTO 3+ (NEGATIVE); MUCUS, URINE SMALL (NEGATIVE); NITRITE, URINE AUTO NEGATIVE (NEGATIVE); PROTEIN, URINE AUTO NEGATIVE (NEGATIVE); RBC, URINE AUTO 45 /HPF (0-3); SPECIFIC GRAVITY URINE AUTO 1.013 (1.002-1.035); SQUAMOUS EPITHELIAL CELL UR AU 6 /HPF (0-6); UROBILINOGEN, URINE AUTO 0.2 mg/dL (0.0-2.0); WBC, URINE AUTO 77 /HPF (0-3)
== END ==
PROVIDERS: ATTEND Internal Medicine
DX: K72.90 Hepatic failure, unspecified without coma (principal)

== ENCOUNTER → 2021-02-17 | Outpatient (REF) | payer MEDICARE, MEDICAID, OTHER ==
[2021-02-17 20:22] LABS: RSV AMPLIFICATION NEGATIVE (NEGATIVE)
== END ==
PROVIDERS: ATTEND Internal Medicine
DX: Z11.52 Encounter for screening for COVID-19 (principal)

== ENCOUNTER → 2021-02-21 | Outpatient (REF) | payer MEDICARE, MEDICAID, OTHER | PROVIDERS: ATTEND Internal Medicine | DX: Z20.822 Contact with and (suspected) exposure to COVID-19 (principal) ==

== ENCOUNTER → 2021-02-23 | Outpatient (REF) | payer MEDICARE, MEDICAID, OTHER ==
[2021-02-23 08:37] LABS: HEMATOCRIT 36.1 % (36.0-47.0); HEMOGLOBIN 12.6 g/dl (12.0-15.5); MEAN CORPUSCULAR HEMOGLOBIN 38.7 pg (27.0-33.0); MEAN CORPUSCULAR HGB CONC 34.9 g/dl (32.0-36.5); MEAN CORPUSCULAR VOLUME 110.7 fl (80.0-96.0); PLATELET COUNT, AUTOMATED 123 10^3/uL (150-450); RED BLOOD COUNT 3.26 10^6/uL (4.00-5.40); WHITE BLOOD COUNT 4.9 10^3/uL (4.0-10.0)
[2021-02-23 09:37] LABS: BLOOD UREA NITROGEN 12 MG/DL (7-18); CALCIUM LEVEL 8.5 MG/DL (8.5-10.1); CARBON DIOXIDE LEVEL 27 MEQ/L (21-32); CHLORIDE LEVEL 107 MEQ/L (98-107); GLOMERULAR FILTRATION RATE > 60.0 (>51); GLUCOSE, FASTING 106 MG/DL (70-100); SODIUM LEVEL 142 MEQ/L (136-145)
[2021-02-23 17:43] LABS: HEMOGLOBIN A1c 6.4 %
== END ==
PROVIDERS: ATTEND Internal Medicine
DX: E11.9 Type 2 diabetes mellitus without complications (principal)

== ENCOUNTER → 2021-02-28 | Outpatient (REF) | payer MEDICARE, MEDICAID, OTHER | PROVIDERS: ATTEND Internal Medicine | DX: Z20.828 Contact with and (suspected) exposure to other viral communicable diseases (principal) ==

== ENCOUNTER → 2021-03-08 | Outpatient (REF) | payer MEDICARE, MEDICAID, OTHER | PROVIDERS: ATTEND Family Medicine | DX: E72.20 Disorder of urea cycle metabolism, unspecified (principal) ==

== ENCOUNTER → 2021-03-22 | Outpatient (REF) | payer MEDICARE, MEDICAID, OTHER ==
[2021-03-22 09:55] LABS: BASO % 0.5 % (0.0-1.0); EOS # 0.4 10^3/uL (0.0-0.5); EOS % 5.9 % (0.0-3.0); HEMATOCRIT 41.9 % (36.0-47.0); HEMOGLOBIN 14.1 g/dl (12.0-15.5); LYMPH # 1.9 10^3/uL (1.5-5.0); LYMPH % 32.8 % (24.0-44.0); MEAN CORPUSCULAR HGB CONC 33.7 g/dl (32.0-36.5); MEAN CORPUSCULAR VOLUME 112.9 fl (80.0-96.0); MONO # 0.7 10^3/uL (0.0-0.8); MONO % 11.5 % (2.0-8.0); NEUTROPHILS # 2.9 10^3/uL (1.5-8.5); PLATELET COUNT, AUTOMATED 152 10^3/uL (150-450); RED BLOOD COUNT 3.71 10^6/uL (4.00-5.40); WHITE BLOOD COUNT 5.9 10^3/uL (4.0-10.0)
[2021-03-22 10:26] LABS: ALBUMIN 2.9 GM/DL (3.2-5.2); BILIRUBIN,TOTAL 1.3 MG/DL (0.2-1.0); CALCIUM LEVEL 9.3 MG/DL (8.5-10.1); CREATININE FOR GFR 1.05 MG/DL (0.55-1.30); GLOMERULAR FILTRATION RATE 57.1 (>51); POTASSIUM SERUM 4.2 MEQ/L (3.5-5.1); TOTAL PROTEIN 6.1 GM/DL (6.4-8.2)
== END ==
PROVIDERS: ATTEND Family Medicine
DX: E72.20 Disorder of urea cycle metabolism, unspecified (principal); K74.60 Unspecified cirrhosis of liver

== ENCOUNTER → 2021-04-06 | Outpatient (REF) | payer MEDICARE, MEDICAID ==
[~2021-04-06] MED LIST changes: +OMEP40CA4 PO; -OMEP40CA97 PO
[2021-04-06 15:50] LABS: BASO % 0.5 % (0.0-1.0); EOS # 0.4 10^3/uL (0.0-0.5); EOS % 5.6 % (0.0-3.0); HEMATOCRIT 43.3 % (36.0-47.0); HEMOGLOBIN 14.6 g/dl (12.0-15.5); LYMPH # 1.7 10^3/uL (1.5-5.0); LYMPH % 25.8 % (24.0-44.0); MEAN CORPUSCULAR HEMOGLOBIN 37.3 pg (27.0-33.0); MEAN CORPUSCULAR HGB CONC 33.7 g/dl (32.0-36.5); MEAN CORPUSCULAR VOLUME 110.7 fl (80.0-96.0); MONO # 0.9 10^3/uL (0.0-0.8); MONO % 12.9 % (2.0-8.0); NEUTROPHILS # 3.6 10^3/uL (1.5-8.5); NEUTROPHILS % 54.6 % (36.0-66.0); PLATELET COUNT, AUTOMATED 185 10^3/uL (150-450); RED BLOOD COUNT 3.91 10^6/uL (4.00-5.40); WHITE BLOOD COUNT 6.6 10^3/uL (4.0-10.0)
[2021-04-06 15:52] LABS: ALBUMIN 3.2 GM/DL (3.2-5.2); BILIRUBIN,TOTAL 0.9 MG/DL (0.2-1.0); CALCIUM LEVEL 9.1 MG/DL (8.5-10.1); CREATININE FOR GFR 1.23 MG/DL (0.55-1.30); GLOMERULAR FILTRATION RATE 47.6 (>51); TOTAL PROTEIN 6.6 GM/DL (6.4-8.2)
== END ==
LOC: M SFHCPLAZ 12:46
PROVIDERS: ATTEND Physician Assistant
DX: M47.22 Other spondylosis with radiculopathy, cervical region (principal); K72.90 Hepatic failure, unspecified without coma; I50.32 Chronic diastolic (congestive) heart failure; M47.26 Other spondylosis with radiculopathy, lumbar region
CPT/HCPCS: 36415; 80053; 82140; 83880; 85025; G0463

== ENCOUNTER → 2021-06-21 | Outpatient (REF) | payer MEDICARE, MEDICAID ==
[~2021-06-21] MED LIST changes: +DOK1CAP4 PO; -DOK1CAP7 PO
[2021-06-21 12:29] LABS: HEMATOCRIT 35.8 % (36.0-47.0); HEMOGLOBIN 12.2 g/dl (12.0-15.5); MEAN CORPUSCULAR HEMOGLOBIN 38.5 pg (27.0-33.0); MEAN CORPUSCULAR HGB CONC 34.1 g/dl (32.0-36.5); MEAN CORPUSCULAR VOLUME 112.9 fl (80.0-96.0); PLATELET COUNT, AUTOMATED 124 10^3/uL (150-450); RED BLOOD COUNT 3.17 10^6/uL (4.00-5.40); WHITE BLOOD COUNT 4.9 10^3/uL (4.0-10.0)
[2021-06-21 12:57] LABS: ATYPICAL LYMPH 2 % (0-5); EOSINOPHILS 6 % (0-3); LYMPHOCYTES 26 % (16-44); MONOCYTES 5 % (0-5); NEUTROPHILS 59 % (28-66)
[2021-06-21 12:58] LABS: PLATELET ESTIMATE NORMAL (NORMAL)
[2021-06-21 13:14] LABS: ALBUMIN 2.7 GM/DL (3.2-5.2); BILIRUBIN,TOTAL 0.7 MG/DL (0.2-1.0); CALCIUM LEVEL 8.8 MG/DL (8.5-10.1); CREATININE FOR GFR 1.17 MG/DL (0.55-1.30); GLOMERULAR FILTRATION RATE 50.4 (>51); TOTAL PROTEIN 5.4 GM/DL (6.4-8.2)
== END ==
PROVIDERS: ATTEND Family Medicine
DX: K75.81 Nonalcoholic steatohepatitis (NASH) (principal); K72.90 Hepatic failure, unspecified without coma

== ENCOUNTER 2021-07-26 18:10 | Inpatient (IN) | payer MEDICARE, MEDICAID ==
[~2021-07-26] VITALS: Ht 160 cm; Wt 93.8 kg
[~2021-07-26 18:10] MED LIST changes: -ACET1TAB55 PO; -DICL1GEL3 TOP; -LIDO5DIS41 TD; -NADO40TA PO; -NYST10CR TOP; -OMEP-221 PO; -RA M10TA PO
[2021-07-26] MEDS ORDERED: ACET1TAB55 PO (19:42)
[2021-07-26] MEDS ORDERED: NYST10CR TOP (19:42)
[2021-07-26] MEDS ORDERED: OMEP-221 PO (19:42)
[2021-07-26] MEDS ORDERED: LIDO5DIS41 TD (19:42)
[2021-07-26] MEDS ORDERED: DICL1GEL3 TOP (19:42)
[2021-07-26] MEDS ORDERED: RA M10TA PO (19:42)
[2021-07-26] MEDS ORDERED: NADO40TA PO (19:42)
[2021-07-26] MEDS ORDERED: HOME MED LIST COMPLETE! XX SCH (19:45)
[2021-07-26 21:40] LABS: BASO # 0.1 10^3/uL (0.0-0.2); BASO % 0.7 % (0.0-1.0); EOS # 0.4 10^3/uL (0.0-0.5); HEMATOCRIT 42.4 % (36.0-47.0); HEMOGLOBIN 14.6 g/dl (12.0-15.5); LYMPH # 3.3 10^3/uL (1.5-5.0); LYMPH % 35.8 % (24.0-44.0); MEAN CORPUSCULAR HEMOGLOBIN 37.3 pg (27.0-33.0); MEAN CORPUSCULAR HGB CONC 34.4 g/dl (32.0-36.5); MEAN CORPUSCULAR VOLUME 108.4 fl (80.0-96.0); MONO # 1.4 10^3/uL (0.0-0.8); MONO % 14.9 % (2.0-8.0); NEUTROPHILS % 43.9 % (36.0-66.0); PLATELET COUNT, AUTOMATED 210 10^3/uL (150-450); RED BLOOD COUNT 3.91 10^6/uL (4.00-5.40); WHITE BLOOD COUNT 9.1 10^3/uL (4.0-10.0)
[2021-07-26 22:11] LABS: ALBUMIN 2.9 GM/DL (3.2-5.2); ALT/SGPT 23 U/L (12-78); BILIRUBIN,DIRECT 0.3 MG/DL (0.0-0.2); BLOOD UREA NITROGEN 19 MG/DL (7-18); CALCIUM LEVEL 9.7 MG/DL (8.5-10.1); CARBON DIOXIDE LEVEL 23 MEQ/L (21-32); CHLORIDE LEVEL 106 MEQ/L (98-107); CK-MB VALUE MASS 1.5 NG/ML (<3.6); CPK CREATINE PHOSPHOKINASE 82 U/L (26-192); CREATININE FOR GFR 1.34 MG/DL (0.55-1.30); ETHYL ALCOHOL (ETHANOL) 0.004 % (0.000-0.010); GLOMERULAR FILTRATION RATE 43.1 (>51); GLUCOSE, FASTING 132 MG/DL (70-100); MB/CK RELATIVE INDEX 1.83 (< OR =4); SODIUM LEVEL 141 MEQ/L (136-145); TOTAL PROTEIN 6.6 GM/DL (6.4-8.2); TROPONIN I < 0.02 NG/ML (< 0.10)
[2021-07-26] MEDS ORDERED: MOM 30ML SUSPENSION UDC PO PRN (22:50)
[2021-07-26] MEDS ORDERED: MAALOX 30 ML SUSP *UDC PO PRN (22:50)
--- NOTE | 2021-07-26 22:53 | HPEPDOC ---
[facility] Medical History & Physical Date of Admission Jul 26, 2021 Date of Service: Jul 26, 2021 Primary Care Physician: Andrew Beck M.D. Attending Physician: TANGELA MARTINEZ MD History and Physical TIME OF SERVICE: 1155pm CHIEF COMPLAINT: sent by [facility] staff HISTORY OF PRESENT ILLNESS: , a 60 yr old F, has been admitted to the hospital 3 times this year for hepatic encephalopathy. Today was sent from [facility] for evaluation of elevated ammonia. She denied feeling unwell or confused and was initially asking if she could be sent back to [place] but later on she admitted that her mother who had called her reported that was confused. She denied missing any doses of her medications and reports having several BMs per day. She denied having fever or chills or any change in her chronic right sided abdominal pain. She is not sure if she has had any falls recently. 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 She also has a history of alcohol use disorder, but quit drinking in 1997 FAMILY HISTORY: Father had CAD & Parkinsons / Mother had CKD / 1 brother had MS ALLERGIES: Please see below. HOME MEDICATIONS: Please see below. PHYSICAL EXAMINATION: VITAL SIGNS: GENERAL APPEARANCE: well-nourished and developed/ NAD HEENT: EOMI / MMM&P / no scleral icterus CARDIOVASCULAR: RRR/NMRG LUNGS: CTAB on RA ABDOMEN: contour convex/ soft / she grimaces with palpation of the right side of the abdomen MUSCULOSKELETAL: NCAT / ANNA x 4 extremities INTEGUMENT: not flushed, pale or jaundice NEUROLOGICAL: CN 2-12 grossly intact / speech not dysarthric / no asterisks PSYCHIATRIC: A&O x 2 (person and place) she is not sure of the date and stated that the president is [place] / able to understand and follow all commands LABORATORY DATA: IMAGING: n/a MICROBIOLOGY: neg respiratory panel ASSESSMENT: is a 60 yr old w 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 PLAN: 1 Covert Hepatic Encephalopathy / Decompensated Liver Cirrhosis -Despite the absence of asterisks (which is absent in subclinical stages of HE) she is still confused. -[facility] therefore I dont think compliance w her medication regimen is an issue; other plausible triggers of this acute episode include occult infection, GI bleed, SBP, constipation, dehydration, or portal or hepatic vein thrombosis. -Her MELD Score is only 9 today Plan: admit to medical floor / frequent Neurochecks (diminishing consciousness should prompt consideration of intubation because air-way protective reflexes can be lost in the advanced stages of hepatic encephalopathy) / elevate head of the bed / c/w lactulose & rifaximin / overt hepatic encephalopathy, may be the sole presenting feature of spontaneous bacterial peritonitis (SBP) therefore will order US of the liver w Doppler studies to determine if patient is a candidate for paracentesis and to r/o portal or hepatic vein thrombosis as factor triggering acute episode of HE / in case dehydration is the trigger for this episode of HE we will hold lasix & spironolactone for now we will not trend ammonia because the level of elevation doesnt consistently correlate with symptoms of HE / we will trend LFTs, INR & her MELD score / c/w Nadolol (likely for esophageal varices) / to prevent the catabolic effects of chronic liver disease we will order high protein diet and aim for a daily protein intake of 1.5 g/kg body weight 2 Abdominal pain 2/2 Hepatitis -There is no need to determine her Maddrey score bc her liver failure is due to CHRITSIANSEN rather than alcohol abuse Plan: f/u liver US to r/o portal vein thrombus / bc she is c/o abdominal pain and has a hx of UTIs will also order a UA & blood cx / 3 CKD 3 Plan: f/u BMP 4 IDDM2 -I suspect she is not on meds bc her recent A1C was 6.4% Plan: f/u serum glucose w daily BMP 5 Neurogenic bladder Plan: oxybutynin /bladder scan w intermittent straight cath 6 Chronic HFpEF (grade1) Plan: f/u Is and Os and weight while diuretics are on hold 7 TIA Plan: clopidogrel 7 GERD Plan: omeprazole 8 Class 2 obesity (s/p Gastric bypass) -Complicates care 9 Depression Plan: buspirone, duloxetine DVT px w Enoxaparin Dispo: SNF after at least 2 midnights stay / PFS consult has been place Home Medications Scheduled Buspirone HCl (Buspirone HCl) 30 Mg Tablet, 30 MG PO BID Calcium Carbonate (Calcium Carbonate) 500 Mg Tablet, 500 MG PO BID Cholecalciferol (Vitamin D3) (Vitamin D3) 10 Mcg Tablet, 10 MCG PO BID Clopidogrel Bisulfate (Clopidogrel) 75 Mg Tablet, 75 MG PO DAILY Dulaglutide (Trulicity) 1.5 Mg/0.5 Ml Pen.injctr, 1.5 MG SC QWEEK SUNDAYS AT 1700 Duloxetine Hcl (Duloxetine HCl) 60 Mg Capsule.dr, 60 MG PO BID Furosemide (Furosemide) 20 Mg Tab, 20 MG PO DAILY Lactulose (Lactulose) 10 Gm/15 Ml Solution, 45 ML PO QID Loratadine (Loratadine) 10 Mg Tablet, 10 MG PO DAILY Melatonin (Melatonin) 10 Mg Tablet, 10 MG PO QHS Nadolol (Nadolol) 40 Mg Tablet, 40 MG PO DAILY Omeprazole (Omeprazole) 40 Mg Capsule.dr, 40 MG PO BID Oxybutynin Chloride (Oxybutynin Chloride) 5 Mg Tablet, 2.5 MG PO BID Rifaximin (Xifaxan) 200 Mg Tablet, 400 MG PO BID Spironolactone (Spironolactone) 50 Mg Tablet, 50 MG PO BID Scheduled PRN Acetaminophen (Acetaminophen) 325 Mg Tablet, 650 MG PO Q4H PRN for PAIN LEVEL 1- 4 Diclofenac Sodium (Diclofenac Sodium) 1% 100GM Gel..gram., 4 UNITS TOP DAILY PRN for PAIN LEVEL 1-4 APPLIES TO CERVICAL/LUMBAR SPINE Fluticasone Propionate (Flonase Allergy Relief) 9.9 Ml [place].susp, 2 SPRAYS NARES DAILY PRN for ALLERGIES Lidocaine (Lidoderm) 5% Adh..patch, 3 PATCH TD DAILY PRN for PAIN LEVEL 1-4 APPLY TO AREA OF PAIN Nystatin (Nystatin Powder) 15 Gm Powder, 1 DOSE TOP ASDIRECTED PRN for ANTIFUNGAL Nystatin (Nystatin) 15 Gm Cream..g., 1 APLCT TOP DAILY PRN for RASH Rizatriptan Benzoate (Rizatriptan) 10 Mg Tab, 10 MG PO DAILY PRN for MIGRAINE Allergies Coded Allergies: ciprofloxacin (Verified Allergy, Intermediate, HIVES, CHILLS, AND FELT LIGHT HEADED, 10/28/19) fluconazole (Verified Allergy, Intermediate, HIVES, 10/28/19) latex (Verified Allergy, Intermediate, HIVES AND RASH ON HANDS, 10/28/19) strawberry (Verified Allergy, Unknown, 10/28/19) A-FIB/CHADSVASC A-FIB History Current/History of A-Fib/PAF?: No Current PO Anticoag Therapy: No TANGELA MARTINEZ MD Jul 26, 2021 22:53
[2021-07-26 23:50] LABS: INR 1.04; PARTIAL THROMBOPLASTIN TIME 29.2 SECONDS (25.9-37.0)
[2021-07-27 00:17] LABS: RSV AMPLIFICATION NEGATIVE (NEGATIVE)
[2021-07-27] MEDS ORDERED: FLUTICASONE PROP 0.05% NASAL SPRAY 16 GM (FLONASE) NARES PRN (02:00)
[2021-07-27] MEDS ORDERED: NYSTATIN CREAM 15 GM TOP PRN (02:00)
[2021-07-27] MEDS ORDERED: RIZATRIPTAN BENZOATE 10 MG TAB PO PRN (02:00)
[2021-07-27] MEDS ORDERED: LIDOCAINE 5% (LIDODERM) PATCH TD PRN (02:00)
[2021-07-27] MEDS ORDERED: PILL CUTTER 1 EACH XX PRN (02:20)
[2021-07-27 02:50] VITALS: O2SAT 98
[2021-07-27 03:08] LABS: HEMATOCRIT 41.4 % (36.0-47.0); HEMOGLOBIN 14.6 g/dl (12.0-15.5); MEAN CORPUSCULAR HEMOGLOBIN 38.2 pg (27.0-33.0); MEAN CORPUSCULAR HGB CONC 35.3 g/dl (32.0-36.5); MEAN CORPUSCULAR VOLUME 108.4 fl (80.0-96.0); PLATELET COUNT, AUTOMATED 204 10^3/uL (150-450); RED BLOOD COUNT 3.82 10^6/uL (4.00-5.40); WHITE BLOOD COUNT 8.5 10^3/uL (4.0-10.0)
[2021-07-27 03:19] LABS: INR 1.05; PROTHROMBIN TIME 14.1 SECONDS (12.7-14.5)
[2021-07-27 03:28] LABS: APPEARANCE, URINE HAZY (CLEAR); BACTERIA, URINE AUTO 3+ (NEGATIVE); BILIRUBIN, URINE AUTO NEGATIVE (NEGATIVE); BLOOD, URINE BLOOD 2+ (NEGATIVE); COLOR, URINE YELLOW (YELLOW); GLUCOSE, URINE (UA) AUTO 3+ mg/dL (NEGATIVE); KETONE, URINE AUTO NEGATIVE (NEGATIVE); LEUKOCYTE ESTERASE, URINE AUTO 2+ (NEGATIVE); NITRITE, URINE AUTO NEGATIVE (NEGATIVE); PROTEIN, URINE AUTO NEGATIVE (NEGATIVE); RBC, URINE AUTO 1 /HPF (0-3); SPECIFIC GRAVITY URINE AUTO 1.017 (1.002-1.035); WBC, URINE AUTO 20 /HPF (0-3)
[2021-07-27 03:29] LABS: MUCUS, URINE SMALL (NEGATIVE); SQUAMOUS EPITHELIAL CELL UR AU 7 /HPF (0-6)
[2021-07-27 03:37] LABS: CALCIUM LEVEL 9.4 MG/DL (8.5-10.1); CREATININE FOR GFR 1.33 MG/DL (0.55-1.30); GLOMERULAR FILTRATION RATE 43.5 (>51); POTASSIUM SERUM 4.3 MEQ/L (3.5-5.1)
[2021-07-27 03:38] LABS: BILIRUBIN,TOTAL 1.1 MG/DL (0.2-1.0); TOTAL PROTEIN 6.8 GM/DL (6.4-8.2)
[2021-07-27 06:00] VITALS: BP 107/67
[2021-07-27] MEDS: MIDODRINE 5 MG TAB PO SCH ×3 (08:00→16:00)
--- NOTE | 2021-07-27 08:05 | ECGEPIP ---
[facility] - ED Test Date: 2021-07-26 Pat Name: SANIYA HOWELL Department: Room: [place] [address] Gender: Female Interpreter Translator: RADHA : 1960 Requested By: ÁLVARO Chaparro Order Number: [id number] Reading MD: Joey Monsalve Measurements Intervals [place] Rate: 67 P: MA: QRS: 18 QRSD: 84 T: 7 QT: 416 QTc: 439 Interpretive Statements Sinus rhythm NSTTW ABNORMALITY(S) BASELINE ARTIFACT AFFECTS INTERPRETATION SIMILAR TO 01/22/21 Electronically Signed on 07-27-2021 8:05:20 EDT by Joey Monsalve
[2021-07-27] MEDS: OMEPRAZOLE 20 MG CAP PO SCH ×2 (09:00→21:36)
[2021-07-27] MEDS: LACTULOSE 20 GM/30 ML SYRUP UD PO SCH ×4 (09:00→21:38)
[2021-07-27] MEDS: oxyBUTYnin 5 MG TAB PO SCH ×2 (09:00→21:35)
[2021-07-27] MEDS ORDERED: SPIRONOLACTONE 50 MG TAB PO SCH (09:00)
[2021-07-27] MEDS: busPIRone 10 MG TAB PO SCH ×2 (09:00→21:36)
[2021-07-27] MEDS: DULoxetine 30MG CAPSULE (CYMBALTA) PO SCH ×2 (09:00→21:35)
[2021-07-27] MEDS ORDERED: NADOLOL 20MG TABLET PO SCH (09:00)
[2021-07-27] MEDS ORDERED: ENOXAPARIN 40MG/0.4ML SYRINGE (J1650 PER 10MG) SC SCH (09:00)
[2021-07-27] MEDS ORDERED: CLOPIDOGREL 75 MG TAB PO SCH (09:00)
--- NOTE | 2021-07-27 09:01 | IPN ---
PROGRESS NOTE DATE: 07/27/2021 SUBJECTIVE: The patient is disoriented to dates as she is unable to say the year, she says it is July 27 today, [place], [place]. She is able to state her name. No documented fever or chills. She says she has some abdominal discomfort and slight abdominal distention. Dry weight is 192 pounds at baseline. OBJECTIVE: VITALS: Temperature 98.1, pulse 69, respiratory rate 20, blood pressure 107/67, 98% on room air. GENERAL: Awake, alert, oriented to person only. HEENT: No facial asymmetry. NECK: No JVD or thyromegaly. LUNGS: Diminished. HEART: S1, S2, sinus rhythm. ABDOMEN: Distended, positive fluid wave. EXTREMITIES: Chronic edema. Laboratory data, imaging studies, microbiology have been reviewed. Notable for ammonia level of 116, creatinine 1.33. ASSESSMENT/PLAN: This is a 60-year-old female with history of: 1. 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 2. Recurrent metabolic encephalopathy. 3. Dyslipidemia. 4. Reflux. 5. Insulin-dependent type 2 diabetes. 6. Neurogenic bladder. 7. Chronic kidney disease stage 3. 8. Grade 1 heart failure. 9. Class II obesity. 10. B12 and vitamin D deficiency. 11. Chronic depression. 12. Laminectomy. 13. L5-S1 radiculopathy. 14. Ovarian cystectomy. She was admitted on 07/26 due to altered mental status secondary to acute hepatic encephalopathy. IMPRESSION: 1. Acute hepatic encephalopathy. 2. Decompensated liver cirrhosis, non-alcoholic, secondary to CHRISTIANSEN. 3. Abdominal pain secondary to decompensated liver cirrhosis with ascites. 4. Chronic kidney disease stage 3. 5. Insulin-dependent type 2 diabetes. 6. Neurogenic bladder. 7. Grade 1 diastolic heart failure, preserved systolic function. 8. History of TIA. 9. Gastroesophageal reflux disease. 10. Class II obesity. 11. Depression. PLAN: 1. The patient will be kept on Lactulose 45 mL four times daily. No signs of aspiration. 2. She is on prophylactic Rifaximin 400 twice daily. 3. The patient's Plavix and Lovenox will be held. 4. Paracentesis for diagnostic purposes to rule out SBP. 5. Albumin transfusions mean arterial pressure less than 65 along with Lasix for further diuresis.
[2021-07-27] MEDS ORDERED: GLUCOSE 4GM CHEW TABLET PO PRN (12:00)
[2021-07-27] MEDS ORDERED: GLUCAGON INJ 1MG VIAL SC PRN (12:00)
[2021-07-27] MEDS ORDERED: DEXTROSE 50% 50 ML SYRINGE IV PRN (12:00)
[2021-07-27] MEDS: HumaLOG INSULIN (NovoLOG) PER UNIT SC SCH ×3 (12:00→21:37)
[2021-07-27 14:00] VITALS: BP 108/66
--- NOTE | 2021-07-27 18:29 | REP ---
INDICATION: r/o portal vein thrombus / pls complete doppler studies. COMPARISON: Ultrasound 11/15/2020. TECHNIQUE: Real-time sonographic evaluation of ABDOMEN PERFORMED, WITH DUPLEX DOPPLER EVALUATION OF PORTAL VASCULATURE. FINDINGS: There has been a prior cholecystectomy. There is no intrahepatic or extrahepatic biliary dilatation, common bile duct measures 8 mm in maximum diameter. The liver demonstrates heterogeneous echotexture with no gross mass. The pancreas is not well visualized due to overlying bowel gas and body habitus. Spleen is normal in size with no intrinsic abnormality, measuring 10.4 cm in length. There is no evidence of hydronephrosis, cyst, mass, or calculus in either kidney. The right kidney measures 9.3 x 4.1 x 5.1 cm. Left renal dimensions are 10.5 x 5.2 x 5.1 cm. No free fluid is seen. The main portal vein measures 11 mm in diameter. The splenic vein and portal veins demonstrate normal direction of flow, with normal flow velocities and waveforms. There is no portal vein thrombosis. Hepatic veins are patent with no thrombus. Patent main hepatic artery demonstrates peak systolic velocity of 112.1 centimeters/second. IMPRESSION: Heterogeneous echotexture of the liver compatible with diffuse fibrofatty infiltration. No gross liver mass. Study is limited by patient body habitus and bowel gas. Portal vasculature demonstrates normal direction of flow with no thrombosis. No evidence of hepatic vein thrombosis. <Electronically signed by Jose Enrique Finch > 07/27/21 [id number]
[2021-07-27] MEDS: **NOTE PATIENT COMMENT** MISC XX SCH (21:00)
[2021-07-27 21:40] VITALS: BP 102/65
[2021-07-28 06:00] VITALS: BP 120/63
[2021-07-28] MEDS: HumaLOG INSULIN (NovoLOG) PER UNIT SC SCH ×4 (08:11→21:00)
[2021-07-28] MEDS: DULoxetine 30MG CAPSULE (CYMBALTA) PO SCH ×2 (08:12→22:01)
[2021-07-28] MEDS: OMEPRAZOLE 20 MG CAP PO SCH ×2 (08:12→22:00)
[2021-07-28] MEDS: busPIRone 10 MG TAB PO SCH ×2 (08:12→22:01)
[2021-07-28] MEDS: LACTULOSE 20 GM/30 ML SYRUP UD PO SCH ×7 (08:12→22:01)
[2021-07-28] MEDS: oxyBUTYnin 5 MG TAB PO SCH ×2 (08:13→22:00)
[2021-07-28] MEDS: MIDODRINE 5 MG TAB PO SCH ×3 (08:13→17:32)
[2021-07-28] MEDS ORDERED: LACTULOSE 20 GM/30 ML SYRUP UD PO SCH (12:00)
--- NOTE | 2021-07-28 12:29 | IPNPDOC ---
Date Seen The patient was seen on 07/28/21. Progress Note SUBJECTIVE: much more oriented today. no c/o sob, n/v/abd pain,fever, chills oriented to year 2020. OBJECTIVE: VITALS:see below GENERAL: Awake, alert, oriented x3. no distress HEENT: No facial asymmetry. NECK: No JVD or thyromegaly. LUNGS: Diminished. HEART: S1, S2, sinus rhythm. ABDOMEN: Distended, positive fluid wave. EXTREMITIES: Chronic edema. Laboratory data, imaging studies, microbiology have been reviewed. Notable for ammonia level of 116, creatinine 1.33. ASSESSMENT/PLAN: This is a 60-year-old female admitted on 07/26 due to altered mental status secondary to acute hepatic encephalopathy. IMPRESSION: 1. Acute hepatic encephalopathy. 2. Decompensated liver cirrhosis, non-alcoholic, secondary to CHRISTIANSEN. 3. Abdominal pain secondary to decompensated liver cirrhosis with ascites. 4. Chronic kidney disease stage 3. 5. Insulin-dependent type 2 diabetes. 6. Neurogenic bladder. 7. Grade 1 diastolic heart failure, preserved systolic function. 8. History of TIA. 9. Gastroesophageal reflux disease. 10. Class II obesity. 11. Depression. PLAN: almost back to baseline mentation. aaox2 able to state year. awaiting pt eval and ammonia level to decrease further. no significant ascites on us abd. no paracentesis needed. afebrile continued on home meds. may resume home dose of lasix. if improved ammonia<40, may dc home. VS, I&O, 24H, Fishbone Vital Signs/I&O Vital Signs Date Time Temp Pulse Resp B/P (MAP) Pulse Ox O2 Delivery O2 Flow Rate FiO2 07/28/21 06:00 97.6 63 18 120/63 (82) 98 Room Air I&O- Last 24 Hours up to 6 AM 07/28/21 06:00 Intake Total 360 ml Output Total 700 ml Balance -340 ml Laboratory Data 24H LABS Laboratory Tests 2 07/27/21 18:21: Bedside Glucose (Misc Panel) 135H 07/27/21 21:30: Bedside Glucose (Misc Panel) 263H 07/28/21 05:31: Bedside Glucose (Misc Panel) 140H 07/28/21 10:16: Ammonia 108H Microbiology Microbiology 07/27/21 Blood Culture - Preliminary, Resulted No growth after 24 hours . All specim... CRISTOBAL PACHECO MD Jul 28, 2021 12:28
[2021-07-28] MEDS ORDERED: FUROSEMIDE 20 MG TAB PO ONE (12:45)
[2021-07-28 14:00] VITALS: BP 113/64
[2021-07-28 15:46] LABS: CALCIUM LEVEL 8.4 MG/DL (8.5-10.1); CREATININE FOR GFR 1.31 MG/DL (0.55-1.30); GLOMERULAR FILTRATION RATE 44.2 (>51); POTASSIUM SERUM 4.1 MEQ/L (3.5-5.1)
[2021-07-28 20:13] LABS: CALCIUM LEVEL 8.8 MG/DL (8.5-10.1); CREATININE FOR GFR 1.23 MG/DL (0.55-1.30); GLOMERULAR FILTRATION RATE 47.6 (>51); POTASSIUM SERUM 3.9 MEQ/L (3.5-5.1)
[2021-07-28] MEDS: **NOTE PATIENT COMMENT** MISC XX SCH (21:00)
[2021-07-28 21:48] VITALS: BP 114/72
[2021-07-29 00:04] LABS: CALCIUM LEVEL 8.7 MG/DL (8.5-10.1); CREATININE FOR GFR 1.27 MG/DL (0.55-1.30); GLOMERULAR FILTRATION RATE 45.9 (>51); POTASSIUM SERUM 3.6 MEQ/L (3.5-5.1)
[2021-07-29] MEDS: LACTULOSE 20 GM/30 ML SYRUP UD PO SCH ×7 (00:19→12:00)
[2021-07-29 05:34] VITALS: BP 108/58
[2021-07-29] MEDS: HumaLOG INSULIN (NovoLOG) PER UNIT SC SCH ×4 (08:20→20:59)
[2021-07-29] MEDS: busPIRone 10 MG TAB PO SCH ×2 (08:21→20:58)
[2021-07-29] MEDS: DULoxetine 30MG CAPSULE (CYMBALTA) PO SCH ×2 (08:21→20:58)
[2021-07-29] MEDS: MIDODRINE 5 MG TAB PO SCH ×3 (08:21→16:27)
[2021-07-29] MEDS: FUROSEMIDE 20 MG TAB PO SCH (08:22)
[2021-07-29] MEDS: oxyBUTYnin 5 MG TAB PO SCH ×2 (08:22→20:58)
[2021-07-29] MEDS: OMEPRAZOLE 20 MG CAP PO SCH ×2 (08:22→20:58)
--- NOTE | 2021-07-29 10:41 | IPNPDOC ---
Date Seen The patient was seen on 07/29/21. Progress Note SUBJECTIVE: Patient is back to meet baseline mentation no nausea vomiting abdominal pain shortness of breath chest pain pressure tightness Abdominal ultrasound negative for significant ascitic fluid for paracentesis OBJECTIVE: VITALS:see below GENERAL: Anicteric no jaundice awake, alert, oriented x3. no distress HEENT: Moist mucous membranes no pallor or icterus no facial asymmetry. NECK: No JVD or thyromegaly. No stridor LUNGS: Diminished. No wheezing rales or rhonchi HEART: S1, S2, sinus rhythm. ABDOMEN: Obese positive bowel sounds soft nontender nondistended EXTREMITIES: Chronic edema. Laboratory data, imaging studies, microbiology have been reviewed. Notable for ammonia level of 116, creatinine 1.33. ASSESSMENT/PLAN: This is a 60-year-old female admitted on 07/26 due to altered mental status secondary to acute hepatic encephalopathy. IMPRESSION: 1. Acute hepatic encephalopathy. 2. Decompensated liver cirrhosis, non-alcoholic, secondary to CHRISTIANSEN. 3. Abdominal pain secondary to decompensated liver cirrhosis with ascites. 4. Chronic kidney disease stage 3. 5. Insulin-dependent type 2 diabetes. 6. Neurogenic bladder. 7. Grade 1 diastolic heart failure, preserved systolic function. 8. History of TIA. 9. Gastroesophageal reflux disease. 10. Class II obesity. 11. Depression. PLAN: Continue with lactulose 45 mL every 2 hourly until patient's ammonia is less than 50 and may discharge home. Continue all other home medications. Patient appears to be medically stable for discharge today. [facility]&O Vital Signs Date Time Temp Pulse Resp B/P (MAP) Pulse Ox O2 Delivery O2 Flow Rate FiO2 07/29/21 05:34 98.2 63 18 108/58 (75) 95 Room Air I&O- Last 24 Hours up to 6 AM 07/29/21 06:00 Intake Total 1500 ml Output Total 2200 ml Balance -700 ml Laboratory Data 24H LABS Laboratory Tests 2 07/28/21 11:47: Bedside Glucose (Misc Panel) 174H 07/28/21 15:07: Anion Gap 12, Glomerular Filtration Rate 44.2L, Calcium Level 8.4L, Ammonia 166H 07/28/21 16:28: Bedside Glucose (Misc Panel) 218H 07/28/21 19:29: Anion Gap 11, Glomerular Filtration Rate 47.6L, Calcium Level 8.8, Ammonia 125H 07/28/21 20:30: Bedside Glucose (Misc Panel) 191H 07/28/21 23:26: Anion Gap 11, Glomerular Filtration Rate 45.9L, Calcium Level 8.7, Ammonia 92H 07/29/21 07:59: Bedside Glucose (Misc Panel) 186H CBC/BMP Laboratory Tests 07/28/21 15:07 07/28/21 19:29 07/28/21 23:26 Microbiology Microbiology 07/27/21 Blood Culture - Preliminary, Resulted No Growth after 48 hours. All Specime... CRISTOBAL PACHECO MD Jul 29, 2021 10:41
[2021-07-29 11:32] LABS: BASO # 0.1 10^3/uL (0.0-0.2); BASO % 0.7 % (0.0-1.0); EOS # 0.3 10^3/uL (0.0-0.5); EOS % 4.9 % (0.0-3.0); HEMATOCRIT 39.2 % (36.0-47.0); HEMOGLOBIN 13.7 g/dl (12.0-15.5); LYMPH # 1.9 10^3/uL (1.5-5.0); LYMPH % 28.4 % (24.0-44.0); MEAN CORPUSCULAR HEMOGLOBIN 37.7 pg (27.0-33.0); MEAN CORPUSCULAR HGB CONC 34.9 g/dl (32.0-36.5); MONO # 1.2 10^3/uL (0.0-0.8); MONO % 17.6 % (2.0-8.0); NEUTROPHILS # 3.2 10^3/uL (1.5-8.5); NEUTROPHILS % 47.8 % (36.0-66.0); RED BLOOD COUNT 3.63 10^6/uL (4.00-5.40); WHITE BLOOD COUNT 6.7 10^3/uL (4.0-10.0)
[2021-07-29 11:45] LABS: ALBUMIN 2.6 GM/DL (3.2-5.2); BILIRUBIN,TOTAL 1.1 MG/DL (0.2-1.0); CALCIUM LEVEL 8.7 MG/DL (8.5-10.1); CREATININE FOR GFR 1.41 MG/DL (0.55-1.30); GLOMERULAR FILTRATION RATE 40.6 (>51); POTASSIUM SERUM 3.5 MEQ/L (3.5-5.1); TOTAL PROTEIN 6.1 GM/DL (6.4-8.2)
[2021-07-29 12:06] LABS: PLATELET CLUMPS SMALL AMT; PLATELET ESTIMATE NORMAL (NORMAL)
[2021-07-29] MEDS: **NOTE PATIENT COMMENT** MISC XX SCH (20:59)
[2021-07-30 06:00] VITALS: BP 99/53
[2021-07-30] MEDS: busPIRone 10 MG TAB PO SCH ×2 (08:10→21:08)
[2021-07-30] MEDS: MIDODRINE 5 MG TAB PO SCH ×3 (08:10→16:11)
[2021-07-30] MEDS: HumaLOG INSULIN (NovoLOG) PER UNIT SC SCH ×4 (08:10→21:00)
[2021-07-30] MEDS: OMEPRAZOLE 20 MG CAP PO SCH ×2 (08:11→21:09)
[2021-07-30] MEDS: FUROSEMIDE 20 MG TAB PO SCH (08:11)
[2021-07-30] MEDS: oxyBUTYnin 5 MG TAB PO SCH ×2 (08:11→21:09)
[2021-07-30] MEDS: DULoxetine 30MG CAPSULE (CYMBALTA) PO SCH ×2 (08:11→21:08)
[2021-07-30] MEDS: LACTULOSE 20 GM/30 ML SYRUP UD PO SCH ×4 (11:10→17:00)
[2021-07-30] MEDS: **NOTE PATIENT COMMENT** MISC XX SCH (21:00)
[2021-07-30 21:06] LABS: CALCIUM LEVEL 7.7 MG/DL (8.5-10.1); CREATININE FOR GFR 1.64 MG/DL (0.55-1.30); GLOMERULAR FILTRATION RATE 34.1 (>51); POTASSIUM SERUM 3.2 MEQ/L (3.5-5.1)
[2021-07-30] MEDS ORDERED: POTASSIUM CHLORIDE 10MEQ SR TABLET PO ONE (21:35)
[2021-07-31 06:00] VITALS: BP 100/58
[2021-07-31] MEDS: HumaLOG INSULIN (NovoLOG) PER UNIT SC SCH (08:21)
[2021-07-31] MEDS: DULoxetine 30MG CAPSULE (CYMBALTA) PO SCH (08:22)
[2021-07-31] MEDS: MIDODRINE 5 MG TAB PO SCH (08:22)
[2021-07-31] MEDS: OMEPRAZOLE 20 MG CAP PO SCH (08:22)
[2021-07-31] MEDS: oxyBUTYnin 5 MG TAB PO SCH (08:22)
[2021-07-31] MEDS: FUROSEMIDE 20 MG TAB PO SCH (08:23)
[2021-07-31] MEDS: busPIRone 10 MG TAB PO SCH (08:23)
[2021-07-31] MEDS ORDERED: LACTULOSE 20 GM/30 ML SYRUP UD PO SCH (09:00)
--- NOTE | 2021-07-31 13:54 | DSES ---
DISCHARGE SUMMARY DATE OF ADMISSION: 07/26/2021 DATE OF DISCHARGE: 07/31/2021 PRIMARY DISCHARGE DIAGNOSIS: 1. Acute hepatic encephalopathy. 2. Decompensated liver cirrhosis, nonalcoholic secondary to nonalcoholic steatohepatitis. 3. Abdominal pain secondary to decompensated liver cirrhosis with minimal ascites. 4. Chronic kidney disease Stage III. 5. Insulin dependent Type 2 diabetes. 6. Neurogenic bladder. 7. Grade 1 diastolic heart failure with preserved systolic function, compensated. 8. History of TIA. 9. Class II obesity. 10.Gastroesophageal reflux disease. 11.Depression. DISCHARGE MEDICATIONS: 1. Acetaminophen 650 mg q. 4 hours as needed. 2. Buspirone 30 b.i.d. 3. Calcium carbonate 500 b.i.d. 4. Vitamin D 10 mcg b.i.d. 5. Plavix 75 daily. 6. Diclofenac topically as needed. 7. Trulicity 1.56 q. every week. 8. Duloxetine 60 b.i.d. 9. Flonase two sprays daily as needed. 10.Lasix 20 daily. 11.Lactulose 45 ml p.o. q.i.d. 12.Lidocaine patch, three patches daily as needed. 13.Loratadine 10 daily. 14.Melatonin 10 q.h.s. 15.Nadolol 40 daily. 16.Nystatin topically as needed. 17.Prilosec 40 b.i.d. 18.Oxybutynin 2.5 b.i.d. 19.Xifaxan 400 b.i.d. 20.Rizatriptan 10 daily as needed. 21.Spironolactone 50 b.i.d. DISCHARGE INSTRUCTIONS: Follow-up with primary care physician and special programs director within one week of hospital discharge. Continue with Lactulose, titrated to two to three bowel movements daily. Patient may take Lactulose q. 2 hourly if patient becomes lethargic with worsening ammonia level. HOSPITAL COURSE: This is a 60-year-old female admitted on 07/26/2021 with confusion without fever, chills or abdominal pain. Patient was found to have hepatic encephalopathy with ammonia level of 166, given Lactulose 45 ml q. 2 hourly with decrease in ammonia level to 47. Patient's mentation improved back to baseline. She was initially disoriented to place. She was medically stable for discharge on Saturday but was unable to be discharged on the weekend. She was kept under [facility] status and was continued on her home medications. She had episodes of low potassium levels which were supplemented. PHYSICAL EXAMINATION ON DISCHARGE: VITAL SIGNS: Temperature is 98.6, pulse was 79, respiratory rate 19, blood pressure is 100/58, 97% on room air. GENERAL: She is awake, alert and oriented to person, place and time, answering questions appropriately. NECK: No JVD or thyromegaly. LUNGS: Clear to auscultation. No wheezing or rales. HEART: S1 and S2, sinus rhythm. ABDOMEN: Soft, nontender and distended. No rebound or guarding. Positive bowel sounds. EXTREMITIES: Chronic edema. LABORATORY DATA/IMAGING STUDIES/MICROBIOLOGY: Please see the chart. TIME SPENT ON DISCHARGE: 30 minutes. HORACE
== END 2021-07-31 10:05 | DRG 441 ==
LOC: EDBD 18:10 → M ED 18:10 → M ED INP 18:11 → M MS5PR 07-27 02:40
PROVIDERS: ADMIT Internal Medicine; ATTEND General Practice
DX: K75.81 Nonalcoholic steatohepatitis (NASH) (principal); K72.00 Acute and subacute hepatic failure without coma; I50.32 Chronic diastolic (congestive) heart failure; K74.60 Unspecified cirrhosis of liver; N18.30 Chronic kidney disease, stage 3 unspecified; E66.9 Obesity, unspecified; F32.9 Major depressive disorder, single episode, unspecified; K21.9 Gastro-esophageal reflux disease without esophagitis; Z86.73 Personal history of transient ischemic attack (TIA), and cerebral infarction without residual deficits; E11.9 Type 2 diabetes mellitus without complications; Z79.4 Long term (current) use of insulin; Z79.899 Other long term (current) drug therapy; Z87.891 Personal history of nicotine dependence; N31.9 Neuromuscular dysfunction of bladder, unspecified; Z91.018 Allergy to other foods; Z91.040 Latex allergy status; Z88.8 Allergy status to other drugs, medicaments and biological substances; E53.8 Deficiency of other specified B group vitamins; E55.9 Vitamin D deficiency, unspecified; E78.5 Hyperlipidemia, unspecified

== ENCOUNTER → 2021-07-26 | Outpatient (REF) | payer MEDICARE, MEDICAID ==
[~2021-07-26] MED LIST changes: +ACET1TAB55 PO; +DICL1GEL3 TOP; -FLON1SPR; +FLON1SPR NARES; -KLOR10TA76 PO; +LIDO5DIS41 TD; +NADO40TA PO; +NYST10CR TOP; +OMEP-221 PO; +POTA-136 PO; +RA M10TA PO
[2021-07-26 11:49] LABS: BASO % 0.6 % (0.0-1.0); EOS # 0.3 10^3/uL (0.0-0.5); EOS % 4.4 % (0.0-3.0); HEMATOCRIT 43.7 % (36.0-47.0); HEMOGLOBIN 15.2 g/dl (12.0-15.5); LYMPH # 2.3 10^3/uL (1.5-5.0); LYMPH % 31.8 % (24.0-44.0); MEAN CORPUSCULAR HEMOGLOBIN 37.8 pg (27.0-33.0); MEAN CORPUSCULAR HGB CONC 34.8 g/dl (32.0-36.5); MEAN CORPUSCULAR VOLUME 108.7 fl (80.0-96.0); MONO % 13.5 % (2.0-8.0); NEUTROPHILS # 3.6 10^3/uL (1.5-8.5); NEUTROPHILS % 49.3 % (36.0-66.0); PLATELET COUNT, AUTOMATED 214 10^3/uL (150-450); RED BLOOD COUNT 4.02 10^6/uL (4.00-5.40); WHITE BLOOD COUNT 7.2 10^3/uL (4.0-10.0)
[2021-07-26 12:15] LABS: ALBUMIN 3.1 GM/DL (3.2-5.2); BILIRUBIN,TOTAL 1.8 MG/DL (0.2-1.0); CALCIUM LEVEL 9.4 MG/DL (8.5-10.1); CREATININE FOR GFR 1.33 MG/DL (0.55-1.30); GLOMERULAR FILTRATION RATE 43.5 (>51); POTASSIUM SERUM 4.2 MEQ/L (3.5-5.1); TOTAL PROTEIN 6.7 GM/DL (6.4-8.2)
== END ==
PROVIDERS: ATTEND Family Medicine
DX: K72.90 Hepatic failure, unspecified without coma (principal); N39.0 Urinary tract infection, site not specified

== ENCOUNTER → 2021-09-07 | Outpatient (CLI) | payer MEDICARE, MEDICAID ==
[~2021-09-07] MED LIST changes: +ACET1TAB55 PO; +DICL1GEL3 TOP; +LIDO5DIS41 TD; +NADO40TA PO; +NYST10CR TOP; +OMEP-221 PO; +RA M10TA PO
[2021-09-07 13:19] LABS: BASO # 0.1 10^3/uL (0.0-0.2); BASO % 0.8 % (0.0-1.0); EOS # 0.3 10^3/uL (0.0-0.5); EOS % 4.6 % (0.0-3.0); HEMATOCRIT 41.1 % (36.0-47.0); HEMOGLOBIN 14.1 g/dl (12.0-15.5); LYMPH # 1.9 10^3/uL (1.5-5.0); LYMPH % 25.6 % (24.0-44.0); MEAN CORPUSCULAR HEMOGLOBIN 37.6 pg (27.0-33.0); MEAN CORPUSCULAR HGB CONC 34.3 g/dl (32.0-36.5); MEAN CORPUSCULAR VOLUME 109.6 fl (80.0-96.0); MONO # 0.9 10^3/uL (0.0-0.8); MONO % 12.1 % (2.0-8.0); NEUTROPHILS # 4.2 10^3/uL (1.5-8.5); PLATELET COUNT, AUTOMATED 151 10^3/uL (150-450); RED BLOOD COUNT 3.75 10^6/uL (4.00-5.40); WHITE BLOOD COUNT 7.4 10^3/uL (4.0-10.0)
[2021-09-07 13:57] LABS: ALBUMIN 2.9 GM/DL (3.2-5.2); BILIRUBIN,TOTAL 1.4 MG/DL (0.2-1.0); CALCIUM LEVEL 9.1 MG/DL (8.8-10.2); CHOLESTEROL RISK RATIO 3.125 (<5); CREATININE FOR GFR 1.26 MG/DL (0.55-1.30); FREE T4 0.85 NG/DL (0.76-1.46); GLOMERULAR FILTRATION RATE 46.1 (>45); POTASSIUM SERUM 4.3 MEQ/L (3.5-5.1); THYROID STIMULATING HORMONE 1.87 uIU/ML (0.358-3.740); TOTAL 25(OH) VITAMIN D 39.1 NG/ML (30.0-100.0); TOTAL PROTEIN 6.6 GM/DL (6.4-8.2)
[2021-09-07 13:58] LABS: PTH INTACT 44.9 PG/ML (18.5-88.0)
[2021-09-07 14:11] LABS: HEMOGLOBIN A1c 7.2 %
== END ==
LOC: M PLALAB 10:45
PROVIDERS: ATTEND Family Medicine
DX: E53.8 Deficiency of other specified B group vitamins (principal); K72.90 Hepatic failure, unspecified without coma; E55.9 Vitamin D deficiency, unspecified; E11.3299 Type 2 diabetes mellitus wit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, unspecified eye; Z79.899 Other long term (current) drug therapy

== ENCOUNTER → 2021-09-13 | Outpatient (REF) | payer MEDICARE, MEDICAID ==
[2021-09-13 13:17] LABS: FREE T4 1.1 NG/DL (0.76-1.46); THYROID STIMULATING HORMONE 2.68 uIU/ML (0.358-3.740)
== END ==
PROVIDERS: ATTEND Family Medicine
DX: K72.90 Hepatic failure, unspecified without coma (principal); Z79.899 Other long term (current) drug therapy

== ENCOUNTER → 2021-10-31 | Outpatient (REF) | payer MEDICARE, MEDICAID ==
[2021-10-31 17:58] LABS: APPEARANCE, URINE HAZY (CLEAR); BACTERIA, URINE AUTO 1+ (NEGATIVE); BILIRUBIN, URINE AUTO NEGATIVE (NEGATIVE); BLOOD, URINE BLOOD NEGATIVE (NEGATIVE); COLOR, URINE YELLOW (YELLOW); GLUCOSE, URINE (UA) AUTO 3+ mg/dL (NEGATIVE); KETONE, URINE AUTO NEGATIVE (NEGATIVE); LEUKOCYTE ESTERASE, URINE AUTO 2+ (NEGATIVE); NITRITE, URINE AUTO NEGATIVE (NEGATIVE); PROTEIN, URINE AUTO NEGATIVE (NEGATIVE); RBC, URINE AUTO 0 /HPF (0-3); SPECIFIC GRAVITY URINE AUTO 1.007 (1.002-1.035); SQUAMOUS EPITHELIAL CELL UR AU 1 /HPF (0-6); UROBILINOGEN, URINE AUTO 0.2 mg/dL (0.0-2.0); WBC, URINE AUTO 36 /HPF (0-3)
== END ==
PROVIDERS: ATTEND Family Medicine
DX: N39.0 Urinary tract infection, site not specified (principal)
CPT/HCPCS: 81001; 87088; 87186; G0463

== ENCOUNTER 2021-12-13 11:26 | Emergency (ER) | payer MEDICARE, MEDICAID ==
[~2021-12-13] VITALS: Ht 162.6 cm; Wt 104.5 kg
[~2021-12-13 11:26] MED LIST changes: +FLON1SPR; -FLON1SPR NARES; -OMEP-221 PO; +OMEP40CA5 PO
[2021-12-13] MEDS ORDERED: NS 1,000 ML IV SCH (12:00)
[2021-12-13 12:21] LABS: BASO # 0.1 10^3/uL (0.0-0.2); BASO % 0.8 % (0.0-1.0); EOS # 0.4 10^3/uL (0.0-0.5); EOS % 4.3 % (0.0-3.0); HEMATOCRIT 44.3 % (36.0-47.0); HEMOGLOBIN 15.5 g/dl (12.0-15.5); LYMPH # 2.3 10^3/uL (1.5-5.0); LYMPH % 25.4 % (24.0-44.0); MEAN CORPUSCULAR HEMOGLOBIN 37.8 pg (27.0-33.0); MONO # 1.1 10^3/uL (0.0-0.8); MONO % 12.2 % (2.0-8.0); NEUTROPHILS # 5.2 10^3/uL (1.5-8.5); NEUTROPHILS % 56.6 % (36.0-66.0); PLATELET COUNT, AUTOMATED 190 10^3/uL (150-450); WHITE BLOOD COUNT 9.1 10^3/uL (4.0-10.0)
[2021-12-13 13:02] LABS: BILIRUBIN,DIRECT 0.5 MG/DL (0.0-0.2); BILIRUBIN,TOTAL 1.9 MG/DL (0.2-1.0); CALCIUM LEVEL 9.3 MG/DL (8.8-10.2); CREATININE FOR GFR 1.51 MG/DL (0.55-1.30); GLOMERULAR FILTRATION RATE 37.4 (>45); POTASSIUM SERUM 4.2 MEQ/L (3.5-5.1); THYROID STIMULATING HORMONE 2.54 uIU/ML (0.358-3.740)
[2021-12-13] MEDS ORDERED: NS 500 ML IV ONE (13:20)
[2021-12-13] MEDS ORDERED: LACTULOSE 20 GM/30 ML SYRUP UD PO ONE (14:20)
[2021-12-13] MEDS ORDERED: HOME MED LIST COMPLETE! XX SCH (14:25)
[2021-12-13] MEDS ORDERED: CEPHALEXIN 500 MG CAP PO ONE (14:25)
[2021-12-13] MEDS ORDERED: CEPH500C PO (14:27)
[2021-12-13 15:45] VITALS: BP 124/82
[2021-12-14] MEDS ORDERED: CEPH500C PO (03:42)
[2021-12-14] MEDS ORDERED: TUMS500C PO (03:42)
== END 2021-12-13 16:00 | disposition home or self-care (01) ==
LOC: M ED 11:26 → EDBD 11:26 → M ED 16:00
DX: N39.0 Urinary tract infection, site not specified (principal); I50.9 Heart failure, unspecified; E11.9 Type 2 diabetes mellitus without complications; F32.9 Major depressive disorder, single episode, unspecified; Z86.73 Personal history of transient ischemic attack (TIA), and cerebral infarction without residual deficits; K21.9 Gastro-esophageal reflux disease without esophagitis; N18.30 Chronic kidney disease, stage 3 unspecified; N31.9 Neuromuscular dysfunction of bladder, unspecified; K63.3 Ulcer of intestine; Z91.14 Patient's other noncompliance with medication regimen; K75.81 Nonalcoholic steatohepatitis (NASH); D64.9 Anemia, unspecified; Z87.891 Personal history of nicotine dependence; Z79.4 Long term (current) use of insulin; Z79.899 Other long term (current) drug therapy; Z88.1 Allergy status to other antibiotic agents; Z91.040 Latex allergy status; Z91.018 Allergy to other foods

== ENCOUNTER 2021-12-13 22:22 | Inpatient (IN) | payer MEDICARE, MEDICAID ==
[~2021-12-13] VITALS: Ht 162.6 cm; Wt 94.9 kg
[2021-12-13 23:55] LABS: VENOUS BASE EXCESS -2.9 (-2.0-2.0); VENOUS HCO3 22.9 MEQ/L (23.0-27.0); VENOUS PARTIAL PRESSURE CO2 43.5 mmHg (38.0-50.0); VENOUS PARTIAL PRESSURE O2 55.5 mmHg (30.0-50.0); VENOUS STANDARD HCO3 21.8 MEQ/L; VENOUS TOTAL CO2 24.3 MEQ/L (24.0-28.0)
[2021-12-14] VITALS (7 sets, daily range): BP systolic 80–118; BP diastolic 50–62
[2021-12-14 00:17] LABS: BASO # 0.1 10^3/uL (0.0-0.2); BASO % 0.7 % (0.0-1.0); EOS # 0.5 10^3/uL (0.0-0.5); EOS % 4.6 % (0.0-3.0); HEMATOCRIT 41.8 % (36.0-47.0); HEMOGLOBIN 14.8 g/dl (12.0-15.5); LYMPH # 2.5 10^3/uL (1.5-5.0); LYMPH % 25.2 % (24.0-44.0); MEAN CORPUSCULAR HEMOGLOBIN 38.5 pg (27.0-33.0); MEAN CORPUSCULAR HGB CONC 35.4 g/dl (32.0-36.5); MEAN CORPUSCULAR VOLUME 108.9 fl (80.0-96.0); MONO # 1.3 10^3/uL (0.0-0.8); MONO % 13.4 % (2.0-8.0); NEUTROPHILS # 5.3 10^3/uL (1.5-8.5); NEUTROPHILS % 54.9 % (36.0-66.0); PLATELET COUNT, AUTOMATED 176 10^3/uL (150-450); RED BLOOD COUNT 3.84 10^6/uL (4.00-5.40); WHITE BLOOD COUNT 9.8 10^3/uL (4.0-10.0)
[2021-12-14 00:40] LABS: ACETAMINOPHEN LEVEL < 2.0 UG/ML (10.0-30.0); ALBUMIN 2.8 GM/DL (3.2-5.2); ALT/SGPT 22 U/L (12-78); BILIRUBIN,DIRECT 0.3 MG/DL (0.0-0.2); BILIRUBIN,TOTAL 1.3 MG/DL (0.2-1.0); BLOOD UREA NITROGEN 22 MG/DL (7-18); CALCIUM LEVEL 8.7 MG/DL (8.8-10.2); CARBON DIOXIDE LEVEL 26 MEQ/L (21-32); CHLORIDE LEVEL 104 MEQ/L (98-107); CREATININE FOR GFR 1.49 MG/DL (0.55-1.30); ETHYL ALCOHOL (ETHANOL) < 0.003 % (0.000-0.010); GLUCOSE, FASTING 188 MG/DL (70-100); POTASSIUM SERUM 4.3 MEQ/L (3.5-5.1); SALICYLATE LEVEL < 1.7 MG/DL (5.0-30.0); SODIUM LEVEL 138 MEQ/L (136-145); TOTAL PROTEIN 6.5 GM/DL (6.4-8.2)
[2021-12-14] MEDS ORDERED: LACTULOSE 20 GM/30 ML SYRUP UD PO ONE (00:45)
[2021-12-14 01:08] LABS: INR 1.13; PROTHROMBIN TIME 14.9 SECONDS (12.7-14.5)
[2021-12-14 01:09] LABS: PARTIAL THROMBOPLASTIN TIME 27.2 SECONDS (25.9-37.0)
[2021-12-14] MEDS ORDERED: DEXTROSE 50% 50 ML SYRINGE IV PRN (03:05)
[2021-12-14] MEDS ORDERED: GLUCAGON INJ 1MG VIAL SC PRN (03:05)
[2021-12-14] MEDS ORDERED: GLUCOSE 4GM CHEW TABLET PO PRN (03:05)
[2021-12-14] MEDS ORDERED: FLUTICASONE PROP 0.05% NASAL SPRAY 16 GM (FLONASE) PRN (03:40)
[2021-12-14] MEDS ORDERED: ACETAMINOPHEN TAB 650MG DOSE (2X325MG) PO PRN (03:40)
[2021-12-14] MEDS ORDERED: CEPH500C PO (03:42)
[2021-12-14] MEDS ORDERED: TUMS500C PO (03:42)
[2021-12-14] MEDS ORDERED: HOME MED LIST COMPLETE! XX SCH (03:45)
[2021-12-14 05:49] LABS: ALBUMIN 2.7 GM/DL (3.2-5.2); BILIRUBIN,TOTAL 1.2 MG/DL (0.2-1.0); CALCIUM LEVEL 8.7 MG/DL (8.8-10.2); CREATININE FOR GFR 1.49 MG/DL (0.55-1.30); POTASSIUM SERUM 4.9 MEQ/L (3.5-5.1); TOTAL PROTEIN 6.5 GM/DL (6.4-8.2)
[2021-12-14] MEDS ORDERED: PILL CUTTER 1 EACH XX PRN (05:55)
[2021-12-14] MEDS: HEPARIN SOD (PORCINE) 5000UNITS/ML 1ML VIAL/SYRINGE SC SCH ×3 (06:09→21:18)
[2021-12-14] MEDS: HumaLOG INSULIN (NovoLOG) PER UNIT SC SCH ×4 (07:30→21:00)
[2021-12-14] MEDS ORDERED: LIDOCAINE 5% (LIDODERM) PATCH TD PRN (09:00)
[2021-12-14] MEDS: LACTULOSE 20 GM/30 ML SYRUP UD PO SCH ×3 (09:18→21:16)
[2021-12-14] MEDS: CEPHALEXIN 500 MG CAP PO SCH ×2 (09:19→21:18)
[2021-12-14] MEDS: PANTOPRAZOLE 20 MG TAB PO SCH (09:20)
[2021-12-14] MEDS: SPIRONOLACTONE 50 MG TAB PO SCH ×2 (09:20→16:49)
[2021-12-14] MEDS: NADOLOL 20MG TABLET PO SCH (09:22)
[2021-12-14] MEDS: VITAMIN D (CHOLECALCIFEROL) 400 INTERNATIONAL UNITS TAB PO SCH ×2 (09:22→21:24)
[2021-12-14] MEDS: CLOPIDOGREL 75 MG TAB PO SCH (09:22)
[2021-12-14] MEDS: CALCIUM CARBONATE 500 MG CHEW U/D PO SCH ×2 (09:22→21:18)
[2021-12-14] MEDS: oxyBUTYnin 5 MG TAB PO SCH ×2 (09:23→21:20)
[2021-12-14] MEDS: LORATADINE 10 MG TAB PO SCH (09:24)
[2021-12-14] MEDS: FUROSEMIDE 20 MG TAB PO SCH (09:24)
[2021-12-14] MEDS ORDERED: MIDODRINE 5 MG TAB PO ONE (20:10)
[2021-12-14] MEDS: rifAXIMin 550 MG TAB (XIFAXAN) PO SCH (21:24)
[2021-12-15 03:49] VITALS: BP 92/61
[2021-12-15 04:13] LABS: HEMATOCRIT 37.9 % (36.0-47.0); HEMOGLOBIN 13.6 g/dl (12.0-15.5); MEAN CORPUSCULAR HEMOGLOBIN 38.5 pg (27.0-33.0); MEAN CORPUSCULAR HGB CONC 35.9 g/dl (32.0-36.5); MEAN CORPUSCULAR VOLUME 107.4 fl (80.0-96.0); PLATELET COUNT, AUTOMATED 180 10^3/uL (150-450); RED BLOOD COUNT 3.53 10^6/uL (4.00-5.40); WHITE BLOOD COUNT 9.4 10^3/uL (4.0-10.0)
[2021-12-15 04:43] LABS: ALBUMIN 2.6 GM/DL (3.2-5.2); BILIRUBIN,TOTAL 1.2 MG/DL (0.2-1.0); CALCIUM LEVEL 8.7 MG/DL (8.8-10.2); CREATININE FOR GFR 1.4 MG/DL (0.55-1.30); GLOMERULAR FILTRATION RATE 40.8 (>45); POTASSIUM SERUM 3.8 MEQ/L (3.5-5.1); TOTAL PROTEIN 6.5 GM/DL (6.4-8.2)
[2021-12-15] MEDS: HEPARIN SOD (PORCINE) 5000UNITS/ML 1ML VIAL/SYRINGE SC SCH ×3 (07:00→21:06)
[2021-12-15] MEDS: HumaLOG INSULIN (NovoLOG) PER UNIT SC SCH ×4 (07:30→21:00)
[2021-12-15 08:30] VITALS: BP 101/63
[2021-12-15] MEDS: NADOLOL 20MG TABLET PO SCH (09:00)
[2021-12-15] MEDS: SPIRONOLACTONE 50 MG TAB PO SCH ×2 (09:26→17:49)
[2021-12-15] MEDS: LACTULOSE 20 GM/30 ML SYRUP UD PO SCH ×3 (09:26→21:05)
[2021-12-15] MEDS: LORATADINE 10 MG TAB PO SCH (09:26)
[2021-12-15] MEDS: CALCIUM CARBONATE 500 MG CHEW U/D PO SCH ×2 (09:27→21:05)
[2021-12-15] MEDS: oxyBUTYnin 5 MG TAB PO SCH ×2 (09:27→21:05)
[2021-12-15] MEDS: CLOPIDOGREL 75 MG TAB PO SCH (09:27)
[2021-12-15] MEDS: CEPHALEXIN 500 MG CAP PO SCH ×2 (09:27→21:05)
[2021-12-15] MEDS: VITAMIN D (CHOLECALCIFEROL) 400 INTERNATIONAL UNITS TAB PO SCH ×2 (09:27→21:05)
[2021-12-15] MEDS: rifAXIMin 550 MG TAB (XIFAXAN) PO SCH ×2 (09:27→21:05)
[2021-12-15] MEDS: FUROSEMIDE 20 MG TAB PO SCH (09:27)
[2021-12-15] MEDS: PANTOPRAZOLE 20 MG TAB PO SCH (09:27)
[2021-12-15 12:19] VITALS: BP 101/62
[2021-12-15 16:46] VITALS: BP 132/63
[2021-12-15 18:00] VITALS: BP 141/44
[2021-12-15] MEDS: **NOTE PATIENT COMMENT** MISC XX SCH (19:37)
[2021-12-15 22:00] VITALS: BP 117/61
[2021-12-16] MEDS: HEPARIN SOD (PORCINE) 5000UNITS/ML 1ML VIAL/SYRINGE SC SCH ×3 (05:28→20:47)
[2021-12-16 06:00] VITALS: BP 115/62
[2021-12-16 06:38] LABS: HEMATOCRIT 37.6 % (36.0-47.0); HEMOGLOBIN 13.6 g/dl (12.0-15.5); MEAN CORPUSCULAR HEMOGLOBIN 38.6 pg (27.0-33.0); MEAN CORPUSCULAR HGB CONC 36.2 g/dl (32.0-36.5); MEAN CORPUSCULAR VOLUME 106.8 fl (80.0-96.0); PLATELET COUNT, AUTOMATED 198 10^3/uL (150-450); RED BLOOD COUNT 3.52 10^6/uL (4.00-5.40); WHITE BLOOD COUNT 8.2 10^3/uL (4.0-10.0)
[2021-12-16 07:00] LABS: ALBUMIN 2.8 GM/DL (3.2-5.2); BILIRUBIN,TOTAL 1.5 MG/DL (0.2-1.0); CALCIUM LEVEL 9.3 MG/DL (8.8-10.2); CREATININE FOR GFR 1.14 MG/DL (0.55-1.30); GLOMERULAR FILTRATION RATE 51.8 (>45); POTASSIUM SERUM 3.7 MEQ/L (3.5-5.1); TOTAL PROTEIN 6.2 GM/DL (6.4-8.2)
[2021-12-16] MEDS: CALCIUM CARBONATE 500 MG CHEW U/D PO SCH ×2 (08:08→20:45)
[2021-12-16] MEDS: PANTOPRAZOLE 20 MG TAB PO SCH (08:08)
[2021-12-16] MEDS: CEPHALEXIN 500 MG CAP PO SCH ×2 (08:08→20:45)
[2021-12-16] MEDS: HumaLOG INSULIN (NovoLOG) PER UNIT SC SCH ×4 (08:08→20:48)
[2021-12-16] MEDS: VITAMIN D (CHOLECALCIFEROL) 400 INTERNATIONAL UNITS TAB PO SCH ×2 (08:08→20:45)
[2021-12-16] MEDS: rifAXIMin 550 MG TAB (XIFAXAN) PO SCH ×2 (08:08→20:45)
[2021-12-16] MEDS: oxyBUTYnin 5 MG TAB PO SCH ×2 (08:09→20:45)
[2021-12-16] MEDS: LACTULOSE 20 GM/30 ML SYRUP UD PO SCH ×4 (08:09→20:46)
[2021-12-16] MEDS: CLOPIDOGREL 75 MG TAB PO SCH (08:09)
[2021-12-16] MEDS: LORATADINE 10 MG TAB PO SCH (08:09)
[2021-12-16] MEDS: SPIRONOLACTONE 50 MG TAB PO SCH ×2 (08:09→16:59)
[2021-12-16] MEDS: FUROSEMIDE 20 MG TAB PO SCH (08:09)
[2021-12-16] MEDS: NADOLOL 20MG TABLET PO SCH (08:26)
[2021-12-16 14:00] VITALS: BP 115/89
[2021-12-16] MEDS: **NOTE PATIENT COMMENT** MISC XX SCH (21:01)
[2021-12-16 22:00] VITALS: BP 118/86
[2021-12-17 06:00] VITALS: BP 110/81
[2021-12-17] MEDS: HEPARIN SOD (PORCINE) 5000UNITS/ML 1ML VIAL/SYRINGE SC SCH ×3 (06:21→21:28)
[2021-12-17 06:56] LABS: HEMATOCRIT 43.1 % (36.0-47.0); HEMOGLOBIN 14.8 g/dl (12.0-15.5); MEAN CORPUSCULAR HEMOGLOBIN 37.9 pg (27.0-33.0); MEAN CORPUSCULAR HGB CONC 34.3 g/dl (32.0-36.5); MEAN CORPUSCULAR VOLUME 110.2 fl (80.0-96.0); PLATELET COUNT, AUTOMATED 222 10^3/uL (150-450); RED BLOOD COUNT 3.91 10^6/uL (4.00-5.40); WHITE BLOOD COUNT 9.2 10^3/uL (4.0-10.0)
[2021-12-17 07:26] LABS: ALBUMIN 2.9 GM/DL (3.2-5.2); BILIRUBIN,TOTAL 1.8 MG/DL (0.2-1.0); CALCIUM LEVEL 9.5 MG/DL (8.8-10.2); CREATININE FOR GFR 1.28 MG/DL (0.55-1.30); GLOMERULAR FILTRATION RATE 45.3 (>45); TOTAL PROTEIN 6.8 GM/DL (6.4-8.2)
[2021-12-17 08:00] VITALS: BP 108/80
[2021-12-17] MEDS: HumaLOG INSULIN (NovoLOG) PER UNIT SC SCH ×4 (08:06→21:29)
[2021-12-17] MEDS: CALCIUM CARBONATE 500 MG CHEW U/D PO SCH ×2 (08:06→21:27)
[2021-12-17] MEDS: PANTOPRAZOLE 20 MG TAB PO SCH (08:06)
[2021-12-17] MEDS: LACTULOSE 20 GM/30 ML SYRUP UD PO SCH ×4 (08:06→21:27)
[2021-12-17] MEDS: rifAXIMin 550 MG TAB (XIFAXAN) PO SCH ×2 (08:07→21:27)
[2021-12-17] MEDS: VITAMIN D (CHOLECALCIFEROL) 400 INTERNATIONAL UNITS TAB PO SCH ×2 (08:07→21:27)
[2021-12-17] MEDS: CLOPIDOGREL 75 MG TAB PO SCH (08:07)
[2021-12-17] MEDS: SPIRONOLACTONE 50 MG TAB PO SCH ×2 (08:07→16:50)
[2021-12-17] MEDS: CEPHALEXIN 500 MG CAP PO SCH ×2 (08:07→21:27)
[2021-12-17] MEDS: FUROSEMIDE 20 MG TAB PO SCH (08:07)
[2021-12-17] MEDS: oxyBUTYnin 5 MG TAB PO SCH ×2 (08:07→21:28)
[2021-12-17] MEDS: LORATADINE 10 MG TAB PO SCH (08:07)
[2021-12-17] MEDS: NADOLOL 20MG TABLET PO SCH (08:08)
[2021-12-17 14:00] VITALS: BP 113/78
[2021-12-17 21:00] VITALS: BP 114/76
[2021-12-17] MEDS: **NOTE PATIENT COMMENT** MISC XX SCH (21:00)
[2021-12-18 05:22] LABS: HEMATOCRIT 42.2 % (36.0-47.0); HEMOGLOBIN 14.7 g/dl (12.0-15.5); MEAN CORPUSCULAR HEMOGLOBIN 38.3 pg (27.0-33.0); MEAN CORPUSCULAR HGB CONC 34.8 g/dl (32.0-36.5); MEAN CORPUSCULAR VOLUME 109.9 fl (80.0-96.0); PLATELET COUNT, AUTOMATED 216 10^3/uL (150-450); RED BLOOD COUNT 3.84 10^6/uL (4.00-5.40)
[2021-12-18 06:00] VITALS: BP 115/76
[2021-12-18] MEDS: HEPARIN SOD (PORCINE) 5000UNITS/ML 1ML VIAL/SYRINGE SC SCH ×3 (06:32→21:03)
[2021-12-18 06:48] LABS: ALBUMIN 2.7 GM/DL (3.2-5.2); BILIRUBIN,TOTAL 1.4 MG/DL (0.2-1.0); CALCIUM LEVEL 10.2 MG/DL (8.8-10.2); CREATININE FOR GFR 1.27 MG/DL (0.55-1.30); GLOMERULAR FILTRATION RATE 45.7 (>45); POTASSIUM SERUM 3.9 MEQ/L (3.5-5.1); TOTAL PROTEIN 6.8 GM/DL (6.4-8.2)
[2021-12-18] MEDS: HumaLOG INSULIN (NovoLOG) PER UNIT SC SCH ×4 (08:23→20:25)
[2021-12-18] MEDS: NADOLOL 20MG TABLET PO SCH (09:00)
[2021-12-18] MEDS: PANTOPRAZOLE 20 MG TAB PO SCH (11:27)
[2021-12-18] MEDS: CALCIUM CARBONATE 500 MG CHEW U/D PO SCH ×2 (11:27→21:03)
[2021-12-18] MEDS: CEPHALEXIN 500 MG CAP PO SCH ×2 (11:27→21:03)
[2021-12-18] MEDS: VITAMIN D (CHOLECALCIFEROL) 400 INTERNATIONAL UNITS TAB PO SCH ×2 (11:27→21:03)
[2021-12-18] MEDS: rifAXIMin 550 MG TAB (XIFAXAN) PO SCH ×2 (11:27→21:03)
[2021-12-18] MEDS: CLOPIDOGREL 75 MG TAB PO SCH (11:28)
[2021-12-18] MEDS: oxyBUTYnin 5 MG TAB PO SCH ×2 (11:28→21:03)
[2021-12-18] MEDS: FUROSEMIDE 20 MG TAB PO SCH (11:28)
[2021-12-18] MEDS: SPIRONOLACTONE 50 MG TAB PO SCH ×2 (11:28→18:06)
[2021-12-18] MEDS: LORATADINE 10 MG TAB PO SCH (11:28)
[2021-12-18] MEDS: LACTULOSE 20 GM/30 ML SYRUP UD PO SCH ×4 (11:29→21:03)
[2021-12-18] MEDS ORDERED: XIFA550T PO (11:46)
[2021-12-18 14:00] VITALS: BP 152/80
[2021-12-18 21:00] VITALS: BP 101/58
[2021-12-18] MEDS: **NOTE PATIENT COMMENT** MISC XX SCH (21:00)
[2021-12-19] MEDS: HEPARIN SOD (PORCINE) 5000UNITS/ML 1ML VIAL/SYRINGE SC SCH ×3 (05:15→21:29)
[2021-12-19 06:00] VITALS: BP 102/58
[2021-12-19 08:28] LABS: HEMATOCRIT 41.4 % (36.0-47.0); HEMOGLOBIN 14.5 g/dl (12.0-15.5); MEAN CORPUSCULAR VOLUME 108.4 fl (80.0-96.0); PLATELET COUNT, AUTOMATED 230 10^3/uL (150-450); RED BLOOD COUNT 3.82 10^6/uL (4.00-5.40); WHITE BLOOD COUNT 9.7 10^3/uL (4.0-10.0)
[2021-12-19] MEDS ORDERED: XIFA550T PO (08:28)
[2021-12-19] MEDS: CALCIUM CARBONATE 500 MG CHEW U/D PO SCH ×2 (08:56→21:25)
[2021-12-19] MEDS: LACTULOSE 20 GM/30 ML SYRUP UD PO SCH ×4 (08:56→21:25)
[2021-12-19] MEDS: CEPHALEXIN 500 MG CAP PO SCH ×2 (08:56→21:25)
[2021-12-19] MEDS: rifAXIMin 550 MG TAB (XIFAXAN) PO SCH ×2 (08:56→21:25)
[2021-12-19] MEDS: LORATADINE 10 MG TAB PO SCH (08:56)
[2021-12-19] MEDS: VITAMIN D (CHOLECALCIFEROL) 400 INTERNATIONAL UNITS TAB PO SCH ×2 (08:56→21:25)
[2021-12-19] MEDS: CLOPIDOGREL 75 MG TAB PO SCH (08:56)
[2021-12-19] MEDS: FUROSEMIDE 20 MG TAB PO SCH (08:57)
[2021-12-19] MEDS: oxyBUTYnin 5 MG TAB PO SCH ×2 (08:57→21:26)
[2021-12-19] MEDS: SPIRONOLACTONE 50 MG TAB PO SCH ×2 (08:57→17:39)
[2021-12-19] MEDS: HumaLOG INSULIN (NovoLOG) PER UNIT SC SCH ×4 (08:58→21:00)
[2021-12-19] MEDS: NADOLOL 20MG TABLET PO SCH (09:00)
[2021-12-19] MEDS: PANTOPRAZOLE 20 MG TAB PO SCH (09:02)
[2021-12-19 09:03] LABS: ALBUMIN 2.8 GM/DL (3.2-5.2); BILIRUBIN,TOTAL 1.4 MG/DL (0.2-1.0); CALCIUM LEVEL 9.9 MG/DL (8.8-10.2); CREATININE FOR GFR 1.37 MG/DL (0.55-1.30); GLOMERULAR FILTRATION RATE 41.9 (>45); POTASSIUM SERUM 4.1 MEQ/L (3.5-5.1); TOTAL PROTEIN 6.9 GM/DL (6.4-8.2)
[2021-12-19 14:00] VITALS: BP 105/60
[2021-12-19 20:51] VITALS: BP 112/73
[2021-12-19] MEDS: **NOTE PATIENT COMMENT** MISC XX SCH (21:00)
[2021-12-20 05:47] VITALS: BP 122/74
[2021-12-20] MEDS: HEPARIN SOD (PORCINE) 5000UNITS/ML 1ML VIAL/SYRINGE SC SCH ×3 (06:12→21:15)
[2021-12-20 06:21] LABS: HEMATOCRIT 42.9 % (36.0-47.0); HEMOGLOBIN 15.3 g/dl (12.0-15.5); MEAN CORPUSCULAR HEMOGLOBIN 38.6 pg (27.0-33.0); MEAN CORPUSCULAR HGB CONC 35.7 g/dl (32.0-36.5); MEAN CORPUSCULAR VOLUME 108.3 fl (80.0-96.0); PLATELET COUNT, AUTOMATED 254 10^3/uL (150-450); RED BLOOD COUNT 3.96 10^6/uL (4.00-5.40); WHITE BLOOD COUNT 10.3 10^3/uL (4.0-10.0)
[2021-12-20 06:47] LABS: ALBUMIN 2.8 GM/DL (3.2-5.2); BILIRUBIN,TOTAL 1.6 MG/DL (0.2-1.0); CALCIUM LEVEL 10.8 MG/DL (8.8-10.2); CREATININE FOR GFR 1.42 MG/DL (0.55-1.30); GLOMERULAR FILTRATION RATE 40.2 (>45); POTASSIUM SERUM 3.9 MEQ/L (3.5-5.1); TOTAL PROTEIN 6.8 GM/DL (6.4-8.2)
[2021-12-20] MEDS: HumaLOG INSULIN (NovoLOG) PER UNIT SC SCH ×4 (07:30→21:00)
[2021-12-20] MEDS: NADOLOL 20MG TABLET PO SCH (09:00)
[2021-12-20] MEDS: SPIRONOLACTONE 50 MG TAB PO SCH ×2 (10:25→18:44)
[2021-12-20] MEDS: PANTOPRAZOLE 20 MG TAB PO SCH (10:25)
[2021-12-20] MEDS: VITAMIN D (CHOLECALCIFEROL) 400 INTERNATIONAL UNITS TAB PO SCH ×2 (10:25→21:15)
[2021-12-20] MEDS: LACTULOSE 20 GM/30 ML SYRUP UD PO SCH ×4 (10:25→21:16)
[2021-12-20] MEDS: rifAXIMin 550 MG TAB (XIFAXAN) PO SCH ×2 (10:30→21:15)
[2021-12-20] MEDS: FUROSEMIDE 20 MG TAB PO SCH (10:30)
[2021-12-20] MEDS: CEPHALEXIN 500 MG CAP PO SCH ×2 (10:30→21:15)
[2021-12-20] MEDS: CLOPIDOGREL 75 MG TAB PO SCH (10:31)
[2021-12-20] MEDS: CALCIUM CARBONATE 500 MG CHEW U/D PO SCH ×2 (10:31→21:15)
[2021-12-20] MEDS: oxyBUTYnin 5 MG TAB PO SCH ×2 (10:31→21:15)
[2021-12-20] MEDS: LORATADINE 10 MG TAB PO SCH (10:31)
[2021-12-20 10:54] LABS: HEMATOCRIT 45.5 % (36.0-47.0); HEMOGLOBIN 15.7 g/dl (12.0-15.5); MEAN CORPUSCULAR HEMOGLOBIN 38.1 pg (27.0-33.0); MEAN CORPUSCULAR HGB CONC 34.5 g/dl (32.0-36.5); MEAN CORPUSCULAR VOLUME 110.4 fl (80.0-96.0); PLATELET COUNT, AUTOMATED 224 10^3/uL (150-450); RED BLOOD COUNT 4.12 10^6/uL (4.00-5.40); WHITE BLOOD COUNT 10.9 10^3/uL (4.0-10.0)
[2021-12-20 11:14] LABS: CALCIUM LEVEL 10.8 MG/DL (8.8-10.2); CREATININE FOR GFR 1.36 MG/DL (0.55-1.30); GLOMERULAR FILTRATION RATE 42.2 (>45)
[2021-12-20 14:00] VITALS: BP 142/88
[2021-12-20] MEDS: BISACODYL 10 MG SUPP PR SCH (14:25)
[2021-12-20] MEDS: DOCUSATE SODIUM 100MG CAPSULE PO SCH ×2 (14:26→21:15)
[2021-12-20] MEDS: NYSTATIN 100,000 UNITS/GM TOPICAL PWD 15 GM TOP SCH ×2 (14:32→21:16)
[2021-12-20] MEDS: **NOTE PATIENT COMMENT** MISC XX SCH (21:16)
[2021-12-20 22:00] VITALS: BP 126/66
[2021-12-21] MEDS: HEPARIN SOD (PORCINE) 5000UNITS/ML 1ML VIAL/SYRINGE SC SCH ×2 (05:08→14:29)
[2021-12-21 05:09] LABS: HEMATOCRIT 44.6 % (36.0-47.0); HEMOGLOBIN 15.8 g/dl (12.0-15.5); MEAN CORPUSCULAR HEMOGLOBIN 38.6 pg (27.0-33.0); MEAN CORPUSCULAR HGB CONC 35.4 g/dl (32.0-36.5); PLATELET COUNT, AUTOMATED 236 10^3/uL (150-450); RED BLOOD COUNT 4.09 10^6/uL (4.00-5.40); WHITE BLOOD COUNT 11.6 10^3/uL (4.0-10.0)
[2021-12-21 05:30] LABS: BILIRUBIN,TOTAL 2.4 MG/DL (0.2-1.0); CALCIUM LEVEL 10.7 MG/DL (8.8-10.2); CREATININE FOR GFR 1.59 MG/DL (0.55-1.30); GLOMERULAR FILTRATION RATE 35.3 (>45); POTASSIUM SERUM 4.4 MEQ/L (3.5-5.1); TOTAL PROTEIN 6.9 GM/DL (6.4-8.2)
[2021-12-21 06:00] VITALS: BP 133/70
[2021-12-21] MEDS: HumaLOG INSULIN (NovoLOG) PER UNIT SC SCH ×3 (07:30→17:43)
[2021-12-21 08:00] VITALS: BP 123/67
[2021-12-21] MEDS: LACTULOSE 20 GM/30 ML SYRUP UD PO SCH ×4 (09:12→19:56)
[2021-12-21] MEDS: SPIRONOLACTONE 50 MG TAB PO SCH ×2 (09:12→17:00)
[2021-12-21] MEDS: DOCUSATE SODIUM 100MG CAPSULE PO SCH ×2 (09:12→20:58)
[2021-12-21] MEDS: PANTOPRAZOLE 20 MG TAB PO SCH (09:12)
[2021-12-21] MEDS: NADOLOL 20MG TABLET PO SCH (09:12)
[2021-12-21] MEDS: BISACODYL 10 MG SUPP PR SCH (09:13)
[2021-12-21] MEDS: oxyBUTYnin 5 MG TAB PO SCH ×2 (09:13→19:55)
[2021-12-21] MEDS: CALCIUM CARBONATE 500 MG CHEW U/D PO SCH ×2 (09:13→19:55)
[2021-12-21] MEDS: rifAXIMin 550 MG TAB (XIFAXAN) PO SCH ×2 (09:13→19:55)
[2021-12-21] MEDS: VITAMIN D (CHOLECALCIFEROL) 400 INTERNATIONAL UNITS TAB PO SCH ×2 (09:13→19:55)
[2021-12-21] MEDS: LORATADINE 10 MG TAB PO SCH (09:13)
[2021-12-21] MEDS: CEPHALEXIN 500 MG CAP PO SCH (09:14)
[2021-12-21] MEDS: CLOPIDOGREL 75 MG TAB PO SCH (09:14)
[2021-12-21] MEDS: NYSTATIN 100,000 UNITS/GM TOPICAL PWD 15 GM TOP SCH ×2 (09:14→19:56)
[2021-12-21] MEDS: FUROSEMIDE 20 MG TAB PO SCH (09:14)
[2021-12-21] MEDS ORDERED: ONDANSETRON 4 MG ORAL DISINTEGRATING TAB PO PRN (12:20)
[2021-12-21 14:00] VITALS: BP 117/64
[2021-12-21] MEDS: SENNA 8.6 MG TAB (SENOKOT) PO SCH ×2 (14:29→19:55)
[2021-12-21] MEDS ORDERED: FLEET ENEMA PR PRN (19:25)
[2021-12-21] MEDS: **NOTE PATIENT COMMENT** MISC XX SCH (20:58)
[2021-12-21 22:00] VITALS: BP 133/62
[2021-12-22] MEDS: HumaLOG INSULIN (NovoLOG) PER UNIT SC SCH ×4 (00:18→18:07)
[2021-12-22] MEDS: HEPARIN SOD (PORCINE) 5000UNITS/ML 1ML VIAL/SYRINGE SC SCH ×4 (00:19→22:04)
[2021-12-22 06:00] VITALS: BP 126/64
[2021-12-22 06:45] LABS: HEMATOCRIT 44.6 % (36.0-47.0); HEMOGLOBIN 15.8 g/dl (12.0-15.5); MEAN CORPUSCULAR HEMOGLOBIN 38.6 pg (27.0-33.0); MEAN CORPUSCULAR HGB CONC 35.4 g/dl (32.0-36.5); PLATELET COUNT, AUTOMATED 238 10^3/uL (150-450); RED BLOOD COUNT 4.09 10^6/uL (4.00-5.40); WHITE BLOOD COUNT 12.1 10^3/uL (4.0-10.0)
[2021-12-22 07:04] LABS: CREATININE FOR GFR 1.69 MG/DL (0.55-1.30); GLOMERULAR FILTRATION RATE 32.9 (>45); POTASSIUM SERUM 4.5 MEQ/L (3.5-5.1)
[2021-12-22] MEDS: BISACODYL 10 MG SUPP PR SCH (09:00)
[2021-12-22] MEDS: CALCIUM CARBONATE 500 MG CHEW U/D PO SCH ×2 (09:32→20:33)
[2021-12-22] MEDS: DOCUSATE SODIUM 100MG CAPSULE PO SCH ×2 (09:33→20:33)
[2021-12-22] MEDS: oxyBUTYnin 5 MG TAB PO SCH ×2 (09:33→20:34)
[2021-12-22] MEDS: NADOLOL 20MG TABLET PO SCH (09:33)
[2021-12-22] MEDS: VITAMIN D (CHOLECALCIFEROL) 400 INTERNATIONAL UNITS TAB PO SCH ×2 (09:33→20:33)
[2021-12-22] MEDS: LACTULOSE 20 GM/30 ML SYRUP UD PO SCH ×4 (09:33→20:34)
[2021-12-22] MEDS: MIRALAX *UNIT DOSE* 17GM PACKET PO SCH (09:33)
[2021-12-22] MEDS: SENNA 8.6 MG TAB (SENOKOT) PO SCH ×2 (09:33→20:33)
[2021-12-22] MEDS: CLOPIDOGREL 75 MG TAB PO SCH (09:34)
[2021-12-22] MEDS: rifAXIMin 550 MG TAB (XIFAXAN) PO SCH ×2 (09:34→20:33)
[2021-12-22] MEDS: LORATADINE 10 MG TAB PO SCH (09:34)
[2021-12-22] MEDS: SPIRONOLACTONE 50 MG TAB PO SCH (09:34)
[2021-12-22] MEDS: NYSTATIN 100,000 UNITS/GM TOPICAL PWD 15 GM TOP SCH ×2 (09:35→20:34)
[2021-12-22] MEDS ORDERED: NS 1,000 ML IV SCH (09:50)
[2021-12-22] MEDS: PANTOPRAZOLE 20 MG TAB PO SCH (10:20)
[2021-12-22 14:00] VITALS: BP 148/86
[2021-12-22] MEDS: **NOTE PATIENT COMMENT** MISC XX SCH (20:34)
[2021-12-22 22:00] VITALS: BP 106/68
[2021-12-23] MEDS: HEPARIN SOD (PORCINE) 5000UNITS/ML 1ML VIAL/SYRINGE SC SCH ×3 (05:02→21:45)
[2021-12-23 06:00] VITALS: BP 122/76
[2021-12-23] MEDS: HumaLOG INSULIN (NovoLOG) PER UNIT SC SCH ×4 (06:00→17:34)
[2021-12-23 07:02] LABS: HEMATOCRIT 42.6 % (36.0-47.0); HEMOGLOBIN 15.1 g/dl (12.0-15.5); MEAN CORPUSCULAR HEMOGLOBIN 38.7 pg (27.0-33.0); MEAN CORPUSCULAR HGB CONC 35.4 g/dl (32.0-36.5); MEAN CORPUSCULAR VOLUME 109.2 fl (80.0-96.0); PLATELET COUNT, AUTOMATED 209 10^3/uL (150-450); WHITE BLOOD COUNT 12.6 10^3/uL (4.0-10.0)
[2021-12-23 07:33] LABS: CALCIUM LEVEL 10.6 MG/DL (8.8-10.2); CREATININE FOR GFR 1.63 MG/DL (0.55-1.30); GLOMERULAR FILTRATION RATE 34.3 (>45); POTASSIUM SERUM 4.5 MEQ/L (3.5-5.1)
[2021-12-23] MEDS: BISACODYL 10 MG SUPP PR SCH ×2 (09:00→09:13)
[2021-12-23] MEDS: LACTULOSE 20 GM/30 ML SYRUP UD PO SCH ×4 (09:10→21:43)
[2021-12-23] MEDS: SENNA 8.6 MG TAB (SENOKOT) PO SCH ×2 (09:10→21:45)
[2021-12-23] MEDS: CALCIUM CARBONATE 500 MG CHEW U/D PO SCH ×2 (09:10→21:44)
[2021-12-23] MEDS: DOCUSATE SODIUM 100MG CAPSULE PO SCH ×2 (09:11→21:45)
[2021-12-23] MEDS: FUROSEMIDE 20 MG TAB PO SCH ×2 (09:11→09:14)
[2021-12-23] MEDS: PANTOPRAZOLE 20 MG TAB PO SCH (09:11)
[2021-12-23] MEDS: SPIRONOLACTONE 50 MG TAB PO SCH ×2 (09:11→17:33)
[2021-12-23] MEDS: rifAXIMin 550 MG TAB (XIFAXAN) PO SCH ×2 (09:11→21:45)
[2021-12-23] MEDS: oxyBUTYnin 5 MG TAB PO SCH ×2 (09:12→21:45)
[2021-12-23] MEDS: LORATADINE 10 MG TAB PO SCH (09:12)
[2021-12-23] MEDS: CLOPIDOGREL 75 MG TAB PO SCH (09:12)
[2021-12-23] MEDS: NADOLOL 20MG TABLET PO SCH (09:13)
[2021-12-23] MEDS: VITAMIN D (CHOLECALCIFEROL) 400 INTERNATIONAL UNITS TAB PO SCH ×2 (09:13→21:45)
[2021-12-23] MEDS: MIRALAX *UNIT DOSE* 17GM PACKET PO SCH ×2 (09:13→21:44)
[2021-12-23] MEDS: NYSTATIN 100,000 UNITS/GM TOPICAL PWD 15 GM TOP SCH ×2 (09:14→21:46)
[2021-12-23] MEDS: **NOTE PATIENT COMMENT** MISC XX SCH (21:00)
[2021-12-24] MEDS: HumaLOG INSULIN (NovoLOG) PER UNIT SC SCH ×5 (00:22→23:55)
[2021-12-24 06:00] VITALS: BP 108/67
[2021-12-24] MEDS: HEPARIN SOD (PORCINE) 5000UNITS/ML 1ML VIAL/SYRINGE SC SCH ×3 (06:04→21:10)
[2021-12-24 06:51] LABS: HEMATOCRIT 42.1 % (36.0-47.0); HEMOGLOBIN 14.8 g/dl (12.0-15.5); MEAN CORPUSCULAR HEMOGLOBIN 38.5 pg (27.0-33.0); MEAN CORPUSCULAR HGB CONC 35.2 g/dl (32.0-36.5); MEAN CORPUSCULAR VOLUME 109.6 fl (80.0-96.0); PLATELET COUNT, AUTOMATED 200 10^3/uL (150-450); RED BLOOD COUNT 3.84 10^6/uL (4.00-5.40)
[2021-12-24 07:11] LABS: CALCIUM LEVEL 11.5 MG/DL (8.8-10.2); CREATININE FOR GFR 1.78 MG/DL (0.55-1.30)
[2021-12-24] MEDS: NADOLOL 20MG TABLET PO SCH (09:00)
[2021-12-24] MEDS: BISACODYL 10 MG SUPP PR SCH (09:00)
[2021-12-24] MEDS: CALCIUM CARBONATE 500 MG CHEW U/D PO SCH ×2 (10:09→21:10)
[2021-12-24] MEDS: SENNA 8.6 MG TAB (SENOKOT) PO SCH ×2 (10:09→21:00)
[2021-12-24] MEDS: NYSTATIN 100,000 UNITS/GM TOPICAL PWD 15 GM TOP SCH ×2 (10:09→21:12)
[2021-12-24] MEDS: rifAXIMin 550 MG TAB (XIFAXAN) PO SCH ×2 (10:09→21:10)
[2021-12-24] MEDS: VITAMIN D (CHOLECALCIFEROL) 400 INTERNATIONAL UNITS TAB PO SCH ×2 (10:09→21:10)
[2021-12-24] MEDS: MIRALAX *UNIT DOSE* 17GM PACKET PO SCH (10:09)
[2021-12-24] MEDS: LORATADINE 10 MG TAB PO SCH (10:10)
[2021-12-24] MEDS: SPIRONOLACTONE 50 MG TAB PO SCH ×2 (10:10→18:03)
[2021-12-24] MEDS: oxyBUTYnin 5 MG TAB PO SCH ×2 (10:10→21:11)
[2021-12-24] MEDS: CLOPIDOGREL 75 MG TAB PO SCH (10:10)
[2021-12-24] MEDS: PANTOPRAZOLE 20 MG TAB PO SCH (10:10)
[2021-12-24] MEDS: FUROSEMIDE 20 MG TAB PO SCH ×2 (10:10→10:26)
[2021-12-24] MEDS: DOCUSATE SODIUM 100MG CAPSULE PO SCH (10:10)
[2021-12-24] MEDS: LACTULOSE 20 GM/30 ML SYRUP UD PO SCH ×4 (10:12→22:19)
[2021-12-24] MEDS ORDERED: BISACODYL 10 MG SUPP PR PRN (20:10)
[2021-12-24 21:00] VITALS: BP 112/68
[2021-12-24] MEDS: **NOTE PATIENT COMMENT** MISC XX SCH (21:00)
[2021-12-25] MEDS: HEPARIN SOD (PORCINE) 5000UNITS/ML 1ML VIAL/SYRINGE SC SCH ×3 (05:58→21:41)
[2021-12-25] MEDS: HumaLOG INSULIN (NovoLOG) PER UNIT SC SCH ×3 (05:59→18:04)
[2021-12-25 06:00] VITALS: BP 118/74
[2021-12-25 06:36] LABS: HEMATOCRIT 41.5 % (36.0-47.0); HEMOGLOBIN 14.6 g/dl (12.0-15.5); MEAN CORPUSCULAR HEMOGLOBIN 38.5 pg (27.0-33.0); MEAN CORPUSCULAR HGB CONC 35.2 g/dl (32.0-36.5); MEAN CORPUSCULAR VOLUME 109.5 fl (80.0-96.0); PLATELET COUNT, AUTOMATED 201 10^3/uL (150-450); RED BLOOD COUNT 3.79 10^6/uL (4.00-5.40); WHITE BLOOD COUNT 11.5 10^3/uL (4.0-10.0)
[2021-12-25 06:59] LABS: CALCIUM LEVEL 11.2 MG/DL (8.8-10.2); CREATININE FOR GFR 1.49 MG/DL (0.55-1.30); POTASSIUM SERUM 4.1 MEQ/L (3.5-5.1)
[2021-12-25] MEDS: SPIRONOLACTONE 50 MG TAB PO SCH ×2 (09:15→17:47)
[2021-12-25] MEDS: SENNA 8.6 MG TAB (SENOKOT) PO SCH ×2 (09:15→21:39)
[2021-12-25] MEDS: rifAXIMin 550 MG TAB (XIFAXAN) PO SCH ×2 (09:15→21:39)
[2021-12-25] MEDS: CALCIUM CARBONATE 500 MG CHEW U/D PO SCH ×2 (09:15→21:38)
[2021-12-25] MEDS: PANTOPRAZOLE 20 MG TAB PO SCH (09:16)
[2021-12-25] MEDS: CLOPIDOGREL 75 MG TAB PO SCH (09:16)
[2021-12-25] MEDS: FUROSEMIDE 20 MG TAB PO SCH (09:16)
[2021-12-25] MEDS: LORATADINE 10 MG TAB PO SCH (09:17)
[2021-12-25] MEDS: LACTULOSE 20 GM/30 ML SYRUP UD PO SCH ×4 (09:17→21:38)
[2021-12-25] MEDS: oxyBUTYnin 5 MG TAB PO SCH ×2 (09:17→21:40)
[2021-12-25] MEDS: VITAMIN D (CHOLECALCIFEROL) 400 INTERNATIONAL UNITS TAB PO SCH ×2 (09:17→21:39)
[2021-12-25] MEDS: NYSTATIN 100,000 UNITS/GM TOPICAL PWD 15 GM TOP SCH ×2 (09:18→21:41)
[2021-12-25] MEDS: NADOLOL 20MG TABLET PO SCH (09:29)
[2021-12-25] MEDS: **NOTE PATIENT COMMENT** MISC XX SCH (21:00)
[2021-12-26] MEDS: HumaLOG INSULIN (NovoLOG) PER UNIT SC SCH ×2 (00:59→06:07)
[2021-12-26 06:00] VITALS: BP 108/63
[2021-12-26] MEDS: HEPARIN SOD (PORCINE) 5000UNITS/ML 1ML VIAL/SYRINGE SC SCH (06:07)
[2021-12-26 08:11] LABS: HEMATOCRIT 41.2 % (36.0-47.0); HEMOGLOBIN 14.8 g/dl (12.0-15.5); MEAN CORPUSCULAR HEMOGLOBIN 39.4 pg (27.0-33.0); MEAN CORPUSCULAR HGB CONC 35.9 g/dl (32.0-36.5); MEAN CORPUSCULAR VOLUME 109.6 fl (80.0-96.0); PLATELET COUNT, AUTOMATED 187 10^3/uL (150-450); RED BLOOD COUNT 3.76 10^6/uL (4.00-5.40)
[2021-12-26] MEDS ORDERED: FLEEENE12 PR (08:25)
[2021-12-26] MEDS ORDERED: LACT20EL PO (08:25)
[2021-12-26] MEDS ORDERED: ONDA4TAB6 PO (08:25)
[2021-12-26] MEDS ORDERED: SENN18TA PO (08:25)
[2021-12-26] MEDS ORDERED: PANT20TA6 PO (08:25)
[2021-12-26] MEDS ORDERED: BISA10SU PR (08:25)
[2021-12-26] MEDS: LACTULOSE 20 GM/30 ML SYRUP UD PO SCH (08:29)
[2021-12-26] MEDS: NYSTATIN 100,000 UNITS/GM TOPICAL PWD 15 GM TOP SCH (08:29)
[2021-12-26] MEDS: LORATADINE 10 MG TAB PO SCH (08:30)
[2021-12-26] MEDS: SPIRONOLACTONE 50 MG TAB PO SCH (08:30)
[2021-12-26] MEDS: VITAMIN D (CHOLECALCIFEROL) 400 INTERNATIONAL UNITS TAB PO SCH (08:30)
[2021-12-26] MEDS: rifAXIMin 550 MG TAB (XIFAXAN) PO SCH (08:30)
[2021-12-26] MEDS: PANTOPRAZOLE 20 MG TAB PO SCH (08:30)
[2021-12-26] MEDS: CALCIUM CARBONATE 500 MG CHEW U/D PO SCH (08:30)
[2021-12-26] MEDS: SENNA 8.6 MG TAB (SENOKOT) PO SCH (08:30)
[2021-12-26] MEDS: CLOPIDOGREL 75 MG TAB PO SCH (08:31)
[2021-12-26] MEDS: oxyBUTYnin 5 MG TAB PO SCH (08:31)
[2021-12-26] MEDS: FUROSEMIDE 20 MG TAB PO SCH (08:31)
[2021-12-26 08:35] VITALS: BP 101/66
[2021-12-26] MEDS: NADOLOL 20MG TABLET PO SCH (08:35)
[2021-12-26 08:37] LABS: CREATININE FOR GFR 1.62 MG/DL (0.55-1.30); GLOMERULAR FILTRATION RATE 34.5 (>45); POTASSIUM SERUM 4.2 MEQ/L (3.5-5.1)
== END 2021-12-26 12:31 | DRG 442 ==
LOC: M ED 22:22 → M ED INP 12-14 03:37 → ENRESERV 12-14 04:17 → M PCU 12-14 05:23 → M MSPAV 12-15 18:00
PROVIDERS: ADMIT Family Medicine; ATTEND Internal Medicine
DX: K72.00 Acute and subacute hepatic failure without coma (principal); N18.4 Chronic kidney disease, stage 4 (severe); N39.0 Urinary tract infection, site not specified; Z91.14 Patient's other noncompliance with medication regimen; R53.1 Weakness; E11.22 Type 2 diabetes mellitus with diabetic chronic kidney disease; N31.9 Neuromuscular dysfunction of bladder, unspecified; I12.9 Hypertensive chronic kidney disease with stage 1 through stage 4 chronic kidney disease, or unspecified chronic kidney disease; Z86.73 Personal history of transient ischemic attack (TIA), and cerebral infarction without residual deficits; K21.9 Gastro-esophageal reflux disease without esophagitis; E55.9 Vitamin D deficiency, unspecified; G43.909 Migraine, unspecified, not intractable, without status migrainosus; F32.A Depression, unspecified; F41.9 Anxiety disorder, unspecified; E66.9 Obesity, unspecified; Z68.37 Body mass index [BMI] 37.0-37.9, adult; Z79.899 Other long term (current) drug therapy; Z88.1 Allergy status to other antibiotic agents; Z88.8 Allergy status to other drugs, medicaments and biological substances; Z91.040 Latex allergy status; Z91.018 Allergy to other foods; Z87.891 Personal history of nicotine dependence; F10.11 Alcohol abuse, in remission; G47.33 Obstructive sleep apnea (adult) (pediatric); Z91.19 Patient's noncompliance with other medical treatment and regimen; M51.36 Other intervertebral disc degeneration, lumbar region; Z20.822 Contact with and (suspected) exposure to COVID-19; K70.30 Alcoholic cirrhosis of liver without ascites; E78.5 Hyperlipidemia, unspecified; D50.9 Iron deficiency anemia, unspecified; Z98.1 Arthrodesis status; Z98.84 Bariatric surgery status; Z90.49 Acquired absence of other specified parts of digestive tract

== ENCOUNTER 2021-12-27 14:13 | Emergency (ER) | payer MEDICARE, MEDICAID ==
[2021-12-27] MEDS ORDERED: LACTULOSE 20 GM/30 ML SYRUP UD PO ONE ×2 (14:50→18:15)
[2021-12-27 16:08] LABS: BASO # 0.1 10^3/uL (0.0-0.2); BASO % 1.2 % (0.0-1.0); EOS # 0.3 10^3/uL (0.0-0.5); HEMATOCRIT 42.4 % (36.0-47.0); HEMOGLOBIN 15.3 g/dl (12.0-15.5); LYMPH # 2.7 10^3/uL (1.5-5.0); LYMPH % 25.3 % (24.0-44.0); MEAN CORPUSCULAR HEMOGLOBIN 38.6 pg (27.0-33.0); MEAN CORPUSCULAR HGB CONC 36.1 g/dl (32.0-36.5); MEAN CORPUSCULAR VOLUME 107.1 fl (80.0-96.0); MONO # 1.4 10^3/uL (0.0-0.8); MONO % 13.1 % (2.0-8.0); NEUTROPHILS # 5.7 10^3/uL (1.5-8.5); NEUTROPHILS % 54.1 % (36.0-66.0); PLATELET COUNT, AUTOMATED 198 10^3/uL (150-450); RED BLOOD COUNT 3.96 10^6/uL (4.00-5.40); WHITE BLOOD COUNT 10.5 10^3/uL (4.0-10.0)
[2021-12-27] MEDS ORDERED: NS 1,000 ML IV ONE (16:40)
[2021-12-27 16:45] LABS: BILIRUBIN,DIRECT 0.7 MG/DL (0.0-0.2); BILIRUBIN,TOTAL 2.6 MG/DL (0.2-1.0); CALCIUM LEVEL 12.3 MG/DL (8.8-10.2); CREATININE FOR GFR 1.95 MG/DL (0.55-1.30); GLOMERULAR FILTRATION RATE 27.9 (>45); POTASSIUM SERUM 4.6 MEQ/L (3.5-5.1); THYROID STIMULATING HORMONE 3.58 uIU/ML (0.358-3.740); TOTAL PROTEIN 6.7 GM/DL (6.4-8.2)
[2021-12-27 17:45] VITALS: BP 121/69
== END 2021-12-27 19:34 | disposition home or self-care (01) ==
LOC: EDBD 14:13 → M ED 14:13
DX: R94.5 Abnormal results of liver function studies (principal); E86.0 Dehydration; I10 Essential (primary) hypertension; K58.9 Irritable bowel syndrome, unspecified; K74.60 Unspecified cirrhosis of liver; K72.90 Hepatic failure, unspecified without coma; Z98.84 Bariatric surgery status

== ENCOUNTER → 2021-12-27 | Outpatient (REF) ==
[~2021-12-27] MED LIST changes: +BISA10SU PR; +FLEEENE12 PR; +ONDA4TAB6 PO; +PANT20TA6 PO; +TUMS500C PO; +XIFA550T PO
[2021-12-27 11:48] LABS: BASO # 0.1 10^3/uL (0.0-0.2); EOS # 0.4 10^3/uL (0.0-0.5); EOS % 4.2 % (0.0-3.0); HEMATOCRIT 41.5 % (36.0-47.0); HEMOGLOBIN 15.1 g/dl (12.0-15.5); LYMPH # 3.4 10^3/uL (1.5-5.0); LYMPH % 33.8 % (24.0-44.0); MEAN CORPUSCULAR HEMOGLOBIN 39.5 pg (27.0-33.0); MEAN CORPUSCULAR HGB CONC 36.4 g/dl (32.0-36.5); MEAN CORPUSCULAR VOLUME 108.6 fl (80.0-96.0); MONO # 1.1 10^3/uL (0.0-0.8); MONO % 10.6 % (2.0-8.0); NEUTROPHILS # 4.9 10^3/uL (1.5-8.5); NEUTROPHILS % 48.6 % (36.0-66.0); PLATELET COUNT, AUTOMATED 193 10^3/uL (150-450); RED BLOOD COUNT 3.82 10^6/uL (4.00-5.40); WHITE BLOOD COUNT 10.1 10^3/uL (4.0-10.0)
[2021-12-27 12:12] LABS: ALBUMIN 2.9 GM/DL (3.2-5.2); BILIRUBIN,TOTAL 2.7 MG/DL (0.2-1.0); CALCIUM LEVEL 11.4 MG/DL (8.8-10.2); CREATININE FOR GFR 1.76 MG/DL (0.55-1.30); GLOMERULAR FILTRATION RATE 31.4 (>45); POTASSIUM SERUM 4.7 MEQ/L (3.5-5.1); TOTAL PROTEIN 6.3 GM/DL (6.4-8.2)
== END ==
PROVIDERS: ATTEND Internal Medicine
DX: K72.90 Hepatic failure, unspecified without coma (principal)

== ENCOUNTER → 2021-12-28 | Outpatient (REF) ==
[2021-12-29 10:38] LABS: HEMATOCRIT 40.9 % (36.0-47.0); HEMOGLOBIN 14.5 g/dl (12.0-15.5); MEAN CORPUSCULAR HEMOGLOBIN 39.7 pg (27.0-33.0); MEAN CORPUSCULAR HGB CONC 35.5 g/dl (32.0-36.5); MEAN CORPUSCULAR VOLUME 112.1 fl (80.0-96.0); PLATELET COUNT, AUTOMATED 149 10^3/uL (150-450); RED BLOOD COUNT 3.65 10^6/uL (4.00-5.40); WHITE BLOOD COUNT 11.3 10^3/uL (4.0-10.0)
[2021-12-29 11:10] LABS: ALBUMIN 2.8 GM/DL (3.2-5.2); BILIRUBIN,DIRECT 1.1 MG/DL (0.0-0.2); BILIRUBIN,TOTAL 2.9 MG/DL (0.2-1.0); CALCIUM LEVEL 10.7 MG/DL (8.8-10.2); CREATININE FOR GFR 1.86 MG/DL (0.55-1.30); GLOMERULAR FILTRATION RATE 29.4 (>45); POTASSIUM SERUM 3.9 MEQ/L (3.5-5.1); TOTAL PROTEIN 6.1 GM/DL (6.4-8.2)
== END ==
PROVIDERS: ATTEND Internal Medicine
DX: K72.90 Hepatic failure, unspecified without coma (principal)

== ENCOUNTER → 2021-12-28 | Outpatient (REF) ==
[2021-12-28 15:29] LABS: ALBUMIN 2.7 GM/DL (3.2-5.2); BILIRUBIN,DIRECT 0.2 MG/DL (0.0-0.2); BILIRUBIN,TOTAL 1.9 MG/DL (0.2-1.0); CALCIUM LEVEL 11.3 MG/DL (8.8-10.2); CREATININE FOR GFR 2.01 MG/DL (0.55-1.30); GLOMERULAR FILTRATION RATE 26.9 (>45); POTASSIUM SERUM 6.3 MEQ/L (3.5-5.1); TOTAL PROTEIN 6.4 GM/DL (6.4-8.2)
== END ==
PROVIDERS: ATTEND Physician Assistant
DX: K72.90 Hepatic failure, unspecified without coma (principal)

== ENCOUNTER → 2021-12-29 | Outpatient (REF) | PROVIDERS: ATTEND Physician Assistant | DX: K72.90 Hepatic failure, unspecified without coma (principal) ==

== ENCOUNTER → 2022-01-01 | Outpatient (REF) ==
[2022-01-01 10:15] LABS: HEMATOCRIT 34.4 % (36.0-47.0); HEMOGLOBIN 12.4 g/dl (12.0-15.5); MEAN CORPUSCULAR HEMOGLOBIN 39.9 pg (27.0-33.0); MEAN CORPUSCULAR VOLUME 110.6 fl (80.0-96.0); PLATELET COUNT, AUTOMATED 102 10^3/uL (150-450); RED BLOOD COUNT 3.11 10^6/uL (4.00-5.40); WHITE BLOOD COUNT 9.9 10^3/uL (4.0-10.0)
[2022-01-01 10:39] LABS: ALBUMIN 2.4 GM/DL (3.2-5.2); BILIRUBIN,DIRECT 0.6 MG/DL (0.0-0.2); BILIRUBIN,TOTAL 1.9 MG/DL (0.2-1.0); CALCIUM LEVEL 9.2 MG/DL (8.8-10.2); CREATININE FOR GFR 1.03 MG/DL (0.55-1.30); GLOMERULAR FILTRATION RATE 58.2 (>45); POTASSIUM SERUM 4.2 MEQ/L (3.5-5.1); TOTAL PROTEIN 5.3 GM/DL (6.4-8.2)
== END ==
PROVIDERS: ATTEND Internal Medicine
DX: K72.90 Hepatic failure, unspecified without coma (principal)

== ENCOUNTER → 2022-01-02 | Outpatient (REF) ==
[2022-01-02 15:50] LABS: AMORPHOUS SEDIMENT SMALL (NEGATIVE); APPEARANCE, URINE CLOUDY (CLEAR); BACTERIA, URINE AUTO 2+ (NEGATIVE); BILIRUBIN, URINE AUTO NEGATIVE (NEGATIVE); BLOOD, URINE BLOOD 3+ (NEGATIVE); COLOR, URINE YELLOW (YELLOW); GLUCOSE, URINE (UA) AUTO 3+ mg/dL (NEGATIVE); KETONE, URINE AUTO NEGATIVE (NEGATIVE); LEUKOCYTE ESTERASE, URINE AUTO 2+ (NEGATIVE); MUCUS, URINE SMALL (NEGATIVE); NITRITE, URINE AUTO NEGATIVE (NEGATIVE); PROTEIN, URINE AUTO NEGATIVE (NEGATIVE); RBC, URINE AUTO 54 /HPF (0-3); SPECIFIC GRAVITY URINE AUTO 1.008 (1.002-1.035); SQUAMOUS EPITHELIAL CELL UR AU 1 /HPF (0-6); UROBILINOGEN, URINE AUTO 0.2 mg/dL (0.0-2.0); WBC, URINE AUTO 126 /HPF (0-3)
== END ==
PROVIDERS: ATTEND Internal Medicine
DX: N30.00 Acute cystitis without hematuria (principal)

== ENCOUNTER → 2022-01-03 | Outpatient (REF) ==
[2022-01-03 10:11] LABS: HEMATOCRIT 34.8 % (36.0-47.0); HEMOGLOBIN 12.2 g/dl (12.0-15.5); MEAN CORPUSCULAR HEMOGLOBIN 39.6 pg (27.0-33.0); MEAN CORPUSCULAR HGB CONC 35.1 g/dl (32.0-36.5); PLATELET COUNT, AUTOMATED 110 10^3/uL (150-450); RED BLOOD COUNT 3.08 10^6/uL (4.00-5.40); WHITE BLOOD COUNT 14.2 10^3/uL (4.0-10.0)
[2022-01-03 10:51] LABS: CALCIUM LEVEL 8.5 MG/DL (8.8-10.2); CREATININE FOR GFR 1.23 MG/DL (0.55-1.30); GLOMERULAR FILTRATION RATE 47.4 (>45); POTASSIUM SERUM 4.2 MEQ/L (3.5-5.1)
== END ==
PROVIDERS: ATTEND Internal Medicine
DX: N31.9 Neuromuscular dysfunction of bladder, unspecified (principal)

== ENCOUNTER → 2022-01-04 | Outpatient (REF) ==
[2022-01-04 14:18] LABS: HEMATOCRIT 34.5 % (36.0-47.0); HEMOGLOBIN 11.7 g/dl (12.0-15.5); MEAN CORPUSCULAR HEMOGLOBIN 39.5 pg (27.0-33.0); MEAN CORPUSCULAR HGB CONC 33.9 g/dl (32.0-36.5); PLATELET COUNT, AUTOMATED 111 10^3/uL (150-450); RED BLOOD COUNT 2.96 10^6/uL (4.00-5.40); WHITE BLOOD COUNT 9.1 10^3/uL (4.0-10.0)
[2022-01-04 14:41] LABS: MEAN CORPUSCULAR VOLUME 116.6 fl (80.0-96.0)
[2022-01-04 14:46] LABS: CALCIUM LEVEL 8.5 MG/DL (8.8-10.2); CREATININE FOR GFR 1.3 MG/DL (0.55-1.30); GLOMERULAR FILTRATION RATE 44.5 (>45); POTASSIUM SERUM 3.6 MEQ/L (3.5-5.1)
== END ==
PROVIDERS: ATTEND Internal Medicine
DX: N39.0 Urinary tract infection, site not specified (principal)

== ENCOUNTER → 2022-01-15 | Outpatient (REF) ==
[2022-01-15 10:24] LABS: HEMATOCRIT 36.3 % (36.0-47.0); HEMOGLOBIN 12.4 g/dl (12.0-15.5); MEAN CORPUSCULAR HEMOGLOBIN 39.4 pg (27.0-33.0); MEAN CORPUSCULAR HGB CONC 34.2 g/dl (32.0-36.5); PLATELET COUNT, AUTOMATED 196 10^3/uL (150-450); RED BLOOD COUNT 3.15 10^6/uL (4.00-5.40); WHITE BLOOD COUNT 6.7 10^3/uL (4.0-10.0)
[2022-01-15 10:28] LABS: MEAN CORPUSCULAR VOLUME 115.2 fl (80.0-96.0)
[2022-01-15 11:11] LABS: ALBUMIN 2.3 GM/DL (3.2-5.2); BILIRUBIN,DIRECT 0.6 MG/DL (0.0-0.2); BILIRUBIN,TOTAL 1.5 MG/DL (0.2-1.0); CREATININE FOR GFR 1.16 MG/DL (0.55-1.30); GLOMERULAR FILTRATION RATE 50.7 (>45); POTASSIUM SERUM 3.9 MEQ/L (3.5-5.1); TOTAL PROTEIN 5.3 GM/DL (6.4-8.2)
== END ==
PROVIDERS: ATTEND Internal Medicine
DX: K72.90 Hepatic failure, unspecified without coma (principal)

== ENCOUNTER → 2022-01-22 | Outpatient (REF) ==
[2022-01-22 11:44] LABS: HEMATOCRIT 35.8 % (36.0-47.0); HEMOGLOBIN 12.2 g/dl (12.0-15.5); MEAN CORPUSCULAR HEMOGLOBIN 39.5 pg (27.0-33.0); MEAN CORPUSCULAR HGB CONC 34.1 g/dl (32.0-36.5); PLATELET COUNT, AUTOMATED 166 10^3/uL (150-450); RED BLOOD COUNT 3.09 10^6/uL (4.00-5.40); WHITE BLOOD COUNT 6.2 10^3/uL (4.0-10.0)
[2022-01-22 12:16] LABS: ALBUMIN 2.3 GM/DL (3.2-5.2); BILIRUBIN,DIRECT 0.5 MG/DL (0.0-0.2); CALCIUM LEVEL 8.4 MG/DL (8.8-10.2); CREATININE FOR GFR 1.21 MG/DL (0.55-1.30); GLOMERULAR FILTRATION RATE 48.3 (>45); POTASSIUM SERUM 3.5 MEQ/L (3.5-5.1); TOTAL PROTEIN 5.1 GM/DL (6.4-8.2)
[2022-01-22 12:27] LABS: MEAN CORPUSCULAR VOLUME 115.9 fl (80.0-96.0)
== END ==
PROVIDERS: ATTEND Internal Medicine
DX: K72.90 Hepatic failure, unspecified without coma (principal)

== ENCOUNTER → 2022-01-26 | Outpatient (REF) | payer MEDICARE, MEDICAID | PROVIDERS: ATTEND Internal Medicine | DX: K72.90 Hepatic failure, unspecified without coma (principal) ==

== ENCOUNTER → 2022-01-29 | Outpatient (REF) ==
[2022-01-29 13:06] LABS: HEMATOCRIT 34.4 % (36.0-47.0); MEAN CORPUSCULAR HEMOGLOBIN 39.7 pg (27.0-33.0); MEAN CORPUSCULAR HGB CONC 34.9 g/dl (32.0-36.5); MEAN CORPUSCULAR VOLUME 113.9 fl (80.0-96.0); PLATELET COUNT, AUTOMATED 149 10^3/uL (150-450); RED BLOOD COUNT 3.02 10^6/uL (4.00-5.40); WHITE BLOOD COUNT 6.6 10^3/uL (4.0-10.0)
[2022-01-29 13:29] LABS: CALCIUM LEVEL 8.8 MG/DL (8.8-10.2); CREATININE FOR GFR 1.07 MG/DL (0.55-1.30); GLOMERULAR FILTRATION RATE 55.7 (>45); POTASSIUM SERUM 3.5 MEQ/L (3.5-5.1)
== END ==
PROVIDERS: ATTEND Internal Medicine
DX: N18.9 Chronic kidney disease, unspecified (principal)

== ENCOUNTER → 2022-02-05 | Outpatient (REF) | payer MEDICARE, MEDICAID ==
[2022-02-05 13:07] LABS: HEMOGLOBIN 10.5 g/dl (12.0-15.5); MEAN CORPUSCULAR HEMOGLOBIN 38.6 pg (27.0-33.0); MEAN CORPUSCULAR HGB CONC 33.9 g/dl (32.0-36.5); PLATELET COUNT, AUTOMATED 147 10^3/uL (150-450); RED BLOOD COUNT 2.72 10^6/uL (4.00-5.40); WHITE BLOOD COUNT 5.9 10^3/uL (4.0-10.0)
[2022-02-05 13:47] LABS: BILIRUBIN,DIRECT 0.4 MG/DL (0.0-0.2); CREATININE FOR GFR 1.11 MG/DL (0.55-1.30); GLOMERULAR FILTRATION RATE 53.4 (>45); POTASSIUM SERUM 3.7 MEQ/L (3.5-5.1); TOTAL PROTEIN 4.6 GM/DL (6.4-8.2)
== END ==
PROVIDERS: ATTEND Internal Medicine
DX: K72.90 Hepatic failure, unspecified without coma (principal)

== ENCOUNTER → 2022-02-08 | Outpatient (REF) | payer MEDICARE, MEDICAID | PROVIDERS: ATTEND Internal Medicine | DX: K72.90 Hepatic failure, unspecified without coma (principal) ==

== ENCOUNTER → 2022-02-12 | Outpatient (REF) | payer MEDICARE, MEDICAID ==
[2022-02-12 12:59] LABS: HEMATOCRIT 31.2 % (36.0-47.0); HEMOGLOBIN 10.8 g/dl (12.0-15.5); MEAN CORPUSCULAR HEMOGLOBIN 38.8 pg (27.0-33.0); MEAN CORPUSCULAR HGB CONC 34.6 g/dl (32.0-36.5); MEAN CORPUSCULAR VOLUME 112.2 fl (80.0-96.0); PLATELET COUNT, AUTOMATED 168 10^3/uL (150-450); RED BLOOD COUNT 2.78 10^6/uL (4.00-5.40); WHITE BLOOD COUNT 5.9 10^3/uL (4.0-10.0)
[2022-02-12 13:41] LABS: CALCIUM LEVEL 8.9 MG/DL (8.8-10.2); CREATININE FOR GFR 1.16 MG/DL (0.55-1.30); GLOMERULAR FILTRATION RATE 50.7 (>45); POTASSIUM SERUM 3.2 MEQ/L (3.5-5.1)
== END ==
PROVIDERS: ATTEND Physician Assistant
DX: K72.90 Hepatic failure, unspecified without coma (principal)

== ENCOUNTER → 2022-02-12 | Outpatient (REF) | payer MEDICARE, MEDICAID ==
[2022-02-12 13:07] LABS: INR 1.18; PROTHROMBIN TIME 15.4 SECONDS (12.7-14.5)
[2022-02-12 13:24] LABS: PERCENT SATURATION 90.2 % (13.2-45.0)
[2022-02-12 13:35] LABS: FOLATE 7.7 NG/ML (>5.4)
== END ==
PROVIDERS: ATTEND Internal Medicine
DX: K74.60 Unspecified cirrhosis of liver (principal)

== ENCOUNTER → 2022-02-12 | Outpatient (CLI) | payer MEDICARE, MEDICAID | LOC: M WHC 09:39 | PROVIDERS: ATTEND Physician Assistant | DX: K72.90 Hepatic failure, unspecified without coma (principal); R18.8 Other ascites ==

== ENCOUNTER → 2022-02-22 | Outpatient (REF) | payer MEDICARE, MEDICAID ==
[2022-02-22 14:35] LABS: HEMATOCRIT 33.3 % (36.0-47.0); HEMOGLOBIN 11.3 g/dl (12.0-15.5); MEAN CORPUSCULAR HGB CONC 33.9 g/dl (32.0-36.5); MEAN CORPUSCULAR VOLUME 112.1 fl (80.0-96.0); PLATELET COUNT, AUTOMATED 137 10^3/uL (150-450); RED BLOOD COUNT 2.97 10^6/uL (4.00-5.40); WHITE BLOOD COUNT 4.3 10^3/uL (4.0-10.0)
[2022-02-22 15:20] LABS: ALBUMIN 2.2 GM/DL (3.2-5.2); BILIRUBIN,DIRECT 0.4 MG/DL (0.0-0.2); BILIRUBIN,TOTAL 1.5 MG/DL (0.2-1.0); CALCIUM LEVEL 8.6 MG/DL (8.8-10.2); CREATININE FOR GFR 1.45 MG/DL (0.55-1.30); GLOMERULAR FILTRATION RATE 39.2 (>45); POTASSIUM SERUM 4.1 MEQ/L (3.5-5.1); TOTAL PROTEIN 5.2 GM/DL (6.4-8.2)
== END ==
PROVIDERS: ATTEND Internal Medicine
DX: K74.60 Unspecified cirrhosis of liver (principal)

== ENCOUNTER → 2022-02-23 | Outpatient (REF) | payer MEDICARE, MEDICAID | PROVIDERS: ATTEND Internal Medicine | DX: K74.60 Unspecified cirrhosis of liver (principal) ==

== ENCOUNTER 2022-03-31 14:01 | Emergency (ER) | payer MEDICARE, MEDICAID ==
[~2022-03-31 14:01] MED LIST changes: -ZONI100C17 PO; +ZONI100C67 PO
== END 2022-03-31 16:55 | disposition expired ==
LOC: EDBD 14:01 → M ED 14:01
DX: I46.9 Cardiac arrest, cause unspecified (principal); Z66 Do not resuscitate